=== PATIENT | female | born 1945 | race Caucasian/White ===

== ENCOUNTER → 2020-05-23 09:55 | Outpatient (BNVA) | payer MEDICARE, SELFPAY | PROVIDERS: PCP Nurse Practitioner Family; Visit Provider Surgery | DX: L72.0 Epidermal cyst (principal) | CPT/HCPCS: 99203 ==

== ENCOUNTER 2020-06-11 09:30 | Outpatient (REF) | payer MEDICARE, SELFPAY | END 2020-06-11 09:31 | disposition home or self-care (01) | LOC: HO.LAB 09:30 | PROVIDERS: PCP Nurse Practitioner Family; Visit Provider Surgery | DX: L72.0 Epidermal cyst (principal) | CPT/HCPCS: 11401; 88304 ==

== ENCOUNTER → 2020-06-18 08:29 | Outpatient (BNVA) | payer MEDICARE, SELFPAY | PROVIDERS: PCP Nurse Practitioner Family; Visit Provider Surgery | DX: L72.0 Epidermal cyst (principal); Z87.891 Personal history of nicotine dependence | CPT/HCPCS: 99212 ==

== ENCOUNTER 2020-09-12 07:31 | Outpatient (REF) | payer MEDICARE, SELFPAY ==
--- NOTE | 2020-09-12 07:34 | FL_ITS ---
EXAMINATION: FL BARIUM SWALLOW CLINICAL INFORMATION: Dysphagia. COMPARISON: None TECHNIQUE: Barium swallow examination is performed using fluoroscopic evaluation in addition to multiple fluoroscopic spot views. The patient is imaged both upright and prone and using both thick and thin sulfate along with effervescent granules. Fluoroscopy time: 1.1 minutes DAP: 13.4 Gycm2 Images: 42 FINDINGS: Following oral administration of thick barium, barium-coated turkey and granules, there is normal antegrade flow seen from the oral cavity through the pharynx and esophagus into stomach without any evidence of obstruction or narrowing. There is some mucosal irregularity seen at the GE junction. On oral administration of barium tablet, there is transient holdup at the GE junction. FL/FL barium swallow IMPRESSION: Mild mucosal irregularity along the GE junction with transient holdup of barium tablet. Question reflux esophagitis or underlying lesion. Recommend endoscopy for further evaluation.
== END 2020-09-12 07:32 | disposition home or self-care (01) ==
LOC: HO.XRAY 07:31
PROVIDERS: Visit Provider Internal Medicine
DX: R13.10 Dysphagia, unspecified (principal)
CPT/HCPCS: 74220

== ENCOUNTER 2020-09-19 09:56 | Day surgery (SDC) | payer MEDICARE, SELFPAY ==
--- NOTE | 2020-09-17 14:55 | HO.ANESPROP2 ---
Documented by User: Lucie Amanda 09/17/20 14:58 HPI - Anesthesia Eval Consult details Narrative: 75yo F for Upper Endoscopy with Balloon Dilitation PMFSH Past Medical History Medical History Anxiety Depression Diabetes mellitus Fibromyalgia HTN (hypertension) Hypercholesterolemia Hypothyroidism IBS (irritable bowel syndrome) Mini stroke Mononeuritis Osteoarthritis Osteoporosis Surgical History Surgical History H/O local excision of skin lesion History of back surgery Social History Social History Alcohol intake: never Smoking Status: Former smoker Advance Directives: No Advance Directives Information Provided: Yes Meds Allergies Allergy/AdvReac Type Severity Reaction Status Date / Time ibuprofen [From MOTRIN] Allergy Unknown UPSET Verified 05/23/20 10:57 STOMACH Home Medications Medication Instructions Recorded Confirmed Type aspirin 81 mg tablet,delayed 81 mg PO DAILY 05/23/20 06/18/20 History release atorvastatin 40 mg tablet 40 mg PO DAILY 05/23/20 06/18/20 History bisacodyl 5 mg tablet,delayed 5 mg PO DAILY 05/23/20 06/18/20 History release blood sugar diagnostic #10 ea 05/23/20 06/18/20 History chlorhexidine gluconate 0.12 % 5 - 10 ml PO BID 05/23/20 06/18/20 History mouthwash citalopram 20 mg tablet 20 mg PO DAILY 05/23/20 06/18/20 History clonazepam 0.5 mg tablet 0.5 mg PO BID PRN 05/23/20 06/18/20 History diclofenac sodium 1 % topical gel 1 ea TOPICAL DAILY 05/23/20 06/18/20 History diltiazem HCl 360 mg capsule,24 360 mg PO DAILY 05/23/20 06/18/20 History hr,extended release docusate sodium 100 mg capsule 100 mg PO BID 05/23/20 06/18/20 History folic acid 1 mg tablet 1 mg PO DAILY 05/23/20 06/18/20 History glipizide 10 mg tablet, extended 10 mg PO DAILY 05/23/20 06/18/20 History release 24 hr hydrochlorothiazide 12.5 mg capsule 12.5 mg PO DAILY 05/23/20 06/18/20 History lancets 28 gauge #100 ea 05/23/20 06/18/20 History levothyroxine 100 mcg tablet 100 mcg PO DAILY 05/23/20 06/18/20 History lisinopril 40 mg tablet 40 mg PO DAILY 05/23/20 06/18/20 History metformin 500 mg tablet,extended 1,000 mg PO BID 05/23/20 06/18/20 History release 24 hr metoprolol succinate 100 mg 100 mg PO DAILY 05/23/20 06/18/20 History tablet,extended release 24 hr nabumetone 500 mg tablet 500 mg PO DAILY 05/23/20 06/18/20 History nitroglycerin 0.4 mg sublingual 0.4 mg SUBLINGUAL NEEDED PRN 05/23/20 06/18/20 History tablet omeprazole 20 mg capsule,delayed 20 mg PO DAILY 05/23/20 06/18/20 History release ondansetron HCl 4 mg tablet 4 mg PO Q6H PRN 05/23/20 06/18/20 History pregabalin 200 mg capsule 200 mg PO DAILY 05/23/20 06/18/20 History sitagliptin 100 mg tablet 100 mg PO DAILY 05/23/20 06/18/20 History trazodone 50 mg tablet 50 mg PO BEDTIME 05/23/20 06/18/20 History Exam Exam Date and Time: September 17, 2020 1455 Pertinent Lab Results Pertinent Lab Results: Laboratory Tests 05/29/20 05/29/20 11:05 11:05 WBC 11.1 H Hgb 11.1 L Hct 34.6 L Plt Count 484 H Sodium 140 Potassium 4.8 Chloride 107 Carbon Dioxide 25 BUN 16 Creatinine 1.00 follows heme for anemia, leukocytosis, thrombocytosis Assessment and Plan Assessment Anesthesia Assessment: Chart Reviewed Documented by User: Vamsi Haddad MD 09/19/20 11:20 [facility] Past Medical History Medical History Anxiety Depression Diabetes mellitus Fibromyalgia HTN (hypertension) Hypercholesterolemia Hypothyroidism IBS (irritable bowel syndrome) Mini stroke Mononeuritis Osteoarthritis Osteoporosis Surgical History Surgical History H/O local excision of skin lesion History of back surgery Social History Social History Alcohol intake: never Smoking Status: Former smoker Advance Directives: No Advance Directives Information Provided: Yes Meds Allergies Allergy/AdvReac Type Severity Reaction Status Date / Time ibuprofen [From MOTRIN] Allergy Unknown UPSET Verified 05/23/20 10:57 STOMACH Home Medications Medication Instructions Recorded Confirmed Type aspirin 81 mg tablet,delayed 81 mg PO DAILY 05/23/20 06/18/20 History release atorvastatin 40 mg tablet 40 mg PO DAILY 05/23/20 06/18/20 History bisacodyl 5 mg tablet,delayed 5 mg PO DAILY 05/23/20 06/18/20 History release blood sugar diagnostic #10 ea 05/23/20 06/18/20 History chlorhexidine gluconate 0.12 % 5 - 10 ml PO BID 05/23/20 06/18/20 History mouthwash citalopram 20 mg tablet 20 mg PO DAILY 05/23/20 06/18/20 History clonazepam 0.5 mg tablet 0.5 mg PO BID PRN 05/23/20 06/18/20 History diclofenac sodium 1 % topical gel 1 ea TOPICAL DAILY 05/23/20 06/18/20 History diltiazem HCl 360 mg capsule,24 360 mg PO DAILY 05/23/20 06/18/20 History hr,extended release docusate sodium 100 mg capsule 100 mg PO BID 05/23/20 06/18/20 History folic acid 1 mg tablet 1 mg PO DAILY 05/23/20 06/18/20 History glipizide 10 mg tablet, extended 10 mg PO DAILY 05/23/20 06/18/20 History release 24 hr hydrochlorothiazide 12.5 mg capsule 12.5 mg PO DAILY 05/23/20 06/18/20 History lancets 28 gauge #100 ea 05/23/20 06/18/20 History levothyroxine 100 mcg tablet 100 mcg PO DAILY 05/23/20 06/18/20 History lisinopril 40 mg tablet 40 mg PO DAILY 05/23/20 06/18/20 History metformin 500 mg tablet,extended 1,000 mg PO BID 05/23/20 06/18/20 History release 24 hr metoprolol succinate 100 mg 100 mg PO DAILY 05/23/20 06/18/20 History tablet,extended release 24 hr nabumetone 500 mg tablet 500 mg PO DAILY 05/23/20 06/18/20 History nitroglycerin 0.4 mg sublingual 0.4 mg SUBLINGUAL NEEDED PRN 05/23/20 06/18/20 History tablet omeprazole 20 mg capsule,delayed 20 mg PO DAILY 05/23/20 06/18/20 History release ondansetron HCl 4 mg tablet 4 mg PO Q6H PRN 05/23/20 06/18/20 History pregabalin 200 mg capsule 200 mg PO DAILY 05/23/20 06/18/20 History sitagliptin 100 mg tablet 100 mg PO DAILY 05/23/20 06/18/20 History trazodone 50 mg tablet 50 mg PO BEDTIME 05/23/20 06/18/20 History Exam Airway Mallampati Class: III TM Dist: >3cm Neck ROM: Full Denture: Lower Loose/Missing/Broken Teeth: Yes (Upper implants fixed in place, not removable) Heart: RRR Lungs: NL Assessment and Plan Assessment Anesthesia Assessment: Anesthesia Plan Discussed and Chart Reviewed Final Anesthetic Review NPO: Yes ASA Class: III Final Preanesthetic Review: No Changes in Pt Med Stat, Meds/Allgs Chart Reviewed, Consent Obtained/Reviewed and Anes Risks/Benef Reviewed Patient Risk: Intermediate Procedure Risk: Low Anesthetic Plan Anesthetic Plan: MAC: Disposition: Standard PACU
[2020-09-19 11:22] VITALS: BMI 30.2
[2020-09-19 11:23] LABS: Glucose, Whole Blood 110 mg/dL (60-115)
[2020-09-19 11:25] VITALS: BP 155/87; PULSE 87; RESP 18; TEMP 36.1; O2SAT 98
[2020-09-19] MEDS: Lactated Ringers 1,000 ML 50 ML IVCONT (11:35)
[2020-09-19 12:00] VITALS: BP 127/68; PULSE 82; RESP 20; TEMP 36.2; O2SAT 100
--- NOTE | 2020-09-19 12:03 | PM.OP ---
Brief Operative Note Date of Service: 09/19/20 Pre-op diagnosis: Dysphagia, Abnormal Barium Swallow Post-op diagnosis: other (Hiatal hernia, Gastritis, R/O intestinal metaplasia) Procedure: EGD with biopsies and balloon dilation of EG Junction Surgeon: Aurelio Sweeney Anesthesia: MAC Estimated blood loss (mL): 4.0 Pathology: other (A. Gastric antrum) Condition: stable Disposition: PACU
[2020-09-19 12:11] VITALS: BP 152/83; PULSE 82; RESP 20; TEMP 36.2; O2SAT 100
--- NOTE | 2020-09-19 12:24 | OP_ITS ---
SURGEON: Aurelio Sweeney MD INDICATIONS: The patient presents for evaluation of dysphagia and abnormal barium swallow. Full consent has been obtained from her for this, including risks of bleeding and perforation. PREOPERATIVE DIAGNOSIS: POSTOPERATIVE DIAGNOSIS: PROCEDURE PERFORMED: Esophagogastroduodenoscopy with biopsies and balloon dilation of gastroesophageal junction. ESTIMATED BLOOD LOSS: COMPLICATIONS: ANESTHESIA: Monitored anesthesia care. ASSISTANTS: SPECIMENS: PREOPERATIVE DIAGNOSES: Dysphagia and abnormal barium swallow. POSTOPERATIVE DIAGNOSES: Dysphagia and abnormal barium swallow, hiatal hernia, gastritis with probable intestinal metaplasia. DESCRIPTION OF PROCEDURE: The patient was placed in the left lateral decubitus position. The Olympus video gastroscope was passed in the posterior oropharynx and upper esophagus under direct vision. The scope was passed slowly into the distal esophagus. The gastroesophageal junction appeared at 30 cm. There was no sign of any esophageal stricture nor mass. There was no esophagitis. The scope was entered into the stomach. There was a small to moderate-sized hiatal hernia. The scope was advanced to the pylorus and the duodenum was cannulated to the descending portion. The duodenum including the bulb appeared normal without mass or ulceration. The scope was withdrawn back into the stomach. The gastric antrum and body had areas of erythema and probable intestinal metaplasia. There was no ulceration or mass. Biopsies were obtained. There was good peristalsis. Scope was retroflexed visualizing the proximal stomach carefully, which appeared normal, without any mass or ulceration. Scope was straightened. The scope was withdrawn back into the esophagus. Given her symptomatology, I did use a [employer] incremental balloon to dilate the gastroesophageal junction from 18 mm to 19 mm at the recommended pressure for between 30 and 60 seconds each. There was no definitive heme noted post-dilation. The scope was then withdrawn through the remainder of the esophagus, which appeared normal. The scope was withdrawn from the patient. She tolerated the procedure well and was returned to recovery area in stable condition. IMPRESSION: 1. Hiatal hernia. 2. Gastritis, rule out intestinal metaplasia. PLAN: The results of the biopsy will be checked. She has been advised to continue her regular regimen of omeprazole. She was advised not to use any aspirin nor NSAIDs for at least 1 week. She will have her see me in followup within the next 2 to 3 months. MD LYLY Villatoro/JOSE / [phone]
--- NOTE | 2020-09-19 12:30 | HO.POSTANES ---
Post Anesthesia Evaluation Post Anesthesia Evaluation Vital Signs: Vital Signs Temp Pulse Resp BP Pulse Ox 09/19/20 12:11 97.1 F 82 20 152/83 H 100 09/19/20 12:00 97.1 F 82 20 127/68 100 09/19/20 11:25 96.9 F 87 18 155/87 H 98 Anesthesia: Monitored Mental Status: Awake Pain Control: Satisfactory Nausea/Vomiting: None Hydration: Adequate Anesthesia-Related Issues: No Anes. Related Issues
== END 2020-09-19 12:37 | disposition home or self-care (01) ==
PROVIDERS: PCP Nurse Practitioner Family; Visit Provider Internal Medicine
PROC: (CPT 43239; principal; 2020-09-19 11:40)
DX: R13.10 Dysphagia, unspecified (principal); K29.70 Gastritis, unspecified, without bleeding; K44.9 Diaphragmatic hernia without obstruction or gangrene; K21.9 Gastro-esophageal reflux disease without esophagitis; I10 Essential (primary) hypertension; E11.9 Type 2 diabetes mellitus without complications; Z79.82 Long term (current) use of aspirin; Z79.84 Long term (current) use of oral hypoglycemic drugs; Z79.899 Other long term (current) drug therapy
CPT/HCPCS: 43239; 43249; 82947; 88305; 88342

== ENCOUNTER 2020-11-05 07:55 | Emergency (ER) | payer MEDICARE, SELFPAY ==
--- NOTE | ~2020-11-05 | XR_ITS ---
EXAMINATION: XR SHOULDER, RIGHT CLINICAL INFORMATION: Pain post fall COMPARISON: None TECHNIQUE: 2 views of the right shoulder. FINDINGS: Bone alignment is normal. No fracture or dislocation is seen. Joint spaces are normal. There is soft tissue calcification adjacent to the greater tuberosity. XR/XR shoulder RT min 2V IMPRESSION: No fracture or dislocation. Soft tissue calcification adjacent to the right greater tuberosity suggestive of calcific tendinitis.
--- NOTE | ~2020-11-05 | CT_ITS ---
EXAMINATION: CT BRAIN AND CT CERVICAL SPINE WITHOUT CONTRAST CLINICAL INFORMATION: Trauma, status post fall. COMPARISON: CT brain 02/13/2020 TECHNIQUE: 5 mm thin axial and reformatted 2 mm thin sagittal and coronal images of brain were obtained. Axial 3 mm thin and reformatted 2 mm thin sagittal and coronal images of cervical spine were obtained. DL 974 FINDINGS: BRAIN: There is no acute intra-axial, extra-axial bleed, masses, collection or midline shift. There is no acute infarction in evolution. Both lateral ventricles are moderately enlarged but symmetrical. There is diffuse periventricular hypodensity in both cerebral hemispheres without any mass effect. Bone windows reveal no calvarial abnormality. Bilateral paranasal sinuses and mastoid air cells are well-aerated. CERVICAL SPINE: There is mild straightening of cervical lordosis. There is grade 1 anterolisthesis C3 over C4, C4 over C5 and C5 over C6. There is mild posterior spondylosis C4-C5 disc level. The vertebral heights, alignment and disc heights are normal. The craniovertebral junction and C1-C2 alignment is normal. There is no visible acute fracture, dislocation or subluxation. There is mild left C3 3-4, C4-C5, C5-C6 facet joint arthropathy. The airway is widely patent the prevertebral and paravertebral soft tissues are normal. The thyroid lobes are symmetrical and normal. The lung apices are clear. CT/CT cervical spine wo con IMPRESSION: No acute intracranial process seen. Age-related moderate cerebral atrophy with diffuse chronic small vessel microangiopathy in both several hemispheres. There is no visible acute fracture, dislocation except for mild grade 1 anterolisthesis C3 over C4 and C4-C5 and C5 over C6.
--- NOTE | ~2020-11-05 | CT_ITS ---
EXAMINATION: CT BRAIN AND CT CERVICAL SPINE WITHOUT CONTRAST CLINICAL INFORMATION: Trauma, status post fall. COMPARISON: CT brain 02/13/2020 TECHNIQUE: 5 mm thin axial and reformatted 2 mm thin sagittal and coronal images of brain were obtained. Axial 3 mm thin and reformatted 2 mm thin sagittal and coronal images of cervical spine were obtained. DL 974 FINDINGS: BRAIN: There is no acute intra-axial, extra-axial bleed, masses, collection or midline shift. There is no acute infarction in evolution. Both lateral ventricles are moderately enlarged but symmetrical. There is diffuse periventricular hypodensity in both cerebral hemispheres without any mass effect. Bone windows reveal no calvarial abnormality. Bilateral paranasal sinuses and mastoid air cells are well-aerated. CERVICAL SPINE: There is mild straightening of cervical lordosis. There is grade 1 anterolisthesis C3 over C4, C4 over C5 and C5 over C6. There is mild posterior spondylosis C4-C5 disc level. The vertebral heights, alignment and disc heights are normal. The craniovertebral junction and C1-C2 alignment is normal. There is no visible acute fracture, dislocation or subluxation. There is mild left C3 3-4, C4-C5, C5-C6 facet joint arthropathy. The airway is widely patent the prevertebral and paravertebral soft tissues are normal. The thyroid lobes are symmetrical and normal. The lung apices are clear. CT/CT head/brain wo con IMPRESSION: No acute intracranial process seen. Age-related moderate cerebral atrophy with diffuse chronic small vessel microangiopathy in both several hemispheres. There is no visible acute fracture, dislocation except for mild grade 1 anterolisthesis C3 over C4 and C4-C5 and C5 over C6.
[2020-11-05 07:59] VITALS: BP 132/82; PULSE 96; O2SAT 100
[2020-11-05 08:00] VITALS: BP 126/75; PULSE 90; RESP 16; TEMP 37.1; O2SAT 97; BMI 31.8
--- NOTE | 2020-11-05 08:12 | ECG_ITS ---
Test Reason : FALL Blood Pressure : / mmHG Vent. Rate : 086 BPM Atrial Rate : 086 BPM P-R Int : 160 ms QRS Dur : 078 ms QT Int : 378 ms P-R-T Axes : 037 -09 046 degrees QTc Int : 452 ms Normal sinus rhythm Inferior infarct , age undetermined Abnormal ECG When compared with ECG of 13-FEB-2020 17:27, No significant change was found Referred By: Pilar Massey Electronically Signed By:ANIA BILLINGS
--- NOTE | 2020-11-05 08:14 | ED_ITS ---
HPI - Fall General Chief Complaint: Fall Stated Complaint: fall, hit head Time Seen by Provider: 11/05/20 08:02 Source: patient and EMS Mode of arrival: EMS Limitations: language barrier History of Present Illness HPI Narrative: 75 y/o female with history of diabetes, CKD, fibromyalgia who presnets to the ED from home via EMS who sustained an unwitnessed fall at home in the bathroom at 7am today. She states she got out of bed to go to the bathroom and when she got up from the toilet she fell onto her right side. She hit her head on the floor. She did not lose consciousness. She is on aspirin but no anticoagulation. She denies being dizzy or lightheaded prior to falling, that she just stood up too fast. She did not take her blood sugar this morning yet. She called her neighbor who called 911 for her to get evaluated. She reports some right shoulder pain and headache on arrival. She is AAOx3. complaint: fall Onset (ago): hour(s) (1) Fall from: standing Fall witnessed: no Place fall occurred: home Loss of consciousness: none Prolonged down time: no Symptoms prior to fall: none Context: tripped/slipped Location of injury: head Location of injury - extremities: right: shoulder Severity: moderate Quality: aching Associated symptoms (after fall): headache Related Data Home Medications Medication Instructions Recorded Confirmed aspirin 81 mg tablet,delayed 81 mg PO DAILY 05/23/20 06/18/20 release atorvastatin 40 mg tablet 40 mg PO DAILY 05/23/20 06/18/20 bisacodyl 5 mg tablet,delayed 5 mg PO DAILY 05/23/20 06/18/20 release blood sugar diagnostic #10 ea 05/23/20 06/18/20 chlorhexidine gluconate 0.12 % 5 - 10 ml PO BID 05/23/20 06/18/20 mouthwash citalopram 20 mg tablet 20 mg PO DAILY 05/23/20 06/18/20 clonazepam 0.5 mg tablet 0.5 mg PO BID PRN 05/23/20 06/18/20 diclofenac sodium 1 % topical gel 1 ea TOPICAL DAILY 05/23/20 06/18/20 diltiazem HCl 360 mg capsule,24 360 mg PO DAILY 05/23/20 06/18/20 hr,extended release docusate sodium 100 mg capsule 100 mg PO BID 05/23/20 06/18/20 folic acid 1 mg tablet 1 mg PO DAILY 05/23/20 06/18/20 glipizide 10 mg tablet, extended 10 mg PO DAILY 05/23/20 06/18/20 release 24 hr hydrochlorothiazide 12.5 mg capsule 12.5 mg PO DAILY 05/23/20 06/18/20 lancets 28 gauge #100 ea 05/23/20 06/18/20 levothyroxine 100 mcg tablet 100 mcg PO DAILY 05/23/20 06/18/20 lisinopril 40 mg tablet 40 mg PO DAILY 05/23/20 06/18/20 metformin 500 mg tablet,extended 1,000 mg PO BID 05/23/20 06/18/20 release 24 hr metoprolol succinate 100 mg 100 mg PO DAILY 05/23/20 06/18/20 tablet,extended release 24 hr nabumetone 500 mg tablet 500 mg PO DAILY 05/23/20 06/18/20 nitroglycerin 0.4 mg sublingual 0.4 mg SUBLINGUAL NEEDED PRN 05/23/20 06/18/20 tablet omeprazole 20 mg capsule,delayed 20 mg PO DAILY 05/23/20 06/18/20 release ondansetron HCl 4 mg tablet 4 mg PO Q6H PRN 05/23/20 06/18/20 pregabalin 200 mg capsule 200 mg PO DAILY 05/23/20 06/18/20 sitagliptin 100 mg tablet 100 mg PO DAILY 05/23/20 06/18/20 trazodone 50 mg tablet 50 mg PO BEDTIME 05/23/20 06/18/20 Previous Rx's Medication Instructions Recorded tramadol 50 mg tablet 50 mg PO BID PRN #60 tab 06/27/20 Allergies Allergy/AdvReac Type Severity Reaction Status Date / Time ibuprofen [From MOTRIN] Allergy Unknown UPSET Verified 05/23/20 10:57 STOMACH Review of Systems Review of Systems: Constitutional: No Fever, No Chills ENT/Mouth: No sore throat, No Rhinorrhea, No Swallowing Difficulty Eyes: No Eye Pain, No Swelling, No Redness Cardiovascular: No Chest Pain, No SOB, No Orthopnea, No Edema Respiratory: No Cough, No Sputum, No Wheezing, No dyspnea Gastrointestinal: No Nausea, No Vomiting, No Diarrhea, No abdominal Pain, No Hematochezia, No Melena Genitourinary: No Dysuria, No Urinary Frequency, No Hematuria Musculoskeletal: + joint pain, + Myalgias Skin: No Skin Lesions, No rash Neuro: No Weakness, No Numbness, No Dizziness, + Headache Psych: No Anxiety/Panic, No Depression Heme/Lymph: No Bruising, No Lymphadenopathy Endocrine: No Polyuria, No Polydipsia PMFSH Past Medical History Attestation statement: The following information was validated with the patient. Medical History Anxiety Depression Diabetes mellitus Fibromyalgia HTN (hypertension) Hypercholesterolemia Hypothyroidism IBS (irritable bowel syndrome) Mini stroke Mononeuritis Osteoarthritis Osteoporosis Surgical History H/O local excision of skin lesion History of back surgery Social History Social History Alcohol intake: never Smoking Status: Former smoker Advance Directives: No Advance Directives Information Provided: No Physical Exam Vital Signs: Vital Signs: Last Vital Signs Temp 98.7 F 11/05/20 08:00 Pulse 60 11/05/20 12:43 Resp 16 11/05/20 10:06 BP 131/67 11/05/20 12:43 Pulse Ox 96 11/05/20 10:06 Body Mass Index 31.8 Appearance: Alert. Oriented X3. No acute distress. C-collar in place Head: right parietal area with palpable hematoma, tender, no bleeding. no palpable skill fracture Eyes: Pupils equal, round and reactive to light. ENT: Pharynx normal. Neck: C-collar in place, no appreciable cervical spinal tenderness CVS: Normal heart rate and rhythm. Pulses normal. Respiratory: No respiratory distress. Breath sounds normal. Abdomen: Soft and nontender. +BS x4 Skin: Skin warm and dry. Normal skin color. Normal skin turgor. No rashes. Extremities: No lower extremity edema. Right superior shoulder with mild tenderness, no deformity, normal passive ROM. NV Intact distally. Neuro: Oriented X 3. No motor deficit. No sensory deficit. Course Course Course Narrative: 75 y/o female presenting with headhace and shoulder pain after she fell in the bathroom this morning. Question of mechanical fall per history but she is vague in her history. Will get EKG, CT head/neck and basic lab workup as well as orthostatic VS. Will medically cleared will have her evaluated by physical therapy. Reevaluation(s) Reevaluation #1: CT head showing no acute intracranial process. Cervical spine without fracutre - mild grade 1 anterolisthesis C3 over C4 and C4-C5 and C5 over C6. No cervical spinal tenderness on exam. C-collar removed. Lab workup showing mild leukocytosis. UA negative. No signs or symptoms of infeciton. Magnesium is 1.2 - 2 gm IV magnesium given Reevaluation #2: Patient medically cleared and seen by PT. She did well with ambultation. Recommending home with PT which has been arranged by CM. Patient is stable for discharge with plan to follow up with PCP. MDM - Fall Medical Records Attestation: I reviewed the patient's medical records. Lab Data Attestation: I reviewed the patient's lab results. Result diagrams: 11/05/20 08:30 11/05/20 08:30 Labs: Lab Results 11/05/20 11/05/20 11/05/20 Range/Units 08:30 08:30 08:30 WBC 12.0 H (4.8-10.8) X10*3/uL RBC 3.30 L (4.20-5.50) X10*6/uL Hgb 9.7 L (12.0-16.0) g/dl Hct 30.6 L (37-47) % MCV 92.7 (80-98) fL MCH 29.4 (27.0-33.0) pg MCHC 31.7 (31.0-35.0) g/dl RDW 14.0 (11.0-16.0) % Plt Count 410 H (160-400) X10*3/uL MPV 10.3 (9.4-12.3) fL Immature Gran % (Auto) 0.5 H (0.0-0.4) % Neut % (Auto) 72.8 (45-73) % Lymph % (Auto) 17.8 L (20-40) % [place] % (Auto) 6.3 (2-11) % Eos % (Auto) 1.8 (0-4) % Baso % (Auto) 0.8 (0-2) % Lymph # (Auto) 2.1 (1.2-4.9) X10*3/uL [place] # (Auto) 0.8 (0.1-1.2) X10*3/uL Eos # (Auto) 0.2 (0.0-0.4) X10*3/uL Baso # (Auto) 0.1 (0.0-0.2) X10*3/uL Abs Immat Gran (auto) 0.06 H (0.00-0.03) X10*3/uL Absolute Neuts (auto) 8.7 H (2.0-8.3) X10*3/uL Absolute Nucleated RBC 0.000 (0.0-0.012) X10*3/uL Nucleated RBC % (auto) 0.0 (0.0-0.2) /100WBC Hold Blue Top SEE NOTE Sodium 142 (135-145) mmol/L Potassium 4.9 (3.3-5.1) mmol/L Chloride 104 (96-108) mmol/L Carbon Dioxide 24 (22-29) mmol/L Anion Gap 19 (12-20) BUN 16 (9-16) mg/dL Creatinine 0.97 (0.5-1.4) mg/dL Estim Creat Clear Calc 46.9 Estimated GFR 56 Random Glucose 290 H (60-115) mg/dL Calcium 8.7 (8.4-10.2) mg/dL Magnesium 1.2 L* (1.6-2.6) mg/dL Urine Color Urine Appearance Urine pH (5.0-8.0) Ur Specific [place] (1.005-1.025) Urine Protein (NEG-TRACE) MG/DL Urine Glucose (UA) (NEG) MG/DL Urine Ketones (NEG) MG/DL Urine Blood (NEG) Urine Nitrite (NEG) Ur Leukocyte Esterase (NEG) 11/05/20 Range/Units 12:16 WBC (4.8-10.8) X10*3/uL RBC (4.20-5.50) X10*6/uL Hgb (12.0-16.0) g/dl Hct (37-47) % MCV (80-98) fL MCH (27.0-33.0) pg MCHC (31.0-35.0) g/dl RDW (11.0-16.0) % Plt Count (160-400) X10*3/uL MPV (9.4-12.3) fL Immature Gran % (Auto) (0.0-0.4) % Neut % (Auto) (45-73) % Lymph % (Auto) (20-40) % [place] % (Auto) (2-11) % Eos % (Auto) (0-4) % Baso % (Auto) (0-2) % Lymph # (Auto) (1.2-4.9) X10*3/uL [place] # (Auto) (0.1-1.2) X10*3/uL Eos # (Auto) (0.0-0.4) X10*3/uL Baso # (Auto) (0.0-0.2) X10*3/uL Abs Immat Gran (auto) (0.00-0.03) X10*3/uL Absolute Neuts (auto) (2.0-8.3) X10*3/uL Absolute Nucleated RBC (0.0-0.012) X10*3/uL Nucleated RBC % (auto) (0.0-0.2) /100WBC Hold Blue Top Sodium (135-145) mmol/L Potassium (3.3-5.1) mmol/L Chloride (96-108) mmol/L Carbon Dioxide (22-29) mmol/L Anion Gap (12-20) BUN (9-16) mg/dL Creatinine (0.5-1.4) mg/dL Estim Creat Clear Calc Estimated GFR Random Glucose (60-115) mg/dL Calcium (8.4-10.2) mg/dL Magnesium (1.6-2.6) mg/dL Urine Color YELLOW Urine Appearance HAZY Urine pH 5.5 (5.0-8.0) Ur Specific [place] >= 1.030 H (1.005-1.025) Urine Protein NEG (NEG-TRACE) MG/DL Urine Glucose (UA) 100 H (NEG) MG/DL Urine Ketones NEG (NEG) MG/DL Urine Blood NEG (NEG) Urine Nitrite NEG (NEG) Ur Leukocyte Esterase NEG (NEG) ECG Data Attestation: I personally reviewed and interpreted this ECG as follows: ECG interpretation date: 11/05/20 ECG interpretation time: 08:37 Interpretation: normal sinus rhythm, HR 86 bpm, normal CT interval, normal QTc, no ST segment elevations Discharge Plan Discharge Clinical Impression: Hematoma of parietal scalp, Hypomagnesemia Fall Qualifiers: Encounter type: initial encounter Qualified Code(s): W19.XXXA - Unspecified fall, initial encounter Patient Disposition: Home, Self-Care Instructions: Fall Prevention for Older Adults (ED), Contusion in Adults (ED), Hypomagnesemia (ED) Additional Instructions: Your lab work showed low magnesium levels. You were given IV magnesium in the ER. Recommend following up with your doctor in 1 week for repeat blood work. Use ice to the swollen area on your head. Take tylenol as needed for pain. Home Physical Therapy is being arranged for you. If you develop severe headache, dizziness, chest pain or any other concerning symptom come back to the ER. Prescriptions: No Action tramadol 50 mg tablet 50 mg PO BID PRN (Reason: Pain) Qty: 60 RF: 5 Januvia 100 mg tablet 100 mg PO DAILY RF: 0 nabumetone 500 mg tablet 500 mg PO DAILY RF: 0 pregabalin 200 mg capsule 200 mg PO DAILY RF: 0 metformin 500 mg tablet extended release 24 hr 1,000 mg PO BID RF: 0 lisinopril 40 mg tablet 40 mg PO DAILY RF: 0 hydrochlorothiazide 12.5 mg capsule 12.5 mg PO DAILY RF: 0 omeprazole 20 mg capsule,delayed release(DR/EC) 20 mg PO DAILY RF: 0 citalopram 20 mg tablet 20 mg PO DAILY RF: 0 aspirin 81 mg tablet,delayed release (DR/EC) 81 mg PO DAILY RF: 0 diltiazem HCl 360 mg capsule,extended release 24 hr 360 mg PO DAILY RF: 0 glipizide 10 mg tablet extended release 24hr 10 mg PO DAILY RF: 0 metoprolol succinate 100 mg tablet extended release 24 hr 100 mg PO DAILY RF: 0 atorvastatin 40 mg tablet 40 mg PO DAILY RF: 0 trazodone 50 mg tablet 50 mg PO BEDTIME RF: 0 clonazepam 0.5 mg tablet 0.5 mg PO BID PRN (Reason: Anxiety) RF: 0 docusate sodium 100 mg capsule 100 mg PO BID RF: 0 levothyroxine 100 mcg tablet 100 mcg PO DAILY RF: 0 (DME) lancets 28 gauge misc See Rx Instructions ea topical .MEDSUPPLY Qty: 100 RF: 0 (DME) FreeStyle Lite Strips Strip See Rx Instructions ea Not Applicable .MEDSUPPLY Qty: 10 RF: 0 bisacodyl 5 mg tablet,delayed release (DR/EC) 5 mg PO DAILY RF: 0 diclofenac sodium 1 % gel 1 ea topical DAILY RF: 0 nitroglycerin 0.4 mg tablet, sublingual 0.4 mg sublingual NEEDED PRN (Reason: Chest Pain) RF: 0 ondansetron HCl 4 mg tablet 4 mg PO Q6H PRN (Reason: nausea/vomiting) RF: 0 chlorhexidine gluconate 0.12 % mouthwash 5 - 10 ml PO BID RF: 0 folic acid 1 mg tablet 1 mg PO DAILY RF: 0 Referrals: Roberto Carlos Sanford MD [Physician] - 2 days Print Language: Bol[place]ian
[2020-11-05 08:51] LABS: MANUAL DIFF FLAG NO
[2020-11-05 08:54] LABS: Basophils Absolute Auto 0.1 X10*3/uL (0.0-0.2); Basophils Percent Auto 0.8 % (0-2); Eosinophils Absolute Auto 0.2 X10*3/uL (0.0-0.4); Eosinophils Percent Auto 1.8 % (0-4); Hematocrit 30.6 % (37-47); Hemoglobin 9.7 g/dl (12.0-16.0); Imm Gran Abs Auto 0.06 X10*3/uL (0.00-0.03); Imm Gran Pct Auto 0.5 % (0.0-0.4); Lymphocytes Absolute Auto 2.1 X10*3/uL (1.2-4.9); Lymphocytes Percent Auto 17.8 % (20-40); Mean Corpuscular HGB Conc 31.7 g/dl (31.0-35.0); Mean Corpuscular Hemoglobin 29.4 pg (27.0-33.0); Mean Corpuscular Volume 92.7 fL (80-98); Mean Platelet Volume 10.3 fL (9.4-12.3); Monocytes Absolute Auto 0.8 X10*3/uL (0.1-1.2); Monocytes Percent Auto 6.3 % (2-11); Neutrophils Absolute Auto 8.7 X10*3/uL (2.0-8.3); Neutrophils Percent Auto 72.8 % (45-73); Platelet Count 410 X10*3/uL (160-400)
[2020-11-05 09:36] LABS: Anion Gap 19 (12-20); Blood Urea Nitrogen 16 mg/dL (9-16); Calcium 8.7 mg/dL (8.4-10.2); Carbon Dioxide 24 mmol/L (22-29); Chloride 104 mmol/L (96-108); Creatinine Clr Calc Pharmacy 46.9; Estimated Glomerular Filt Rate 56; Glucose Random 290 mg/dL (60-115); Magnesium 1.2 mg/dL (1.6-2.6); Potassium 4.9 mmol/L (3.3-5.1); Sodium 142 mmol/L (135-145)
--- NOTE | 2020-11-05 10:02 | PC.NURSE ---
Pt's wallet returned to pt from EMS.
[2020-11-05 10:06] VITALS: BP 134/78; PULSE 80; RESP 16; O2SAT 96
[2020-11-05] MEDS: Magnesium Sulfate/H2O 2 GM/50 ML PIGGYBACK IV (10:25)
[2020-11-05] MEDS: Acetaminophen 325 MG TABLET 975 MG PO (10:25)
[2020-11-05 12:30] LABS: Glucose Urine UA 100 MG/DL (NEG); Leukocyte Esterase Urine NEG (NEG); Nitrite Urine NEG (NEG); PH 5.5 (5.0-8.0); Specific Gravity - Urine >= 1.030 (1.005-1.025); Urine Blood NEG (NEG); Urine Ketones NEG (NEG); Urine Protein NEG (NEG-TRACE)
[2020-11-05 12:31] LABS: Appearance Urine HAZY; Color Urine YELLOW
[2020-11-05 12:43] VITALS: BP 131/67; PULSE 60
--- NOTE | 2020-11-05 14:27 | MHC.CM.ED ---
Received case management consult from Pilar SALAS. Patient came to ER due to a fall. Work up essentially negative. Physical therapy eval completed. Home therapy is recommended. Patient is active with [facility]. Spoke with Valencia at [facility]. Their agency will provide home therapy to patient. Attempted to reach patient's Monica MORRISON via telephone at [phone]. Left voicemail explaining above. Continue to monitor for d/c needs.
== END 2020-11-05 13:03 | disposition home or self-care (01) ==
PROVIDERS: Physician Assistant; Emergency Provider Emergency Medicine
DX: S00.03XA Contusion of scalp, initial encounter (principal); W18.12XA Fall from or off toilet with subsequent striking against object, initial encounter; M25.511 Pain in right shoulder; Y93.89 Activity, other specified; Y92.031 Bathroom in apartment as the place of occurrence of the external cause; Y99.9 Unspecified external cause status; E83.42 Hypomagnesemia; E11.22 Type 2 diabetes mellitus with diabetic chronic kidney disease; I12.9 Hypertensive chronic kidney disease with stage 1 through stage 4 chronic kidney disease, or unspecified chronic kidney disease; N18.9 Chronic kidney disease, unspecified; D63.1 Anemia in chronic kidney disease; Z79.899 Other long term (current) drug therapy
CPT/HCPCS: 36415; 70450; 72125; 73030; 80048; 81003; 83735; 85025; 93005; 96365; 96366; 97161; 99283; 99285; J3475

== ENCOUNTER 2021-02-05 08:08 | Outpatient (REF) | payer MEDICARE, SELFPAY ==
--- NOTE | ~2021-02-05 | XR_ITS ---
EXAMINATION: XR SHOULDER, LEFT CLINICAL INFORMATION: Pain. COMPARISON: None TECHNIQUE: AP external rotation, Grashey, scapular Y, and axillary views of the left shoulder. FINDINGS: The glenohumeral joint space and the AC joint spaces maintain normal. No acute fracture, dislocation or subluxation seen. No joint effusion. No soft tissue abnormality. XR/XR shoulder LT min 2V IMPRESSION: Unremarkable left shoulder exam
== END 2021-02-05 08:09 | disposition home or self-care (01) ==
LOC: HO.HOSX 08:08
PROVIDERS: Visit Provider Physician Assistant
DX: M25.512 Pain in left shoulder (principal)
CPT/HCPCS: 20610; 73030; 99202; J1020

== ENCOUNTER 2021-04-11 18:13 | Emergency (ER) | payer MEDICARE, SELFPAY ==
--- NOTE | 2021-04-11 | ECG_ITS ---
Test Reason : EPIGASTRIC Blood Pressure : / mmHG Vent. 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
--- NOTE | ~2021-04-11 | CT_ITS ---
EXAMINATION: CT ABDOMEN AND PELVIS WITH CONTRAST CLINICAL INFORMATION: Epigastric and right upper quadrant pain. COMPARISON: CT abdomen and pelvis 10/23/2019 TECHNIQUE: Multidetector volumetric images were obtained from the superior aspect of the liver through the pubic symphysis following administration 85 mL of Omnipaque 350 intravenous contrast. Sagittal and coronal reformatted images were obtained on the technologist's workstation. Oral contrast: No This CT examination was performed using dose optimization techniques as appropriate, variously including the following: *Automated exposure control *Adjustment of mA and/or kV according to patient size (this includes techniques or standardized protocols for targeted exams where dose is matched to indication/reason for exam; i.e. extremities or head) *Use of iterative reconstruction technique DLP: 675 mGy-cm FINDINGS: LUNG BASES: The visualized lung bases are clear. There are scattered areas of groundglass attenuation which represents subsegmental atelectasis. There is a 4 mm calcified granuloma at the left base. Imaged heart is not enlarged and there is no pericardial effusion. LIVER, GALLBLADDER, AND BILIARY TREE: The liver is normal in size, shape, and attenuation. No focal hepatic lesion or intrahepatic biliary ductal dilatation is present. The gallbladder is distended. There is no wall thickening or pericholecystic inflammation. The common duct is dilated and measures approximately 1 cm in diameter before abruptly tapering. The appearance is similar to prior CT 10/23/2019, though previously the duct measured 7 to 8 mm. PANCREAS: Unremarkable. SPLEEN: There is a punctate calcification within the upper pole the spleen which may represent a granuloma. The spleen is otherwise unremarkable. ADRENAL GLANDS: Unremarkable. KIDNEYS AND URETERS: The kidneys are normal in size, shape, and attenuation. No hydronephrosis, hydroureter, or calculi seen. No perinephric stranding. There is a calyceal diverticulum versus renal sinus cyst at the right lower pole which measures approximately 1.9 cm in diameter. There is a 1.3 cm cyst at the midpole the right kidney which is unchanged. There are several small parapelvic cysts at the left lower pole. BLADDER: Unremarkable. GASTROINTESTINAL TRACT: There is a moderate hiatus hernia with a calcification at the level the gastroesophageal junction which was seen on the prior study. There is mild circumferential thickening of the distal esophagus. Would correlate for reflux esophagitis. The remaining portion of the stomach is decompressed and overall essentially unremarkable. The small and large bowel are nondilated. There are no bowel wall inflammatory changes. There is a normal appendix. There is colonic diverticulosis without inflammation to suggest diverticulitis. There is a partially calcified ovoid 1.2 x 0.7 cm structure associated with the cecum/proximal ascending colon (image 347, series 4) which is unchanged from prior and may represent a calcified epiploic appendage. ABDOMINAL WALL: No significant hernia is appreciated. LYMPH NODES: Normal. VASCULAR: Unremarkable. PELVIC VISCERA: The uterus is surgically absent. No adnexal lesions are identified. OSSEOUS STRUCTURES: There is grade 1 anterolisthesis of L4 on L5 and postsurgical changes relating to postsurgical fusion at this level. No acute or aggressive bony abnormality is identified. CT/CT abdomen pelvis w con IMPRESSION: Dilated common duct measuring approximately 1 cm in diameter with abrupt tapering at the level of the ampulla. Would correlate with total bilirubin and alkaline phosphatase. Further evaluation could be considered with right upper quadrant ultrasound. Moderate hiatus hernia with circumferential thickening of the distal esophagus. Would recommend correlation for reflux esophagitis. Colonic diverticulosis.
[2021-04-11 18:29] VITALS: BP 207/99; PULSE 114; RESP 18; TEMP 37.4; O2SAT 100; BMI 32.2
[2021-04-11 18:48] LABS: MANUAL DIFF FLAG NO
[2021-04-11 18:49] LABS: Basophils Absolute Auto 0.1 X10*3/uL (0.0-0.2); Basophils Percent Auto 0.5 % (0-2); Eosinophils Absolute Auto 0.1 X10*3/uL (0.0-0.4); Eosinophils Percent Auto 0.7 % (0-4); Hematocrit 32.5 % (37-47); Hemoglobin 10.6 g/dl (12.0-16.0); Imm Gran Abs Auto 0.08 X10*3/uL (0.00-0.03); Imm Gran Pct Auto 0.6 % (0.0-0.4); Lymphocytes Absolute Auto 2.4 X10*3/uL (1.2-4.9); Lymphocytes Percent Auto 18.7 % (20-40); Mean Corpuscular HGB Conc 32.6 g/dl (31.0-35.0); Mean Corpuscular Hemoglobin 29.8 pg (27.0-33.0); Mean Corpuscular Volume 91.3 fL (80-98); Mean Platelet Volume 9.8 fL (9.4-12.3); Monocytes Percent Auto 7.6 % (2-11); Neutrophils Absolute Auto 9.4 X10*3/uL (2.0-8.3); Neutrophils Percent Auto 71.9 % (45-73); Platelet Count 413 X10*3/uL (160-400); Red Blood Count 3.56 X10*6/uL (4.20-5.50); Red Cell Distribution Width 14.8 % (11.0-16.0); White Blood Count 13.1 X10*3/uL (4.8-10.8)
[2021-04-11 19:24] LABS: Alanine Aminotransferase 12 U/L (0-31); Albumin Level 3.7 g/dL (3.5-5.0); Alkaline Phosphatase 80 U/L (39-117); Anion Gap 14 (12-20); Aspartate Amino Transferase 11 U/L (5-31); Bilirubin Total < 0.2 mg/dL (0.0-1.0); Blood Urea Nitrogen 18 mg/dL (9-16); Calcium 8.5 mg/dL (8.4-10.2); Carbon Dioxide 24 mmol/L (22-29); Chloride 106 mmol/L (96-108); Creatinine Clr Calc Pharmacy 44.4; Estimated Glomerular Filt Rate 52; Glucose Random 252 mg/dL (60-115); Potassium 4.2 mmol/L (3.3-5.1); Sodium 140 mmol/L (135-145); Total Protein 6.3 g/dL (6.5-8.0)
--- NOTE | 2021-04-11 19:30 | ED_ITS ---
HPI - Abdominal Pain General Chief Complaint: Abdominal Pain <MARITZA Connell Last Filed: 04/11/21 21:17> Stated Complaint: ABD PAIN <MARITZA Connell Last Filed: 04/11/21 21:17> Time Seen by Provider: 04/11/21 18:18 <MARITZA Connell Last Filed: 04/11/21 21:17> Source: patient <MARITZA Connell Last Filed: 04/11/21 21:17> Mode of arrival: EMS <MARITZA Connell Last Filed: 04/11/21 21:17> Limitations: language barrier <MARITZA Connell Last Filed: 04/11/21 21:17> History of Present Illness HPI narrative: 75-year-old female presents with epigastric and right upper quadrant pain that started this morning. The pain is severe. The pain was worse after eating, and radiates to her right upper back. She is nauseous but has not vomited. No fevers, no dysuria or hematuria, no diarrhea. Patient has had a hysterectomy, b ut no other abdominal surgeries. She is vaccinated for Covid. <MARITZA Ann - Last Filed: 04/11/21 21:17> MD elicited complaint: abdominal pain <MARITZA Connell Last Filed: 04/11/21 21:17> Onset (ago): hour(s) (8) <MARITZA Connell Last Filed: 04/11/21 21:17> Pain Consistency: constant <MARITZA Connell Last Filed: 04/11/21 21:17> Location: RUQ <MARITZA Connell Last Filed: 04/11/21 21:17> Severity: severe <MARITZA Connell Last Filed: 04/11/21 21:17> Pain scale (0-10): 10 <MARITZA Connell Last Filed: 04/11/21 21:17> Quality: stabbing and burning <MARITZA Connell Last Filed: 04/11/21 21:17> Radiation: back <MARITZA Connell Last Filed: 04/11/21 21:17> Migration to: no migration <MARITZA Connell - Last Filed: 04/11/21 21:17> Exacerbating factors: eating <MARITZA Connell - Last Filed: 04/11/21 21:17> Relieving factors: nothing <MARITZA Connell - Last Filed: 04/11/21 21:17> Related Data Home Medications: Home Medications Medication Instructions Recorded Confirmed aspirin 81 mg tablet,delayed 81 mg PO DAILY 05/23/20 06/18/20 release atorvastatin 40 mg tablet 40 mg PO DAILY 05/23/20 06/18/20 bisacodyl 5 mg tablet,delayed 5 mg PO DAILY 05/23/20 06/18/20 release blood sugar diagnostic #10 ea 05/23/20 06/18/20 chlorhexidine gluconate 0.12 % 5 - 10 ml PO BID 05/23/20 06/18/20 mouthwash citalopram 20 mg tablet 20 mg PO DAILY 05/23/20 06/18/20 clonazepam 0.5 mg tablet 0.5 mg PO BID PRN 05/23/20 06/18/20 diclofenac sodium 1 % topical gel 1 ea TOPICAL DAILY 05/23/20 06/18/20 diltiazem HCl 360 mg capsule,24 360 mg PO DAILY 05/23/20 06/18/20 hr,extended release docusate sodium 100 mg capsule 100 mg PO BID 05/23/20 06/18/20 folic acid 1 mg tablet 1 mg PO DAILY 05/23/20 06/18/20 glipizide 10 mg tablet, extended 10 mg PO DAILY 05/23/20 06/18/20 release 24 hr hydrochlorothiazide 12.5 mg capsule 12.5 mg PO DAILY 05/23/20 06/18/20 lancets 28 gauge #100 ea 05/23/20 06/18/20 levothyroxine 100 mcg tablet 100 mcg PO DAILY 05/23/20 06/18/20 lisinopril 40 mg tablet 40 mg PO DAILY 05/23/20 06/18/20 metformin 500 mg tablet,extended 1,000 mg PO BID 05/23/20 06/18/20 release 24 hr metoprolol succinate 100 mg 100 mg PO DAILY 05/23/20 06/18/20 tablet,extended release 24 hr nabumetone 500 mg tablet 500 mg PO DAILY 05/23/20 06/18/20 nitroglycerin 0.4 mg sublingual 0.4 mg SUBLINGUAL NEEDED PRN 05/23/20 06/18/20 tablet omeprazole 20 mg capsule,delayed 20 mg PO DAILY 05/23/20 06/18/20 release ondansetron HCl 4 mg tablet 4 mg PO Q6H PRN 05/23/20 06/18/20 pregabalin 200 mg capsule 200 mg PO DAILY 05/23/20 06/18/20 sitagliptin 100 mg tablet 100 mg PO DAILY 05/23/20 06/18/20 trazodone 50 mg tablet 50 mg PO BEDTIME 05/23/20 06/18/20 Previous Rx's Medication Instructions Recorded tramadol 50 mg tablet 50 mg PO BID PRN #60 tab 01/02/21 omeprazole 20 mg capsule,delayed 20 mg PO BID 14 Days #28 cap 04/12/21 release <MARITZA Connell Last Filed: 04/11/21 21:17> Allergies/Adverse Reactions: Allergies Allergy/AdvReac Type Severity Reaction Status Date / Time ibuprofen [From MOTRIN] Allergy Unknown UPSET Verified 02/05/21 09:11 STOMACH <MARITZA Connell Last Filed: 04/11/21 21:17> Review of Systems Constitutional: Denies body ache(s), Denies chills, Denies fever(s), Denies headache(s) and Denies weakness <MARITZA Connell Last Filed: 04/11/21 21:17> Eyes: Denies blurry vision and Denies eye pain <MARITZA Connell Last Filed: 04/11/21 21:17> Denies dysphagia, Denies otalgia, Denies headache(s) and Denies sore throat <MARITZA Connell Last Filed: 04/11/21 21:17> Cardiovascular: Denies chest pain, Denies leg edema, Denies lightheadedness and Denies dyspnea <MARITZA Connell Last Filed: 04/11/21 21:17> Respiratory: Denies chest congestion, Denies cough and Denies dyspnea <MARITZA Connell Last Filed: 04/11/21 21:17> Gastrointestinal: Reports abdominal pain, Denies melena, Denies hematochezia, Denies tenesmus, Denies change in stool character, Denies dysphagia, Denies diarrhea, Reports nausea, Denies vomiting and Denies hematemesis <MARITZA Connell - Last Filed: 04/11/21 21:17> Genitourinary: Denies hematuria, Denies dysuria, Denies pelvic pain, Denies flank pain, Denies urinary incontinence, Denies urinary hesitancy, Denies urinary urgency and Denies vaginal discharge <MARITZA Connell - Last Filed: 04/11/21 21:17> Musculoskeletal: Reports back pain, Denies myalgias and Denies muscle weakness <MARITZA Connell - Last Filed: 04/11/21 21:17> Skin/Breast: Denies erythema and Denies rash <MARITZA Connell - Last Filed: 04/11/21 21:17> Denies headache(s) and Denies weakness <MARITZA Connell - Last Filed: 04/11/21 21:17> Physical Exam Vital Signs: Vital Signs: Last Vital Signs Temp 99.3 F 04/11/21 18:29 Pulse 110 H 04/11/21 23:25 Resp 20 04/11/21 23:25 BP 196/95 H 04/11/21 21:04 Pulse Ox 100 04/11/21 18:29 Body Mass Index 32.2 <MARITZA Connell - Last Filed: 04/11/21 21:17> Vital Signs: Last Vital Signs Temp 99.3 F 04/11/21 18:29 Pulse 110 H 04/11/21 23:25 Resp 20 04/11/21 23:25 BP 196/95 H 04/11/21 21:04 Pulse Ox 100 04/11/21 18:29 Body Mass Index 32.2 <Nataly Wilde NP - Last Filed: 04/12/21 00:26> Const: General: alert, awake, acute distress (d/t pain) moderate and anxious <MARITZA Connell - Last Filed: 04/11/21 21:17> Nutritional Appearance: well nourished <MARITZA Connell - Last Filed: 04/11/21 21:17> Orientation/consciousness: patient oriented x3 <MARITZA Connell - Last Filed: 04/11/21 21:17> Limitations: no limitations <Rukhsana Flores [facility] Last Filed: 04/11/21 21:17> HENMT: Head: Yes normal to inspection, Yes normocephalic and Yes atraumatic <Rukhsana Flores [facility] Last Filed: 04/11/21 21:17> Ears: hearing grossly normal bilaterally <Rukhsana Flores [facility] Last Filed: 04/11/21 21:17> General nose exam: Normal external nose present <Rukhsanaalbertina Mcleodmonster [facility] Last Filed: 04/11/21 21:17> Face and sinus: Yes normal facial exam <Rukhsana Flores [facility] Last Filed: 04/11/21 21:17> Eyes: Pupils: Equal, round and reactive pupils present <Rukhsana Flores [facility] Last Filed: 04/11/21 21:17> EOM: EOMs intact bilaterally <Rukhsanaalbertina Flores [facility] Last Filed: 04/11/21 21:17> Neck: Neck: Yes normal visual inspection, Yes full ROM, Yes no meningeal signs, Yes trachea midline and Yes supple <Rukhsana Flores [facility] Last Filed: 04/11/21 21:17> Resp: Effort & Inspection: normal respiratory effort and able to speak in complete sentences <Rukhsana Flores [facility] Last Filed: 04/11/21 21:17> Auscultation: clear to auscultation bilaterally, no crackles, no rales, no rhonchi and no wheezes <Rukhsana Flores [facility] Last Filed: 04/11/21 21:17> Cardio: Rate: tachycardic <Rukhsana Sandra [facility] Last Filed: 04/11/21 21 :17> Rhythm: regular rhythm <Rukhsanaalbertina Flores [facility] Last Filed: 04/11/21 21:17> Heart sounds: S1 normal heart sound present and S2 normal heart sound present <Rukhsana Flores [facility] Last Filed: 04/11/21 21:17> GI: Inspection: Yes obesity <Rukhsanaalbertina Flores [facility] Last Filed: 04/11/21 21:17> Palpation (GI): Soft to palpation, Tenderness to palpation present (GI) in the epigastrum, in the RUQ and Burkett's sign positive, Guarding due to palpation present (GI) in the RUQ and not rigid <MARITZA Connell - Last Filed: 04/11/21 21:17> Percussion: Yes normal to percussion <MARITZA Connell Last Filed: 04/11/21 21:17> Auscultation: normal bowel sounds <MARITZA Connell - Last Filed: 04/11/21 21:17> : General: Yes no CVA tenderness <MARITZA Connell - Last Filed: 04/11/21 21:17> Back/Spine/Pelvis: Back: no CVA tenderness <MARITZA Connell Last Filed: 04/11/21 21:17> Skin: General skin exam: no rashes or lesions noted <MARITZA Connell Last Filed: 04/11/21 21:17> Neuro: General: patient oriented x3 and no meningeal signs <MARITZA Connell Last Filed: 04/11/21 21:17> Cranial nerves: Yes CN's II-XII intact bilaterally, Yes Facial sensation intact/muscles of mastication intact and Yes Equal, round and reactive pupils present <MARITZA Connell Last Filed: 04/11/21 21:17> Cognition (Neuro): normal cognition <MARITZA Connell Last Filed: 04/11/21 21:17> Course Course Course Narrative: 75-year-old female with past medical history of insulin-dependent diabetes, fibromyalgia, IBS, osteoarthritis, TIA, anxiety depression, hypertension, and hyperlipidemia, presents for sudden onset of severe right upper quadrant pain and epigastric pain that started this morning. Pain is worse with eating. On exam, patient is tender and guarding in her epigastric region and right upper quadrant. Patient has a heart rate of 114 and elevated blood pressure of 207/99. Gave fluids, Zofran, morphine, will get labs, urine, EKG, and CT abdomen pelvis Patient has a white blood cell count of 13.1 blood glucose 252, negative troponin, lipase 43. Signed patient out to Nataly Wilde, pending CT scan and urine <MARITZA Connell Last Filed: 04/11/21 21:17> 75-year-old female with past medical history of insulin-dependent diabetes, fibromyalgia, IBS, osteoarthritis, TIA, anxiety depression, hypertension, and hyperlipidemia, presents for sudden onset of severe right upper quadrant pain and epigastric pain that started this morning. Pain is worse with eating. On exam, patient is tender and guarding in her epigastric region and right upper quadrant. Patient has a heart rate of 114 and elevated blood pressure of 207/99. Gave fluids, Zofran, morphine, will get labs, urine, EKG, and CT abdomen pelvis Patient has a white blood cell count of 13.1 blood glucose 252, negative troponin, lipase 43. Signed patient out to Nataly Wilde, pending CT scan and urine CT scan is negative for acute findings. Has chronically enlarged bile duct, however the bile duct is 0.2 mm larger than prior study, does show some esophagitis. Will have patient follow-up with Gastroenterology as well as start omeprazole 20 mg twice a day. Will give a dose of Maalox and discharged home. spool maker utilized for all correspondence. Google translate utilized for discharge instructions. <Nataly Wilde NP - Last Filed: 04/12/21 00:26> MDM - Abdominal Pain Medical Records Attestation: I reviewed the patient's medical records. <Nataly Wilde NP - Last Filed: 04/12/21 00:26> Lab Data Attestation: I reviewed the patient's lab results. <Nataly Wilde NP - Last Filed: 04/12/21 00:26> Result diagrams: : 04/11/21 18:43 04/11/21 18:43 <MARITZA Connell - Last Filed: 04/11/21 21:17> Labs: Lab Results 04/11/21 04/11/21 04/11/21 Range/Units 18:43 18:43 18:43 WBC 13.1 H (4.8-10.8) X10*3/uL RBC 3.56 L (4.20-5.50) X10*6/uL Hgb 10.6 L (12.0-16.0) g/dl Hct 32.5 L (37-47) % MCV 91.3 (80-98) fL MCH 29.8 (27.0-33.0) pg MCHC 32.6 (31.0-35.0) g/dl RDW 14.8 (11.0-16.0) % Plt Count 413 H (160-400) X10*3/uL MPV 9.8 (9.4-12.3) fL Immature Gran % (Auto) 0.6 H (0.0-0.4) % Neut % (Auto) 71.9 (45-73) % Lymph % (Auto) 18.7 L (20-40) % [place] % (Auto) 7.6 (2-11) % Eos % (Auto) 0.7 (0-4) % Baso % (Auto) 0.5 (0-2) % Lymph # (Auto) 2.4 (1.2-4.9) X10*3/uL [place] # (Auto) 1.0 (0.1-1.2) X10*3/uL Eos # (Auto) 0.1 (0.0-0.4) X10*3/uL Baso # (Auto) 0.1 (0.0-0.2) X10*3/uL Abs Immat Gran (auto) 0.08 H (0.00-0.03) X10*3/uL Absolute Neuts (auto) 9.4 H (2.0-8.3) X10*3/uL Absolute Nucleated RBC 0.000 (0.0-0.012) X10*3/uL Nucleated RBC % (auto) 0.0 (0.0-0.2) /100WBC Sodium 140 (135-145) mmol/L Potassium 4.2 (3.3-5.1) mmol/L Chloride 106 (96-108) mmol/L Carbon Dioxide 24 (22-29) mmol/L Anion Gap 14 (12-20) BUN 18 H (9-16) mg/dL Creatinine 1.03 (0.5-1.4) mg/dL Estim Creat Clear Calc 44.4 Estimated GFR 52 Random Glucose 252 H D (60-115) mg/dL Calcium 8.5 D (8.4-10.2) mg/dL Total Bilirubin < 0.2 (0.0-1.0) mg/dL AST 11 D (5-31) U/L ALT 12 (0-31) U/L Alkaline Phosphatase 80 D (39-117) U/L Troponin I High Sens < 3.5 (<3.5-17.0) ng/L Total Protein 6.3 L (6.5-8.0) g/dL Albumin 3.7 (3.5-5.0) g/dL Lipase 43 (8-78) U/L Urine Color Urine Appearance Urine pH (5.0-8.0) Ur Specific [place] (1.005-1.025) Urine Protein (NEG-TRACE) MG/DL Urine Glucose (UA) (NEG) MG/DL Urine Ketones (NEG) MG/DL Urine Blood (NEG) Urine Nitrite (NEG) Ur Leukocyte Esterase (NEG) COVID-19 (MOHSEN) (Negative) COVID-19 Clin Com 04/11/21 04/11/21 Range/Units 19:44 21:04 WBC (4.8-10.8) X10*3/uL RBC (4.20-5.50) X10*6/uL Hgb (12.0-16.0) g/dl Hct (37-47) % MCV (80-98) fL MCH (27.0-33.0) pg MCHC (31.0-35.0) g/dl RDW (11.0-16.0) % Plt Count (160-400) X10*3/uL MPV (9.4-12.3) fL Immature Gran % (Auto) (0.0-0.4) % Neut % (Auto) (45-73) % Lymph % (Auto) (20-40) % [place] % (Auto) (2-11) % Eos % (Auto) (0-4) % Baso % (Auto) (0-2) % Lymph # (Auto) (1.2-4.9) X10*3/uL [place] # (Auto) (0.1-1.2) X10*3/uL Eos # (Auto) (0.0-0.4) X10*3/uL Baso # (Auto) (0.0-0.2) X10*3/uL Abs Immat Gran (auto) (0.00-0.03) X10*3/uL Absolute Neuts (auto) (2.0-8.3) X10*3/uL Absolute Nucleated RBC (0.0-0.012) X10*3/uL Nucleated RBC % (auto) (0.0-0.2) /100WBC Sodium (135-145) mmol/L Potassium (3.3-5.1) mmol/L Chloride (96-108) mmol/L Carbon Dioxide (22-29) mmol/L Anion Gap (12-20) BUN (9-16) mg/dL Creatinine (0.5-1.4) mg/dL Estim Creat Clear Calc Estimated GFR Random Glucose (60-115) mg/dL Calcium (8.4-10.2) mg/dL Total Bilirubin (0.0-1.0) mg/dL AST (5-31) U/L ALT (0-31) U/L Alkaline Phosphatase (39-117) U/L Troponin I High Sens (<3.5-17.0) ng/L Total Protein (6.5-8.0) g/dL Albumin (3.5-5.0) g/dL Lipase (8-78) U/L Urine Color STRAW Urine Appearance CLEAR Urine pH 6.0 (5.0-8.0) Ur Specific [place] 1.010 (1.005-1.025) Urine Protein NEG (NEG-TRACE) MG/DL Urine Glucose (UA) 500 H (NEG) MG/DL Urine Ketones NEG (NEG) MG/DL Urine Blood NEG (NEG) Urine Nitrite NEG (NEG) Ur Leukocyte Esterase NEG (NEG) COVID-19 (MOHSEN) Negative (Negative) COVID-19 Clin Com See Note <MARITZA Connell - Last Filed: 04/11/21 21:17> Lab Results 04/11/21 04/11/21 04/11/21 Range/Units 18:43 18:43 18:43 WBC 13.1 H (4.8-10.8) X10*3/uL RBC 3.56 L (4.20-5.50) X10*6/uL Hgb 10.6 L (12.0-16.0) g/dl Hct 32.5 L (37-47) % MCV 91.3 (80-98) fL MCH 29.8 (27.0-33.0) pg MCHC 32.6 (31.0-35.0) g/dl RDW 14.8 (11.0-16.0) % Plt Count 413 H (160-400) X10*3/uL MPV 9.8 (9.4-12.3) fL Immature Gran % (Auto) 0.6 H (0.0-0.4) % Neut % (Auto) 71.9 (45-73) % Lymph % (Auto) 18.7 L (20-40) % [place] % (Auto) 7.6 (2-11) % Eos % (Auto) 0.7 (0-4) % Baso % (Auto) 0.5 (0-2) % Lymph # (Auto) 2.4 (1.2-4.9) X10*3/uL [place] # (Auto) 1.0 (0.1-1.2) X10*3/uL Eos # (Auto) 0.1 (0.0-0.4) X10*3/uL Baso # (Auto) 0.1 (0.0-0.2) X10*3/uL Abs Immat Gran (auto) 0.08 H (0.00-0.03) X10*3/uL Absolute Neuts (auto) 9.4 H (2.0-8.3) X10*3/uL Absolute Nucleated RBC 0.000 (0.0-0.012) X10*3/uL Nucleated RBC % (auto) 0.0 (0.0-0.2) /100WBC Sodium 140 (135-145) mmol/L Potassium 4.2 (3.3-5.1) mmol/L Chloride 106 (96-108) mmol/L Carbon Dioxide 24 (22-29) mmol/L Anion Gap 14 (12-20) BUN 18 H (9-16) mg/dL Creatinine 1.03 (0.5-1.4) mg/dL Estim Creat Clear Calc 44.4 Estimated GFR 52 Random Glucose 252 H D (60-115) mg/dL Calcium 8.5 D (8.4-10.2) mg/dL Total Bilirubin < 0.2 (0.0-1.0) mg/dL AST 11 D (5-31) U/L ALT 12 (0-31) U/L Alkaline Phosphatase 80 D (39-117) U/L Troponin I High Sens < 3.5 (<3.5-17.0) ng/L Total Protein 6.3 L (6.5-8.0) g/dL Albumin 3.7 (3.5-5.0) g/dL Lipase 43 (8-78) U/L Urine Color Urine Appearance Urine pH (5.0-8.0) Ur Specific [place] (1.005-1.025) Urine Protein (NEG-TRACE) MG/DL Urine Glucose (UA) (NEG) MG/DL Urine Ketones (NEG) MG/DL Urine Blood (NEG) Urine Nitrite (NEG) Ur Leukocyte Esterase (NEG) COVID-19 (MOHSEN) (Negative) COVID-19 Clin Com 04/11/21 04/11/21 Range/Units 19:44 21:04 WBC (4.8-10.8) X10*3/uL RBC (4.20-5.50) X10*6/uL Hgb (12.0-16.0) g/dl Hct (37-47) % MCV (80-98) fL MCH (27.0-33.0) pg MCHC (31.0-35.0) g/dl RDW (11.0-16.0) % Plt Count (160-400) X10*3/uL MPV (9.4-12.3) fL Immature Gran % (Auto) (0.0-0.4) % Neut % (Auto) (45-73) % Lymph % (Auto) (20-40) % [place] % (Auto) (2-11) % Eos % (Auto) (0-4) % Baso % (Auto) (0-2) % Lymph # (Auto) (1.2-4.9) X10*3/uL [place] # (Auto) (0.1-1.2) X10*3/uL Eos # (Auto) (0.0-0.4) X10*3/uL Baso # (Auto) (0.0-0.2) X10*3/uL Abs Immat Gran (auto) (0.00-0.03) X10*3/uL Absolute Neuts (auto) (2.0-8.3) X10*3/uL Absolute Nucleated RBC (0.0-0.012) X10*3/uL Nucleated RBC % (auto) (0.0-0.2) /100WBC Sodium (135-145) mmol/L Potassium (3.3-5.1) mmol/L Chloride (96-108) mmol/L Carbon Dioxide (22-29) mmol/L Anion Gap (12-20) BUN (9-16) mg/dL Creatinine (0.5-1.4) mg/dL Estim Creat Clear Calc Estimated GFR Random Glucose (60-115) mg/dL Calcium (8.4-10.2) mg/dL Total Bilirubin (0.0-1.0) mg/dL AST (5-31) U/L ALT (0-31) U/L Alkaline Phosphatase (39-117) U/L Troponin I High Sens (<3.5-17.0) ng/L Total Protein (6.5-8.0) g/dL Albumin (3.5-5.0) g/dL Lipase (8-78) U/L Urine Color STRAW Urine Appearance CLEAR Urine pH 6.0 (5.0-8.0) Ur Specific [place] 1.010 (1.005-1.025) Urine Protein NEG (NEG-TRACE) MG/DL Urine Glucose (UA) 500 H (NEG) MG/DL Urine Ketones NEG (NEG) MG/DL Urine Blood NEG (NEG) Urine Nitrite NEG (NEG) Ur Leukocyte Esterase NEG (NEG) COVID-19 (MOHSEN) Negative (Negative) COVID-19 Clin Com See Note <Nataly Wilde NP - Last Filed: 04/12/21 00:26> Imaging Data CT scan - abdomen: Attestation: I personally reviewed and interpreted this imaging study as follows: <Nataly Wilde NP - Last Filed: 04/12/21 00:26> Radiologist's impression: FINDINGS: LUNG BASES: The visualized lung bases are clear. There are scattered areas of groundglass attenuation which represents subsegmental atelectasis. There is a 4 mm calcified granuloma at the left base. Imaged heart is not enlarged and there is no pericardial effusion.? LIVER, GALLBLADDER, AND BILIARY TREE: The liver is normal in size, shape, and attenuation. No focal hepatic lesion or intrahepatic biliary ductal dilatation is present. The gallbladder is distended. There is no wall thickening or pericholecystic inflammation. The common duct is dilated and measures approximately 1 cm in diameter before abruptly tapering. The appearance is similar to prior CT 10/23/2019, though previously the duct measured 7 to 8 mm. PANCREAS: Unremarkable.? SPLEEN: There is a punctate calcification within the upper pole the spleen which may represent a granuloma. The spleen is otherwise unremarkable. ADRENAL GLANDS: Unremarkable.? KIDNEYS AND URETERS: The kidneys are normal in size, shape, and attenuation. No hydronephrosis, hydroureter, or calculi seen. No perinephric stranding. There is a calyceal diverticulum versus renal sinus cyst at the right lower pole which measures approximately 1.9 cm in diameter. There is a 1.3 cm cyst at the midpole the right kidney which is unchanged. There are several small parapelvic cysts at the left lower pole.? BLADDER: Unremarkable.? GASTROINTESTINAL TRACT: There is a moderate hiatus hernia with a calcification at the level the gastroesophageal junction which was seen on the prior study. There is mild circumferential thickening of the distal esophagus. Would correlate for reflux esophagitis. The remaining portion of the stomach is decompressed and overall essentially unremarkable. The small and large bowel are nondilated. There are no bowel wall inflammatory changes. There is a normal appendix. There is colonic diverticulosis without inflammation to suggest diverticulitis. There is a partially calcified ovoid 1.2 x 0.7 cm structure associated with the cecum/proximal ascending colon (image 347, series 4) which is unchanged from prior and may represent a calcified epiploic appendage.? ABDOMINAL WALL: No significant hernia is appreciated.? LYMPH NODES: Normal. VASCULAR: Unremarkable. PELVIC VISCERA: The uterus is surgically absent. No adnexal lesions are identified.? OSSEOUS STRUCTURES: There is grade 1 anterolisthesis of L4 on L5 and postsurgical changes relating to postsurgical fusion at this level. No acute or aggressive bony abnormality is identified.? CT/CT abdomen pelvis w con IMPRESSION: Dilated common duct measuring approximately 1 cm in diameter with abrupt tapering at the level of the ampulla. Would correlate with total bilirubin and alkaline phosphatase. Further evaluation could be considered with right upper quadrant ultrasound. ? Moderate hiatus hernia with circumferential thickening of the distal esophagus. Would recommend correlation for reflux esophagitis. ? Colonic diverticulosis.? <Nataly Wilde NP - Last Filed: 04/12/21 00:26> Discharge Plan Discharge Clinical Impression: Common bile duct dilatation, Esophagitis, Hernia, hiatal <MARITZA Connell - Last Filed: 04/11/21 21:17> Patient Disposition: Home, Self-Care <MARITZA Connell - Last Filed: 04/11/21 21:17> Instructions: Hiatal Hernia (ED), Diet for Stomach Ulcers and Gastritis (ED), Gastroesophageal Reflux Disease (ED), Esophagitis (ED) <MARITZA Connell - Last Filed: 04/11/21 21:17> Additional Instructions: Fue evaluado por dolor abdominal. La tomograf?a computarizada del abdomen y la pelvis indica gastritis y esofagitis. Tambi?n indica que maldonado conducto biliar est? agrandado. No tiene ninguna elevaci?n de las enzimas hep?felipe o pancre?ti srinivasa. Debe hacer un seguimiento con Gastroenterolog?a. Llame y solicite jenny jose. Te recomend? al Dr. Neri. Brier omeprazol dos veces al d?a ursula los pr?ximos 14 d?as. Puede usar un analg?sico de venta steffany david se indica en el paquete que compra. Kushal por elegir aliza departamento de emergencias para maldonado evaluaci?n. Damien un seguimiento con maldonado m?dico de atenci?n primaria seg?n sea necesario. Regrese al departamento de emergencias por cualquier s?ntoma nuevo, preocupante o que empeore. You were evaluated for abdominal pain. CT scan of abdomen and pelvis indicates gastritis and esophagitis. Also indicates that your bile duct is enlarged. You do not have any liver enzyme or pancreatic enzyme elevation. You must follow-up with Gastroenterology. Please call and request an appointment. I referred you to Dr. Neri. Please take omeprazole twice a day for the next 14 days. You may use [id number] acid reliever as directed on the package that you purchase. Thank you for choosing this emergency department for evaluation. Please follow-up with primary care physician as needed. Return to the emergency department for any new, concerning, or worsening symptoms. <MARITZA Connell - Last Filed: 04/11/21 21:17> Prescriptions: New omeprazole 20 mg capsule,delayed release(DR/EC) 20 mg PO BID 14 Days Qty: 28 RF: 0 No Action tramadol 50 mg tablet 50 mg PO BID PRN (Reason: Pain) Qty: 60 RF: 5 Januvia 100 mg tablet 100 mg PO DAILY RF: 0 nabumetone 500 mg tablet 500 mg PO DAILY RF: 0 pregabalin 200 mg capsule 200 mg PO DAILY RF: 0 metformin 500 mg tablet extended release 24 hr 1,000 mg PO BID RF: 0 lisinopril 40 mg tablet 40 mg PO DAILY RF: 0 hydrochlorothiazide 12.5 mg capsule 12.5 mg PO DAILY RF: 0 omeprazole 20 mg capsule,delayed release(DR/EC) 20 mg PO DAILY RF: 0 citalopram 20 mg tablet 20 mg PO DAILY RF: 0 aspirin 81 mg tablet,delayed release (DR/EC) 81 mg PO DAILY RF: 0 diltiazem HCl 360 mg capsule,extended release 24 hr 360 mg PO DAILY RF: 0 glipizide 10 mg tablet extended release 24hr 10 mg PO DAILY RF: 0 metoprolol succinate 100 mg tablet extended release 24 hr 100 mg PO DAILY RF: 0 atorvastatin 40 mg tablet 40 mg PO DAILY RF: 0 trazodone 50 mg tablet 50 mg PO BEDTIME RF: 0 clonazepam 0.5 mg tablet 0.5 mg PO BID PRN (Reason: Anxiety) RF: 0 docusate sodium 100 mg capsule 100 mg PO BID RF: 0 levothyroxine 100 mcg tablet 100 mcg PO DAILY RF: 0 (DME) lancets 28 gauge misc See Rx Instructions ea topical .MEDSUPPLY Qty: 100 RF: 0 (DME) FreeStyle Lite Strips Strip See Rx Instructions ea Not Applicable .MEDSUPPLY Qty: 10 RF: 0 bisacodyl 5 mg tablet,delayed release (DR/EC) 5 mg PO DAILY RF: 0 diclofenac sodium 1 % gel 1 ea topical DAILY RF: 0 nitroglycerin 0.4 mg tablet, sublingual 0.4 mg sublingual NEEDED PRN (Reason: Chest Pain) RF: 0 ondansetron HCl 4 mg tablet 4 mg PO Q6H PRN (Reason: nausea/vomiting) RF: 0 chlorhexidine gluconate 0.12 % mouthwash 5 - 10 ml PO BID RF: 0 folic acid 1 mg tablet 1 mg PO DAILY RF: 0 <MARITZA Connell - Last Filed: 04/11/21 21:17> Referrals: Keisha Neri MD [Physician] - 2 days (Gastritis, esophagitis, hiatal hernia, dilated bile duct without elevated enzymes) <MARITZA Connell - Last Filed: 04/11/21 21:17> PMFSH Past Medical History Medical History: Medical History Anxiety Depression Diabetes mellitus Fibromyalgia HTN (hypertension) Hypercholesterolemia Hypothyroidism IBS (irritable bowel syndrome) Mini stroke Mononeuritis Osteoarthritis Osteoporosis <MARITZA Connell - Last Filed: 04/11/21 21:17> Surgical History: Surgical History H/O local excision of skin lesion History of back surgery <MARITZA Connell - Last Filed: 04/11/21 21:17> Family History Family History: Family History Sister Diabetes <MARITZA Connell - Last Filed: 04/11/21 21:17> Social History Social History: Social History Alcohol intake: never Advance Directives: No Advance Directives Information Provided: No Current occupational status: disabled 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
[2021-04-11] MEDS: ondansetron HCL 4 MG/2 ML VIAL IVPUSH (19:39)
[2021-04-11] MEDS: Morphine Sulfate 4 MG/ML CARTRIDGE IVPUSH (19:39)
[2021-04-11] MEDS: 0.9 % Sodium Chloride 1,000 ML 999 ML IV (19:39)
--- NOTE | 2021-04-11 19:42 | PC.NURSE ---
EKG obtained. Pt medicated per MAR, IVF infusing. Plan for UA when able. Continue to monitor.
[2021-04-11 19:54] LABS: Lipase 43 U/L (8-78)
[2021-04-11 20:06] LABS: COVID-19 Test Negative (Negative); IDNOW Serial# 9DD0AD1C
[2021-04-11 20:09] LABS: Troponin-I High Sensitivity < 3.5 ng/L (<3.5-17.0)
--- NOTE | 2021-04-11 20:47 | PC.NURSE ---
Pt off to CT on hospital bed.
[2021-04-11 21:04] VITALS: BP 196/95; PULSE 104; RESP 20
--- NOTE | 2021-04-11 21:05 | PC.NURSE ---
Pt ambulating to the bathroom to provide UA, ambulates well with cane. UA obtained and sent. Pt reports no relief of pain/nausea. MD aware. VSS but pt noted to be hypertensive after ambulating to the bathroom. Pt aware of plan to await CT results.
[2021-04-11] MEDS: iohexoL 350 MG/ML 100 ML INFUS..BTL IV (21:09)
[2021-04-11 21:16] LABS: Glucose Urine UA 500 MG/DL (NEG); Leukocyte Esterase Urine NEG (NEG); Nitrite Urine NEG (NEG); Urine Blood NEG (NEG); Urine Ketones NEG (NEG); Urine Protein NEG (NEG-TRACE)
[2021-04-11] MEDS: HYDROmorphone HCl 2 MG/ML VIAL 1 MG IVPUSH (21:23)
[2021-04-11 21:25] LABS: Appearance Urine CLEAR; Color Urine STRAW
[2021-04-11 23:25] VITALS: PULSE 110; RESP 20
[2021-04-11] MEDS: Pantoprazole Sodium 40 MG/10 ML VIAL IVPUSH (23:26)
[2021-04-12] MEDS: Magnesium Hydrox/Alum Hydrox 30 ML ORAL.SUSP PO (00:23)
== END 2021-04-12 00:38 | disposition home or self-care (01) ==
PROVIDERS: Physician Assistant; Emergency Provider Emergency Medicine Emergency Medical Services; PCP Internal Medicine
DX: K83.8 Other specified diseases of biliary tract (principal); K20.90 Esophagitis, unspecified without bleeding; K44.9 Diaphragmatic hernia without obstruction or gangrene; R10.9 Unspecified abdominal pain; R11.0 Nausea; Z20.822 Contact with and (suspected) exposure to COVID-19; E11.9 Type 2 diabetes mellitus without complications; I10 Essential (primary) hypertension; E78.00 Pure hypercholesterolemia, unspecified; Z79.82 Long term (current) use of aspirin; Z79.02 Long term (current) use of antithrombotics/antiplatelets; Z79.899 Other long term (current) drug therapy
CPT/HCPCS: 36415; 74177; 80053; 81003; 83690; 84484; 85025; 87635; 93005; 96361; 96374; 96375; 99284; J1170; J2270; J2405; Q9967

== ENCOUNTER 2021-04-16 12:42 | Outpatient (REF) | payer MEDICARE, SELFPAY ==
--- NOTE | ~2021-04-16 | XR_ITS ---
EXAMINATION: CHEST AND RIGHT RIB X-RAYS CLINICAL INFORMATION: Fluoroscopy knee, pleurisy and right upper quadrant pain COMPARISON: Previous chest x-ray February 2020 TECHNIQUE: 2 views of the chest and 3 views of the right ribs FINDINGS: Chest: The cardiac silhouette does not appear enlarged. The thoracic aorta may be ectatic or tortuous but appears unchanged. Hilar and mediastinal contours are otherwise unremarkable. The lungs are clear. There is no pleural effusion or pneumothorax. There are degenerative changes of the spine. Right RIBS: No fracture or bone lesion is seen. There is soft tissue calcification adjacent to the right greater tuberosity. XR/XR ribs RT 2V IMPRESSION: Chest: No evidence for acute disease in the chest. Degenerative changes of the thoracic spine. Right RIBS: Unremarkable exam.
--- NOTE | ~2021-04-16 | XR_ITS ---
EXAMINATION: CHEST AND RIGHT RIB X-RAYS CLINICAL INFORMATION: Fluoroscopy knee, pleurisy and right upper quadrant pain COMPARISON: Previous chest x-ray February 2020 TECHNIQUE: 2 views of the chest and 3 views of the right ribs FINDINGS: Chest: The cardiac silhouette does not appear enlarged. The thoracic aorta may be ectatic or tortuous but appears unchanged. Hilar and mediastinal contours are otherwise unremarkable. The lungs are clear. There is no pleural effusion or pneumothorax. There are degenerative changes of the spine. Right RIBS: No fracture or bone lesion is seen. There is soft tissue calcification adjacent to the right greater tuberosity. XR/XR chest 2V IMPRESSION: Chest: No evidence for acute disease in the chest. Degenerative changes of the thoracic spine. Right RIBS: Unremarkable exam.
== END 2021-04-16 12:43 | disposition home or self-care (01) ==
LOC: HO.XRAY 12:42
PROVIDERS: Absent Provider Internal Medicine; PCP Internal Medicine; Visit Provider Family Medicine
DX: R07.81 Pleurodynia (principal); R09.1 Pleurisy; R10.11 Right upper quadrant pain
CPT/HCPCS: 71046; 71100

== ENCOUNTER 2021-04-27 08:14 | Outpatient (REF) | payer MEDICARE, SELFPAY ==
--- NOTE | ~2021-04-27 | US_ITS ---
EXAMINATION: US ABDOMEN COMPLETE CLINICAL INFORMATION: Right upper quadrant pain. COMPARISON: CT of the abdomen and pelvis March 2021 TECHNIQUE: Real-time imaging of the abdominal viscera. FINDINGS: PANCREAS: The head and body the pancreas are normal. The tail is not seen due to bowel gas. ABDOMINAL AORTA: The proximal, mid, and distal segments are normal in caliber. INFERIOR VENA CAVA: Visualized portions are normal. LIVER: Normal. The liver is normal in size. The liver contour is normal. Parenchymal echogenicity is normal. No focal hepatic lesion. There is no intrahepatic biliary duct dilatation seen. GALLBLADDER: The gallbladder is filled with hypoechoic material and small mobile hyperechoic densities questionable for bile salts versus tiny stones. The gallbladder is upper normal in size.. The gallbladder wall is thickened measuring 0.6 cm. There is some fluid in the gallbladder wall. There is no pericholecystic fluid. COMMON BILE DUCT: Normal in caliber measuring 0.5 cm in diameter. RIGHT KIDNEY: There are 2 small cysts in the lower pole measuring 1.3 x 1.9 x 1.4 cm and 2.2 x 1.9 x 2.1 cm. No hydronephrosis. No renal calculi. The kidney measures 10 cm in maximum dimension. LEFT KIDNEY: There is a cyst in the midpole measuring 0.8 x 0.7 x 0.9 cm. No hydronephrosis. No renal calculi 10 The kidney measures 9.5 cm in maximum dimension. SPLEEN: Normal. The spleen measures 8.3 cm in maximum dimension. FREE FLUID: None. US/US abdomen complete IMPRESSION: Abnormal appearing gallbladder. The gallbladder gallbladder is filled with hypoechoic material and mobile echogenic densities questionable for bile salts or tiny stones. The gallbladder wall is thickened and edematous. Appearance is concerning for possible acute cholecystitis. HIDA scan may be helpful. Findings will be communicated by the [place] work flow learning facilitator Tanvi Ramires.
== END 2021-04-27 08:15 | disposition home or self-care (01) ==
LOC: HO.US 08:14
PROVIDERS: PCP Internal Medicine; Visit Provider Internal Medicine
DX: R10.11 Right upper quadrant pain (principal)
CPT/HCPCS: 76700

== ENCOUNTER 2021-05-14 13:48 | Outpatient (REF) | payer MEDICARE, SELFPAY ==
[2021-05-14 14:16] LABS: MANUAL DIFF FLAG NO
[2021-05-14 14:38] LABS: Basophils Absolute Auto 0.1 X10*3/uL (0.0-0.2); Basophils Percent Auto 0.6 % (0-2); Eosinophils Absolute Auto 0.2 X10*3/uL (0.0-0.4); Eosinophils Percent Auto 1.4 % (0-4); Hematocrit 34.8 % (37-47); Hemoglobin 10.6 g/dl (12.0-16.0); Imm Gran Abs Auto 0.07 X10*3/uL (0.00-0.03); Imm Gran Pct Auto 0.5 % (0.0-0.4); Lymphocytes Absolute Auto 2.5 X10*3/uL (1.2-4.9); Lymphocytes Percent Auto 17.5 % (20-40); Mean Corpuscular HGB Conc 30.5 g/dl (31.0-35.0); Mean Corpuscular Volume 91.8 fL (80-98); Mean Platelet Volume 9.9 fL (9.4-12.3); Monocytes Absolute Auto 0.8 X10*3/uL (0.1-1.2); Monocytes Percent Auto 5.4 % (2-11); Neutrophils Absolute Auto 10.5 X10*3/uL (2.0-8.3); Neutrophils Percent Auto 74.6 % (45-73); Platelet Count 444 X10*3/uL (160-400); Red Blood Count 3.79 X10*6/uL (4.20-5.50); Red Cell Distribution Width 16.9 % (11.0-16.0); White Blood Count 14.1 X10*3/uL (4.8-10.8)
[2021-05-14 15:19] LABS: Alanine Aminotransferase 10 U/L (0-31); Albumin Level 3.5 g/dL (3.5-5.0); Alkaline Phosphatase 98 U/L (39-117); Aspartate Amino Transferase 12 U/L (5-31); Bilirubin Direct < 0.2 mg/dL (0.0-0.5); Bilirubin Total < 0.2 mg/dL (0.0-1.0); Iron 32 mcg/dL (30-160); Lipase 37 U/L (8-78); Percent Iron Saturation 12 % (15-50); Total Iron Binding Capacity 257 mcg/dL (228-428); Total Protein 6.3 g/dL (6.5-8.0); Unsaturated Iron Binding 225 ug/dL
[2021-05-14 15:29] LABS: Ferritin 32 ng/mL (10-250)
[2021-05-14 15:42] LABS: Folate 11.1 ng/mL (> or = 4.0); Vitamin B12 783 pg/mL (200-900)
== END 2021-05-14 13:49 | disposition home or self-care (01) ==
LOC: HO.LAB 13:48
PROVIDERS: PCP Internal Medicine; Visit Provider Internal Medicine
DX: R10.11 Right upper quadrant pain (principal); R93.2 Abnormal findings on diagnostic imaging of liver and biliary tract; K80.20 Calculus of gallbladder without cholecystitis without obstruction
CPT/HCPCS: 36415; 80076; 82607; 82728; 82746; 83540; 83690; 85025

== ENCOUNTER 2021-05-19 | Outpatient (REF) | payer MEDICARE, SELFPAY | END 2021-05-19 00:01 | disposition home or self-care (01) | LOC: CF | PROVIDERS: PCP Internal Medicine; Visit Provider Surgery | DX: K80.00 Calculus of gallbladder with acute cholecystitis without obstruction (principal) | CPT/HCPCS: 99202 ==

== ENCOUNTER → 2021-05-22 09:07 | Outpatient (REF) | payer MEDICARE, SELFPAY ==
--- NOTE | 2021-05-22 09:16 | CA_ITS ---
Transthoracic Echocardiogram Patient (Last, First, Middle): Mikal Canela, Gender: Female Date of : 1945 Age: 75 Procedure Date: 05/22/2021 Procedure Type: Transthoracic Echocardiogram Location: OP Height: 154.94 cm Weight: 72.58 kg BSA: 1.72 m2 Heart Rate: bpm BP: 110 / 60 mmHg Geological Technician: AMINAH/NATALIE Referring MD: Roberto Carlos Sanford MD Symptoms: SYSTOLIC MURMUR AT RUSB R01.1 Study Quality: Fair Conclusions: - Normal left ventricular size and systolic function. - Elevated filling pressures. - Normal right ventricular cavity size and systolic function. - There is mild aortic valve stenosis. There is mild aortic valve regurgitation. - There is mild dilatation of the ascending aorta. - The inferior vena cava is normal in size and collapses greater than 50% with inspiration. Findings Left Ventricle Normal left ventricular size and systolic function. There is moderately increased left ventricular wall thickness. The visually estimated ejection fraction is between 65-70%. There is no evidence of regional wall motion abnormalities. Abnormal diastolic function is noted. Spectral Doppler is indicative of an impaired relaxation filling pattern. Elevated filling pressures. Right Ventricle Normal right ventricular cavity size and systolic function. Atria The left atrium is mildly dilated. The right atrium is normal in size. Aortic Valve There is mild calcification of the aortic valve. There is mild thickening of the aortic valve. There is mild aortic valve stenosis. There is mild aortic valve regurgitation. Mitral Valve There is mild mitral annular calcification. There is trace mitral valve regurgitation. There is no mitral valve stenosis. Pulmonic Valve Normal pulmonic valve structure and function. There is trace pulmonic valve regurgitation. Tricuspid Valve Normal tricuspid valve structure and function. There is trace tricuspid valve regurgitation. Great Vessels There is mild dilatation of the ascending aorta. The visualized portions of the pulmonary artery and branches are normal. Venous The inferior vena cava is normal in size and collapses greater than 50% with inspiration. Pericardium/Pleural There is no evidence of pericardial effusion. Prior Study Comparison No prior study available for comparison. Measurements 2D Linear Measurements IVSd: 1.29 0.6-0.9/0.6-1.0 cm LVIDd: 3.18 3.9-5.3/4.2-5.9 cm LVIDd Index: 1.85 2.4-3.2/2.2-3.1 cm/m2 LVIDs: 2.39 2.0-3.6 cm LVPWd: 1.24 0.7-1.1 cm Ao Root: 3.50 2.1-3.5 cm LA Diam: 3.30 2.7-3.8/3.0-4.0 cm LAIDs Index: 1.92 1.5-2.3 cm/m2 LV Mass: 160.17 67-162/88-224 g LV Mass Index: 93.12 43-95/49-115 g/m2 LVOT Diam: 2.00 3.0+(-)1.3 cm 2D Systolic Function EF 4C: 58.50 >55% EF 2C: 62.60 >55% EF BiP: 63.30 >55% Mitral Valve MV Pk E: 1.04 MV PK A: 1.70 MV Decel Time: 123.00 E/A: 0.60 E'Lateral: 7.51 E'Medial: 5.44 E/E' Med: 19.10 E/E' Lat: 13.80 PHT: 36.00 MVA PHT: 6.11 Decel [place]: 8.41 Aortic Valve AoV Pk Hal: 2.72 AoV Mn Hal: 1.81 AoV VTI: 0.54 AoV Pk Grad: 30.00 Aov Mn Grad: 15.00 ADITYA Cont.VTI: 1.29 AI Pk Hal: 3.60 AI [place]: 3.13 LVOT LVOT Pk Hal: 1.11 LVOT Mn Hal: 0.72 LVOT VTI: 0.22 LVOT Pk Grad: 5.00 LVOT Mn Grad: 2.00 LVOT Diam: 2.00 LVOT Area: 3.14 Diastolic Function MV Pk E: 1.04 MV Pk A: 1.70 E/A: 0.60 E'Medial: 5.44 E/E' Med: 19.10 E' Laterial: 7.51 E/E' Lat: 13.80 Right Ventricle TAPSE (mm): 2.00 TVS' Hal: 9.14 Tricuspid Valve TR Pk Hal: 2.51 TR Pk Grad: 25.00 RA Press: 3.00 RVSP: 28.00 Great Vessels Aorta Ao Root-2D: 3.50 2.0-3.7 cm Ao Asc: 3.70 2.1-3.4 cm Ao Arch: 2.50 Updated in Other Vendor System with Status of Final Rufino Lopez MD electronically signed on 05/24/2021 2:18:53 PM with status of Final
== END ==
LOC: HO.CARD 09:07
PROVIDERS: Visit Provider Internal Medicine
DX: R01.1 Cardiac murmur, unspecified (principal)
CPT/HCPCS: 93306

== ENCOUNTER 2021-06-03 13:34 | Inpatient (IN) | payer MEDICARE, SELFPAY ==
--- NOTE | 2021-06-02 09:43 | HO.ANESPROP2 ---
Documented by User: Lucie Patel NP 06/02/21 09:48 HPI - Anesthesia Eval Consult details Narrative: 75yo F for Cholecystectomy Laparoscopic PMFSH Active Problems Active Problems: All Active Problems (Updated 05/31/21 @ 14:39 by Renata Holcomb MD) Epidermal inclusion cyst (Acute) Anemia in chronic kidney disease (Acute) Tendinitis of left rotator cuff (Acute) Cholecystitis, acute with cholelithiasis (Acute) Past Medical History Medical History Anxiety Asthma Depression Diabetes mellitus Diabetic neuropathy Dysphagia Fibromyalgia GERD (gastroesophageal reflux disease) Hiatal hernia HTN (hypertension) Hx of gastritis Hypercholesterolemia Hypothyroidism IBS (irritable bowel syndrome) Mini stroke Mononeuritis On beta jeannie at home Osteoarthritis Osteoporosis Vitamin B 12 deficiency Family History Family History Sister Diabetes Surgical History Surgical History H/O local excision of skin lesion History of ankle surgery History of back surgery History of esophagogastroduodenoscopy (EGD) History of open reduction and internal fixation (ORIF) procedure Hx of hysterectomy Social History Social History Alcohol intake: never Patient Tobacco Use Status: Former Tobacco user Quit Date: >20 yr ago Use of substances other than those prescribed or required for medical reasons: No Are you DNR?: No Advance Directives: No Advance Directives Information Provided: Yes Current occupational status: disabled 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 Meds Allergies Allergy/AdvReac Type Severity Reaction Status Date / Time ibuprofen [From MOTRIN] Allergy Unknown UPSET Verified 06/03/21 10:43 STOMACH Home Medications Medication Instructions Recorded Confirmed Last Taken Type aspirin 81 mg tablet,delayed 81 mg PO DAILY 05/23/20 05/28/21 09/18/20 05:00 History release atorvastatin 40 mg tablet 40 mg PO DAILY 05/23/20 05/28/21 Unknown History bisacodyl 5 mg tablet,delayed 5 mg PO DAILY 05/23/20 05/28/21 Unknown History release blood sugar diagnostic #10 ea 05/23/20 05/28/21 Unknown History chlorhexidine gluconate 0.12 % 5 - 10 ml PO BID 05/23/20 05/28/21 Unknown History mouthwash citalopram 20 mg tablet 20 mg PO DAILY 05/23/20 05/28/21 Unknown History clonazepam 0.5 mg tablet 0.5 mg PO BID PRN 05/23/20 05/28/21 Unknown History diclofenac sodium 1 % topical gel 1 ea TOPICAL DAILY 05/23/20 05/28/21 Unknown History diltiazem HCl 360 mg capsule,24 360 mg PO DAILY 05/23/20 05/28/21 06/03/21 07:30 History hr,extended release docusate sodium 100 mg capsule 100 mg PO BID 05/23/20 05/28/21 Unknown History folic acid 1 mg tablet 1 mg PO DAILY 05/23/20 05/28/21 Unknown History glipizide 10 mg tablet, extended 10 mg PO DAILY 05/23/20 05/28/21 Unknown History release 24 hr hydrochlorothiazide 12.5 mg capsule 12.5 mg PO DAILY 05/23/20 05/28/21 Unknown History lancets 28 gauge #100 ea 05/23/20 05/28/21 Unknown History levothyroxine 100 mcg tablet 100 mcg PO DAILY 05/23/20 05/28/21 06/03/21 07:30 History lisinopril 40 mg tablet 40 mg PO DAILY 05/23/20 05/28/21 Unknown History metformin 500 mg tablet,extended 1,000 mg PO BID 05/23/20 05/28/21 Unknown History release 24 hr metoprolol succinate 100 mg 100 mg PO DAILY 05/23/20 05/28/21 06/03/21 07:30 History tablet,extended release 24 hr nabumetone 500 mg tablet 500 mg PO DAILY 05/23/20 05/28/21 Unknown History nitroglycerin 0.4 mg sublingual 0.4 mg SUBLINGUAL NEEDED PRN 05/23/20 05/28/21 Unknown History tablet ondansetron HCl 4 mg tablet 4 mg PO Q6H PRN 05/23/20 05/28/21 Unknown History pregabalin 200 mg capsule 200 mg PO DAILY 05/23/20 05/28/21 Unknown History sitagliptin 100 mg tablet 100 mg PO DAILY 05/23/20 05/28/21 Unknown History trazodone 50 mg tablet 50 mg PO BEDTIME 05/23/20 05/28/21 Unknown History Exam Exam Date and Time: June 02, 2021 0943 Pertinent Lab Results Pertinent Lab Results: Laboratory Tests 05/28/21 05/28/21 10:35 10:35 WBC 10.6 Hgb 10.0 L Hct 31.7 L Plt Count 400 Sodium 141 Potassium 4.2 Chloride 104 Carbon Dioxide 29 BUN 12 Creatinine 0.95 Narrative Narrative: EKG 03/2021 Vent. Rate : 109 BPM ? ? Atrial Rate : 109 BPM ?? P-R Int : 162 ms? QRS Dur : 082 ms ? ? QT Int : 346 ms ? ? ? P-R-T Axes : 039 -13 056 degrees ?? QTc Int : 465 ms ? Sinus tachycardia Inferior infarct (cited on or before 05-NOV-2020) Abnormal ECG When compared with ECG of 05-NOV-2020 08:27, Heart rate has increased ECHO 05/2021 Conclusions: - Normal left ventricular size and systolic function.? - Elevated filling pressures.? - Normal right ventricular cavity size and systolic function.? ? - There is mild aortic valve stenosis.? There is mild aortic ? ? valve regurgitation. ? - There is mild dilatation of the ascending aorta. ? - The inferior vena cava is normal in size and collapses greater than 50% with inspiration. ? Assessment and Plan Assessment Anesthesia Assessment: Chart Reviewed Documented by User: Margret Rooney MD 06/03/21 11:38 PMFSH Past Medical History Medical History Anxiety Asthma Depression Diabetes mellitus Diabetic neuropathy Dysphagia Fibromyalgia GERD (gastroesophageal reflux disease) Hiatal hernia HTN (hypertension) Hx of gastritis Hypercholesterolemia Hypothyroidism IBS (irritable bowel syndrome) Mini stroke Mononeuritis On beta jeannie at home Osteoarthritis Osteoporosis Vitamin B 12 deficiency Family History Family History Sister Diabetes Surgical History Surgical History H/O local excision of skin lesion History of ankle surgery History of back surgery History of esophagogastroduodenoscopy (EGD) History of open reduction and internal fixation (ORIF) procedure Hx of hysterectomy History of Problems with Anesthesia: No Social History Social History Alcohol intake: never Patient Tobacco Use Status: Former Tobacco user Quit Date: >20 yr ago Use of substances other than those prescribed or required for medical reasons: No Are you DNR?: No Advance Directives: No Advance Directives Information Provided: Yes Current occupational status: disabled 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 Meds Allergies Allergy/AdvReac Type Severity Reaction Status Date / Time ibuprofen [From MOTRIN] Allergy Unknown UPSET Verified 06/03/21 10:43 STOMACH Home Medications Medication Instructions Recorded Confirmed Last Taken Type aspirin 81 mg tablet,delayed 81 mg PO DAILY 05/23/20 05/28/21 09/18/20 05:00 History release atorvastatin 40 mg tablet 40 mg PO DAILY 05/23/20 05/28/21 Unknown History bisacodyl 5 mg tablet,delayed 5 mg PO DAILY 05/23/20 05/28/21 Unknown History release blood sugar diagnostic #10 ea 05/23/20 05/28/21 Unknown History chlorhexidine gluconate 0.12 % 5 - 10 ml PO BID 05/23/20 05/28/21 Unknown History mouthwash citalopram 20 mg tablet 20 mg PO DAILY 05/23/20 05/28/21 Unknown History clonazepam 0.5 mg tablet 0.5 mg PO BID PRN 05/23/20 05/28/21 Unknown History diclofenac sodium 1 % topical gel 1 ea TOPICAL DAILY 05/23/20 05/28/21 Unknown History diltiazem HCl 360 mg capsule,24 360 mg PO DAILY 05/23/20 05/28/21 06/03/21 07:30 History hr,extended release docusate sodium 100 mg capsule 100 mg PO BID 05/23/20 05/28/21 Unknown History folic acid 1 mg tablet 1 mg PO DAILY 05/23/20 05/28/21 Unknown History glipizide 10 mg tablet, extended 10 mg PO DAILY 05/23/20 05/28/21 Unknown History release 24 hr hydrochlorothiazide 12.5 mg capsule 12.5 mg PO DAILY 05/23/20 05/28/21 Unknown History lancets 28 gauge #100 ea 05/23/20 05/28/21 Unknown History levothyroxine 100 mcg tablet 100 mcg PO DAILY 05/23/20 05/28/21 06/03/21 07:30 History lisinopril 40 mg tablet 40 mg PO DAILY 05/23/20 05/28/21 Unknown History metformin 500 mg tablet,extended 1,000 mg PO BID 05/23/20 05/28/21 Unknown History release 24 hr metoprolol succinate 100 mg 100 mg PO DAILY 05/23/20 05/28/21 06/03/21 07:30 History tablet,extended release 24 hr nabumetone 500 mg tablet 500 mg PO DAILY 05/23/20 05/28/21 Unknown History nitroglycerin 0.4 mg sublingual 0.4 mg SUBLINGUAL NEEDED PRN 05/23/20 05/28/21 Unknown History tablet ondansetron HCl 4 mg tablet 4 mg PO Q6H PRN 05/23/20 05/28/21 Unknown History pregabalin 200 mg capsule 200 mg PO DAILY 05/23/20 05/28/21 Unknown History sitagliptin 100 mg tablet 100 mg PO DAILY 05/23/20 05/28/21 Unknown History trazodone 50 mg tablet 50 mg PO BEDTIME 05/23/20 05/28/21 Unknown History Exam Airway Mallampati Class: III (Implants upper) TM Dist: >3cm Neck ROM: Full Loose/Missing/Broken Teeth: No Heart: RRR Lungs: CTA Assessment and Plan Assessment Anesthesia Assessment: Anesthesia Plan Discussed Final Anesthetic Review History of Problems with Anesthesia: No NPO: Yes ASA Class: III Final Preanesthetic Review: Meds/Allgs Chart Reviewed and Consent Obtained/Reviewed Patient Risk: Intermediate Procedure Risk: Intermediate Anesthetic Plan Anesthetic Plan: GA Disposition: Standard PACU
[2021-06-03] VITALS (20 sets, daily range): BP systolic 108–190; BP diastolic 73–102; PULSE 9–99; RESP 4–20; TEMP 36.3–37; O2SAT 94–100; BMI 34.3
[2021-06-03 11:06] LABS: Glucose, Whole Blood 131 mg/dL (60-115)
[2021-06-03] MEDS: Lactated Ringers 1,000 ML 100 ML IVCONT ×2 (11:21→16:55)
--- NOTE | 2021-06-03 11:24 | MHC.SHP ---
Pre-Procedural Eval Section A Date of Service: 06/03/21 The patient is an INPATIENT: No Changes since office visit: Yes Patient answered all questions; No Cold of Flu in the past 2 weeks, No New Medical Problems and No Changes in Medication The History & Physical has been completed within 30 days and I have reviewed it.: Yes Section B Chief Complaint: calculus of gallbladder Allergies: Allergies Allergy/AdvReac Type Severity Reaction Status Date / Time ibuprofen [From MOTRIN] Allergy Unknown UPSET Verified 06/03/21 10:43 STOMACH Plan Diagnosis/Plan: Unchanged I have reviewed the history and physical and performed a pertinent physical examination on my patient. No changes have occurred unless specified.
--- NOTE | 2021-06-03 11:40 | P.OP_ITS ---
Operative Note Operative Note Date of Service: 06/03/21 Narrative: Preoperative diagnosis: Acute cholecystitis, cholelithiasis Postoperative diagnosis: Acute and chronic cholecystitis, cholecystoenteric fistula Procedure: Laparoscopic cholecystectomy converted to open cholecystectomy, closure of cholecystoenteric fistula Surgeon: Chandu Bynum MD Marketing Trainee: EVELIO Benton Anesthesia: General endotracheal Indications for procedure: 75-year-old female presenting with complaints of abdominal pain in the right upper quadrant found to have thickened gallbladder wall with gallstones suggestive of acute cholecystitis due to cholelithiasis. She presents today for laparoscopic or possible open cholecystectomy. Operative findings: Dense adhesions of the liver to the anterior abdominal wall, dense adhesions to the gallbladder with marked scarring of the gallbladder to the distal stomach and duodenum. Patient was found to have a fistulous communication between the wall of the stomach and gallbladder. This was plicated using Surgilon sutures. Specimen: gallbladder Estimated blood loss: 50 mL Drains: Olivier-Hanson large 10 mm Complications: None Procedure details: Patient was brought to the OR and placed in a supine position. After administering general anesthesia the patient's abdomen was prepped with ChloraPrep and draped in a sterile fashion. Local anesthesia consisting of 0.5% Sensorcaine without epinephrine was infiltrated in a perium bilical region. A 5 mm incision was made above the umbilicus in a transverse fashion. The Veress needle was then inserted while elevating abdominal cavity with towel clips. After positive drop test the abdomen was insufflated to a pressure of 15 mm of mercury. The Veress needle was then removed and a 5 mm trocar inserted. The camera was inserted in the abdomen explored. A 12 mm trocar was then placed in the epigastrium and two 5 mm trocars placed in the right upper quadrant. The patient was placed in reverse Trendelenburg positioning and rotated to the left. The gallbladder could not initially be identified due to dense adhesions to the inferior surface of the gallbladder and liver. Blunt and sharp dissection was used to mobilize the adhesions of the liver to the anterior abdominal wall. Blunt and sharp dissection was then used to attempt to mobilize the stomach and duodenum off the gallbladder however the adhesions were found to be of the chronic nature and very hard. After a period of dissection was determined that further dissection would not be safe laparoscopically therefore patient was converted to an open cholecystectomy. A subcostal, Inder incision was then created using a 15 blade. This was done directly over the gallbladder. Incision was carried out through subcutaneous tissue past the anterior rectus sheath on through the rectus muscle and between fibers of the external and internal oblique muscles. The peritoneum was then entered in the abdomen explored. A bowel for retractor was placed. Gallbladder fundus was grasped with a Inder clamp and a combination of sharp and blunt dissection used to dissect the undersurface of the gallbladder. This was found to be extremely scarred and adherent to the stomach wall. As the dissection was continued from distal to proximal a fistula was identified between the gallbladder and the stomach. No gastric leakage in was identified upon mobilization of this fistula. Fistulous opening was reapproximated using imbricated 4-0 Surgilon sutures. This was later covered with omental fat. The gallbladder was then dissected off the liver edge. Was found to be very intrahepatic with chronic scarring. Electrocautery was used to dissect the scarred tissue off the liver bed. Dissection was continued towards the cystic duct. Cystic duct was identified and cystic artery was also identified. This was ligated using a hemoclip. The gallbladder was then clamped using a right angle clamp. The cystic duct was ligated using a 2-0 silk tie. This was then also clipped with a hemoclip. The gallbladder was removed and sent to pathology for further examination. The abdomen was then thoroughly irrigated and suctioned dry. No bleeding was noted from the liver bed and no bile leak could be identified from the cystic duct. A 10. Olivier-Hanson drain was then brought out through a separate stab and placed at the liver bed. This was secured to the skin using a 4-0 nylon suture. It was then connected to bulb suction. Peritoneum was then closed using a running 0 Polysorb suture. Posterior and anterior rectus sheath were then closed using a running 0 Polysorb suture. Darryl's fascia and dermis reapproximated using interrupted 3-0 Polysorb sutures. Skin was closed using skin urszula. Sterile dressings were then applied. The patient tolerated the procedure well. She was transferred to PACU in stable condition. Sponge, instrument, and needle counts reported as correct.
[2021-06-03] MEDS: fentaNYL citrate/PF 100 MCG/2 ML VIAL 25 MCG IVPUSH ×2 (14:48→14:55)
[2021-06-03] MEDS: fentaNYL citrate/PF 100 MCG/2 ML VIAL 50 MCG IVPUSH (15:03)
[2021-06-03] MEDS: HYDROmorphone HCl 0.5 MG/0.5 ML SYRINGE 0.25 MG IVPUSH ×2 (15:22→15:29)
--- NOTE | 2021-06-03 16:49 | PC.NURSE ---
Pt too lethargic postop to answer admission questions at this time
[2021-06-03 17:00] LABS: Glucose, Whole Blood 176 mg/dL (60-115)
[2021-06-03 17:03] LABS: COVID-19 Test Negative (Negative)
[2021-06-03] MEDS: Insulin Lispro 100 UNIT/ML 3 ML VIAL SUBCUT ×2 (17:07→20:58)
[2021-06-03] MEDS: Morphine Sulfate 2 MG/ML CARTRIDGE 4 MG IVPUSH (18:04)
--- NOTE | 2021-06-03 18:39 | PM.IMHP ---
History of Present Illness Date of Service: 06/03/21 75 year old with diabetes non insulin depedent, HLD controlled with statin, HTN that is is controlled with meds, GERD who as admitted to surgery as having throuchg cholecystecomty from acute and chronic cholecystitis--started as Lap Sonali and converted to open. She is complaining about lots of pain athe moment and seem some confusion likely related to anesthetic and poain meds. Review of Systems Review of Systems: Gen: no fever Resp: no sob, no cough CV: no chest, no RHOADES, no leg edema GI: +abdominal pain Neuro: No confusion [facility] Medical History (Updated 06/03/21 @ 18:52 by Blue Gutiérrez MD) Anxiety Asthma Depression Diabetes mellitus Diabetic neuropathy Dysphagia Fibromyalgia GERD (gastroesophageal reflux disease) Hiatal hernia HTN (hypertension) Hx of gastritis Hypercholesterolemia Hypothyroidism IBS (irritable bowel syndrome) Mini stroke Mononeuritis On beta jeannie at home Osteoarthritis Osteoporosis Vitamin B 12 deficiency Family History Sister Diabetes Pertinent family history: . Surgical History H/O local excision of skin lesion History of ankle surgery History of back surgery History of esophagogastroduodenoscopy (EGD) History of open reduction and internal fixation (ORIF) procedure Hx of hysterectomy Social History Household Members: Unknown / Unable to assess Housing: Unknown / Unable to assess Unable to assess alcohol history related to: Unknown Alcohol intake: never Patient Tobacco Use Status: Former Tobacco user Quit Date: >20 yr ago Use of substances other than those prescribed or required for medical reasons: Unknown Are you DNR?: No Advance Directives: No Advance Directives Information Provided: Yes Current occupational status: disabled 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 Diltiazem HCl (Diltiazem Hcl Cd 180 Mg Cap.Er.24h) 360 mg PO DAILY [facility]; Protocol Escitalopram Oxalate (Escitalopram Oxalate 10 Mg Tablet) 10 mg PO DAILY [facility] Glucose (Glucose Gel 15 Gm Gel..Gram.) 15 gm PO Q15M PRN; Protocol PRN Reason: per Hypoglycemia Standing Ord. Hydrochlorothiazide (Hydrochlorothiazide 12.5 Mg Tablet) 12.5 mg PO DAILY [facility]; Protocol Hydromorphone HCl (Hydromorphone Hcl 0.5 Mg/0.5 Ml Syringe) 0.25 mg IVPUSH Q5M PRN; Protocol PRN Reason: Pain, Severe (Pain Scale 7-10) Last Admin: 06/03/21 15:29 Dose: 0.25 mg Documented by: Lactated Ringer's (Lr) 1,000 mls @ 100 mls/hr IVCONT .Q10H [facility] Last Admin: 06/03/21 16:55 Dose: 100 mls/hr Documented by: Promethazine HCl 6.25 mg/ (Sodium Chloride) 50.25 mls @ 201 mls/hr IV ONCE PRN PRN Reason: Nausea and Vomiting Last Infusion: 06/03/21 16:51 Dose: Infused Documented by: Acetaminophen (Ofirmev) 1,000 mg in 100 mls @ 400 mls/hr IV Q6H PRN PRN Reason: Pain, Severe (Pain Scale 7-10) Insulin Human Lispro (Insulin Lispro 100 Unit/Ml 3 Ml Vial) 0 unit SUBCUT QIDACHS [facility]; Protocol Stop: 06/04/21 14:20 Last Admin: 06/03/21 17:07 Dose: 4 unit Documented by: Levothyroxine Sodium (Levothyroxine Sodium 100 Mcg Tablet) 100 mcg PO DAILY [facility] Lisinopril (Lisinopril 40 Mg Tablet) 40 mg PO DAILY [facility]; Protocol Metoprolol Succinate (Metoprolol Succinate Er 100 Mg Tab.Er.24h) 100 mg PO DAILY [facility]; Protocol Morphine Sulfate (Morphine Sulfate 2 Mg/Ml Cartridge) 4 mg IVPUSH Q3H PRN; Protocol PRN Reason: Pain, Severe (Pain Scale 7-10) Last Admin: 06/03/21 18:04 Dose: 4 mg Documented by: Nitroglycerin (Nitroglycerin 0.4 Mg Tab.Subl) 0.4 mg SUBLINGUAL Q5M PRN PRN Reason: Chest Pain Non-Formulary Medication (Nabumetone) 500 mg PO DAILY [facility] Omeprazole (Omeprazole 20 Mg Capsule.Dr) 20 mg PO BID@0630,1630 [facility] Ondansetron HCl (Ondansetron Hcl 4 Mg/2 Ml Vial) 4 mg IVPUSH Q8H PRN PRN Reason: Nausea and Vomiting Oxycodone HCl (Oxycodone Hcl Immed Release 5 Mg Tablet) 5 mg PO Q4H PRN PRN Reason: Pain, Moderate (Pain Scale 4-6 Pharmacy Consult (Consult Rx Perform Med Rec) 1 each MISCELLANE ONCE PRN PRN Reason: Consult order Pregabalin (Pregabalin 200 Mg Capsule) 200 mg PO DAILY [facility] Sodium Chloride (0.9 % Sodium Chloride Flush 3 Ml Syringe) 3 ml IVFLUSH QSHIFT [facility] Last Admin: 06/03/21 16:55 Dose: Not Given Documented by: Trazodone HCl (Trazodone Hcl 50 Mg Tablet) 50 mg PO BEDTIME [facility] Home Medications Medication Instructions Recorded Confirmed Last Taken Type aspirin 81 mg tablet,delayed 81 mg PO DAILY 05/23/20 05/28/21 09/18/20 05:00 History release atorvastatin 40 mg tablet 40 mg PO DAILY 05/23/20 05/28/21 Unknown History bisacodyl 5 mg tablet,delayed 5 mg PO DAILY 05/23/20 05/28/21 Unknown History release blood sugar diagnostic #10 ea 05/23/20 05/28/21 Unknown History chlorhexidine gluconate 0.12 % 5 - 10 ml PO BID 05/23/20 05/28/21 Unknown History mouthwash citalopram 20 mg tablet 20 mg PO DAILY 05/23/20 05/28/21 Unknown History clonazepam 0.5 mg tablet 0.5 mg PO BID PRN 05/23/20 05/28/21 Unknown History diclofenac sodium 1 % topical gel 1 ea TOPICAL DAILY 05/23/20 05/28/21 Unknown History diltiazem HCl 360 mg capsule,24 360 mg PO DAILY 05/23/20 05/28/21 06/03/21 07:30 History hr,extended release docusate sodium 100 mg capsule 100 mg PO BID 05/23/20 05/28/21 Unknown History folic acid 1 mg tablet 1 mg PO DAILY 05/23/20 05/28/21 Unknown History glipizide 10 mg tablet, extended 10 mg PO DAILY 05/23/20 05/28/21 Unknown History release 24 hr hydrochlorothiazide 12.5 mg capsule 12.5 mg PO DAILY 05/23/20 05/28/21 Unknown History lancets 28 gauge #100 ea 05/23/20 05/28/21 Unknown History levothyroxine 100 mcg tablet 100 mcg PO DAILY 05/23/20 05/28/21 06/03/21 07:30 History lisinopril 40 mg tablet 40 mg PO DAILY 05/23/20 05/28/21 Unknown History metformin 500 mg tablet,extended 1,000 mg PO BID 05/23/20 05/28/21 Unknown History release 24 hr metoprolol succinate 100 mg 100 mg PO DAILY 05/23/20 05/28/21 06/03/21 07:30 History tablet,extended release 24 hr nabumetone 500 mg tablet 500 mg PO DAILY 05/23/20 05/28/21 Unknown History nitroglycerin 0.4 mg sublingual 0.4 mg SUBLINGUAL NEEDED PRN 05/23/20 05/28/21 Unknown History tablet ondansetron HCl 4 mg tablet 4 mg PO Q6H PRN 05/23/20 05/28/21 Unknown History pregabalin 200 mg capsule 200 mg PO DAILY 05/23/20 05/28/21 Unknown History sitagliptin 100 mg tablet 100 mg PO DAILY 05/23/20 05/28/21 Unknown History trazodone 50 mg tablet 50 mg PO BEDTIME 05/23/20 05/28/21 Unknown History Physical Exam Vital Signs and Narrative: Vital Signs: Last Vital Signs Temp 97.4 F 06/03/21 16:00 Pulse 87 06/03/21 16:15 Resp 17 06/03/21 16:15 BP 133/78 06/03/21 16:15 Pulse Ox 100 06/03/21 16:15 Body Mass Index 34.3 Constitutional: Alert, in no distress, overweight. Mental Status: Oriented to person, place and time. Eyes: Pupils are equal, round and reactive to light. Ear, Nose and Throat: Oropharynx clear, mucous membranes moist. ETrachea midline. Respiratory: Clear to auscultation. No wheezing, rales or rhonchi. Cardiovascular: S1 S2 regular. No murmurs, rubs or gallops. Gastrointestinal: Abdomen soft, non-tender, non-distended. Normal bowel sounds.? Neurologic: Cranial nerves II-XII grossly intact. No focal neurological deficits. Moves all extremities spontaneously.? Skin: No rashes or lesions.? Musculoskeletal: No cyanosis or clubbing. Psychiatric: Normal mood and affect? Results Labs Labs: Laboratory Results - last 24 hr 06/03/21 06/03/21 06/03/21 11:03 16:40 16:51 POC Glucose 131 H 176 H COVID-19 ([facility]) Negative COVID-19 Clin Com See Note Assessment and Plan (1) HTN (hypertension): Status: Acute 75/with HTN, DM, hypothyroidism, HLD s/p cholecystectomy today 1/ Diabetes--SSI for now once, eating full meals can resume home meds 2/HTN--continue home meds HCTZ, Lisinopril 3/HLD--continue Lipitor 4/GERD--Omeprazol 5/Hypontyroidism--Levothyroxine 6/ post op management by surgery Quality Stroke Does the patient have a stroke diagnosis?: No VTE Prior VTE?: No VTE Risk Level:: Medical - moderate - high VTE Device Contraindication: N/A - Device Ordered VTE Drug Contraindication: N/A - Med Ordered
[2021-06-03] MEDS: clonazePAM 0.5 MG TABLET PO (20:17)
[2021-06-03] MEDS: oxyCODONE HCl Immed Release 5 MG TABLET PO (20:17)
[2021-06-03] MEDS: traZODone HCL 50 MG TABLET PO (20:17)
[2021-06-03 20:52] LABS: Glucose, Whole Blood 150 mg/dL (60-115)
[2021-06-04] MEDS: Morphine Sulfate 2 MG/ML CARTRIDGE 4 MG IVPUSH ×2 (00:12→08:06)
[2021-06-04] MEDS: Lactated Ringers 1,000 ML 100 ML IVCONT ×2 (02:40→12:57)
[2021-06-04 03:51] VITALS: BP 130/61; PULSE 90; RESP 17; TEMP 36.5; O2SAT 97
[2021-06-04 04:27] LABS: MANUAL DIFF FLAG NO
[2021-06-04 04:37] LABS: Basophils Percent Auto 0.2 % (0-2); Hematocrit 31.1 % (37-47); Hemoglobin 9.8 g/dl (12.0-16.0); Imm Gran Abs Auto 0.16 X10*3/uL (0.00-0.03); Imm Gran Pct Auto 0.7 % (0.0-0.4); Lymphocytes Absolute Auto 1.6 X10*3/uL (1.2-4.9); Lymphocytes Percent Auto 7.1 % (20-40); Mean Corpuscular HGB Conc 31.5 g/dl (31.0-35.0); Mean Corpuscular Hemoglobin 28.7 pg (27.0-33.0); Mean Corpuscular Volume 90.9 fL (80-98); Monocytes Absolute Auto 1.2 X10*3/uL (0.1-1.2); Monocytes Percent Auto 5.2 % (2-11); Neutrophils Absolute Auto 19.8 X10*3/uL (2.0-8.3); Neutrophils Percent Auto 86.8 % (45-73); Platelet Count 484 X10*3/uL (160-400); Red Blood Count 3.42 X10*6/uL (4.20-5.50); Red Cell Distribution Width 16.6 % (11.0-16.0); White Blood Count 22.9 X10*3/uL (4.8-10.8)
[2021-06-04 04:46] LABS: Anion Gap 16 (12-20); Blood Urea Nitrogen 11 mg/dL (9-16); Calcium 7.7 mg/dL (8.4-10.2); Carbon Dioxide 23 mmol/L (22-29); Chloride 105 mmol/L (96-108); Estimated Glomerular Filt Rate > 60; Glucose Random 183 mg/dL (60-115); Potassium 4.6 mmol/L (3.3-5.1); Sodium 139 mmol/L (135-145)
[2021-06-04 04:47] LABS: Alanine Aminotransferase 20 U/L (0-31); Albumin Level 3.1 g/dL (3.5-5.0); Alkaline Phosphatase 90 U/L (39-117); Aspartate Amino Transferase 45 U/L (5-31); Bilirubin Direct 0.2 mg/dL (0.0-0.5); Bilirubin Total 0.4 mg/dL (0.0-1.0); Total Protein 5.6 g/dL (6.5-8.0)
[2021-06-04] MEDS: oxyCODONE HCl Immed Release 5 MG TABLET PO (06:03)
[2021-06-04] MEDS: Omeprazole 20 MG CAPSULE.DR PO ×2 (06:03→16:35)
[2021-06-04 07:14] VITALS: BP 135/72; PULSE 93; RESP 18; TEMP 36.4; O2SAT 94
[2021-06-04] MEDS: lisinopriL 40 MG TABLET PO (07:34)
[2021-06-04] MEDS: Pregabalin 200 MG CAPSULE PO (07:35)
[2021-06-04] MEDS: Insulin Lispro 100 UNIT/ML 3 ML VIAL SUBCUT ×4 (07:36→20:12)
[2021-06-04 07:51] LABS: Glucose, Whole Blood 169 mg/dL (60-115)
[2021-06-04] MEDS: Metoprolol Succinate ER 100 MG TAB.ER.24H PO (08:06)
[2021-06-04] MEDS: Escitalopram Oxalate 10 MG TABLET PO (08:06)
[2021-06-04] MEDS: dilTIAZem HCL CD 180 MG CAP.ER.24H 360 MG PO (08:06)
[2021-06-04] MEDS: Levothyroxine Sodium 100 MCG TABLET PO (08:06)
[2021-06-04] MEDS: Atorvastatin Calcium 40 MG TABLET PO (08:06)
[2021-06-04] MEDS: hydroCHLOROthiazide 12.5 MG TABLET PO (08:06)
--- NOTE | 2021-06-04 08:08 | PM.PNGS ---
Subjective Subjective Date of Service: 06/04/21 <Lyn Young PA-C - Last Filed: 06/04/21 08:15> 06/04/21 <Chandu Bynum MD - Last Filed: 06/04/21 08:22> Interval history: Confused overnight per RN. Seems more orientated this morning. Reports pain at incision site. Tolerating diet but not much. <Lyn Young PA-C - Last Filed: 06/04/21 08:15> Physical Exam Vital Signs: Vital Signs: Last Vital Signs Temp 97.5 F 06/04/21 07:14 Pulse 93 06/04/21 07:14 Resp 18 06/04/21 07:14 BP 135/72 06/04/21 07:14 Pulse Ox 94 06/04/21 07:14 Body Mass Index 34.3 <Lyn Young PA-C - Last Filed: 06/04/21 08:15> Const: General: comfortable, no acute distress and alert <Lyn Young PA-C - Last Filed: 06/04/21 08:15> Orientation/consciousness: patient oriented x3 <Lyn Young PA-C - Last Filed: 06/04/21 08:15> Resp: Effort & Inspection: normal respiratory effort <Lyn Young PA-C - Last Filed: 06/04/21 08:15> Cardio: Rate: regular rate <Lyn Young PA-C - Last Filed: 06/04/21 08:15> GI: Other: MAYI drain with serosanguineous drainage <Lyn Young PA-C - Last Filed: 06/04/21 08:15> Inspection: No distended and Yes incision (dressings c/d/i) <PEG Benton Last Filed: 06/04/21 08:15> Palpation (GI): Soft to palpation, Tenderness to palpation present (GI) (incisional), no guarding and not rigid <PEG Benton Last Filed: 06/04/21 08:15> Skin: Other: warm and dry <Lyn Young PA-C - Last Filed: 06/04/21 08:15> General skin exam: no rashes or lesions noted <Lyn Young PA-C - Last Filed: 06/04/21 08:15> Neuro: General: patient oriented x3 <PEG Benton Last Filed: 06/04/21 08:15> Extrem: General: Yes no clubbing, cyanosis or edema <Lyn Young PA-C - Last Filed: 06/04/21 08:15> Procedures Date of Service Date of Service: 06/04/21 <Lyn Young PA-C - Last Filed: 06/04/21 08:15> Progress Note: A&P Assessment and plan (1) Cholecystitis, acute with cholelithiasis: Status: Acute <PEG Benton Last Filed: 06/04/21 08:15> (2) S/P cholecystectomy: Status: Acute <PEG Benton Last Filed: 06/04/21 08:15> Assessment and Plan: 75 year old female admitted for observation following laparoscopic converted to open cholecystectomy. She is doing fairly well post op. VSS. Abd exam benign with appropriate post op tenderness. Dressings c/d/i. MAYI drain with serosanguineous output, keep in place. Continue pain control. Encouraged OOB/ambulation and IS use. Marked leukocytosis this morning, likely reactive. Will repeat tomorrow am. Hospitalists following. <Lyn Young PA-C - Last Filed: 06/04/21 08:15> 75 year old female admitted for observation following laparoscopic converted to open cholecystectomy. She is doing fairly well post op. VSS. Abd exam benign with appropriate post op tenderness. Dressings c/d/i. MAYI drain with serosanguineous output, keep in place. Continue pain control. Encouraged OOB/ambulation and IS use. Marked leukocytosis this morning, likely reactive. Will repeat tomorrow am. Hospitalists following. I discussed the operative findings in detail with the patient today with the help of a biomedical field service engineer. Patient's main concern is her abdominal pain. She is tolerating breakfast without nausea or vomiting. Wounds are clean and intact without redness or discharge. Olivier-Hanson is producing serosanguineous output with no evidence of bile. Agree with the above assessment and plan. <Chandu Bynum MD - Last Filed: 06/04/21 08:22> Fall Risk Details Current Medications: Current Medications Atorvastatin Calcium (Atorvastatin Calcium 40 Mg Tablet) 40 mg PO DAILY [facility] Clonazepam (Clonazepam 0.5 Mg Tablet) 0.5 mg PO BID PRN PRN Reason: Anxiety Last Admin: 06/03/21 20:17 Dose: 0.5 mg Documented by: Dextrose (Dextrose 50 % 25 Gm/50 Ml Vial) 25 gm IVPUSH Q15M PRN; Protocol PRN Reason: per Hypoglycemia Standing Ord. Diltiazem HCl (Diltiazem Hcl Cd 180 Mg Cap.Er.24h) 360 mg PO DAILY [facility]; Protocol Escitalopram Oxalate (Escitalopram Oxalate 10 Mg Tablet) 10 mg PO DAILY [facility] Glucose (Glucose Gel 15 Gm Gel..Gram.) 15 gm PO Q15M PRN; Protocol PRN Reason: per Hypoglycemia Standing Ord. Hydrochlorothiazide (Hydrochlorothiazide 12.5 Mg Tablet) 12.5 mg PO DAILY [facility]; Protocol Hydromorphone HCl (Hydromorphone Hcl 0.5 Mg/0.5 Ml Syringe) 0.25 mg IVPUSH Q5M PRN; Protocol PRN Reason: Pain, Severe (Pain Scale 7-10) Last Admin: 06/03/21 15:29 Dose: 0.25 mg Documented by: Lactated Ringer's (Lr) 1,000 mls @ 100 mls/hr IVCONT .Q10H [facility] Last Admin: 06/04/21 07:08 Dose: Not Given Documented by: Promethazine HCl 6.25 mg/ (Sodium Chloride) 50.25 mls @ 201 mls/hr IV ONCE PRN PRN Reason: Nausea and Vomiting Last Infusion: 06/03/21 16:51 Dose: Infused Documented by: Acetaminophen (Ofirmev) 1,000 mg in 100 mls @ 400 mls/hr IV Q6H PRN PRN Reason: Pain, Severe (Pain Scale 7-10) Insulin Human Lispro (Insulin Lispro 100 Unit/Ml 3 Ml Vial) 0 unit SUBCUT QIDACHS [facility]; Protocol Stop: 06/04/21 14:20 Last Admin: 06/04/21 07:36 Dose: 4 unit Documented by: Levothyroxine Sodium (Levothyroxine Sodium 100 Mcg Tablet) 100 mcg PO DAILY [facility] Lisinopril (Lisinopril 40 Mg Tablet) 40 mg PO DAILY [facility]; Protocol Last Admin: 06/04/21 07:34 Dose: 40 mg Documented by: Metoprolol Succinate (Metoprolol Succinate Er 100 Mg Tab.Er.24h) 100 mg PO DAILY [facility]; Protocol Morphine Sulfate (Morphine Sulfate 2 Mg/Ml Cartridge) 4 mg IVPUSH Q3H PRN; Protocol PRN Reason: Pain, Severe (Pain Scale 7-10) Last Admin: 06/04/21 00:12 Dose: 4 mg Documented by: Nitroglycerin (Nitroglycerin 0.4 Mg Tab.Subl) 0.4 mg SUBLINGUAL Q5M PRN PRN Reason: Chest Pain Omeprazole (Omeprazole 20 Mg Capsule.Dr) 20 mg PO BID@0630,1630 [facility] Last Admin: 06/04/21 06:03 Dose: 20 mg Documented by: Ondansetron HCl (Ondansetron Hcl 4 Mg/2 Ml Vial) 4 mg IVPUSH Q8H PRN PRN Reason: Nausea and Vomiting Oxycodone HCl (Oxycodone Hcl Immed Release 5 Mg Tablet) 5 mg PO Q4H PRN PRN Reason: Pain, Moderate (Pain Scale 4-6 Last Admin: 06/04/21 06:03 Dose: 5 mg Documented by: Pharmacy Consult (Consult Rx Perform Med Rec) 1 each MISCELLANE ONCE PRN PRN Reason: Consult order Pregabalin (Pregabalin 200 Mg Capsule) 200 mg PO DAILY [facility] Last Admin: 06/04/21 07:35 Dose: 200 mg Documented by: Sodium Chloride (0.9 % Sodium Chloride Flush 3 Ml Syringe) 3 ml IVFLUSH QSHIFT [facility] Last Admin: 06/04/21 07:09 Dose: Not Given Documented by: Trazodone HCl (Trazodone Hcl 50 Mg Tablet) 50 mg PO BEDTIME [facility] Last Admin: 06/03/21 20:17 Dose: 50 mg Documented by: <Lyn Young PA-C - Last Filed: 06/04/21 08:15> Time Spent With Patient Time: Total time spent is greater than 50% in coordination of care (as documented) at patient's floor/unit and/or counseling patient: <Lyn Young PA-C - Last Filed: 06/04/21 08:15> Time with patient: 15 - 24 minutes <Lyn Young PA-C - Last Filed: 06/04/21 08:15> Quality Stroke Does the patient have a stroke diagnosis?: No <Lyn Young PA-C - Last Filed: 06/04/21 08:15> VTE Prior VTE?: No <Lyn Young PA-C - Last Filed: 06/04/21 08:15> VTE Risk Level:: Medical - moderate - high <Lyn Young PA-C - Last Filed: 06/04/21 08:15> VTE Device Contraindication: N/A - Device Ordered <Lyn Young PA-C - Last Filed: 06/04/21 08:15> VTE Drug Contraindication: N/A - Med Ordered <Lyn Young PA-C - Last Filed: 06/04/21 08:15>
--- NOTE | 2021-06-04 08:11 | HO.POSTANES ---
Post Anesthesia Evaluation Post Anesthesia Evaluation Vital Signs: Vital Signs Temp Pulse Resp BP Pulse Ox 06/04/21 07:14 97.5 F 93 18 135/72 94 06/04/21 03:51 97.7 F 90 17 130/61 97 06/03/21 23:55 98.6 F 87 17 164/91 H 95 06/03/21 21:00 97 164/92 H Anesthesia: General Endotracheal-GETA Mental Status: Awake Pain Control: Satisfactory Nausea/Vomiting: None Hydration: Adequate Anesthesia-Related Issues: No Anes. Related Issues Comments: was converted to open
--- NOTE | 2021-06-04 10:04 | HO.PM.IMPN ---
Subjective Subjective Date of Service: 06/04/21 Interval History: Seen in follow-up for medical evaluation postop. Patient is complaining about lots of pain Review of Systems no fever, no chest pain, no sob, + abdominal pain Physical Exam Vital Signs: Vital Signs: Last Vital Signs Temp 97.5 F 06/04/21 07:14 Pulse 93 06/04/21 07:14 Resp 18 06/04/21 07:14 BP 135/72 06/04/21 07:14 Pulse Ox 94 06/04/21 07:14 Body Mass Index 34.3 General: AO X 3, no acute distress Resp: CTA bilateral CVS: S1,S2,RRR GI: +BS, non-specific tenderness, no guarading, no rebound Skin: No rash Neuro: motor grossly intact Psych: appropriate affect Objective Data Active Medications Atorvastatin Calcium (Atorvastatin Calcium 40 Mg Tablet) 40 mg PO DAILY [facility] Last Admin: 06/04/21 08:06 Dose: 40 mg Documented by: KAILEY Clonazepam (Clonazepam 0.5 Mg Tablet) 0.5 mg PO BID PRN PRN Reason: Anxiety Last Admin: 06/03/21 20:17 Dose: 0.5 mg Documented by: AMBROSIO Dextrose (Dextrose 50 % 25 Gm/50 Ml Vial) 25 gm IVPUSH Q15M PRN; Protocol PRN Reason: per Hypoglycemia Standing Ord. Diltiazem HCl (Diltiazem Hcl Cd 180 Mg Cap.Er.24h) 360 mg PO DAILY [facility]; Protocol Last Admin: 06/04/21 08:06 Dose: 360 mg Documented by: KAILEY Escitalopram Oxalate (Escitalopram Oxalate 10 Mg Tablet) 10 mg PO DAILY [facility] Last Admin: 06/04/21 08:06 Dose: 10 mg Documented by: KAILEY Glucose (Glucose Gel 15 Gm Gel..Gram.) 15 gm PO Q15M PRN; Protocol PRN Reason: per Hypoglycemia Standing Ord. Hydrochlorothiazide (Hydrochlorothiazide 12.5 Mg Tablet) 12.5 mg PO DAILY [facility]; Protocol Last Admin: 06/04/21 08:06 Dose: 12.5 mg Documented by: KAILEY Hydromorphone HCl (Hydromorphone Hcl 0.5 Mg/0.5 Ml Syringe) 0.25 mg IVPUSH Q5M PRN; Protocol PRN Reason: Pain, Severe (Pain Scale 7-10) Last Admin: 06/03/21 15:29 Dose: 0.25 mg Documented by: CLEMENTINA Lactated Ringer's (Lr) 1,000 mls @ 100 mls/hr IVCONT .Q10H [facility] Last Admin: 06/04/21 07:08 Dose: Not Given Documented by: KAILEY Non-Admin Reason: IV Running Promethazine HCl 6.25 mg/ (Sodium Chloride) 50.25 mls @ 201 mls/hr IV ONCE PRN PRN Reason: Nausea and Vomiting Last Infusion: 06/03/21 16:51 Dose: 0 mls/hr Documented by: KAILEY Acetaminophen (Ofirmev) 1,000 mg in 100 mls @ 400 mls/hr IV Q6H PRN PRN Reason: Pain, Severe (Pain Scale 7-10) Insulin Human Lispro (Insulin Lispro 100 Unit/Ml 3 Ml Vial) 0 unit SUBCUT QIDACHS [facility]; Protocol Stop: 06/04/21 14:20 Last Admin: 06/04/21 07:36 Dose: 4 unit Documented by: KAILEY Levothyroxine Sodium (Levothyroxine Sodium 100 Mcg Tablet) 100 mcg PO DAILY [facility] Last Admin: 06/04/21 08:06 Dose: 100 mcg Documented by: KAILEY Lisinopril (Lisinopril 40 Mg Tablet) 40 mg PO DAILY [facility]; Protocol Last Admin: 06/04/21 07:34 Dose: 40 mg Documented by: KAILEY Metoprolol Succinate (Metoprolol Succinate Er 100 Mg Tab.Er.24h) 100 mg PO DAILY [facility]; Protocol Last Admin: 06/04/21 08:06 Dose: 100 mg Documented by: KAILEY Morphine Sulfate (Morphine Sulfate 2 Mg/Ml Cartridge) 4 mg IVPUSH Q3H PRN; Protocol PRN Reason: Pain, Severe (Pain Scale 7-10) Last Admin: 06/04/21 08:06 Dose: 4 mg Documented by: KAILEY Nitroglycerin (Nitroglycerin 0.4 Mg Tab.Subl) 0.4 mg SUBLINGUAL Q5M PRN PRN Reason: Chest Pain Omeprazole (Omeprazole 20 Mg Capsule.Dr) 20 mg PO BID@0630,1630 [facility] Last Admin: 06/04/21 06:03 Dose: 20 mg Documented by: AMBROSIO Ondansetron HCl (Ondansetron Hcl 4 Mg/2 Ml Vial) 4 mg IVPUSH Q8H PRN PRN Reason: Nausea and Vomiting Oxycodone HCl (Oxycodone Hcl Immed Release 5 Mg Tablet) 5 mg PO Q4H PRN PRN Reason: Pain, Moderate (Pain Scale 4-6 Last Admin: 06/04/21 06:03 Dose: 5 mg Documented by: AMBROSIO Pharmacy Consult (Consult Rx Perform Med Rec) 1 each MISCELLANE ONCE PRN PRN Reason: Consult order Pregabalin (Pregabalin 200 Mg Capsule) 200 mg PO DAILY [facility] Last Admin: 06/04/21 07:35 Dose: 200 mg Documented by: KAILEY Sodium Chloride (0.9 % Sodium Chloride Flush 3 Ml Syringe) 3 ml IVFLUSH QSHIFT [facility] Last Admin: 06/04/21 07:09 Dose: Not Given Documented by: KAILEY Non-Admin Reason: IV Running Trazodone HCl (Trazodone Hcl 50 Mg Tablet) 50 mg PO BEDTIME [facility] Last Admin: 06/03/21 20:17 Dose: 50 mg Documented by: AMBROSIO Labs CBC & Chem 7: 06/04/21 04:07 06/04/21 04:07 Labs: Laboratory Results - last 24 hr 06/03/21 06/03/21 06/03/21 11:03 16:40 16:51 MCV MCH MCHC RDW Plt Count MPV Immature Gran % (Auto) Neut % (Auto) Lymph % (Auto) [place] % (Auto) Eos % (Auto) Baso % (Auto) Lymph # (Auto) [place] # (Auto) Eos # (Auto) Baso # (Auto) Abs Immat Gran (auto) Absolute Neuts (auto) Absolute Nucleated RBC Nucleated RBC % (auto) Anion Gap Estim Creat Clear Calc Estimated GFR POC Glucose 131 H 176 H Random Glucose Calcium Total Bilirubin Direct Bilirubin AST ALT Alkaline Phosphatase Total Protein Albumin COVID-19 (MOHSEN) Negative COVID-19 Clin Com See Note 06/03/21 06/04/21 06/04/21 20:25 04:07 04:07 MCV 90.9 MCH 28.7 MCHC 31.5 RDW 16.6 H Plt Count 484 H MPV 10.0 Immature Gran % (Auto) 0.7 H Neut % (Auto) 86.8 H Lymph % (Auto) 7.1 L [place] % (Auto) 5.2 Eos % (Auto) 0.0 Baso % (Auto) 0.2 Lymph # (Auto) 1.6 [place] # (Auto) 1.2 Eos # (Auto) 0.0 Baso # (Auto) 0.0 Abs Immat Gran (auto) 0.16 H Absolute Neuts (auto) 19.8 H Absolute Nucleated RBC 0.000 Nucleated RBC % (auto) 0.0 Anion Gap 16 Estim Creat Clear Calc 53.0 Estimated GFR > 60 POC Glucose 150 H Random Glucose 183 H Calcium 7.7 L D Total Bilirubin Direct Bilirubin AST ALT Alkaline Phosphatase Total Protein Albumin COVID-19 (MOHSEN) COVID-19 [facility] Com 06/04/21 06/04/21 04:07 07:11 MCV MCH MCHC RDW Plt Count MPV Immature Gran % (Auto) Neut % (Auto) Lymph % (Auto) [place] % (Auto) Eos % (Auto) Baso % (Auto) Lymph # (Auto) [place] # (Auto) Eos # (Auto) Baso # (Auto) Abs Immat Gran (auto) Absolute Neuts (auto) Absolute Nucleated RBC Nucleated RBC % (auto) Anion Gap Estim Creat Clear Calc Estimated GFR POC Glucose 169 H Random Glucose Calcium Total Bilirubin 0.4 Direct Bilirubin 0.2 AST 45 H D ALT 20 Alkaline Phosphatase 90 Total Protein 5.6 L Albumin 3.1 L COVID-19 (MOHSEN) COVID-19 Clin Com Assessment and Plan (1) HTN (hypertension): Status: Acute (2) Diabetes mellitus: Status: Acute (3) Hypercholesterolemia: Status: Acute Assessment and Plan: 75/with HTN, DM, hypothyroidism, HLD s/p cholecystectomy today 1/ Diabetes--SSI for now once, eating full meals can restart glipizide 2/HTN--continue home meds HCTZ, Lisinopril, cardizem and metoprolol. BP is contorlle 3/HLD--continue Lipitor 4/GERD--Omeprazol 5/Hypontyroidism--Levothyroxine 6/ post op management by surgery 7/Elevated WBC, likely reactive, no fever, If develop fever we shoudl consider Abx or reimage Quality Stroke Does the patient have a stroke diagnosis?: No VTE Prior VTE?: No VTE Risk Level:: Medical - moderate - high VTE Device Contraindication: N/A - Device Ordered VTE Drug Contraindication: N/A - Med Ordered
--- NOTE | 2021-06-04 10:32 | PC.NURSE ---
Skin assessment completed today. Patient has a surgical incision to abdomen, urszula intact dressing C/D/I, no staining. Also has a MAYI drain present. Scattered bruising on BUE. No other skin issues noted at this time.
[2021-06-04 11:25] VITALS: BP 94/57; PULSE 83; RESP 18; TEMP 37.3; O2SAT 93
[2021-06-04 11:41] LABS: Glucose, Whole Blood 192 mg/dL (60-115)
--- NOTE | 2021-06-04 11:59 | MHC.CM.PN ---
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 PATIENT RELIES ON A CANE AND WALKER. HCP IS ON FILE AND VERIFIED, ALTHOUGH SRINATH'S NUMBER IS INCORRECT. YLOANDE AMARO WILL BE IN LATER AND CASE MANAGEMENT CAN GET THE CORRECT CONTACT INFO. SON ASKS FOR A REFERRAL TO [facility], NOW PLACED. IMM 06/04 IN CHART.
[2021-06-04 15:38] VITALS: BP 133/57; PULSE 85; RESP 16; TEMP 37; O2SAT 92
[2021-06-04 16:47] LABS: Glucose, Whole Blood 215 mg/dL (60-115)
[2021-06-04 19:30] VITALS: BP 105/57; PULSE 83; RESP 15; TEMP 36.3; O2SAT 96
[2021-06-04] MEDS: traZODone HCL 50 MG TABLET PO (20:12)
[2021-06-04 20:24] LABS: Glucose, Whole Blood 191 mg/dL (60-115)
[2021-06-04 23:16] VITALS: BP 129/59; PULSE 85; RESP 18; TEMP 37.1; O2SAT 96
[2021-06-05] VITALS (10 sets, daily range): BP systolic 90–136; BP diastolic 51–70; PULSE 74–85; RESP 15–18; TEMP 36.3–37.4; O2SAT 93–97
[2021-06-05] MEDS: Lactated Ringers 1,000 ML 100 ML IVCONT ×3 (00:17→20:32)
[2021-06-05 05:30] LABS: Basophils Percent Auto 0.2 % (0-2); Eosinophils Percent Auto 0.2 % (0-4); Hematocrit 26.1 % (37-47); Hemoglobin 8.2 g/dl (12.0-16.0); Imm Gran Abs Auto 0.15 X10*3/uL (0.00-0.03); Imm Gran Pct Auto 0.8 % (0.0-0.4); Lymphocytes Absolute Auto 2.6 X10*3/uL (1.2-4.9); Lymphocytes Percent Auto 14.2 % (20-40); MANUAL DIFF FLAG SCAN; Mean Corpuscular HGB Conc 31.4 g/dl (31.0-35.0); Mean Corpuscular Hemoglobin 28.9 pg (27.0-33.0); Mean Corpuscular Volume 91.9 fL (80-98); Monocytes Absolute Auto 1.7 X10*3/uL (0.1-1.2); Monocytes Percent Auto 9.3 % (2-11); Neutrophils Absolute Auto 13.7 X10*3/uL (2.0-8.3); Neutrophils Percent Auto 75.3 % (45-73); Platelet Count 414 X10*3/uL (160-400); Red Blood Count 2.84 X10*6/uL (4.20-5.50); Red Cell Distribution Width 16.9 % (11.0-16.0); SCAN SMEAR FLAG 1; White Blood Count 18.2 X10*3/uL (4.8-10.8)
[2021-06-05 05:53] LABS: SLIDE REVIEW VERIFIED
[2021-06-05] MEDS: Omeprazole 20 MG CAPSULE.DR PO ×2 (05:54→16:38)
[2021-06-05 07:46] LABS: Glucose, Whole Blood 181 mg/dL (60-115)
--- NOTE | 2021-06-05 07:55 | P.PNGS_ITS ---
Subjective Subjective Date of Service: 06/05/21 <Lyn Young PA-C - Last Filed: 06/05/21 08:01> 06/05/21 <Chandu Bynum MD - Last Filed: 06/05/21 12:50> Interval history: Feeling a little better this morning. Main complaint is abdominal pain and feeling weak. Does not feel like she will be able to do the 3 flights of stairs at home. Tolerating solid diet, some nausea. No flatus or BM. <Lyn Young PA-C - Last Filed: 06/05/21 08:01> Physical Exam Vital Signs: Vital Signs: Last Vital Signs Temp 99.3 F 06/05/21 07:37 Pulse 85 06/05/21 07:37 Resp 18 06/05/21 07:37 BP 136/67 06/05/21 07:37 Pulse Ox 95 06/05/21 07:37 Body Mass Index 34.3 <Lyn Young PA-C - Last Filed: 06/05/21 08:01> Const: General: comfortable, no acute distress and alert <Lyn Young PA-C - Last Filed: 06/05/21 08:01> Orientation/consciousness: patient oriented x3 <PEG Benton Last Filed: 06/05/21 08:01> Eyes: Sclerae: sclerae normal <Lyn Young PA-C - Last Filed: 06/05/21 08:01> Resp: Effort & Inspection: normal respiratory effort <Lyn Young PA-C - Last Filed: 06/05/21 08:01> GI: Other: MAYI with serosanguineous drainage <PEG Benton Last Filed: 06/05/21 08:01> Inspection: No distended and Yes incision (clean) <PEG Benton Last Filed: 06/05/21 08:01> Palpation (GI): Soft to palpation, Tenderness to palpation present (GI) (mild, incisional), no guarding and not rigid <PEG Benton Last Filed: 06/05/21 08:01> Skin: Other: warm and dry <Lyn HannahDONELL ganClive Willard Last Filed: 06/05/21 08:01> General skin exam: no rashes or lesions noted <Lyn HannahPEG gan Montse Last Filed: 06/05/21 08:01> Neuro: General: patient oriented x3 <DONELL BentonClive Willard Last Filed: 06/05/21 08:01> Procedures Date of Service Date of Service: 06/05/21 <DONELL BentonClive Willard Last Filed: 06/05/21 08:01> Progress Note: A&P Assessment and plan (1) S/P cholecystectomy: Status: Acute <Lyn Young PA-C Montse Last Filed: 06/05/21 08:01> (2) Diabetes mellitus: Status: Acute <DONELL BentonClive Willard Last Filed: 06/05/21 08:01> (3) Cholecystitis, acute with cholelithiasis: Status: Acute <DONELL BentonClive Willard Last Filed: 06/05/21 08:01> Assessment and Plan: 75 year old female admitted for observation following laparoscopic converted to open cholecystectomy. Continues to do fairly well post op. VSS. Abd exam remains benign- incision clean, appropriate post op tenderness. MAYI drain with serosanguineous output, nonbilious, will keep in place for now- remove prior to d/c. Continue pain control.? Encouraged OOB/ambulation and IS use. Will consult PT for evaluation, dispo planning. May benefit from STR stay. WBC downtrending, cont to monitor. Will add colace for bowel regimen. Anticipate discharge over the weekend if continues to do well. <Lyn Young PA-C Montse Last Filed: 06/05/21 08:01> 75 year old female admitted for observation following laparoscopic converted to open cholecystectomy. Continues to do fairly well post op. VSS. Abd exam remains benign- incision clean, appropriate post op tenderness. MAYI drain with serosanguineous output, nonbilious, will keep in place for now- remove prior to d/c. Continue pain control.? Encouraged OOB/ambulation and IS use. Will consult PT for evaluation, dispo planning. May benefit from STR stay. WBC downtrending, cont to monitor. Will add colace for bowel regimen. Anticipate discharge over the weekend if continues to do well. Patient independently interviewed and examined and I concur with the above findings. Patient continues to have incisional pain and is reluctant to ambulate. Agree with physical therapy evaluation. She is willing to consider short-term rehabilitation upon discharge. <Chandu Bynum MD - Last Filed: 06/05/21 12:50> Fall Risk Details Current Medications: Current Medications Atorvastatin Calcium (Atorvastatin Calcium 40 Mg Tablet) 40 mg PO DAILY [facility] Last Admin: 06/04/21 08:06 Dose: 40 mg Documented by: Clonazepam (Clonazepam 0.5 Mg Tablet) 0.5 mg PO BID PRN PRN Reason: Anxiety Last Admin: 06/03/21 20:17 Dose: 0.5 mg Documented by: Dextrose (Dextrose 50 % 25 Gm/50 Ml Vial) 25 gm IVPUSH Q15M PRN; Protocol PRN Reason: per Hypoglycemia Standing Ord. Diltiazem HCl (Diltiazem Hcl Cd 180 Mg Cap.Er.24h) 360 mg PO DAILY [facility]; Protocol Last Admin: 06/04/21 08:06 Dose: 360 mg Documented by: Escitalopram Oxalate (Escitalopram Oxalate 10 Mg Tablet) 10 mg PO DAILY [facility] Last Admin: 06/04/21 08:06 Dose: 10 mg Documented by: Glucose (Glucose Gel 15 Gm Gel..Gram.) 15 gm PO Q15M PRN; Protocol PRN Reason: per Hypoglycemia Standing Ord. Hydrochlorothiazide (Hydrochlorothiazide 12.5 Mg Tablet) 12.5 mg PO DAILY [facility]; Protocol Last Admin: 06/04/21 08:06 Dose: 12.5 mg Documented by: Hydromorphone HCl (Hydromorphone Hcl 0.5 Mg/0.5 Ml Syringe) 0.25 mg IVPUSH Q5M PRN; Protocol PRN Reason: Pain, Severe (Pain Scale 7-10) Last Admin: 06/03/21 15:29 Dose: 0.25 mg Documented by: Lactated Ringer's (Lr) 1,000 mls @ 100 mls/hr IVCONT .Q10H [facility] Last Admin: 06/05/21 00:17 Dose: 100 mls/hr Documented by: Promethazine HCl 6.25 mg/ (Sodium Chloride) 50.25 mls @ 201 mls/hr IV ONCE PRN PRN Reason: Nausea and Vomiting Last Infusion: 06/03/21 16:51 Dose: Infused Documented by: Acetaminophen (Ofirmev) 1,000 mg in 100 mls @ 400 mls/hr IV Q6H PRN PRN Reason: Pain, Severe (Pain Scale 7-10) Insulin Human Lispro (Insulin Lispro 100 Unit/Ml 3 Ml Vial) 0 unit SUBCUT QIDACHS [facility]; Protocol Last Admin: 06/04/21 20:12 Dose: 2 unit Documented by: Levothyroxine Sodium (Levothyroxine Sodium 100 Mcg Tablet) 100 mcg PO DAILY [facility] Last Admin: 06/04/21 08:06 Dose: 100 mcg Documented by: Lisinopril (Lisinopril 40 Mg Tablet) 40 mg PO DAILY [facility]; Protocol Last Admin: 06/04/21 07:34 Dose: 40 mg Documented by: Metoprolol Succinate (Metoprolol Succinate Er 100 Mg Tab.Er.24h) 100 mg PO DAILY [facility]; Protocol Last Admin: 06/04/21 08:06 Dose: 100 mg Documented by: Morphine Sulfate (Morphine Sulfate 2 Mg/Ml Cartridge) 4 mg IVPUSH Q3H PRN; Protocol PRN Reason: Pain, Severe (Pain Scale 7-10) Last Admin: 06/04/21 08:06 Dose: 4 mg Documented by: Nitroglycerin (Nitroglycerin 0.4 Mg Tab.Subl) 0.4 mg SUBLINGUAL Q5M PRN PRN Reason: Chest Pain Omeprazole (Omeprazole 20 Mg Capsule.Dr) 20 mg PO BID@0630,1630 [facility] Last Admin: 06/05/21 05:54 Dose: 20 mg Documented by: Ondansetron HCl (Ondansetron Hcl 4 Mg/2 Ml Vial) 4 mg IVPUSH Q8H PRN PRN Reason: Nausea and Vomiting Oxycodone HCl (Oxycodone Hcl Immed Release 5 Mg Tablet) 5 mg PO Q4H PRN PRN Reason: Pain, Moderate (Pain Scale 4-6 Last Admin: 06/04/21 06:03 Dose: 5 mg Documented by: Oxycodone HCl (Oxycodone Hcl Immed Release 5 Mg Tablet) 10 mg PO Q4H PRN PRN Reason: Pain, Severe (Pain Scale 7-10) Pharmacy Consult (Consult Rx Perform Med Rec) 1 each MISCELLANE ONCE PRN PRN Reason: Consult order Pregabalin (Pregabalin 200 Mg Capsule) 200 mg PO DAILY [facility] Last Admin: 06/04/21 07:35 Dose: 200 mg Documented by: Sodium Chloride (0.9 % Sodium Chloride Flush 3 Ml Syringe) 3 ml IVFLUSH QSHIFT [facility] Last Admin: 06/05/21 00:18 Dose: Not Given Documented by: Trazodone HCl (Trazodone Hcl 50 Mg Tablet) 50 mg PO BEDTIME [facility] Last Admin: 06/04/21 20:12 Dose: 50 mg Documented by: <Lyn Young PA-C - Last Filed: 06/05/21 08:01> Time Spent With Patient Time: Total time spent is greater than 50% in coordination of care (as documented) at patient's floor/unit and/or counseling patient: <Lyn Young PA-C - Last Filed: 06/05/21 08:01> Time with patient: 15 - 24 minutes <Lyn Young PA-C - Last Filed: 06/05/21 08:01> Quality Stroke Does the patient have a stroke diagnosis?: No <Lyn Young PA-C - Last Filed: 06/05/21 08:01> VTE Prior VTE?: No <Lyn Young PA-C - Last Filed: 06/05/21 08:01> VTE Risk Level:: Medical - moderate - high <PEG Benton Last Filed: 06/05/21 08:01> VTE Device Contraindication: N/A - Device Ordered <PEG Benton Last Filed: 06/05/21 08:01> VTE Drug Contraindication: N/A - Med Ordered <Lyn Young PA-C - Last Filed: 06/05/21 08:01>
[2021-06-05] MEDS: Insulin Lispro 100 UNIT/ML 3 ML VIAL SUBCUT ×4 (08:11→21:39)
[2021-06-05] MEDS: hydroCHLOROthiazide 12.5 MG TABLET PO (08:12)
[2021-06-05] MEDS: Docusate Sodium 100 MG CAPSULE PO ×2 (08:12→20:33)
[2021-06-05] MEDS: Escitalopram Oxalate 10 MG TABLET PO (08:12)
[2021-06-05] MEDS: Morphine Sulfate 2 MG/ML CARTRIDGE 4 MG IVPUSH (08:12)
[2021-06-05] MEDS: Pregabalin 200 MG CAPSULE PO (08:12)
[2021-06-05] MEDS: 0.9 % Sodium Chloride Flush 3 ML SYRINGE IVFLUSH (08:12)
[2021-06-05] MEDS: dilTIAZem HCL CD 180 MG CAP.ER.24H 360 MG PO (08:13)
[2021-06-05] MEDS: Levothyroxine Sodium 100 MCG TABLET PO (08:13)
[2021-06-05] MEDS: Atorvastatin Calcium 40 MG TABLET PO (08:13)
[2021-06-05] MEDS: lisinopriL 40 MG TABLET PO (08:13)
[2021-06-05] MEDS: Metoprolol Succinate ER 100 MG TAB.ER.24H PO (08:13)
--- NOTE | 2021-06-05 08:38 | HO.PM.IMPN ---
Subjective Subjective Date of Service: 06/05/21 Interval History: Seen in follow-up for medical evaluation, still complaining about lots of pain Review of Systems no fever abd pain Physical Exam Vital Signs: Vital Signs: Last Vital Signs Temp 99.3 F 06/05/21 07:37 Pulse 85 06/05/21 08:13 Resp 18 06/05/21 07:37 BP 136/67 06/05/21 08:13 Pulse Ox 95 06/05/21 07:37 Body Mass Index 34.3 General: AO X 3, no acute distress Resp: CTA bilateral CVS: S1,S2,RRR GI: +BS, non specific tenderness, sugar in place Skin: No rash Neuro: motor grossly intact Psych: appropriate affect Objective Data Active Medications Atorvastatin Calcium (Atorvastatin Calcium 40 Mg Tablet) 40 mg PO DAILY [facility] Last Admin: 06/05/21 08:13 Dose: 40 mg Documented by: HALLE Clonazepam (Clonazepam 0.5 Mg Tablet) 0.5 mg PO BID PRN PRN Reason: Anxiety Last Admin: 06/03/21 20:17 Dose: 0.5 mg Documented by: AMBROSIO Dextrose (Dextrose 50 % 25 Gm/50 Ml Vial) 25 gm IVPUSH Q15M PRN; Protocol PRN Reason: per Hypoglycemia Standing Ord. Diltiazem HCl (Diltiazem Hcl Cd 180 Mg Cap.Er.24h) 360 mg PO DAILY [facility]; Protocol Last Admin: 06/05/21 08:13 Dose: 360 mg Documented by: HALLE Docusate Sodium (Docusate Sodium 100 Mg Capsule) 100 mg PO BID [facility] Last Admin: 06/05/21 08:12 Dose: 100 mg Documented by: HALLE Escitalopram Oxalate (Escitalopram Oxalate 10 Mg Tablet) 10 mg PO DAILY [facility] Last Admin: 06/05/21 08:12 Dose: 10 mg Documented by: HALLE Glucose (Glucose Gel 15 Gm Gel..Gram.) 15 gm PO Q15M PRN; Protocol PRN Reason: per Hypoglycemia Standing Ord. Hydrochlorothiazide (Hydrochlorothiazide 12.5 Mg Tablet) 12.5 mg PO DAILY [facility]; Protocol Last Admin: 06/05/21 08:12 Dose: 12.5 mg Documented by: HALLE Hydromorphone HCl (Hydromorphone Hcl 0.5 Mg/0.5 Ml Syringe) 0.25 mg IVPUSH Q5M PRN; Protocol PRN Reason: Pain, Severe (Pain Scale 7-10) Last Admin: 06/03/21 15:29 Dose: 0.25 mg Documented by: CLEMENTINA Lactated Ringer's (Lr) 1,000 mls @ 100 mls/hr IVCONT .Q10H [facility] Last Admin: 06/05/21 00:17 Dose: 100 mls/hr Documented by: SAV Promethazine HCl 6.25 mg/ (Sodium Chloride) 50.25 mls @ 201 mls/hr IV ONCE PRN PRN Reason: Nausea and Vomiting Last Infusion: 06/03/21 16:51 Dose: 0 mls/hr Documented by: KAILEY Acetaminophen (Ofirmev) 1,000 mg in 100 mls @ 400 mls/hr IV Q6H PRN PRN Reason: Pain, Severe (Pain Scale 7-10) Insulin Human Lispro (Insulin Lispro 100 Unit/Ml 3 Ml Vial) 0 unit SUBCUT QIDACHS [facility]; Protocol Last Admin: 06/05/21 08:11 Dose: 2 unit Documented by: HALLE Levothyroxine Sodium (Levothyroxine Sodium 100 Mcg Tablet) 100 mcg PO DAILY [facility] Last Admin: 06/05/21 08:13 Dose: 100 mcg Documented by: HALLE Lisinopril (Lisinopril 40 Mg Tablet) 40 mg PO DAILY [facility]; Protocol Last Admin: 06/05/21 08:13 Dose: 40 mg Documented by: HALLE Metoprolol Succinate (Metoprolol Succinate Er 100 Mg Tab.Er.24h) 100 mg PO DAILY [facility]; Protocol Last Admin: 06/05/21 08:13 Dose: 100 mg Documented by: HALLE Morphine Sulfate (Morphine Sulfate 2 Mg/Ml Cartridge) 4 mg IVPUSH Q3H PRN; Protocol PRN Reason: Pain, Severe (Pain Scale 7-10) Last Admin: 06/05/21 08:12 Dose: 4 mg Documented by: HALLE Nitroglycerin (Nitroglycerin 0.4 Mg Tab.Subl) 0.4 mg SUBLINGUAL Q5M PRN PRN Reason: Chest Pain Omeprazole (Omeprazole 20 Mg Capsule.Dr) 20 mg PO BID@0630,1630 [facility] Last Admin: 06/05/21 05:54 Dose: 20 mg Documented by: SAV Ondansetron HCl (Ondansetron Hcl 4 Mg/2 Ml Vial) 4 mg IVPUSH Q8H PRN PRN Reason: Nausea and Vomiting Oxycodone HCl (Oxycodone Hcl Immed Release 5 Mg Tablet) 5 mg PO Q4H PRN PRN Reason: Pain, Moderate (Pain Scale 4-6 Last Admin: 06/04/21 06:03 Dose: 5 mg Documented by: AMBROSIO Oxycodone HCl (Oxycodone Hcl Immed Release 5 Mg Tablet) 10 mg PO Q4H PRN PRN Reason: Pain, Severe (Pain Scale 7-10) Pharmacy Consult (Consult Rx Perform Med Rec) 1 each MISCELLANE ONCE PRN PRN Reason: Consult order Pregabalin (Pregabalin 200 Mg Capsule) 200 mg PO DAILY [facility] Last Admin: 06/05/21 08:12 Dose: 200 mg Documented by: HALLE Sodium Chloride (0.9 % Sodium Chloride Flush 3 Ml Syringe) 3 ml IVFLUSH QSHIFT [facility] Last Admin: 06/05/21 08:12 Dose: 3 ml Documented by: HALLE Trazodone HCl (Trazodone Hcl 50 Mg Tablet) 50 mg PO BEDTIME [facility] Last Admin: 06/04/21 20:12 Dose: 50 mg Documented by: SAV Labs CBC & Chem 7: 06/05/21 05:19 06/04/21 04:07 Labs: Laboratory Results - last 24 hr 06/04/21 06/04/21 06/04/21 11:23 16:38 20:08 MCV MCH MCHC RDW Plt Count MPV Immature Gran % (Auto) Neut % (Auto) Lymph % (Auto) [place] % (Auto) Eos % (Auto) Baso % (Auto) Lymph # (Auto) [place] # (Auto) Eos # (Auto) Baso # (Auto) Abs Immat Gran (auto) Absolute Neuts (auto) Absolute Nucleated RBC Nucleated RBC % (auto) Smear Tech's Comments POC Glucose 192 H 215 H 191 H 06/05/21 06/05/21 05:19 07:23 MCV 91.9 MCH 28.9 MCHC 31.4 RDW 16.9 H Plt Count 414 H MPV 10.0 Immature Gran % (Auto) 0.8 H Neut % (Auto) 75.3 H Lymph % (Auto) 14.2 L [place] % (Auto) 9.3 Eos % (Auto) 0.2 Baso % (Auto) 0.2 Lymph # (Auto) 2.6 [place] # (Auto) 1.7 H Eos # (Auto) 0.0 Baso # (Auto) 0.0 Abs Immat Gran (auto) 0.15 H Absolute Neuts (auto) 13.7 H Absolute Nucleated RBC 0.000 Nucleated RBC % (auto) 0.0 Smear Tech's Comments VERIFIED POC Glucose 181 H Assessment and Plan (1) HTN (hypertension): Status: Acute (2) Diabetes mellitus: Status: Acute (3) Hypercholesterolemia: Status: Acute Assessment and Plan: 75/with HTN, DM, hypothyroidism, HLD s/p cholecystectomy today 1/ Diabetes, FBS 181, SSI for now , once eating full meals can restart glipizide 2/HTN--continue home meds HCTZ, Lisinopril, cardizem and metoprolol. BP is normal 3/HLD--continue Lipitor 4/GERD--Omeprazole 5/Hypontyroidism--Levothyroxine 6/ post op management by surgery 7/Elevated WBC, likely reactive, no fever, If develop fever we shoudl consider Abx or reimage, it is better today Quality Stroke Does the patient have a stroke diagnosis?: No VTE Prior VTE?: No VTE Risk Level:: Medical - moderate - high VTE Device Contraindication: N/A - Device Ordered VTE Drug Contraindication: N/A - Med Ordered
[2021-06-05] MEDS: oxyCODONE HCl Immed Release 5 MG TABLET 10 MG PO (09:41)
[2021-06-05] MEDS: clonazePAM 0.5 MG TABLET PO (09:42)
[2021-06-05 11:32] LABS: Glucose, Whole Blood 280 mg/dL (60-115)
--- NOTE | 2021-06-05 13:46 | P.DS_ITS ---
DS: Providers Provider Date of Service: 06/07/21 Date of admission: 06/03/21 13:34 Primary care physician: Roberto Carlos Sanford MD Attending physician on admission: Chandu Bynum Consults: 06/03/21 16:23 Consult to Hospitalist Routine Consulting Provider: Hospitalist Reason For Exam: s/p open cholecystectomy, Diabetes, HTN med manage Attending physician on discharge: Gina Plaza DS: Diagnosis Discharge Diagnosis (1) S/P cholecystectomy: Status: Acute (2) Diabetes mellitus: Status: Acute (3) Cholecystitis, acute with cholelithiasis: Status: Acute DS: Summary Hospital Course Hospital Course: BRIEF HPI: 75-year-old female presenting with complaints of abdominal pain in the right upper quadrant found to have thickened gallbladder wall with gallstones suggestive of acute cholecystitis due to cholelithiasis.? She presents today for laparoscopic or possible open cholecystectomy. HOSPITAL COURSE: On 06/03/21, a laparoscopic attempted converted to open cholecystectomy, closure of cholecystoenteric fistula was performed by Dr. Bynum without complication. There were dense adhesions of the liver to the anterior abdominal wall and dense adhesions to the gallbladder with marked scarring of the gallbladder to the distal stomach and duodenum necessitating opening. 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 The patient tolerated the procedure well, completed routine recovery in PACU and was admitted to the medical/surgical floor for observation. The patient had a slow but uncomplicated recovery course. A hospitalist consult was obtained for her medical comorbidities. On POD #1, she was doing fairly well but had difficulty with pain control. She was tolerating solids but didn't have much of an appetite. She was ambulated with a lot of assistance. She had a leukocytosis of 22.9 which was thought to be reactive and this was trended. She remained afebrile. It began to downtrend and continued to improve throughout her stay. The patient remained inpatient over the next couple of days for pain control which gradually improved. Her home medications were resumed. She became comfortable on PO analgesics. Her appetite improved. She however felt weak overall and did not feel comfortable returning to home with her stairs. PT consult was requested who recommended discharge to [facility]. On the day of discharge, she was tolerating a solid diet without n/v, her pain was well controlled, she was clinically well with a benign abdominal exam with appropriate post op tenderness. Her MAYI continued with nonbilious, serous output and was removed. She was transferred to [facility] on 06/07/21 in stable condition. Status at Discharge Functional status at discharge: uses cane/walker Overall status at discharge: patient is progressing back to baseline Time Spent with Patient Time attestation: Total time spent providing and/or coordinating discharge services: Discharge coordination time: Greater than 30 minutes Quality: Stroke Does the patient have a stroke diagnosis?: No Physical Exam Vital Signs: Vital Signs: Last Vital Signs Temp 98.7 F 06/05/21 12:00 Pulse 80 06/05/21 12:00 Resp 16 06/05/21 12:00 BP 96/54 L 06/05/21 12:00 Pulse Ox 93 06/05/21 12:00 Body Mass Index 34.3 DS: Data Data Completed and Pending Completed studies during hospitalization [Text1]: 06/03/21 13:53 Surgical [PTH] Routine Gallbladder, cholecystectomy:? Marked acute and chronic cholecystitis with focal mucosal necrosis. Labs on day of discharge: Laboratory Results - last 24 hr 06/04/21 06/04/21 06/05/21 16:38 20:08 05:19 WBC 18.2 H RBC 2.84 L Hgb 8.2 L Hct 26.1 L MCV 91.9 MCH 28.9 MCHC 31.4 RDW 16.9 H Plt Count 414 H MPV 10.0 Immature Gran % (Auto) 0.8 H Neut % (Auto) 75.3 H Lymph % (Auto) 14.2 L [place] % (Auto) 9.3 Eos % (Auto) 0.2 Baso % (Auto) 0.2 Lymph # (Auto) 2.6 [place] # (Auto) 1.7 H Eos # (Auto) 0.0 Baso # (Auto) 0.0 Abs Immat Gran (auto) 0.15 H Absolute Neuts (auto) 13.7 H Absolute Nucleated RBC 0.000 Nucleated RBC % (auto) 0.0 Smear Tech's Comments VERIFIED POC Glucose 215 H 191 H 06/05/21 06/05/21 07:23 11:27 WBC RBC Hgb Hct MCV MCH MCHC RDW Plt Count MPV Immature Gran % (Auto) Neut % (Auto) Lymph % (Auto) [place] % (Auto) Eos % (Auto) Baso % (Auto) Lymph # (Auto) [place] # (Auto) Eos # (Auto) Baso # (Auto) Abs Immat Gran (auto) Absolute Neuts (auto) Absolute Nucleated RBC Nucleated RBC % (auto) Smear Tech's Comments POC Glucose 181 H 280 H Discharge Plan Discharge Anticipated Discharge Date/Time: 06/07/21 13:06 Patient Disposition: Xfer SNF Discharge Diagnosis: s/p open cholecystectomy Referrals: [facility] [Outside] - 1 Week Roberto Carlos Sanford MD [Primary Care Provider] - 1 Week Chandu Bynum MD [Physician] - 1 Week Discharge Medications: Continued tramadol 50 mg tablet 50 mg PO BID PRN (Reason: Pain) Qty: 60 RF: 5 omeprazole 20 mg capsule,delayed release(DR/EC) 20 mg PO BID 14 Days Qty: 28 RF: 0 sitagliptin 100 mg tablet 100 mg PO DAILY RF: 0 nabumetone 500 mg tablet 500 mg PO DAILY RF: 0 pregabalin 200 mg capsule 200 mg PO DAILY RF: 0 metformin 500 mg tablet extended release 24 hr 1,000 mg PO BID RF: 0 lisinopril 40 mg tablet 40 mg PO DAILY RF: 0 hydrochlorothiazide 12.5 mg capsule 12.5 mg PO DAILY RF: 0 citalopram 20 mg tablet 20 mg PO DAILY RF: 0 aspirin 81 mg tablet,delayed release (DR/EC) 81 mg PO DAILY RF: 0 diltiazem HCl 360 mg capsule,extended release 24 hr 360 mg PO DAILY RF: 0 glipizide 10 mg tablet extended release 24hr 10 mg PO DAILY RF: 0 metoprolol succinate 100 mg tablet extended release 24 hr 100 mg PO DAILY RF: 0 atorvastatin 40 mg tablet 40 mg PO DAILY RF: 0 trazodone 50 mg tablet 50 mg PO BEDTIME RF: 0 clonazepam 0.5 mg tablet 0.5 mg PO BID PRN (Reason: Anxiety) RF: 0 docusate sodium 100 mg capsule 100 mg PO BID RF: 0 levothyroxine 100 mcg tablet 100 mcg PO DAILY RF: 0 (DME) lancets 28 gauge misc See Rx Instructions ea topical .MEDSUPPLY Qty: 100 RF: 0 (DME) blood sugar diagnostic Strip See Rx Instructions ea Not Applicable .MEDSUPPLY Qty: 10 RF: 0 bisacodyl 5 mg tablet,delayed release (DR/EC) 5 mg PO DAILY RF: 0 diclofenac sodium 1 % gel 1 ea topical DAILY RF: 0 nitroglycerin 0.4 mg tablet, sublingual 0.4 mg sublingual NEEDED PRN (Reason: Chest Pain) RF: 0 ondansetron HCl 4 mg tablet 4 mg PO Q6H PRN (Reason: nausea/vomiting) RF: 0 chlorhexidine gluconate 0.12 % mouthwash 5 - 10 ml PO BID RF: 0 folic acid 1 mg tablet 1 mg PO DAILY RF: 0 Discharge Orders: Discharge Order (Routine); Ordered 06/07/21 Ordered By: Gina Plaza Diet: diabetic diet and low fat, low cholesterol Activity on Discharge: No heavy lifting Stand Alone Forms: Patient Portal Discharge page Activity Restrictions/Additional Instructions: If the incision area is tender, you may apply an ice pack for short intervals (No more than 20 minutes on, followed by at least 20 minutes off). Do not apply heat. Do not use creams, lotions, or topical antibiotics unless instructed to do so by your surgeon. These can cause infection or allergic reaction. Ok to shower. You have urszula closing your incision and these will be removed approximately 10-14 days after surgery. NO HEAVY LIFTING (>10lbs). Follow up in office with Dr. Bynum in 1 week. ([phone]) Call Your Doctor If: -Your temperature exceeds 101.5? F -You experience excessive pain or swelling -You have an unexpected reaction to medication -You have excessive bleeding -You experience continued vomiting/nausea -Your incision begins to separate -Your incision shows signs of infection such as increased redness, swelling, excessive pain, drainage (light blood or clear fluid is normal) or heat Care Plan Goals: Return to baseline health and gradual return to activity following recovery period. Health Concerns: Diabetes mellitus, HTN, s/p open cholecystectomy Plan of Treatment: Discharge to [facility] for strenghtening, f/u in office in 1 week. Assessment: Improved Discharge Date/Time: 06/07/21 16:45
[2021-06-05 16:27] LABS: Glucose, Whole Blood 320 mg/dL (60-115)
[2021-06-05 20:01] LABS: Glucose, Whole Blood 238 mg/dL (60-115)
[2021-06-05] MEDS: traZODone HCL 50 MG TABLET PO (20:33)
[2021-06-06] VITALS (9 sets, daily range): BP systolic 107–162; BP diastolic 57–77; PULSE 73–85; RESP 16–19; TEMP 36.1–36.5; O2SAT 90–96
[2021-06-06] MEDS: Morphine Sulfate 2 MG/ML CARTRIDGE 4 MG IVPUSH (05:47)
[2021-06-06] MEDS: Lactated Ringers 1,000 ML 100 ML IVCONT ×2 (05:49→16:38)
[2021-06-06] MEDS: Omeprazole 20 MG CAPSULE.DR PO ×2 (05:50→16:38)
[2021-06-06 06:11] LABS: MANUAL DIFF FLAG NO
[2021-06-06 06:14] LABS: Basophils Absolute Auto 0.1 X10*3/uL (0.0-0.2); Basophils Percent Auto 0.3 % (0-2); Eosinophils Absolute Auto 0.3 X10*3/uL (0.0-0.4); Eosinophils Percent Auto 1.6 % (0-4); Hemoglobin 8.7 g/dl (12.0-16.0); Imm Gran Abs Auto 0.22 X10*3/uL (0.00-0.03); Imm Gran Pct Auto 1.3 % (0.0-0.4); Lymphocytes Absolute Auto 2.5 X10*3/uL (1.2-4.9); Mean Corpuscular HGB Conc 31.1 g/dl (31.0-35.0); Mean Corpuscular Hemoglobin 28.2 pg (27.0-33.0); Mean Corpuscular Volume 90.9 fL (80-98); Monocytes Absolute Auto 1.4 X10*3/uL (0.1-1.2); Monocytes Percent Auto 8.7 % (2-11); Neutrophils Absolute Auto 12.1 X10*3/uL (2.0-8.3); Neutrophils Percent Auto 73.1 % (45-73); Platelet Count 454 X10*3/uL (160-400); Red Blood Count 3.08 X10*6/uL (4.20-5.50); Red Cell Distribution Width 16.5 % (11.0-16.0); White Blood Count 16.5 X10*3/uL (4.8-10.8)
[2021-06-06 07:37] LABS: Glucose, Whole Blood 220 mg/dL (60-115)
[2021-06-06] MEDS: Insulin Lispro 100 UNIT/ML 3 ML VIAL SUBCUT ×4 (08:04→22:39)
[2021-06-06] MEDS: dilTIAZem HCL CD 180 MG CAP.ER.24H 360 MG PO (08:04)
[2021-06-06] MEDS: Pregabalin 200 MG CAPSULE PO (08:04)
[2021-06-06] MEDS: Levothyroxine Sodium 100 MCG TABLET PO (08:05)
[2021-06-06] MEDS: Metoprolol Succinate ER 100 MG TAB.ER.24H PO (08:05)
[2021-06-06] MEDS: Atorvastatin Calcium 40 MG TABLET PO (08:05)
[2021-06-06] MEDS: lisinopriL 40 MG TABLET PO (08:05)
[2021-06-06] MEDS: Docusate Sodium 100 MG CAPSULE PO ×2 (08:05→22:41)
[2021-06-06] MEDS: hydroCHLOROthiazide 12.5 MG TABLET PO (08:05)
[2021-06-06] MEDS: Escitalopram Oxalate 10 MG TABLET PO (08:05)
[2021-06-06] MEDS: oxyCODONE HCl Immed Release 5 MG TABLET 10 MG PO (08:06)
--- NOTE | 2021-06-06 08:54 | P.PNIM_ITS ---
Subjective Subjective Date of Service: 06/08/21 Interval History: Seen in follow-up for medical evaluation, still complaining about lots of pain 05/24 but looks very comfortable and eaiting regular food Review of Systems abd pain chest pain pain in feet no feve Physical Exam Vital Signs: Vital Signs: Last Vital Signs Temp 97.6 F 06/06/21 07:55 Pulse 85 06/06/21 08:05 Resp 18 06/06/21 07:55 BP 162/77 H 06/06/21 08:05 Pulse Ox 96 06/06/21 07:55 Body Mass Index 34.3 Const: Other: General: AO X 3, no acute distress Resp: CTA bilateral CVS: S1,S2,RRR GI: +BS, Non specific tenderness Skin: No rash Neuro: motor grossly intact Psych: appropriate affect Objective Data Active Medications Atorvastatin Calcium (Atorvastatin Calcium 40 Mg Tablet) 40 mg PO DAILY [facility] Last Admin: 06/06/21 08:05 Dose: 40 mg Documented by: HALLE Clonazepam (Clonazepam 0.5 Mg Tablet) 0.5 mg PO BID PRN PRN Reason: Anxiety Last Admin: 06/05/21 09:42 Dose: 0.5 mg Documented by: HOLLY Dextrose (Dextrose 50 % 25 Gm/50 Ml Vial) 25 gm IVPUSH Q15M PRN; Protocol PRN Reason: per Hypoglycemia Standing Ord. Diltiazem HCl (Diltiazem Hcl Cd 180 Mg Cap.Er.24h) 360 mg PO DAILY [facility]; Pro tocol Last Admin: 06/06/21 08:04 Dose: 360 mg Documented by: HALLE Docusate Sodium (Docusate Sodium 100 Mg Capsule) 100 mg PO BID [facility] Last Admin: 06/06/21 08:05 Dose: 100 mg Documented by: HALLE Escitalopram Oxalate (Escitalopram Oxalate 10 Mg Tablet) 10 mg PO DAILY [facility] Last Admin: 06/06/21 08:05 Dose: 10 mg Documented by: HALLE Glucose (Glucose Gel 15 Gm Gel..Gram.) 15 gm PO Q15M PRN; Protocol PRN Reason: per Hypoglycemia Standing Ord. Hydrochlorothiazide (Hydrochlorothiazide 12.5 Mg Tablet) 12.5 mg PO DAILY [facility]; Protocol Last Admin: 06/06/21 08:05 Dose: 12.5 mg Documented by: HALLE Hydromorphone HCl (Hydromorphone Hcl 0.5 Mg/0.5 Ml Syringe) 0.25 mg IVPUSH Q5M PRN; Protocol PRN Reason: Pain, Severe (Pain Scale 7-10) Last Admin: 06/03/21 15:29 Dose: 0.25 mg Documented by: CLEMENTINA Lactated Ringer's (Lr) 1,000 mls @ 100 mls/hr IVCONT .Q10H [facility] Last Admin: 06/06/21 05:49 Dose: 100 mls/hr Documented by: KHUSHI Promethazine HCl 6.25 mg/ (Sodium Chloride) 50.25 mls @ 201 mls/hr IV ONCE PRN PRN Reason: Nausea and Vomiting Last Infusion: 06/03/21 16:51 Dose: 0 mls/hr Documented by: KAILEY Acetaminophen (Ofirmev) 1,000 mg in 100 mls @ 400 mls/hr IV Q6H PRN PRN Reason: Pain, Severe (Pain Scale 7-10) Insulin Human Lispro (Insulin Lispro 100 Unit/Ml 3 Ml Vial) 0 unit SUBCUT QIDACHS [facility]; Protocol Last Admin: 06/06/21 08:04 Dose: 4 unit Documented by: HALLE Levothyroxine Sodium (Levothyroxine Sodium 100 Mcg Tablet) 100 mcg PO DAILY [facility] Last Admin: 06/06/21 08:05 Dose: 100 mcg Documented by: HALLE Lisinopril (Lisinopril 40 Mg Tablet) 40 mg PO DAILY [facility]; Protocol Last Admin: 06/06/21 08:05 Dose: 40 mg Documented by: HALLE Metoprolol Succinate (Metoprolol Succinate Er 100 Mg Tab.Er.24h) 100 mg PO DAILY [facility]; Protocol Last Admin: 06/06/21 08:05 Dose: 100 mg Documented by: HALLE Morphine Sulfate (Morphine Sulfate 2 Mg/Ml Cartridge) 4 mg IVPUSH Q3H PRN; Protocol PRN Reason: Pain, Severe (Pain Scale 7-10) Last Admin: 06/06/21 05:47 Dose: 4 mg Documented by: KHUSHI Nitroglycerin (Nitroglycerin 0.4 Mg Tab.Subl) 0.4 mg SUBLINGUAL Q5M PRN PRN Reason: Chest Pain Omeprazole (Omeprazole 20 Mg Capsule.) 20 mg PO BID@0630,1630 [facility] Last Admin: 06/06/21 05:50 Dose: 20 mg Documented by: KHUSHI Ondansetron HCl (Ondansetron Hcl 4 Mg/2 Ml Vial) 4 mg IVPUSH Q8H PRN PRN Reason: Nausea and Vomiting Oxycodone HCl (Oxycodone Hcl Immed Release 5 Mg Tablet) 5 mg PO Q4H PRN PRN Reason: Pain, Moderate (Pain Scale 4-6 Last Admin: 06/04/21 06:03 Dose: 5 mg Documented by: AMBROSIO Oxycodone HCl (Oxycodone Hcl Immed Release 5 Mg Tablet) 10 mg PO Q4H PRN PRN Reason: Pain, Severe (Pain Scale 7-10) Last Admin: 06/06/21 08:06 Dose: 10 mg Documented by: HALLE Pharmacy Consult (Consult Rx Perform Med Rec) 1 each MISCELLANE ONCE PRN PRN Reason: Consult order Pregabalin (Pregabalin 200 Mg Capsule) 200 mg PO DAILY [facility] Last Admin: 06/06/21 08:04 Dose: 200 mg Documented by: HALLE Sodium Chloride (0.9 % Sodium Chloride Flush 3 Ml Syringe) 3 ml IVFLUSH QSHIFT [facility] Last Admin: 06/06/21 08:35 Dose: Not Given Documented by: HALLE Non-Admin Reason: IV Running Trazodone HCl (Trazodone Hcl 50 Mg Tablet) 50 mg PO BEDTIME [facility] Last Admin: 06/05/21 20:33 Dose: 50 mg Documented by: KHUSHI Labs CBC & Chem 7: 06/06/21 05:59 06/04/21 04:07 Labs: Laboratory Results - last 24 hr 06/05/21 06/05/21 06/05/21 11:27 16:18 19:55 MCV MCH MCHC RDW Plt Count MPV Immature Gran % (Auto) Neut % (Auto) Lymph % (Auto) [place] % (Auto) Eos % (Auto) Baso % (Auto) Lymph # (Auto) [place] # (Auto) Eos # (Auto) Baso # (Auto) Abs Immat Gran (auto) Absolute Neuts (auto) Absolute Nucleated RBC Nucleated RBC % (auto) POC Glucose 280 H 320 H 238 H 06/06/21 06/06/21 05:59 07:27 MCV 90.9 MCH 28.2 MCHC 31.1 RDW 16.5 H Plt Count 454 H MPV 10.0 Immature Gran % (Auto) 1.3 H Neut % (Auto) 73.1 H Lymph % (Auto) 15.0 L [place] % (Auto) 8.7 Eos % (Auto) 1.6 Baso % (Auto) 0.3 Lymph # (Auto) 2.5 [place] # (Auto) 1.4 H Eos # (Auto) 0.3 Baso # (Auto) 0.1 Abs Immat Gran (auto) 0.22 H Absolute Neuts (auto) 12.1 H Absolute Nucleated RBC 0.000 Nucleated RBC % (auto) 0.0 POC Glucose 220 H Assessment and Plan (1) HTN (hypertension): Status: Acute (2) Diabetes mellitus: Status: Acute (3) Hypercholesterolemia: Status: Acute Assessment and Plan: 75/with HTN, DM, hypothyroidism, HLD s/p elective cholecystectomy on 06/03 #Diabetes, FBS 220, SSI for now , since eating regular meal can restart glipizide #HTN--continue home meds HCTZ, Lisinopril, cardizem and metoprolol. BP is normal #HLD--continue Lipitor #GERD--Omeprazole #Hypontyroidism--Levothyroxine #post op management by surgery #Elevated WBC, likely reactive, no fever, If develop fever we shoudl consider Abx or reimage, it is better today Quality Stroke Does the patient have a stroke diagnosis?: No VTE Prior VTE?: No VTE Risk Level:: Medical - moderate - high VTE Device Contraindication: N/A - Device Ordered VTE Drug Contraindication: N/A - Med Ordered
[2021-06-06] MEDS: glipiZIDE 5 MG TABLET PO (09:45)
[2021-06-06 11:47] LABS: Glucose, Whole Blood 276 mg/dL (60-115)
--- NOTE | 2021-06-06 12:01 | PM.PNGS ---
Subjective Subjective Date of Service: 06/06/21 Patient reports: no new complaints Physical Exam Vital Signs: Vital Signs: Last Vital Signs Temp 97.7 F 06/06/21 11:28 Pulse 75 06/06/21 11:28 Resp 16 06/06/21 11:28 BP 107/66 06/06/21 11:28 Pulse Ox 90 L 06/06/21 11:28 Body Mass Index 34.3 GI: Other: abdomen soft nontender inciscion healing nicely sugar with little serous fluid Procedures Date of Service Date of Service: 06/06/21 Progress Note: A&P Assessment and plan (1) S/P cholecystectomy: Status: Acute Assessment and Plan: 75 year old female s/p lap to open kumar doing wel re operation - probably approaching her baseine weak status but PT recommends short term rehab and trying to get her a place for tuesday. here we paulino cont to advance diet, po pain meds and try tylenol instead of opiods as so fatigued and tired. PT to work with her to increase her function but it seems her baseline is very limited anyway. Fall Risk Details Current Medications: Current Medications Atorvastatin Calcium (Atorvastatin Calcium 40 Mg Tablet) 40 mg PO DAILY [facility] Last Admin: 06/06/21 08:05 Dose: 40 mg Documented by: Clonazepam (Clonazepam 0.5 Mg Tablet) 0.5 mg PO BID PRN PRN Reason: Anxiety Last Admin: 06/05/21 09:42 Dose: 0.5 mg Documented by: Dextrose (Dextrose 50 % 25 Gm/50 Ml Vial) 25 gm IVPUSH Q15M PRN; Protocol PRN Reason: per Hypoglycemia Standing Ord. Diltiazem HCl (Diltiazem Hcl Cd 180 Mg Cap.Er.24h) 360 mg PO DAILY [facility]; Protocol Last Admin: 06/06/21 08:04 Dose: 360 mg Documented by: Docusate Sodium (Docusate Sodium 100 Mg Capsule) 100 mg PO BID [facility] Last Admin: 06/06/21 08:05 Dose: 100 mg Documented by: Escitalopram Oxalate (Escitalopram Oxalate 10 Mg Tablet) 10 mg PO DAILY [facility] Last Admin: 06/06/21 08:05 Dose: 10 mg Documented by: Glipizide (Glipizide 5 Mg Tablet) 5 mg PO DAILY [facility] Last Admin: 06/06/21 09:45 Dose: 5 mg Documented by: Glucose (Glucose Gel 15 Gm Gel..Gram.) 15 gm PO Q15M PRN; Protocol PRN Reason: per Hypoglycemia Standing Ord. Hydrochlorothiazide (Hydrochlorothiazide 12.5 Mg Tablet) 12.5 mg PO DAILY [facility]; Protocol Last Admin: 06/06/21 08:05 Dose: 12.5 mg Documented by: Hydromorphone HCl (Hydromorphone Hcl 0.5 Mg/0.5 Ml Syringe) 0.25 mg IVPUSH Q5M PRN; Protocol PRN Reason: Pain, Severe (Pain Scale 7-10) Last Admin: 06/03/21 15:29 Dose: 0.25 mg Documented by: Lactated Ringer's (Lr) 1,000 mls @ 100 mls/hr IVCONT .Q10H [facility] Last Admin: 06/06/21 05:49 Dose: 100 mls/hr Documented by: Promethazine HCl 6.25 mg/ (Sodium Chloride) 50.25 mls @ 201 mls/hr IV ONCE PRN PRN Reason: Nausea and Vomiting Last Infusion: 06/03/21 16:51 Dose: Infused Documented by: Insulin Human Lispro (Insulin Lispro 100 Unit/Ml 3 Ml Vial) 0 unit SUBCUT QIDACHS [facility]; Protocol Last Admin: 06/06/21 11:59 Dose: 6 unit Documented by: Levothyroxine Sodium (Levothyroxine Sodium 100 Mcg Tablet) 100 mcg PO DAILY [facility] Last Admin: 06/06/21 08:05 Dose: 100 mcg Documented by: Lisinopril (Lisinopril 40 Mg Tablet) 40 mg PO DAILY [facility]; Protocol Last Admin: 06/06/21 08:05 Dose: 40 mg Documented by: Metoprolol Succinate (Metoprolol Succinate Er 100 Mg Tab.Er.24h) 100 mg PO DAILY [facility]; Protocol Last Admin: 06/06/21 08:05 Dose: 100 mg Documented by: Morphine Sulfate (Morphine Sulfate 2 Mg/Ml Cartridge) 4 mg IVPUSH Q3H PRN; Protocol PRN Reason: Pain, Severe (Pain Scale 7-10) Last Admin: 06/06/21 05:47 Dose: 4 mg Documented by: Nitroglycerin (Nitroglycerin 0.4 Mg Tab.Subl) 0.4 mg SUBLINGUAL Q5M PRN PRN Reason: Chest Pain Omeprazole (Omeprazole 20 Mg Capsule.) 20 mg PO BID@0630,1630 [facility] Last Admin: 06/06/21 05:50 Dose: 20 mg Documented by: Ondansetron HCl (Ondansetron Hcl 4 Mg/2 Ml Vial) 4 mg IVPUSH Q8H PRN PRN Reason: Nausea and Vomiting Oxycodone HCl (Oxycodone Hcl Immed Release 5 Mg Tablet) 5 mg PO Q4H PRN PRN Reason: Pain, Moderate (Pain Scale 4-6 Last Admin: 06/04/21 06:03 Dose: 5 mg Documented by: Oxycodone HCl (Oxycodone Hcl Immed Release 5 Mg Tablet) 10 mg PO Q4H PRN PRN Reason: Pain, Severe (Pain Scale 7-10) Last Admin: 06/06/21 08:06 Dose: 10 mg Documented by: Pharmacy Consult (Consult Rx Perform Med Rec) 1 each MISCELLANE ONCE PRN PRN Reason: Consult order Pregabalin (Pregabalin 200 Mg Capsule) 200 mg PO DAILY [facility] Last Admin: 06/06/21 08:04 Dose: 200 mg Documented by: Sodium Chloride (0.9 % Sodium Chloride Flush 3 Ml Syringe) 3 ml IVFLUSH QSHIFT [facility] Last Admin: 06/06/21 08:35 Dose: Not Given Documented by: Trazodone HCl (Trazodone Hcl 50 Mg Tablet) 50 mg PO BEDTIME [facility] Last Admin: 06/05/21 20:33 Dose: 50 mg Documented by: Time Spent With Patient Time: Total time spent is greater than 50% in coordination of care (as documented) at patient's floor/unit and/or counseling patient: Time with patient: 15 - 24 minutes Quality Stroke Does the patient have a stroke diagnosis?: No VTE Prior VTE?: No VTE Risk Level:: Medical - moderate - high VTE Device Contraindication: N/A - Device Ordered VTE Drug Contraindication: N/A - Med Ordered
--- NOTE | 2021-06-06 12:37 | MHC.CM.PN ---
CM SPOKE W/PT'S NURSE AND ATTENDING, PT WILL HAVE MAYI DRAIN REMOVED LATER TODAY OR EARLY TOMORROW AND WILL BE READY FOR D/C, CM HAS REQUESTED [facility] FOR AUTH AND PT'S SON PREM HAS BEEN MADE AWARE AT 12:20PM [phone], [address] [facility] HCP [facility] BRAVO D/T [facility]ENT'S NUMBER BEING INCORRECT AND ANGERL REPORTED PT RECEIVED COVID VACCINE AT [facility] APPROX NOVEMBER/DECEMBER OF THIS YEAR, ARPIT AND SON BOTH UNSURE OF WHICH VACCINE SHE RECEIVED. CM WILL CONT TO FOLLOW D/C NEEDS.
[2021-06-06] MEDS: 0.9 % Sodium Chloride Flush 3 ML SYRINGE IVFLUSH (15:03)
[2021-06-06 16:29] LABS: Glucose, Whole Blood 203 mg/dL (60-115)
[2021-06-06 20:59] LABS: Glucose, Whole Blood 162 mg/dL (60-115)
[2021-06-06] MEDS: traZODone HCL 50 MG TABLET PO (22:38)
[2021-06-07] MEDS: Lactated Ringers 1,000 ML 100 ML IVCONT ×2 (01:57→12:02)
[2021-06-07 03:34] VITALS: BP 134/65; PULSE 73; RESP 17; TEMP 36.5; O2SAT 94
[2021-06-07] MEDS: Omeprazole 20 MG CAPSULE.DR PO (06:07)
[2021-06-07 07:34] LABS: Glucose, Whole Blood 180 mg/dL (60-115)
[2021-06-07 07:48] VITALS: BP 145/73; PULSE 81; RESP 18; TEMP 36.4; O2SAT 95
[2021-06-07 07:56] VITALS: BP 145/73; PULSE 87
[2021-06-07] MEDS: Insulin Lispro 100 UNIT/ML 3 ML VIAL SUBCUT ×2 (07:56→12:01)
[2021-06-07] MEDS: Levothyroxine Sodium 100 MCG TABLET PO (07:56)
[2021-06-07] MEDS: dilTIAZem HCL CD 180 MG CAP.ER.24H 360 MG PO (07:56)
[2021-06-07 07:57] VITALS: BP 145/73; PULSE 87
[2021-06-07] MEDS: Metoprolol Succinate ER 100 MG TAB.ER.24H PO (07:57)
[2021-06-07] MEDS: glipiZIDE 5 MG TABLET PO (07:57)
[2021-06-07] MEDS: Docusate Sodium 100 MG CAPSULE PO (07:57)
[2021-06-07] MEDS: hydroCHLOROthiazide 12.5 MG TABLET PO (07:57)
[2021-06-07] MEDS: lisinopriL 40 MG TABLET PO (07:57)
[2021-06-07] MEDS: Atorvastatin Calcium 40 MG TABLET PO (07:58)
[2021-06-07] MEDS: Escitalopram Oxalate 10 MG TABLET PO (07:58)
[2021-06-07] MEDS: Pregabalin 200 MG CAPSULE PO (07:58)
--- NOTE | 2021-06-07 11:48 | MHC.CM.PN ---
Addendum entered by Ariela Rand 06/07/21 13:46: CM INFORMED [facility] HAS INSURANCE AUTH FOR PT TO STEP DOWN TO STR LOC. PTS SON, PREM NOTIFIED VIA T/C. PT WILL DC TO [facility] VIA BLS AT 1600 HOURS Original Note: \DCP IS FOR PT TO GO TO [facility] FOR STR PENDING INSURANCE AUTH AND A COPY OF PTS COVID VACCINE CARD. CM CONTACTED PTS SON, PREM. [phone] WHO REPORTED HE WAS IN [place] BUT WOULD EITHER BRING THE CARD HIMSELF OR HAVE A FAMILY MEMBER DO IT SOON POSSIBLE. PT AND SON AWARE OF DC PLAN AND THAT THE CURRENT BARRIERS ARE INSURANCE AUTH AND THE COVID VACC CARD
--- NOTE | 2021-06-07 11:50 | P.PNIM_ITS ---
Subjective Subjective Date of Service: 06/07/21 Interval History: pt interviewed in [place] Citizen c/o abd pain tolerating diet no fever no dyspnea no chest pain Review of Systems Review of Systems: Yes all other systems are reviewed and are negative Physical Exam Vital Signs: Vital Signs: Last Vital Signs Temp 97.6 F 06/07/21 07:48 Pulse 87 06/07/21 07:57 Resp 18 06/07/21 07:48 BP 145/73 H 06/07/21 07:57 Pulse Ox 95 06/07/21 07:48 Body Mass Index 34.3 Gen: in no acute distress HEENT: sclera anicteric, moist mucus membranes Neck: supple Lungs: clear to auscultation bilaterally Heart: regular rate and rhythm, no murmurs Abd: soft, obese, nontender Ext: no edema Skin: warm/well-perfused Neuro: alert and oriented x3, no focal findings Psych: appropriate affect Objective Data Active Medications Acetaminophen (Acetaminophen 325 Mg Tablet) 650 mg PO Q4H PRN PRN Reason: Pain, Mild (Pain Scale 1-3) Atorvastatin Calcium (Atorvastatin Calcium 40 Mg Tablet) 40 mg PO DAILY [facility] Last Admin: 06/07/21 07:58 Dose: 40 mg Documented by: HALLE Clonazepam (Clonazepam 0.5 Mg Tablet) 0.5 mg PO BID PRN PRN Reason: Anxiety Last Admin: 06/05/21 09:42 Dose: 0.5 mg Documented by: HOLLY Dextrose (Dextrose 50 % 25 Gm/50 Ml Vial) 25 gm IVPUSH Q15M PRN; Protocol PRN Reason: per Hypoglycemia Standing Ord. Diltiazem HCl (Diltiazem Hcl Cd 180 Mg Cap.Er.24h) 360 mg PO DAILY [facility]; Protocol Last Admin: 06/07/21 07:56 Dose: 360 mg Documented by: HALLE Docusate Sodium (Docusate Sodium 100 Mg Capsule) 100 mg PO BID [facility] Last Admin: 06/07/21 07:57 Dose: 100 mg Documented by: HALLE Escitalopram Oxalate (Escitalopram Oxalate 10 Mg Tablet) 10 mg PO DAILY [facility] Last Admin: 06/07/21 07:58 Dose: 10 mg Documented by: HALLE Glipizide (Glipizide 5 Mg Tablet) 5 mg PO DAILY [facility] Last Admin: 06/07/21 07:57 Dose: 5 mg Documented by: HALLE Glucose (Glucose Gel 15 Gm Gel..Gram.) 15 gm PO Q15M PRN; Protocol PRN Reason: per Hypoglycemia Standing Ord. Hydrochlorothiazide (Hydrochlorothiazide 12.5 Mg Tablet) 12.5 mg PO DAILY [facility]; Protocol Last Admin: 06/07/21 07:57 Dose: 12.5 mg Documented by: HALLE Hydromorphone HCl (Hydromorphone Hcl 0.5 Mg/0.5 Ml Syringe) 0.25 mg IVPUSH Q5M PRN; Protocol PRN Reason: Pain, Severe (Pain Scale 7-10) Last Admin: 06/03/21 15:29 Dose: 0.25 mg Documented by: CLEMENTINA Lactated Ringer's (Lr) 1,000 mls @ 100 mls/hr IVCONT .Q10H [facility] Last Admin: 06/07/21 01:57 Dose: 100 mls/hr Documented by: KHUSHI Promethazine HCl 6.25 mg/ (Sodium Chloride) 50.25 mls @ 201 mls/hr IV ONCE PRN PRN Reason: Nausea and Vomiting Last Infusion: 06/03/21 16:51 Dose: 0 mls/hr Documented by: KAILEY Insulin Human Lispro (Insulin Lispro 100 Unit/Ml 3 Ml Vial) 0 unit SUBCUT QIDACHS [facility]; Protocol Last Admin: 06/07/21 07:56 Dose: 2 unit Documented by: HALLE Levothyroxine Sodium (Levothyroxine Sodium 100 Mcg Tablet) 100 mcg PO DAILY [facility] Last Admin: 06/07/21 07:56 Dose: 100 mcg Documented by: HALLE Lisinopril (Lisinopril 40 Mg Tablet) 40 mg PO DAILY [facility]; Protocol Last Admin: 06/07/21 07:57 Dose: 40 mg Documented by: HALLE Metoprolol Succinate (Metoprolol Succinate Er 100 Mg Tab.Er.24h) 100 mg PO DAILY [facility]; Protocol Last Admin: 06/07/21 07:57 Dose: 100 mg Documented by: HALLE Nitroglycerin (Nitroglycerin 0.4 Mg Tab.Subl) 0.4 mg SUBLINGUAL Q5M PRN PRN Reason: Chest Pain Omeprazole (Omeprazole 20 Mg Capsule.Dr) 20 mg PO BID@0630,1630 [facility] Last Admin: 06/07/21 06:07 Dose: 20 mg Documented by: KHUSHI Ondansetron HCl (Ondansetron Hcl 4 Mg/2 Ml Vial) 4 mg IVPUSH Q8H PRN PRN Reason: Nausea and Vomiting Oxycodone HCl (Oxycodone Hcl Immed Release 5 Mg Tablet) 5 mg PO Q4H PRN PRN Reason: Pain, Moderate (Pain Scale 4-6 Last Admin: 06/04/21 06:03 Dose: 5 mg Documented by: AMBROSIO Pharmacy Consult (Consult Rx Perform Med Rec) 1 each MISCELLANE ONCE PRN PRN Reason: Consult order Pregabalin (Pregabalin 200 Mg Capsule) 200 mg PO DAILY [facility] Last Admin: 06/07/21 07:58 Dose: 200 mg Documented by: HALLE Sodium Chloride (0.9 % Sodium Chloride Flush 3 Ml Syringe) 3 ml IVFLUSH QSHIFT [facility] Last Admin: 06/07/21 07:58 Dose: Not Given Documented by: HALLE Non-Admin Reason: IV Running Trazodone HCl (Trazodone Hcl 50 Mg Tablet) 50 mg PO BEDTIME [facility] Last Admin: 06/06/21 22:38 Dose: 50 mg Documented by: KHUSHI Labs CBC & Chem 7: 06/06/21 05:59 06/04/21 04:07 Labs: Laboratory Results - last 24 hr 06/06/21 06/06/21 06/07/21 16:25 20:55 07:02 POC Glucose 203 H 162 H 180 H Assessment and Plan (1) HTN (hypertension): Status: Acute (2) Diabetes mellitus: Status: Acute (3) Hypercholesterolemia: Status: Acute Assessment and Plan: hospital d#5 75yo F with HTN, DM, hypothyroidism, HLD s/p elective cholecystectomy on 06/03, laparoscopic converted to open hospitalist consult for management of comorbid issues # DM2 - restarted GPZ since eating regular meals; also correction-dose lispro # HTN - continue HCTZ, lisinopril, diltiazem, metoprolol # HLD - continue atorvastatin # GERD - continue omeprazole # hypothyroidism - continue LT4 # leukocytosis - likely due to surgery; improved # mood disorder - continue trazodone + escitalopram # VTE ppx - SCDs Quality Stroke Does the patient have a stroke diagnosis?: No VTE Prior VTE?: No VTE Risk Level:: Medical - moderate - high VTE Device Contraindication: N/A - Device Ordered VTE Drug Contraindication: N/A - Med Ordered
[2021-06-07 11:56] LABS: Glucose, Whole Blood 257 mg/dL (60-115)
[2021-06-07 12:00] VITALS: BP 159/81; PULSE 84; RESP 18; TEMP 36; O2SAT 94
--- NOTE | 2021-06-07 13:08 | P.DS_ITS ---
DS: Providers Provider Date of Service: 06/07/21 Date of admission: 06/03/21 13:34 Date of discharge: 06/07/21 Primary care physician: Roberto Carlos Sanford MD Admitting clinician: Chandu Bynum Consults: 06/03/21 16:23 Consult to Hospitalist Routine Consulting Provider: Hospitalist Reason For Exam: s/p open cholecystectomy, Diabetes, HTN med manage DS: Transfer Hospital Acceptance Reason for Transfer: Pt s/p open cholecystectomy and needs short term rehab to improve strength and functioning DS: Diagnosis Discharge Diagnosis (1) HTN (hypertension): Status: Acute (2) Diabetes mellitus: Status: Acute (3) Hypercholesterolemia: Status: Acute DS: Summary Hospital Course Hospital Course: BRIEF HPI: 75-year-old female presenting with complaints of abdominal pain in t he right upper quadrant found to have thickened gallbladder wall with gallstones suggestive of acute cholecystitis due to cholelithiasis.? She presents today for laparoscopic or possible open cholecystectomy. HOSPITAL COURSE: On 06/03/21, a laparoscopic attempted converted to open cholecystectomy, closure of cholecystoenteric fistula was performed by Dr. Bynum without complication. There were dense adhesions of the liver to the anterior abdominal wall and dense adhesions to the gallbladder with marked scarring of the gallbladder to the distal stomach and duodenum necessitating opening. 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 The patient tolerated the procedure well, completed routine recovery in PACU and was admitted to the medical/surgical floor for observation. The patient had a slow but uncomplicated recovery course. A hospitalist consult was obtained for her medical comorbidities. On POD #1, she was doing fairly well but had difficulty with pain control. She was tolerating solids but didn't have much of an appetite. She was ambulated with a lot of assistance. She had a leukocytosis of 22.9 which was thought to be reactive and this was trended. She remained afebrile. It began to downtrend and continued to improve throughout her stay. The patient remained inpatient over the next couple of days for pain control which gradually improved. Her home medications were resumed. She became comfortable on PO analgesics. Her appetite improved. She however felt weak overall and did not feel comfortable returning to home with her stairs. PT consult was requested who recommended discharge to [facility]. On the day of discharge, she was tolerating a solid diet without n/v, her pain was well controlled, she was clinically well with a benign abdominal exam with appropriate post op tenderness. Her MAYI continued with nonbilious output and was removed. She was transferred to Status at Discharge Functional status at discharge: bed bound Overall status at discharge: patient is not back to baseline Time Spent with Patient Time attestation: Total time spent providing and/or coordinating discharge services: Discharge coordination time: Less than 30 minutes Quality: Stroke Does the patient have a stroke diagnosis?: No Reason for No Anti-thrombotic at DC: Not indicated Reason for No Anticoagulant at DC: Not indicated Physical Exam Vital Signs: Vital Signs: Last Vital Signs Temp 96.8 F 06/07/21 12:00 Pulse 84 06/07/21 12:00 Resp 18 06/07/21 12:00 BP 159/81 H 06/07/21 12:00 Pulse Ox 94 06/07/21 12:00 Body Mass Index 34.3 Const: General: lethargic Orientation/consciousness: lethargic Resp: Effort & Inspection: normal respiratory effort Cardio: Rate: regular rate Rhythm: regular rhythm GI: Palpation (GI): not firm, nontender and no guarding Auscultation: normal bowel sounds Psych: Other: very sleepy and not awake for most of juanjo day and night DS: Data Data Completed and Pending Completed studies during hospitalization [Text1]: Pending at discharge 06/03/21 13:53 Surgical [PTH] Routine Labs on day of discharge: Laboratory Results - last 24 hr 06/06/21 06/06/21 06/07/21 16:25 20:55 07:02 POC Glucose 203 H 162 H 180 H 06/07/21 11:30 POC Glucose 257 H Discharge Plan Discharge Anticipated Discharge Date/Time: 06/07/21 13:06 Patient Disposition: Xfer SNF Discharge Diagnosis: s/p open cholecystectomy Referrals: Roberto Carlos Sanford MD [Primary Care Provider] - 1 Week Chandu Bynum MD [Physician] - 1 Week Discharge Medications: Continued tramadol 50 mg tablet 50 mg PO BID PRN (Reason: Pain) Qty: 60 RF: 5 omeprazole 20 mg capsule,delayed release(DR/EC) 20 mg PO BID 14 Days Qty: 28 RF: 0 sitagliptin 100 mg tablet 100 mg PO DAILY RF: 0 nabumetone 500 mg tablet 500 mg PO DAILY RF: 0 pregabalin 200 mg capsule 200 mg PO DAILY RF: 0 metformin 500 mg tablet extended release 24 hr 1,000 mg PO BID RF: 0 lisinopril 40 mg tablet 40 mg PO DAILY RF: 0 hydrochlorothiazide 12.5 mg capsule 12.5 mg PO DAILY RF: 0 citalopram 20 mg tablet 20 mg PO DAILY RF: 0 aspirin 81 mg tablet,delayed release (DR/EC) 81 mg PO DAILY RF: 0 diltiazem HCl 360 mg capsule,extended release 24 hr 360 mg PO DAILY RF: 0 glipizide 10 mg tablet extended release 24hr 10 mg PO DAILY RF: 0 metoprolol succinate 100 mg tablet extended release 24 hr 100 mg PO DAILY RF: 0 atorvastatin 40 mg tablet 40 mg PO DAILY RF: 0 trazodone 50 mg tablet 50 mg PO BEDTIME RF: 0 clonazepam 0.5 mg tablet 0.5 mg PO BID PRN (Reason: Anxiety) RF: 0 docusate sodium 100 mg capsule 100 mg PO BID RF: 0 levothyroxine 100 mcg tablet 100 mcg PO DAILY RF: 0 (DME) lancets 28 gauge misc See Rx Instructions ea topical .MEDSUPPLY Qty: 100 RF: 0 (DME) blood sugar diagnostic Strip See Rx Instructions ea Not Applicable .MEDSUPPLY Qty: 10 RF: 0 bisacodyl 5 mg tablet,delayed release (DR/EC) 5 mg PO DAILY RF: 0 diclofenac sodium 1 % gel 1 ea topical DAILY RF: 0 nitroglycerin 0.4 mg tablet, sublingual 0.4 mg sublingual NEEDED PRN (Reason: Chest Pain) RF: 0 ondansetron HCl 4 mg tablet 4 mg PO Q6H PRN (Reason: nausea/vomiting) RF: 0 chlorhexidine gluconate 0.12 % mouthwash 5 - 10 ml PO BID RF: 0 folic acid 1 mg tablet 1 mg PO DAILY RF: 0 Discharge Orders: Discharge Order (Routine); Ordered 06/07/21 Ordered By: Gina Plaza Diet: diabetic diet and low fat, low cholesterol Activity on Discharge: No heavy lifting Stand Alone Forms: Patient Portal Discharge page Activity Restrictions/Additional Instructions: If the incision area is tender, you may apply an ice pack for short intervals (No more than 20 minutes on, followed by at least 20 minutes off). Do not apply heat. Do not use creams, lotions, or topical antibiotics unless instructed to do so by your surgeon. These can cause infection or allergic reaction. Ok to shower. You have urszula closing your incision and these will be removed approximately 10-14 days after surgery. NO HEAVY LIFTING (>10lbs). Follow up in office with Dr. Bynum in 1 week. ([phone]) Call Your Doctor If: -Your temperature exceeds 101.5? F -You experience excessive pain or swelling -You have an unexpected reaction to medication -You have excessive bleeding -You experience continued vomiting/nausea -Your incision begins to separate -Your incision shows signs of infection such as increased redness, swelling, excessive pain, drainage (light blood or clear fluid is normal) or heat Care Plan Goals: Return to baseline health and gradual return to activity following recovery period. Health Concerns: Diabetes mellitus, HTN, s/p open cholecystectomy Plan of Treatment: Discharge to [facility] for strenghtening, f/u in office in 1 week. Assessment: Improved
[2021-06-07 15:50] VITALS: BP 119/60; PULSE 78; RESP 17; TEMP 36.6; O2SAT 93
[2021-06-07 16:47] LABS: Glucose, Whole Blood 274 mg/dL (60-115)
== END 2021-06-07 16:45 | disposition skilled nursing facility (03) | DRG 415 ==
LOC: HO.S3 13:37
PROVIDERS: Physician Assistant Surgical; Admitting Provider Surgery; PCP Internal Medicine; Visit Provider Surgery
PROC: 0FT44ZZ Resection of Gallbladder, Percutaneous Endoscopic Approach (ICD-10-PCS; CPT 47562; principal; 2021-06-03 12:00)
DX: K81.2 Acute cholecystitis with chronic cholecystitis (principal); K83.3 Fistula of bile duct; E03.9 Hypothyroidism, unspecified; K21.9 Gastro-esophageal reflux disease without esophagitis; E78.5 Hyperlipidemia, unspecified; E11.40 Type 2 diabetes mellitus with diabetic neuropathy, unspecified; Z20.822 Contact with and (suspected) exposure to COVID-19; Z87.891 Personal history of nicotine dependence; Z88.6 Allergy status to analgesic agent; Z79.82 Long term (current) use of aspirin; Z79.84 Long term (current) use of oral hypoglycemic drugs; Z79.890 Hormone replacement therapy; Z79.899 Other long term (current) drug therapy; K66.0 Peritoneal adhesions (postprocedural) (postinfection)
CPT/HCPCS: 36415; 80048; 80076; 82947; 85025; 87635; 88304; 97162; 99024; J1100; J1170; J2270; J2405; J2550; J3010

== ENCOUNTER → 2021-06-12 09:14 | Outpatient (BNVA) | payer MEDICARE, SELFPAY | PROVIDERS: PCP Internal Medicine; Referring Provider Internal Medicine; Visit Provider Surgery | DX: Z48.815 Encounter for surgical aftercare following surgery on the digestive system (principal); Z87.19 Personal history of other diseases of the digestive system | CPT/HCPCS: 99212 ==

== ENCOUNTER → 2021-07-14 08:13 | Outpatient (BNVA) | payer MEDICARE, SELFPAY | PROVIDERS: PCP Internal Medicine; Referring Provider Internal Medicine; Visit Provider Surgery | DX: Z48.815 Encounter for surgical aftercare following surgery on the digestive system (principal); Z90.49 Acquired absence of other specified parts of digestive tract | CPT/HCPCS: 99212 ==

== ENCOUNTER 2021-07-15 13:32 | Outpatient (RCR) | payer MEDICARE, SELFPAY | END 2021-09-01 13:32 | disposition home or self-care (01) | LOC: HO.WCC 13:32 | PROVIDERS: PCP Internal Medicine; Visit Provider Surgery | DX: Z09 Encounter for follow-up examination after completed treatment for conditions other than malignant neoplasm (principal); E11.52 Type 2 diabetes mellitus with diabetic peripheral angiopathy with gangrene; Z86.31 Personal history of diabetic foot ulcer | CPT/HCPCS: 99212; 99213 ==

== ENCOUNTER 2021-08-05 14:47 | Emergency (ER) | payer MEDICARE, SELFPAY ==
--- NOTE | ~2021-08-05 | CT_ITS ---
EXAMINATION: CT HEAD WITHOUT CONTRAST CLINICAL INFORMATION: Status post fall. COMPARISON: CT head dated from 11/05/2020. TECHNIQUE: Contiguous axial imaging was performed from the skull base to vertex without intravenous administration of contrast. This CT examination was performed using dose optimization techniques as appropriate, variously including the following: *Automated exposure control *Adjustment of mA and/or kV according to patient size (this includes techniques or standardized protocols for targeted exams where dose is matched to indication/reason for exam; i.e. extremities or head) *Use of iterative reconstruction technique DLP: 603 mGy-cm FINDINGS: There is no evidence of acute intracranial hemorrhage or edematous territorial infarction. Scattered hypoattenuation in the periventricular and deep white matter are consistent with moderate microangiopathy. Rios-white matter differentiation is preserved. Proportional prominence of the ventricles and sulcal spaces. No evidence for obstructive hydrocephalus. No abnormal mass effect or midline shift. No extra-axial fluid collections. There is a large subgaleal hematoma/contusion in the left frontal scalp. No acute osseous abnormalities. The mastoid air cells and paranasal sinuses are clear. CT/CT head/brain wo con IMPRESSION: Large subgaleal hematoma in the left frontal scalp without evidence of acute intracranial abnormalities.
[2021-08-05 14:58] VITALS: BP 162/80; PULSE 92; O2SAT 98
[2021-08-05 15:16] VITALS: BP 108/51; PULSE 75; RESP 18; TEMP 36.8; O2SAT 95; BMI 24.2
--- NOTE | 2021-08-05 19:24 | ED_ITS ---
HPI - Altered Mental Status General Chief Complaint: Altered Mental Status Stated Complaint: AMS X'S WEEKS,L HEEL INF Time Seen by Provider: 08/05/21 19:24 Source: family and EMS Mode of arrival: EMS Limitations: altered mental status History of Present Illness HPI narrative: Patient history of dementia for last few days been more confused according to grandson brought by EMS for further evaluation patient does have a black eschar right heel decubitus had cholecystectomy done once 07/14/2021 otherwise no cough no fever no vomiting patient is eating fine while waiting on the wheelchair outside in the waiting area patient slumped down and fell hitting her forehead to the ground has small hematoma on left forehead no other injuries Related Data Home Medications Medication Instructions Recorded Confirmed aspirin 81 mg tablet,delayed 81 mg PO DAILY 05/23/20 05/28/21 release atorvastatin 40 mg tablet 40 mg PO DAILY 05/23/20 05/28/21 bisacodyl 5 mg tablet,delayed 5 mg PO DAILY 05/23/20 05/28/21 release blood sugar diagnostic #10 ea 05/23/20 05/28/21 chlorhexidine gluconate 0.12 % 5 - 10 ml PO BID 05/23/20 05/28/21 mouthwash citalopram 20 mg tablet 20 mg PO DAILY 05/23/20 05/28/21 clonazepam 0.5 mg tablet 0.5 mg PO BID PRN 05/23/20 05/28/21 diclofenac sodium 1 % topical gel 1 ea TOPICAL DAILY 05/23/20 05/28/21 diltiazem HCl 360 mg capsule,24 360 mg PO DAILY 05/23/20 05/28/21 hr,extended release docusate sodium 100 mg capsule 100 mg PO BID 05/23/20 05/28/21 folic acid 1 mg tablet 1 mg PO DAILY 05/23/20 05/28/21 glipizide 10 mg tablet, extended 10 mg PO DAILY 05/23/20 05/28/21 release 24 hr hydrochlorothiazide 12.5 mg capsule 12.5 mg PO DAILY 05/23/20 05/28/21 lancets 28 gauge #100 ea 05/23/20 05/28/21 levothyroxine 100 mcg tablet 100 mcg PO DAILY 05/23/20 05/28/21 lisinopril 40 mg tablet 40 mg PO DAILY 05/23/20 05/28/21 metformin 500 mg tablet,extended 1,000 mg PO BID 05/23/20 05/28/21 release 24 hr metoprolol succinate 100 mg 100 mg PO DAILY 05/23/20 05/28/21 tablet,extended release 24 hr nabumetone 500 mg tablet 500 mg PO DAILY 05/23/20 05/28/21 nitroglycerin 0.4 mg sublingual 0.4 mg SUBLINGUAL NEEDED PRN 05/23/20 05/28/21 tablet ondansetron HCl 4 mg tablet 4 mg PO Q6H PRN 05/23/20 05/28/21 pregabalin 200 mg capsule 200 mg PO DAILY 05/23/20 05/28/21 sitagliptin 100 mg tablet 100 mg PO DAILY 05/23/20 05/28/21 trazodone 50 mg tablet 50 mg PO BEDTIME 05/23/20 05/28/21 Previous Rx's Medication Instructions Recorded tramadol 50 mg tablet 50 mg PO BID PRN #60 tab 01/02/21 omeprazole 20 mg capsule,delayed 20 mg PO BID 14 Days #28 cap 04/12/21 release Allergies Allergy/AdvReac Type Severity Reaction Status Date / Time ibuprofen [From MOTRIN] Allergy Unknown UPSET Verified 06/03/21 10:43 STOMACH Review of Systems Review of Systems: Yes Unobtainable due to mental status PMFSH Past Medical History Medical History Anxiety Asthma Depression Diabetes mellitus Diabetic neuropathy Dysphagia Fibromyalgia GERD (gastroesophageal reflux disease) Hiatal hernia HTN (hypertension) Hx of gastritis Hypercholesterolemia Hypothyroidism IBS (irritable bowel syndrome) Mini stroke Mononeuritis On beta jeannie at home Osteoarthritis Osteoporosis Vitamin B 12 deficiency Surgical History H/O local excision of skin lesion History of ankle surgery History of back surgery History of esophagogastroduodenoscopy (EGD) History of open reduction and internal fixation (ORIF) procedure Hx of hysterectomy Family History Family History Sister Diabetes Social History Social History Household Members: Unknown / Unable to assess Housing: Unknown / Unable to assess Unable to assess alcohol history related to: Unknown Alcohol intake: never Patient Tobacco Use Status: Former Tobacco user Quit Date: >20 yr ago Advance Directives: No Advance Directives Information Provided: No service: No Current occupational status: disabled 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 Oriented X1-2. No acute distress. Eyes: PERRLA, HEENT: Pharynx normal. Oral Mucosa moist soft tissue hematoma left frontal area Neck: Normal inspection. Neck supple. CVS: Normal heart rate and rhythm. Pulses normal. Respiratory: No respiratory distress. Equal air entry bilateral, no wheezing/rales/rhonchi Abdomen: Soft and nontender. Bowel sounds are present, no mass palpable, no CVA tenderness Skin: Skin warm and dry. Normal skin color. Normal skin turgor. Extremities: No lower extremity edema. No calf tenderness blackish her decubitus ulcer the right heel with surrounding erythema no pus discharge Neuro: Oriented X 3. No motor deficit. No sensory deficit.No cerebellar signs , cranial nerves II-XII intact Course Reevaluation(s) Reevaluation #1: Spoke to patient grandson was very rude and upset the patient not been taking care of for last few hours we told him that patient already has blood workup done and pending further reports will give her antibiotics and admit but he still does not want to keep the patient in the hospital wants to take the patient on his own risk will take the patient to her PCP tomorrow signed against medical advice Time: 20:30 MDM - Altered Mental Status MDM Narrative Medical decision making narrative: Labs were drawn possible patient has been faction remaining labs are pending but patient grandson who has health proxy came wanted to take her home signed against medical advise knowing the risk of her condition getting worse and possible Lab Data Attestation: I reviewed the patient's lab results. Result diagrams: 08/05/21 19:58 08/05/21 20:25 Labs: Lab Results 08/05/21 08/05/21 08/05/21 Range/Units 19:58 20:25 20:25 WBC 18.6 H (4.8-10.8) X10*3/uL RBC 3.71 L (4.20-5.50) X10*6/uL Hgb 9.8 L (12.0-16.0) g/dl Hct 31.0 L (37.0-47.0) % MCV 83.6 (80.0-98.0) fL MCH 26.4 L (27.0-33.0) pg MCHC 31.6 (31.0-35.0) g/dl RDW 16.0 (11.0-16.0) % Plt Count 579 H (160-400) X10*3/uL MPV 10.3 (9.4-12.3) fL Immature Gran % (Auto) 0.6 H (0.0-0.4) % Neut % (Auto) 76.1 H (45-73) % Lymph % (Auto) 16.3 L (20-40) % [place] % (Auto) 6.3 (2-11) % Eos % (Auto) 0.3 (0-4) % Baso % (Auto) 0.4 (0-2) % Lymph # (Auto) 3.0 (1.2-4.9) X10*3/uL [place] # (Auto) 1.2 (0.1-1.2) X10*3/uL Eos # (Auto) 0.1 (0.0-0.4) X10*3/uL Baso # (Auto) 0.1 (0.0-0.2) X10*3/uL Abs Immat Gran (auto) 0.11 H (0.00-0.03) X10*3/uL Absolute Neuts (auto) 14.2 H (2.0-8.3) x10*3/uL Absolute Nucleated RBC 0.000 (0.0-0.012) X10*3/uL Nucleated RBC % (auto) 0.0 (0.0-0.2) /100WBC Sodium 139 (135-145) mmol/L Potassium 4.3 (3.3-5.1) mmol/L Chloride 102 (96-108) mmol/L Carbon Dioxide 22 (22-29) mmol/L Anion Gap 19 (12-20) BUN 16 (9-16) mg/dL Creatinine 1.09 (0.5-1.4) mg/dL Estim Creat Clear Calc 33.0 Estimated GFR 49 Random Glucose 250 H (60-115) mg/dL Lactic Acid 1.5 (0.5-2.0) mmol/L Calcium 9.5 D (8.4-10.2) mg/dL Total Bilirubin 0.4 (0.0-1.0) mg/dL Direct Bilirubin < 0.2 (0.0-0.5) mg/dL AST 14 D (5-31) U/L ALT 11 (0-31) U/L Alkaline Phosphatase 145 H D (39-117) U/L Total Protein 7.6 D (6.5-8.0) g/dL Albumin 3.9 D (3.5-5.0) g/dL Discharge Plan Discharge Clinical Impression: Decubitus ulcer, infected Qualifiers: Pressure injury stage: stage 3 Qualified Code(s): L89.93 - Pressure ulcer of unspecified site, stage 3 Altered mental state Qualifiers: Altered mental status type: unspecified Qualified Code(s): R41.82 - Altered mental status, unspecified Leukocytosis Qualifiers: Leukocytosis type: unspecified Qualified Code(s): D72.829 - Elevated white blood cell count, unspecified Patient Disposition: Left Against Medical Advice Additional Instructions: You been advised to keep the patient in the hospital but you decided to take the patient home against medical advise Prescriptions: No Action tramadol 50 mg tablet 50 mg PO BID PRN (Reason: Pain) Qty: 60 RF: 5 omeprazole 20 mg capsule,delayed release(DR/EC) 20 mg PO BID 14 Days Qty: 28 RF: 0 sitagliptin 100 mg tablet 100 mg PO DAILY RF: 0 nabumetone 500 mg tablet 500 mg PO DAILY RF: 0 pregabalin 200 mg capsule 200 mg PO DAILY RF: 0 metformin 500 mg tablet extended release 24 hr 1,000 mg PO BID RF: 0 lisinopril 40 mg tablet 40 mg PO DAILY RF: 0 hydrochlorothiazide 12.5 mg capsule 12.5 mg PO DAILY RF: 0 citalopram 20 mg tablet 20 mg PO DAILY RF: 0 aspirin 81 mg tablet,delayed release (DR/EC) 81 mg PO DAILY RF: 0 diltiazem HCl 360 mg capsule,extended release 24 hr 360 mg PO DAILY RF: 0 glipizide 10 mg tablet extended release 24hr 10 mg PO DAILY RF: 0 metoprolol succinate 100 mg tablet extended release 24 hr 100 mg PO DAILY RF: 0 atorvastatin 40 mg tablet 40 mg PO DAILY RF: 0 trazodone 50 mg tablet 50 mg PO BEDTIME RF: 0 clonazepam 0.5 mg tablet 0.5 mg PO BID PRN (Reason: Anxiety) RF: 0 docusate sodium 100 mg capsule 100 mg PO BID RF: 0 levothyroxine 100 mcg tablet 100 mcg PO DAILY RF: 0 (DME) lancets 28 gauge misc See Rx Instructions ea topical .MEDSUPPLY Qty: 100 RF: 0 (DME) blood sugar diagnostic Strip See Rx Instructions ea Not Applicable .MEDSUPPLY Qty: 10 RF: 0 bisacodyl 5 mg tablet,delayed release (DR/EC) 5 mg PO DAILY RF: 0 diclofenac sodium 1 % gel 1 ea topical DAILY RF: 0 nitroglycerin 0.4 mg tablet, sublingual 0.4 mg sublingual NEEDED PRN (Reason: Chest Pain) RF: 0 ondansetron HCl 4 mg tablet 4 mg PO Q6H PRN (Reason: nausea/vomiting) RF: 0 chlorhexidine gluconate 0.12 % mouthwash 5 - 10 ml PO BID RF: 0 folic acid 1 mg tablet 1 mg PO DAILY RF: 0 Interventions: ED Discharge Assessment Last Done: 08/05/21 20:53 Discharge Date/Time: 08/05/21 20:53 Print Language: Mohawk
[2021-08-05 20:01] LABS: MANUAL DIFF FLAG NO
[2021-08-05 20:02] LABS: Basophils Absolute Auto 0.1 X10*3/uL (0.0-0.2); Basophils Percent Auto 0.4 % (0-2); Eosinophils Absolute Auto 0.1 X10*3/uL (0.0-0.4); Eosinophils Percent Auto 0.3 % (0-4); Hemoglobin 9.8 g/dl (12.0-16.0); Imm Gran Abs Auto 0.11 X10*3/uL (0.00-0.03); Imm Gran Pct Auto 0.6 % (0.0-0.4); Lymphocytes Percent Auto 16.3 % (20-40); Mean Corpuscular HGB Conc 31.6 g/dl (31.0-35.0); Mean Corpuscular Hemoglobin 26.4 pg (27.0-33.0); Mean Corpuscular Volume 83.6 fL (80.0-98.0); Mean Platelet Volume 10.3 fL (9.4-12.3); Monocytes Absolute Auto 1.2 X10*3/uL (0.1-1.2); Monocytes Percent Auto 6.3 % (2-11); Neutrophils Absolute Auto 14.2 x10*3/uL (2.0-8.3); Neutrophils Percent Auto 76.1 % (45-73); Platelet Count 579 X10*3/uL (160-400); Red Blood Count 3.71 X10*6/uL (4.20-5.50); White Blood Count 18.6 X10*3/uL (4.8-10.8)
[2021-08-05 20:44] LABS: Lactic Acid 1.5 mmol/L (0.5-2.0)
--- NOTE | 2021-08-05 20:48 | PC.NURSE ---
pt came to the ER for AMS per grandson, while waiting in the waiting room pt fell and hit head was brought back for CT scan and blood work, pts grandson was very aggravated and began causing a scene, grandson was asked to leave, grandson returned and was adamant about taking grandmother stating shes been here since 3pm and not gotten any medical attention .
[2021-08-05 20:49] LABS: Alanine Aminotransferase 11 U/L (0-31); Albumin Level 3.9 g/dL (3.5-5.0); Alkaline Phosphatase 145 U/L (39-117); Anion Gap 19 (12-20); Aspartate Amino Transferase 14 U/L (5-31); Bilirubin Direct < 0.2 mg/dL (0.0-0.5); Bilirubin Total 0.4 mg/dL (0.0-1.0); Blood Urea Nitrogen 16 mg/dL (9-16); Calcium 9.5 mg/dL (8.4-10.2); Carbon Dioxide 22 mmol/L (22-29); Chloride 102 mmol/L (96-108); Estimated Glomerular Filt Rate 49; Glucose Random 250 mg/dL (60-115); Potassium 4.3 mmol/L (3.3-5.1); Sodium 139 mmol/L (135-145); Total Protein 7.6 g/dL (6.5-8.0)
== END 2021-08-05 20:53 | disposition left against medical advice (07) ==
PROVIDERS: Emergency Provider Internal Medicine
DX: L89.93 Pressure ulcer of unspecified site, stage 3 (principal); R41.82 Altered mental status, unspecified; F03.90 Unspecified dementia, unspecified severity, without behavioral disturbance, psychotic disturbance, mood disturbance, and anxiety; D72.829 Elevated white blood cell count, unspecified; Z87.891 Personal history of nicotine dependence; Z79.899 Other long term (current) drug therapy
CPT/HCPCS: 36415; 70450; 80048; 80076; 83605; 85025; 87040; 99283; 99284

== ENCOUNTER → 2021-08-11 14:01 | Outpatient (BNVA) | payer MEDICARE, SELFPAY | PROVIDERS: PCP Internal Medicine; Visit Provider Surgery Vascular Surgery | DX: E11.622 Type 2 diabetes mellitus with other skin ulcer (principal); L97.909 Non-pressure chronic ulcer of unspecified part of unspecified lower leg with unspecified severity; E11.51 Type 2 diabetes mellitus with diabetic peripheral angiopathy without gangrene | CPT/HCPCS: 99202 ==

== ENCOUNTER 2021-08-12 12:41 | Inpatient (IN) | payer MEDICARE, SELFPAY ==
--- NOTE | ~2021-08-12 | XR_ITS ---
EXAMINATION: XR CHEST CLINICAL INFORMATION: Right foot infection. COMPARISON: Chest radiograph dated from 04/16/2021. TECHNIQUE: AP view of the chest was obtained. FINDINGS: Normal appearance of the cardiomediastinal silhouette. Adequately expanded lungs with minimal interstitial prominence. No pleural effusions or pneumothorax. No acute osseous abnormalities. Right upper quadrant surgical clips. XR/XR chest 1V IMPRESSION: Mild interstitial prominence of uncertain etiology. This could be related with an infectious or inflammatory process of the small airways in the appropriate clinical context.
--- NOTE | ~2021-08-12 | MR_ITS ---
EXAMINATION: MR ANKLE WITHOUT AND WITH CONTRAST, RIGHT CLINICAL INFORMATION: Rule out osteomyelitis of the foot/ankle. COMPARISON: 08/12/2021 TECHNIQUE: MRI of the ankle was performed before and after the intravenous administration of 6 mL of Gadavist on a high-field scanner. FINDINGS: ACHILLES TENDON: Normal. OTHER TENDONS: Intact. LIGAMENTS: Multiple low signal intensity within the deep fibers of the deltoid is likely due to chronic scarring from a prior sprain or partial tear. No acute ligamentous injuries. Lateral ankle ligaments are intact. Spring ligament is normal. BONE AND ARTICULAR CARTILAGE: Bone marrow signal is normal at the ankle and hindfoot. There is an old avulsion fracture at Chaput's tubercle along the attachment of the anterior tibiofibular ligament. Minimal chondral fissuring at the talar dome. Small marginal osteophytes of the subtalar joint. Midfoot joints are unremarkable. JOINT FLUID AND SOFT TISSUES: There is subcutaneous edema at the ankle and hindfoot. The superficial wound at the dorsal aspect of the calcaneus is well seen. Mild associated edema signal and enhancement are present in this region. Underlying tendon and bone are normal in signal intensity with osteomyelitis. No evidence of abscess. There is fatty atrophy of the majority of the intrinsic foot musculature with increased T2 signal in the remaining muscle fibers, consistent with chronic denervation change, most typical of diabetic neuropathy. PLANTAR FASCIA: Central band is mildly thickened proximally no tears. Plantar calcaneal enthesopathic spur. SINUS TARSI AND TARSAL TUNNEL: Normal. MR/MR ankle RT wo/w con IMPRESSION: Superficial skin wound at the posterior margin of the calcaneal tuberosity without underlying osteomyelitis or abscess. Minimal arthritis at the ankle and subtalar joint. Chronic changes of denervation atrophy in the foot musculature related to diabetic neuropathy.
--- NOTE | ~2021-08-12 | MR_ITS ---
MRI OF THE BRAIN WITHOUT IV CONTRAST INDICATION: Encephalopathy. COMPARISON: Head CT 08/05/2021. TECHNIQUE: Multiplanar multisequence MR imaging of the brain was obtained without IV contrast. FINDINGS: There is no hydrocephalus, extra-axial surface collection, or herniation. No parenchymal signal abnormality. The major flow voids at the skull base are preserved. There is no acute infarct on diffusion-weighted imaging. There is no intracranial hemorrhage on the gradient recalled echo acquisition. The midline structures are normal. The cerebellar tonsils are normally positioned. The cerebellum and brainstem are normal. There is atlantooccipital assimilation bilaterally. Osseous marrow signal intensity is homogenous. High anterior left frontal scalp hematoma is again noted. MR/MR head/brain wo con IMPRESSION: - No acute intracranial findings. - There is global cerebral volume loss and there is moderate chronic microangiopathy. - High anterior left frontal scalp hematoma is again noted.
--- NOTE | ~2021-08-12 | XR_ITS ---
EXAMINATION: XR FOOT, RIGHT CLINICAL INFORMATION: Heel ulcer. COMPARISON: Radiograph of the right ankle dated from 05/04/2019. TECHNIQUE: AP, lateral, and oblique views of the right foot. FINDINGS: No acute fractures or malalignment. No suspicious cortical erosions or irregularity to suspect the presence of osteomyelitis. Healed bilateral malleolar fractures. Chronic appearing deformity of the fifth metatarsal bone. Plantar calcanei enthesophytes. Diffuse soft tissue thickening, more prominent along the plantar surface of the calcaneus without unexpected radiopaque foreign bodies or subcutaneous air. Diffuse vascular calcifications. XR/XR foot RT 2V IMPRESSION: No suspicious cortical disruption or erosions to suspect osteomyelitis. However, early osteomyelitis can be radiographically occult and if indicated further correlation with an MR of the area of clinical concern is recommended. No acute fractures or malalignment.
--- NOTE | ~2021-08-12 | US_ITS ---
EXAMINATION: ULTRASOUND ARTERIAL DUPLEX LOWER EXTREMITY BILATERAL CLINICAL INFORMATION: Peripheral vascular disease. COMPARISON: None TECHNIQUE: Multiple 2-D grayscale and duplex Doppler ultrasound images of the arteries of the bilateral lower extremities were obtained. FINDINGS: Moderate to severe atherosclerosis is seen in the visualized arteries bilaterally. Peak systolic arterial velocities are as follows in centimeters per second: Common femoral: Right 96. Left 25. Profunda femoral: Right 94. Left 100. Proximal superficial femoral: Right 113. Left 40. Mid superficial femoral: Right 48. Left 27. Distal superficial femoral: Right 29. Left 31. Popliteal: Right 33. Left 33. Posterior tibial: Right 22. Left 22. US/US arterial duplex LE BI IMPRESSION: Asymmetrically diminished arterial velocities in the left common femoral and superficial femoral arteries, but no hemodynamically significant stenosis bilaterally.
[2021-08-12 12:55] VITALS: BP 112/80; BP 189/94; PULSE 120; PULSE 86; RESP 18; TEMP 36.9; O2SAT 95; BMI 26.1
[2021-08-12 13:05] VITALS: TEMP 37.7
--- NOTE | 2021-08-12 13:27 | ED_ITS ---
HPI - General Adult General Chief complaint: Extremity Injury, Lower Stated complaint: LEO FOOT PAIN,? INFECTION,NOT SEEN FOR THIS BEFORE Time Seen by Provider: 08/12/21 13:05 Source: patient and EMS Mode of arrival: EMS Limitations: no limitations History of Present Illness HPI narrative: patient was seen at 14:30 08/12/2021. 76 year old female came in for evaluation of her right foot pain. This is a 76-year-old diabetic female with history of chronic right heel ulceration not healing for few months, came in for increased pain and itching of the wound. No fever or chills. Related Data Home Medications Medication Instructions Recorded Confirmed aspirin 81 mg tablet,delayed 81 mg PO DAILY 05/23/20 08/12/21 release blood sugar diagnostic #10 ea 05/23/20 05/28/21 citalopram 20 mg tablet 20 mg PO DAILY 05/23/20 08/12/21 diltiazem HCl 360 mg capsule,24 360 mg PO DAILY 05/23/20 08/12/21 hr,extended release glipizide 10 mg tablet, extended 10 mg PO DAILY 05/23/20 08/12/21 release 24 hr hydrochlorothiazide 12.5 mg capsule 12.5 mg PO DAILY 05/23/20 08/12/21 lancets 28 gauge #100 ea 05/23/20 05/28/21 levothyroxine 100 mcg tablet 100 mcg PO DAILY 05/23/20 08/12/21 lisinopril 40 mg tablet 40 mg PO DAILY 05/23/20 08/12/21 metformin 500 mg tablet,extended 1,000 mg PO BID 05/23/20 08/12/21 release 24 hr metoprolol succinate 100 mg 100 mg PO DAILY 05/23/20 08/12/21 tablet,extended release 24 hr pregabalin 200 mg capsule 200 mg PO BEDTIME 05/23/20 08/12/21 sitagliptin 100 mg tablet 100 mg PO DAILY 05/23/20 08/12/21 trazodone 50 mg tablet 50 mg PO BEDTIME 05/23/20 08/12/21 atorvastatin 80 mg tablet 1 tab PO DAILY 08/12/21 08/12/21 denosumab 60 mg/mL subcutaneous 60 mg SUBCUT [id number] 08/12/21 08/12/21 syringe (Prolia) insulin glargine 100 unit/mL (3 5 unit SUBCUT BEDTIME 08/12/21 08/12/21 mL) subcutaneous pen (Lantus Solostar U-100 Insulin) melatonin 5 mg tablet 5 mg PO BEDTIME 08/12/21 08/12/21 meloxicam 7.5 mg tablet 1 tab PO DAILY 08/12/21 08/12/21 pregabalin 100 mg capsule 100 mg PO DAILY 08/12/21 08/12/21 Previous Rx's Medication Instructions Recorded tramadol 50 mg tablet 50 mg PO BID PRN #60 tab 01/02/21 omeprazole 20 mg capsule,delayed 20 mg PO BID 14 Days #28 cap 04/12/21 release Allergies Allergy/AdvReac Type Severity Reaction Status Date / Time ibuprofen [From MOTRIN] Allergy Unknown UPSET Verified 08/11/21 14:30 STOMACH Review of Systems Review of Systems: All other systems are reviewed and are negative Constitutional: Reports as per HPI and Reports no additional constitutional complaints Eyes: Reports as per HPI and Reports no additional eye complaints Reports system reviewed and no additional complaints, except as documented Cardiovascular: Reports as per HPI and Reports no additional cardiovascular complaints Respiratory: Reports as per HPI and Reports no additional respiratory complaints Gastrointestinal: Reports as per HPI and Reports no additional gastrointestinal complaints Genitourinary: Reports no additional female genitourinary complaints Musculoskeletal: Reports no additional musculoskeletal complaints Skin/Breast: Reports system reviewed and no additional complaints, except as docu Psychiatric: Reports no additional psychiatric complaints Endocrine: Reports no additional endocrine complaints Hematologic/Lymphatic: Reports no additional hematologic/lymphatic complaints Allergic/Immunologic: Reports no additional allergic/immunologic complaints Reports system reviewed and no additional complaints, except as documented and Reports Abnormal speech present [facility] Past Medical History Medical History Anxiety Asthma Depression Diabetes mellitus Diabetic neuropathy Dysphagia Fibromyalgia GERD (gastroesophageal reflux disease) Hiatal hernia HTN (hypertension) Hx of gastritis Hypercholesterolemia Hypothyroidism IBS (irritable bowel syndrome) Mini stroke Mononeuritis On beta jeannie at home Osteoarthritis Osteoporosis Vitamin B 12 deficiency Surgical History H/O local excision of skin lesion History of ankle surgery History of back surgery History of esophagogastroduodenoscopy (EGD) History of open reduction and internal fixation (ORIF) procedure Hx of hysterectomy Family History Family History Sister Diabetes Social History Social History Household Members: None Housing: Apartment Do you presently have visiting nurse or other home services: Yes Unable to assess alcohol history related to: Unknown Alcohol intake: never Patient Tobacco Use Status: Former Tobacco user Quit Date: >20 yr ago Use of substances other than those prescribed or required for medical reasons: No Have you been hit, kicked, punched, or otherwise hurt by someone within the past year? If so, by whom?: No Do you feel safe in your current relationship?: No Current Relationship Is there a partner from a previous relationship who is making you feel unsafe now?: No Are you made to feel afraid or neglected: No Advance Directives: Yes Advance Directives on File: Yes Advance Directives Date on File: 11/05/20 Do you have thoughts of harming others: None Do you have a plan to hurt others: No Plan Recently lost weight without trying: No How much weight loss: Not applicable Eating poorly because of decreased appetite: No Nutrition screen score: 0 Nutrition Risks: No Nutritional Risk Patient : No : No Poor oral hygiene: No service: No Current occupational status: disabled 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 Blood pressure normal. Heart rate elevated. Respiration rate normal. Temperature normal. Oxygen saturation normal. Appearance: Alert. Oriented X3. No acute distress. Head: Normal external exam. Normocephalic. Atraumatic. No Mello signs noted. No raccoon eyes noted Eyes: PERRLA. EOMI. Conjunctiva and sclera normal. Eyelids normal. ENT: TM's Normal. Pharynx normal. Uvula midline. Moist mucous membranes. No trismus noted. No drooling noted. No muffled voice noted. Neck: Normal inspection. Neck supple. FROM. No adenopathy. Thyroid Normal. No meningeal signs. No neck mass noted. CVS: Normal heart rate and rhythm. Heart sound normal. No murmurs noted. Pulses normal throughout. Respiratory: No respiratory distress. Painless inspiration. Breath sounds normal. No wheezes/rales/rhonchi noted. Chest nontender. No accessory muscle usage noted or decreased air movement noted. Abdomen: Soft and nontender. Bowel sounds normal in all 4 quadrants. No distention noted. No organomegaly noted. No visible injury noted. Back: No CVA tenderness. Full range of motion noted. Skin: Skin warm and dry. Normal skin color. Normal skin turgor. No rashes/lesions/lacerations noted. Extremities: Right foot exam: 3 x 4 cm ulcerative lesion surrounded by area of hotness and redness, no fluctuation, no discharge. Neuro: Oriented X 3. Cranial nerve exam: II-XII are grossly intact No motor deficit. No sensory deficit. Reflexes normal. Course Course Course Narrative: 76-year-old female came in with right foot ulcers and infection, patient is diabetic, x-ray showed no osteomyelitis. Patient meets criteria for SIRS, blood culture and lactic acid was sent, ABx was covered, will admit the patient. Medical Decision Making Lab Data Lab results reviewed: Yes I reviewed the patient's lab results. Result diagrams: 08/12/21 14:16 08/12/21 14:17 Labs: Lab Results 08/12/21 08/12/21 08/12/21 Range/Units 14:16 14:17 14:17 WBC 17.8 H (4.8-10.8) X10*3/uL RBC 3.29 L (4.20-5.50) X10*6/uL Hgb 8.6 L (12.0-16.0) g/dl Hct 27.8 L (37.0-47.0) % MCV 84.5 (80.0-98.0) fL MCH 26.1 L (27.0-33.0) pg MCHC 30.9 L (31.0-35.0) g/dl RDW 15.8 (11.0-16.0) % Plt Count 777 H D (160-400) X10*3/uL MPV 9.6 (9.4-12.3) fL Immature Gran % (Auto) 0.6 H (0.0-0.4) % Neut % (Auto) 66.1 (45-73) % Lymph % (Auto) 23.6 (20-40) % [facility] % (Auto) 8.7 (2-11) % Eos % (Auto) 0.6 (0-4) % Baso % (Auto) 0.4 (0-2) % Lymph # (Auto) 4.2 (1.2-4.9) X10*3/uL [facility] # (Auto) 1.6 H (0.1-1.2) X10*3/uL Eos # (Auto) 0.1 (0.0-0.4) X10*3/uL Baso # (Auto) 0.1 (0.0-0.2) X10*3/uL Abs Immat Gran (auto) 0.11 H (0.00-0.03) X10*3/uL Absolute Neuts (auto) 11.8 H (2.0-8.3) x10*3/uL Absolute Nucleated RBC 0.000 (0.0-0.012) X10*3/uL Nucleated RBC % (auto) 0.0 (0.0-0.2) /100WBC Smear Tech's Comments VERIFIED Sodium 141 (135-145) mmol/L Potassium 4.3 (3.3-5.1) mmol/L Chloride 106 (96-108) mmol/L Carbon Dioxide 25 (22-29) mmol/L Anion Gap 14 (12-20) BUN 13 (9-16) mg/dL Creatinine 0.74 (0.5-1.4) mg/dL Estim Creat Clear Calc 54.8 Estimated GFR > 60 Random Glucose 89 (60-115) mg/dL Lactic Acid (0.5-2.0) mmol/L Calcium 8.7 D (8.4-10.2) mg/dL Total Bilirubin 0.2 (0.0-1.0) mg/dL Direct Bilirubin 0.2 (0.0-0.5) mg/dL AST 10 (5-31) U/L ALT 10 (0-31) U/L Alkaline Phosphatase 125 H (39-117) U/L B-Natriuretic Peptide 89 (<100) pg/mL Total Protein 7.0 (6.5-8.0) g/dL Albumin 3.8 (3.5-5.0) g/dL Lipase 24 (8-78) U/L Urine Color Urine Appearance Urine pH (5.0-8.0) Ur Specific [place] (1.005-1.025) Urine Protein (NEG-TRACE) MG/DL Urine Glucose (UA) (NEG) MG/DL Urine Ketones (NEG) MG/DL Urine Blood (NEG) Urine Nitrite (NEG) Ur Leukocyte Esterase (NEG) Urine RBC (0) /HPF Urine WBC (0-4) /HPF Ur Squamous Epith Cells /LPF Urine Bacteria /LPF Influenza Type A (PCR) (Negative) Influenza Type B (PCR) (Negative) RSV RNA Qual (PCR) (Negative) SARS-CoV-2 RNA (RT-PCR) (Negative) 08/12/21 08/12/21 08/12/21 Range/Units 14:17 14:17 15:42 WBC (4.8-10.8) X10*3/uL RBC (4.20-5.50) X10*6/uL Hgb (12.0-16.0) g/dl Hct (37.0-47.0) % MCV (80.0-98.0) fL MCH (27.0-33.0) pg MCHC (31.0-35.0) g/dl RDW (11.0-16.0) % Plt Count (160-400) X10*3/uL MPV (9.4-12.3) fL Immature Gran % (Auto) (0.0-0.4) % Neut % (Auto) (45-73) % Lymph % (Auto) (20-40) % [facility] % (Auto) (2-11) % Eos % (Auto) (0-4) % Baso % (Auto) (0-2) % Lymph # (Auto) (1.2-4.9) X10*3/uL [facility] # (Auto) (0.1-1.2) X10*3/uL Eos # (Auto) (0.0-0.4) X10*3/uL Baso # (Auto) (0.0-0.2) X10*3/uL Abs Immat Gran (auto) (0.00-0.03) X10*3/uL Absolute Neuts (auto) (2.0-8.3) x10*3/uL Absolute Nucleated RBC (0.0-0.012) X10*3/uL Nucleated RBC % (auto) (0.0-0.2) /100WBC Smear Tech's Comments Sodium (135-145) mmol/L Potassium (3.3-5.1) mmol/L Chloride (96-108) mmol/L Carbon Dioxide (22-29) mmol/L Anion Gap (12-20) BUN (9-16) mg/dL Creatinine (0.5-1.4) mg/dL Estim Creat Clear Calc Estimated GFR Random Glucose (60-115) mg/dL Lactic Acid 1.5 (0.5-2.0) mmol/L Calcium (8.4-10.2) mg/dL Total Bilirubin (0.0-1.0) mg/dL Direct Bilirubin (0.0-0.5) mg/dL AST (5-31) U/L ALT (0-31) U/L Alkaline Phosphatase (39-117) U/L B-Natriuretic Peptide (<100) pg/mL Total Protein (6.5-8.0) g/dL Albumin (3.5-5.0) g/dL Lipase (8-78) U/L Urine Color YELLOW Urine Appearance CLEAR Urine pH 8.0 (5.0-8.0) Ur Specific [place] 1.015 (1.005-1.025) Urine Protein NEG (NEG-TRACE) MG/DL Urine Glucose (UA) NEG (NEG) MG/DL Urine Ketones NEG (NEG) MG/DL Urine Blood NEG (NEG) Urine Nitrite NEG (NEG) Ur Leukocyte Esterase 1+ H (NEG) Urine RBC 0-2 (0) /HPF Urine WBC 0-2 (0-4) /HPF Ur Squamous Epith Cells TRACE /LPF Urine Bacteria TRACE /LPF Influenza Type A (PCR) NEGATIVE (Negative) Influenza Type B (PCR) NEGATIVE (Negative) RSV RNA Qual (PCR) NEGATIVE (Negative) SARS-CoV-2 RNA (RT-PCR) NEGATIVE (Negative) Imaging Data Right foot x-ray: Attestation: I personally reviewed and interpreted this imaging study as follows: Radiologist's impression: No suspicious cortical disruption or erosions to suspect osteomyelitis. However, early osteomyelitis can be radiographically occult and if indicated further correlation with an MR of the area of clinical concern is recommended. Chest x-ray: Attestation: I personally reviewed and interpreted this imaging study as follows: Radiologist's impression: Mild interstitial prominence of uncertain etiology. This could be related with an infectious or inflammatory process of the small airways in the appropriate clinical context. Discharge Plan Discharge Clinical Impression: Cellulitis of foot, right Patient Disposition: Admitted As Inpatient Interventions: Admission Worksheet (ED) Last Done: 08/12/21 20:10 Discharge Date/Time: 08/12/21 20:58
[2021-08-12] MEDS: 0.9 % Sodium Chloride 1,000 ML 999 ML IV (14:15)
[2021-08-12 14:26] LABS: Basophils Absolute Auto 0.1 X10*3/uL (0.0-0.2); Basophils Percent Auto 0.4 % (0-2); Eosinophils Absolute Auto 0.1 X10*3/uL (0.0-0.4); Eosinophils Percent Auto 0.6 % (0-4); Hematocrit 27.8 % (37.0-47.0); Hemoglobin 8.6 g/dl (12.0-16.0); Imm Gran Abs Auto 0.11 X10*3/uL (0.00-0.03); Imm Gran Pct Auto 0.6 % (0.0-0.4); Lymphocytes Absolute Auto 4.2 X10*3/uL (1.2-4.9); Lymphocytes Percent Auto 23.6 % (20-40); MANUAL DIFF FLAG SCAN; Mean Corpuscular HGB Conc 30.9 g/dl (31.0-35.0); Mean Corpuscular Hemoglobin 26.1 pg (27.0-33.0); Mean Corpuscular Volume 84.5 fL (80.0-98.0); Mean Platelet Volume 9.6 fL (9.4-12.3); Monocytes Absolute Auto 1.6 X10*3/uL (0.1-1.2); Monocytes Percent Auto 8.7 % (2-11); Neutrophils Absolute Auto 11.8 x10*3/uL (2.0-8.3); Neutrophils Percent Auto 66.1 % (45-73); Platelet Count 777 X10*3/uL (160-400); Red Blood Count 3.29 X10*6/uL (4.20-5.50); Red Cell Distribution Width 15.8 % (11.0-16.0); SCAN SMEAR FLAG 1; White Blood Count 17.8 X10*3/uL (4.8-10.8)
[2021-08-12 14:38] LABS: Lactic Acid 1.5 mmol/L (0.5-2.0)
[2021-08-12 14:44] LABS: SLIDE REVIEW VERIFIED
[2021-08-12 14:44] LABS: Alanine Aminotransferase 10 U/L (0-31); Albumin Level 3.8 g/dL (3.5-5.0); Alkaline Phosphatase 125 U/L (39-117); Anion Gap 14 (12-20); Aspartate Amino Transferase 10 U/L (5-31); Bilirubin Direct 0.2 mg/dL (0.0-0.5); Bilirubin Total 0.2 mg/dL (0.0-1.0); Blood Urea Nitrogen 13 mg/dL (9-16); Calcium 8.7 mg/dL (8.4-10.2); Carbon Dioxide 25 mmol/L (22-29); Chloride 106 mmol/L (96-108); Creatinine Clr Calc Pharmacy 54.8; Estimated Glomerular Filt Rate > 60; Glucose Random 89 mg/dL (60-115); Lipase 24 U/L (8-78); Potassium 4.3 mmol/L (3.3-5.1); Sodium 141 mmol/L (135-145)
[2021-08-12 14:46] LABS: B Type Natriuretic Peptide 89 pg/mL (<100)
[2021-08-12 15:53] LABS: Appearance Urine CLEAR; Color Urine YELLOW; Glucose Urine UA NEG (NEG); Leukocyte Esterase Urine 1+ (NEG); Nitrite Urine NEG (NEG); Specific Gravity - Urine 1.015 (1.005-1.025); UACC Culture Trigger YES; Urine Blood NEG (NEG); Urine Ketones NEG (NEG); Urine Protein NEG (NEG-TRACE)
[2021-08-12 16:19] LABS: Influenza A PCR NEGATIVE (Negative); Influenza B PCR NEGATIVE (Negative); Resp Syncy Virus RNA Qual PCR NEGATIVE (Negative); SARS COV2 PCR INHOUSE NEGATIVE (Negative)
[2021-08-12 16:33] VITALS: BP 167/86; PULSE 121; RESP 18; TEMP 36.7; O2SAT 98
--- NOTE | 2021-08-12 16:46 | PM.IMHP ---
History of Present Illness Date of Service: 08/12/21 Chief Complaint: sepsis /osteomyelitis 76 year old with diabetes non insulin depedent, HLD controlled with statin, HTN that is is controlled with meds,? GERD,: Patient came to the hospital because having foot pain and swelling of the ankle area And redness. She is poor historian, she says that foot pain and ulcer is there for couple months but she is getting more redness recently and having more pain. in addition patient fell down last week she says she tripped and fell did not loss consciousness has ecchymoses on the phase around the eyes and also a bump in the left frontal area of the skull. Denies any new complaint of chest pain or shortness of breath or abdominal pain or fever or chills or nausea or vomiting Denies any cough Denies any weakness or numbness. Review of Systems Review of Systems: As above. Yes all other systems are reviewed and are negative [facility] Medical History Anxiety Asthma Depression Diabetes mellitus Diabetic neuropathy Dysphagia Fibromyalgia GERD (gastroesophageal reflux disease) Hiatal hernia HTN (hypertension) Hx of gastritis Hypercholesterolemia Hypothyroidism IBS (irritable bowel syndrome) Mini stroke Mononeuritis On beta jeannie at home Osteoarthritis Osteoporosis Vitamin B 12 deficiency Family History Sister Diabetes Surgical History H/O local excision of skin lesion History of ankle surgery History of back surgery History of esophagogastroduodenoscopy (EGD) History of open reduction and internal fixation (ORIF) procedure Hx of hysterectomy Social History Household Members: None Housing: Apartment Do you presently have visiting nurse or other home services: Yes Unable to assess alcohol history related to: Unknown Alcohol intake: never Patient Tobacco Use Status: Former Tobacco user Quit Date: >20 yr ago Use of substances other than those prescribed or required for medical reasons: No Currently Displaying Signs/Symptoms of Drug Intoxication Withdrawal: No Have you been hit, kicked, punched, or otherwise hurt by someone within the past year? If so, by whom?: No Do you feel safe in your current relationship?: No Current Relationship Is there a partner from a previous relationship who is making you feel unsafe now?: No Are you made to feel afraid or neglected: No Advance Directives: Yes Advance Directives on File: Yes Advance Directives Date on File: 11/05/20 Do you have thoughts of harming others: None Do you have a plan to hurt others: No Plan Recently lost weight without trying: No How much weight loss: Not applicable Eating poorly because of decreased appetite: No Nutrition screen score: 0 Nutrition Risks: No Nutritional Risk Patient : No : No Poor oral hygiene: No service: No Current occupational status: disabled 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 Meds Allergies Allergy/AdvReac Type Severity Reaction Status Date / Time ibuprofen [From MOTRIN] Allergy Unknown UPSET Verified 08/11/21 14:30 STOMACH Active Medications: Current Medications Piperacillin Sod/Tazobactam (Sod 3.375 gm/ Sodium Chloride) 50 mls @ 100 mls/hr IV ONCE ONE Stop: 08/12/21 17:02 Vancomycin HCl 1,000 mg/ (Sodium Chloride) 270 mls @ 270 mls/hr IV ONCE ONE Stop: 08/12/21 17:32 Piperacillin Sod/Tazobactam (Sod 3.375 gm/ Sodium Chloride) 50 mls @ 100 mls/hr IV Q6H [facility] Pharmacy Consult (Consult Rx Vancomycin Dosing) 1 each MISCELLANE DAILY PRN PRN Reason: Consult order Pharmacy Consult (Consult Rx Perform Med Rec) 1 each MISCELLANE ONCE PRN PRN Reason: Consult order Sodium Chloride (0.9 % Sodium Chloride Flush 3 Ml Syringe) 3 ml IVFLUSH QSHIFT [facility] Home Medications Medication Instructions Recorded Confirmed Last Taken Type aspirin 81 mg tablet,delayed 81 mg PO DAILY 05/23/20 08/12/21 08/11/21 History release blood sugar diagnostic #10 ea 05/23/20 05/28/21 Unknown History citalopram 20 mg tablet 20 mg PO DAILY 05/23/20 08/12/21 08/11/21 History diltiazem HCl 360 mg capsule,24 360 mg PO DAILY 05/23/20 08/12/21 08/11/21 History hr,extended release glipizide 10 mg tablet, extended 10 mg PO DAILY 05/23/20 08/12/21 08/11/21 History release 24 hr hydrochlorothiazide 12.5 mg capsule 12.5 mg PO DAILY 05/23/20 08/12/21 08/11/21 History lancets 28 gauge #100 ea 05/23/20 05/28/21 Unknown History levothyroxine 100 mcg tablet 100 mcg PO DAILY 05/23/20 08/12/21 08/11/21 History lisinopril 40 mg tablet 40 mg PO DAILY 05/23/20 08/12/21 08/11/21 History metformin 500 mg tablet,extended 1,000 mg PO BID 05/23/20 08/12/21 08/11/21 History release 24 hr metoprolol succinate 100 mg 100 mg PO DAILY 05/23/20 08/12/21 08/11/21 History tablet,extended release 24 hr pregabalin 200 mg capsule 200 mg PO BEDTIME 05/23/20 08/12/21 Unknown History sitagliptin 100 mg tablet 100 mg PO DAILY 05/23/20 08/12/21 08/11/21 History trazodone 50 mg tablet 50 mg PO BEDTIME 05/23/20 08/12/21 08/11/21 History atorvastatin 80 mg tablet 1 tab PO DAILY 08/12/21 08/12/21 08/11/21 History denosumab 60 mg/mL subcutaneous 60 mg SUBCUT [id number] 08/12/21 08/12/21 Unknown History syringe (Prolia) insulin glargine 100 unit/mL (3 5 unit SUBCUT BEDTIME 08/12/21 08/12/21 Unknown History mL) subcutaneous pen (Lantus Solostar U-100 Insulin) melatonin 5 mg tablet 5 mg PO BEDTIME 08/12/21 08/12/21 08/11/21 History meloxicam 7.5 mg tablet 1 tab PO DAILY 08/12/21 08/12/21 Unknown History pregabalin 100 mg capsule 100 mg PO DAILY 08/12/21 08/12/21 Unknown History Physical Exam Vital Signs and Narrative: Vital Signs: Last Vital Signs Temp 98.0 F 08/12/21 16:33 Pulse 121 H 08/12/21 16:33 Resp 18 08/12/21 16:33 BP 167/86 H 08/12/21 16:33 Pulse Ox 98 08/12/21 16:33 BMI result Body Mass Index 26.1 physical exam: Appearance: pleasant bermudian speaking female,Alert.? Oriented X3.? not in distress.? Ecchymosis of forehead and eye area as well as bump in the right frontal area. Eyes: Pupils equal, round and reactive to light.? Sclera nonicteric.? ENT: Pharynx normal.? Moist mucous membranes. cvs: rrr, [id number] . res: clear to auscultation ,no rhonchii or wheezing abd: no rebound or guarding ,nt, bs present. ext pulses present , no cyanosis right foot area : ulcer ,erythema warm, no fluctuation or discharge. neuro: axo3 , nonfocal. Results Labs CBC and Chem 7: 08/13/21 05:19 08/13/21 05:19 Labs: Laboratory Results - last 24 hr 08/12/21 08/12/21 08/12/21 14:16 14:17 14:17 MCV 84.5 MCH 26.1 L MCHC 30.9 L RDW 15.8 Plt Count 777 H D MPV 9.6 Immature Gran % (Auto) 0.6 H Neut % (Auto) 66.1 Lymph % (Auto) 23.6 [place] % (Auto) 8.7 Eos % (Auto) 0.6 Baso % (Auto) 0.4 Lymph # (Auto) 4.2 [place] # (Auto) 1.6 H Eos # (Auto) 0.1 Baso # (Auto) 0.1 Abs Immat Gran (auto) 0.11 H Absolute Neuts (auto) 11.8 H Absolute Nucleated RBC 0.000 Nucleated RBC % (auto) 0.0 Smear Tech's Comments VERIFIED Anion Gap 14 Estim Creat Clear Calc 54.8 Estimated GFR > 60 Random Glucose 89 Lactic Acid Calcium 8.7 D Total Bilirubin 0.2 Direct Bilirubin 0.2 AST 10 ALT 10 Alkaline Phosphatase 125 H B-Natriuretic Peptide 89 Total Protein 7.0 Albumin 3.8 Lipase 24 Urine Color Urine Appearance Urine pH Ur Specific [place] Urine Protein Urine Glucose (UA) Urine Ketones Urine Blood Urine Nitrite Ur Leukocyte Esterase Influenza Type A (PCR) Influenza Type B (PCR) RSV RNA Qual (PCR) SARS-CoV-2 RNA (RT-PCR) 08/12/21 08/12/21 08/12/21 14:17 14:17 15:42 MCV MCH MCHC RDW Plt Count MPV Immature Gran % (Auto) Neut % (Auto) Lymph % (Auto) [place] % (Auto) Eos % (Auto) Baso % (Auto) Lymph # (Auto) [place] # (Auto) Eos # (Auto) Baso # (Auto) Abs Immat Gran (auto) Absolute Neuts (auto) Absolute Nucleated RBC Nucleated RBC % (auto) Smear Tech's Comments Anion Gap Estim Creat Clear Calc Estimated GFR Random Glucose Lactic Acid 1.5 Calcium Total Bilirubin Direct Bilirubin AST ALT Alkaline Phosphatase B-Natriuretic Peptide Total Protein Albumin Lipase Urine Color YELLOW Urine Appearance CLEAR Urine pH 8.0 Ur Specific [place] 1.015 Urine Protein NEG Urine Glucose (UA) NEG Urine Ketones NEG Urine Blood NEG Urine Nitrite NEG Ur Leukocyte Esterase 1+ H Influenza Type A (PCR) NEGATIVE Influenza Type B (PCR) NEGATIVE RSV RNA Qual (PCR) NEGATIVE SARS-CoV-2 RNA (RT-PCR) NEGATIVE Imaging Radiologist's Impressions: Impressions Chest X-Ray 08/12/21 14:00 IMPRESSION: Mild interstitial prominence of uncertain etiology. This could be related with an infectious or inflammatory process of the small airways in the appropriate clinical context. Foot X-Ray 08/12/21 14:00 IMPRESSION: No suspicious cortical disruption or erosions to suspect osteomyelitis. However, early osteomyelitis can be radiographically occult and if indicated further correlation with an MR of the area of clinical concern is recommended. No acute fractures or malalignment. Assessment and Plan (1) Cellulitis of foot, right: Status: Acute 1. Foot cellulitis probably has sepsis sepsis exam completed no lactic acidosis continue vanco and Zosyn will add MRI foot id evaluation wound care 2. Diabetes:fs [facility] 3.HTN--continue home meds HCTZ, Lisinopril, cardizem and metoprolol. BP is normal 4.HLD--continue Lipitor 5.GERD--Omeprazole 6.Hypontyroidism--Levothyroxine med reconcillation. dvt prophylax :s/c heparin Quality Stroke Does the patient have a stroke diagnosis?: No VTE Prior VTE?: No VTE Risk Level:: Medical - moderate - high VTE Device Contraindication: Treatment Not Indicated VTE Drug Contraindication: N/A - Med Ordered
--- NOTE | 2021-08-12 17:01 | PC.NURSE ---
PT PLANNED FOR ADMISSION, SHE PULLED HER IV OUT
[2021-08-12] MEDS: Piperacillin Sodium/Tazobactam 3.375 GM in 0.9 % Sodium Chloride 50 ML IV (17:23)
--- NOTE | 2021-08-12 17:31 | PC.NURSE ---
FAMILY AWARE OF ADMISSION
[2021-08-12 18:00] LABS: Bacteria Urine TRACE /LPF; RBC Urine 0-2 /HPF (0); Squamous Epithelial Cell Urine TRACE /LPF; WBC Urine 0-2 /HPF (0-4)
--- NOTE | 2021-08-12 18:05 | PHA.MEDREC ---
Pharmacy Consult ? Medication Reconciliation Pharmacy has completed the medication reconciliation. Spoke to pt's family member Christofer who verified most of her current med list, had to call [facility] to verify Lantus dose. Kiley Mariano RP
[2021-08-12] MEDS: vancomycin HCL 1,000 MG in 0.9 % Sodium Chloride 250 ML 270 MG IV (18:34)
[2021-08-12] MEDS: Heparin Sodium,Porcine 5,000 UNIT/ML VIAL 5000 UNIT SUBCUT (18:34)
[2021-08-12 20:00] VITALS: BP 179/100; PULSE 116; RESP 17; TEMP 36.9; O2SAT 99
[2021-08-12 20:55] LABS: Glucose, Whole Blood 92 mg/dL (60-115)
[2021-08-12] MEDS: Melatonin 3 MG TABLET 6 MG PO (21:41)
[2021-08-12] MEDS: NaPROXEN 250 MG TABLET PO (21:41)
[2021-08-12] MEDS: Pregabalin 200 MG CAPSULE PO (21:41)
[2021-08-12] MEDS: traZODone HCL 50 MG TABLET PO (21:41)
[2021-08-13] VITALS: BP 129/82; PULSE 110; RESP 16; TEMP 36.7; O2SAT 96
[2021-08-13] MEDS: 0.9 % Sodium Chloride Flush 3 ML SYRINGE IVFLUSH ×4 (00:11→21:21)
[2021-08-13] MEDS: Piperacillin Sodium/Tazobactam 3.375 GM in 0.9 % Sodium Chloride 50 ML IV ×5 (00:11→23:43)
[2021-08-13] MEDS: Heparin Sodium,Porcine 5,000 UNIT/ML VIAL 5000 UNIT SUBCUT (00:11)
[2021-08-13 03:35] VITALS: BP 118/68; PULSE 98; RESP 16; TEMP 36.4; O2SAT 96
[2021-08-13] MEDS: Omeprazole 20 MG CAPSULE.DR PO ×2 (05:45→16:44)
[2021-08-13] MEDS: Levothyroxine Sodium 100 MCG TABLET PO (05:45)
[2021-08-13 05:53] LABS: MANUAL DIFF FLAG NO
[2021-08-13 06:03] LABS: Basophils Absolute Auto 0.1 X10*3/uL (0.0-0.2); Basophils Percent Auto 0.5 % (0-2); Eosinophils Absolute Auto 0.1 X10*3/uL (0.0-0.4); Eosinophils Percent Auto 0.9 % (0-4); Hemoglobin 7.6 g/dl (12.0-16.0); Imm Gran Abs Auto 0.06 X10*3/uL (0.00-0.03); Imm Gran Pct Auto 0.5 % (0.0-0.4); Lymphocytes Percent Auto 26.1 % (20-40); Mean Corpuscular HGB Conc 30.4 g/dl (31.0-35.0); Mean Corpuscular Hemoglobin 26.1 pg (27.0-33.0); Mean Corpuscular Volume 85.9 fL (80.0-98.0); Monocytes Absolute Auto 1.1 X10*3/uL (0.1-1.2); Monocytes Percent Auto 9.3 % (2-11); Neutrophils Absolute Auto 7.1 x10*3/uL (2.0-8.3); Neutrophils Percent Auto 62.7 % (45-73); Platelet Count 669 X10*3/uL (160-400); Red Blood Count 2.91 X10*6/uL (4.20-5.50); Red Cell Distribution Width 15.9 % (11.0-16.0); White Blood Count 11.4 X10*3/uL (4.8-10.8)
[2021-08-13 06:22] LABS: Anion Gap 12 (12-20); Blood Urea Nitrogen 10 mg/dL (9-16); Calcium 7.7 mg/dL (8.4-10.2); Carbon Dioxide 22 mmol/L (22-29); Chloride 112 mmol/L (96-108); Estimated Glomerular Filt Rate > 60; Glucose Random 92 mg/dL (60-115); Sodium 142 mmol/L (135-145)
[2021-08-13] MEDS: vancomycin HCL 500 MG in 0.9 % Sodium Chloride 100 ML 110 MG IV ×2 (06:57→19:50)
[2021-08-13 07:43] LABS: Glucose, Whole Blood 101 mg/dL (60-115)
--- NOTE | 2021-08-13 07:56 | HO.PM.IMPN ---
Subjective Subjective Date of Service: 08/13/21 Interval History: dm foot ulcer Review of Systems still has heel pain and erythema Denies any chest pain or shortness of breath or abdominal pain or fever chills or cough or phlegm. Physical Exam Vital Signs: Vital Signs: Last Vital Signs Temp 97.5 F 08/13/21 03:35 Pulse 98 08/13/21 03:35 Resp 16 08/13/21 03:35 BP 118/68 08/13/21 03:35 Pulse Ox 96 08/13/21 03:35 BMI result Body Mass Index 26.1 Appearance: pleasant tuvaluan speaking female,Alert.? Oriented X3.? not in distress.? ? Ecchymosis of forehead and eye area as well as bump in frontal forhead area. Eyes: Pupils equal, round and reactive to light.? Sclera nonicteric.? ENT: Pharynx normal.? Moist mucous membranes. cvs: rrr, [id number] . res: clear to auscultation ,no rhonchii or wheezing abd: no rebound or guarding ,nt, bs present. ext pulses present , no cyanosis right foot heel area : ulcer ,erythema warm,? no? fluctuation or discharge. neuro: axo3 , nonfocal. Objective Data Active Medications Atorvastatin Calcium (Atorvastatin Calcium 80 Mg Tablet) 80 mg PO DAILY [facility] Dextrose (Dextrose 50 % 25 Gm/50 Ml Vial) 25 gm IVPUSH Q15M PRN; Protocol PRN Reason: per Hypoglycemia Standing Ord. Diltiazem HCl (Diltiazem Hcl Cd 180 Mg Cap.Er.24h) 360 mg PO DAILY [facility]; Protocol Escitalopram Oxalate (Escitalopram Oxalate 10 Mg Tablet) 10 mg PO DAILY [facility] Glipizide (Glipizide Xl 10 Mg Tab.Er.24) 10 mg PO DAILY [facility] Glucose (Glucose Gel 15 Gm Gel..Gram.) 15 gm PO Q15M PRN; Protocol PRN Reason: per Hypoglycemia Standing Ord. Hydrochlorothiazide (Hydrochlorothiazide 12.5 Mg Tablet) 12.5 mg PO DAILY [facility]; Protocol Piperacillin Sod/Tazobactam (Sod 3.375 gm/ Sodium Chloride) 50 mls @ 100 mls/hr IV Q6H [facility] Last Infusion: 08/13/21 06:58 Dose: 0 mls/hr Documented by: AMBROSIO Vancomycin HCl 500 mg/ Sodium (Chloride) 110 mls @ 110 mls/hr IV Q12H [facility] Last Admin: 08/13/21 06:57 Dose: 110 mls/hr Documented by: AMBROSIO Insulin Glargine (Insulin Glargine,Hum.Rec.Anlog 100 Unit/Ml 10 Ml Vial) 5 unit SUBCUT BEDTIME [facility] Last Admin: 08/12/21 21:14 Dose: Not Given Documented by: AMBROSIO Non-Admin Reason: Physician Held Med Comments: blood sugar is 92 Insulin Human Lispro (Insulin Lispro 100 Unit/Ml 3 Ml Vial) 0 unit SUBCUT QIDACHS [facility]; Protocol Last Admin: 08/13/21 07:24 Dose: Not Given Documented by: KAILEY Non-Admin Reason: No Insulin Coverage Levothyroxine Sodium (Levothyroxine Sodium 100 Mcg Tablet) 100 mcg PO DAILY@0600 [facility] Last Admin: 08/13/21 05:45 Dose: 100 mcg Documented by: AMBROSIO Melatonin (Melatonin 3 Mg Tablet) 6 mg PO BEDTIME [facility] Last Admin: 08/12/21 21:41 Dose: 6 mg Documented by: AMBROSIO Metoprolol Succinate (Metoprolol Succinate Er 100 Mg Tab.Er.24h) 100 mg PO DAILY [facility]; Protocol Omeprazole (Omeprazole 20 Mg Capsule.) 20 mg PO BID@0630,1630 [facility] Last Admin: 08/13/21 05:45 Dose: 20 mg Documented by: AMBROSIO Pharmacy Consult (Consult Rx Vancomycin Dosing) 1 each MISCELLANE DAILY PRN PRN Reason: Consult order Pharmacy Consult (Consult Rx Perform Med Rec) 1 each MISCELLANE ONCE PRN PRN Reason: Consult order Pregabalin (Pregabalin 100 Mg Capsule) 100 mg PO DAILY [facility] Pregabalin (Pregabalin 200 Mg Capsule) 200 mg PO BEDTIME [facility] Last Admin: 08/12/21 21:41 Dose: 200 mg Documented by: AMBROSIO Sodium Chloride (0.9 % Sodium Chloride Flush 3 Ml Syringe) 3 ml IVFLUSH QSHIFT [facility] Last Admin: 08/13/21 00:11 Dose: 3 ml Documented by: AMBROSIO Trazodone HCl (Trazodone Hcl 50 Mg Tablet) 50 mg PO BEDTIME [facility] Last Admin: 08/12/21 21:41 Dose: 50 mg Documented by: AMBROSIO Labs CBC & Chem 7: 08/13/21 07:54 08/13/21 05:19 Labs: Laboratory Results - last 24 hr 08/12/21 08/12/21 08/12/21 14:16 14:17 14:17 MCV 84.5 MCH 26.1 L MCHC 30.9 L RDW 15.8 Plt Count 777 H D MPV 9.6 Immature Gran % (Auto) 0.6 H Neut % (Auto) 66.1 Lymph % (Auto) 23.6 [place] % (Auto) 8.7 Eos % (Auto) 0.6 Baso % (Auto) 0.4 Lymph # (Auto) 4.2 [place] # (Auto) 1.6 H Eos # (Auto) 0.1 Baso # (Auto) 0.1 Abs Immat Gran (auto) 0.11 H Absolute Neuts (auto) 11.8 H Absolute Nucleated RBC 0.000 Nucleated RBC % (auto) 0.0 Smear Tech's Comments VERIFIED Anion Gap 14 Estim Creat Clear Calc 54.8 Estimated GFR > 60 POC Glucose Random Glucose 89 Lactic Acid Calcium 8.7 D Total Bilirubin 0.2 Direct Bilirubin 0.2 AST 10 ALT 10 Alkaline Phosphatase 125 H B-Natriuretic Peptide 89 Total Protein 7.0 Albumin 3.8 Lipase 24 Urine Color Urine Appearance Urine pH Ur Specific Alpha Urine Protein Urine Glucose (UA) Urine Ketones Urine Blood Urine Nitrite Ur Leukocyte Esterase Urine RBC Urine WBC Ur Squamous Epith Cells Urine Bacteria Influenza Type A (PCR) Influenza Type B (PCR) RSV RNA Qual (PCR) SARS-CoV-2 RNA (RT-PCR) 08/12/21 08/12/21 08/12/21 14:17 14:17 15:42 MCV MCH MCHC RDW Plt Count MPV Immature Gran % (Auto) Neut % (Auto) Lymph % (Auto) [place] % (Auto) Eos % (Auto) Baso % (Auto) Lymph # (Auto) [place] # (Auto) Eos # (Auto) Baso # (Auto) Abs Immat Gran (auto) Absolute Neuts (auto) Absolute Nucleated RBC Nucleated RBC % (auto) Smear Tech's Comments Anion Gap Estim Creat Clear Calc Estimated GFR POC Glucose Random Glucose Lactic Acid 1.5 Calcium Total Bilirubin Direct Bilirubin AST ALT Alkaline Phosphatase B-Natriuretic Peptide Total Protein Albumin Lipase Urine Color YELLOW Urine Appearance CLEAR Urine pH 8.0 Ur Specific Alpha 1.015 Urine Protein NEG Urine Glucose (UA) NEG Urine Ketones NEG Urine Blood NEG Urine Nitrite NEG Ur Leukocyte Esterase 1+ H Urine RBC 0-2 Urine WBC 0-2 Ur Squamous Epith Cells TRACE Urine Bacteria TRACE Influenza Type A (PCR) NEGATIVE Influenza Type B (PCR) NEGATIVE RSV RNA Qual (PCR) NEGATIVE SARS-CoV-2 RNA (RT-PCR) NEGATIVE 08/12/21 08/13/21 08/13/21 20:51 05:19 05:19 MCV 85.9 MCH 26.1 L MCHC 30.4 L RDW 15.9 Plt Count 669 H MPV 10.0 Immature Gran % (Auto) 0.5 H Neut % (Auto) 62.7 Lymph % (Auto) 26.1 [place] % (Auto) 9.3 Eos % (Auto) 0.9 Baso % (Auto) 0.5 Lymph # (Auto) 3.0 [place] # (Auto) 1.1 Eos # (Auto) 0.1 Baso # (Auto) 0.1 Abs Immat Gran (auto) 0.06 H Absolute Neuts (auto) 7.1 Absolute Nucleated RBC 0.000 Nucleated RBC % (auto) 0.0 Smear Tech's Comments Anion Gap 12 Estim Creat Clear Calc 58.0 Estimated GFR > 60 POC Glucose 92 Random Glucose 92 Lactic Acid Calcium 7.7 L D Total Bilirubin Direct Bilirubin AST ALT Alkaline Phosphatase B-Natriuretic Peptide Total Protein Albumin Lipase Urine Color Urine Appearance Urine pH Ur Specific Alpha Urine Protein Urine Glucose (UA) Urine Ketones Urine Blood Urine Nitrite Ur Leukocyte Esterase Urine RBC Urine WBC Ur Squamous Epith Cells Urine Bacteria Influenza Type A (PCR) Influenza Type B (PCR) RSV RNA Qual (PCR) SARS-CoV-2 RNA (RT-PCR) 08/13/21 07:22 MCV MCH MCHC RDW Plt Count MPV Immature Gran % (Auto) Neut % (Auto) Lymph % (Auto) [place] % (Auto) Eos % (Auto) Baso % (Auto) Lymph # (Auto) [place] # (Auto) Eos # (Auto) Baso # (Auto) Abs Immat Gran (auto) Absolute Neuts (auto) Absolute Nucleated RBC Nucleated RBC % (auto) Smear Tech's Comments Anion Gap Estim Creat Clear Calc Estimated GFR POC Glucose 101 Random Glucose Lactic Acid Calcium Total Bilirubin Direct Bilirubin AST ALT Alkaline Phosphatase B-Natriuretic Peptide Total Protein Albumin Lipase Urine Color Urine Appearance Urine pH Ur Specific Alpha Urine Protein Urine Glucose (UA) Urine Ketones Urine Blood Urine Nitrite Ur Leukocyte Esterase Urine RBC Urine WBC Ur Squamous Epith Cells Urine Bacteria Influenza Type A (PCR) Influenza Type B (PCR) RSV RNA Qual (PCR) SARS-CoV-2 RNA (RT-PCR) Assessment and Plan (1) Cellulitis of foot, right: Status: Acute Assessment and Plan: 1. ? Foot cellulitis: sepsis resolving toxic metabolic encephalopathy improving -hold trazodone /pregabalin ?no lactic acidosis ?continue vanco and Zosyn, vanco trough ?added MRI foot ?id evaluation ?wound care 2. Diabetes:fs wth covereage 3.HTN--continue home meds HCTZ, Lisinopril, cardizem and metoprolol. BP is normal 4.HLD--continue Lipitor 5.GERD--Omeprazole 6.Hypontyroidism--Levothyroxine 7. Normochromic anemia: Question if drop of H&H delusional due to fluid patient denies any blood in the stool or melena history iron studies , b12 and folate levels , fobt med reconcillation. dvt prophylax :s/c heparin Quality Stroke Does the patient have a stroke diagnosis?: No VTE Prior VTE?: No VTE Risk Level:: Medical - moderate - high VTE Device Contraindication: Treatment Not Indicated VTE Drug Contraindication: N/A - Med Ordered
[2021-08-13 08:00] VITALS: BP 137/71; PULSE 95; RESP 16; TEMP 36.4; O2SAT 97
[2021-08-13 08:34] LABS: Hematocrit 26.4 % (37.0-47.0); Hemoglobin 7.9 g/dl (12.0-16.0)
[2021-08-13 08:50] LABS: Iron 14 mcg/dL (30-160); Percent Iron Saturation 5 % (15-50); Total Iron Binding Capacity 281 mcg/dL (228-428); Unsaturated Iron Binding 267 ug/dL
[2021-08-13 09:42] LABS: Folate 19.3 ng/mL (> or = 4.0); Vitamin B12 576 pg/mL (200-900)
--- NOTE | 2021-08-13 11:33 | PC.NURSE ---
0800 pt difficult to arouse , made aware and at bedside , pt awakens to hard stimulus . pt oob to chair 3 assist - pt offering no assistance . new order for mri of brain and foot . pt son lamberto aware , pt unable to take AM meds , aware .
[2021-08-13 12:23] LABS: Glucose, Whole Blood 96 mg/dL (60-115)
[2021-08-13] MEDS: dilTIAZem HCL CD 180 MG CAP.ER.24H 360 MG PO (12:24)
[2021-08-13] MEDS: Metoprolol Succinate ER 100 MG TAB.ER.24H PO (12:24)
[2021-08-13] MEDS: hydroCHLOROthiazide 12.5 MG TABLET PO (12:24)
--- NOTE | 2021-08-13 12:28 | PC.NURSE ---
1230, pt now awake, alert , and eating lunch with no difficulties
[2021-08-13 12:38] VITALS: BP 174/93; PULSE 106; RESP 19; TEMP 36.7; O2SAT 98
--- NOTE | 2021-08-13 14:36 | PC.NURSE ---
Skin/wound care assessment completed. Patient has cellulitis of right foot/lower leg with eschar on a diabetic heel ulcer. Dry, flaky skin on feeet. Also has a diabetic ulcer to left 2nd toe with eschar. Betadine applied to both wounds and the heel covered with foam dressing for protection. Bruising to face from a fall and to hip.
[2021-08-13 15:16] VITALS: BP 173/77; PULSE 90; RESP 19; TEMP 36.4; O2SAT 99
--- NOTE | 2021-08-13 15:27 | MHC.CM.PN ---
IMM 08/13/21, EMR REVIEWED, PT ADMITTED W/OSTEOMYELITIS, CM MET W/PT VIA CMA, PT REPORTS SHE LVES ALONE, HAS A WALKER, CANE AND DIABETIC SUPPLIES, HAS 4 [employer] IN [employer] 7 DAYS A WEEK AND DAILY VNA, PT IS UNSURE OF NAME OF VNA, PT CONCERNED ABOUT HER FOOT AND NEEDING TX, PT AGREEABLE TO STR AND REFERRAL WILL BE PLACED FOR [facility] PER PT PREFERENCE, PCP AT [facility], CM VAT PACKER TO VERIFY WHICH PCP, PT HAS A HCP ON FILE FROM PREVIOUS VISIT. D/C PLAN: STR AND POSSIBLE IV ABX, [facility] FOR BLS TRANSPORT
--- NOTE | 2021-08-13 15:29 | MHC.CLN ---
NUTRITION NUTRITION CONSULT DUE TO SKIN INTEGRITY. WOUNDS ARE DIABETIC ULCERS, NOT PRESSURE INJURIES. NO ADDITIONAL NUTRITION INTERVENTIONS AT THIS TIME.
[2021-08-13 16:40] LABS: Glucose, Whole Blood 176 mg/dL (60-115)
[2021-08-13] MEDS: Insulin Lispro 100 UNIT/ML 3 ML VIAL SUBCUT ×2 (16:44→21:20)
[2021-08-13 19:24] VITALS: BP 141/65; PULSE 71; RESP 16; TEMP 36.5; O2SAT 96
[2021-08-13 20:56] LABS: Glucose, Whole Blood 233 mg/dL (60-115)
[2021-08-13] MEDS: Acetaminophen 325 MG TABLET 650 MG PO (21:20)
[2021-08-13] MEDS: Melatonin 3 MG TABLET 6 MG PO (21:20)
[2021-08-13] MEDS: Insulin Glargine,Hum.rec.anlog 100 UNIT/ML 10 ML VIAL SUBCUT (21:21)
[2021-08-14] VITALS (9 sets, daily range): BP systolic 119–187; BP diastolic 64–95; PULSE 76–97; RESP 16–20; TEMP 36.2–37; O2SAT 98–100
[2021-08-14 05:10] LABS: Hematocrit 27.9 % (37.0-47.0); Hemoglobin 8.3 g/dl (12.0-16.0); Mean Corpuscular HGB Conc 29.7 g/dl (31.0-35.0); Mean Corpuscular Hemoglobin 25.5 pg (27.0-33.0); Mean Corpuscular Volume 85.8 fL (80.0-98.0); Mean Platelet Volume 11.8 fL (9.4-12.3); Platelet Count 583 X10*3/uL (160-400); Red Blood Count 3.25 X10*6/uL (4.20-5.50); Red Cell Distribution Width 16.1 % (11.0-16.0)
[2021-08-14 05:24] LABS: Anion Gap 14 (12-20); Blood Urea Nitrogen 11 mg/dL (9-16); Calcium 8.2 mg/dL (8.4-10.2); Carbon Dioxide 22 mmol/L (22-29); Chloride 109 mmol/L (96-108); Creatinine Clr Calc Pharmacy 49.5; Estimated Glomerular Filt Rate > 60; Glucose Random 170 mg/dL (60-115); Potassium 4.4 mmol/L (3.3-5.1); Sodium 141 mmol/L (135-145)
[2021-08-14 05:28] LABS: Vancomycin Trough 12.8 mcg/mL (10.0-20.0)
[2021-08-14] MEDS: Levothyroxine Sodium 100 MCG TABLET PO (05:30)
[2021-08-14] MEDS: Omeprazole 20 MG CAPSULE.DR PO (05:30)
[2021-08-14] MEDS: Piperacillin Sodium/Tazobactam 3.375 GM in 0.9 % Sodium Chloride 50 ML IV ×3 (05:30→16:35)
[2021-08-14] MEDS: vancomycin HCL 500 MG in 0.9 % Sodium Chloride 100 ML 110 MG IV (06:31)
[2021-08-14 07:43] LABS: Glucose, Whole Blood 187 mg/dL (60-115)
[2021-08-14] MEDS: dilTIAZem HCL CD 180 MG CAP.ER.24H 360 MG PO (09:15)
[2021-08-14] MEDS: glipiZIDE XL 10 MG TAB.ER.24 PO (09:16)
[2021-08-14] MEDS: Metoprolol Succinate ER 100 MG TAB.ER.24H PO (09:16)
[2021-08-14] MEDS: hydroCHLOROthiazide 12.5 MG TABLET PO (09:16)
[2021-08-14] MEDS: Atorvastatin Calcium 80 MG TABLET PO (09:17)
[2021-08-14] MEDS: Escitalopram Oxalate 10 MG TABLET PO (09:17)
[2021-08-14] MEDS: Insulin Lispro 100 UNIT/ML 3 ML VIAL SUBCUT ×2 (09:17→12:25)
[2021-08-14] MEDS: Acetaminophen 325 MG TABLET 650 MG PO ×2 (09:21→16:40)
[2021-08-14] MEDS: 0.9 % Sodium Chloride Flush 3 ML SYRINGE IVFLUSH ×3 (09:22→21:25)
--- NOTE | 2021-08-14 09:41 | P.PNIM_ITS ---
Subjective Subjective Date of Service: 08/14/21 Interval History: dm foot ulcer Review of Systems still has mild heel erythema foot heel ulcer unchanged Physical Exam Vital Signs: Vital Signs: Last Vital Signs Temp 98.2 F 08/14/21 07:41 Pulse 88 08/14/21 09:16 Resp 18 08/14/21 07:41 BP 187/80 H 08/14/21 09:16 Pulse Ox 100 08/14/21 07:41 BMI result Body Mass Index 26.1 physical exam: ?Appearance: pleasant northern irish speaking female,Alert.? Oriented X3.? not in dis tress.? ? Ecchymosis of forehead and eye area as well as bump in? frontal forhead area. cvs: rrr, [id number] . res: clear to auscultation ,no rhonchii or wheezing abd: no rebound or guarding ,nt, bs present. ext pulses present , no cyanosis right foot? heel area : ulcer/echcar similar as admission, still has mild erythema,? no? fluctuation or discharge. d/w wound nurse -mri shows superficial wound , but diffcult to stage due to eshcar neuro: axo3 , nonfocal. Objective Data Active Medications Acetaminophen (Acetaminophen 325 Mg Tablet) 650 mg PO Q6H PRN PRN Reason: Pain, Mild (Pain Scale 1-3) Last Admin: 08/14/21 09:21 Dose: 650 mg Documented by: KENTON Atorvastatin Calcium (Atorvastatin Calcium 80 Mg Tablet) 80 mg PO DAILY [facility] Last Admin: 08/14/21 09:17 Dose: 80 mg Documented by: KENTON Dextrose (Dextrose 50 % 25 Gm/50 Ml Vial) 25 gm IVPUSH Q15M PRN; Protocol PRN Reason: per Hypoglycemia Standing Ord. Diltiazem HCl (Diltiazem Hcl Cd 180 Mg Cap.Er.24h) 360 mg PO DAILY [facility]; Protocol Last Admin: 08/14/21 09:15 Dose: 360 mg Documented by: KENTON Escitalopram Oxalate (Escitalopram Oxalate 10 Mg Tablet) 10 mg PO DAILY [facility] Last Admin: 08/14/21 09:17 Dose: 10 mg Documented by: KENTON Glipizide (Glipizide Xl 10 Mg Tab.Er.24) 10 mg PO DAILY [facility] Last Admin: 08/14/21 09:16 Dose: 10 mg Documented by: KENTON Glucose (Glucose Gel 15 Gm Gel..Gram.) 15 gm PO Q15M PRN; Protocol PRN Reason: per Hypoglycemia Standing Ord. Hydrochlorothiazide (Hydrochlorothiazide 12.5 Mg Tablet) 12.5 mg PO DAILY [facility]; Protocol Last Admin: 08/14/21 09:16 Dose: 12.5 mg Documented by: KENTON Piperacillin Sod/Tazobactam (Sod 3.375 gm/ Sodium Chloride) 50 mls @ 100 mls/hr IV Q6H [facility] Last Infusion: 08/14/21 06:30 Dose: 0 mls/hr Documented by: SAV Vancomycin HCl 500 mg/ Sodium (Chloride) 110 mls @ 110 mls/hr IV Q12H [facility] Last Admin: 08/14/21 06:31 Dose: 110 mls/hr Documented by: SAV Insulin Glargine (Insulin Glargine,Hum.Rec.Anlog 100 Unit/Ml 10 Ml Vial) 5 unit SUBCUT BEDTIME [facility] Last Admin: 08/13/21 21:21 Dose: 5 unit Documented by: SAV Insulin Human Lispro (Insulin Lispro 100 Unit/Ml 3 Ml Vial) 0 unit SUBCUT QIDACHS [facility]; Protocol Last Admin: 08/14/21 09:17 Dose: 2 unit Documented by: KENTON Levothyroxine Sodium (Levothyroxine Sodium 100 Mcg Tablet) 100 mcg PO DAILY@0600 [facility] Last Admin: 08/14/21 05:30 Dose: 100 mcg Documented by: SAV Melatonin (Melatonin 3 Mg Tablet) 6 mg PO BEDTIME [facility] Last Admin: 08/13/21 21:20 Dose: 6 mg Documented by: SAV Metoprolol Succinate (Metoprolol Succinate Er 100 Mg Tab.Er.24h) 100 mg PO DAILY [facility]; Protocol Last Admin: 08/14/21 09:16 Dose: 100 mg Documented by: KENTON Omeprazole (Omeprazole 20 Mg Capsule.) 20 mg PO BID@0630,1630 [facility] Last Admin: 08/14/21 05:30 Dose: 20 mg Documented by: SAV Pharmacy Consult (Consult Rx Vancomycin Dosing) 1 each MISCELLANE DAILY PRN PRN Reason: Consult order Pharmacy Consult (Consult Rx Perform Med Rec) 1 each MISCELLANE ONCE PRN PRN Reason: Consult order Pregabalin (Pregabalin 100 Mg Capsule) 100 mg PO DAILY [facility] Last Admin: 08/13/21 10:03 Dose: Not Given Documented by: KAILEY Non-Admin Reason: lethargic Pregabalin (Pregabalin 200 Mg Capsule) 200 mg PO BEDTIME [facility] Last Admin: 08/12/21 21:41 Dose: 200 mg Documented by: AMBROSIO Sodium Chloride (0.9 % Sodium Chloride Flush 3 Ml Syringe) 3 ml IVFLUSH QSHIFT [facility] Last Admin: 08/14/21 09:22 Dose: 3 ml Documented by: KENTON Trazodone HCl (Trazodone Hcl 50 Mg Tablet) 50 mg PO BEDTIME [facility] Last Admin: 08/12/21 21:41 Dose: 50 mg Documented by: AMBROSIO Labs CBC & Chem 7: 08/14/21 04:45 08/14/21 04:45 Labs: Laboratory Results - last 24 hr 08/13/21 08/13/21 08/13/21 07:54 12:18 16:28 MCV MCH MCHC RDW Plt Count MPV Absolute Nucleated RBC Nucleated RBC % (auto) Anion Gap Estim Creat Clear Calc Estimated GFR POC Glucose 96 176 H Random Glucose Calcium Vitamin B12 576 Folate 19.3 Vancomycin Trough 08/13/21 08/14/21 08/14/21 20:44 04:45 04:45 MCV 85.8 MCH 25.5 L MCHC 29.7 L RDW 16.1 H Plt Count 583 H MPV 11.8 Absolute Nucleated RBC 0.000 Nucleated RBC % (auto) 0.0 Anion Gap 14 Estim Creat Clear Calc 49.5 Estimated GFR > 60 POC Glucose 233 H Random Glucose 170 H Calcium 8.2 L D Vitamin B12 Folate Vancomycin Trough 08/14/21 08/14/21 04:45 07:39 MCV MCH MCHC RDW Plt Count MPV Absolute Nucleated RBC Nucleated RBC % (auto) Anion Gap Estim Creat Clear Calc Estimated GFR POC Glucose 187 H Random Glucose Calcium Vitamin B12 Folate Vancomycin Trough 12.8 Microbiology Microbiology Results: Microbiology 08/12/21 14:31 Blood Culture - Preliminary Blood - Venous No growth after 24 hours. 08/12/21 14:18 Blood Culture - Preliminary Blood - Venous No growth after 24 hours. 08/12/21 Unknown Urine Culture - Preliminary Urine clean catch - Urine castillo top No growth to date. Assessment and Plan (1) Cellulitis of foot, right: Status: Acute (2) Anemia in chronic kidney disease: Status: Acute Assessment and Plan: 1. ? Foot cellulitis: sepsis resolved toxic metabolic encephalopathy improved-hold trazodone /pregabalin ?no lactic acidosis blood culture prelim neg@24hrs off vanco and continue Zosyn ? MRI foot:no foot osteo, shows superficial skin wound ?id evaluation ?wound care 2. Diabetes:fs wth covereage. 3.HTN--continue home meds HCTZ, Lisinopril, cardizem and metoprolol. BP is normal. 4.HLD--continue Lipitor. 5.GERD--Omeprazole. 6.Hypontyroidism--Levothyroxine. 7. ? Normochromic anemia:? Question if drop of H&H delusional due to fluid ?patient denies? any blood in the stool or melena history h/h improving iron studies-iron and ironsats low , tibc /iron sats normal , b12 and folate levels normal, fobt Gi eval for anemia ? Iron def , also on AC dvt prophylax :s/c heparin Quality Stroke Does the patient have a stroke diagnosis?: No VTE Prior VTE?: No VTE Risk Level:: Medical - moderate - high VTE Device Contraindication: Treatment Not Indicated VTE Drug Contraindication: N/A - Med Ordered
--- NOTE | 2021-08-14 10:45 | PM.CNGS ---
History of Present Illness Consult details Consult date: 08/14/21 Narrative: 76-year-old female patient presenting with an area of skin necrosis involving the right heel. She has a history of diabetes mellitus and was previously evaluated by Dr. Ravi vascular surgery. Patient reported increased foot pain and return to the emergency department for further evaluation. Patient feels the foot has been getting redder with more discomfort. Noninvasive vascular studies have been ordered as an outpatient but have not yet been completed. Review of Systems Review of Systems: Yes all other systems are reviewed and are negative Cardiovascular: Cardiovascular: Denies chest pain and Reports pedal edema Respiratory: Respiratory: Denies chest congestion and Denies cough Musculoskeletal: Musculoskeletal: Reports as per HPI Integumentary/Breasts: Skin/Breast: Reports as per HPI Hematologic/Lymphatic: Comments: Chronic anemia PMFSH Past Medical History Medical History Anxiety Asthma Depression Diabetes mellitus Diabetic neuropathy Dysphagia Fibromyalgia GERD (gastroesophageal reflux disease) Hiatal hernia HTN (hypertension) Hx of gastritis Hypercholesterolemia Hypothyroidism IBS (irritable bowel syndrome) Mini stroke Mononeuritis On beta jeannie at home Osteoarthritis Osteoporosis Vitamin B 12 deficiency Family History Family History Sister Diabetes Surgical History Surgical History H/O local excision of skin lesion History of ankle surgery History of back surgery History of esophagogastroduodenoscopy (EGD) History of open reduction and internal fixation (ORIF) procedure Hx of hysterectomy Social History Social History Household Members: None Housing: Apartment Do you presently have visiting nurse or other home services: Yes Unable to assess alcohol history related to: Unknown Alcohol intake: never Patient Tobacco Use Status: Former Tobacco user Quit Date: >20 yr ago Use of substances other than those prescribed or required for medical reasons: No Currently Displaying Signs/Symptoms of Drug Intoxication Withdrawal: No Have you been hit, kicked, punched, or otherwise hurt by someone within the past year? If so, by whom?: No Do you feel safe in your current relationship?: No Current Relationship Is there a partner from a previous relationship who is making you feel unsafe now?: No Are you made to feel afraid or neglected: No Advance Directives: Yes Advance Directives on File: Yes Advance Directives Date on File: 11/05/20 Do you have thoughts of harming others: None Do you have a plan to hurt others: No Plan Recently lost weight without trying: No How much weight loss: Not applicable Eating poorly because of decreased appetite: No Nutrition screen score: 0 Nutrition Risks: No Nutritional Risk Patient : No : No Poor oral hygiene: No service: No Current occupational status: disabled 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 Meds Allergies Allergy/AdvReac Type Severity Reaction Status Date / Time ibuprofen [From MOTRIN] Allergy Unknown UPSET Verified 08/11/21 14:30 STOMACH Active Medications: Current Medications Acetaminophen (Acetaminophen 325 Mg Tablet) 650 mg PO Q6H PRN PRN Reason: Pain, Mild (Pain Scale 1-3) Last Admin: 08/14/21 09:21 Dose: 650 mg Documented by: Atorvastatin Calcium (Atorvastatin Calcium 80 Mg Tablet) 80 mg PO DAILY [facility] Last Admin: 08/14/21 09:17 Dose: 80 mg Documented by: Dextrose (Dextrose 50 % 25 Gm/50 Ml Vial) 25 gm IVPUSH Q15M PRN; Protocol PRN Reason: per Hypoglycemia Standing Ord. Diltiazem HCl (Diltiazem Hcl Cd 180 Mg Cap.Er.24h) 360 mg PO DAILY [facility]; Protocol Last Admin: 08/14/21 09:15 Dose: 360 mg Documented by: Escitalopram Oxalate (Escitalopram Oxalate 10 Mg Tablet) 10 mg PO DAILY [facility] Last Admin: 08/14/21 09:17 Dose: 10 mg Documented by: Glipizide (Glipizide Xl 10 Mg Tab.Er.24) 10 mg PO DAILY [facility] Last Admin: 08/14/21 09:16 Dose: 10 mg Documented by: Glucose (Glucose Gel 15 Gm Gel..Gram.) 15 gm PO Q15M PRN; Protocol PRN Reason: per Hypoglycemia Standing Ord. Hydrochlorothiazide (Hydrochlorothiazide 12.5 Mg Tablet) 12.5 mg PO DAILY [facility]; Protocol Last Admin: 08/14/21 09:16 Dose: 12.5 mg Documented by: Piperacillin Sod/Tazobactam (Sod 3.375 gm/ Sodium Chloride) 50 mls @ 100 mls/hr IV Q6H [facility] Last Infusion: 08/14/21 06:30 Dose: Infused Documented by: Insulin Glargine (Insulin Glargine,Hum.Rec.Anlog 100 Unit/Ml 10 Ml Vial) 5 unit SUBCUT BEDTIME [facility] Last Admin: 08/13/21 21:21 Dose: 5 unit Documented by: Insulin Human Lispro (Insulin Lispro 100 Unit/Ml 3 Ml Vial) 0 unit SUBCUT QIDACHS [facility]; Protocol Last Admin: 08/14/21 09:17 Dose: 2 unit Documented by: Levothyroxine Sodium (Levothyroxine Sodium 100 Mcg Tablet) 100 mcg PO DAILY@0600 [facility] Last Admin: 08/14/21 05:30 Dose: 100 mcg Documented by: Melatonin (Melatonin 3 Mg Tablet) 6 mg PO BEDTIME [facility] Last Admin: 08/13/21 21:20 Dose: 6 mg Documented by: Metoprolol Succinate (Metoprolol Succinate Er 100 Mg Tab.Er.24h) 100 mg PO DAILY [facility]; Protocol Last Admin: 08/14/21 09:16 Dose: 100 mg Documented by: Omeprazole (Omeprazole 20 Mg Capsule.) 20 mg PO BID@0630,1630 [facility] Last Admin: 08/14/21 05:30 Dose: 20 mg Documented by: Pharmacy Consult (Consult Rx Vancomycin Dosing) 1 each MISCELLANE DAILY PRN PRN Reason: Consult order Pharmacy Consult (Consult Rx Perform Med Rec) 1 each MISCELLANE ONCE PRN PRN Reason: Consult order Pregabalin (Pregabalin 100 Mg Capsule) 100 mg PO DAILY [facility] Last Admin: 08/13/21 10:03 Dose: Not Given Documented by: Pregabalin (Pregabalin 200 Mg Capsule) 200 mg PO BEDTIME [facility] Last Admin: 08/12/21 21:41 Dose: 200 mg Documented by: Sodium Chloride (0.9 % Sodium Chloride Flush 3 Ml Syringe) 3 ml IVFLUSH QSHIFT [facility] Last Admin: 08/14/21 09:22 Dose: 3 ml Documented by: Trazodone HCl (Trazodone Hcl 50 Mg Tablet) 50 mg PO BEDTIME [facility] Last Admin: 08/12/21 21:41 Dose: 50 mg Documented by: Home Medications Medication Instructions Recorded Confirmed Last Taken Type aspirin 81 mg tablet,delayed 81 mg PO DAILY 05/23/20 08/12/21 08/11/21 History release blood sugar diagnostic #10 ea 05/23/20 05/28/21 Unknown History citalopram 20 mg tablet 20 mg PO DAILY 05/23/20 08/12/21 08/11/21 History diltiazem HCl 360 mg capsule,24 360 mg PO DAILY 05/23/20 08/12/21 08/11/21 History hr,extended release glipizide 10 mg tablet, extended 10 mg PO DAILY 05/23/20 08/12/21 08/11/21 History release 24 hr hydrochlorothiazide 12.5 mg capsule 12.5 mg PO DAILY 05/23/20 08/12/21 08/11/21 History lancets 28 gauge #100 ea 05/23/20 05/28/21 Unknown History levothyroxine 100 mcg tablet 100 mcg PO DAILY 05/23/20 08/12/21 08/11/21 History lisinopril 40 mg tablet 40 mg PO DAILY 05/23/20 08/12/21 08/11/21 History metformin 500 mg tablet,extended 1,000 mg PO BID 05/23/20 08/12/21 08/11/21 History release 24 hr metoprolol succinate 100 mg 100 mg PO DAILY 05/23/20 08/12/21 08/11/21 History tablet,extended release 24 hr pregabalin 200 mg capsule 200 mg PO BEDTIME 05/23/20 08/12/21 Unknown History sitagliptin 100 mg tablet 100 mg PO DAILY 05/23/20 08/12/21 08/11/21 History trazodone 50 mg tablet 50 mg PO BEDTIME 05/23/20 08/12/21 08/11/21 History atorvastatin 80 mg tablet 1 tab PO DAILY 08/12/21 08/12/21 08/11/21 History denosumab 60 mg/mL subcutaneous 60 mg SUBCUT [id number] 08/12/21 08/12/21 Unknown History syringe (Prolia) insulin glargine 100 unit/mL (3 5 unit SUBCUT BEDTIME 08/12/21 08/12/21 Unknown History mL) subcutaneous pen (Lantus Solostar U-100 Insulin) melatonin 5 mg tablet 5 mg PO BEDTIME 08/12/21 08/12/21 08/11/21 History meloxicam 7.5 mg tablet 1 tab PO DAILY 08/12/21 08/12/21 Unknown History pregabalin 100 mg capsule 100 mg PO DAILY 08/12/21 08/12/21 Unknown History Physical Exam Vital Signs: Vital Signs: Last Vital Signs Temp 98.2 F 08/14/21 07:41 Pulse 88 08/14/21 09:16 Resp 18 08/14/21 07:41 BP 187/80 H 08/14/21 09:16 Pulse Ox 100 08/14/21 07:41 BMI result Body Mass Index 26.1 Const: General: cooperative and no acute distress Nutritional Appearance: well nourished Orientation/consciousness: patient oriented x3 Limitations: no limitations HENMT: Head: Yes normocephalic and Yes contusion (Bilateral face) Ears: hearing grossly normal bilaterally Resp: Effort & Inspection: normal respiratory effort, no audible wheezes, no cough and no respiratory distress GI: Inspection: Yes normal to inspection Skin: General skin exam: no rashes or lesions noted Neuro: General: patient oriented x3 Extrem: Other: Right foot with an area of dry skin necrosis involving the heel, no ulceration, bleeding, or discharge noted. No palpable fluctuance below the skin.Necrotic wound was covered with a clean pink foam dressing. No open wound noted. Minimal surrounding erythema is appreciated. Ankle/foot/toe images: 1. Area of skin necrosis Results Labs Result diagrams: 08/14/21 04:45 08/14/21 04:45 Labs: Abnormal lab results 08/13/21 08/13/21 08/14/21 Range/Units 16:28 20:44 04:45 WBC 15.0 H (4.8-10.8) X10*3/uL RBC 3.25 L (4.20-5.50) X10*6/uL Hgb 8.3 L (12.0-16.0) g/dl Hct 27.9 L (37.0-47.0) % MCH 25.5 L (27.0-33.0) pg MCHC 29.7 L (31.0-35.0) g/dl RDW 16.1 H (11.0-16.0) % Plt Count 583 H (160-400) X10*3/uL Chloride (96-108) mmol/L POC Glucose 176 H 233 H (60-115) mg/dL Random Glucose (60-115) mg/dL Calcium (8.4-10.2) mg/dL 08/14/21 08/14/21 Range/Units 04:45 07:39 WBC (4.8-10.8) X10*3/uL RBC (4.20-5.50) X10*6/uL Hgb (12.0-16.0) g/dl Hct (37.0-47.0) % MCH (27.0-33.0) pg MCHC (31.0-35.0) g/dl RDW (11.0-16.0) % Plt Count (160-400) X10*3/uL Chloride 109 H (96-108) mmol/L POC Glucose 187 H (60-115) mg/dL Random Glucose 170 H (60-115) mg/dL Calcium 8.2 L D (8.4-10.2) mg/dL Short CBC 08/14/21 Range/Units 04:45 WBC 15.0 H (4.8-10.8) X10*3/uL Hgb 8.3 L (12.0-16.0) g/dl Hct 27.9 L (37.0-47.0) % Plt Count 583 H (160-400) X10*3/uL BMP 08/14/21 04:45 Sodium 141 Potassium 4.4 Chloride 109 H Carbon Dioxide 22 BUN 11 Creatinine 0.82 Calcium 8.2 L D Urine 08/12/21 Range/Units 15:42 Urine Color YELLOW Urine Appearance CLEAR Urine pH 8.0 (5.0-8.0) Ur Specific [place] 1.015 (1.005-1.025) Urine Protein NEG (NEG-TRACE) MG/DL Urine Glucose (UA) NEG (NEG) MG/DL All other labs normal. Assessment and Plan (1) Cellulitis of foot, right: Status: Acute (2) PAD (peripheral artery disease): Status: Acute (3) Diabetes mellitus: Status: Acute 76-year-old female patient with long history of diabetes mellitus and probable peripheral artery disease found to have a necrotic heel. The wound is dry without underlying abscess. Patient was previously evaluated by Dr. Ravi and noninvasive arterial studies requested. MRI revealed cutaneous changes without underlying osteomyelitis. Recommend obtaining arterial Doppler studies while hospitalized. Patient at high risk for limb loss. Procedures Date of Service Date of Service: 08/14/21
[2021-08-14 11:44] LABS: Glucose, Whole Blood 229 mg/dL (60-115)
--- NOTE | 2021-08-14 16:06 | PM.EVENT ---
Event Note Date of Service: 08/14/21 Event Note: GI Consult-Full note dictated-Hx via patient, her RN, and the EMR Imp: Chronic anemia-patient well known to me from previous office visits. She has had 4 colonoscopies between 2000 and 2012 which have been negative except for a tubular adenoma in 2000, as well as multiple EGD's with the most recent one in 09/2020 with the finding of only some gastritis and a hiatal hernia with biopsies neg. for H.pylori. Previous EGD with duodenal biopsies negative for celiac disease. She is followed by Dr. Holcomb for the chronic anemia as well. It appears to be a combination of B12 and Iron deficiency. as well as anemia of chronic disease and from some renal insufficiency. She presently denies GI complaints and feels better after a CCY in 05/2021. There has been no evidence of bleeding. She has aspirin 81mg and Meloxicam on her med list from home. She is presently admitted for an infected heel ulcer and has been noted to have some decline in her Hgb, but without any active GI complaints nor any evidence of bleeding. Diff dx: Chronic anemia probably most related to chronic disease. Rec: Given no active GI complaints and no signs of GI bleeding I would hold off on any endoscopic intervention at this time. Would treat supportively with oral Iron, and transfusion if needed. Continue QD omeprazole, minimize any aspirin use, and avoid NSAIDs completely if possible. Check stool Hemoccults. She does have an appointment to see me at the end of 08/2021 and we can assess as to whether she might need a colonoscopy at that time given her last exam being in 2012. Please call me if I can be of further assistance during the hospitalization. Thanks
[2021-08-14] MEDS: Ferrous Sulfate 324 MG TABLET.DR PO (16:40)
[2021-08-14 16:51] LABS: Glucose, Whole Blood 96 mg/dL (60-115)
--- NOTE | 2021-08-14 17:26 | CONS_ITS ---
DATE OF SERVICE: 08/14/2021 REASON FOR CONSULTATION: Anemia and iron deficiency. History has been obtained from the patient, her nurse, and the medical record. HISTORY OF PRESENT ILLNESS: Patient is a 76-year-old female, well known to me from previous office visits with underlying chronic anemia. I last saw her in the fall at which time we had reviewed an upper endoscopy from earlier in the year, which had shown a hiatal hernia and some mild gastritis. I did perform balloon dilation of the gastroesophageal junction at that time, although there was no definitive stricture. Gastric biopsies were negative for H pylori at that time. When I saw her in April, she was feeling well from a GI standpoint, but was having some symptomatic issues from gallbladder disease and she subsequently underwent cholecystectomy in May with good relief of those symptoms. In reviewing the record, she has had 4 previous colonoscopies between 2000 and 2012, which have been negative other than a tubular adenoma on one of the exams. She has had multiple upper endoscopies including the most recent one in 2020 in September. A previous upper endoscopy with duodenal biopsies did not show celiac disease. She has had a chronic and intermittent anemia and is followed by Dr. Holcomb for that as well. This is felt to be multifactorial with a previous B12 deficiency, some iron deficiency, and probably some chronic disease in relation to some vascular disease for which she is presently admitted with an infected heel ulcer. Since admission here, she has had some decline in her hemoglobin. On August 05, she had a hemoglobin of 9.8 compared to 8.7 in May. Hemoglobin on August 12 was 8.6 and hemoglobin yesterday was 7.6. Hemoglobin this morning was 8.3. MCV has been normal. In discussion with her, she denies any significant heartburn or dysphagia. She has been eating comfortably. She denies any abdominal pain. There has been no reported melena nor hematochezia. She denies any diarrhea. MEDICATIONS: List at home includes aspirin 81 mg and meloxicam. STUDIES: From April showed a normal B12 and folate level, hemoglobin of 10.6, iron of 32 with a TIBC of 257, and iron saturation of 12% and ferritin of 32. Her most recent iron studies done just yesterday revealed iron of 14, and iron saturation of 5%. CURRENT MEDICATIONS: Include omeprazole 20 mg b.i.d., acetaminophen, atorvastatin, diltiazem, Lexapro, glipizide, hydrochlorothiazide, insulin, levothyroxine, Zosyn, Lyrica, and trazodone. PAST MEDICAL HISTORY: Insulin-dependent diabetes mellitus. Peripheral vascular disease. Recent cholecystectomy as above. Hyperlipidemia. Hypertension. Chronic anemia as above. Gastroesophageal reflux and hiatal hernia. Gastritis. History of tubular adenoma in 2000. Anxiety. Asthma. Depression. Diabetic neuropathy. TIA. PAST SURGICAL HISTORY: Ankle surgery, back surgery and hysterectomy. FAMILY HISTORY: Noncontributory. REVIEW OF SYSTEMS: CONSTITUTIONAL: Her main issue has been that of her heel pain. She denies any anorexia. CARDIAC: No chest pain. PULMONARY: No cough. No hemoptysis. GI: As above. PHYSICAL EXAMINATION: GENERAL: The patient is a pleasant, alert, comfortable-appearing female. SKIN: Warm and dry. Anicteric sclerae. ABDOMEN: Soft, nondistended, nontender. LABORATORY DATA: As above. Normal electrolytes. BUN 11, creatinine 0.8. [place] [address], hemoglobin 8.3, MCV 86, platelets 583,000. IMPRESSION: The patient is a 76-year-old female with multiple medical problems with chronic anemia which seems to be a combination of nutritional factors with low B12 in the past, low iron both in the past and currently, as well as probably some chronic disease component. She has had multiple GI evaluations, although the most recent colonoscopy was back in 2012. She did just have a recent upper endoscopy earlier this year. At this point, she is not having any active GI complaints and there have been no signs of GI bleeding. Therefore, I would hold off on any type of endoscopic intervention during this hospitalization. I would continue omeprazole just once a day given the fairly negative upper endoscopy earlier this year. I would minimize use of aspirin and try to avoid all NSAIDs. I would start her on iron replacement orally at this point. I do not think she needs a transfusion at this time unless the hemoglobin was to drop further. If there is no sign of any active GI bleeding, I would hold off an endoscopy now, but she does have an appointment to see me at the end of August 2021 and I could discuss a colonoscopy with her at that time. Hemoccult stool specimens have been ordered as well. I did review this with her. Obviously, if she shows signs of GI bleeding here, we could reassess that and determine if she needs any endoscopic workup while she is an inpatient, but at this point I do not think that is necessary. Thank you for the consultation. MD LYLY Villatoro/JOSE / [id number] MTDD
[2021-08-14 20:41] LABS: Glucose, Whole Blood 139 mg/dL (60-115)
[2021-08-14] MEDS: Melatonin 3 MG TABLET 6 MG PO (21:21)
[2021-08-14] MEDS: Insulin Glargine,Hum.rec.anlog 100 UNIT/ML 10 ML VIAL SUBCUT (21:21)
--- NOTE | 2021-08-15 00:03 | PC.NURSE ---
pt removed her IV this evening and is confused. Will not allow me to place IV; screamed at first and now is repeating she's done with it and wants to go home. Zosyn not given. Band Manager and Pharmacy made aware. Pharmacy had suggested Augmentin 875mg PO, BID.
[2021-08-15 03:32] VITALS: BP 133/74; PULSE 110; RESP 18; TEMP 37.1; O2SAT 93
[2021-08-15] MEDS: Levothyroxine Sodium 100 MCG TABLET PO (06:30)
[2021-08-15 07:36] LABS: Glucose, Whole Blood 201 mg/dL (60-115)
[2021-08-15 08:00] VITALS: BP 183/86; PULSE 149; RESP 18; TEMP 35.5; O2SAT 91
[2021-08-15] MEDS: Escitalopram Oxalate 10 MG TABLET PO (08:17)
[2021-08-15] MEDS: dilTIAZem HCL CD 180 MG CAP.ER.24H 360 MG PO (08:17)
[2021-08-15] MEDS: hydroCHLOROthiazide 12.5 MG TABLET PO (08:17)
[2021-08-15] MEDS: Insulin Lispro 100 UNIT/ML 3 ML VIAL SUBCUT (08:17)
[2021-08-15] MEDS: Omeprazole 20 MG CAPSULE.DR PO (08:17)
[2021-08-15] MEDS: Ferrous Sulfate 324 MG TABLET.DR PO ×2 (08:17→18:19)
[2021-08-15] MEDS: Metoprolol Succinate ER 100 MG TAB.ER.24H PO (08:18)
[2021-08-15] MEDS: glipiZIDE XL 10 MG TAB.ER.24 PO (08:18)
[2021-08-15] MEDS: Atorvastatin Calcium 80 MG TABLET PO (08:18)
--- NOTE | 2021-08-15 11:25 | P.PNIM_ITS ---
Subjective Subjective Date of Service: 08/15/21 Interval History: dm foot ulcer Review of Systems mild erythema hell area slow improving foot heel ulcer/eshcar old -? necrotic heel ulcer also has pad still has heelpain Physical Exam Vital Signs: Vital Signs: Last Vital Signs Temp 96 F L 08/15/21 08:00 Pulse 149 H 08/15/21 08:00 Resp 18 08/15/21 08:00 BP 183/86 H 08/15/21 08:00 Pulse Ox 91 L 08/15/21 08:00 BMI result Body Mass Index 26.1 ?Appearance: pleasant lithuanian speaking female,Alert.? Oriented X3.? not in distress.? ? Ecchymosis of forehead and eye area as well as bump in? frontal forhead area. cvs: rrr, [id number] . res: clear to auscultation ,no rhonchii or wheezing abd: no rebound or guarding ,nt, bs present. ext pulses present , no cyanosis right foot? heel area : ulcer/echcar similar as admission, still has mild erythema,? no? fluctuation or discharge, possible necrotic ulcer . neuro: axo3 , nonfocal. ? Objective Data Active Medications Acetaminophen (Acetaminophen 325 Mg Tablet) 650 mg PO Q6H PRN PRN Reason: Pain, Mild (Pain Scale 1-3) Last Admin: 08/14/21 16:40 Dose: 650 mg Documented by: KENTON Atorvastatin Calcium (Atorvastatin Calcium 80 Mg Tablet) 80 mg PO DAILY [facility] Last Admin: 08/15/21 08:18 Dose: 80 mg Documented by: ENMA Dextrose (Dextrose 50 % 25 Gm/50 Ml Vial) 25 gm IVPUSH Q15M PRN; Protocol PRN Reason: per Hypoglycemia Standing Ord. Diltiazem HCl (Diltiazem Hcl Cd 180 Mg Cap.Er.24h) 360 mg PO DAILY [facility]; Protocol Last Admin: 08/15/21 08:17 Dose: 360 mg Documented by: ENMA Escitalopram Oxalate (Escitalopram Oxalate 10 Mg Tablet) 10 mg PO DAILY [facility] Last Admin: 08/15/21 08:17 Dose: 10 mg Documented by: ENMA Ferrous Sulfate (Ferrous Sulfate 324 Mg Tablet.) 324 mg PO BIDWM [facility] Last Admin: 08/15/21 08:17 Dose: 324 mg Documented by: ENMA Glipizide (Glipizide Xl 10 Mg Tab.Er.24) 10 mg PO DAILY [facility] Last Admin: 08/15/21 08:18 Dose: 10 mg Documented by: ENMA Glucose (Glucose Gel 15 Gm Gel..Gram.) 15 gm PO Q15M PRN; Protocol PRN Reason: per Hypoglycemia Standing Ord. Hydrochlorothiazide (Hydrochlorothiazide 12.5 Mg Tablet) 12.5 mg PO DAILY [facility]; Protocol Last Admin: 08/15/21 08:17 Dose: 12.5 mg Documented by: ENMA Piperacillin Sod/Tazobactam (Sod 3.375 gm/ Sodium Chloride) 50 mls @ 100 mls/hr IV Q6H [facility] Last Admin: 08/15/21 06:06 Dose: Not Given Documented by: KHUSHI Non-Admin Reason: see RN note Insulin Glargine (Insulin Glargine,Hum.Rec.Anlog 100 Unit/Ml 10 Ml Vial) 5 unit SUBCUT BEDTIME [facility] Last Admin: 08/14/21 21:21 Dose: 5 unit Documented by: KHUSHI Insulin Human Lispro (Insulin Lispro 100 Unit/Ml 3 Ml Vial) 0 unit SUBCUT QIDACHS [facility]; Protocol Last Admin: 08/15/21 08:17 Dose: 4 unit Documented by: ENMA Levothyroxine Sodium (Levothyroxine Sodium 100 Mcg Tablet) 100 mcg PO DAILY@0600 [facility] Last Admin: 08/15/21 06:30 Dose: 100 mcg Documented by: KHUSHI Melatonin (Melatonin 3 Mg Tablet) 6 mg PO BEDTIME [facility] Last Admin: 08/14/21 21:21 Dose: 6 mg Documented by: KHUSHI Metoprolol Succinate (Metoprolol Succinate Er 100 Mg Tab.Er.24h) 100 mg PO DAILY [facility]; Protocol Last Admin: 08/15/21 08:18 Dose: 100 mg Documented by: ENMA Omeprazole (Omeprazole 20 Mg Capsule.) 20 mg PO DAILY [facility] Last Admin: 08/15/21 08:17 Dose: 20 mg Documented by: ENMA Pharmacy Consult (Consult Rx Vancomycin Dosing) 1 each MISCELLANE DAILY PRN PRN Reason: Consult order Pharmacy Consult (Consult Rx Perform Med Rec) 1 each MISCELLANE ONCE PRN PRN Reason: Consult order Pregabalin (Pregabalin 100 Mg Capsule) 100 mg PO DAILY [facility] Last Admin: 08/13/21 10:03 Dose: Not Given Documented by: KAILEY Non-Admin Reason: lethargic Pregabalin (Pregabalin 200 Mg Capsule) 200 mg PO BEDTIME [facility] Last Admin: 08/12/21 21:41 Dose: 200 mg Documented by: AMBROSIO Sodium Chloride (0.9 % Sodium Chloride Flush 3 Ml Syringe) 3 ml IVFLUSH QSHIFT [facility] Last Admin: 08/15/21 08:18 Dose: Not Given Documented by: ENMA Non-Admin Reason: No Access Trazodone HCl (Trazodone Hcl 50 Mg Tablet) 50 mg PO BEDTIME [facility] Last Admin: 08/12/21 21:41 Dose: 50 mg Documented by: AMBROSIO Labs CBC & Chem 7: 08/14/21 04:45 08/14/21 04:45 Labs: Laboratory Results - last 24 hr 08/14/21 08/14/21 08/14/21 11:28 15:49 19:33 POC Glucose 229 H 96 139 H 08/15/21 07:22 POC Glucose 201 H Microbiology Microbiology Results: Microbiology 08/12/21 14:31 Blood Culture - Preliminary Blood - Venous No growth after 48 hours. 08/12/21 14:18 Blood Culture - Preliminary Blood - Venous No growth after 48 hours. 08/12/21 Unknown Urine Culture - Final Urine clean catch - Urine castillo top Assessment and Plan (1) PAD (peripheral artery disease): Status: Acute (2) Cellulitis of foot, right: Status: Acute Assessment and Plan: 1. ? Foot cellulitis: sepsis resolved toxic metabolic encephalopathy improved ?no lactic acidosis blood culture prelim neg ? MRI foot:no foot osteo, shows superficial skin wound continue Zosyn Id evaluation pending surgery evaluation noted: Patient possibly have dry necrotic ulcer at the heel , will get arterial duplex also added vascular consult. 2. Diabetes:fs wth covereage. 3.HTN--continue home meds HCTZ, Lisinopril, cardizem and metoprolol. BP is normal. 4.HLD--continue Lipitor. 5.GERD--Omeprazole. 6.Hypontyroidism--Levothyroxine. 7. ? Normochromic anemia:? Question if drop of H&H delusional due to fluid ?patient denies? any blood in the stool or melena history h/h improving iron studies-iron and ironsats low , tibc /iron sats normal , b12 and folate levels? normal, fobt Gi eval for anemia ? Iron def , also on AC dvt prophylax :s/c heparin Quality Stroke Does the patient have a stroke diagnosis?: No VTE Prior VTE?: No VTE Risk Level:: Medical - moderate - high VTE Device Contraindication: Treatment Not Indicated VTE Drug Contraindication: N/A - Med Ordered
[2021-08-15 11:50] LABS: Glucose, Whole Blood 127 mg/dL (60-115)
[2021-08-15 12:00] VITALS: BP 145/67; PULSE 110; RESP 18; TEMP 36.8; O2SAT 99
[2021-08-15] MEDS: Docusate Sodium 100 MG CAPSULE PO ×2 (14:45→21:06)
[2021-08-15] MEDS: oxyCODONE HCl Immed Release 5 MG TABLET PO (14:45)
[2021-08-15] MEDS: polyethylene glycoL 3350 17 GM POWD.PACK PO (14:45)
[2021-08-15] MEDS: traZODone HCL 25 MG HALFTAB PO (14:46)
[2021-08-15 15:24] VITALS: BP 174/86; PULSE 118; RESP 16; TEMP 36.8; O2SAT 97
[2021-08-15 16:42] LABS: Vancomycin Trough 5.3 mcg/mL (10.0-20.0)
[2021-08-15 16:57] LABS: Glucose, Whole Blood 130 mg/dL (60-115)
[2021-08-15] MEDS: 0.9 % Sodium Chloride Flush 3 ML SYRINGE IVFLUSH ×2 (17:27→21:07)
[2021-08-15] MEDS: Piperacillin Sodium/Tazobactam 3.375 GM in 0.9 % Sodium Chloride 50 ML IV ×2 (18:19→23:11)
--- NOTE | 2021-08-15 19:42 | W.PM.IDCN ---
History of Present Illness Data of Consult Service Date: 08/14/21 Requesting physician: Andrea Cardoza Primary Care Provider: Roberto Carlos Sanford MD HPI Reason for consult: heel eschar,right eschar She presents to hospital with right heel eschar and had this for two months. She has MRI which shows no osteomyelitis She has blood cultures negative Review of Systems Review of Systems: Yes all other systems are reviewed and are negative PMFSH Past Medical History Medical History Anxiety Asthma Depression Diabetes mellitus Diabetic neuropathy Dysphagia Fibromyalgia GERD (gastroesophageal reflux disease) Hiatal hernia HTN (hypertension) Hx of gastritis Hypercholesterolemia Hypothyroidism IBS (irritable bowel syndrome) Mini stroke Mononeuritis On beta jeannie at home Osteoarthritis Osteoporosis Vitamin B 12 deficiency Family History Family History Sister Diabetes Family history: reviewed and not pertinent Surgical History Surgical History H/O local excision of skin lesion History of ankle surgery History of back surgery History of esophagogastroduodenoscopy (EGD) History of open reduction and internal fixation (ORIF) procedure Hx of hysterectomy Social History Social History Household Members: None Housing: Apartment Do you presently have visiting nurse or other home services: Yes Unable to assess alcohol history related to: Unknown Alcohol intake: never Patient Tobacco Use Status: Former Tobacco user Quit Date: >20 yr ago Use of substances other than those prescribed or required for medical reasons: No Currently Displaying Signs/Symptoms of Drug Intoxication Withdrawal: No Have you been hit, kicked, punched, or otherwise hurt by someone within the past year? If so, by whom?: No Do you feel safe in your current relationship?: No Current Relationship Is there a partner from a previous relationship who is making you feel unsafe now?: No Are you made to feel afraid or neglected: No Advance Directives: Yes Advance Directives on File: Yes Advance Directives Date on File: 11/05/20 Do you have thoughts of harming others: None Do you have a plan to hurt others: No Plan Recently lost weight without trying: No How much weight loss: Not applicable Eating poorly because of decreased appetite: No Nutrition screen score: 0 Nutrition Risks: No Nutritional Risk Patient : No : No Poor oral hygiene: No service: No Current occupational status: disabled 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 Meds Allergies Allergy/AdvReac Type Severity Reaction Status Date / Time ibuprofen [From MOTRIN] Allergy Unknown UPSET Verified 08/11/21 14:30 STOMACH Active Medications: Current Medications Acetaminophen (Acetaminophen 325 Mg Tablet) 650 mg PO Q6H PRN PRN Reason: Pain, Mild (Pain Scale 1-3) Last Admin: 08/14/21 16:40 Dose: 650 mg Documented by: Atorvastatin Calcium (Atorvastatin Calcium 80 Mg Tablet) 80 mg PO DAILY [facility] Last Admin: 08/15/21 08:18 Dose: 80 mg Documented by: Dextrose (Dextrose 50 % 25 Gm/50 Ml Vial) 25 gm IVPUSH Q15M PRN; Protocol PRN Reason: per Hypoglycemia Standing Ord. Diltiazem HCl (Diltiazem Hcl Cd 180 Mg Cap.Er.24h) 360 mg PO DAILY [facility]; Protocol Last Admin: 08/15/21 08:17 Dose: 360 mg Documented by: Docusate Sodium (Docusate Sodium 100 Mg Capsule) 100 mg PO BID [facility] Last Admin: 08/15/21 14:45 Dose: 100 mg Documented by: Escitalopram Oxalate (Escitalopram Oxalate 10 Mg Tablet) 10 mg PO DAILY [facility] Last Admin: 08/15/21 08:17 Dose: 10 mg Documented by: Ferrous Sulfate (Ferrous Sulfate 324 Mg Tablet.Dr) 324 mg PO BIDWM [facility] Last Admin: 08/15/21 18:19 Dose: 324 mg Documented by: Glipizide (Glipizide Xl 10 Mg Tab.Er.24) 10 mg PO DAILY [facility] Last Admin: 08/15/21 08:18 Dose: 10 mg Documented by: Glucose (Glucose Gel 15 Gm Gel..Gram.) 15 gm PO Q15M PRN; Protocol PRN Reason: per Hypoglycemia Standing Ord. Hydrochlorothiazide (Hydrochlorothiazide 12.5 Mg Tablet) 12.5 mg PO DAILY [facility]; Protocol Last Admin: 08/15/21 08:17 Dose: 12.5 mg Documented by: Piperacillin Sod/Tazobactam (Sod 3.375 gm/ Sodium Chloride) 50 mls @ 100 mls/hr IV Q6H [facility] Last Infusion: 08/15/21 18:48 Dose: Infused Documented by: Insulin Glargine (Insulin Glargine,Hum.Rec.Anlog 100 Unit/Ml 10 Ml Vial) 5 unit SUBCUT BEDTIME [facility] Last Admin: 08/14/21 21:21 Dose: 5 unit Documented by: Insulin Human Lispro (Insulin Lispro 100 Unit/Ml 3 Ml Vial) 0 unit SUBCUT QIDACHS [facility]; Protocol Last Admin: 08/15/21 17:26 Dose: Not Given Documented by: Levothyroxine Sodium (Levothyroxine Sodium 100 Mcg Tablet) 100 mcg PO DAILY@0600 [facility] Last Admin: 08/15/21 06:30 Dose: 100 mcg Documented by: Melatonin (Melatonin 3 Mg Tablet) 6 mg PO BEDTIME [facility] Last Admin: 08/14/21 21:21 Dose: 6 mg Documented by: Metoprolol Succinate (Metoprolol Succinate Er 100 Mg Tab.Er.24h) 100 mg PO DAILY [facility]; Protocol Last Admin: 08/15/21 08:18 Dose: 100 mg Documented by: Omeprazole (Omeprazole 20 Mg Capsule.) 20 mg PO DAILY [facility] Last Admin: 08/15/21 08:17 Dose: 20 mg Documented by: Pharmacy Consult (Consult Rx Vancomycin Dosing) 1 each MISCELLANE DAILY PRN PRN Reason: Consult order Pharmacy Consult (Consult Rx Perform Med Rec) 1 each MISCELLANE ONCE PRN PRN Reason: Consult order Polyethylene Glycol (Polyethylene Glycol 3350 17 Gm Powd.Pack) 17 gm PO DAILY [facility] Last Admin: 08/15/21 14:45 Dose: 17 gm Documented by: Pregabalin (Pregabalin 100 Mg Capsule) 100 mg PO DAILY [facility] Last Admin: 08/13/21 10:03 Dose: Not Given Documented by: Pregabalin (Pregabalin 200 Mg Capsule) 200 mg PO BEDTIME [facility] Last Admin: 08/12/21 21:41 Dose: 200 mg Documented by: Sodium Chloride (0.9 % Sodium Chloride Flush 3 Ml Syringe) 3 ml IVFLUSH QSHIFT [facility] Last Admin: 08/15/21 17:27 Dose: 3 ml Documented by: Trazodone HCl (Trazodone Hcl 50 Mg Tablet) 50 mg PO BEDTIME [facility] Last Admin: 08/12/21 21:41 Dose: 50 mg Documented by: Home Medications Medication Instructions Recorded Confirmed Last Taken Type aspirin 81 mg tablet,delayed 81 mg PO DAILY 05/23/20 08/12/21 08/11/21 History release blood sugar diagnostic #10 ea 05/23/20 05/28/21 Unknown History citalopram 20 mg tablet 20 mg PO DAILY 05/23/20 08/12/21 08/11/21 History diltiazem HCl 360 mg capsule,24 360 mg PO DAILY 05/23/20 08/12/21 08/11/21 History hr,extended release glipizide 10 mg tablet, extended 10 mg PO DAILY 05/23/20 08/12/21 08/11/21 History release 24 hr hydrochlorothiazide 12.5 mg capsule 12.5 mg PO DAILY 05/23/20 08/12/21 08/11/21 History lancets 28 gauge #100 ea 05/23/20 05/28/21 Unknown History levothyroxine 100 mcg tablet 100 mcg PO DAILY 05/23/20 08/12/21 08/11/21 History lisinopril 40 mg tablet 40 mg PO DAILY 05/23/20 08/12/21 08/11/21 History metformin 500 mg tablet,extended 1,000 mg PO BID 05/23/20 08/12/21 08/11/21 History release 24 hr metoprolol succinate 100 mg 100 mg PO DAILY 05/23/20 08/12/21 08/11/21 History tablet,extended release 24 hr pregabalin 200 mg capsule 200 mg PO BEDTIME 05/23/20 08/12/21 Unknown History sitagliptin 100 mg tablet 100 mg PO DAILY 05/23/20 08/12/21 08/11/21 History trazodone 50 mg tablet 50 mg PO BEDTIME 05/23/20 08/12/21 08/11/21 History atorvastatin 80 mg tablet 1 tab PO DAILY 08/12/21 08/12/21 08/11/21 History denosumab 60 mg/mL subcutaneous 60 mg SUBCUT [id number] 08/12/21 08/12/21 Unknown History syringe (Prolia) insulin glargine 100 unit/mL (3 5 unit SUBCUT BEDTIME 08/12/21 08/12/21 Unknown History mL) subcutaneous pen (Lantus Solostar U-100 Insulin) melatonin 5 mg tablet 5 mg PO BEDTIME 08/12/21 08/12/21 08/11/21 History meloxicam 7.5 mg tablet 1 tab PO DAILY 08/12/21 08/12/21 Unknown History pregabalin 100 mg capsule 100 mg PO DAILY 08/12/21 08/12/21 Unknown History Physical Exam Vital Signs: Vital Signs: Last Vital Signs Temp 98.2 F 08/15/21 15:24 Pulse 118 H 08/15/21 15:24 Resp 16 08/15/21 15:24 BP 174/86 H 08/15/21 15:24 Pulse Ox 97 08/15/21 15:24 BMI result Body Mass Index 26.1 Const: General: cooperative Orientation/consciousness: patient oriented x3 HENMT: Mouth: Normal oral and palatal mucosa present Eyes: General: appearance normal, both eyes and all related structures Pupils: Equal, round and reactive pupils present Resp: Effort & Inspection: normal respiratory effort Cardio: Rate: regular rate Rhythm: regular rhythm GI: Palpation (GI): Soft to palpation and nontender : General: Yes no CVA tenderness Back/Spine/Pelvis: Back: no CVA tenderness Skin: General skin exam: no rashes or lesions noted Neuro: General: patient oriented x3 Cranial nerves: Yes Equal, round and reactive pupils present Extrem: Other: right heel eschar with no cellulitis Results Labs CBC & Chem 7: 08/14/21 04:45 08/14/21 04:45 Microbiology Microbiology Results: Microbiology 08/12/21 14:31 Blood - Venous Blood Culture - Preliminary No growth after 48 hours. 08/12/21 14:18 Blood - Venous Blood Culture - Preliminary No growth after 48 hours. 08/12/21 Unknown Urine clean catch - Urine castillo top Urine Culture - Final Assessment and Plan (1) Cellulitis of foot, right: Status: Acute She has eschar and cellulitis has resolved She has no osteomyelitis found (2) PAD (peripheral artery disease): Status: Acute Would change to po Doxycycline for a week No fpc antibiotics are necessary
[2021-08-15 19:52] VITALS: BP 165/77; PULSE 104; RESP 14; TEMP 36.7; O2SAT 97
[2021-08-15 20:13] LABS: Glucose, Whole Blood 122 mg/dL (60-115)
[2021-08-15] MEDS: Insulin Glargine,Hum.rec.anlog 100 UNIT/ML 10 ML VIAL SUBCUT (21:07)
[2021-08-15] MEDS: Pregabalin 200 MG CAPSULE PO (21:07)
[2021-08-15] MEDS: Melatonin 3 MG TABLET 6 MG PO (21:07)
[2021-08-16] VITALS (7 sets, daily range): BP systolic 110–142; BP diastolic 54–79; PULSE 80–104; RESP 16–18; TEMP 36.1–37.2; O2SAT 92–99
[2021-08-16] MEDS: Levothyroxine Sodium 100 MCG TABLET PO (06:10)
[2021-08-16] MEDS: Piperacillin Sodium/Tazobactam 3.375 GM in 0.9 % Sodium Chloride 50 ML IV ×3 (06:10→19:46)
[2021-08-16 08:00] LABS: Glucose, Whole Blood 81 mg/dL (60-115)
[2021-08-16] MEDS: dilTIAZem HCL CD 180 MG CAP.ER.24H 360 MG PO (08:31)
[2021-08-16] MEDS: Pregabalin 100 MG CAPSULE PO (08:31)
[2021-08-16] MEDS: hydroCHLOROthiazide 12.5 MG TABLET PO (08:31)
[2021-08-16] MEDS: 0.9 % Sodium Chloride Flush 3 ML SYRINGE IVFLUSH ×3 (08:31→22:31)
[2021-08-16] MEDS: Escitalopram Oxalate 10 MG TABLET PO (08:32)
[2021-08-16] MEDS: Atorvastatin Calcium 80 MG TABLET PO (08:32)
[2021-08-16] MEDS: Omeprazole 20 MG CAPSULE.DR PO (08:32)
[2021-08-16] MEDS: Metoprolol Succinate ER 100 MG TAB.ER.24H PO (08:32)
[2021-08-16] MEDS: Ferrous Sulfate 324 MG TABLET.DR PO ×2 (08:32→17:11)
[2021-08-16] MEDS: polyethylene glycoL 3350 17 GM POWD.PACK PO (08:32)
[2021-08-16] MEDS: glipiZIDE XL 10 MG TAB.ER.24 PO (08:32)
[2021-08-16] MEDS: Docusate Sodium 100 MG CAPSULE PO ×2 (08:32→22:19)
[2021-08-16 08:39] LABS: Hematocrit 26.5 % (37.0-47.0); Hemoglobin 8.2 g/dl (12.0-16.0); Mean Corpuscular HGB Conc 30.9 g/dl (31.0-35.0); Mean Corpuscular Hemoglobin 25.9 pg (27.0-33.0); Mean Corpuscular Volume 83.6 fL (80.0-98.0); Mean Platelet Volume 9.5 fL (9.4-12.3); Platelet Count 722 X10*3/uL (160-400); Red Blood Count 3.17 X10*6/uL (4.20-5.50); Red Cell Distribution Width 16.3 % (11.0-16.0); White Blood Count 12.1 X10*3/uL (4.8-10.8)
--- NOTE | 2021-08-16 10:35 | P.PNIM_ITS ---
Subjective Subjective Date of Service: 08/17/21 Interval History: Heel ulcer-necrotic and dry. Review of Systems Cellulitis area seems improving Physical Exam Vital Signs: Vital Signs: Last Vital Signs Temp 98.2 F 08/16/21 07:47 Pulse 98 08/16/21 07:47 Resp 17 08/16/21 07:47 BP 138/66 08/16/21 07:47 Pulse Ox 99 08/16/21 07:47 BMI result Body Mass Index 26.1 Physical exam:Appearance: pleasant maldivian speaking female,Alert.? Oriented X3.? not in distress.? ? Ecchymosis of forehead and eye area as well as bump in? frontal forhead area. cvs: rrr, [id number] . res: clear to auscultation ,no rhonchii or wheezing abd: no rebound or guarding ,nt, bs present. ext pulses present , no cyanosis right foot? heel area : ulcer/echcar similar as admission, still has mild erythema,? no? fluctuation or discharge, necrotic ulcer . neuro: axo3 , nonfocal. Objective Data Active Medications Acetaminophen (Acetaminophen 325 Mg Tablet) 650 mg PO Q6H PRN PRN Reason: Pain, Mild (Pain Scale 1-3) Last Admin: 08/14/21 16:40 Dose: 650 mg Documented by: KENTON Atorvastatin Calcium (Atorvastatin Calcium 80 Mg Tablet) 80 mg PO DAILY [facility] Last Admin: 08/16/21 08:32 Dose: 80 mg Documented by: KHUSHI Dextrose (Dextrose 50 % 25 Gm/50 Ml Vial) 25 gm IVPUSH Q15M PRN; Protocol PRN Reason: per Hypoglycemia Standing Ord. Diltiazem HCl (Diltiazem Hcl Cd 180 Mg Cap.Er.24h) 360 mg PO DAILY [facility]; Protocol Last Admin: 08/16/21 08:31 Dose: 360 mg Documented by: KHUSHI Docusate Sodium (Docusate Sodium 100 Mg Capsule) 100 mg PO BID [facility] Last Admin: 08/16/21 08:32 Dose: 100 mg Documented by: KHUSHI Escitalopram Oxalate (Escitalopram Oxalate 10 Mg Tablet) 10 mg PO DAILY [facility] Last Admin: 08/16/21 08:32 Dose: 10 mg Documented by: KHUSHI Ferrous Sulfate (Ferrous Sulfate 324 Mg Tablet.) 324 mg PO BIDWM [facility] Last Admin: 08/16/21 08:32 Dose: 324 mg Documented by: KHUSHI Glipizide (Glipizide Xl 10 Mg Tab.Er.24) 10 mg PO DAILY [facility] Last Admin: 08/16/21 08:32 Dose: 10 mg Documented by: KHUSHI Glucose (Glucose Gel 15 Gm Gel..Gram.) 15 gm PO Q15M PRN; Protocol PRN Reason: per Hypoglycemia Standing Ord. Hydrochlorothiazide (Hydrochlorothiazide 12.5 Mg Tablet) 12.5 mg PO DAILY [facility]; Protocol Last Admin: 08/16/21 08:31 Dose: 12.5 mg Documented by: KHUSHI Piperacillin Sod/Tazobactam (Sod 3.375 gm/ Sodium Chloride) 50 mls @ 100 mls/hr IV Q6H [facility] Last Infusion: 08/16/21 06:44 Dose: 0 mls/hr Documented by: KHUSHI Insulin Glargine (Insulin Glargine,Hum.Rec.Anlog 100 Unit/Ml 10 Ml Vial) 5 unit SUBCUT BEDTIME [facility] Last Admin: 08/15/21 21:07 Dose: 5 unit Documented by: KHUSHI Insulin Human Lispro (Insulin Lispro 100 Unit/Ml 3 Ml Vial) 0 unit SUBCUT QIDACHS [facility]; Protocol Last Admin: 08/16/21 08:23 Dose: Not Given Documented by: KHUSHI Non-Admin Reason: No Insulin Coverage Levothyroxine Sodium (Levothyroxine Sodium 100 Mcg Tablet) 100 mcg PO DAILY@0600 [facility] Last Admin: 08/16/21 06:10 Dose: 100 mcg Documented by: KHUSHI Melatonin (Melatonin 3 Mg Tablet) 6 mg PO BEDTIME [facility] Last Admin: 08/15/21 21:07 Dose: 6 mg Documented by: KHUSHI Metoprolol Succinate (Metoprolol Succinate Er 100 Mg Tab.Er.24h) 100 mg PO DAILY [facility]; Protocol Last Admin: 08/16/21 08:32 Dose: 100 mg Documented by: KHUSHI Omeprazole (Omeprazole 20 Mg Capsule.) 20 mg PO DAILY [facility] Last Admin: 08/16/21 08:32 Dose: 20 mg Documented by: KHUSHI Pharmacy Consult (Consult Rx Vancomycin Dosing) 1 each MISCELLANE DAILY PRN PRN Reason: Consult order Pharmacy Consult (Consult Rx Perform Med Rec) 1 each MISCELLANE ONCE PRN PRN Reason: Consult order Polyethylene Glycol (Polyethylene Glycol 3350 17 Gm Powd.Pack) 17 gm PO DAILY [facility] Last Admin: 08/16/21 08:32 Dose: 17 gm Documented by: KHUSHI Pregabalin (Pregabalin 100 Mg Capsule) 100 mg PO DAILY [facility] Last Admin: 08/16/21 08:31 Dose: 100 mg Documented by: KHUSHI Pregabalin (Pregabalin 200 Mg Capsule) 200 mg PO BEDTIME [facility] Last Admin: 08/15/21 21:07 Dose: 200 mg Documented by: KHUSHI Sodium Chloride (0.9 % Sodium Chloride Flush 3 Ml Syringe) 3 ml IVFLUSH QSHIFT [facility] Last Admin: 08/16/21 08:31 Dose: 3 ml Documented by: KHUSHI Trazodone HCl (Trazodone Hcl 50 Mg Tablet) 50 mg PO BEDTIME [facility] Last Admin: 08/12/21 21:41 Dose: 50 mg Documented by: DEYSIQC Labs CBC & Chem 7: 08/16/21 07:26 08/14/21 04:45 Labs: Laboratory Results - last 24 hr 08/15/21 08/15/21 08/15/21 11:29 16:11 16:42 MCV MCH MCHC RDW Plt Count MPV Absolute Nucleated RBC Nucleated RBC % (auto) POC Glucose 127 H 130 H Vancomycin Trough 5.3 L 08/15/21 08/16/21 08/16/21 19:50 07:26 07:46 MCV 83.6 MCH 25.9 L MCHC 30.9 L RDW 16.3 H Plt Count 722 H MPV 9.5 Absolute Nucleated RBC 0.000 Nucleated RBC % (auto) 0.0 POC Glucose 122 H 81 Vancomycin Trough Assessment and Plan (1) Cellulitis of foot, right: Status: Acute Assessment and Plan: 1. ? Foot cellulitis: sepsis resolved toxic metabolic encephalopathy improved ?no lactic acidosis blood culture prelim neg ? MRI foot:no foot osteo, shows superficial skin wound started on po doxy ?surgery evaluation noted:? Patient possibly have dry necrotic ulcer at the heel, will get arterial duplex - IMPRESSION: Asymmetrically diminished arterial velocities in the left common femoral and superficial femoral arteries, but no hemodynamically significant stenosis bilaterally. will add vascular eval 2. Diabetes:fs wth covereage. 3.HTN--continue home meds HCTZ, Lisinopril, cardizem and metoprolol. BP is normal. 4.HLD--continue Lipitor. 5.GERD--Omeprazole. 6.Hypontyroidism--Levothyroxine. 7. ? Normochromic anemia:? Question if drop of H&H delusional due to fluid ?patient denies? any blood in the stool or melena history h/h improving iron studies-iron and ironsats low , tibc /iron sats normal , b12 and folate levels? normal, fobt Gi eval for anemia -Iron def anemia , asa on hold further workup outpatient. dvt prophylax :: [facility] devices Quality Stroke Does the patient have a stroke diagnosis?: No VTE Prior VTE?: No VTE Risk Level:: Medical - moderate - high VTE Device Contraindication: Treatment Not Indicated VTE Drug Contraindication: N/A - Med Ordered
[2021-08-16 11:30] LABS: Glucose, Whole Blood 162 mg/dL (60-115)
[2021-08-16] MEDS: Insulin Lispro 100 UNIT/ML 3 ML VIAL SUBCUT ×2 (11:59→17:11)
[2021-08-16 16:37] LABS: Glucose, Whole Blood 187 mg/dL (60-115)
[2021-08-16 20:47] LABS: Glucose, Whole Blood 122 mg/dL (60-115)
[2021-08-16] MEDS: Pregabalin 200 MG CAPSULE PO (22:19)
[2021-08-16] MEDS: Melatonin 3 MG TABLET 6 MG PO (22:19)
[2021-08-16] MEDS: Insulin Glargine,Hum.rec.anlog 100 UNIT/ML 10 ML VIAL SUBCUT (22:19)
[2021-08-17] MEDS: Piperacillin Sodium/Tazobactam 3.375 GM in 0.9 % Sodium Chloride 50 ML IV ×2 (00:29→05:34)
[2021-08-17 04:17] VITALS: BP 119/68; PULSE 74; RESP 20; TEMP 35.9; O2SAT 93
[2021-08-17] MEDS: Levothyroxine Sodium 100 MCG TABLET PO (05:34)
[2021-08-17 07:32] VITALS: BP 142/63; PULSE 76; RESP 18; TEMP 36.5; O2SAT 97
[2021-08-17 07:55] LABS: Glucose, Whole Blood 131 mg/dL (60-115)
[2021-08-17] MEDS: Escitalopram Oxalate 10 MG TABLET PO (09:28)
[2021-08-17] MEDS: Ferrous Sulfate 324 MG TABLET.DR PO (09:28)
[2021-08-17] MEDS: Docusate Sodium 100 MG CAPSULE PO (09:28)
[2021-08-17] MEDS: dilTIAZem HCL CD 180 MG CAP.ER.24H 360 MG PO (09:29)
[2021-08-17] MEDS: hydroCHLOROthiazide 12.5 MG TABLET PO (09:29)
[2021-08-17] MEDS: 0.9 % Sodium Chloride Flush 3 ML SYRINGE IVFLUSH (09:29)
[2021-08-17] MEDS: Metoprolol Succinate ER 100 MG TAB.ER.24H PO (09:29)
[2021-08-17] MEDS: Omeprazole 20 MG CAPSULE.DR PO (09:29)
[2021-08-17] MEDS: glipiZIDE XL 10 MG TAB.ER.24 PO (09:29)
[2021-08-17] MEDS: Pregabalin 100 MG CAPSULE PO (09:29)
[2021-08-17] MEDS: Atorvastatin Calcium 80 MG TABLET PO (09:29)
[2021-08-17] MEDS: polyethylene glycoL 3350 17 GM POWD.PACK PO (09:30)
--- NOTE | 2021-08-17 10:13 | MHC.CM.PN ---
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
[2021-08-17 11:31] LABS: Glucose, Whole Blood 172 mg/dL (60-115)
--- NOTE | 2021-08-17 11:31 | P.PNIM_ITS ---
Subjective Subjective Date of Service: 08/17/21 Interval History: Heel ulcer-necrotic and dry. Review of Systems Cellulitis area seems improving, also Physical Exam Vital Signs: Vital Signs: Last Vital Signs Temp 97.7 F 08/17/21 07:32 Pulse 76 08/17/21 07:32 Resp 18 08/17/21 07:32 BP 142/63 H 08/17/21 07:32 Pulse Ox 97 08/17/21 07:32 BMI result Body Mass Index 26.1 Physical exam:Appearance: pleasant hungarian speaking female,Alert.? Oriented X3.? not in distress.? ? Ecchymosis of forehead and eye area as well as bump in? frontal forhead area. cvs: rrr, [id number] . res: clear to auscultation ,no rhonchii or wheezing abd: no rebound or guarding ,nt, bs present. ext pulses present , no cyanosis right foot? heel area : ulcer/echcar similar as admission, still has mild erythema,? no? fluctuation or discharge,? necrotic ulcer . neuro: axo3 , nonfocal. Objective Data Active Medications Acetaminophen (Acetaminophen 325 Mg Tablet) 650 mg PO Q6H PRN PRN Reason: Pain, Mild (Pain Scale 1-3) Last Admin: 08/14/21 16:40 Dose: 650 mg Documented by: KENTON Atorvastatin Calcium (Atorvastatin Calcium 80 Mg Tablet) 80 mg PO DAILY [facility] Last Admin: 08/17/21 09:29 Dose: 80 mg Documented by: HALLE Dextrose (Dextrose 50 % 25 Gm/50 Ml Vial) 25 gm IVPUSH Q15M PRN; Protocol PRN Reason: per Hypoglycemia Standing Ord. Diltiazem HCl (Diltiazem Hcl Cd 180 Mg Cap.Er.24h) 360 mg PO DAILY [facility]; Protocol Last Admin: 08/17/21 09:29 Dose: 360 mg Documented by: HALLE Docusate Sodium (Docusate Sodium 100 Mg Capsule) 100 mg PO BID [facility] Last Admin: 08/17/21 09:28 Dose: 100 mg Documented by: HALLE Doxycycline Hyclate (Doxycycline Hyclate 100 Mg Tablet) 100 mg PO Q12H [facility] Last Admin: 08/17/21 11:14 Dose: 100 mg Documented by: HALLE Escitalopram Oxalate (Escitalopram Oxalate 10 Mg Tablet) 10 mg PO DAILY [facility] Last Admin: 08/17/21 09:28 Dose: 10 mg Documented by: HALLE Ferrous Sulfate (Ferrous Sulfate 324 Mg Tablet.) 324 mg PO BIDWM [facility] Last Admin: 08/17/21 09:28 Dose: 324 mg Documented by: HALLE Glipizide (Glipizide Xl 10 Mg Tab.Er.24) 10 mg PO DAILY [facility] Last Admin: 08/17/21 09:29 Dose: 10 mg Documented by: HALLE Glucose (Glucose Gel 15 Gm Gel..Gram.) 15 gm PO Q15M PRN; Protocol PRN Reason: per Hypoglycemia Standing Ord. Hydrochlorothiazide (Hydrochlorothiazide 12.5 Mg Tablet) 12.5 mg PO DAILY [facility]; Protocol Last Admin: 08/17/21 09:29 Dose: 12.5 mg Documented by: HALLE Insulin Glargine (Insulin Glargine,Hum.Rec.Anlog 100 Unit/Ml 10 Ml Vial) 5 unit SUBCUT BEDTIME [facility] Last Admin: 08/16/21 22:19 Dose: 5 unit Documented by: JOSIE Insulin Human Lispro (Insulin Lispro 100 Unit/Ml 3 Ml Vial) 0 unit SUBCUT QIDACHS [facility]; Protocol Last Admin: 08/17/21 08:00 Dose: Not Given Documented by: HALLE Non-Admin Reason: No Insulin Coverage Levothyroxine Sodium (Levothyroxine Sodium 100 Mcg Tablet) 100 mcg PO DAILY@0600 [facility] Last Admin: 08/17/21 05:34 Dose: 100 mcg Documented by: JOSIE Melatonin (Melatonin 3 Mg Tablet) 6 mg PO BEDTIME [facility] Last Admin: 08/16/21 22:19 Dose: 6 mg Documented by: JOSIE Metoprolol Succinate (Metoprolol Succinate Er 100 Mg Tab.Er.24h) 100 mg PO DAILY [facility]; Protocol Last Admin: 08/17/21 09:29 Dose: 100 mg Documented by: HALLE Omeprazole (Omeprazole 20 Mg Capsule.) 20 mg PO DAILY [facility] Last Admin: 08/17/21 09:29 Dose: 20 mg Documented by: HALLE Pharmacy Consult (Consult Rx Vancomycin Dosing) 1 each MISCELLANE DAILY PRN PRN Reason: Consult order Pharmacy Consult (Consult Rx Perform Med Rec) 1 each MISCELLANE ONCE PRN PRN Reason: Consult order Polyethylene Glycol (Polyethylene Glycol 3350 17 Gm Powd.Pack) 17 gm PO DAILY [facility] Last Admin: 08/17/21 09:30 Dose: 17 gm Documented by: HALLE Pregabalin (Pregabalin 100 Mg Capsule) 100 mg PO DAILY [facility] Last Admin: 08/17/21 09:29 Dose: 100 mg Documented by: HALLE Pregabalin (Pregabalin 200 Mg Capsule) 200 mg PO BEDTIME [facility] Last Admin: 08/16/21 22:19 Dose: 200 mg Documented by: JOSIE Sodium Chloride (0.9 % Sodium Chloride Flush 3 Ml Syringe) 3 ml IVFLUSH QSHIFT [facility] Last Admin: 08/17/21 09:29 Dose: 3 ml Documented by: HALLE Trazodone HCl (Trazodone Hcl 50 Mg Tablet) 50 mg PO BEDTIME [facility] Last Admin: 08/12/21 21:41 Dose: 50 mg Documented by: DEYSIQC Labs CBC & Chem 7: 08/16/21 07:26 08/14/21 04:45 Labs: Laboratory Results - last 24 hr 08/16/21 08/16/21 08/17/21 16:26 20:43 07:30 POC Glucose 187 H 122 H 131 H Assessment and Plan Assessment and Plan: 1. ? Foot cellulitis: sepsis resolved toxic metabolic encephalopathy improved ?no lactic acidosis blood culture prelim neg ? MRI foot:no foot osteo, shows superficial skin wound started on po doxy ?surgery evaluation noted:? Patient possibly have dry necrotic ulcer at the heel, will get arterial duplex - IMPRESSION: Asymmetrically diminished arterial velocities in the left common femoral and superficial femoral arteries, but no hemodynamically significant stenosis bilaterally. will add vascular eval vascular consult pending 2. Diabetes:fs wth covereage. 3.HTN--continue home meds HCTZ, Lisinopril, cardizem and metoprolol. BP is normal. 4.HLD--continue Lipitor. 5.GERD--Omeprazole. 6.Hypontyroidism--Levothyroxine. 7. ? Normochromic anemia:? Question if drop of H&H delusional due to fluid ?patient denies? any blood in the stool or melena history h/h improving iron studies-iron and ironsats low , tibc /iron sats normal , b12 and folate levels? normal, fobt Gi eval for anemia -Iron def anemia , asa on hold further workup outpatient. dvt prophylax :: mech devices awaiting rehab placement. Quality Stroke Does the patient have a stroke diagnosis?: No VTE Prior VTE?: No VTE Risk Level:: Medical - moderate - high VTE Device Contraindication: Treatment Not Indicated VTE Drug Contraindication: N/A - Med Ordered
[2021-08-17 11:54] VITALS: BP 129/63; PULSE 86; RESP 18; TEMP 36.9; O2SAT 96
[2021-08-17] MEDS: Insulin Lispro 100 UNIT/ML 3 ML VIAL SUBCUT (12:32)
--- NOTE | 2021-08-17 14:21 | P.CONGS_ITS ---
History of Present Illness Consult details Consult date: 08/17/21 Reason for consult: wound care Narrative: Pleasant 76-year-old female with a history of diabetes hyp ercholesterolemia and peripheral vascular disease presents to the hospital for nonhealing ulcer. She had actually seen me at the end of July in the office for these nonhealing ulcers in significant pain and cellulitis. She has undergone noninvasive arterial testing. In addition she has undergone a course of antibiotics is doing significantly better since her last visit. She now presents to us for vascular evaluation. Review of Systems Review of Systems: Yes all other systems are reviewed and are negative Constitutional: Constitutional: Reports no additional constitutional complaints ENT: Reports Normal hearing present Cardiovascular: Cardiovascular: Denies chest pain, Denies chest pain at rest, Denies chest pain with activity and Denies pedal edema Respiratory: Respiratory: Denies cough Gastrointestinal: Gastrointestinal: Denies abdominal pain Musculoskeletal: Musculoskeletal: Denies abnormal gait, Denies muscle cramps and Denies radiating pain into limb Integumentary/Breasts: Skin/Breast: Denies skin ulcer and Denies wounds Neurologic: Reports Normal hearing present and Denies abnormal gait Psychiatric: Psychiatric: Reports no additional psychiatric complaints PMFSH Past Medical History Medical History Anxiety Asthma Depression Diabetes mellitus Diabetic neuropathy Dysphagia Fibromyalgia GERD (gastroesophageal reflux disease) Hiatal hernia HTN (hypertension) Hx of gastritis Hypercholesterolemia Hypothyroidism IBS (irritable bowel syndrome) Mini stroke Mononeuritis On beta jeannie at home Osteoarthritis Osteoporosis Vitamin B 12 deficiency Family History Family History Sister Diabetes Family history: reviewed and not pertinent Surgical History Surgical History H/O local excision of skin lesion History of ankle surgery History of back surgery History of esophagogastroduodenoscopy (EGD) History of open reduction and internal fixation (ORIF) procedure Hx of hysterectomy Social History Social History Household Members: None Housing: Apartment Do you presently have visiting nurse or other home services: Yes Unable to assess alcohol history related to: Unknown Alcohol intake: never Patient Tobacco Use Status: Former Tobacco user Quit Date: >20 yr ago Use of substances other than those prescribed or required for medical reasons: No Currently Displaying Signs/Symptoms of Drug Intoxication Withdrawal: No Have you been hit, kicked, punched, or otherwise hurt by someone within the past year? If so, by whom?: No Do you feel safe in your current relationship?: No Current Relationship Is there a partner from a previous relationship who is making you feel unsafe now?: No Are you made to feel afraid or neglected: No Advance Directives: Yes Advance Directives on File: Yes Advance Directives Date on File: 11/05/20 Do you have thoughts of harming others: None Do you have a plan to hurt others: No Plan Recently lost weight without trying: No How much weight loss: Not applicable Eating poorly because of decreased appetite: No Nutrition screen score: 0 Nutrition Risks: No Nutritional Risk Patient : No : No Poor oral hygiene: No service: No Current occupational status: disabled 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 Meds Allergies Allergy/AdvReac Type Severity Reaction Status Date / Time ibuprofen [From MOTRIN] Allergy Unknown UPSET Verified 08/11/21 14:30 STOMACH Active Medications: Current Medications Acetaminophen (Acetaminophen 325 Mg Tablet) 650 mg PO Q6H PRN PRN Reason: Pain, Mild (Pain Scale 1-3) Last Admin: 08/14/21 16:40 Dose: 650 mg Documented by: Atorvastatin Calcium (Atorvastatin Calcium 80 Mg Tablet) 80 mg PO DAILY [facility] Last Admin: 08/17/21 09:29 Dose: 80 mg Documented by: Dextrose (Dextrose 50 % 25 Gm/50 Ml Vial) 25 gm IVPUSH Q15M PRN; Protocol PRN Reason: per Hypoglycemia Standing Ord. Diltiazem HCl (Diltiazem Hcl Cd 180 Mg Cap.Er.24h) 360 mg PO DAILY [facility]; Protocol Last Admin: 08/17/21 09:29 Dose: 360 mg Documented by: Docusate Sodium (Docusate Sodium 100 Mg Capsule) 100 mg PO BID [facility] Last Admin: 08/17/21 09:28 Dose: 100 mg Documented by: Doxycycline Hyclate (Doxycycline Hyclate 100 Mg Tablet) 100 mg PO Q12H [facility] Last Admin: 08/17/21 11:14 Dose: 100 mg Documented by: Escitalopram Oxalate (Escitalopram Oxalate 10 Mg Tablet) 10 mg PO DAILY [facility] Last Admin: 08/17/21 09:28 Dose: 10 mg Documented by: Ferrous Sulfate (Ferrous Sulfate 324 Mg Tablet.) 324 mg PO BIDWM [facility] Last Admin: 08/17/21 09:28 Dose: 324 mg Documented by: Glipizide (Glipizide Xl 10 Mg Tab.Er.24) 10 mg PO DAILY [facility] Last Admin: 08/17/21 09:29 Dose: 10 mg Documented by: Glucose (Glucose Gel 15 Gm Gel..Gram.) 15 gm PO Q15M PRN; Protocol PRN Reason: per Hypoglycemia Standing Ord. Hydrochlorothiazide (Hydrochlorothiazide 12.5 Mg Tablet) 12.5 mg PO DAILY [facility]; Protocol Last Admin: 08/17/21 09:29 Dose: 12.5 mg Documented by: Insulin Glargine (Insulin Glargine,Hum.Rec.Anlog 100 Unit/Ml 10 Ml Vial) 5 unit SUBCUT BEDTIME [facility] Last Admin: 08/16/21 22:19 Dose: 5 unit Documented by: Insulin Human Lispro (Insulin Lispro 100 Unit/Ml 3 Ml Vial) 0 unit SUBCUT [facility]I [facility]; Protocol Last Admin: 08/17/21 12:32 Dose: 2 unit Documented by: Levothyroxine Sodium (Levothyroxine Sodium 100 Mcg Tablet) 100 mcg PO DAILY@0600 [facility] Last Admin: 08/17/21 05:34 Dose: 100 mcg Documented by: Melatonin (Melatonin 3 Mg Tablet) 6 mg PO BEDTIME [facility] Last Admin: 08/16/21 22:19 Dose: 6 mg Documented by: Metoprolol Succinate (Metoprolol Succinate Er 100 Mg Tab.Er.24h) 100 mg PO DAILY [facility]; Protocol Last Admin: 08/17/21 09:29 Dose: 100 mg Documented by: Omeprazole (Omeprazole 20 Mg Capsule.) 20 mg PO DAILY [facility] Last Admin: 08/17/21 09:29 Dose: 20 mg Documented by: Pharmacy Consult (Consult Rx Vancomycin Dosing) 1 each MISCELLANE DAILY PRN PRN Reason: Consult order Pharmacy Consult (Consult Rx Perform Med Rec) 1 each MISCELLANE ONCE PRN PRN Reason: Consult order Polyethylene Glycol (Polyethylene Glycol 3350 17 Gm Powd.Pack) 17 gm PO DAILY [facility] Last Admin: 08/17/21 09:30 Dose: 17 gm Documented by: Pregabalin (Pregabalin 100 Mg Capsule) 100 mg PO DAILY [facility] Last Admin: 08/17/21 09:29 Dose: 100 mg Documented by: Pregabalin (Pregabalin 200 Mg Capsule) 200 mg PO BEDTIME [facility] Last Admin: 08/16/21 22:19 Dose: 200 mg Documented by: Sodium Chloride (0.9 % Sodium Chloride Flush 3 Ml Syringe) 3 ml IVFLUSH QSHIFT [facility] Last Admin: 08/17/21 09:29 Dose: 3 ml Documented by: Trazodone HCl (Trazodone Hcl 50 Mg Tablet) 50 mg PO BEDTIME [facility] Last Admin: 08/12/21 21:41 Dose: 50 mg Documented by: Home Medications Medication Instructions Recorded Confirmed Last Taken Type aspirin 81 mg tablet,delayed 81 mg PO DAILY 05/23/20 08/12/21 08/11/21 History release blood sugar diagnostic #10 ea 05/23/20 05/28/21 Unknown History citalopram 20 mg tablet 20 mg PO DAILY 05/23/20 08/12/21 08/11/21 History diltiazem HCl 360 mg capsule,24 360 mg PO DAILY 05/23/20 08/12/21 08/11/21 History hr,extended release glipizide 10 mg tablet, extended 10 mg PO DAILY 05/23/20 08/12/21 08/11/21 History release 24 hr hydrochlorothiazide 12.5 mg capsule 12.5 mg PO DAILY 05/23/20 08/12/21 08/11/21 History lancets 28 gauge #100 ea 05/23/20 05/28/21 Unknown History levothyroxine 100 mcg tablet 100 mcg PO DAILY 05/23/20 08/12/21 08/11/21 History lisinopril 40 mg tablet 40 mg PO DAILY 05/23/20 08/12/21 08/11/21 History metformin 500 mg tablet,extended 1,000 mg PO BID 05/23/20 08/12/21 08/11/21 History release 24 hr metoprolol succinate 100 mg 100 mg PO DAILY 05/23/20 08/12/21 08/11/21 History tablet,extended release 24 hr pregabalin 200 mg capsule 200 mg PO BEDTIME 05/23/20 08/12/21 Unknown History sitagliptin 100 mg tablet 100 mg PO DAILY 05/23/20 08/12/21 08/11/21 History trazodone 50 mg tablet 50 mg PO BEDTIME 05/23/20 08/12/21 08/11/21 History atorvastatin 80 mg tablet 1 tab PO DAILY 08/12/21 08/12/21 08/11/21 History denosumab 60 mg/mL subcutaneous 60 mg SUBCUT [id number] 08/12/21 08/12/21 Unknown History syringe (Prolia) insulin glargine 100 unit/mL (3 5 unit SUBCUT BEDTIME 08/12/21 08/12/21 Unknown History mL) subcutaneous pen (Lantus Solostar U-100 Insulin) melatonin 5 mg tablet 5 mg PO BEDTIME 08/12/21 08/12/21 08/11/21 History meloxicam 7.5 mg tablet 1 tab PO DAILY 08/12/21 08/12/21 Unknown History pregabalin 100 mg capsule 100 mg PO DAILY 08/12/21 08/12/21 Unknown History Physical Exam Vital Signs: Vital Signs: Last Vital Signs Temp 98.4 F 08/17/21 11:54 Pulse 86 08/17/21 11:54 Resp 18 08/17/21 11:54 BP 129/63 08/17/21 11:54 Pulse Ox 96 08/17/21 11:54 BMI result Body Mass Index 26.1 Const: General: cooperative, healthy appearing and comfortable Orientation/consciousness: oriented to person, oriented to place and oriented to time HENMT: Head: Yes normal to inspection Neck: Neck: Yes normal visual inspection Carotids: no bruits Chest: Chest palpation & inspection: normal inspection of the chest Resp: Effort & Inspection: normal respiratory effort and able to speak in complete sentences Auscultation: clear to auscultation bilaterally, no crackles, no rales, no rhonchi and no wheezes Cardio: Rate: regular rate Rhythm: regular rhythm Heart sounds: S1 normal heart sound present and S2 normal heart sound present Bruits: no carotid bruits Peripheral pulses: Peripheral pulses 2+ throughout GI: Inspection: Yes normal to inspection Skin: Wounds: no wounds Hair: normal Neuro: General: oriented to person, oriented to place and oriented to time Cranial nerves: Yes CN's II-XII intact bilaterally and Yes Normal hearing present Cognition (Neuro): normal cognition Motor exam (neuro): 5/5 motor strength present throughout Extrem: Other: venous exam: No significant superficial varicosities or spider telangiectasias, minimal edema General: No clubbing, No cyanosis and No edema Psych: Appearance: grossly normal Mental Status: mental status grossly normal Speech and movement: Normal speech and movement present Results Labs Result diagrams: 08/16/21 07:26 08/14/21 04:45 Labs: Abnormal lab results 08/16/21 08/16/21 08/17/21 Range/Units 16:26 20:43 07:30 POC Glucose 187 H 122 H 131 H (60-115) mg/dL 08/17/21 Range/Units 11:24 POC Glucose 172 H (60-115) mg/dL Urine 08/12/21 Range/Units 15:42 Urine Color YELLOW Urine Appearance CLEAR Urine pH 8.0 (5.0-8.0) Ur Specific [place] 1.015 (1.005-1.025) Urine Protein NEG (NEG-TRACE) MG/DL Urine Glucose (UA) NEG (NEG) MG/DL All other labs normal. Assessment and Plan (1) PAD (peripheral artery disease): Status: Acute In short patient has cellulitis appears to have resolved. Her infection seems to be significantly better. For left foot appears to be doing well. Would recommend outpatient follow-up with us. Noninvasive testing was reviewed. I do suspect there is some element of arterial disease as she does not have palpable pulses. She will follow up with us as an outpatient. Thank you for allowing us to assist in her care. Procedures Date of Service Date of Service: 08/17/21
--- NOTE | 2021-08-17 14:32 | PM.DS ---
DS: Providers Provider Date of Service: 08/17/21 Date of admission: 08/12/21 16:41 Date of discharge: 08/17/21 Primary care physician: Roberto Carlos Sanford MD Consults: 08/13/21 07:54 Consult to Infectious Diseases Routine Consulting Provider: Quynh Gee Reason for consultation: foot ulcer/celluiitis -dm patient Has provider been notified: No 08/14/21 08:20 Consult to General Surgery [place]ine [place]ing [place] [facility] [place] [facility] [place] [facility] Reason for consultation: dm heel ulcer Has provider been notified: No 08/14/21 09:57 Consult to Gastroenterology Routine Consulting Provider: Aurelio Sweeney Reason for consultation: anemia iron def. h/h trending down Has provider been notified: No 08/15/21 09:10 Consult to Vascular Surgery Routine Consulting Provider: Vinnie Ravi Reason for consultation: right heel ulcer/non healing/?necrotic Has provider been notified: No 08/16/21 14:13 Consult to Vascular Surgery Routine Consulting Provider: Vinnie Ravi Reason for consultation: heel ulcer -necrotic Has provider been notified: No DS: Diagnosis Discharge Diagnosis (1) PAD (peripheral artery disease): Status: Acute DS: Summary Hospital Course Hospital Course: 76 year old with diabetes non insulin depedent, HLD controlled with statin, HTN that is is controlled with meds,? GERD,: Patient came to the hospital because having foot pain and swelling of the ankle area? And redness. ? She is poor historian, she says that foot pain and ulcer is there for couple months but she is getting more redness recently and having more pain. ?in addition patient fell down last week she says she tripped and fell did not loss consciousness has ecchymoses on the phase around the eyes and also a bump in the left frontal area of the skull. ?? Denies any new complaint of chest pain or shortness of breath or abdominal pain or fever or chills or nausea or vomiting Denies any cough Denies any weakness or numbness. Hospital course: Patient came to the hospital because of heel ulcer, also has mild cellulitis around the area. Patient started on IV antibiotic-he cellulitis area seems improved significantly, also has heel ulcer chronic and necrotic. Patient was seen by surgery and vascular, arterial duplex shows only a symmetrical arterial disease but no significant of obstruction. Further management needs to be done outpatient knee as per vascular. patient also need to follow up with wound care for heel ulcer. Patient also has possible iron/ B12 deficient anemia: Patient will need GI workup out patiently as per GI. Avoid NSAID and he ASA for now as per GI Dr. Sweeney. moniter cbc with pcp. Above management discussed with patient family in detail. patient and her family refused for rehab so going home with VNA. Above management discussed with the patient and her son in detail length they understand and in agreement with the above plan, time spent 50 minutes and 50% time spent on counseling. Significant findings: As above. Procedures performed: None. Treatment and response: As above. Complications: None. Time Spent with Patient Time attestation: Total time spent providing and/or coordinating discharge services: Discharge coordination time: Greater than 30 minutes Quality: Stroke Does the patient have a stroke diagnosis?: No Physical Exam Vital Signs: Vital Signs: Last Vital Signs Temp 98.4 F 08/17/21 11:54 Pulse 86 08/17/21 11:54 Resp 18 08/17/21 11:54 BP 129/63 08/17/21 11:54 Pulse Ox 96 08/17/21 11:54 BMI result Body Mass Index 26.1 Physical exam:Appearance: pleasant luxembourgish speaking female,Alert.? Oriented X3.? not in distress.? ? Ecchymosis of forehead and eye area as well as bump in? frontal forhead area improving. cvs: rrr, [id number] . res: clear to auscultation ,no rhonchii or wheezing abd: no rebound or guarding ,nt, bs present. ext pulses present , no cyanosis right foot? heel area : ulcer/echcar similar as admission, erythema improved,? no? fluctuation or discharge,? necrotic ulcer . neuro: axo3 , nonfocal. DS: Data Data Completed and Pending Completed studies during hospitalization [Text1]: Procedures Inspection of Gallbladder, Percutaneous Endoscopic Approach (06/03/21) Release Peritoneum, Open Approach (06/03/21) Repair Abdominal Wall, Open Approach (06/03/21) Resection of Gallbladder, Open Approach (06/03/21) Labs on day of discharge: Laboratory Results - last 24 hr 08/16/21 08/16/21 08/17/21 16:26 20:43 07:30 POC Glucose 187 H 122 H 131 H 08/17/21 11:24 POC Glucose 172 H Preliminary micro results at discharge 08/12/21 14:31 Blood Culture - Preliminary Blood - Venous No growth after 48 hours. 08/12/21 14:18 Blood Culture - Preliminary Blood - Venous No growth after 48 hours. cbc :wbc: 12.2 , h/h 8.3/27.9, pl:722 bmp: na: 141, k:4.4 , bun/0.82 Additional Comments Additional comments: US/US arterial duplex LE BI IMPRESSION: Asymmetrically diminished arterial velocities in the left common femoral and superficial femoral arteries, but no hemodynamically significant stenosis bilaterally. MR/MR ankle RT wo/w con IMPRESSION: Superficial skin wound at the posterior margin of the calcaneal tuberosity without underlying osteomyelitis or abscess. ? Minimal arthritis at the ankle and subtalar joint. ? Chronic changes of denervation atrophy in the foot musculature related to diabetic neuropathy.? Discharge Plan Discharge Patient Disposition: Home Health Service Discharge Diagnosis: heel ulcer necrotic , foot cellulitis Referrals: [facility] [Outside] - 1 Week Roberto Carlos Sanford MD [Primary Care Provider] - 1 Week Vinnie Ravi MD [Physician] - 1 Week (PLEASE FOLLOW UP WITH VASCULAR SERVICES OUTPATIENT) Aurelio Sweeney [Physician] - 1 Week (follow up outapteintly) Discharge Medications: New ferrous sulfate 324 mg (65 mg iron) Tablet,Delayed Release (Dr/Ec) 324 mg PO BIDWM Qty: 30 RF: 0 doxycycline hyclate 100 mg Tablet 100 mg PO Q12H Qty: 14 RF: 0 Continued tramadol 50 mg tablet 50 mg PO BID PRN (Reason: Pain) Qty: 60 RF: 5 omeprazole 20 mg capsule,delayed release(DR/EC) 20 mg PO BID 14 Days Qty: 28 RF: 0 atorvastatin 80 mg tablet 1 tab PO DAILY RF: 0 meloxicam 7.5 mg tablet 1 tab PO DAILY RF: 0 pregabalin 100 mg capsule 100 mg PO DAILY RF: 0 Lantus Solostar U-100 Insulin 100 unit/mL (3 mL) insulin pen 5 unit subcut BEDTIME RF: 0 melatonin 5 mg tablet 5 mg PO BEDTIME RF: 0 Prolia 60 mg/mL syringe 60 mg subcut [id number] RF: 0 sitagliptin 100 mg tablet 100 mg PO DAILY RF: 0 pregabalin 200 mg capsule 200 mg PO BEDTIME RF: 0 metformin 500 mg tablet extended release 24 hr 1,000 mg PO BID RF: 0 lisinopril 40 mg tablet 40 mg PO DAILY RF: 0 hydrochlorothiazide 12.5 mg capsule 12.5 mg PO DAILY RF: 0 citalopram 20 mg tablet 20 mg PO DAILY RF: 0 diltiazem HCl 360 mg capsule,extended release 24 hr 360 mg PO DAILY RF: 0 glipizide 10 mg tablet extended release 24hr 10 mg PO DAILY RF: 0 metoprolol succinate 100 mg tablet extended release 24 hr 100 mg PO DAILY RF: 0 trazodone 50 mg tablet 50 mg PO BEDTIME RF: 0 levothyroxine 100 mcg tablet 100 mcg PO DAILY RF: 0 (DME) lancets 28 gauge misc See Rx Instructions ea topical .MEDSUPPLY Qty: 100 RF: 0 (DME) blood sugar diagnostic Strip See Rx Instructions ea Not Applicable .MEDSUPPLY Qty: 10 RF: 0 Held aspirin 81 mg tablet,delayed release (DR/EC) 81 mg PO DAILY RF: 0 Hold Instructions: Resume on 10/27/21. Hold until gets Gi workup for anemia Discharge Orders: Discharge Order (Routine); Ordered 08/17/21 Ordered By: Andrea Cardoza Diet: advance to usual diet and diabetic diet Activity on Discharge: As tolerated Stand Alone Forms: Patient Portal Discharge page Other Ambulatory Orders: Complete Blood Count no Diff (Routine) Timeframe: 1 Week Facility: [facility] - Location: Laboratory Ordered By: Andrea Cardoza Care Plan Goals: Patient came to the hospital because of heel ulcer, also has mild cellulitis around the area. Patient started on IV antibiotic-he cellulitis area seems improved significantly, also has heel ulcer chronic and necrotic. Patient was seen by surgery and vascular, arterial duplex shows only a symmetrical arterial disease but no significant of obstruction. Further management needs to be done outpatient knee as per vascular. patient also need to follow up with wound care for heel ulcer. Patient also has possible iron/ B12 deficient anemia: Patient will need GI workup out patiently as per GI. Avoid NSAID and he ASA for now as per GI. Need to follow up outpatient with GI Dr. Sweeney. moniter cbc with pcp. Above management discussed with patient family in detail. Health Concerns: As above. Plan of Treatment: As above. Assessment: As above.
--- NOTE | 2021-08-17 14:44 | P.F2F_ITS ---
Service Date Service Date: 08/17/21 Encounter Date of encounter: 08/17/21 Encounter: dm foot ulcer , foot cellulitis Reasons for Services Reason for residential: medication management, medication treatment and teach disease management Reason for physical therapy: home safety and mobility, therapeutic exercises, restore joint function, gait/transfer training, assess need for DME, ADL training, energy conservation and other MD Overseeing Care: Roberto Carlos Sanford Homebound: Leaving the home is medically contraindicated at this time without the asist of a device and/or another person due th the listed conditions above and below. Homebound supporting statement: patient came in foot ulcer , cellulitis : given IV antibiotics foot cellulitis seems to be improved, patient had multiple comorbidities and also fall at home in addition patient is possible noncompliance to her medications as well as need help to go to appointments. Certification: Based on the above findings, I certify that this patient is confined to the home and needs intermittent residential care, physical therapy and/or speech therapy, or continues to need occupational therapy. The patient is under my care, and I have initiated the establishment of the plan of care. The patient will be followed by a physician who will periodically review the plan of care.
[2021-08-17 15:46] VITALS: BP 124/60; PULSE 83; RESP 17; TEMP 37.2; O2SAT 97
[2021-08-17 16:43] LABS: Glucose, Whole Blood 131 mg/dL (60-115)
--- NOTE | 2021-09-01 09:55 | P.CDIR_ITS ---
Documented by User: Mari Duke CCS, CDIS 09/01/21 10:00 Retrospective Query PHYSICIAN'S DOCUMENTATION REQUEST Date of Query: 09/01/21 0956 Patient Name: Mikal Canela Admit Date: 08/12/21 Dear Doctor, A review of the medical record indicates additional documentation may be needed. Please review below and update the documentation accordingly. Risk Factors/Clinical Indicators/Treatments ED: heel ulcer/cellulitis Ulcerative lesion surrounding the area with hottness and redness, meets SIRS criteria. HR 116 121 WBC 17.8 H&P: 08/12 - Sepsis, IV antibiotics with Vancomycin and Zosyn. PN: 08/13 - Sepsis resolving, foot cellulitis, no osteomyelitis. Please clarify which of the following most accurately describes the above abnormalities: * Sepsis * Systemic manifestations of infection, with 2 or more SIRS criteria which include: -Fever > 100.4F or hypothermia < 96.8 F -Leukocytosis - WBC > 12,000 or leukopenia, WBC < 4,000 or > 10% bands -Tachycardia > 90 beats/minute -Tachypnea - RR > 20 breaths/minute or PaCO2 < 32mmHg * Other * Unable to determine Use of terms such as suspected, likely, concern for, or probable (associated with a specific diagnosis that is being evaluated, monitored, or treated as if it exists) are acceptable and can be coded in the inpatient setting, when documented at the time of discharge. Thank you, Mari Duke CCS,CDIS Extension: [id number] Please use your independent medical judgment in providing your response. THIS QUERY IS PART OF THE PERMANENT MEDICAL RECORD Documented by User: Andrea Cardoza MD 09/02/21 17:47 Retrospective Query Provider Response: Other (sepsis )
== END 2021-08-17 16:45 | disposition home health service (06) | DRG 603 ==
LOC: HO.ED 16:40 → HO.EDOVER 17:00 → HO.S3 18:57
PROVIDERS: Admitting Provider Internal Medicine; Emergency Provider Emergency Medicine; PCP Internal Medicine; Visit Provider Internal Medicine
DX: L03.115 Cellulitis of right lower limb (principal); L97.429 Non-pressure chronic ulcer of left heel and midfoot with unspecified severity; M86.9 Osteomyelitis, unspecified; E78.5 Hyperlipidemia, unspecified; I10 Essential (primary) hypertension; K21.9 Gastro-esophageal reflux disease without esophagitis; E03.9 Hypothyroidism, unspecified; E11.621 Type 2 diabetes mellitus with foot ulcer; E11.69 Type 2 diabetes mellitus with other specified complication; D63.8 Anemia in other chronic diseases classified elsewhere; E11.51 Type 2 diabetes mellitus with diabetic peripheral angiopathy without gangrene; E11.40 Type 2 diabetes mellitus with diabetic neuropathy, unspecified; Z20.822 Contact with and (suspected) exposure to COVID-19; Z87.891 Personal history of nicotine dependence; Z88.6 Allergy status to analgesic agent; Z79.82 Long term (current) use of aspirin; Z79.4 Long term (current) use of insulin; Z79.890 Hormone replacement therapy; Z79.899 Other long term (current) drug therapy
CPT/HCPCS: 0241U; 36415; 70551; 71045; 73620; 73723; 80048; 80076; 80202; 81001; 81003; 82607; 82746; 82947; 83540; 83605; 83690; 83880; 85014; 85018; 85025; 85027; 86850; 86900; 86901; 87040; 87086; 93925; 96361; 96365; 96375; 97162; 99285; A9585; J2543; J3370

== ENCOUNTER → 2021-08-27 14:02 | Outpatient (BNVA) | payer MEDICARE, SELFPAY | PROVIDERS: PCP Internal Medicine; Visit Provider Surgery Vascular Surgery | DX: I73.9 Peripheral vascular disease, unspecified (principal) | CPT/HCPCS: 99212 ==

== ENCOUNTER 2021-09-24 13:01 | Inpatient (IN) | payer MEDICARE, SELFPAY ==
--- NOTE | ~2021-09-24 | US_ITS ---
EXAMINATION: US RETROPERITONEAL LIMITED (RENAL ONLY) CLINICAL INFORMATION: ELLEN. COMPARISON: Ultrasound abdomen complete 04/27/2021 TECHNIQUE: Real-time imaging of the kidneys. Technically limited study secondary to patient's inability to tolerate positioning. FINDINGS: RIGHT KIDNEY: 10.2 x 4.5 x 4.5 cm (SAG x AP x TRV). The kidney is normal in size, contour, and echogenicity. Renal cortical thickness is normal. No renal calculi or hydronephrosis. Benign-appearing right renal cysts measuring up to 2.8 cm, no imaging follow-up recommended. LEFT KIDNEY: 8.7 x 4.9 x 5.8 cm (SAG x AP x TRV). The kidney is normal in size, contour, and echogenicity. Renal cortical thickness is normal. No calculi or focal parenchymal lesions. No hydronephrosis. Partially imaged appears echogenic. US/US renal BI IMPRESSION: No hydronephrosis or nephrolithiasis. Partially imaged liver appears echogenic suggestive of hepatic steatosis or underlying liver disease. This could be further characterized with a dedicated right upper quadrant ultrasound if clinically indicated.
--- NOTE | ~2021-09-24 | XR_ITS ---
EXAMINATION: RIGHT FOOT AND LEFT SECOND TOE CLINICAL INFORMATION: Rule out osteomyelitis COMPARISON: Right foot study of July 25, 2017 TECHNIQUE: 3 views of the right foot and 3 views of the left toes. FINDINGS: 3 views of the left toes show some irregularity of the nail of the second distal phalanx with no underlying acute fracture or definite ulceration. There is limitations in evaluation of the distal interphalangeal joints due to toes being held in flexion and lateral view not toes. There is some degenerative change seen involving the fourth proximal interphalangeal joint. There is postsurgical repair of distal left fibular fracture. There is deformity from previous healed right fifth metatarsal fracture. Patient status post distal right fibular fracture. Old healed medial malleolar fracture. Vascular calcifications present. There is low density seen around the plantar and posterior aspects of the calcaneus without definite erosion identified. About the dorsum of the calcaneus there is a lack of soft tissue which appears be related to ulceration of the skin. There is edema seen within the plantar aspect of the calcaneus and midfoot. There appears be some edema about the fifth metatarsophalangeal joint. XR/XR toe LT min 2V IMPRESSION: Status post multiple old fractures as described. No definite acute fracture or bony erosion identified. There is low density seen around the dorsal and plantar aspects of the calcaneus with some adjacent edematous change which may be related to gas with ulceration..
--- NOTE | ~2021-09-24 | XR_ITS ---
EXAMINATION: RIGHT FOOT AND LEFT SECOND TOE CLINICAL INFORMATION: Rule out osteomyelitis COMPARISON: Right foot study of July 25, 2017 TECHNIQUE: 3 views of the right foot and 3 views of the left toes. FINDINGS: 3 views of the left toes show some irregularity of the nail of the second distal phalanx with no underlying acute fracture or definite ulceration. There is limitations in evaluation of the distal interphalangeal joints due to toes being held in flexion and lateral view not toes. There is some degenerative change seen involving the fourth proximal interphalangeal joint. There is postsurgical repair of distal left fibular fracture. There is deformity from previous healed right fifth metatarsal fracture. Patient status post distal right fibular fracture. Old healed medial malleolar fracture. Vascular calcifications present. There is low density seen around the plantar and posterior aspects of the calcaneus without definite erosion identified. About the dorsum of the calcaneus there is a lack of soft tissue which appears be related to ulceration of the skin. There is edema seen within the plantar aspect of the calcaneus and midfoot. There appears be some edema about the fifth metatarsophalangeal joint. XR/XR foot RT 2V IMPRESSION: Status post multiple old fractures as described. No definite acute fracture or bony erosion identified. There is low density seen around the dorsal and plantar aspects of the calcaneus with some adjacent edematous change which may be related to gas with ulceration..
[2021-09-24 13:24] VITALS: BP 122/86; BP 156/88; PULSE 124; PULSE 125; RESP 18; TEMP 37.1; O2SAT 100; O2SAT 98; BMI 24.5
--- NOTE | 2021-09-24 13:47 | ED.LOWEXIN ---
HPI - Extremity Injury (Lower) General Chief Complaint: Wound/Laceration Stated Complaint: R FOOT DIABETIC WOUND PER EMS Time Seen by Provider: 09/24/21 13:26 Source: patient Mode of arrival: wheelchair Limitations: no limitations History of Present Illness HPI Narrative: Patient comes to the emergency room complaining of right foot swelling. Patient has for some circulation, patient has been seen by vascular surgery, she has been told that she would likely need an amputation. According to the patient's son who is at bedside, the patient was started on antibiotics approximately 3 weeks ago. Today the patient's foot looks more red and swollen. Patient states that she has no pain or sensation. Patient is poor historian, according to the grandson the patient has not been diagnosed formally with dementia. But the patient has gradually been declining cognitively. Related Data Home Medications Medication Instructions Recorded Confirmed aspirin 81 mg tablet,delayed 81 mg PO DAILY 05/23/20 08/12/21 release blood sugar diagnostic #10 ea 05/23/20 05/28/21 citalopram 20 mg tablet 20 mg PO DAILY 05/23/20 08/12/21 diltiazem HCl 360 mg capsule,24 360 mg PO DAILY 05/23/20 08/12/21 hr,extended release glipizide 10 mg tablet, extended 10 mg PO DAILY 05/23/20 08/12/21 release 24 hr hydrochlorothiazide 12.5 mg capsule 12.5 mg PO DAILY 05/23/20 08/12/21 lancets 28 gauge #100 ea 05/23/20 05/28/21 levothyroxine 100 mcg tablet 100 mcg PO DAILY 05/23/20 08/12/21 lisinopril 40 mg tablet 40 mg PO DAILY 05/23/20 08/12/21 metformin 500 mg tablet,extended 1,000 mg PO BID 05/23/20 08/12/21 release 24 hr metoprolol succinate 100 mg 100 mg PO DAILY 05/23/20 08/12/21 tablet,extended release 24 hr pregabalin 200 mg capsule 200 mg PO BEDTIME 05/23/20 08/12/21 sitagliptin 100 mg tablet 100 mg PO DAILY 05/23/20 08/12/21 trazodone 50 mg tablet 50 mg PO BEDTIME 05/23/20 08/12/21 atorvastatin 80 mg tablet 1 tab PO DAILY 08/12/21 08/12/21 denosumab 60 mg/mL subcutaneous 60 mg SUBCUT [id number] 08/12/21 08/12/21 syringe (Prolia) insulin glargine 100 unit/mL (3 5 unit SUBCUT BEDTIME 08/12/21 08/12/21 mL) subcutaneous pen (Lantus Solostar U-100 Insulin) melatonin 5 mg tablet 5 mg PO BEDTIME 08/12/21 08/12/21 meloxicam 7.5 mg tablet 1 tab PO DAILY 08/12/21 08/12/21 pregabalin 100 mg capsule 100 mg PO DAILY 08/12/21 08/12/21 Previous Rx's Medication Instructions Recorded tramadol 50 mg tablet 50 mg PO BID PRN #60 tab 01/02/21 omeprazole 20 mg capsule,delayed 20 mg PO BID 14 Days #28 cap 04/12/21 release doxycycline hyclate 100 mg tablet 100 mg PO Q12H #14 tab 08/17/21 ferrous sulfate 324 mg (65 mg 324 mg PO BIDWM #30 tab 08/17/21 iron) tablet,delayed release Allergies Allergy/AdvReac Type Severity Reaction Status Date / Time ibuprofen [From MOTRIN] Allergy Unknown UPSET Verified 09/24/21 13:23 STOMACH Review of Systems Review of Systems: Constitutional : No Weight loss, No Fever, No Chills, No Night Sweats, No Fatigue, No Malaise ENT/Mouth : No Hearing loss, No Ear Pain, No Nasal Congestion, No Sinus Pain, No Hoarseness, No sore throat, No Rhinorrhea, No Swallowing Difficulty Eyes: No Eye Pain, No Swelling, No Redness, No Foreign Body, No Discharge, No Vision Changes Cardiovascular : No Chest Pain, No SOB, No Dyspnea on Exertion, No Orthopnea, No Edema, No Palpitations Respiratory : No Cough, No Sputum, No Wheezing, No Smoke Exposure, No Dyspnea Gastrointestinal : No Nausea, No Vomiting, No Diarrhea, No Constipation, No abdominal Pain, No Hematochezia, No Melena Genitourinary : no irregular bleeding, No Dysuria, No Urinary Frequency, No Hematuria, No Urinary Incontinence, No Urgency, No Flank Pain, No Urinary Flow Changes, No Hesitancy Musculoskeletal : No joint pain, No Myalgias, No Joint Swelling Skin : Nonhealing ulcer in the right heel and 2nd toe on the left Neuro : No Weakness, No Numbness, No Paresthesias, No Loss of Consciousness, No Dizziness, No Headache Psych : No Anxiety/Panic, No Depression, No SI/HI/AH/VH, No Social Issues, Heme/Lymph: No Bruising, No Bleeding,No Lymphadenopathy Endocrine : No Polyuria, No Polydipsia, No Temperature Intolerance [facility] Past Medical History Medical History Anemia in chronic kidney disease Anxiety Asthma Depression Diabetes mellitus Diabetic neuropathy Dysphagia Fibromyalgia GERD (gastroesophageal reflux disease) Hiatal hernia HTN (hypertension) Hx of gastritis Hypercholesterolemia Hypothyroidism IBS (irritable bowel syndrome) Mini stroke Mononeuritis On beta jeannie at home Osteoarthritis Osteoporosis PAD (peripheral artery disease) Vitamin B 12 deficiency Surgical History H/O local excision of skin lesion History of ankle surgery History of back surgery History of esophagogastroduodenoscopy (EGD) History of open reduction and internal fixation (ORIF) procedure Hx of hysterectomy Family History Family History Sister Diabetes Social History Social History Household Members: None Housing: Apartment Do you presently have visiting nurse or other home services: Yes Unable to assess alcohol history related to: Unknown Alcohol intake: never Patient Tobacco Use Status: Former Tobacco user Quit Date: >20 yr ago Use of substances other than those prescribed or required for medical reasons: No Advance Directives: Yes Advance Directives on File: Yes Advance Directives Date on File: 11/05/20 service: No Current occupational status: disabled 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 No acute distress. Eyes: Pupils equal, round and reactive to light. ENT: Pharynx normal. Neck: Normal inspection. Neck supple. No lymph nodes noted. No crepitus CVS: Normal heart rate and rhythm. Pulses normal. Normal S1 and S2 Respiratory: No respiratory distress. Breath sounds normal. No Wheezing. No rales Abdomen: Soft and nontender. No rigidity. No distention. good BS x4 Skin: Skin warm and dry. Nonhealing ulcers, especially in the right heel and 2nd toe, patient seems to not have any pain on palpation Extremities: No lower extremity edema. No lower extremity edema. No Lacerations. No Rash Neuro: CN 2 to 12 grossly intact. No motor deficit. No sensory deficit. Moving all extermities. No slurred speech. Course Course Course Narrative: At this time that this is not suspected. Patient was given a dose of Zosyn and vancomycin. Patient does not seem to have any new findings. Patient will need an amputation. At this time, Dr. Ravi is in the procedure, we will consult with Dr. Ravi if he wants to admit the patient for irritation versus arranging an office visit and discussing a petition further with the patient in an outpatient basis Physician observation started at 16:17 17:00 I discussed the patient with Dr. Ravi. Patient would benefit from admission, IV antibiotics and patient will likely have a right foot amputation MDM - Extremity Injury (Lower) Lab Data Result diagrams: 09/24/21 15:06 09/24/21 15:06 Labs: Lab Results 09/24/21 09/24/21 09/24/21 Range/Units 15:06 15:06 15:06 WBC 19.1 H (4.8-10.8) X10*3/uL RBC 3.61 L (4.20-5.50) X10*6/uL Hgb 8.9 L (12.0-16.0) g/dl Hct 29.3 L (37.0-47.0) % MCV 81.2 (80.0-98.0) fL MCH 24.7 L (27.0-33.0) pg MCHC 30.4 L (31.0-35.0) g/dl RDW 17.6 H (11.0-16.0) % Plt Count 725 H (160-400) X10*3/uL MPV 9.8 (9.4-12.3) fL Immature Gran % (Auto) 0.6 H (0.0-0.4) % Neut % (Auto) 80.0 H (45-73) % Lymph % (Auto) 12.3 L (20-40) % [place] % (Auto) 6.7 (2-11) % Eos % (Auto) 0.1 (0-4) % Baso % (Auto) 0.3 (0-2) % Lymph # (Auto) 2.4 (1.2-4.9) X10*3/uL [place] # (Auto) 1.3 H (0.1-1.2) X10*3/uL Eos # (Auto) 0.0 (0.0-0.4) X10*3/uL Baso # (Auto) 0.1 (0.0-0.2) X10*3/uL Abs Immat Gran (auto) 0.12 H (0.00-0.03) X10*3/uL Absolute Neuts (auto) 15.3 H (2.0-8.3) x10*3/uL Absolute Nucleated RBC 0.000 (0.0-0.012) X10*3/uL Nucleated RBC % (auto) 0.0 (0.0-0.2) /100WBC PT (9.9-13.0) SEC INR (0.9-1.1) Sodium 140 (135-145) mmol/L Potassium 4.2 (3.3-5.1) mmol/L Chloride 102 (96-108) mmol/L Carbon Dioxide 25 (22-29) mmol/L Anion Gap 17 (12-20) BUN 17 H D (9-16) mg/dL Creatinine 0.83 (0.5-1.4) mg/dL Estim Creat Clear Calc 47.7 Estimated GFR > 60 Random Glucose 91 (60-115) mg/dL Lactic Acid (0.5-2.0) mmol/L Calcium 9.2 D (8.4-10.2) mg/dL Total Bilirubin 0.3 (0.0-1.0) mg/dL Direct Bilirubin 0.2 (0.0-0.5) mg/dL AST 14 (5-31) U/L ALT 13 (0-31) U/L Alkaline Phosphatase 131 H (39-117) U/L Total Protein 7.0 (6.5-8.0) g/dL Albumin 3.5 (3.5-5.0) g/dL COVID-19 (MOHSEN) Negative (Negative) COVID-19 Clin Com See Note 09/24/21 09/24/21 Range/Units 15:06 16:44 WBC (4.8-10.8) X10*3/uL RBC (4.20-5.50) X10*6/uL Hgb (12.0-16.0) g/dl Hct (37.0-47.0) % MCV (80.0-98.0) fL MCH (27.0-33.0) pg MCHC (31.0-35.0) g/dl RDW (11.0-16.0) % Plt Count (160-400) X10*3/uL MPV (9.4-12.3) fL Immature Gran % (Auto) (0.0-0.4) % Neut % (Auto) (45-73) % Lymph % (Auto) (20-40) % [place] % (Auto) (2-11) % Eos % (Auto) (0-4) % Baso % (Auto) (0-2) % Lymph # (Auto) (1.2-4.9) X10*3/uL [place] # (Auto) (0.1-1.2) X10*3/uL Eos # (Auto) (0.0-0.4) X10*3/uL Baso # (Auto) (0.0-0.2) X10*3/uL Abs Immat Gran (auto) (0.00-0.03) X10*3/uL Absolute Neuts (auto) (2.0-8.3) x10*3/uL Absolute Nucleated RBC (0.0-0.012) X10*3/uL Nucleated RBC % (auto) (0.0-0.2) /100WBC PT 14.0 H (9.9-13.0) SEC INR 1.2 H (0.9-1.1) Sodium (135-145) mmol/L Potassium (3.3-5.1) mmol/L Chloride (96-108) mmol/L Carbon Dioxide (22-29) mmol/L Anion Gap (12-20) BUN (9-16) mg/dL Creatinine (0.5-1.4) mg/dL Estim Creat Clear Calc Estimated GFR Random Glucose (60-115) mg/dL Lactic Acid 1.1 (0.5-2.0) mmol/L Calcium (8.4-10.2) mg/dL Total Bilirubin (0.0-1.0) mg/dL Direct Bilirubin (0.0-0.5) mg/dL AST (5-31) U/L ALT (0-31) U/L Alkaline Phosphatase (39-117) U/L Total Protein (6.5-8.0) g/dL Albumin (3.5-5.0) g/dL COVID-19 (MOHSEN) (Negative) COVID-19 Clin Com Discharge Plan Discharge Clinical Impression: Chronic foot ulcer Patient Disposition: Admitted As Inpatient Prescriptions: No Action tramadol 50 mg tablet 50 mg PO BID PRN (Reason: Pain) Qty: 60 5RF omeprazole 20 mg capsule,delayed release(DR/EC) 20 mg PO BID 14 Days Qty: 28 0RF atorvastatin 80 mg tablet 1 tab PO DAILY 0RF meloxicam 7.5 mg tablet 1 tab PO DAILY 0RF pregabalin 100 mg capsule 100 mg PO DAILY 0RF Lantus Solostar U-100 Insulin 100 unit/mL (3 mL) insulin pen 5 unit subcut BEDTIME 0RF melatonin 5 mg tablet 5 mg PO BEDTIME 0RF Prolia 60 mg/mL syringe 60 mg subcut [id number] 0RF ferrous sulfate 324 mg (65 mg iron) Tablet,Delayed Release (Dr/Ec) 324 mg PO BIDWM Qty: 30 0RF doxycycline hyclate 100 mg Tablet 100 mg PO Q12H Qty: 14 0RF sitagliptin 100 mg tablet 100 mg PO DAILY 0RF pregabalin 200 mg capsule 200 mg PO BEDTIME 0RF metformin 500 mg tablet extended release 24 hr 1,000 mg PO BID 0RF lisinopril 40 mg tablet 40 mg PO DAILY 0RF hydrochlorothiazide 12.5 mg capsule 12.5 mg PO DAILY 0RF citalopram 20 mg tablet 20 mg PO DAILY 0RF aspirin 81 mg tablet,delayed release (DR/EC) 81 mg PO DAILY 0RF Hold Instructions: Resume on 10/27/21. Hold until gets Gi workup for anemia diltiazem HCl 360 mg capsule,extended release 24 hr 360 mg PO DAILY 0RF glipizide 10 mg tablet extended release 24hr 10 mg PO DAILY 0RF metoprolol succinate 100 mg tablet extended release 24 hr 100 mg PO DAILY 0RF trazodone 50 mg tablet 50 mg PO BEDTIME 0RF levothyroxine 100 mcg tablet 100 mcg PO DAILY 0RF (DME) lancets 28 gauge misc See Rx Instructions ea topical .MEDSUPPLY Qty: 100 0RF Rx Instructions: As directed (DME) blood sugar diagnostic Strip See Rx Instructions ea Not Applicable .MEDSUPPLY Qty: 10 0RF Rx Instructions: As directed
[2021-09-24 15:10] LABS: MANUAL DIFF FLAG NO
[2021-09-24 15:15] LABS: Basophils Absolute Auto 0.1 X10*3/uL (0.0-0.2); Basophils Percent Auto 0.3 % (0-2); Eosinophils Percent Auto 0.1 % (0-4); Hematocrit 29.3 % (37.0-47.0); Hemoglobin 8.9 g/dl (12.0-16.0); Imm Gran Abs Auto 0.12 X10*3/uL (0.00-0.03); Imm Gran Pct Auto 0.6 % (0.0-0.4); Lymphocytes Absolute Auto 2.4 X10*3/uL (1.2-4.9); Lymphocytes Percent Auto 12.3 % (20-40); Mean Corpuscular HGB Conc 30.4 g/dl (31.0-35.0); Mean Corpuscular Hemoglobin 24.7 pg (27.0-33.0); Mean Corpuscular Volume 81.2 fL (80.0-98.0); Mean Platelet Volume 9.8 fL (9.4-12.3); Monocytes Absolute Auto 1.3 X10*3/uL (0.1-1.2); Monocytes Percent Auto 6.7 % (2-11); Neutrophils Absolute Auto 15.3 x10*3/uL (2.0-8.3); Platelet Count 725 X10*3/uL (160-400); Red Blood Count 3.61 X10*6/uL (4.20-5.50); Red Cell Distribution Width 17.6 % (11.0-16.0); White Blood Count 19.1 X10*3/uL (4.8-10.8)
[2021-09-24] MEDS: 0.9 % Sodium Chloride 1,000 ML 999 ML IVCONT (15:20)
[2021-09-24 15:22] LABS: INTERNATIONAL NORM RATIO 1.2 (0.9-1.1)
[2021-09-24 15:28] LABS: Alanine Aminotransferase 13 U/L (0-31); Albumin Level 3.5 g/dL (3.5-5.0); Alkaline Phosphatase 131 U/L (39-117); Anion Gap 17 (12-20); Aspartate Amino Transferase 14 U/L (5-31); Bilirubin Direct 0.2 mg/dL (0.0-0.5); Bilirubin Total 0.3 mg/dL (0.0-1.0); Blood Urea Nitrogen 17 mg/dL (9-16); Calcium 9.2 mg/dL (8.4-10.2); Carbon Dioxide 25 mmol/L (22-29); Chloride 102 mmol/L (96-108); Creatinine Clr Calc Pharmacy 47.7; Estimated Glomerular Filt Rate > 60; Glucose Random 91 mg/dL (60-115); Potassium 4.2 mmol/L (3.3-5.1); Sodium 140 mmol/L (135-145)
[2021-09-24 15:42] LABS: COVID-19 Test Negative (Negative); IDNOW Serial# 9DD0AD1C
[2021-09-24] MEDS: Piperacillin Sodium/Tazobactam 3.375 GM in 0.9 % Sodium Chloride 50 ML IV ×2 (16:42→22:45)
[2021-09-24 16:43] VITALS: BP 138/71; PULSE 111; RESP 18; TEMP 36.8; O2SAT 98
--- NOTE | 2021-09-24 16:46 | PC.NURSE ---
pt resting quietly. in addition to large necrotic wound on right heel there is a sml wound on right great toe and left 2nd toe. all are dry wound with dark wound beds.
[2021-09-24 16:59] LABS: Lactic Acid 1.1 mmol/L (0.5-2.0)
--- NOTE | 2021-09-24 17:16 | PHA.MEDREC ---
Pharmacy Consult ? Medication Reconciliation Pharmacy has completed the medication reconciliation. Spoke with crista who had her med boxes with him.
[2021-09-24 17:44] VITALS: BP 152/88; PULSE 112; RESP 16; O2SAT 98
[2021-09-24] MEDS: vancomycin HCL 750 MG in 0.9 % Sodium Chloride 250 ML 265 MG IV (17:44)
--- NOTE | 2021-09-24 17:45 | PC.NURSE ---
pt sleeping. repositioned and feet elevated. barely wakes for repositioning. st on monitor.
--- NOTE | 2021-09-24 17:48 | P.HPHOSP_ITS ---
History of Present Illness Date of Service: 09/24/21 Chief Complaint: Foot pain, increased weakness A 76 years old lady with PMH of PVD, HTN, diabetes, hypothyroidism among others who presents to the hospital with right foot pain and swelling. She reported that she started oral antibiotic almost 3 weeks ago but her foot has been getting worse with more swelling and erythema. She denies having any sensation in the foot with no associated pain. She has a very poor historian and she could not contribute more than that but she denies chills, fevers, chest pain, change in bowel habit. In the emergency she was found septic and started broad-spectrum antibiotics. Evaluated by vascular surgery team who recommended admission for possible amputation. Review of Systems Review of Systems: No fever, chills but has generalized weakness No chest pain, palpitation No shortness of breath or coughing No abdominal pain, nausea or vomiting No urinary symptoms Right foot pain, swelling and erythema PMFSH Medical History Anemia in chronic kidney disease Anxiety Asthma Depression Diabetes mellitus Diabetic neuropathy Dysphagia Fibromyalgia GERD (gastroesophageal reflux disease) Hiatal hernia HTN (hypertension) Hx of gastritis Hypercholesterolemia Hypothyroidism IBS (irritable bowel syndrome) Mini stroke Mononeuritis On beta jeannie at home Osteoarthritis Osteoporosis PAD (peripheral artery disease) Vitamin B 12 deficiency Family History Sister Diabetes Surgical History H/O local excision of skin lesion History of ankle surgery History of back surgery History of esophagogastroduodenoscopy (EGD) History of open reduction and internal fixation (ORIF) procedure Hx of hysterectomy Social History Household Members: None Housing: Apartment Do you presently have visiting nurse or other home services: Yes Unable to assess alcohol history related to: Unknown Alcohol intake: never Patient Tobacco Use Status: Former Tobacco user Quit Date: >20 yr ago Use of substances other than those prescribed or required for medical reasons: No Advance Directives: Yes Advance Directives on File: Yes Advance Directives Date on File: 11/05/20 service: No Current occupational status: disabled 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 Meds Allergies Allergy/AdvReac Type Severity Reaction Status Date / Time ibuprofen [From MOTRIN] Allergy Unknown UPSET Verified 09/24/21 13:23 STOMACH Home Medications Medication Instructions Recorded Confirmed Last Taken Type aspirin 81 mg tablet,delayed 81 mg PO DAILY 05/23/20 09/24/21 08/11/21 History release citalopram 20 mg tablet 20 mg PO DAILY 05/23/20 09/24/21 08/11/21 History diltiazem HCl 360 mg capsule,24 360 mg PO DAILY 05/23/20 09/24/21 08/11/21 History hr,extended release glipizide 10 mg tablet, extended 10 mg PO DAILY 05/23/20 09/24/21 08/11/21 History release 24 hr hydrochlorothiazide 12.5 mg capsule 12.5 mg PO DAILY 05/23/20 09/24/21 08/11/21 History levothyroxine 100 mcg tablet 100 mcg PO DAILY 05/23/20 09/24/21 08/11/21 History lisinopril 40 mg tablet 40 mg PO DAILY 05/23/20 09/24/21 08/11/21 History metformin 500 mg tablet,extended 1,000 mg PO BID 05/23/20 09/24/21 08/11/21 History release 24 hr metoprolol succinate 100 mg 100 mg PO DAILY 05/23/20 09/24/21 08/11/21 History tablet,extended release 24 hr pregabalin 200 mg capsule 200 mg PO BEDTIME 05/23/20 09/24/21 Unknown History sitagliptin 100 mg tablet 100 mg PO DAILY 05/23/20 09/24/21 08/11/21 History trazodone 50 mg tablet 50 mg PO BEDTIME 05/23/20 09/24/21 08/11/21 History atorvastatin 80 mg tablet 1 tab PO DAILY 08/12/21 09/24/21 08/11/21 History denosumab 60 mg/mL subcutaneous 60 mg SUBCUT [id number] 08/12/21 09/24/21 Unknown History syringe (Prolia) insulin glargine 100 unit/mL (3 15 unit SUBCUT BEDTIME 08/12/21 09/24/21 Unknown History mL) subcutaneous pen (Lantus Solostar U-100 Insulin) melatonin 5 mg tablet 10 mg PO BEDTIME 08/12/21 09/24/21 08/11/21 History meloxicam 7.5 mg tablet 1 tab PO DAILY 08/12/21 09/24/21 Unknown History pregabalin 100 mg capsule 100 mg PO DAILY 08/12/21 09/24/21 Unknown History omeprazole 20 mg capsule,delayed 20 mg PO DAILY 09/24/21 09/24/21 Unknown History release oxycodone 5 mg tablet 1 tab PO BID PRN 09/24/21 09/24/21 Unknown History Physical Exam Vital Signs and Narrative: Vital Signs: Last Vital Signs Temp 98.2 F 09/24/21 16:43 Pulse 112 H 09/24/21 17:44 Resp 16 09/24/21 17:44 BP 152/88 H 09/24/21 17:44 Pulse Ox 98 09/24/21 17:44 BMI result Body Mass Index 24.5 Const: Other: Constitutional : Alert, looks lethargic, not in distress Neck : Normal inspection, Supple Cardiovascular : RRR, S1 S2, no lower extremity edema Respiratory : Good bilateral air entry, no crackles, wheezes or rhonchi Gastrointestinal: soft, lax, Normal bowel sounds, Non tender Skin : Dry gangrene in the right foot, as the pictures Neurological : Alert & oriented to self but not to place, No focal deficit Results Labs CBC and Chem 7: 09/25/21 07:26 09/25/21 07:26 Labs: Laboratory Results - last 24 hr 09/24/21 09/24/21 09/24/21 15:06 15:06 15:06 MCV 81.2 MCH 24.7 L MCHC 30.4 L RDW 17.6 H Plt Count 725 H MPV 9.8 Immature Gran % (Auto) 0.6 H Neut % (Auto) 80.0 H Lymph % (Auto) 12.3 L [place] % (Auto) 6.7 Eos % (Auto) 0.1 Baso % (Auto) 0.3 Lymph # (Auto) 2.4 [place] # (Auto) 1.3 H Eos # (Auto) 0.0 Baso # (Auto) 0.1 Abs Immat Gran (auto) 0.12 H Absolute Neuts (auto) 15.3 H Absolute Nucleated RBC 0.000 Nucleated RBC % (auto) 0.0 PT INR Anion Gap 17 Estim Creat Clear Calc 47.7 Estimated GFR > 60 Random Glucose 91 Lactic Acid Calcium 9.2 D Total Bilirubin 0.3 Direct Bilirubin 0.2 AST 14 ALT 13 Alkaline Phosphatase 131 H Total Protein 7.0 Albumin 3.5 COVID-19 (MOHSEN) Negative COVID-19 Clin Com See Note 09/24/21 09/24/21 15:06 16:44 MCV MCH MCHC RDW Plt Count MPV Immature Gran % (Auto) Neut % (Auto) Lymph % (Auto) [place] % (Auto) Eos % (Auto) Baso % (Auto) Lymph # (Auto) [place] # (Auto) Eos # (Auto) Baso # (Auto) Abs Immat Gran (auto) Absolute Neuts (auto) Absolute Nucleated RBC Nucleated RBC % (auto) PT 14.0 H INR 1.2 H Anion Gap Estim Creat Clear Calc Estimated GFR Random Glucose Lactic Acid 1.1 Calcium Total Bilirubin Direct Bilirubin AST ALT Alkaline Phosphatase Total Protein Albumin COVID-19 (MOHSEN) COVID-19 Clin Com Imaging Radiologist's Impressions: Impressions Foot X-Ray 09/24/21 14:23 IMPRESSION: Status post multiple old fractures as described. No definite acute fracture or bony erosion identified. There is low density seen around the dorsal and plantar aspects of the calcaneus with some adjacent edematous change which may be related to gas with ulceration.. Toe X-Ray 09/24/21 14:23 IMPRESSION: Status post multiple old fractures as described. No definite acute fracture or bony erosion identified. There is low density seen around the dorsal and plantar aspects of the calcaneus with some adjacent edematous change which may be related to gas with ulceration.. Assessment and Plan (1) Dry gangrene: Status: Acute (2) Cellulitis of foot, right: Status: Acute (3) Sepsis: Status: Acute Plan A 76 years old lady with PMH of PVD, HTN, diabetes, hypothyroidism among others who presents to the hospital with right foot pain and swelling. Sepsis Secondary to right foot cellulitis, dry gangrene Who ruled in with infection, tachycardia and elevated WBCs Negative lactic acid Blood cultures Start broad-spectrum antibiotics Get vascular surgery evaluation Type 2 diabetes Hold oral medications Insulin next Lyme diabetic diet Hypertension continue Cardizem, lisinopril and metoprolol Neuropathy continue pregabalin PVD continue aspirin and atorvastatin DVT PPX Heparin Quality Stroke Does the patient have a stroke diagnosis?: No VTE Prior VTE?: No VTE Risk Level:: Medical - moderate - high VTE Device Contraindication: Treatment Not Indicated VTE Drug Contraindication: N/A - Med Ordered
--- NOTE | 2021-09-24 18:49 | PC.NURSE ---
pt has been repositioned in hospital bed. responds to voice. assisted to take PO pudding and milk. becomes more alert with interventions.
[2021-09-24 18:50] LABS: Glucose, Whole Blood 87 mg/dL (60-115)
--- NOTE | 2021-09-24 18:59 | PHA.PROG ---
Admission Date/Time: September 24, 2021 17:42 Indication: SKIN/SKIN STRUCTURE INF Weight in k.7 kg Adjusted body weight in K.5 KG [place] body weight in K.4 KG Obesity Dosing Indication % IBW: Serum Creatinine - Last 168 Hours 09/24/21 15:06 Creatinine 0.83 Estimated CrCl and GFR - Last 168 Hours 09/24/21 15:06 Estim Creat Clear Calc 47.7 Estimated GFR > 60 Vancomycin Loading Dose: 750 MG + 500 MG = 1250 MG Current Vancomycin Dosing Regimen: 1000 MG Q24H Vancomycin Monitoring using AUC goal of 400 - 600 range with trough as surrogate marker: PREDICTED AUC 456, PREDICTED TROUGH 13.6 Date and Time for next Vancomycin Level to be drawn: 09/26/21 @1700 Pharmacist Comments on Vancomycin Plan: 750 MG X 1 ORDERED IN ED, ORDERED ADDITIONAL 500 MG DOSE Vancomycin dosing will take advantage of [employer] as a clinical decision support tool that uses Bayesian modeling to calculate individual patient's pharmacokinetic parameters and forecast the patient's drug concentration time course with the target goal AUC 24 range of 400 - 600 mg/L/hr.
[2021-09-24 19:41] VITALS: BP 136/63; PULSE 116; RESP 17; TEMP 36.8; O2SAT 100
[2021-09-24 20:09] LABS: Glucose, Whole Blood 153 mg/dL (60-115)
[2021-09-24 20:13] VITALS: BP 136/63; PULSE 116; RESP 16; O2SAT 100
[2021-09-24] MEDS: traZODone HCL 50 MG TABLET PO (21:58)
[2021-09-24] MEDS: Pregabalin 200 MG CAPSULE PO (21:58)
[2021-09-24] MEDS: Insulin Glargine,Hum.rec.anlog 100 UNIT/ML 10 ML VIAL 15 UNIT SUBCUT (21:59)
[2021-09-24 22:09] LABS: Glucose, Whole Blood 142 mg/dL (60-115)
[2021-09-24 22:14] VITALS: BP 167/78; PULSE 108; RESP 13; O2SAT 99
[2021-09-24] MEDS: Heparin Sodium,Porcine 5,000 UNIT/ML VIAL 5000 UNIT SUBCUT (22:17)
[2021-09-24] MEDS: Metoprolol Succinate ER 100 MG TAB.ER.24H PO (22:17)
[2021-09-25] VITALS (7 sets, daily range): BP systolic 119–162; BP diastolic 70–82; PULSE 84–104; RESP 12–20; TEMP 35.9–37.2; O2SAT 98–100
[2021-09-25] MEDS: Levothyroxine Sodium 100 MCG TABLET PO (07:05)
[2021-09-25] MEDS: Piperacillin Sodium/Tazobactam 3.375 GM in 0.9 % Sodium Chloride 50 ML IV ×4 (07:05→21:11)
[2021-09-25] MEDS: Omeprazole 20 MG CAPSULE.DR PO (07:05)
[2021-09-25 07:12] LABS: Glucose, Whole Blood 72 mg/dL (60-115)
[2021-09-25 07:59] LABS: Hematocrit 27.2 % (37.0-47.0); Hemoglobin 8.2 g/dl (12.0-16.0); Mean Corpuscular HGB Conc 30.1 g/dl (31.0-35.0); Mean Corpuscular Hemoglobin 24.6 pg (27.0-33.0); Mean Corpuscular Volume 81.7 fL (80.0-98.0); Platelet Count 590 X10*3/uL (160-400); Red Blood Count 3.33 X10*6/uL (4.20-5.50); Red Cell Distribution Width 17.5 % (11.0-16.0); White Blood Count 14.9 X10*3/uL (4.8-10.8)
[2021-09-25 08:15] LABS: Anion Gap 13 (12-20); Blood Urea Nitrogen 13 mg/dL (9-16); Calcium 8.4 mg/dL (8.4-10.2); Carbon Dioxide 24 mmol/L (22-29); Chloride 110 mmol/L (96-108); Creatinine Clr Calc Pharmacy 52.8; Estimated Glomerular Filt Rate > 60; Glucose Random 97 mg/dL (60-115); Potassium 3.9 mmol/L (3.3-5.1); Sodium 143 mmol/L (135-145)
--- NOTE | 2021-09-25 09:13 | PHA.PROG ---
Admission Date/Time: September 24, 2021 17:42 Indication: Sepsis, right foot cellulitis Weight in k.7 kg Adjusted body weight in K.5 KG [place] body weight in K.4 KG Obesity Dosing Indication % IBW:119% Serum Creatinine - Last 168 Hours 09/24/21 09/25/21 15:06 07:26 Creatinine 0.83 0.75 Estimated CrCl and GFR - Last 168 Hours 09/24/21 09/25/21 15:06 07:26 Estim Creat Clear Calc 47.7 52.8 Estimated GFR > 60 > 60 Vancomycin Loading Dose: 09/24: 750 mg @ 1744 + 500 mg @ 2209 Current Vancomycin Dosing Regimen: 1000 mg Q24H Date and Time for next Vancomycin Level to be drawn: 09/26 @ 1500 Pharmacist Comments on Vancomycin Plan: Patient SCr has decrease a little Patient's age is >65 therefore reguire geriatric dose Will increase dose to 1250 mg Q24H. Expected AUC 455 with a trough of 12.6 Pharmacy to monitor renal function daily Jenifer Rojas PharmD Vancomycin dosing will take advantage of [employer] as a clinical decision support tool that uses Bayesian modeling to calculate individual patient's pharmacokinetic parameters and forecast the patient's drug concentration time course with the target goal AUC 24 range of 400 - 600 mg/L/hr.
[2021-09-25 09:45] LABS: Estimated Average Glucose 180 mg/dL; Hemoglobin A1c % 7.9 %
[2021-09-25 09:54] LABS: Glucose, Whole Blood 74 mg/dL (60-115)
--- NOTE | 2021-09-25 10:05 | MHC.CM.PN ---
CM attempted to meet with Patient at bedside but she appeared to be sleeping soundly; CM spoke with Primary Contact/GRANDSON/Ranjan @ [phone] and addressed IMM with him (original to be mailed certified letter to him and a copy placed on the chart). . Patient lives in an apartment with her Grandson/Ranjan and she uses both a walker and w/c to assist with mobility. Patient receives a [facility] and RN for wound care and the goal for dc is home/resume said services. CM has initiated and will follow for dc planning. Patient's PCP is Dr. Roberto Carlos Sanford and patient has received CovKSE vax X2 (unsure of brand).
[2021-09-25] MEDS: 0.9 % Sodium Chloride Flush 3 ML SYRINGE IVFLUSH ×3 (10:46→21:11)
[2021-09-25] MEDS: Heparin Sodium,Porcine 5,000 UNIT/ML VIAL 5000 UNIT SUBCUT ×3 (10:49→22:17)
--- NOTE | 2021-09-25 10:54 | P.CONGS_ITS ---
History of Present Illness Consult details Consult date: 09/25/21 Narrative: Complex 76-year-old female well known to me for nonhealing ulcers. [facility]. In addition she has had prior noninvasive arterial testing which was fairly stable from our perspective. She had this nonhealing he left heel ulcer. At the time of her last visit she had elected to conservatively manage this and see how we would go. She was most recently found to have some cellulitis associated with it she was subsequently admitted for workup. She now presents to us for vascular evaluation. Review of Systems Review of Systems: Yes all other systems are reviewed and are negative Constitutional: Constitutional: Reports no additional constitutional complaints ENT: Reports Normal hearing present Cardiovascular: Cardiovascular: Denies chest pain, Denies chest pain at rest, Denies chest pain with activity and Denies pedal edema Respiratory: Respiratory: Denies cough Gastrointestinal: Gastrointestinal: Denies abdominal pain Musculoskeletal: Musculoskeletal: Denies abnormal gait, Denies muscle cramps and Denies radiating pain into limb Integumentary/Breasts: Skin/Breast: Denies skin ulcer and Denies wounds Neurologic: Reports Normal hearing present and Denies abnormal gait Psychiatric: Psychiatric: Reports no additional psychiatric complaints PMFSH Past Medical History Medical History Anemia in chronic kidney disease Anxiety Asthma Depression Diabetes mellitus Diabetic neuropathy Dysphagia Fibromyalgia GERD (gastroesophageal reflux disease) Hiatal hernia HTN (hypertension) Hx of gastritis Hypercholesterolemia Hypothyroidism IBS (irritable bowel syndrome) Mini stroke Mononeuritis On beta jeannie at home Osteoarthritis Osteoporosis PAD (peripheral artery disease) Vitamin B 12 deficiency Family History Family History Sister Diabetes Surgical History Surgical History H/O local excision of skin lesion History of ankle surgery History of back surgery History of esophagogastroduodenoscopy (EGD) History of open reduction and internal fixation (ORIF) procedure Hx of hysterectomy Social History Social History Household Members: None Housing: Apartment Do you presently have visiting nurse or other home services: Yes Unable to assess alcohol history related to: Unknown Alcohol intake: never Patient Tobacco Use Status: Former Tobacco user Quit Date: >20 yr ago Use of substances other than those prescribed or required for medical reasons: No Advance Directives: Yes Advance Directives on File: Yes Advance Directives Date on File: 11/05/20 service: No Current occupational status: disabled 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 Meds Allergies Allergy/AdvReac Type Severity Reaction Status Date / Time ibuprofen [From MOTRIN] Allergy Unknown UPSET Verified 09/24/21 13:23 STOMACH Active Medications: Current Medications Acetaminophen (Acetaminophen 325 Mg Tablet) 650 mg PO Q6H PRN PRN Reason: Pain, Mild (Pain Scale 1-3) Aspirin (Aspirin Enteric Coated 81 Mg Tablet.) 81 mg PO DAILY [facility] Last Admin: 09/25/21 10:46 Dose: Not Given Documented by: Atorvastatin Calcium (Atorvastatin Calcium 80 Mg Tablet) 80 mg PO DAILY [facility] Last Admin: 09/25/21 10:46 Dose: Not Given Documented by: Diltiazem HCl (Diltiazem Hcl Cd 180 Mg Cap.Er.24h) 360 mg PO DAILY [facility]; Protocol Last Admin: 09/25/21 10:46 Dose: Not Given Documented by: Ferrous Sulfate (Ferrous Sulfate 324 Mg Tablet.) 324 mg PO BIDWM [facility] Last Admin: 09/25/21 10:46 Dose: Not Given Documented by: Heparin Sodium (Porcine) (Heparin Sodium,Porcine 5,000 Unit/Ml Vial) 5,000 unit SUBCUT Q8H [facility] Last Admin: 09/25/21 10:49 Dose: 5,000 unit Documented by: Hydrochlorothiazide (Hydrochlorothiazide 12.5 Mg Tablet) 12.5 mg PO DAILY [facility]; Protocol Last Admin: 09/25/21 10:46 Dose: Not Given Documented by: Piperacillin Sod/Tazobactam (Sod 3.375 gm/ Sodium Chloride) 50 mls @ 100 mls/hr IV Q6H [facility] Last Infusion: 09/25/21 10:10 Dose: Infused Documented by: Vancomycin HCl 1,250 mg/ (Sodium Chloride) 250 mls @ 166.667 mls/hr IV Q24H [facility] Insulin Glargine (Insulin Glargine,Hum.Rec.Anlog 100 Unit/Ml 10 Ml Vial) 15 unit SUBCUT BEDTIME [facility] Last Admin: 09/24/21 21:59 Dose: 15 unit Documented by: Insulin Human Lispro (Insulin Lispro 100 Unit/Ml 3 Ml Vial) 0 unit SUBCUT QIDACHS [facility]; Protocol Last Admin: 09/25/21 09:11 Dose: Not Given Documented by: Levothyroxine Sodium (Levothyroxine Sodium 100 Mcg Tablet) 100 mcg PO DAILY@0600 [facility] Last Admin: 09/25/21 07:05 Dose: 100 mcg Documented by: Lisinopril (Lisinopril 40 Mg Tablet) 40 mg PO DAILY [facility]; Protocol Last Admin: 09/25/21 10:47 Dose: Not Given Documented by: Metoprolol Succinate (Metoprolol Succinate Er 100 Mg Tab.Er.24h) 100 mg PO DAILY [facility]; Protocol Last Admin: 09/25/21 10:47 Dose: Not Given Documented by: Omeprazole (Omeprazole 20 Mg Capsule.Dr) 20 mg PO DAILY@0630 [facility] Last Admin: 09/25/21 07:05 Dose: 20 mg Documented by: Ondansetron HCl (Ondansetron Hcl 4 Mg/2 Ml Vial) 4 mg IVPUSH Q8H PRN PRN Reason: Nausea and Vomiting Oxycodone HCl (Oxycodone Hcl Immed Release 5 Mg Tablet) 5 mg PO BID PRN PRN Reason: Pain, Severe (Pain Scale 7-10) Pharmacy Consult (Consult Rx Vancomycin Dosing) 1 each MISCELLANE DAILY PRN PRN Reason: Consult order Sitagliptin Phosphate (Sitagliptin Phosphate 100 Mg Tablet) 100 mg PO DAILY [facility] Last Admin: 09/25/21 10:47 Dose: Not Given Documented by: Sodium Chloride (0.9 % Sodium Chloride Flush 3 Ml Syringe) 3 ml IVFLUSH QSHIFT [facility] Last Admin: 09/25/21 10:46 Dose: 3 ml Documented by: Trazodone HCl (Trazodone Hcl 50 Mg Tablet) 50 mg PO BEDTIME [facility] Last Admin: 09/24/21 21:58 Dose: 50 mg Documented by: Home Medications Medication Instructions Recorded Confirmed Last Taken Type aspirin 81 mg tablet,delayed 81 mg PO DAILY 05/23/20 09/24/21 08/11/21 History release citalopram 20 mg tablet 20 mg PO DAILY 05/23/20 09/24/21 08/11/21 History diltiazem HCl 360 mg capsule,24 360 mg PO DAILY 05/23/20 09/24/21 08/11/21 History hr,extended release glipizide 10 mg tablet, extended 10 mg PO DAILY 05/23/20 09/24/21 08/11/21 History release 24 hr hydrochlorothiazide 12.5 mg capsule 12.5 mg PO DAILY 05/23/20 09/24/21 08/11/21 History levothyroxine 100 mcg tablet 100 mcg PO DAILY 05/23/20 09/24/21 08/11/21 History lisinopril 40 mg tablet 40 mg PO DAILY 05/23/20 09/24/21 08/11/21 History metformin 500 mg tablet,extended 1,000 mg PO BID 05/23/20 09/24/21 08/11/21 History release 24 hr metoprolol succinate 100 mg 100 mg PO DAILY 05/23/20 09/24/21 08/11/21 History tablet,extended release 24 hr pregabalin 200 mg capsule 200 mg PO BEDTIME 05/23/20 09/24/21 Unknown History sitagliptin 100 mg tablet 100 mg PO DAILY 05/23/20 09/24/21 08/11/21 History trazodone 50 mg tablet 50 mg PO BEDTIME 05/23/20 09/24/21 08/11/21 History atorvastatin 80 mg tablet 1 tab PO DAILY 08/12/21 09/24/21 08/11/21 History denosumab 60 mg/mL subcutaneous 60 mg SUBCUT [id number] 08/12/21 09/24/21 Unknown History syringe (Prolia) insulin glargine 100 unit/mL (3 15 unit SUBCUT BEDTIME 08/12/21 09/24/21 Unknown History mL) subcutaneous pen (Lantus Solostar U-100 Insulin) melatonin 5 mg tablet 10 mg PO BEDTIME 08/12/21 09/24/21 08/11/21 History meloxicam 7.5 mg tablet 1 tab PO DAILY 08/12/21 09/24/21 Unknown History pregabalin 100 mg capsule 100 mg PO DAILY 08/12/21 09/24/21 Unknown History omeprazole 20 mg capsule,delayed 20 mg PO DAILY 09/24/21 09/24/21 Unknown History release oxycodone 5 mg tablet 1 tab PO BID PRN 09/24/21 09/24/21 Unknown History Physical Exam Vital Signs: Vital Signs: Last Vital Signs Temp 97.5 F 09/25/21 09:44 Pulse 88 09/25/21 09:44 Resp 18 09/25/21 09:44 BP 162/70 H 09/25/21 09:44 Pulse Ox 100 09/25/21 09:44 BMI result Body Mass Index 24.5 Const: General: cooperative, healthy appearing and comfortable Orientation/consciousness: oriented to person, oriented to place and oriented to time HENMT: Head: Yes normal to inspection Neck: Neck: Yes normal visual inspection Carotids: no bruits Chest: Chest palpation & inspection: normal inspection of the chest Resp: Effort & Inspection: normal respiratory effort and able to speak in complete sentences Auscultation: clear to auscultation bilaterally, no crackles, no rales, no rhonchi and no wheezes Cardio: Rate: regular rate Rhythm: regular rhythm Heart sounds: S1 normal heart sound present and S2 normal heart sound present Bruits: no carotid bruits Peripheral pulses: dorsalis pedis present (Bilateral DP signals) GI: Inspection: Yes normal to inspection Skin: Other: Right heel black and eschar penetrating all the way to bone. Surrounding associated cellulitis. Left foot toe ulcer Wounds: no wounds Hair: normal Neuro: General: oriented to person, oriented to place and oriented to time Cranial nerves: Yes CN's II-XII intact bilaterally and Yes Normal hearing present Cognition (Neuro): normal cognition Motor exam (neuro): 5/5 motor strength present throughout Extrem: Other: venous exam: No significant superficial varicosities or spider telangiectasias, minimal edema General: No clubbing, No cyanosis and No edema Psych: Appearance: grossly normal Mental Status: mental status grossly normal Speech and movement: Normal speech and movement present Results Labs Result diagrams: 09/25/21 07:26 09/25/21 07:26 Labs: Abnormal lab results 09/24/21 09/24/21 09/24/21 Range/Units 15:06 15:06 15:06 WBC 19.1 H (4.8-10.8) X10*3/uL RBC 3.61 L (4.20-5.50) X10*6/uL Hgb 8.9 L (12.0-16.0) g/dl Hct 29.3 L (37.0-47.0) % MCH 24.7 L (27.0-33.0) pg MCHC 30.4 L (31.0-35.0) g/dl RDW 17.6 H (11.0-16.0) % Plt Count 725 H (160-400) X10*3/uL Immature Gran % (Auto) 0.6 H (0.0-0.4) % Neut % (Auto) 80.0 H (45-73) % Lymph % (Auto) 12.3 L (20-40) % [place] # (Auto) 1.3 H (0.1-1.2) X10*3/uL Abs Immat Gran (auto) 0.12 H (0.00-0.03) X10*3/uL Absolute Neuts (auto) 15.3 H (2.0-8.3) x10*3/uL PT 14.0 H (9.9-13.0) SEC INR 1.2 H (0.9-1.1) Chloride (96-108) mmol/L BUN 17 H D (9-16) mg/dL POC Glucose (60-115) mg/dL Alkaline Phosphatase 131 H (39-117) U/L 09/24/21 09/24/21 09/25/21 Range/Units 19:54 21:55 07:26 WBC 14.9 H (4.8-10.8) X10*3/uL RBC 3.33 L (4.20-5.50) X10*6/uL Hgb 8.2 L (12.0-16.0) g/dl Hct 27.2 L (37.0-47.0) % MCH 24.6 L (27.0-33.0) pg MCHC 30.1 L (31.0-35.0) g/dl RDW 17.5 H (11.0-16.0) % Plt Count 590 H (160-400) X10*3/uL Immature Gran % (Auto) (0.0-0.4) % Neut % (Auto) (45-73) % Lymph % (Auto) (20-40) % [place] # (Auto) (0.1-1.2) X10*3/uL Abs Immat Gran (auto) (0.00-0.03) X10*3/uL Absolute Neuts (auto) (2.0-8.3) x10*3/uL PT (9.9-13.0) SEC INR (0.9-1.1) Chloride (96-108) mmol/L BUN (9-16) mg/dL POC Glucose 153 H 142 H (60-115) mg/dL Alkaline Phosphatase (39-117) U/L 09/25/21 Range/Units 07:26 WBC (4.8-10.8) X10*3/uL RBC (4.20-5.50) X10*6/uL Hgb (12.0-16.0) g/dl Hct (37.0-47.0) % MCH (27.0-33.0) pg MCHC (31.0-35.0) g/dl RDW (11.0-16.0) % Plt Count (160-400) X10*3/uL Immature Gran % (Auto) (0.0-0.4) % Neut % (Auto) (45-73) % Lymph % (Auto) (20-40) % [place] # (Auto) (0.1-1.2) X10*3/uL Abs Immat Gran (auto) (0.00-0.03) X10*3/uL Absolute Neuts (auto) (2.0-8.3) x10*3/uL PT (9.9-13.0) SEC INR (0.9-1.1) Chloride 110 H (96-108) mmol/L BUN (9-16) mg/dL POC Glucose (60-115) mg/dL Alkaline Phosphatase (39-117) U/L Short CBC 09/24/21 09/25/21 Range/Units 15:06 07:26 WBC 19.1 H 14.9 H (4.8-10.8) X10*3/uL Hgb 8.9 L 8.2 L (12.0-16.0) g/dl Hct 29.3 L 27.2 L (37.0-47.0) % Plt Count 725 H 590 H (160-400) X10*3/uL BMP 09/24/21 09/25/21 15:06 07:26 Sodium 140 143 Potassium 4.2 3.9 Chloride 102 110 H Carbon Dioxide 25 24 BUN 17 H D 13 Creatinine 0.83 0.75 Calcium 9.2 D 8.4 D Liver Function 09/24/21 Range/Units 15:06 Total Bilirubin 0.3 (0.0-1.0) mg/dL Direct Bilirubin 0.2 (0.0-0.5) mg/dL AST 14 (5-31) U/L ALT 13 (0-31) U/L Alkaline Phosphatase 131 H (39-117) U/L Albumin 3.5 (3.5-5.0) g/dL All other labs normal. Assessment and Plan (1) Dry gangrene: Status: Acute Plan In short patient has a nonhealing right foot ulcer. She has failed trial of conservative treatment. The patient will require right below-knee amputation. Risks benefits complications were discussed with the patient. In addition a call was put out to the grandson who is power of bankruptcy attorney as well. Will schedule for Tuesday if patient is stable. Thank you for allowing us to assist in this patient's care. If there are any questions or concerns please do not hesitate to contact us. Procedures Date of Service Date of Service: 09/25/21
--- NOTE | 2021-09-25 12:05 | P.PNIM_ITS ---
Subjective Subjective Date of Service: 09/25/21 Interval History: the patient was seen and evaluated this morning Laying in bed, difficult to wake med she woke up by herself around noontime Reporting pain in her ankle and foot No reported other overnight events. Systemic review: No fever, chills or weakness No chest pain, palpitation No shortness of breath or coughing No abdominal pain, nausea or vomiting No urinary symptoms Pain in the ankle and foot Physical Exam Vital Signs: Vital Signs: Last Vital Signs Temp 97.3 F 09/25/21 11:55 Pulse 99 09/25/21 11:55 Resp 16 09/25/21 11:55 BP 158/82 H 09/25/21 11:55 Pulse Ox 98 09/25/21 11:55 BMI result Body Mass Index 24.5 Const: Other: Constitutional : Obtunded in the morning but responded to stimulation, woke up around noon, interactive Neck : Normal inspection, Supple Cardiovascular : RRR, S1 S2, no lower extremity edema Respiratory : Good bilateral air entry,? no crackles, wheezes or rhonchi Gastrointestinal:? soft, lax, Normal bowel sounds, Non tender Skin :? Dry gangrene in the right foot with black discoloration in Right heel Neurological : Alert & oriented to self but not to place, No focal deficit Objective Data Active Medications Acetaminophen (Acetaminophen 325 Mg Tablet) 650 mg PO Q6H PRN PRN Reason: Pain, Mild (Pain Scale 1-3) Aspirin (Aspirin Enteric Coated 81 Mg Tablet.) 81 mg PO DAILY [facility] Last Admin: 09/25/21 10:46 Dose: Not Given Documented by: WANDA Non-Admin Reason: Patient Condition Contraindication Atorvastatin Calcium (Atorvastatin Calcium 80 Mg Tablet) 80 mg PO DAILY [facility] Last Admin: 09/25/21 10:46 Dose: Not Given Documented by: WANDA Non-Admin Reason: Patient Condition Contraindication Diltiazem HCl (Diltiazem Hcl Cd 180 Mg Cap.Er.24h) 360 mg PO DAILY [facility]; Protocol Last Admin: 09/25/21 10:46 Dose: Not Given Documented by: WANDA Non-Admin Reason: Patient Condition Contraindication Ferrous Sulfate (Ferrous Sulfate 324 Mg Tablet.) 324 mg PO BIDWM [facility] Last Admin: 09/25/21 10:46 Dose: Not Given Documented by: WANDA Non-Admin Reason: Patient Condition Contraindication Heparin Sodium (Porcine) (Heparin Sodium,Porcine 5,000 Unit/Ml Vial) 5,000 unit SUBCUT Q8H [facility] Last Admin: 09/25/21 10:49 Dose: 5,000 unit Documented by: WANDA Hydrochlorothiazide (Hydrochlorothiazide 12.5 Mg Tablet) 12.5 mg PO DAILY [facility]; Protocol Last Admin: 09/25/21 10:46 Dose: Not Given Documented by: WANDA Non-Admin Reason: Patient Condition Contraindication Piperacillin Sod/Tazobactam (Sod 3.375 gm/ Sodium Chloride) 50 mls @ 100 mls/hr IV Q6H [facility] Last Infusion: 09/25/21 10:10 Dose: 0 mls/hr Documented by: WANDA Vancomycin HCl 1,250 mg/ (Sodium Chloride) 250 mls @ 166.667 mls/hr IV Q24H [facility] Insulin Glargine (Insulin Glargine,Hum.Rec.Anlog 100 Unit/Ml 10 Ml Vial) 15 unit SUBCUT BEDTIME [facility] Last Admin: 09/24/21 21:59 Dose: 15 unit Documented by: YEMI Insulin Human Lispro (Insulin Lispro 100 Unit/Ml 3 Ml Vial) 0 unit SUBCUT QIDACHS [facility]; Protocol Last Admin: 09/25/21 09:11 Dose: Not Given Documented by: SAID Non-Admin Reason: No Insulin Coverage Levothyroxine Sodium (Levothyroxine Sodium 100 Mcg Tablet) 100 mcg PO DAILY@0600 [facility] Last Admin: 09/25/21 07:05 Dose: 100 mcg Documented by: JOSS Lisinopril (Lisinopril 40 Mg Tablet) 40 mg PO DAILY [facility]; Protocol Last Admin: 09/25/21 10:47 Dose: Not Given Documented by: WANDA Non-Admin Reason: Patient Condition Contraindication Metoprolol Succinate (Metoprolol Succinate Er 100 Mg Tab.Er.24h) 100 mg PO DAILY [facility]; Protocol Last Admin: 09/25/21 10:47 Dose: Not Given Documented by: WANDA Non-Admin Reason: Patient Condition Contraindication Omeprazole (Omeprazole 20 Mg Capsule.Dr) 20 mg PO DAILY@0630 [facility] Last Admin: 09/25/21 07:05 Dose: 20 mg Documented by: JOSS Ondansetron HCl (Ondansetron Hcl 4 Mg/2 Ml Vial) 4 mg IVPUSH Q8H PRN PRN Reason: Nausea and Vomiting Oxycodone HCl (Oxycodone Hcl Immed Release 5 Mg Tablet) 5 mg PO BID PRN PRN Reason: Pain, Severe (Pain Scale 7-10) Pharmacy Consult (Consult Rx Vancomycin Dosing) 1 each MISCELLANE DAILY PRN PRN Reason: Consult order Sitagliptin Phosphate (Sitagliptin Phosphate 100 Mg Tablet) 100 mg PO DAILY [facility] Last Admin: 09/25/21 10:47 Dose: Not Given Documented by: WANAD Non-Admin Reason: Patient Condition Contraindication Sodium Chloride (0.9 % Sodium Chloride Flush 3 Ml Syringe) 3 ml IVFLUSH QSHIFT [facility] Last Admin: 09/25/21 10:46 Dose: 3 ml Documented by: WANDA Trazodone HCl (Trazodone Hcl 50 Mg Tablet) 50 mg PO BEDTIME [facility] Last Admin: 09/24/21 21:58 Dose: 50 mg Documented by: YEMI Labs CBC & Chem 7: 09/25/21 07:26 09/25/21 07:26 Labs: Laboratory Results - last 24 hr 09/24/21 09/24/21 09/24/21 15:06 15:06 15:06 MCV 81.2 MCH 24.7 L MCHC 30.4 L RDW 17.6 H Plt Count 725 H MPV 9.8 Immature Gran % (Auto) 0.6 H Neut % (Auto) 80.0 H Lymph % (Auto) 12.3 L [place] % (Auto) 6.7 Eos % (Auto) 0.1 Baso % (Auto) 0.3 Lymph # (Auto) 2.4 [place] # (Auto) 1.3 H Eos # (Auto) 0.0 Baso # (Auto) 0.1 Abs Immat Gran (auto) 0.12 H Absolute Neuts (auto) 15.3 H Absolute Nucleated RBC 0.000 Nucleated RBC % (auto) 0.0 PT INR Anion Gap 17 Estim Creat Clear Calc 47.7 Estimated GFR > 60 POC Glucose Random Glucose 91 Estimat Average Glucose Hemoglobin A1c % Lactic Acid Calcium 9.2 D Total Bilirubin 0.3 Direct Bilirubin 0.2 AST 14 ALT 13 Alkaline Phosphatase 131 H Total Protein 7.0 Albumin 3.5 COVID-19 (MOHSEN) Negative COVID-19 Clin Com See Note 09/24/21 09/24/21 09/24/21 15:06 16:44 18:46 MCV MCH MCHC RDW Plt Count MPV Immature Gran % (Auto) Neut % (Auto) Lymph % (Auto) [place] % (Auto) Eos % (Auto) Baso % (Auto) Lymph # (Auto) [place] # (Auto) Eos # (Auto) Baso # (Auto) Abs Immat Gran (auto) Absolute Neuts (auto) Absolute Nucleated RBC Nucleated RBC % (auto) PT 14.0 H INR 1.2 H Anion Gap Estim Creat Clear Calc Estimated GFR POC Glucose 87 Random Glucose Estimat Average Glucose Hemoglobin A1c % Lactic Acid 1.1 Calcium Total Bilirubin Direct Bilirubin AST ALT Alkaline Phosphatase Total Protein Albumin COVID-19 ([facility]HSEN) COVID-19 Clin Com 09/24/21 09/24/21 09/25/21 19:54 21:55 07:07 MCV MCH MCHC RDW Plt Count MPV Immature Gran % (Auto) Neut % (Auto) Lymph % (Auto) [place] % (Auto) Eos % (Auto) Baso % (Auto) Lymph # (Auto) [place] # (Auto) Eos # (Auto) Baso # (Auto) Abs Immat Gran (auto) Absolute Neuts (auto) Absolute Nucleated RBC Nucleated RBC % (auto) PT INR Anion Gap Estim Creat Clear Calc Estimated GFR POC Glucose 153 H 142 H 72 Random Glucose Estimat Average Glucose Hemoglobin A1c % Lactic Acid Calcium Total Bilirubin Direct Bilirubin AST ALT Alkaline Phosphatase Total Protein Albumin COVID-19 ([facility]) COVID-19 Clin Com 09/25/21 09/25/21 09/25/21 07:26 07:26 07:26 MCV 81.7 MCH 24.6 L MCHC 30.1 L RDW 17.5 H Plt Count 590 H MPV 10.0 Immature Gran % (Auto) Neut % (Auto) Lymph % (Auto) [place] % (Auto) Eos % (Auto) Baso % (Auto) Lymph # (Auto) [place] # (Auto) Eos # (Auto) Baso # (Auto) Abs Immat Gran (auto) Absolute Neuts (auto) Absolute Nucleated RBC 0.000 Nucleated RBC % (auto) 0.0 PT INR Anion Gap 13 Estim Creat Clear Calc 52.8 Estimated GFR > 60 POC Glucose Random Glucose 97 Estimat Average Glucose 180 Hemoglobin A1c % 7.9 Lactic Acid Calcium 8.4 D Total Bilirubin Direct Bilirubin AST ALT Alkaline Phosphatase Total Protein Albumin COVID-19 ([facility]) COVID-19 Clin Com 09/25/21 09:47 MCV MCH MCHC RDW Plt Count MPV Immature Gran % (Auto) Neut % (Auto) Lymph % (Auto) [place] % (Auto) Eos % (Auto) Baso % (Auto) Lymph # (Auto) [place] # (Auto) Eos # (Auto) Baso # (Auto) Abs Immat Gran (auto) Absolute Neuts (auto) Absolute Nucleated RBC Nucleated RBC % (auto) PT INR Anion Gap Estim Creat Clear Calc Estimated GFR POC Glucose 74 Random Glucose Estimat Average Glucose Hemoglobin A1c % Lactic Acid Calcium Total Bilirubin Direct Bilirubin AST ALT Alkaline Phosphatase Total Protein Albumin COVID-19 ([facility]) COVID-19 Clin Com Assessment and Plan (1) Sepsis: Status: Acute (2) Dry gangrene: Status: Acute (3) Chronic foot ulcer: Status: Acute Plan A 76 years old lady with PMH of PVD, HTN, diabetes, hypothyroidism among others who presents to the hospital with right foot pain and swelling. Sepsis, resolved Secondary to right diabetic foot infection, dry gangrene Negative lactic acid Blood cultures Start broad-spectrum antibiotics vascular surgery evaluation, plan for BKA Tuesday morning Type 2 diabetes Hold oral medications Insulin next [place] diabetic diet Hypertension continue Cardizem, lisinopril and metoprolol Neuropathy continue pregabalin PVD continue aspirin and atorvastatin DVT PPX Heparin Quality Stroke Does the patient have a stroke diagnosis?: No VTE Prior VTE?: No VTE Risk Level:: Medical - moderate - high VTE Device Contraindication: Treatment Not Indicated VTE Drug Contraindication: N/A - Med Ordered
[2021-09-25] MEDS: Acetaminophen 325 MG TABLET 650 MG PO (15:30)
[2021-09-25 16:05] LABS: Glucose, Whole Blood 134 mg/dL (60-115)
[2021-09-25] MEDS: Ferrous Sulfate 324 MG TABLET.DR PO (18:17)
[2021-09-25] MEDS: vancomycin HCL 1,250 MG in 0.9 % Sodium Chloride 250 ML 166.67 MG IV (19:25)
[2021-09-25 19:45] LABS: Glucose, Whole Blood 158 mg/dL (60-115)
[2021-09-25] MEDS: Insulin Glargine,Hum.rec.anlog 100 UNIT/ML 10 ML VIAL 15 UNIT SUBCUT (21:10)
[2021-09-25] MEDS: Insulin Lispro 100 UNIT/ML 3 ML VIAL SUBCUT (21:11)
[2021-09-26 03:50] VITALS: BP 163/90; PULSE 86; RESP 18; TEMP 37; O2SAT 98
[2021-09-26] MEDS: Piperacillin Sodium/Tazobactam 3.375 GM in 0.9 % Sodium Chloride 50 ML IV ×3 (05:58→18:12)
[2021-09-26] MEDS: Levothyroxine Sodium 100 MCG TABLET PO (06:01)
[2021-09-26] MEDS: Omeprazole 20 MG CAPSULE.DR PO (06:01)
[2021-09-26 07:20] LABS: Hematocrit 29.3 % (37.0-47.0); Hemoglobin 8.8 g/dl (12.0-16.0); Mean Corpuscular Hemoglobin 24.8 pg (27.0-33.0); Mean Corpuscular Volume 82.5 fL (80.0-98.0); Mean Platelet Volume 10.1 fL (9.4-12.3); Platelet Count 734 X10*3/uL (160-400); Red Blood Count 3.55 X10*6/uL (4.20-5.50); Red Cell Distribution Width 17.5 % (11.0-16.0); White Blood Count 16.6 X10*3/uL (4.8-10.8)
[2021-09-26 07:42] LABS: Glucose, Whole Blood 138 mg/dL (60-115)
[2021-09-26 07:57] LABS: Anion Gap 16 (12-20); Blood Urea Nitrogen 10 mg/dL (9-16); Calcium 8.6 mg/dL (8.4-10.2); Carbon Dioxide 24 mmol/L (22-29); Chloride 109 mmol/L (96-108); Estimated Glomerular Filt Rate > 60; Glucose Random 160 mg/dL (60-115); Sodium 145 mmol/L (135-145)
[2021-09-26 08:00] VITALS: BP 140/89; PULSE 114; RESP 20; TEMP 37.1; O2SAT 100
[2021-09-26] MEDS: Heparin Sodium,Porcine 5,000 UNIT/ML VIAL 5000 UNIT SUBCUT (08:38)
[2021-09-26] MEDS: oxyCODONE HCl Immed Release 5 MG TABLET PO ×2 (08:38→20:12)
[2021-09-26] MEDS: Atorvastatin Calcium 80 MG TABLET PO (08:38)
[2021-09-26] MEDS: Ferrous Sulfate 324 MG TABLET.DR PO (08:38)
[2021-09-26] MEDS: Aspirin Enteric Coated 81 MG TABLET.DR PO (08:38)
[2021-09-26] MEDS: dilTIAZem HCL CD 180 MG CAP.ER.24H 360 MG PO (08:38)
[2021-09-26] MEDS: Metoprolol Succinate ER 100 MG TAB.ER.24H PO (08:38)
[2021-09-26] MEDS: 0.9 % Sodium Chloride Flush 3 ML SYRINGE IVFLUSH ×2 (08:38→15:36)
[2021-09-26] MEDS: SITagliptin Phosphate 100 MG TABLET PO (08:39)
[2021-09-26] MEDS: Acetaminophen 325 MG TABLET 650 MG PO ×2 (08:39→17:17)
[2021-09-26] MEDS: hydroCHLOROthiazide 12.5 MG TABLET PO (08:39)
[2021-09-26] MEDS: lisinopriL 40 MG TABLET PO (08:39)
--- NOTE | 2021-09-26 11:21 | HO.PM.IMPN ---
Subjective Subjective Date of Service: 09/26/21 Interval History: the patient was seen and evaluated this morning Laying in bed, alert and interactive Moved by the fact that she might lose her foot, feels upset Reporting pain in her ankle and foot No reported other overnight events. Systemic review: No fever, chills or weakness No chest pain, palpitation No shortness of breath or coughing No abdominal pain, nausea or vomiting No urinary symptoms Pain in the ankle and foot Physical Exam Vital Signs: Vital Signs: Last Vital Signs Temp 98.8 F 09/26/21 08:00 Pulse 114 H 09/26/21 08:00 Resp 20 09/26/21 08:00 BP 140/89 H 09/26/21 08:00 Pulse Ox 100 09/26/21 08:00 BMI result Body Mass Index 24.5 Const: Other: Constitutional : Obtunded in the morning but responded to stimulation, woke up around noon, interactive Neck : Normal inspection, Supple Cardiovascular : RRR, S1 S2, no lower extremity edema Respiratory : Good bilateral air entry,? no crackles, wheezes or rhonchi Gastrointestinal:? soft, lax, Normal bowel sounds, Non tender Skin :? Dry gangrene in the right foot with black discoloration in Right heel and left base of toe ulcer Neurological : Alert & oriented to self but not to place, No focal deficit Objective Data Active Medications Acetaminophen (Acetaminophen 325 Mg Tablet) 650 mg PO Q6H PRN PRN Reason: Pain, Mild (Pain Scale 1-3) Last Admin: 09/26/21 08:39 Dose: 650 mg Documented by: COTEMA Aspirin (Aspirin Enteric Coated 81 Mg Tablet.) 81 mg PO DAILY [facility] Last Admin: 09/26/21 08:38 Dose: 81 mg Documented by: COTEMA Atorvastatin Calcium (Atorvastatin Calcium 80 Mg Tablet) 80 mg PO DAILY [facility] Last Admin: 09/26/21 08:38 Dose: 80 mg Documented by: COTEMA Diltiazem HCl (Diltiazem Hcl Cd 180 Mg Cap.Er.24h) 360 mg PO DAILY [facility]; Protocol Last Admin: 09/26/21 08:38 Dose: 360 mg Documented by: COTEMA Ferrous Sulfate (Ferrous Sulfate 324 Mg Tablet.) 324 mg PO BIDWM [facility] Last Admin: 09/26/21 08:38 Dose: 324 mg Documented by: HO.COTEMA Heparin Sodium (Porcine) (Heparin Sodium,Porcine 5,000 Unit/Ml Vial) 5,000 unit SUBCUT Q8H [facility] Last Admin: 09/26/21 08:38 Dose: 5,000 unit Documented by: CECILIO Hydrochlorothiazide (Hydrochlorothiazide 12.5 Mg Tablet) 12.5 mg PO DAILY [facility]; Protocol Last Admin: 09/26/21 08:39 Dose: 12.5 mg Documented by: COTEMA Piperacillin Sod/Tazobactam (Sod 3.375 gm/ Sodium Chloride) 50 mls @ 100 mls/hr IV Q6H [facility] Last Infusion: 09/26/21 08:01 Dose: 0 mls/hr Documented by: CECILIO Vancomycin HCl 1,250 mg/ (Sodium Chloride) 250 mls @ 166.667 mls/hr IV Q24H [facility] Last Infusion: 09/25/21 21:18 Dose: 0 mls/hr Documented by: ANTOIC Insulin Glargine (Insulin Glargine,Hum.Rec.Anlog 100 Unit/Ml 10 Ml Vial) 15 unit SUBCUT BEDTIME [facility] Last Admin: 09/25/21 21:10 Dose: 15 unit Documented by: BEV Insulin Human Lispro (Insulin Lispro 100 Unit/Ml 3 Ml Vial) 0 unit SUBCUT QIDACHS [facility]; Protocol Last Admin: 09/26/21 07:31 Dose: Not Given Documented by: CECILIO Non-Admin Reason: No Insulin Coverage Levothyroxine Sodium (Levothyroxine Sodium 100 Mcg Tablet) 100 mcg PO DAILY@0600 [facility] Last Admin: 09/26/21 06:01 Dose: 100 mcg Documented by: ANTOIC Lisinopril (Lisinopril 40 Mg Tablet) 40 mg PO DAILY [facility]; Protocol Last Admin: 09/26/21 08:39 Dose: 40 mg Documented by: CECILIO Metoprolol Succinate (Metoprolol Succinate Er 100 Mg Tab.Er.24h) 100 mg PO DAILY [facility]; Protocol Last Admin: 09/26/21 08:38 Dose: 100 mg Documented by: CECILIO Omeprazole (Omeprazole 20 Mg Capsule.Dr) 20 mg PO DAILY@0630 [facility] Last Admin: 09/26/21 06:01 Dose: 20 mg Documented by: ANTOIC Ondansetron HCl (Ondansetron Hcl 4 Mg/2 Ml Vial) 4 mg IVPUSH Q8H PRN PRN Reason: Nausea and Vomiting Oxycodone HCl (Oxycodone Hcl Immed Release 5 Mg Tablet) 5 mg PO BID PRN PRN Reason: Pain, Severe (Pain Scale 7-10) Last Admin: 09/26/21 08:38 Dose: 5 mg Documented by: COTEMA Pharmacy Consult (Consult Rx Vancomycin Dosing) 1 each MISCELLANE DAILY PRN PRN Reason: Consult order Sitagliptin Phosphate (Sitagliptin Phosphate 100 Mg Tablet) 100 mg PO DAILY [facility] Last Admin: 09/26/21 08:39 Dose: 100 mg Documented by: COTEMA Sodium Chloride (0.9 % Sodium Chloride Flush 3 Ml Syringe) 3 ml IVFLUSH QSHIFT [facility] Last Admin: 09/26/21 08:38 Dose: 3 ml Documented by: COTEMA Trazodone HCl (Trazodone Hcl 50 Mg Tablet) 50 mg PO BEDTIME [facility] Last Admin: 09/25/21 20:58 Dose: Not Given Documented by: ANTJOLIE Non-Admin Reason: Patient Asleep Labs CBC & Chem 7: 09/26/21 06:37 09/26/21 06:37 Labs: Laboratory Results - last 24 hr 09/25/21 09/25/21 09/26/21 15:55 19:32 06:37 MCV 82.5 MCH 24.8 L MCHC 30.0 L RDW 17.5 H Plt Count 734 H MPV 10.1 Absolute Nucleated RBC 0.000 Nucleated RBC % (auto) 0.0 Anion Gap Estim Creat Clear Calc Estimated GFR POC Glucose 134 H 158 H Random Glucose Calcium 09/26/21 09/26/21 06:37 07:12 MCV MCH MCHC RDW Plt Count MPV Absolute Nucleated RBC Nucleated RBC % (auto) Anion Gap 16 Estim Creat Clear Calc 46.0 Estimated GFR > 60 POC Glucose 138 H Random Glucose 160 H Calcium 8.6 Microbiology Microbiology Results: Microbiology 09/24/21 15:19 Blood Culture - Preliminary Blood - Venous No growth after 24 hours. 09/24/21 15:06 Blood Culture - Preliminary Blood - Venous No growth after 24 hours. Assessment and Plan (1) Sepsis: Status: Acute (2) Dry gangrene: Status: Acute (3) Chronic foot ulcer: Status: Acute Plan A 76 years old lady with PMH of PVD, HTN, diabetes, hypothyroidism among others who presents to the hospital with right foot pain and swelling. Sepsis, resolved Secondary to right diabetic foot infection, dry gangrene Negative lactic acid Pending Blood cultures Continue broad-spectrum antibiotics vascular surgery evaluation, plan for amputation Tuesday morning Id consult pending, family requested General surgery evaluation for 2nd opinion on amputation Type 2 diabetes Hold oral medications Insulin diabetic diet Hypertension continue Cardizem, lisinopril and metoprolol Neuropathy continue pregabalin PVD continue aspirin and atorvastatin DVT PPX Heparin Quality Stroke Does the patient have a stroke diagnosis?: No VTE Prior VTE?: No VTE Risk Level:: Medical - moderate - high VTE Device Contraindication: Treatment Not Indicated VTE Drug Contraindication: N/A - Med Ordered
[2021-09-26 11:32] LABS: Glucose, Whole Blood 219 mg/dL (60-115)
[2021-09-26 12:00] VITALS: BP 109/55; PULSE 81; RESP 20; TEMP 36.6; O2SAT 99
[2021-09-26] MEDS: Insulin Lispro 100 UNIT/ML 3 ML VIAL SUBCUT (12:08)
[2021-09-26 15:16] VITALS: BP 93/55; PULSE 72; RESP 15; TEMP 36.4; O2SAT 99
--- NOTE | 2021-09-26 15:24 | P.CNID_ITS ---
History of Present Illness Data of Consult Service Date: 09/26/21 Requesting physician: Graciela Carson Primary Care Provider: Roberto Carlos Sanford MD HPI Reason for consult: foot dry gangrene,right She presents to hospital with right foot dry gangrene as well as failure to improve. She was started on antibiotics three weeks ago po and area didnt improve It got worse She has no fever or chills Review of Systems Review of Systems: Yes all other systems are reviewed and are negative [facility] Past Medical History Medical History Anemia in chronic kidney disease Anxiety Asthma Depression Diabetes mellitus Diabetic neuropathy Dysphagia Fibromyalgia GERD (gastroesophageal reflux disease) Hiatal hernia HTN (hypertension) Hx of gastritis Hypercholesterolemia Hypothyroidism IBS (irritable bowel syndrome) Mini stroke Mononeuritis On beta jeannie at home Osteoarthritis Osteoporosis PAD (peripheral artery disease) Vitamin B 12 deficiency Family History Family History Sister Diabetes Family history: reviewed and not pertinent Surgical History Surgical History H/O local excision of skin lesion History of ankle surgery History of back surgery History of esophagogastroduodenoscopy (EGD) History of open reduction and internal fixation (ORIF) procedure Hx of hysterectomy Social History Social History Household Members: Other Housing: [facility] Do you presently have visiting nurse or other home services: No Unable to assess alcohol history related to: Unknown Alcohol intake: never Patient Tobacco Use Status: Former Tobacco user Quit Date: >20 yr ago e-Cigarette/Vaping Use: Never Used Second Hand Smoke Exposure: No Advance Directives Date on File: 11/05/20 service: No Current occupational status: disabled 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 Meds Allergies Allergy/AdvReac Type Severity Reaction Status Date / Time ibuprofen [From MOTRIN] Allergy Unknown UPSET Verified 09/24/21 13:23 STOMACH Active Medications: Current Medications Acetaminophen (Acetaminophen 325 Mg Tablet) 650 mg PO Q6H PRN PRN Reason: Pain, Mild (Pain Scale 1-3) Last Admin: 09/26/21 08:39 Dose: 650 mg Documented by: Aspirin (Aspirin Enteric Coated 81 Mg Tablet.) 81 mg PO DAILY [facility] Last Admin: 09/26/21 08:38 Dose: 81 mg Documented by: Atorvastatin Calcium (Atorvastatin Calcium 80 Mg Tablet) 80 mg PO DAILY [facility] Last Admin: 09/26/21 08:38 Dose: 80 mg Documented by: Diltiazem HCl (Diltiazem Hcl Cd 180 Mg Cap.Er.24h) 360 mg PO DAILY [facility]; Protocol Last Admin: 09/26/21 08:38 Dose: 360 mg Documented by: Ferrous Sulfate (Ferrous Sulfate 324 Mg Tablet.) 324 mg PO BIDWM [facility] Last Admin: 09/26/21 08:38 Dose: 324 mg Documented by: Heparin Sodium (Porcine) (Heparin Sodium,Porcine 5,000 Unit/Ml Vial) 5,000 unit SUBCUT Q8H [facility] Last Admin: 09/26/21 08:38 Dose: 5,000 unit Documented by: Hydrochlorothiazide (Hydrochlorothiazide 12.5 Mg Tablet) 12.5 mg PO DAILY [facility]; Protocol Last Admin: 09/26/21 08:39 Dose: 12.5 mg Documented by: Piperacillin Sod/Tazobactam (Sod 3.375 gm/ Sodium Chloride) 50 mls @ 100 mls/hr IV Q6H [facility] Last Infusion: 09/26/21 12:48 Dose: Infused Documented by: Vancomycin HCl 1,250 mg/ (Sodium Chloride) 250 mls @ 166.667 mls/hr IV Q24H [facility] Last Infusion: 09/25/21 21:18 Dose: Infused Documented by: Insulin Glargine (Insulin Glargine,Hum.Rec.Anlog 100 Unit/Ml 10 Ml Vial) 15 unit SUBCUT BEDTIME [facility] Last Admin: 09/25/21 21:10 Dose: 15 unit Documented by: Insulin Human Lispro (Insulin Lispro 100 Unit/Ml 3 Ml Vial) 0 unit SUBCUT QIDACHS [facility]; Protocol Last Admin: 09/26/21 12:08 Dose: 4 unit Documented by: Levothyroxine Sodium (Levothyroxine Sodium 100 Mcg Tablet) 100 mcg PO DAILY@0600 [facility] Last Admin: 09/26/21 06:01 Dose: 100 mcg Documented by: Lisinopril (Lisinopril 40 Mg Tablet) 40 mg PO DAILY [facility]; Protocol Last Admin: 02/12/22 08:39 Dose: 40 mg Documented by: Metoprolol Succinate (Metoprolol Succinate Er 100 Mg Tab.Er.24h) 100 mg PO DAILY [facility]; Protocol Last Admin: 09/26/21 08:38 Dose: 100 mg Documented by: Omeprazole (Omeprazole 20 Mg Capsule.Dr) 20 mg PO DAILY@0630 [facility] Last Admin: 09/26/21 06:01 Dose: 20 mg Documented by: Ondansetron HCl (Ondansetron Hcl 4 Mg/2 Ml Vial) 4 mg IVPUSH Q8H PRN PRN Reason: Nausea and Vomiting Oxycodone HCl (Oxycodone Hcl Immed Release 5 Mg Tablet) 5 mg PO BID PRN PRN Reason: Pain, Severe (Pain Scale 7-10) Last Admin: 09/26/21 08:38 Dose: 5 mg Documented by: Pharmacy Consult (Consult Rx Vancomycin Dosing) 1 each MISCELLANE DAILY PRN PRN Reason: Consult order Sitagliptin Phosphate (Sitagliptin Phosphate 100 Mg Tablet) 100 mg PO DAILY [facility] Last Admin: 09/26/21 08:39 Dose: 100 mg Documented by: Sodium Chloride (0.9 % Sodium Chloride Flush 3 Ml Syringe) 3 ml IVFLUSH QSHIFT [facility] Last Admin: 09/26/21 08:38 Dose: 3 ml Documented by: Trazodone HCl (Trazodone Hcl 50 Mg Tablet) 50 mg PO BEDTIME [facility] Last Admin: 09/25/21 20:58 Dose: Not Given Documented by: Home Medications Medication Instructions Recorded Confirmed Last Taken Type citalopram 20 mg tablet 20 mg PO DAILY 05/23/20 10/08/21 08/11/21 History diltiazem HCl 360 mg capsule,24 360 mg PO DAILY 05/23/20 10/08/21 08/11/21 History hr,extended release levothyroxine 100 mcg tablet 100 mcg PO DAILY@0600 05/23/20 10/08/21 08/11/21 History metoprolol succinate 100 mg 100 mg PO DAILY 05/23/20 10/08/21 08/11/21 History tablet,extended release 24 hr sitagliptin 100 mg tablet 100 mg PO DAILY 05/23/20 10/08/21 08/11/21 History trazodone 50 mg tablet 50 mg PO BEDTIME 05/23/20 10/08/21 08/11/21 History atorvastatin 80 mg tablet 1 tab PO DAILY 08/12/21 10/08/21 08/11/21 History denosumab 60 mg/mL subcutaneous 60 mg SUBCUT [id number] 08/12/21 10/08/21 Unknown History syringe (Prolia) insulin glargine 100 unit/mL (3 15 unit SUBCUT BEDTIME 08/12/21 10/08/21 Unknown History mL) subcutaneous pen (Lantus Solostar U-100 Insulin) melatonin 5 mg tablet 10 mg PO BEDTIME 08/12/21 10/08/21 08/11/21 History omeprazole 20 mg capsule,delayed 20 mg PO DAILY@0630 09/24/21 10/08/21 Unknown History release aspirin 81 mg chewable tablet 81 mg PO DAILY 10/08/21 10/08/21 Unknown History Physical Exam Vital Signs: Vital Signs: Last Vital Signs Temp 97.5 F 09/26/21 15:16 Pulse 72 09/26/21 15:16 Resp 15 09/26/21 15:16 BP 93/55 L 09/26/21 15:16 Pulse Ox 99 09/26/21 15:16 BMI result Body Mass Index 24.5 Const: General: cooperative HENMT: Head: Yes normal to inspection Mouth: Normal oral and palatal mucosa present Resp: Effort & Inspection: normal respiratory effort Cardio: Rate: regular rate Rhythm: regular rhythm GI: Palpation (GI): Soft to palpation and nontender Extrem: Other: right heel and extending up Achilles tendon dry gangrene Results Labs CBC & Chem 7: 10/06/21 04:08 10/06/21 04:08 Labs: Short CBC 09/26/21 Range/Units 06:37 WBC 16.6 H (4.8-10.8) X10*3/uL Hgb 8.8 L (12.0-16.0) g/dl Hct 29.3 L (37.0-47.0) % Plt Count 734 H (160-400) X10*3/uL BMP 09/26/21 06:37 Sodium 145 Potassium 4.0 Chloride 109 H Carbon Dioxide 24 BUN 10 Creatinine 0.86 Calcium 8.6 Microbiology Microbiology Results: Microbiology 09/24/21 15:19 Blood - Venous Blood Culture - Preliminary No growth after 24 hours. 09/24/21 15:06 Blood - Venous Blood Culture - Preliminary No growth after 24 hours. Assessment and Plan (1) Chronic foot ulcer: (2) Dry gangrene: She has become worse on po antibiotics I do not think that IV antibiotics would allow patient to salvage foot Plan Would continue IV antibiotics for now. BKA seems only course of action (patient is seeing Vascular and patient is absorbing this information).
[2021-09-26 15:44] LABS: Creatinine Clr Calc Pharmacy 48.9; Estimated Glomerular Filt Rate > 60
--- NOTE | 2021-09-26 16:01 | PM.CNGS ---
History of Present Illness Consult details Consult date: 09/26/21 Requesting physician: Graciela Carson Narrative: the pt is well known to us in Wound care with dry gangrene of the right foot. It seems to have gone from stable dry gangrene to active infection in some segments and has not responded well to antibiotics. she has been seen by vascular who advocates for amputation bka as this area should be well vascularized to heal PMFSH Past Medical History Medical History Anemia in chronic kidney disease Anxiety Asthma Depression Diabetes mellitus Diabetic neuropathy Dysphagia Fibromyalgia GERD (gastroesophageal reflux disease) Hiatal hernia HTN (hypertension) Hx of gastritis Hypercholesterolemia Hypothyroidism IBS (irritable bowel syndrome) Mini stroke Mononeuritis On beta jeannie at home Osteoarthritis Osteoporosis PAD (peripheral artery disease) Vitamin B 12 deficiency Family History Family History Sister Diabetes Family history: reviewed and not pertinent Surgical History Surgical History H/O local excision of skin lesion History of ankle surgery History of back surgery History of esophagogastroduodenoscopy (EGD) History of open reduction and internal fixation (ORIF) procedure Hx of hysterectomy Social History Social History Household Members: Family Housing: House Do you presently have visiting nurse or other home services: Yes Unable to assess alcohol history related to: Unknown Alcohol intake: never Patient Tobacco Use Status: Former Tobacco user Quit Date: >20 yr ago e-Cigarette/Vaping Use: Never Used Use of substances other than those prescribed or required for medical reasons: No Currently Displaying Signs/Symptoms of Drug Intoxication Withdrawal: No Have you been hit, kicked, punched, or otherwise hurt by someone within the past year? 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 Meds Allergies Allergy/AdvReac Type Severity Reaction Status Date / Time ibuprofen [From MOTRIN] Allergy Unknown UPSET Verified 09/24/21 13:23 STOMACH Active Medications: Current Medications Acetaminophen (Acetaminophen 325 Mg Tablet) 650 mg PO Q6H PRN PRN Reason: Pain, Mild (Pain Scale 1-3) Last Admin: 09/26/21 08:39 Dose: 650 mg Documented by: Aspirin (Aspirin Enteric Coated 81 Mg Tablet.) 81 mg PO DAILY [facility] Last Admin: 09/26/21 08:38 Dose: 81 mg Documented by: Atorvastatin Calcium (Atorvastatin Calcium 80 Mg Tablet) 80 mg PO DAILY [facility] Last Admin: 09/26/21 08:38 Dose: 80 mg Documented by: Diltiazem HCl (Diltiazem Hcl Cd 180 Mg Cap.Er.24h) 360 mg PO DAILY [facility]; Protocol Last Admin: 09/26/21 08:38 Dose: 360 mg Documented by: Ferrous Sulfate (Ferrous Sulfate 324 Mg Tablet.) 324 mg PO BIDWM [facility] Last Admin: 09/26/21 08:38 Dose: 324 mg Documented by: Heparin Sodium (Porcine) (Heparin Sodium,Porcine 5,000 Unit/Ml Vial) 5,000 unit SUBCUT Q8H [facility] Last Admin: 09/26/21 08:38 Dose: 5,000 unit Documented by: Hydrochlorothiazide (Hydrochlorothiazide 12.5 Mg Tablet) 12.5 mg PO DAILY [facility]; Protocol Last Admin: 09/26/21 08:39 Dose: 12.5 mg Documented by: Piperacillin Sod/Tazobactam (Sod 3.375 gm/ Sodium Chloride) 50 mls @ 100 mls/hr IV Q6H [facility] Last Infusion: 09/26/21 12:48 Dose: Infused Documented by: Vancomycin HCl 1,250 mg/ (Sodium Chloride) 250 mls @ 166.667 mls/hr IV Q24H [facility] Last Infusion: 09/25/21 21:18 Dose: Infused Documented by: Insulin Glargine (Insulin Glargine,Hum.Rec.Anlog 100 Unit/Ml 10 Ml Vial) 15 unit SUBCUT BEDTIME [facility] Last Admin: 09/25/21 21:10 Dose: 15 unit Documented by: Insulin Human Lispro (Insulin Lispro 100 Unit/Ml 3 Ml Vial) 0 unit SUBCUT QIDACHS [facility]; Protocol Last Admin: 09/26/21 12:08 Dose: 4 unit Documented by: Levothyroxine Sodium (Levothyroxine Sodium 100 Mcg Tablet) 100 mcg PO DAILY@0600 [facility] Last Admin: 09/26/21 06:01 Dose: 100 mcg Documented by: Lisinopril (Lisinopril 40 Mg Tablet) 40 mg PO DAILY [facility]; Protocol Last Admin: 09/26/21 08:39 Dose: 40 mg Documented by: Metoprolol Succinate (Metoprolol Succinate Er 100 Mg Tab.Er.24h) 100 mg PO DAILY [facility]; Protocol Last Admin: 09/26/21 08:38 Dose: 100 mg Documented by: Omeprazole (Omeprazole 20 Mg Capsule.Dr) 20 mg PO DAILY@0630 [facility] Last Admin: 09/26/21 06:01 Dose: 20 mg Documented by: Ondansetron HCl (Ondansetron Hcl 4 Mg/2 Ml Vial) 4 mg IVPUSH Q8H PRN PRN Reason: Nausea and Vomiting Oxycodone HCl (Oxycodone Hcl Immed Release 5 Mg Tablet) 5 mg PO BID PRN PRN Reason: Pain, Severe (Pain Scale 7-10) Last Admin: 09/26/21 08:38 Dose: 5 mg Documented by: Pharmacy Consult (Consult Rx Vancomycin Dosing) 1 each MISCELLANE DAILY PRN PRN Reason: Consult order Sitagliptin Phosphate (Sitagliptin Phosphate 100 Mg Tablet) 100 mg PO DAILY [facility] Last Admin: 09/26/21 08:39 Dose: 100 mg Documented by: Sodium Chloride (0.9 % Sodium Chloride Flush 3 Ml Syringe) 3 ml IVFLUSH QSHIFT [facility] Last Admin: 09/26/21 15:36 Dose: 3 ml Documented by: Trazodone HCl (Trazodone Hcl 50 Mg Tablet) 50 mg PO BEDTIME [facility] Last Admin: 09/25/21 20:58 Dose: Not Given Documented by: Home Medications Medication Instructions Recorded Confirmed Last Taken Type aspirin 81 mg tablet,delayed 81 mg PO DAILY 05/23/20 09/24/21 08/11/21 History release citalopram 20 mg tablet 20 mg PO DAILY 05/23/20 09/24/21 08/11/21 History diltiazem HCl 360 mg capsule,24 360 mg PO DAILY 05/23/20 09/24/21 08/11/21 History hr,extended release glipizide 10 mg tablet, extended 10 mg PO DAILY 05/23/20 09/24/21 08/11/21 History release 24 hr hydrochlorothiazide 12.5 mg capsule 12.5 mg PO DAILY 05/23/20 09/24/21 08/11/21 History levothyroxine 100 mcg tablet 100 mcg PO DAILY 05/23/20 09/24/21 08/11/21 History lisinopril 40 mg tablet 40 mg PO DAILY 05/23/20 09/24/21 08/11/21 History metformin 500 mg tablet,extended 1,000 mg PO BID 05/23/20 09/24/21 08/11/21 History release 24 hr metoprolol succinate 100 mg 100 mg PO DAILY 05/23/20 09/24/21 08/11/21 History tablet,extended release 24 hr pregabalin 200 mg capsule 200 mg PO BEDTIME 05/23/20 09/24/21 Unknown History sitagliptin 100 mg tablet 100 mg PO DAILY 05/23/20 09/24/21 08/11/21 History trazodone 50 mg tablet 50 mg PO BEDTIME 05/23/20 09/24/21 08/11/21 History atorvastatin 80 mg tablet 1 tab PO DAILY 08/12/21 09/24/21 08/11/21 History denosumab 60 mg/mL subcutaneous 60 mg SUBCUT [id number] 08/12/21 09/24/21 Unknown History syringe (Prolia) insulin glargine 100 unit/mL (3 15 unit SUBCUT BEDTIME 08/12/21 09/24/21 Unknown History mL) subcutaneous pen (Lantus Solostar U-100 Insulin) melatonin 5 mg tablet 10 mg PO BEDTIME 08/12/21 09/24/21 08/11/21 History meloxicam 7.5 mg tablet 1 tab PO DAILY 08/12/21 09/24/21 Unknown History pregabalin 100 mg capsule 100 mg PO DAILY 08/12/21 09/24/21 Unknown History omeprazole 20 mg capsule,delayed 20 mg PO DAILY 09/24/21 09/24/21 Unknown History release oxycodone 5 mg tablet 1 tab PO BID PRN 09/24/21 09/24/21 Unknown History Physical Exam Vital Signs: Vital Signs: Last Vital Signs Temp 97.5 F 09/26/21 15:16 Pulse 72 09/26/21 15:16 Resp 15 09/26/21 15:16 BP 93/55 L 09/26/21 15:16 Pulse Ox 99 09/26/21 15:16 BMI result Body Mass Index 24.5 Skin: Other: The right heel has significant dry gangrene no open areas but there are softer areas where it is tender and maybe a litle softer not stable dry gangrene no erythema the lower leg looks great and good calf muscle. Results Labs Result diagrams: 09/26/21 06:37 09/26/21 15:02 Labs: Abnormal lab results 09/25/21 09/25/21 09/26/21 Range/Units 15:55 19:32 06:37 WBC 16.6 H (4.8-10.8) X10*3/uL RBC 3.55 L (4.20-5.50) X10*6/uL Hgb 8.8 L (12.0-16.0) g/dl Hct 29.3 L (37.0-47.0) % MCH 24.8 L (27.0-33.0) pg MCHC 30.0 L (31.0-35.0) g/dl RDW 17.5 H (11.0-16.0) % Plt Count 734 H (160-400) X10*3/uL Chloride (96-108) mmol/L POC Glucose 134 H 158 H (60-115) mg/dL Random Glucose (60-115) mg/dL 09/26/21 09/26/21 09/26/21 Range/Units 06:37 07:12 11:00 WBC (4.8-10.8) X10*3/uL RBC (4.20-5.50) X10*6/uL Hgb (12.0-16.0) g/dl Hct (37.0-47.0) % MCH (27.0-33.0) pg MCHC (31.0-35.0) g/dl RDW (11.0-16.0) % Plt Count (160-400) X10*3/uL Chloride 109 H (96-108) mmol/L POC Glucose 138 H 219 H (60-115) mg/dL Random Glucose 160 H (60-115) mg/dL Short CBC 09/26/21 Range/Units 06:37 WBC 16.6 H (4.8-10.8) X10*3/uL Hgb 8.8 L (12.0-16.0) g/dl Hct 29.3 L (37.0-47.0) % Plt Count 734 H (160-400) X10*3/uL BMP 09/26/21 09/26/21 06:37 15:02 Sodium 145 Potassium 4.0 Chloride 109 H Carbon Dioxide 24 BUN 10 Creatinine 0.86 0.81 Calcium 8.6 All other labs normal. Assessment and Plan (1) Dry gangrene: Status: Acute (2) Chronic foot ulcer: Status: Acute (3) PVD (peripheral vascular disease): Status: Acute Plan 76 year old female with long history of dry gangrene of the foot and no improvement and her vasculature probably wont heal any debridement and potentially make her septic. she is not ambulating now anywhere so agree to do bka and have that heal well with decrease in pain Procedures Date of Service Date of Service: 09/26/21
[2021-09-26 16:09] LABS: Vancomycin Random 15.6 mcg/mL (15-20)
--- NOTE | 2021-09-26 16:31 | PHA.PROG ---
Admission Date/Time: September 24, 2021 17:42 Indication: Weight in k.7 kg Adjusted body weight in Kg: [place] body weight in Kg: Obesity Dosing Indication % IBW: Serum Creatinine - Last 168 Hours 09/24/21 09/25/21 09/26/21 15:06 07:26 06:37 Creatinine 0.83 0.75 0.86 09/26/21 15:02 Creatinine 0.81 Estimated CrCl and GFR - Last 168 Hours 09/24/21 09/25/21 09/26/21 15:06 07:26 06:37 Estim Creat Clear Calc 47.7 52.8 46.0 Estimated GFR > 60 > 60 > 60 09/26/21 15:02 Estim Creat Clear Calc 48.9 Estimated GFR > 60 Vancomycin Loading Dose: Current Vancomycin Dosing Regimen: Vancomycin Monitoring using AUC goal of 400 - 600 range with trough as surrogate marker: Date and Time for next Vancomycin Level to be drawn: Pharmacist Comments on Vancomycin Plan: decreseasing to 1 gm q24h, trough ordered for migue in relation to increase in cr Vancomycin dosing will take advantage of [employer] as a clinical decision support tool that uses Bayesian modeling to calculate individual patient's pharmacokinetic parameters and forecast the patient's drug concentration time course with the target goal AUC 24 range of 400 - 600 mg/L/hr.
[2021-09-26 16:32] LABS: Glucose, Whole Blood 59 mg/dL (60-115)
[2021-09-26 16:43] LABS: Glucose, Whole Blood 66 mg/dL (60-115)
[2021-09-26] MEDS: vancomycin HCL 1,000 MG in 0.9 % Sodium Chloride 250 ML 270 MG IV (18:48)
[2021-09-26 19:09] VITALS: BP 102/60; PULSE 70; RESP 18; TEMP 36.6; O2SAT 92
[2021-09-26] MEDS: traZODone HCL 50 MG TABLET PO (20:12)
[2021-09-26 20:42] LABS: Glucose, Whole Blood 147 mg/dL (60-115)
[2021-09-26 23:20] VITALS: BP 110/68; PULSE 88; RESP 18; TEMP 36.6; O2SAT 98
[2021-09-27] MEDS: Piperacillin Sodium/Tazobactam 3.375 GM in 0.9 % Sodium Chloride 50 ML IV ×5 (01:16→23:25)
[2021-09-27] MEDS: Heparin Sodium,Porcine 5,000 UNIT/ML VIAL 5000 UNIT SUBCUT ×3 (01:16→16:53)
[2021-09-27] MEDS: Acetaminophen 325 MG TABLET 650 MG PO ×2 (01:16→08:35)
[2021-09-27] MEDS: 0.9 % Sodium Chloride Flush 3 ML SYRINGE IVFLUSH ×4 (01:16→20:13)
[2021-09-27 03:31] VITALS: BP 111/57; PULSE 88; RESP 20; TEMP 37.1; O2SAT 97
[2021-09-27] MEDS: Levothyroxine Sodium 100 MCG TABLET PO (05:44)
[2021-09-27] MEDS: Omeprazole 20 MG CAPSULE.DR PO (05:44)
[2021-09-27 06:59] VITALS: BP 139/62; PULSE 68; RESP 20; TEMP 37; O2SAT 97
[2021-09-27 07:26] LABS: Glucose, Whole Blood 84 mg/dL (60-115)
[2021-09-27] MEDS: Aspirin Enteric Coated 81 MG TABLET.DR PO (08:35)
[2021-09-27] MEDS: oxyCODONE HCl Immed Release 5 MG TABLET PO ×2 (08:35→23:51)
[2021-09-27] MEDS: hydroCHLOROthiazide 12.5 MG TABLET PO (08:35)
[2021-09-27] MEDS: Ferrous Sulfate 324 MG TABLET.DR PO (08:35)
[2021-09-27] MEDS: dilTIAZem HCL CD 180 MG CAP.ER.24H 360 MG PO (08:35)
[2021-09-27] MEDS: Metoprolol Succinate ER 100 MG TAB.ER.24H PO (08:35)
[2021-09-27] MEDS: Atorvastatin Calcium 80 MG TABLET PO (08:35)
[2021-09-27] MEDS: SITagliptin Phosphate 100 MG TABLET PO (08:35)
[2021-09-27] MEDS: lisinopriL 40 MG TABLET PO (08:36)
[2021-09-27 09:09] VITALS: RESP 17
[2021-09-27] MEDS: Morphine Sulfate 2 MG/ML CARTRIDGE IVPUSH (09:09)
--- NOTE | 2021-09-27 09:36 | P.PNIM_ITS ---
Subjective Subjective Date of Service: 09/27/21 Interval History: the patient was seen and evaluated this morning Laying in bed, little bit more confused this morning Complaining of pain in her foot Reporting pain in her ankle and foot Was anxious overnight Systemic review: No fever, chills but has pain in her foot No chest pain, palpitation No shortness of breath or coughing No abdominal pain, nausea or vomiting No urinary symptoms Pain in the ankle and foot Physical Exam Vital Signs: Vital Signs: Last Vital Signs Temp 98.6 F 09/27/21 06:59 Pulse 68 09/27/21 06:59 Resp 17 09/27/21 09:09 BP 139/62 09/27/21 06:59 Pulse Ox 97 09/27/21 06:59 BMI result Body Mass Index 24.5 Const: Other: Constitutional : Alert, interactive, mildly confused interactive Neck : Normal inspection, Supple Cardiovascular : RRR, S1 S2, no lower extremity edema Respiratory : Good bilateral air entry,? no crackles, wheezes or rhonchi Gastrointestinal:? soft, lax, Normal bowel sounds, Non tender Skin :? Dry gangrene in the right foot with black discoloration in Right heel and left base of toe ulcer Neurological : Alert & oriented to self but not to place, mildly confused No focal deficit Objective Data Active Medications Acetaminophen (Acetaminophen 325 Mg Tablet) 650 mg PO Q6H PRN PRN Reason: Pain, Mild (Pain Scale 1-3) Last Admin: 09/27/21 08:35 Dose: 650 mg Documented by: COTEMA Aspirin (Aspirin Enteric Coated 81 Mg Tablet.) 81 mg PO DAILY [facility] Last Admin: 09/27/21 08:35 Dose: 81 mg Documented by: COTEMA Atorvastatin Calcium (Atorvastatin Calcium 80 Mg Tablet) 80 mg PO DAILY [facility] Last Admin: 09/27/21 08:35 Dose: 80 mg Documented by: COTEMA Diltiazem HCl (Diltiazem Hcl Cd 180 Mg Cap.Er.24h) 360 mg PO DAILY [facility]; Protocol Last Admin: 09/27/21 08:35 Dose: 360 mg Documented by: COTEMA Ferrous Sulfate (Ferrous Sulfate 324 Mg Tablet.) 324 mg PO BIDWM [facility] Last Admin: 09/27/21 08:35 Dose: 324 mg Documented by: COTEMA Heparin Sodium (Porcine) (Heparin Sodium,Porcine 5,000 Unit/Ml Vial) 5,000 unit SUBCUT Q8H [facility] Last Admin: 09/27/21 08:34 Dose: 5,000 unit Documented by: COTEMA Hydrochlorothiazide (Hydrochlorothiazide 12.5 Mg Tablet) 12.5 mg PO DAILY [facility]; Protocol Last Admin: 09/27/21 08:35 Dose: 12.5 mg Documented by: COTEMA Piperacillin Sod/Tazobactam (Sod 3.375 gm/ Sodium Chloride) 50 mls @ 100 mls/hr IV Q6H [facility] Last Infusion: 09/27/21 06:22 Dose: 0 mls/hr Documented by: ANTOIC Vancomycin HCl 1,000 mg/ (Sodium Chloride) 270 mls @ 270 mls/hr IV Q24H [facility] Last Infusion: 09/26/21 19:57 Dose: 0 mls/hr Documented by: BEV Insulin Glargine (Insulin Glargine,Hum.Rec.Anlog 100 Unit/Ml 10 Ml Vial) 15 unit SUBCUT BEDTIME [facility] Last Admin: 09/26/21 21:05 Dose: Not Given Documented by: BEV Non-Admin Reason: No Insulin Coverage Insulin Human Lispro (Insulin Lispro 100 Unit/Ml 3 Ml Vial) 0 unit SUBCUT QIDACHS [facility]; Protocol Last Admin: 09/27/21 07:27 Dose: Not Given Documented by: CECILIO Non-Admin Reason: No Insulin Coverage Levothyroxine Sodium (Levothyroxine Sodium 100 Mcg Tablet) 100 mcg PO DAILY@0600 [facility] Last Admin: 09/27/21 05:44 Dose: 100 mcg Documented by: BEV Lisinopril (Lisinopril 40 Mg Tablet) 40 mg PO DAILY [facility]; Protocol Last Admin: 09/27/21 08:36 Dose: 40 mg Documented by: COTBEBETO Metoprolol Succinate (Metoprolol Succinate Er 100 Mg Tab.Er.24h) 100 mg PO DAILY [facility]; Protocol Last Admin: 09/27/21 08:35 Dose: 100 mg Documented by: COTEMA Omeprazole (Omeprazole 20 Mg Capsule.Dr) 20 mg PO DAILY@0630 [facility] Last Admin: 09/27/21 05:44 Dose: 20 mg Documented by: ANTOIC Ondansetron HCl (Ondansetron Hcl 4 Mg/2 Ml Vial) 4 mg IVPUSH Q8H PRN PRN Reason: Nausea and Vomiting Oxycodone HCl (Oxycodone Hcl Immed Release 5 Mg Tablet) 5 mg PO BID PRN PRN Reason: Pain, Severe (Pain Scale 7-10) Last Admin: 09/27/21 08:35 Dose: 5 mg Documented by: CECILIO Pharmacy Consult (Consult Rx Vancomycin Dosing) 1 each MISCELLANE DAILY PRN PRN Reason: Consult order Sitagliptin Phosphate (Sitagliptin Phosphate 100 Mg Tablet) 100 mg PO DAILY [facility] Last Admin: 09/27/21 08:35 Dose: 100 mg Documented by: CECILIO Sodium Chloride (0.9 % Sodium Chloride Flush 3 Ml Syringe) 3 ml IVFLUSH QSHIFT [facility] Last Admin: 09/27/21 08:35 Dose: 3 ml Documented by: COTBEBETO Trazodone HCl (Trazodone Hcl 50 Mg Tablet) 50 mg PO BEDTIME [facility] Last Admin: 09/26/21 20:12 Dose: 50 mg Documented by: ANTOIC Labs CBC & Chem 7: 09/26/21 06:37 09/26/21 15:02 Labs: Laboratory Results - last 24 hr 09/26/21 09/26/21 09/26/21 11:00 15:02 15:02 Estim Creat Clear Calc 48.9 Estimated GFR > 60 POC Glucose 219 H Random Vancomycin 15.6 Blood Type Antibody Screen 09/26/21 09/26/21 09/26/21 16:17 16:39 20:30 Estim Creat Clear Calc Estimated GFR POC Glucose 59 L* 66 147 H Random Vancomycin Blood Type Antibody Screen 09/27/21 09/27/21 06:17 06:54 Estim Creat Clear Calc Estimated GFR POC Glucose 84 Random Vancomycin Blood Type A Negative Antibody Screen NEGATIVE Microbiology Microbiology Results: Microbiology 09/24/21 15:19 Blood Culture - Preliminary Blood - Venous No growth after 48 hours. 09/24/21 15:06 Blood Culture - Preliminary Blood - Venous No growth after 48 hours. Assessment and Plan (1) Dry gangrene: Status: Acute (2) Chronic foot ulcer: Status: Acute (3) Cellulitis of foot, right: Status: Acute Plan A 76 years old lady with PMH of PVD, HTN, diabetes, hypothyroidism among others who presents to the hospital with right foot pain and swelling. Sepsis, resolved Secondary to right diabetic foot infection, dry gangrene Negative lactic acid Pending Blood cultures Continue broad-spectrum antibiotics vascular surgery evaluation, plan for amputation Tuesday morning Id and General surgery evaluation for 2nd opinion with recommended below knee am putation Type 2 diabetes Hold oral medications Insulin diabetic diet Hypertension continue Cardizem, lisinopril and metoprolol Neuropathy continue pregabalin PVD continue aspirin and atorvastatin DVT PPX Heparin Quality Stroke Does the patient have a stroke diagnosis?: No VTE Prior VTE?: No VTE Risk Level:: Medical - moderate - high VTE Device Contraindication: Treatment Not Indicated VTE Drug Contraindication: N/A - Med Ordered
[2021-09-27 10:39] VITALS: BP 120/60; PULSE 76; RESP 20; TEMP 36.2; O2SAT 100
[2021-09-27 10:48] LABS: Glucose, Whole Blood 114 mg/dL (60-115)
[2021-09-27 15:18] LABS: Creatinine Clr Calc Pharmacy 50.1; Estimated Glomerular Filt Rate > 60
[2021-09-27 15:21] VITALS: BP 145/72; PULSE 95; RESP 16; TEMP 37.1; O2SAT 94
[2021-09-27 15:55] VITALS: BP 135/90; PULSE 95; RESP 18; TEMP 37.1
[2021-09-27 16:08] LABS: Glucose, Whole Blood 104 mg/dL (60-115)
--- NOTE | 2021-09-27 18:09 | PHA.PROG ---
Admission Date/Time: September 24, 2021 17:42 Indication: Weight in k.7 kg Adjusted body weight in Kg: [place] body weight in Kg: Obesity Dosing Indication % IBW: Serum Creatinine - Last 168 Hours 09/24/21 09/25/21 09/26/21 15:06 07:26 06:37 Creatinine 0.83 0.75 0.86 09/26/21 09/27/21 15:02 14:57 Creatinine 0.81 0.79 Estimated CrCl and GFR - Last 168 Hours 09/24/21 09/25/21 09/26/21 15:06 07:26 06:37 Estim Creat Clear Calc 47.7 52.8 46.0 Estimated GFR > 60 > 60 > 60 09/26/21 09/27/21 15:02 14:57 Estim Creat Clear Calc 48.9 50.1 Estimated GFR > 60 > 60 Vancomycin Loading Dose: Current Vancomycin Dosing Regimen: Vancomycin Monitoring using AUC goal of 400 - 600 range with trough as surrogate marker: Date and Time for next Vancomycin Level to be drawn: Vancomycin Trough 18.0 mcg/mL (10.0-20.0) 09/27/21 14:57 Pharmacist Comments on Vancomycin Plan:decreased dose to 750 mg q24h with trough to be drawn 09/27/21. insight predicts an auc 407 with a trough of 12.4 but judging on current trend may need to decrease further to 500 mg q24h Vancomycin dosing will take advantage of [employer] as a clinical decision support tool that uses Bayesian modeling to calculate individual patient's pharmacokinetic parameters and forecast the patient's drug concentration time course with the target goal AUC 24 range of 400 - 600 mg/L/hr.
[2021-09-27] MEDS: traZODone HCL 50 MG TABLET PO (20:12)
[2021-09-27] MEDS: vancomycin HCL 750 MG in 0.9 % Sodium Chloride 250 ML 265 MG IV (20:12)
[2021-09-27 20:22] LABS: Glucose, Whole Blood 118 mg/dL (60-115)
[2021-09-28] VITALS (14 sets, daily range): BP systolic 114–165; BP diastolic 59–112; PULSE 81–124; RESP 14–19; TEMP 36.4–37.7; O2SAT 90–100
[2021-09-28] MEDS: Piperacillin Sodium/Tazobactam 3.375 GM in 0.9 % Sodium Chloride 50 ML IV ×4 (05:19→22:46)
[2021-09-28 07:15] LABS: Anion Gap 19 (12-20); Blood Urea Nitrogen 8 mg/dL (9-16); Carbon Dioxide 18 mmol/L (22-29); Chloride 107 mmol/L (96-108); Creatinine Clr Calc Pharmacy 52.8; Estimated Glomerular Filt Rate > 60; Glucose Random 135 mg/dL (60-115); Potassium 3.9 mmol/L (3.3-5.1); Sodium 140 mmol/L (135-145)
[2021-09-28 07:43] LABS: Glucose, Whole Blood 132 mg/dL (60-115)
[2021-09-28] MEDS: dilTIAZem HCL CD 180 MG CAP.ER.24H 360 MG PO (07:55)
[2021-09-28] MEDS: Aspirin Enteric Coated 81 MG TABLET.DR PO (07:55)
[2021-09-28] MEDS: hydroCHLOROthiazide 12.5 MG TABLET PO (07:55)
[2021-09-28] MEDS: SITagliptin Phosphate 100 MG TABLET PO (07:55)
[2021-09-28] MEDS: Ferrous Sulfate 324 MG TABLET.DR PO (07:55)
[2021-09-28] MEDS: Metoprolol Succinate ER 100 MG TAB.ER.24H PO (07:55)
[2021-09-28] MEDS: Atorvastatin Calcium 80 MG TABLET PO (07:55)
[2021-09-28] MEDS: lisinopriL 40 MG TABLET PO (07:55)
[2021-09-28] MEDS: 0.9 % Sodium Chloride Flush 3 ML SYRINGE IVFLUSH ×3 (07:56→20:42)
--- NOTE | 2021-09-28 10:00 | HO.PM.IMPN ---
Subjective Subjective Date of Service: 09/28/21 Interval History: the patient was seen and evaluated this morning Laying in bed, anxious and worried about going for the surgery Reporting pain in her ankle and foot Was anxious overnight Systemic review: No fever, chills but has pain in her foot and looks anxious No chest pain, palpitation No shortness of breath or coughing No abdominal pain, nausea or vomiting No urinary symptoms Pain in the ankle and foot Physical Exam Vital Signs: Vital Signs: Last Vital Signs Temp 99.9 F 09/28/21 07:15 Pulse 124 H 09/28/21 07:15 Resp 18 09/28/21 07:15 BP 138/80 09/28/21 07:15 Pulse Ox 95 09/28/21 07:15 BMI result Body Mass Index 24.5 Const: Other: Constitutional : Alert, interactive, mildly anxious Neck : Normal inspection, Supple Cardiovascular : RRR, S1 S2, no lower extremity edema Respiratory : Good bilateral air entry,? no crackles, wheezes or rhonchi Gastrointestinal:? soft, lax, Normal bowel sounds, Non tender Skin :? Dry gangrene in the right foot with black discoloration in Right heel and left base of toe ulcer Neurological : Alert & oriented to self but not to place, mildly confused No focal deficit Objective Data Active Medications Acetaminophen (Acetaminophen 325 Mg Tablet) 650 mg PO Q6H PRN PRN Reason: Pain, Mild (Pain Scale 1-3) Last Admin: 09/27/21 08:35 Dose: 650 mg Documented by: CECILIO Aspirin (Aspirin Enteric Coated 81 Mg Tablet.) 81 mg PO DAILY [facility] Last Admin: 09/28/21 07:55 Dose: 81 mg Documented by: HALLE Atorvastatin Calcium (Atorvastatin Calcium 80 Mg Tablet) 80 mg PO DAILY [facility] Last Admin: 09/28/21 07:55 Dose: 80 mg Documented by: HALLE Diltiazem HCl (Diltiazem Hcl Cd 180 Mg Cap.Er.24h) 360 mg PO DAILY [facility]; Protocol Last Admin: 09/28/21 07:55 Dose: 360 mg Documented by: HALLE Ferrous Sulfate (Ferrous Sulfate 324 Mg Tablet.) 324 mg PO BIDWM [facility] Last Admin: 09/28/21 07:55 Dose: 324 mg Documented by: HALLE Heparin Sodium (Porcine) (Heparin Sodium,Porcine 5,000 Unit/Ml Vial) 5,000 unit SUBCUT Q8H [facility] Last Admin: 09/28/21 09:50 Dose: Not Given Documented by: HALLE Non-Admin Reason: pre op Hydrochlorothiazide (Hydrochlorothiazide 12.5 Mg Tablet) 12.5 mg PO DAILY [facility]; Protocol Last Admin: 09/28/21 07:55 Dose: 12.5 mg Documented by: HALLE Piperacillin Sod/Tazobactam (Sod 3.375 gm/ Sodium Chloride) 50 mls @ 100 mls/hr IV Q6H [facility] Last Infusion: 09/28/21 05:51 Dose: 0 mls/hr Documented by: FERNANDO Vancomycin HCl 750 mg/ Sodium (Chloride) 265 mls @ 265 mls/hr IV Q24H [facility] Last Infusion: 09/27/21 21:28 Dose: 0 mls/hr Documented by: FERNANDO Insulin Glargine (Insulin Glargine,Hum.Rec.Anlog 100 Unit/Ml 10 Ml Vial) 15 unit SUBCUT BEDTIME [facility] Last Admin: 09/27/21 20:30 Dose: Not Given Documented by: FERNANDO Non-Admin Reason: No Insulin Coverage Insulin Human Lispro (Insulin Lispro 100 Unit/Ml 3 Ml Vial) 0 unit SUBCUT QIDACHS [facility]; Protocol Last Admin: 09/28/21 07:46 Dose: Not Given Documented by: HALLE Non-Admin Reason: No Insulin Coverage Levothyroxine Sodium (Levothyroxine Sodium 100 Mcg Tablet) 100 mcg PO DAILY@0600 [facility] Last Admin: 09/28/21 05:20 Dose: Not Given Documented by: FERNANDO Non-Admin Reason: NPO Lisinopril (Lisinopril 40 Mg Tablet) 40 mg PO DAILY [facility]; Protocol Last Admin: 09/28/21 07:55 Dose: 40 mg Documented by: HALLE Metoprolol Succinate (Metoprolol Succinate Er 100 Mg Tab.Er.24h) 100 mg PO DAILY [facility]; Protocol Last Admin: 09/28/21 07:55 Dose: 100 mg Documented by: HALLE Morphine Sulfate (Morphine Sulfate 4 Mg/Ml Cartridge) 3 mg IVPUSH Q4H PRN; Protocol PRN Reason: Pain, Severe (Pain Scale 7-10) Omeprazole (Omeprazole 20 Mg Capsule.Dr) 20 mg PO DAILY@0630 [facility] Last Admin: 09/28/21 05:20 Dose: Not Given Documented by: FERNANDO Non-Admin Reason: NPO Ondansetron HCl (Ondansetron Hcl 4 Mg/2 Ml Vial) 4 mg IVPUSH Q8H PRN PRN Reason: Nausea and Vomiting Oxycodone HCl (Oxycodone Hcl Immed Release 5 Mg Tablet) 5 mg PO BID PRN PRN Reason: Pain, Severe (Pain Scale 7-10) Last Admin: 09/27/21 23:51 Dose: 5 mg Documented by: FERNANDO Pharmacy Consult (Consult Rx Vancomycin Dosing) 1 each MISCELLANE DAILY PRN PRN Reason: Consult order Sitagliptin Phosphate (Sitagliptin Phosphate 100 Mg Tablet) 100 mg PO DAILY [facility] Last Admin: 09/28/21 07:55 Dose: 100 mg Documented by: HALLE Sodium Chloride (0.9 % Sodium Chloride Flush 3 Ml Syringe) 3 ml IVFLUSH QSHIFT [facility] Last Admin: 09/28/21 07:56 Dose: 3 ml Documented by: HALLE Trazodone HCl (Trazodone Hcl 50 Mg Tablet) 50 mg PO BEDTIME [facility] Last Admin: 09/27/21 20:12 Dose: 50 mg Documented by: FERNANDO Labs CBC & Chem 7: 09/26/21 06:37 09/28/21 06:18 Labs: Laboratory Results - last 24 hr 09/27/21 09/27/21 09/27/21 10:44 14:57 14:57 Anion Gap Estim Creat Clear Calc 50.1 Estimated GFR > 60 POC Glucose 114 Random Glucose Calcium Vancomycin Trough 18.0 09/27/21 09/27/21 09/28/21 16:04 20:19 06:18 Anion Gap Estim Creat Clear Calc Cancelled Estimated GFR Cancelled POC Glucose 104 118 H Random Glucose Calcium Vancomycin Trough 09/28/21 09/28/21 06:18 07:13 Anion Gap 19 Estim Creat Clear Calc 52.8 Estimated GFR > 60 POC Glucose 132 H Random Glucose 135 H Calcium 8.0 L D Vancomycin Trough Assessment and Plan (1) Dry gangrene: Status: Acute (2) Chronic foot ulcer: Status: Acute Plan A 76 years old lady with PMH of PVD, HTN, diabetes, hypothyroidism among others who presents to the hospital with right foot pain and swelling. Sepsis, resolved Secondary to right diabetic foot infection, dry gangrene Negative lactic acid Negative Blood cultures Continue broad-spectrum antibiotics vascular surgery evaluation, plan for amputation today Id and General surgery evaluation for 2nd opinion with recommended below knee amputation Type 2 diabetes Hold oral medications Insulin diabetic diet Hypertension continue Cardizem, lisinopril and metoprolol Neuropathy continue pregabalin PVD continue aspirin and atorvastatin DVT PPX Heparin Quality Stroke Does the patient have a stroke diagnosis?: No VTE Prior VTE?: No VTE Risk Level:: Medical - moderate - high VTE Device Contraindication: Treatment Not Indicated VTE Drug Contraindication: N/A - Med Ordered
[2021-09-28 11:43] LABS: Glucose, Whole Blood 157 mg/dL (60-115)
--- NOTE | 2021-09-28 12:11 | HO.ANESPROP2 ---
HPI - Anesthesia Eval Consult details Narrative: chronic ulcer right foot PMFSH Active Problems Active Problems: All Active Problems (Updated 09/24/21 @ 17:57 by Graciela Carson MD) Sepsis (Acute) Dry gangrene (Acute) Chronic foot ulcer (Acute) PVD (peripheral vascular disease) (Acute) Anemia (Acute) Cellulitis of foot, right (Acute) Hypercholesterolemia (Acute) S/P cholecystectomy (Acute) HTN (hypertension) (Acute) Epidermal inclusion cyst (Acute) Tendinitis of left rotator cuff (Acute) Cholecystitis, acute with cholelithiasis (Acute) Past Medical History Medical History Anemia in chronic kidney disease Anxiety Asthma Depression Diabetes mellitus Diabetic neuropathy Dysphagia Fibromyalgia GERD (gastroesophageal reflux disease) Hiatal hernia HTN (hypertension) Hx of gastritis Hypercholesterolemia Hypothyroidism IBS (irritable bowel syndrome) Mini stroke Mononeuritis On beta jeannie at home Osteoarthritis Osteoporosis PAD (peripheral artery disease) Vitamin B 12 deficiency Family History Family History Sister Diabetes Family history of problems with anesthesia: No Surgical History Surgical History H/O local excision of skin lesion History of ankle surgery History of back surgery History of esophagogastroduodenoscopy (EGD) History of open reduction and internal fixation (ORIF) procedure Hx of hysterectomy History of Problems with Anesthesia: No Social History Social History Household Members: Family Housing: House Do you presently have visiting nurse or other home services: Yes Unable to assess alcohol history related to: Unknown Alcohol intake: never Patient Tobacco Use Status: Former Tobacco user Quit Date: >20 yr ago e-Cigarette/Vaping Use: Never Used Second Hand Smoke Exposure: No Use of substances other than those prescribed or required for medical reasons: No Currently Displaying Signs/Symptoms of Drug Intoxication Withdrawal: No Have you been hit, kicked, punched, or otherwise hurt by someone within the past year? 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 Meds Allergies Allergy/AdvReac Type Severity Reaction Status Date / Time ibuprofen [From MOTRIN] Allergy Unknown UPSET Verified 09/24/21 13:23 STOMACH Active Medications: Current Medications Acetaminophen (Acetaminophen 325 Mg Tablet) 650 mg PO Q6H PRN PRN Reason: Pain, Mild (Pain Scale 1-3) Last Admin: 09/27/21 08:35 Dose: 650 mg Documented by: Aspirin (Aspirin Enteric Coated 81 Mg Tablet.) 81 mg PO DAILY [facility] Last Admin: 09/28/21 07:55 Dose: 81 mg Documented by: Atorvastatin Calcium (Atorvastatin Calcium 80 Mg Tablet) 80 mg PO DAILY [facility] Last Admin: 09/28/21 07:55 Dose: 80 mg Documented by: Diltiazem HCl (Diltiazem Hcl Cd 180 Mg Cap.Er.24h) 360 mg PO DAILY [facility]; Protocol Last Admin: 09/28/21 07:55 Dose: 360 mg Documented by: Ferrous Sulfate (Ferrous Sulfate 324 Mg Tablet.) 324 mg PO BIDWM [facility] Last Admin: 09/28/21 07:55 Dose: 324 mg Documented by: Heparin Sodium (Porcine) (Heparin Sodium,Porcine 5,000 Unit/Ml Vial) 5,000 unit SUBCUT Q8H [facility] Last Admin: 09/28/21 09:50 Dose: Not Given Documented by: Hydrochlorothiazide (Hydrochlorothiazide 12.5 Mg Tablet) 12.5 mg PO DAILY [facility]; Protocol Last Admin: 09/28/21 07:55 Dose: 12.5 mg Documented by: Piperacillin Sod/Tazobactam (Sod 3.375 gm/ Sodium Chloride) 50 mls @ 100 mls/hr IV Q6H [facility] Last Admin: 09/28/21 11:08 Dose: 100 mls/hr Documented by: Vancomycin HCl 750 mg/ Sodium (Chloride) 265 mls @ 265 mls/hr IV Q24H [facility] Last Infusion: 09/27/21 21:28 Dose: Infused Documented by: Insulin Glargine (Insulin Glargine,Hum.Rec.Anlog 100 Unit/Ml 10 Ml Vial) 15 unit SUBCUT BEDTIME [facility] Last Admin: 09/27/21 20:30 Dose: Not Given Documented by: Insulin Human Lispro (Insulin Lispro 100 Unit/Ml 3 Ml Vial) 0 unit SUBCUT QIDACHS [facility]; Protocol Last Admin: 09/28/21 07:46 Dose: Not Given Documented by: Levothyroxine Sodium (Levothyroxine Sodium 100 Mcg Tablet) 100 mcg PO DAILY@0600 [facility] Last Admin: 09/28/21 05:20 Dose: Not Given Documented by: Lisinopril (Lisinopril 40 Mg Tablet) 40 mg PO DAILY [facility]; Protocol Last Admin: 09/28/21 07:55 Dose: 40 mg Documented by: Metoprolol Succinate (Metoprolol Succinate Er 100 Mg Tab.Er.24h) 100 mg PO DAILY [facility]; Protocol Last Admin: 09/28/21 07:55 Dose: 100 mg Documented by: Morphine Sulfate (Morphine Sulfate 4 Mg/Ml Cartridge) 3 mg IVPUSH Q4H PRN; Protocol PRN Reason: Pain, Severe (Pain Scale 7-10) Omeprazole (Omeprazole 20 Mg Capsule.Dr) 20 mg PO DAILY@0630 [facility] Last Admin: 09/28/21 05:20 Dose: Not Given Documented by: Ondansetron HCl (Ondansetron Hcl 4 Mg/2 Ml Vial) 4 mg IVPUSH Q8H PRN PRN Reason: Nausea and Vomiting Oxycodone HCl (Oxycodone Hcl Immed Release 5 Mg Tablet) 5 mg PO BID PRN PRN Reason: Pain, Severe (Pain Scale 7-10) Last Admin: 09/27/21 23:51 Dose: 5 mg Documented by: Pharmacy Consult (Consult Rx Vancomycin Dosing) 1 each MISCELLANE DAILY PRN PRN Reason: Consult order Sitagliptin Phosphate (Sitagliptin Phosphate 100 Mg Tablet) 100 mg PO DAILY [facility] Last Admin: 09/28/21 07:55 Dose: 100 mg Documented by: Sodium Chloride (0.9 % Sodium Chloride Flush 3 Ml Syringe) 3 ml IVFLUSH QSHIFT [facility] Last Admin: 09/28/21 07:56 Dose: 3 ml Documented by: Trazodone HCl (Trazodone Hcl 50 Mg Tablet) 50 mg PO BEDTIME [facility] Last Admin: 09/27/21 20:12 Dose: 50 mg Documented by: Home Medications Medication Instructions Recorded Confirmed Last Taken Type aspirin 81 mg tablet,delayed 81 mg PO DAILY 05/23/20 09/24/21 08/11/21 History release citalopram 20 mg tablet 20 mg PO DAILY 05/23/20 09/24/21 08/11/21 History diltiazem HCl 360 mg capsule,24 360 mg PO DAILY 05/23/20 09/24/21 08/11/21 History hr,extended release glipizide 10 mg tablet, extended 10 mg PO DAILY 05/23/20 09/24/21 08/11/21 History release 24 hr hydrochlorothiazide 12.5 mg capsule 12.5 mg PO DAILY 05/23/20 09/24/21 08/11/21 History levothyroxine 100 mcg tablet 100 mcg PO DAILY 05/23/20 09/24/21 08/11/21 History lisinopril 40 mg tablet 40 mg PO DAILY 05/23/20 09/24/21 08/11/21 History metformin 500 mg tablet,extended 1,000 mg PO BID 05/23/20 09/24/21 08/11/21 History release 24 hr metoprolol succinate 100 mg 100 mg PO DAILY 05/23/20 09/24/21 08/11/21 History tablet,extended release 24 hr pregabalin 200 mg capsule 200 mg PO BEDTIME 05/23/20 09/24/21 Unknown History sitagliptin 100 mg tablet 100 mg PO DAILY 05/23/20 09/24/21 08/11/21 History trazodone 50 mg tablet 50 mg PO BEDTIME 05/23/20 09/24/21 08/11/21 History atorvastatin 80 mg tablet 1 tab PO DAILY 08/12/21 09/24/21 08/11/21 History denosumab 60 mg/mL subcutaneous 60 mg SUBCUT [id number] 08/12/21 09/24/21 Unknown History syringe (Prolia) insulin glargine 100 unit/mL (3 15 unit SUBCUT BEDTIME 08/12/21 09/24/21 Unknown History mL) subcutaneous pen (Lantus Solostar U-100 Insulin) melatonin 5 mg tablet 10 mg PO BEDTIME 08/12/21 09/24/21 08/11/21 History meloxicam 7.5 mg tablet 1 tab PO DAILY 08/12/21 09/24/21 Unknown History pregabalin 100 mg capsule 100 mg PO DAILY 08/12/21 09/24/21 Unknown History omeprazole 20 mg capsule,delayed 20 mg PO DAILY 09/24/21 09/24/21 Unknown History release oxycodone 5 mg tablet 1 tab PO BID PRN 09/24/21 09/24/21 Unknown History Exam Exam Date and Time: September 28, 2021 1211 Height,Weight and Vital Signs: Height 5 ft 3 in Weight 62.7 kg Last Vital Signs Temp 98.2 F 09/28/21 11:29 Pulse 97 09/28/21 11:29 Resp 18 09/28/21 11:29 BP 117/59 L 09/28/21 11:29 Pulse Ox 97 09/28/21 11:29 Pertinent Lab Results Pertinent Lab Results: Laboratory Tests 09/24/21 09/24/21 09/24/21 15:06 15:06 15:06 WBC 19.1 H RBC 3.61 L Hgb 8.9 L Hct 29.3 L MCV 81.2 MCH 24.7 L MCHC 30.4 L RDW 17.6 H Plt Count 725 H MPV 9.8 Immature Gran % (Auto) 0.6 H Neut % (Auto) 80.0 H Lymph % (Auto) 12.3 L [place] % (Auto) 6.7 Eos % (Auto) 0.1 Baso % (Auto) 0.3 Lymph # (Auto) 2.4 [place] # (Auto) 1.3 H Eos # (Auto) 0.0 Baso # (Auto) 0.1 Abs Immat Gran (auto) 0.12 H Absolute Neuts (auto) 15.3 H Absolute Nucleated RBC 0.000 Nucleated RBC % (auto) 0.0 PT INR Sodium 140 Potassium 4.2 Chloride 102 Carbon Dioxide 25 Anion Gap 17 BUN 17 H D Creatinine 0.83 Estim Creat Clear Calc 47.7 Estimated GFR > 60 POC Glucose Random Glucose 91 Estimat Average Glucose Hemoglobin A1c % Lactic Acid Calcium 9.2 D Total Bilirubin 0.3 Direct Bilirubin 0.2 AST 14 ALT 13 Alkaline Phosphatase 131 H Total Protein 7.0 Albumin 3.5 Vancomycin Trough Random Vancomycin COVID-19 (MOHSEN) Negative COVID-19 Clin Com See Note Blood Type Antibody Screen 09/24/21 09/24/21 09/24/21 15:06 16:44 18:46 WBC RBC Hgb Hct MCV MCH MCHC RDW Plt Count MPV Immature Gran % (Auto) Neut % (Auto) Lymph % (Auto) [place] % (Auto) Eos % (Auto) Baso % (Auto) Lymph # (Auto) [place] # (Auto) Eos # (Auto) Baso # (Auto) Abs Immat Gran (auto) Absolute Neuts (auto) Absolute Nucleated RBC Nucleated RBC % (auto) PT 14.0 H INR 1.2 H Sodium Potassium Chloride Carbon Dioxide Anion Gap BUN Creatinine Estim Creat Clear Calc Estimated GFR POC Glucose 87 Random Glucose Estimat Average Glucose Hemoglobin A1c % Lactic Acid 1.1 Calcium Total Bilirubin Direct Bilirubin AST ALT Alkaline Phosphatase Total Protein Albumin Vancomycin Trough Random Vancomycin COVID-19 (MOHSEN) [facility] Blood Type Antibody Screen 09/24/21 09/24/21 09/25/21 19:54 21:55 07:07 WBC RBC Hgb Hct MCV MCH MCHC RDW Plt Count MPV Immature Gran % (Auto) Neut % (Auto) Lymph % (Auto) [place] % (Auto) Eos % (Auto) Baso % (Auto) Lymph # (Auto) [place] # (Auto) Eos # (Auto) Baso # (Auto) Abs Immat Gran (auto) Absolute Neuts (auto) Absolute Nucleated RBC Nucleated RBC % (auto) PT INR Sodium Potassium Chloride Carbon Dioxide Anion Gap BUN Creatinine Estim Creat Clear Calc Estimated GFR POC Glucose 153 H 142 H 72 Random Glucose Estimat Average Glucose Hemoglobin A1c % Lactic Acid Calcium Total Bilirubin Direct Bilirubin AST ALT Alkaline Phosphatase Total Protein Albumin Vancomycin Trough Random Vancomycin COVID-19 (MOHSEN) COVIDImmunovaccine Blood Type Antibody Screen 09/25/21 09/25/21 09/25/21 07:26 07:26 07:26 WBC 14.9 H RBC 3.33 L Hgb 8.2 L Hct 27.2 L MCV 81.7 MCH 24.6 L MCHC 30.1 L RDW 17.5 H Plt Count 590 H MPV 10.0 Immature Gran % (Auto) Neut % (Auto) Lymph % (Auto) [place] % (Auto) Eos % (Auto) Baso % (Auto) Lymph # (Auto) [place] # (Auto) Eos # (Auto) Baso # (Auto) Abs Immat Gran (auto) Absolute Neuts (auto) Absolute Nucleated RBC 0.000 Nucleated RBC % (auto) 0.0 PT INR Sodium 143 Potassium 3.9 Chloride 110 H Carbon Dioxide 24 Anion Gap 13 BUN 13 Creatinine 0.75 Estim Creat Clear Calc 52.8 Estimated GFR > 60 POC Glucose Random Glucose 97 Estimat Average Glucose 180 Hemoglobin A1c % 7.9 Lactic Acid Calcium 8.4 D Total Bilirubin Direct Bilirubin AST ALT Alkaline Phosphatase Total Protein Albumin Vancomycin Trough Random Vancomycin COVID-19 (MOHSEN) COVID-19 [facility] Blood Type Antibody Screen 09/25/21 09/25/21 09/25/21 09:47 15:55 19:32 WBC RBC Hgb Hct MCV MCH MCHC RDW Plt Count MPV Immature Gran % (Auto) Neut % (Auto) Lymph % (Auto) [place] % (Auto) Eos % (Auto) Baso % (Auto) Lymph # (Auto) [place] # (Auto) Eos # (Auto) Baso # (Auto) Abs Immat Gran (auto) Absolute Neuts (auto) Absolute Nucleated RBC Nucleated RBC % (auto) PT INR Sodium Potassium Chloride Carbon Dioxide Anion Gap BUN Creatinine Estim Creat Clear Calc Estimated GFR POC Glucose 74 134 H 158 H Random Glucose Estimat Average Glucose Hemoglobin A1c % Lactic Acid Calcium Total Bilirubin Direct Bilirubin AST ALT Alkaline Phosphatase Total Protein Albumin Vancomycin Trough Random Vancomycin COVID-19 (MOHSEN) COVID-19 [facility] Blood Type Antibody Screen 09/26/21 09/26/21 09/26/21 06:37 06:37 07:12 WBC 16.6 H RBC 3.55 L Hgb 8.8 L Hct 29.3 L MCV 82.5 MCH 24.8 L MCHC 30.0 L RDW 17.5 H Plt Count 734 H MPV 10.1 Immature Gran % (Auto) Neut % (Auto) Lymph % (Auto) [place] % (Auto) Eos % (Auto) Baso % (Auto) Lymph # (Auto) [place] # (Auto) Eos # (Auto) Baso # (Auto) Abs Immat Gran (auto) Absolute Neuts (auto) Absolute Nucleated RBC 0.000 Nucleated RBC % (auto) 0.0 PT INR Sodium 145 Potassium 4.0 Chloride 109 H Carbon Dioxide 24 Anion Gap 16 BUN 10 Creatinine 0.86 Estim Creat Clear Calc 46.0 Estimated GFR > 60 POC Glucose 138 H Random Glucose 160 H Estimat Average Glucose Hemoglobin A1c % Lactic Acid Calcium 8.6 Total Bilirubin Direct Bilirubin AST ALT Alkaline Phosphatase Total Protein Albumin Vancomycin Trough Random Vancomycin COVID-19 (MOHSEN) COVIDImmunovaccine Blood Type Antibody Screen 09/26/21 09/26/21 09/26/21 11:00 15:02 15:02 WBC RBC Hgb Hct MCV MCH MCHC RDW Plt Count MPV Immature Gran % (Auto) Neut % (Auto) Lymph % (Auto) [place] % (Auto) Eos % (Auto) Baso % (Auto) Lymph # (Auto) [place] # (Auto) Eos # (Auto) Baso # (Auto) Abs Immat Gran (auto) Absolute Neuts (auto) Absolute Nucleated RBC Nucleated RBC % (auto) PT INR Sodium Potassium Chloride Carbon Dioxide Anion Gap BUN Creatinine 0.81 Estim Creat Clear Calc 48.9 Estimated GFR > 60 POC Glucose 219 H Random Glucose Estimat Average Glucose Hemoglobin A1c % Lactic Acid Calcium Total Bilirubin Direct Bilirubin AST ALT Alkaline Phosphatase Total Protein Albumin Vancomycin Trough Random Vancomycin 15.6 COVID-19 (MOHSEN) [employer] Blood Type Antibody Screen 09/26/21 09/26/21 09/26/21 16:17 16:39 20:30 WBC RBC Hgb Hct MCV MCH MCHC RDW Plt Count MPV Immature Gran % (Auto) Neut % (Auto) Lymph % (Auto) [place] % (Auto) Eos % (Auto) Baso % (Auto) Lymph # (Auto) [place] # (Auto) Eos # (Auto) Baso # (Auto) Abs Immat Gran (auto) Absolute Neuts (auto) Absolute Nucleated RBC Nucleated RBC % (auto) PT INR Sodium Potassium Chloride Carbon Dioxide Anion Gap BUN Creatinine Estim Creat Clear Calc Estimated GFR POC Glucose 59 L* 66 147 H Random Glucose Estimat Average Glucose Hemoglobin A1c % Lactic Acid Calcium Total Bilirubin Direct Bilirubin AST ALT Alkaline Phosphatase Total Protein Albumin Vancomycin Trough Random Vancomycin COVID-19 (MOHSEN) [employer] Blood Type Antibody Screen 09/27/21 09/27/21 09/27/21 06:17 06:54 10:44 WBC RBC Hgb Hct MCV MCH MCHC RDW Plt Count MPV Immature Gran % (Auto) Neut % (Auto) Lymph % (Auto) [place] % (Auto) Eos % (Auto) Baso % (Auto) Lymph # (Auto) [place] # (Auto) Eos # (Auto) Baso # (Auto) Abs Immat Gran (auto) Absolute Neuts (auto) Absolute Nucleated RBC Nucleated RBC % (auto) PT INR Sodium Potassium Chloride Carbon Dioxide Anion Gap BUN Creatinine Estim Creat Clear Calc Estimated GFR POC Glucose 84 114 Random Glucose Estimat Average Glucose Hemoglobin A1c % Lactic Acid Calcium Total Bilirubin Direct Bilirubin AST ALT Alkaline Phosphatase Total Protein Albumin Vancomycin Trough Random Vancomycin COVID-19 ([facility]HSEN) COVID-[facility]OL[facility] Blood Type A Negative Antibody Screen NEGATIVE 09/27/21 09/27/21 09/27/21 14:57 14:57 16:04 WBC RBC Hgb Hct MCV MCH MCHC RDW Plt Count MPV Immature Gran % (Auto) Neut % (Auto) Lymph % (Auto) [place] % (Auto) Eos % (Auto) Baso % (Auto) Lymph # (Auto) [place] # (Auto) Eos # (Auto) Baso # (Auto) Abs Immat Gran (auto) Absolute Neuts (auto) Absolute Nucleated RBC Nucleated RBC % (auto) PT INR Sodium Potassium Chloride Carbon Dioxide Anion Gap BUN Creatinine 0.79 Estim Creat Clear Calc 50.1 Estimated GFR > 60 POC Glucose 104 Random Glucose Estimat Average Glucose Hemoglobin A1c % Lactic Acid Calcium Total Bilirubin Direct Bilirubin AST ALT Alkaline Phosphatase Total Protein Albumin Vancomycin Trough 18.0 Random Vancomycin COVID-19 (MOHSEN) COVID-19 [facility] Blood Type Antibody Screen 09/27/21 09/28/21 09/28/21 20:19 06:18 06:18 WBC RBC Hgb Hct MCV MCH MCHC RDW Plt Count MPV Immature Gran % (Auto) Neut % (Auto) Lymph % (Auto) [place] % (Auto) Eos % (Auto) Baso % (Auto) Lymph # (Auto) [place] # (Auto) Eos # (Auto) Baso # (Auto) Abs Immat Gran (auto) Absolute Neuts (auto) Absolute Nucleated RBC Nucleated RBC % (auto) PT INR Sodium 140 Potassium 3.9 Chloride 107 Carbon Dioxide 18 L Anion Gap 19 BUN 8 L Creatinine Cancelled 0.75 Estim Creat Clear Calc Cancelled 52.8 Estimated GFR Cancelled > 60 POC Glucose 118 H Random Glucose 135 H Estimat Average Glucose Hemoglobin A1c % Lactic Acid Calcium 8.0 L D Total Bilirubin Direct Bilirubin AST ALT Alkaline Phosphatase Total Protein Albumin Vancomycin Trough Random Vancomycin COVID-19 (MOHSEN) COVID-19 [employer] [facility] Blood Type Antibody Screen 09/28/21 09/28/21 07:13 11:17 WBC RBC Hgb Hct MCV MCH MCHC RDW Plt Count MPV Immature Gran % (Auto) Neut % (Auto) Lymph % (Auto) [place] % (Auto) Eos % (Auto) Baso % (Auto) Lymph # (Auto) [place] # (Auto) Eos # (Auto) Baso # (Auto) Abs Immat Gran (auto) Absolute Neuts (auto) Absolute Nucleated RBC Nucleated RBC % (auto) PT INR Sodium Potassium Chloride Carbon Dioxide Anion Gap BUN Creatinine Estim Creat Clear Calc Estimated GFR POC Glucose 132 H 157 H Random Glucose Estimat Average Glucose Hemoglobin A1c % Lactic Acid Calcium Total Bilirubin Direct Bilirubin AST ALT Alkaline Phosphatase Total Protein Albumin Vancomycin Trough Random Vancomycin COVID-19 (MOHSEN) COVID-19 Clin Com Blood Type Antibody Screen Airway Mallampati Class: II TM Dist: >3cm Neck ROM: Full Loose/Missing/Broken Teeth: Yes (Patient states all teeth are hers upper and lower and not dentures of bridges) Heart: [id number] Lungs: cta b/l Assessment and Plan Final Anesthetic Review Family History of Problems with Anesthesia: No History of Problems with Anesthesia: No NPO: Yes ASA Class: IV Final Preanesthetic Review: No Changes in Pt Med Stat, Meds/Allgs Chart Reviewed, Consent Obtained/Reviewed and Anes Risks/Benef Reviewed Patient Risk: High Procedure Risk: Intermediate Assessment/Block/Sedation in SS: Assess/Block/Sedation-SS Anesthetic Plan Anesthetic Plan: GA and Agree w/ Assess. and Plan Disposition: Standard PACU
--- NOTE | 2021-09-28 12:21 | MHC.SHP ---
Pre-Procedural Eval Section A Date of Service: 09/28/21 The patient is an INPATIENT: Yes Changes since office visit: Yes Patient answered all questions The History & Physical has been completed within 30 days and I have reviewed it.: Yes Section B Chief Complaint: Foot Pain Allergies: Allergies Allergy/AdvReac Type Severity Reaction Status Date / Time ibuprofen [From MOTRIN] Allergy Unknown UPSET Verified 09/24/21 13:23 STOMACH Plan I have reviewed the history and physical and performed a pertinent physical examination on my patient. No changes have occurred unless specified.
[2021-09-28] MEDS: fentaNYL citrate/PF 100 MCG/2 ML VIAL 25 MCG IVPUSH ×2 (14:11→14:18)
[2021-09-28] MEDS: ondansetron HCL 4 MG/2 ML VIAL IVPUSH (14:13)
--- NOTE | 2021-09-28 14:22 | P.OP_ITS ---
Operative Note Operative Note Date of Service: 09/28/21 Narrative: Operative note by [facility] Preoperative diagnosis: Nonhealing right leg diabetic foot ulcer Postoperative diagnosis: Same Procedure: Right below-knee amputation Surgeon:Vinnie Ravi M.D. Sanitary Napkin Machine Tender: Anya Anesthesia: General Specimens: 1 Drains: None Estimated blood loss: 100 mL Indications: 76-year-old female with a prior history of nonhealing ulcer has been managed conservatively continues to have this nonhealing right heel ulcer. Continues to be a source of significant pain. She now presents for amputation. The healthcare proxy has signed the informed consent after reviewing risks, complications, benefits, and alternatives previously discussed with the patient. The patient was given the opportunity to ask any additional questions or voice any concerns. All questions were answered to the patient's satisfaction. Procedure in detail: Patient was brought to the operating room prior to which a time-out was called for patient identification site verification. Right leg was prepped and draped in standard surgical fashion. Approximately 10 cm below the tibial tuberosity incision was carried out over the skin fascia at tibia and fibula. In addition posterior flap was created. We then used electrocautery to dissect down. Three we were able to identify anterior tibial posterior tibial and peroneal arteries and these were ligated with 2-0 silk ties. On the tibia we made a reverse hockey stick shaped incision. And the fibula approximately 3 in below the tibial cut the fibula was transected. Using electrocautery we dissected out the posterior flap. Using electrocautery we achieved adequate hemostasis. The fascia was brought together using 2 0 poly Sorb. Superficial layer was closed off with 2 0 nylon in a mattress fashion. Finally skin clips were used. At the end the case sponge needle instrument counts were correct. Patient tolerated the procedure well. Returned to recovery with stable vitals. This note is constructed using voice recognition software. While every effort has been made to ensure accuracy, operating manager errors may have been included. Thank you for allowing me to participate in the care of your patient. Yours sincerely, Vinnie Ravi MD, FACS, R.P.V.I.
[2021-09-28 16:13] LABS: Glucose, Whole Blood 170 mg/dL (60-115)
[2021-09-28] MEDS: Insulin Lispro 100 UNIT/ML 3 ML VIAL SUBCUT ×2 (16:37→20:42)
[2021-09-28 18:47] LABS: Vancomycin Trough 8.9 mcg/mL (10.0-20.0)
--- NOTE | 2021-09-28 20:07 | PHA.PROG ---
Admission Date/Time: September 24, 2021 17:42 Indication: Indication: Sepsis (resolved) - Diabetic right foot infection Weight in k.7 kg Adjusted body weight in K.5 KG [place] body weight in K.4 KG Obesity Dosing Indication % IBW:119% Serum Creatinine - Last 168 Hours 09/24/21 09/25/21 09/26/21 15:06 07:26 06:37 Creatinine 0.83 0.75 0.86 09/26/21 09/27/21 09/28/21 15:02 14:57 06:18 Creatinine 0.81 0.79 Cancelled 09/28/21 06:18 Creatinine 0.75 Estimated CrCl and GFR - Last 168 Hours 09/24/21 09/25/21 09/26/21 15:06 07:26 06:37 Estim Creat Clear Calc 47.7 52.8 46.0 Estimated GFR > 60 > 60 > 60 09/26/21 09/27/21 09/28/21 15:02 14:57 06:18 Estim Creat Clear Calc 48.9 50.1 Cancelled Estimated GFR > 60 > 60 Cancelled 09/28/21 06:18 Estim Creat Clear Calc 52.8 Estimated GFR > 60 Vancomycin Loading Dose: 09/24: 750 mg @ 1744 + 500 mg @ 2209 Current Vancomycin Dosing Regimen: 750 mg Q24H Vancomycin Trough 8.9 mcg/mL (10.0-20.0) L 09/28/21 18:00 Pharmacist Comments on Vancomycin Plan: Patient's vancomycin level dropped to subtherpatuic levels with decrease in dose Renal function is stable Will increase to vancomycin 1000 mg Q24H. Expected AUC 432 with a trough of 11.7 Will drawn another trough in 24 hours, on 09/29 @ 1800. Dose may need to be adjust daily as patient's level has been fluctuating Pharmacy will continue to monitor renal function daily. Jenifer Rojas, James Vancomycin dosing will take advantage of [employer] as a clinical decision support tool that uses Bayesian modeling to calculate individual patient's pharmacokinetic parameters and forecast the patient's drug concentration time course with the target goal AUC 24 range of 400 - 600 mg/L/hr.
[2021-09-28 20:18] LABS: Glucose, Whole Blood 197 mg/dL (60-115)
[2021-09-28] MEDS: traZODone HCL 50 MG TABLET PO (20:41)
[2021-09-28] MEDS: vancomycin HCL 1,000 MG in 0.9 % Sodium Chloride 250 ML 270 MG IV (20:41)
[2021-09-28] MEDS: Morphine Sulfate 4 MG/ML CARTRIDGE 3 MG IVPUSH (20:53)
[2021-09-29] MEDS: Heparin Sodium,Porcine 5,000 UNIT/ML VIAL 5000 UNIT SUBCUT ×2 (03:00→17:14)
[2021-09-29 03:23] VITALS: BP 174/82; PULSE 90; RESP 20; TEMP 37.2; O2SAT 99
[2021-09-29] MEDS: Piperacillin Sodium/Tazobactam 3.375 GM in 0.9 % Sodium Chloride 50 ML IV ×4 (05:26→22:44)
[2021-09-29 07:26] VITALS: BP 165/82; PULSE 82; RESP 20; TEMP 37; O2SAT 99
[2021-09-29 07:26] LABS: Glucose, Whole Blood 198 mg/dL (60-115)
[2021-09-29 08:37] LABS: Hematocrit 28.4 % (37.0-47.0); Hemoglobin 8.4 g/dl (12.0-16.0); Mean Corpuscular HGB Conc 29.6 g/dl (31.0-35.0); Mean Corpuscular Hemoglobin 25.1 pg (27.0-33.0); Platelet Count 641 X10*3/uL (160-400); Red Blood Count 3.34 X10*6/uL (4.20-5.50); Red Cell Distribution Width 18.1 % (11.0-16.0)
[2021-09-29 08:53] LABS: Anion Gap 22 (12-20); Blood Urea Nitrogen 7 mg/dL (9-16); Calcium 7.9 mg/dL (8.4-10.2); Carbon Dioxide 15 mmol/L (22-29); Chloride 109 mmol/L (96-108); Creatinine Clr Calc Pharmacy 46.5; Estimated Glomerular Filt Rate > 60; Glucose Random 229 mg/dL (60-115); Potassium 3.5 mmol/L (3.3-5.1); Sodium 142 mmol/L (135-145)
--- NOTE | 2021-09-29 08:55 | HO.POSTANES ---
Post Anesthesia Evaluation Post Anesthesia Evaluation Vital Signs: Vital Signs Temp Pulse Resp BP Pulse Ox 09/29/21 07:26 98.6 F 82 20 165/82 H 99 09/29/21 03:23 99.0 F 90 20 174/82 H 99 09/28/21 23:14 99.6 F 95 19 135/65 90 L Anesthesia: General Mental Status: Awake Pain Control: Satisfactory Nausea/Vomiting: None Hydration: Adequate Anesthesia-Related Issues: No Anes. Related Issues
[2021-09-29 09:17] LABS: White Blood Count 30.4 X10*3/uL (4.8-10.8)
[2021-09-29] MEDS: Morphine Sulfate 4 MG/ML CARTRIDGE 3 MG IVPUSH ×2 (09:25→17:19)
[2021-09-29] MEDS: ondansetron HCL 4 MG/2 ML VIAL IVPUSH ×2 (09:26→18:02)
--- NOTE | 2021-09-29 10:08 | PC.NURSE ---
Skin/wound assessment completed today. Patient has a BKA with gauze bandage and giorgio wrap. Patient also has blanchable redness to coccyx/buttocks plus redness in melany area from incotinennce. EPC cream applied to all areas.
[2021-09-29 10:52] LABS: Glucose, Whole Blood 195 mg/dL (60-115)
[2021-09-29 11:00] VITALS: BP 162/72; PULSE 97; RESP 20; TEMP 37.2; O2SAT 100
[2021-09-29] MEDS: Insulin Lispro 100 UNIT/ML 3 ML VIAL SUBCUT ×3 (11:25→20:16)
--- NOTE | 2021-09-29 11:26 | HO.PM.IMPN ---
Subjective Subjective Date of Service: 09/29/21 Interval History: the patient was seen and evaluated this morning Laying in bed, anxious S she removed her dressing Reporting dry heaving Electrolytes showing acidosis Reporting pain at site of surgery Was anxious overnight Systemic review: No fever, chills but has pain in her foot and looks anxious No chest pain, palpitation No shortness of breath or coughing No abdominal pain, reporting dry heaving No urinary symptoms Pain in the site of surgery Physical Exam Vital Signs: Vital Signs: Last Vital Signs Temp 99.0 F 09/29/21 11:00 Pulse 97 09/29/21 11:00 Resp 20 09/29/21 11:00 BP 162/72 H 09/29/21 11:00 Pulse Ox 100 09/29/21 11:00 BMI result Body Mass Index 24.5 Const: Other: Constitutional : Alert, interactive, mildly anxious, having dry heaving Neck : Normal inspection, Supple Cardiovascular : RRR, S1 S2, no lower extremity edema Respiratory : Good bilateral air entry,? no crackles, wheezes or rhonchi Gastrointestinal:? soft, lax, Normal bowel sounds, Non tender Skin :? Below-knee amputation, wound looks clean with no erythema or bleeding. Neurological : Alert & oriented to self but not to place, mildly confused No focal deficit Objective Data Active Medications Acetaminophen (Acetaminophen 325 Mg Tablet) 650 mg PO Q6H PRN PRN Reason: Pain, Mild (Pain Scale 1-3) Last Admin: 09/27/21 08:35 Dose: 650 mg Documented by: CECILIO Aspirin (Aspirin Enteric Coated 81 Mg Tablet.) 81 mg PO DAILY [facility] Last Admin: 09/29/21 09:36 Dose: Not Given Documented by: HALLE Non-Admin Reason: Patient Refused Atorvastatin Calcium (Atorvastatin Calcium 80 Mg Tablet) 80 mg PO DAILY [facility] Last Admin: 09/29/21 09:36 Dose: Not Given Documented by: HALLE Non-Admin Reason: Patient Refused Diltiazem HCl (Diltiazem Hcl Cd 180 Mg Cap.Er.24h) 360 mg PO DAILY [facility]; Protocol Last Admin: 09/29/21 09:36 Dose: Not Given Documented by: HALLE Non-Admin Reason: Patient Refused Fentanyl (Fentanyl Citrate/Pf 100 Mcg/2 Ml Vial) 25 mcg IVPUSH Q5M PRN; Protocol PRN Reason: Pain, Moderate (Pain Scale 4-6 Last Admin: 09/28/21 14:18 Dose: 25 mcg Documented by: SAAD Ferrous Sulfate (Ferrous Sulfate 324 Mg Tablet.Dr) 324 mg PO BIDWM [facility] Last Admin: 09/29/21 08:52 Dose: Not Given Documented by: HALLE Non-Admin Reason: Patient Asleep Heparin Sodium (Porcine) (Heparin Sodium,Porcine 5,000 Unit/Ml Vial) 5,000 unit SUBCUT Q8H [facility] Last Admin: 09/29/21 10:36 Dose: Not Given Documented by: HALLE Non-Admin Reason: Patient Refused Hydrochlorothiazide (Hydrochlorothiazide 12.5 Mg Tablet) 12.5 mg PO DAILY [facility]; Protocol Last Admin: 09/29/21 09:36 Dose: Not Given Documented by: HALLE Non-Admin Reason: Patient Refused Piperacillin Sod/Tazobactam (Sod 3.375 gm/ Sodium Chloride) 50 mls @ 100 mls/hr IV Q6H [facility] Last Admin: 09/29/21 10:57 Dose: 100 mls/hr Documented by: HALLE Vancomycin HCl 1,000 mg/ (Sodium Chloride) 270 mls @ 270 mls/hr IV Q24H [facility] Last Infusion: 09/28/21 22:56 Dose: 0 mls/hr Documented by: FERNANDO Insulin Glargine (Insulin Glargine,Hum.Rec.Anlog 100 Unit/Ml 10 Ml Vial) 15 unit SUBCUT BEDTIME [facility] Last Admin: 09/28/21 20:42 Dose: Not Given Documented by: FERNANDO Non-Admin Reason: No Insulin Coverage Insulin Human Lispro (Insulin Lispro 100 Unit/Ml 3 Ml Vial) 0 unit SUBCUT QIDACHS [facility]; Protocol Last Admin: 09/29/21 08:52 Dose: Not Given Documented by: HALLE Non-Admin Reason: patient asleep/not eating Levothyroxine Sodium (Levothyroxine Sodium 100 Mcg Tablet) 100 mcg PO DAILY@0600 [facility] Last Admin: 09/29/21 05:32 Dose: Not Given Documented by: FERNANDO Non-Admin Reason: Patient Refused Lisinopril (Lisinopril 40 Mg Tablet) 40 mg PO DAILY [facility]; Protocol Last Admin: 09/29/21 09:36 Dose: Not Given Documented by: HALLE Non-Admin Reason: Patient Refused Metoprolol Succinate (Metoprolol Succinate Er 100 Mg Tab.Er.24h) 100 mg PO DAILY [facility]; Protocol Last Admin: 09/29/21 09:36 Dose: Not Given Documented by: HALLE Non-Admin Reason: Patient Refused Morphine Sulfate (Morphine Sulfate 4 Mg/Ml Cartridge) 3 mg IVPUSH Q4H PRN; Protocol PRN Reason: Pain, Severe (Pain Scale 7-10) Last Admin: 09/29/21 09:25 Dose: 3 mg Documented by: HALLE Omeprazole (Omeprazole 20 Mg Capsule.Dr) 20 mg PO DAILY@0630 [facility] Last Admin: 09/29/21 05:32 Dose: Not Given Documented by: FERNANDO Non-Admin Reason: Patient Refused Ondansetron HCl (Ondansetron Hcl 4 Mg/2 Ml Vial) 4 mg IVPUSH Q8H PRN PRN Reason: Nausea and Vomiting Last Admin: 09/29/21 09:26 Dose: 4 mg Documented by: HALLE Oxycodone HCl (Oxycodone Hcl Immed Release 5 Mg Tablet) 5 mg PO BID PRN PRN Reason: Pain, Severe (Pain Scale 7-10) Last Admin: 09/27/21 23:51 Dose: 5 mg Documented by: FERNANDO Pharmacy Consult (Consult Rx Vancomycin Dosing) 1 each MISCELLANE DAILY PRN PRN Reason: Consult order Sitagliptin Phosphate (Sitagliptin Phosphate 100 Mg Tablet) 100 mg PO DAILY [facility] Last Admin: 09/29/21 09:37 Dose: Not Given Documented by: HALLE Non-Admin Reason: Patient Refused Sodium Chloride (0.9 % Sodium Chloride Flush 3 Ml Syringe) 3 ml IVFLUSH QSHIFT [facility] Last Admin: 09/29/21 08:52 Dose: Not Given Documented by: HALLE Non-Admin Reason: Patient Asleep Trazodone HCl (Trazodone Hcl 50 Mg Tablet) 50 mg PO BEDTIME [facility] Last Admin: 09/28/21 20:41 Dose: 50 mg Documented by: FERNANDO Labs CBC & Chem 7: 09/29/21 08:15 09/29/21 08:14 Labs: Laboratory Results - last 24 hr 09/28/21 09/28/21 09/28/21 11:17 16:03 18:00 MCV MCH MCHC RDW Plt Count MPV Absolute Nucleated RBC Nucleated RBC % (auto) Anion Gap Estim Creat Clear Calc Estimated GFR POC Glucose 157 H 170 H Random Glucose Calcium Vancomycin Trough 8.9 L 09/28/21 09/29/21 09/29/21 20:08 07:10 08:14 MCV MCH MCHC RDW Plt Count MPV Absolute Nucleated RBC Nucleated RBC % (auto) Anion Gap 22 H Estim Creat Clear Calc 46.5 Estimated GFR > 60 POC Glucose 197 H 198 H Random Glucose 229 H Calcium 7.9 L Vancomycin Trough 09/29/21 09/29/21 08:15 10:47 MCV 85.0 MCH 25.1 L MCHC 29.6 L RDW 18.1 H Plt Count 641 H MPV 10.0 Absolute Nucleated RBC 0.000 Nucleated RBC % (auto) 0.0 Anion Gap Estim Creat Clear Calc Estimated GFR POC Glucose 195 H Random Glucose Calcium Vancomycin Trough Assessment and Plan (1) Dry gangrene: Status: Acute (2) Chronic foot ulcer: Status: Acute (3) Metabolic acidosis: Status: Acute (4) Leukocytosis: Status: Acute Plan A 76 years old lady with PMH of PVD, HTN, diabetes, hypothyroidism among others who presents to the hospital with right foot pain and swelling. Sepsis, resolved Secondary to right foot dry gangrene, post amputation BKA Pod 1 Negative Blood cultures Continue broad-spectrum antibiotics vascular surgery evaluation appreciated To do physical therapy Leukocytosis WBCs increased from 16-30 after surgery Could be leukemoid reaction as no fevers, chills reported Continue IV antibiotics and monitor CBC Anion gap Metabolic acidosis Bicarb dropped to 16 since the surgery No ELLEN, Check VBG, lactic acid To give sodium bicarb IV Repeat BMP this afternoon nephrology consult Type 2 diabetes Hold oral medications Insulin diabetic diet Hypertension continue Cardizem, lisinopril and metoprolol Neuropathy continue pregabalin PVD continue aspirin and atorvastatin DVT PPX Heparin Quality Stroke Does the patient have a stroke diagnosis?: No VTE Prior VTE?: No VTE Risk Level:: Medical - moderate - high VTE Device Contraindication: Treatment Not Indicated VTE Drug Contraindication: N/A - Med Ordered
[2021-09-29 12:00] VITALS: BP 162/72; PULSE 97; O2SAT 100
[2021-09-29 12:18] VITALS: O2SAT 98
[2021-09-29 12:22] LABS: Lactic Acid 1.6 mmol/L (0.5-2.0)
[2021-09-29 12:42] LABS: Acetone, serum QL Small (Negative)
[2021-09-29 12:50] LABS: Venous Blood Gas Refer to POC result
[2021-09-29 12:51] LABS: VBG Base Excess -7.3 mmol/L; VBG HCO3 15 mmol/L (22-26); VBG pCO2 24 mmHg; VBG pH 7.41 (7.32-7.43); VBG pO2 51 mmHg
[2021-09-29 12:58] LABS: Anion Gap 23 (12-20); Blood Urea Nitrogen 7 mg/dL (9-16); Calcium 8.1 mg/dL (8.4-10.2); Carbon Dioxide 17 mmol/L (22-29); Chloride 107 mmol/L (96-108); Estimated Glomerular Filt Rate 59; Glucose Random 249 mg/dL (60-115); Potassium 3.4 mmol/L (3.3-5.1); Sodium 144 mmol/L (135-145)
[2021-09-29] MEDS: Sodium Bicarbonate 8.4% 150 MEQ in Dextrose 5 % 850 ML 100 MEQ IV (14:03)
--- NOTE | 2021-09-29 14:43 | HO.VASCPN ---
Subjective Subjective Date of Service: 09/29/21 Interval history: 76-year-old female postop day 1 status post right BKA. In general she continues to be fairly confused in bed. She is somewhat somnolent. She moves around and responds when spoken to but does not have purposeful communication. She is now for routine postop follow-up. Physical Exam Vital Signs: Vital Signs: Last Vital Signs Temp 99.0 F 09/29/21 11:00 Pulse 97 09/29/21 12:00 Resp 20 09/29/21 11:00 BP 162/72 H 09/29/21 12:00 Pulse Ox 98 09/29/21 12:18 BMI result Body Mass Index 24.5 Const: General: cooperative, healthy appearing and no acute distress Orientation/consciousness: oriented to person, oriented to place and oriented to time HENMT: Head: Yes normal to inspection Neck: Carotids: no bruits Chest: Chest palpation & inspection: normal inspection of the chest Resp: Effort & Inspection: normal respiratory effort and able to speak in complete sentences Auscultation: clear to auscultation bilaterally Cardio: Rate: regular rate Heart sounds: S1 normal heart sound present and S2 normal heart sound present GI: Inspection: Yes normal to inspection Skin: General skin exam: no rashes or lesions noted Wounds: amputation site (Right side amp dressing clean dry intact) Neuro: General: oriented to person, oriented to place, oriented to time and CN's II-XI intact bilaterally Extrem: General: Yes normal to inspection, Yes full ROM and Yes no clubbing, cyanosis or edema Psych: Appearance: grossly normal and well kempt Speech and movement: Normal speech and movement present Affect: normal affect Progress Note: A&P Assessment and plan (1) PVD (peripheral vascular disease): Status: Acute Assessment and Plan: Patient is status post BKA. Would continue dressing for now. Plan for change on . Would like to start PT 1 she is less confused. We will continue to monitor her status with you. Fall Risk Details Current Medications: Current Medications Acetaminophen (Acetaminophen 325 Mg Tablet) 650 mg PO Q6H PRN PRN Reason: Pain, Mild (Pain Scale 1-3) Last Admin: 09/27/21 08:35 Dose: 650 mg Documented by: Aspirin (Aspirin Enteric Coated 81 Mg Tablet.) 81 mg PO DAILY [facility] Last Admin: 09/29/21 09:36 Dose: Not Given Documented by: Atorvastatin Calcium (Atorvastatin Calcium 80 Mg Tablet) 80 mg PO DAILY [facility] Last Admin: 09/29/21 09:36 Dose: Not Given Documented by: Diltiazem HCl (Diltiazem Hcl Cd 180 Mg Cap.Er.24h) 360 mg PO DAILY [facility]; Protocol Last Admin: 09/29/21 09:36 Dose: Not Given Documented by: Fentanyl (Fentanyl Citrate/Pf 100 Mcg/2 Ml Vial) 25 mcg IVPUSH Q5M PRN; Protocol PRN Reason: Pain, Moderate (Pain Scale 4-6 Last Admin: 09/28/21 14:18 Dose: 25 mcg Documented by: Ferrous Sulfate (Ferrous Sulfate 324 Mg Tablet.Dr) 324 mg PO BIDWM [facility] Last Admin: 09/29/21 08:52 Dose: Not Given Documented by: Heparin Sodium (Porcine) (Heparin Sodium,Porcine 5,000 Unit/Ml Vial) 5,000 unit SUBCUT Q8H [facility] Last Admin: 09/29/21 10:36 Dose: Not Given Documented by: Hydrochlorothiazide (Hydrochlorothiazide 12.5 Mg Tablet) 12.5 mg PO DAILY [facility]; Protocol Last Admin: 09/29/21 09:36 Dose: Not Given Documented by: Piperacillin Sod/Tazobactam (Sod 3.375 gm/ Sodium Chloride) 50 mls @ 100 mls/hr IV Q6H [facility] Last Infusion: 09/29/21 11:42 Dose: Infused Documented by: Vancomycin HCl 1,000 mg/ (Sodium Chloride) 270 mls @ 270 mls/hr IV Q24H [facility] Last Infusion: 09/28/21 22:56 Dose: Infused Documented by: Sodium Bicarbonate 150 meq/ (Dextrose) 1,000 mls @ 100 mls/hr IV .Q10H [facility] Stop: 09/30/21 08:29 Last Admin: 09/29/21 14:03 Dose: 100 mls/hr Documented by: Insulin Glargine (Insulin Glargine,Hum.Rec.Anlog 100 Unit/Ml 10 Ml Vial) 15 unit SUBCUT BEDTIME [facility] Last Admin: 09/28/21 20:42 Dose: Not Given Documented by: Insulin Human Lispro (Insulin Lispro 100 Unit/Ml 3 Ml Vial) 0 unit SUBCUT QIDACHS [facility]; Protocol Last Admin: 09/29/21 11:25 Dose: 2 unit Documented by: Levothyroxine Sodium (Levothyroxine Sodium 100 Mcg Tablet) 100 mcg PO DAILY@0600 [facility] Last Admin: 09/29/21 05:32 Dose: Not Given Documented by: Lisinopril (Lisinopril 40 Mg Tablet) 40 mg PO DAILY [facility]; Protocol Last Admin: 09/29/21 09:36 Dose: Not Given Documented by: Metoprolol Succinate (Metoprolol Succinate Er 100 Mg Tab.Er.24h) 100 mg PO DAILY [facility]; Protocol Last Admin: 09/29/21 09:36 Dose: Not Given Documented by: Morphine Sulfate (Morphine Sulfate 4 Mg/Ml Cartridge) 3 mg IVPUSH Q4H PRN; Protocol PRN Reason: Pain, Severe (Pain Scale 7-10) Last Admin: 09/29/21 09:25 Dose: 3 mg Documented by: Omeprazole (Omeprazole 20 Mg Capsule.Dr) 20 mg PO DAILY@0630 [facility] Last Admin: 09/29/21 05:32 Dose: Not Given Documented by: Ondansetron HCl (Ondansetron Hcl 4 Mg/2 Ml Vial) 4 mg IVPUSH Q8H PRN PRN Reason: Nausea and Vomiting Last Admin: 09/29/21 09:26 Dose: 4 mg Documented by: Oxycodone HCl (Oxycodone Hcl Immed Release 5 Mg Tablet) 5 mg PO BID PRN PRN Reason: Pain, Severe (Pain Scale 7-10) Last Admin: 09/27/21 23:51 Dose: 5 mg Documented by: Pharmacy Consult (Consult Rx Vancomycin Dosing) 1 each MISCELLANE DAILY PRN PRN Reason: Consult order Sodium Bicarbonate (Sodium Bicarbonate 650 Mg Tablet) 650 mg PO BID [facility] Sodium Chloride (0.9 % Sodium Chloride Flush 3 Ml Syringe) 3 ml IVFLUSH QSHIFT [facility] Last Admin: 09/29/21 08:52 Dose: Not Given Documented by: Trazodone HCl (Trazodone Hcl 50 Mg Tablet) 50 mg PO BEDTIME [facility] Last Admin: 09/28/21 20:41 Dose: 50 mg Documented by: Time Spent With Patient Time: Total time spent is greater than 50% in coordination of care (as documented) at patient's floor/unit and/or counseling patient: Time with patient: 15 - 24 minutes Procedures Date of Service Date of Service: 09/29/21 Quality Stroke Does the patient have a stroke diagnosis?: No VTE Prior VTE?: No VTE Risk Level:: Medical - moderate - high VTE Device Contraindication: Treatment Not Indicated VTE Drug Contraindication: N/A - Med Ordered
[2021-09-29 15:35] VITALS: TEMP 37.7
[2021-09-29 17:03] LABS: Glucose, Whole Blood 244 mg/dL (60-115)
--- NOTE | 2021-09-29 17:28 | PM.CNNEP ---
History of Present Illness Reason for Consult Consult date: 09/29/21 Reason for consult: Acidosis Requesting physician: Graciela Carson Chief Complaint Chief complaint: Foot Pain History of Present Illness Narrative: Ms. Mikal Canela is a 76-year-old female with past medical history of PVD, HTN, diabetes, hypothyroidism who presented with right foot pain and swelling. She was found to have dry gangrene and is now s/p Right BKA. He hospital course is now complicated by a drop in serum bicarb which started as non-gap on 09/28/2021 and developed into AG by 09/29/2021. She has normal renal function otherwise. On my assessment the patient denies pain. She appears well, satting well on room air. No respiratory distress noted. Review of Systems Review of Systems Yes all other systems are reviewed and are negative Constitutional: Reports no additional constitutional complaints Cardiovascular: Denies chest pain, Denies chest pain at rest, Denies chest pain with activity and Denies pedal edema Respiratory: Denies cough Gastrointestinal: Denies abdominal pain PMFSH Past Medical History Medical History Anemia in chronic kidney disease Anxiety Asthma Depression Diabetes mellitus Diabetic neuropathy Dysphagia Fibromyalgia GERD (gastroesophageal reflux disease) Hiatal hernia HTN (hypertension) Hx of gastritis Hypercholesterolemia Hypothyroidism IBS (irritable bowel syndrome) Mini stroke Mononeuritis On beta jeannie at home Osteoarthritis Osteoporosis PAD (peripheral artery disease) Vitamin B 12 deficiency Family History Family History Sister Diabetes Family history: reviewed and not pertinent Surgical History Surgical History H/O local excision of skin lesion History of ankle surgery History of back surgery History of esophagogastroduodenoscopy (EGD) History of open reduction and internal fixation (ORIF) procedure Hx of hysterectomy Social History Social History Household Members: Family Housing: House Do you presently have visiting nurse or other home services: Yes Unable to assess alcohol history related to: Unknown Alcohol intake: never Patient Tobacco Use Status: Former Tobacco user Quit Date: >20 yr ago e-Cigarette/Vaping Use: Never Used Second Hand Smoke Exposure: No Use of substances other than those prescribed or required for medical reasons: No Currently Displaying Signs/Symptoms of Drug Intoxication Withdrawal: No Have you been hit, kicked, punched, or otherwise hurt by someone within the past year? 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 Meds Allergies Allergy/AdvReac Type Severity Reaction Status Date / Time ibuprofen [From MOTRIN] Allergy Unknown UPSET Verified 09/24/21 13:23 STOMACH Active Medications: Current Medications Acetaminophen (Acetaminophen 325 Mg Tablet) 650 mg PO Q6H PRN PRN Reason: Pain, Mild (Pain Scale 1-3) Last Admin: 09/27/21 08:35 Dose: 650 mg Documented by: Aspirin (Aspirin Enteric Coated 81 Mg Tablet.) 81 mg PO DAILY [facility] Last Admin: 09/29/21 09:36 Dose: Not Given Documented by: Atorvastatin Calcium (Atorvastatin Calcium 80 Mg Tablet) 80 mg PO DAILY [facility] Last Admin: 09/29/21 09:36 Dose: Not Given Documented by: Diltiazem HCl (Diltiazem Hcl Cd 180 Mg Cap.Er.24h) 360 mg PO DAILY [facility]; Protocol Last Admin: 09/29/21 09:36 Dose: Not Given Documented by: Fentanyl (Fentanyl Citrate/Pf 100 Mcg/2 Ml Vial) 25 mcg IVPUSH Q5M PRN; Protocol PRN Reason: Pain, Moderate (Pain Scale 4-6 Last Admin: 09/28/21 14:18 Dose: 25 mcg Documented by: Ferrous Sulfate (Ferrous Sulfate 324 Mg Tablet.) 324 mg PO BIDWM [facility] Last Admin: 09/29/21 08:52 Dose: Not Given Documented by: Heparin Sodium (Porcine) (Heparin Sodium,Porcine 5,000 Unit/Ml Vial) 5,000 unit SUBCUT Q8H [facility] Last Admin: 09/29/21 10:36 Dose: Not Given Documented by: Hydrochlorothiazide (Hydrochlorothiazide 12.5 Mg Tablet) 12.5 mg PO DAILY [facility]; Protocol Last Admin: 09/29/21 09:36 Dose: Not Given Documented by: Piperacillin Sod/Tazobactam (Sod 3.375 gm/ Sodium Chloride) 50 mls @ 100 mls/hr IV Q6H [facility] Last Infusion: 09/29/21 11:42 Dose: Infused Documented by: Vancomycin HCl 1,000 mg/ (Sodium Chloride) 270 mls @ 270 mls/hr IV Q24H [facility] Last Infusion: 09/28/21 22:56 Dose: Infused Documented by: Sodium Bicarbonate 150 meq/ (Dextrose) 1,000 mls @ 100 mls/hr IV .Q10H [facility] Stop: 09/30/21 08:29 Last Admin: 09/29/21 14:03 Dose: 100 mls/hr Documented by: Insulin Glargine (Insulin Glargine,Hum.Rec.Anlog 100 Unit/Ml 10 Ml Vial) 15 unit SUBCUT BEDTIME [facility] Last Admin: 09/28/21 20:42 Dose: Not Given Documented by: Insulin Human Lispro (Insulin Lispro 100 Unit/Ml 3 Ml Vial) 0 unit SUBCUT QIDACHS [facility]; Protocol Last Admin: 09/29/21 11:25 Dose: 2 unit Documented by: Levothyroxine Sodium (Levothyroxine Sodium 100 Mcg Tablet) 100 mcg PO DAILY@0600 [facility] Last Admin: 09/29/21 05:32 Dose: Not Given Documented by: Lisinopril (Lisinopril 40 Mg Tablet) 40 mg PO DAILY [facility]; Protocol Last Admin: 09/29/21 09:36 Dose: Not Given Documented by: Metoprolol Succinate (Metoprolol Succinate Er 100 Mg Tab.Er.24h) 100 mg PO DAILY [facility]; Protocol Last Admin: 09/29/21 09:36 Dose: Not Given Documented by: Morphine Sulfate (Morphine Sulfate 4 Mg/Ml Cartridge) 3 mg IVPUSH Q4H PRN; Protocol PRN Reason: Pain, Severe (Pain Scale 7-10) Last Admin: 09/29/21 09:25 Dose: 3 mg Documented by: Omeprazole (Omeprazole 20 Mg Capsule.Dr) 20 mg PO DAILY@0630 [facility] Last Admin: 09/29/21 05:32 Dose: Not Given Documented by: Ondansetron HCl (Ondansetron Hcl 4 Mg/2 Ml Vial) 4 mg IVPUSH Q8H PRN PRN Reason: Nausea and Vomiting Last Admin: 09/29/21 09:26 Dose: 4 mg Documented by: Oxycodone HCl (Oxycodone Hcl Immed Release 5 Mg Tablet) 5 mg PO BID PRN PRN Reason: Pain, Severe (Pain Scale 7-10) Last Admin: 09/27/21 23:51 Dose: 5 mg Documented by: Pharmacy Consult (Consult Rx Vancomycin Dosing) 1 each MISCELLANE DAILY PRN PRN Reason: Consult order Sodium Bicarbonate (Sodium Bicarbonate 650 Mg Tablet) 650 mg PO BID [facility] Sodium Chloride (0.9 % Sodium Chloride Flush 3 Ml Syringe) 3 ml IVFLUSH QSHIFT [facility] Last Admin: 09/29/21 15:29 Dose: Not Given Documented by: Trazodone HCl (Trazodone Hcl 50 Mg Tablet) 50 mg PO BEDTIME [facility] Last Admin: 09/28/21 20:41 Dose: 50 mg Documented by: Home Medications Medication Instructions Recorded Confirmed Last Taken Type aspirin 81 mg tablet,delayed 81 mg PO DAILY 05/23/20 09/24/21 08/11/21 History release citalopram 20 mg tablet 20 mg PO DAILY 05/23/20 09/24/21 08/11/21 History diltiazem HCl 360 mg capsule,24 360 mg PO DAILY 05/23/20 09/24/21 08/11/21 History hr,extended release glipizide 10 mg tablet, extended 10 mg PO DAILY 05/23/20 09/24/21 08/11/21 History release 24 hr hydrochlorothiazide 12.5 mg capsule 12.5 mg PO DAILY 05/23/20 09/24/21 08/11/21 History levothyroxine 100 mcg tablet 100 mcg PO DAILY 05/23/20 09/24/21 08/11/21 History lisinopril 40 mg tablet 40 mg PO DAILY 05/23/20 09/24/21 08/11/21 History metformin 500 mg tablet,extended 1,000 mg PO BID 05/23/20 09/24/21 08/11/21 History release 24 hr metoprolol succinate 100 mg 100 mg PO DAILY 05/23/20 09/24/21 08/11/21 History tablet,extended release 24 hr pregabalin 200 mg capsule 200 mg PO BEDTIME 05/23/20 09/24/21 Unknown History sitagliptin 100 mg tablet 100 mg PO DAILY 05/23/20 09/24/21 08/11/21 History trazodone 50 mg tablet 50 mg PO BEDTIME 05/23/20 09/24/21 08/11/21 History atorvastatin 80 mg tablet 1 tab PO DAILY 08/12/21 09/24/21 08/11/21 History denosumab 60 mg/mL subcutaneous 60 mg SUBCUT [id number] 08/12/21 09/24/21 Unknown History syringe (Prolia) insulin glargine 100 unit/mL (3 15 unit SUBCUT BEDTIME 08/12/21 09/24/21 Unknown History mL) subcutaneous pen (Lantus Solostar U-100 Insulin) melatonin 5 mg tablet 10 mg PO BEDTIME 08/12/21 09/24/21 08/11/21 History meloxicam 7.5 mg tablet 1 tab PO DAILY 08/12/21 09/24/21 Unknown History pregabalin 100 mg capsule 100 mg PO DAILY 08/12/21 09/24/21 Unknown History omeprazole 20 mg capsule,delayed 20 mg PO DAILY 09/24/21 09/24/21 Unknown History release oxycodone 5 mg tablet 1 tab PO BID PRN 09/24/21 09/24/21 Unknown History Physical Exam Vital Signs: Last Vital Signs Temp 99.8 F 09/29/21 15:35 Pulse 97 09/29/21 12:00 Resp 20 09/29/21 11:00 BP 162/72 H 09/29/21 12:00 Pulse Ox 98 09/29/21 12:18 BMI result Body Mass Index 24.5 Const General: cooperative, healthy appearing and comfortable Orientation/consciousness: oriented to person, oriented to place and oriented to time HENMT Mouth: Normal oral and palatal mucosa present Resp Effort & Inspection: normal respiratory effort Auscultation: clear to auscultation bilaterally and no crackles Cardio Rate: regular rate Rhythm: regular rhythm GI Palpation (GI): Soft to palpation and nontender Neuro General: oriented to person, oriented to place and oriented to time Extrem General: No clubbing, No cyanosis and No edema Results Lab Results Result Diagrams: 09/29/21 08:15 09/29/21 12:02 Lab results: Chemistry 09/27/21 09/28/21 09/28/21 14:57 06:18 06:18 Sodium 140 Potassium 3.9 Carbon Dioxide 18 L BUN 8 L Creatinine 0.79 Cancelled 0.75 Calcium 8.0 L D 09/29/21 09/29/21 08:14 12:02 Sodium 142 144 Potassium 3.5 3.4 Carbon Dioxide 15 L 17 L BUN 7 L 7 L Creatinine 0.85 0.92 Calcium 7.9 L 8.1 L Hematology 09/29/21 08:15 WBC 30.4 H* Hgb 8.4 L Plt Count 641 H Assessment and Plan (1) Metabolic acidosis: Status: Acute (2) Sepsis: Status: Acute (3) HTN (hypertension): Status: Acute (4) Respiratory alkalosis: Status: Acute Plan Ms. Canela has a bicarbonate drop that started 09/28/2021 with AG 19 and Bicarb 18meq/L. Today this progressed to AG 22 and Bicarb 15meq/L. Anion gap work up included a normal lactate and a CK level lof 838. Otherwise a VBG showed 7.41/24/51/15 The patient likely has some component of Respiratoty Alkalosis. The Normal pH on VBG points more towards a respiratory alklasis and the bicarb drop to 15 appears to be compensatory. Assuming a chronic respiratory Alkalosis (about 24 hours) the drop of CO2 from 40 to 24, you should expect a drop in Bicarb by about 10meq/L, and so the bicarb on VBG is 15 (from 24). The Anion Gap can occur with Resp Alkalosis. CJASN Aug 2006, 21 162-174. Still there could be some other process causing anion gap. Perhaps she is so tachypneic she is raising lactic acid? Or perhaps she has some Compartment with high CK levels to raise anion gap. Plan: - I have taken the liberty to stop NaBicarb pills as this is primarily resp acidosis - Ok to c/w NaBicarb IVF (only 2 liters and order will drop off). IVF will help with CK elimination in urine - Work up the Tachypnea (?PE ?Pain ?Anxiety) - Trend the VBG daily - full renal panel daily Thank you for consulting MALINA Godoy I am on [employer]. Procedures Date of Service Date of Service: 09/29/21
[2021-09-29 18:49] LABS: Vancomycin Trough 12.5 mcg/mL (10.0-20.0)
--- NOTE | 2021-09-29 18:54 | PHA.PROG ---
Admission Date/Time: September 24, 2021 17:42 Indication: Indication: Sepsis (resolved) - Diabetic right foot infection Weight in k.7 kg Adjusted body weight in K.5 KG [place] body weight in K.4 KG Obesity Dosing Indication % IBW:119% Serum Creatinine - Last 168 Hours 09/24/21 09/25/21 09/26/21 15:06 07:26 06:37 Creatinine 0.83 0.75 0.86 09/26/21 09/27/21 09/28/21 15:02 14:57 06:18 Creatinine 0.81 0.79 Cancelled 09/28/21 09/29/21 09/29/21 06:18 08:14 12:02 Creatinine 0.75 0.85 0.92 Estimated CrCl and GFR - Last 168 Hours 09/24/21 09/25/21 09/26/21 15:06 07:26 06:37 Estim Creat Clear Calc 47.7 52.8 46.0 Estimated GFR > 60 > 60 > 60 09/26/21 09/27/21 09/28/21 15:02 14:57 06:18 Estim Creat Clear Calc 48.9 50.1 Cancelled Estimated GFR > 60 > 60 Cancelled 09/28/21 09/29/21 09/29/21 06:18 08:14 12:02 Estim Creat Clear Calc 52.8 46.5 43.0 Estimated GFR > 60 > 60 59 Vancomycin Loading Dose: 09/24: 750 mg @ 1744 + 500 mg @ 2209 Current Vancomycin Dosing Regimen: 1000 mg Q24H Vancomycin Trough 12.5 mcg/mL (10.0-20.0) 09/29/21 18:12 Pharmacist Comments on Vancomycin Plan: Continue same regimen Trough is at therapeutic levels Will drawn another trough tomorrow to confirm patient is at steady state SCr is slowly increasing. Pharmacy will continue to monitor renal function daily Jenifer Rojas PharmD Vancomycin dosing will take advantage of [employer] as a clinical decision support tool that uses Bayesian modeling to calculate individual patient's pharmacokinetic parameters and forecast the patient's drug concentration time course with the target goal AUC 24 range of 400 - 600 mg/L/hr.
[2021-09-29 20:04] LABS: Glucose, Whole Blood 211 mg/dL (60-115)
[2021-09-29] MEDS: vancomycin HCL 1,000 MG in 0.9 % Sodium Chloride 250 ML 270 MG IV (20:16)
[2021-09-29] MEDS: Insulin Glargine,Hum.rec.anlog 100 UNIT/ML 10 ML VIAL 15 UNIT SUBCUT (20:17)
[2021-09-29] MEDS: 0.9 % Sodium Chloride Flush 3 ML SYRINGE IVFLUSH (22:46)
[2021-09-30] VITALS (8 sets, daily range): BP systolic 122–191; BP diastolic 60–87; PULSE 83–124; RESP 16–20; TEMP 36–36.9; O2SAT 89–100
[2021-09-30] MEDS: Sodium Bicarbonate 8.4% 150 MEQ in Dextrose 5 % 850 ML 100 MEQ IV (00:19)
[2021-09-30] MEDS: Heparin Sodium,Porcine 5,000 UNIT/ML VIAL 5000 UNIT SUBCUT ×3 (01:45→18:49)
[2021-09-30] MEDS: Piperacillin Sodium/Tazobactam 3.375 GM in 0.9 % Sodium Chloride 50 ML IV (05:02)
[2021-09-30 07:24] LABS: Glucose, Whole Blood 233 mg/dL (60-115)
[2021-09-30] MEDS: Insulin Lispro 100 UNIT/ML 3 ML VIAL SUBCUT (07:45)
[2021-09-30] MEDS: 0.9 % Sodium Chloride Flush 3 ML SYRINGE IVFLUSH ×3 (07:48→20:19)
[2021-09-30 08:30] LABS: Hematocrit 25.8 % (37.0-47.0); Mean Corpuscular Hemoglobin 24.8 pg (27.0-33.0); Mean Corpuscular Volume 79.9 fL (80.0-98.0); Mean Platelet Volume 9.4 fL (9.4-12.3); Platelet Count 665 X10*3/uL (160-400); Red Blood Count 3.23 X10*6/uL (4.20-5.50); Red Cell Distribution Width 17.8 % (11.0-16.0); White Blood Count 25.4 X10*3/uL (4.8-10.8)
[2021-09-30 08:51] LABS: Blood Urea Nitrogen 9 mg/dL (9-16); Calcium 7.6 mg/dL (8.4-10.2); Estimated Glomerular Filt Rate 33; Glucose Random 222 mg/dL (60-115)
[2021-09-30 08:52] LABS: Creatinine Clr Calc Pharmacy 26.2; Estimated Glomerular Filt Rate 34
[2021-09-30 09:15] LABS: Anion Gap 14 (12-20); Carbon Dioxide 33 mmol/L (22-29); Chloride 102 mmol/L (96-108); Potassium 2.6 mmol/L (3.3-5.1); Sodium 146 mmol/L (135-145)
--- NOTE | 2021-09-30 09:43 | HO.VASCPN ---
Subjective Subjective Date of Service: 09/30/21 Patient reports: no new complaints Interval history: 76-year-old female status post BKA. Appears to be doing relatively better today. Confusion is less. She appears less restless. Although noncommunicative she does not appear to be any pain. Physical Exam Vital Signs: Vital Signs: Last Vital Signs Temp 98.4 F 09/30/21 07:13 Pulse 114 H 09/30/21 07:13 Resp 20 09/30/21 07:13 BP 122/80 09/30/21 07:13 Pulse Ox 96 09/30/21 07:13 BMI result Body Mass Index 24.5 Const: General: cooperative, healthy appearing and no acute distress Orientation/consciousness: oriented to person, oriented to place and oriented to time HENMT: Head: Yes normal to inspection Neck: Carotids: no bruits Chest: Chest palpation & inspection: normal inspection of the chest Resp: Effort & Inspection: normal respiratory effort and able to speak in complete sentences Auscultation: clear to auscultation bilaterally Cardio: Rate: regular rate Heart sounds: S1 normal heart sound present and S2 normal heart sound present GI: Inspection: Yes normal to inspection Skin: Wounds: amputation site (Dressing clean dry intact) Neuro: General: oriented to person, oriented to place, oriented to time and CN's II-XI intact bilaterally Extrem: General: Yes normal to inspection, Yes full ROM and Yes no clubbing, cyanosis or edema Psych: Appearance: grossly normal and well kempt Speech and movement: Normal speech and movement present Affect: normal affect Progress Note: A&P Assessment and plan (1) PVD (peripheral vascular disease): Status: Acute Assessment and Plan: Patient is status post BKA. Will plan for dressing change for tomorrow. If patient is stable will plan for potential discharge. Hopefully her confusion continues to improve. We will continue to follow with you. Thank you for allowing us to assist in her care. Fall Risk Details Current Medications: Current Medications Acetaminophen (Acetaminophen 325 Mg Tablet) 650 mg PO Q6H PRN PRN Reason: Pain, Mild (Pain Scale 1-3) Last Admin: 09/27/21 08:35 Dose: 650 mg Documented by: Aspirin (Aspirin Enteric Coated 81 Mg Tablet.) 81 mg PO DAILY [facility] Last Admin: 09/29/21 09:36 Dose: Not Given Documented by: Atorvastatin Calcium (Atorvastatin Calcium 80 Mg Tablet) 80 mg PO DAILY [facility] Last Admin: 09/29/21 09:36 Dose: Not Given Documented by: Diltiazem HCl (Diltiazem Hcl Cd 180 Mg Cap.Er.24h) 360 mg PO DAILY [facility]; Protocol Last Admin: 09/29/21 09:36 Dose: Not Given Documented by: Fentanyl (Fentanyl Citrate/Pf 100 Mcg/2 Ml Vial) 25 mcg IVPUSH Q5M PRN; Protocol PRN Reason: Pain, Moderate (Pain Scale 4-6 Last Admin: 09/28/21 14:18 Dose: 25 mcg Documented by: Ferrous Sulfate (Ferrous Sulfate 324 Mg Tablet.) 324 mg PO BIDWM [facility] Last Admin: 09/29/21 17:31 Dose: Not Given Documented by: Heparin Sodium (Porcine) (Heparin Sodium,Porcine 5,000 Unit/Ml Vial) 5,000 unit SUBCUT Q8H [facility] Last Admin: 09/30/21 01:45 Dose: 5,000 unit Documented by: Hydrochlorothiazide (Hydrochlorothiazide 12.5 Mg Tablet) 12.5 mg PO DAILY [facility]; Protocol Last Admin: 09/29/21 09:36 Dose: Not Given Documented by: Insulin Glargine (Insulin Glargine,Hum.Rec.Anlog 100 Unit/Ml 10 Ml Vial) 15 unit SUBCUT BEDTIME [facility] Last Admin: 09/29/21 20:17 Dose: 15 unit Documented by: Insulin Human Lispro (Insulin Lispro 100 Unit/Ml 3 Ml Vial) 0 unit SUBCUT QIDACHS [facility]; Protocol Last Admin: 09/30/21 07:45 Dose: 4 unit Documented by: Levothyroxine Sodium (Levothyroxine Sodium 100 Mcg Tablet) 100 mcg PO DAILY@0600 [facility] Last Admin: 09/30/21 05:03 Dose: Not Given Documented by: Metoprolol Succinate (Metoprolol Succinate Er 100 Mg Tab.Er.24h) 100 mg PO DAILY [facility]; Protocol Last Admin: 09/29/21 09:36 Dose: Not Given Documented by: Morphine Sulfate (Morphine Sulfate 4 Mg/Ml Cartridge) 3 mg IVPUSH Q4H PRN; Protocol PRN Reason: Pain, Severe (Pain Scale 7-10) Last Admin: 09/29/21 17:19 Dose: 3 mg Documented by: Omeprazole (Omeprazole 20 Mg Capsule.) 20 mg PO DAILY@0630 [facility] Last Admin: 09/30/21 05:04 Dose: Not Given Documented by: Ondansetron HCl (Ondansetron Hcl 4 Mg/2 Ml Vial) 4 mg IVPUSH Q8H PRN PRN Reason: Nausea and Vomiting Last Admin: 09/29/21 18:02 Dose: 4 mg Documented by: Pharmacy Consult (Consult Rx Vancomycin Dosing) 1 each MISCELLANE DAILY PRN PRN Reason: Consult order Sodium Chloride (0.9 % Sodium Chloride Flush 3 Ml Syringe) 3 ml IVFLUSH QSHIFT [facility] Last Admin: 09/30/21 07:48 Dose: 3 ml Documented by: Trazodone HCl (Trazodone Hcl 50 Mg Tablet) 50 mg PO BEDTIME [facility] Last Admin: 09/29/21 20:17 Dose: Not Given Documented by: Time Spent With Patient Time: Total time spent is greater than 50% in coordination of care (as documented) at patient's floor/unit and/or counseling patient: Time with patient: 15 - 24 minutes Procedures Date of Service Date of Service: 09/30/21 Quality Stroke Does the patient have a stroke diagnosis?: No VTE Prior VTE?: No VTE Risk Level:: Medical - moderate - high VTE Device Contraindication: Treatment Not Indicated VTE Drug Contraindication: N/A - Med Ordered
[2021-09-30] MEDS: ondansetron HCL 4 MG/2 ML VIAL IVPUSH (10:04)
--- NOTE | 2021-09-30 10:21 | PM.PNNEP ---
Subjective Subjective Date of Service: 09/30/21 Interval history: Events noted Physical Exam Vital Signs: Vital Signs: Last Vital Signs Temp 98.4 F 09/30/21 07:13 Pulse 114 H 09/30/21 07:13 Resp 20 09/30/21 07:13 BP 122/80 09/30/21 07:13 Pulse Ox 96 09/30/21 07:13 BMI result Body Mass Index 24.5 Const: General: cooperative, healthy appearing and comfortable Orientation/consciousness: oriented to person, oriented to place and oriented to time HENMT: Mouth: Normal oral and palatal mucosa present Resp: Effort & Inspection: normal respiratory effort Auscultation: clear to auscultation bilaterally and no crackles Cardio: Rate: regular rate Rhythm: regular rhythm GI: Palpation (GI): Soft to palpation and nontender Neuro: General: oriented to person, oriented to place and oriented to time Extrem: General: No clubbing, No cyanosis and No edema Objective Data Labs CBC & Chem 7: 09/30/21 08:12 09/30/21 08:12 Labs: Laboratory Results - last 24 hr 09/29/21 09/29/21 09/29/21 10:47 12:01 12:02 WBC RBC Hgb Hct MCV MCH MCHC RDW Plt Count MPV Absolute Nucleated RBC Nucleated RBC % (auto) VBG pH VBG pCO2 VBG pO2 VBG HCO3 VBG O2 Saturation VBG Base Excess Sodium 144 Potassium 3.4 Chloride 107 Carbon Dioxide 17 L Anion Gap 23 H BUN 7 L Creatinine 0.92 Estim Creat Clear Calc 43.0 Estimated GFR 59 POC Glucose 195 H Random Glucose 249 H Lactic Acid 1.6 Calcium 8.1 L Total Creatine Kinase 838 H Vancomycin Trough Acetone, Qual 09/29/21 09/29/21 09/29/21 12:02 12:07 16:31 WBC RBC Hgb Hct MCV MCH MCHC RDW Plt Count MPV Absolute Nucleated RBC Nucleated RBC % (auto) VBG pH 7.41 VBG pCO2 24 VBG pO2 51 VBG HCO3 15 L VBG O2 Saturation 79.0 VBG Base Excess -7.3 Sodium Potassium Chloride Carbon Dioxide Anion Gap BUN Creatinine Estim Creat Clear Calc Estimated GFR POC Glucose 244 H Random Glucose Lactic Acid Calcium Total Creatine Kinase Vancomycin Trough Acetone, Qual Small H 02/15/22 02/15/22 02/16/22 18:12 19:53 07:12 WBC RBC Hgb Hct MCV MCH MCHC RDW Plt Count MPV Absolute Nucleated RBC Nucleated RBC % (auto) VBG pH VBG pCO2 VBG pO2 VBG HCO3 VBG O2 Saturation VBG Base Excess Sodium Potassium Chloride Carbon Dioxide Anion Gap BUN Creatinine Estim Creat Clear Calc Estimated GFR POC Glucose 211 H 233 H Random Glucose Lactic Acid Calcium Total Creatine Kinase Vancomycin Trough 12.5 Acetone, Qual 09/30/21 09/30/21 09/30/21 08:12 08:12 08:12 WBC 25.4 H RBC 3.23 L Hgb 8.0 L Hct 25.8 L MCV 79.9 L D MCH 24.8 L MCHC 31.0 RDW 17.8 H Plt Count 665 H MPV 9.4 Absolute Nucleated RBC 0.000 Nucleated RBC % (auto) 0.0 VBG pH VBG pCO2 VBG pO2 VBG HCO3 VBG O2 Saturation VBG Base Excess Sodium 146 H Potassium 2.6 L D Chloride 102 Carbon Dioxide 33 H Anion Gap 14 BUN 9 Creatinine 1.52 H 1.51 H Estim Creat Clear Calc 26.0 26.2 Estimated GFR 33 34 POC Glucose Random Glucose 222 H Lactic Acid Calcium 7.6 L D Total Creatine Kinase 1202 H D Vancomycin Trough Acetone, Qual Microbiology Microbiology Results: Microbiology 09/24/21 15:19 Blood - Venous Blood Culture - Final No growth after 5 days. 09/24/21 15:06 Blood - Venous Blood Culture - Final No growth after 5 days. Procedures Date of Service Date of Service: 09/30/21 Assessment & Plan Assessment and plan (1) Sepsis: Status: Acute (2) HTN (hypertension): Status: Acute (3) Respiratory alkalosis: Status: Acute Plan Low Bicarb due to REspiratory alkalosis Bicarb is up to 33 after IVF NaHCOs DC IV bicarb Renal function stable Time Spent With Patient Time: Total time spent is greater than 50% in coordination of care (as documented) at patient's floor/unit and/or counseling patient: Time with patient: 15 - 24 minutes Progress Note: Quality Stroke Does the patient have a stroke diagnosis?: No
[2021-09-30] MEDS: Morphine Sulfate 4 MG/ML CARTRIDGE 3 MG IVPUSH ×2 (11:17→20:14)
[2021-09-30] MEDS: OLANZapine 10 MG VIAL 2.5 MG IM (12:24)
--- NOTE | 2021-09-30 12:45 | HO.PM.IMPN ---
Subjective Subjective Date of Service: 09/30/21 Interval History: cc: gangrene interval history: agitated Review of Systems Review of Systems: Yes Unobtainable due to mental condition Physical Exam Vital Signs: Vital Signs: Last Vital Signs Temp 97.4 F 09/30/21 10:57 Pulse 124 H 09/30/21 10:57 Resp 20 09/30/21 10:57 BP 154/87 H 09/30/21 10:57 Pulse Ox 100 09/30/21 12:00 BMI result Body Mass Index 24.5 General: AO X 1, no acute distress Resp: CTA bilateral, no accessory muscles used CVS: S1,S2,RRR GI: soft, non tender, non distended Neuro: 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 Objective Data Active Medications Acetaminophen (Acetaminophen 325 Mg Tablet) 650 mg PO Q6H PRN PRN Reason: Pain, Mild (Pain Scale 1-3) Last Admin: 09/27/21 08:35 Dose: 650 mg Documented by: COTEMA Aspirin (Aspirin Enteric Coated 81 Mg Tablet.) 81 mg PO DAILY [facility] Last Admin: 09/30/21 10:14 Dose: Not Given Documented by: DHARA Non-Admin Reason: Patient Refused Atorvastatin Calcium (Atorvastatin Calcium 80 Mg Tablet) 80 mg PO DAILY [facility] Last Admin: 09/30/21 10:14 Dose: Not Given Documented by: DHARA Non-Admin Reason: Patient Refused Diltiazem HCl (Diltiazem Hcl Cd 180 Mg Cap.Er.24h) 360 mg PO DAILY [facility]; Protocol Last Admin: 09/30/21 10:14 Dose: Not Given Documented by: DHARA Non-Admin Reason: Patient Refused Fentanyl (Fentanyl Citrate/Pf 100 Mcg/2 Ml Vial) 25 mcg IVPUSH Q5M PRN; Protocol PRN Reason: Pain, Moderate (Pain Scale 4-6 Last Admin: 09/28/21 14:18 Dose: 25 mcg Documented by: SAAD Ferrous Sulfate (Ferrous Sulfate 324 Mg Tablet.) 324 mg PO BIDWM [facility] Last Admin: 09/30/21 10:14 Dose: Not Given Documented by: DHARA Non-Admin Reason: Patient Refused Heparin Sodium (Porcine) (Heparin Sodium,Porcine 5,000 Unit/Ml Vial) 5,000 unit SUBCUT Q8H [facility] Last Admin: 09/30/21 09:39 Dose: 5,000 unit Documented by: DHARA Hydrochlorothiazide (Hydrochlorothiazide 12.5 Mg Tablet) 12.5 mg PO DAILY [facility]; Protocol Last Admin: 09/30/21 10:15 Dose: Not Given Documented by: DHARA Non-Admin Reason: Patient Refused Insulin Glargine (Insulin Glargine,Hum.Rec.Anlog 100 Unit/Ml 10 Ml Vial) 15 unit SUBCUT BEDTIME [facility] Last Admin: 09/29/21 20:17 Dose: 15 unit Documented by: KELSIE Insulin Human Lispro (Insulin Lispro 100 Unit/Ml 3 Ml Vial) 0 unit SUBCUT QIDACHS [facility]; Protocol Last Admin: 09/30/21 12:29 Dose: Not Given Documented by: DHARA Non-Admin Reason: pt refused meal Levothyroxine Sodium (Levothyroxine Sodium 100 Mcg Tablet) 100 mcg PO DAILY@0600 [facility] Last Admin: 09/30/21 05:03 Dose: Not Given Documented by: KELSIE Non-Admin Reason: Patient Refused Metoprolol Succinate (Metoprolol Succinate Er 100 Mg Tab.Er.24h) 100 mg PO DAILY [facility]; Protocol Last Admin: 09/30/21 10:15 Dose: Not Given Documented by: DHARA Non-Admin Reason: Patient Refused Morphine Sulfate (Morphine Sulfate 4 Mg/Ml Cartridge) 3 mg IVPUSH Q4H PRN; Protocol PRN Reason: Pain, Severe (Pain Scale 7-10) Last Admin: 09/30/21 11:17 Dose: 3 mg Documented by: DHARA Omeprazole (Omeprazole 20 Mg Capsule.Dr) 20 mg PO DAILY@0630 [facility] Last Admin: 09/30/21 05:04 Dose: Not Given Documented by: KELSIE Non-Admin Reason: Patient Refused Ondansetron HCl (Ondansetron Hcl 4 Mg/2 Ml Vial) 4 mg IVPUSH Q8H PRN PRN Reason: Nausea and Vomiting Last Admin: 09/30/21 10:04 Dose: 4 mg Documented by: DHARA Pharmacy Consult (Consult Rx Vancomycin Dosing) 1 each MISCELLANE DAILY PRN PRN Reason: Consult order Sodium Chloride (0.9 % Sodium Chloride Flush 3 Ml Syringe) 3 ml IVFLUSH QSHIFT [facility] Last Admin: 09/30/21 07:48 Dose: 3 ml Documented by: DHARA Trazodone HCl (Trazodone Hcl 50 Mg Tablet) 50 mg PO BEDTIME [facility] Last Admin: 09/29/21 20:17 Dose: Not Given Documented by: KELSIE Non-Admin Reason: Patient Refused Labs CBC & Chem 7: 09/30/21 08:12 09/30/21 08:12 Labs: Laboratory Results - last 24 hr 09/29/21 09/29/21 09/29/21 12:02 12:07 16:31 MCV MCH MCHC RDW Plt Count MPV Absolute Nucleated RBC Nucleated RBC % (auto) VBG pH 7.41 VBG pCO2 24 VBG pO2 51 VBG HCO3 15 L VBG O2 Saturation 79.0 VBG Base Excess -7.3 Anion Gap 23 H Estim Creat Clear Calc 43.0 Estimated GFR 59 POC Glucose 244 H Random Glucose 249 H Calcium 8.1 L Total Creatine Kinase 838 H Vancomycin Trough 09/29/21 09/29/21 09/30/21 18:12 19:53 07:12 MCV MCH MCHC RDW Plt Count MPV Absolute Nucleated RBC Nucleated RBC % (auto) VBG pH VBG pCO2 VBG pO2 VBG HCO3 VBG O2 Saturation VBG Base Excess Anion Gap Estim Creat Clear Calc Estimated GFR POC Glucose 211 H 233 H Random Glucose Calcium Total Creatine Kinase Vancomycin Trough 12.5 09/30/21 09/30/21 09/30/21 08:12 08:12 08:12 MCV 79.9 L D MCH 24.8 L MCHC 31.0 RDW 17.8 H Plt Count 665 H MPV 9.4 Absolute Nucleated RBC 0.000 Nucleated RBC % (auto) 0.0 VBG pH VBG pCO2 VBG pO2 VBG HCO3 VBG O2 Saturation VBG Base Excess Anion Gap 14 Estim Creat Clear Calc 26.0 26.2 Estimated GFR 33 34 POC Glucose Random Glucose 222 H Calcium 7.6 L D Total Creatine Kinase 1202 H D Vancomycin Trough Microbiology Microbiology Results: Microbiology 09/24/21 15:19 Blood Culture - Final Blood - Venous No growth after 5 days. 09/24/21 15:06 Blood Culture - Final Blood - Venous No growth after 5 days. Assessment and Plan (1) Dry gangrene: Status: Acute (2) Chronic foot ulcer: Status: Acute (3) Metabolic acidosis: Status: Acute (4) Leukocytosis: Status: Acute Plan A 76 years old lady with PMH of PVD, HTN, diabetes, hypothyroidism among others who presents to the hospital with right foot pain and swelling. Sepsis, resolved Secondary to right foot dry gangrene, post amputation BKA Pod 2 Negative Blood cultures dc antibiotics Anion gap Metabolic acidosis Bicarb increased to 33, dc iv bicarb mointor ELLEN dc lisinopril, monitor hypokalemia replace, monitor Type 2 diabetes Hold oral medications Insulin diabetic diet Hypertension continue Cardizem, lisinopril and metoprolol Neuropathy continue pregabalin PVD continue aspirin and atorvastatin DVT PPX Heparin Quality Stroke Does the patient have a stroke diagnosis?: No VTE Prior VTE?: No VTE Risk Level:: Medical - moderate - high VTE Device Contraindication: Treatment Not Indicated VTE Drug Contraindication: N/A - Med Ordered
[2021-09-30 13:37] LABS: Glucose, Whole Blood 108 mg/dL (60-115)
--- NOTE | 2021-09-30 15:17 | MHC.CM.PN ---
CCA is recommending STR r/t new BKA and Patient living on the 3rd floor and usually carried up the stairs by family.CM will follow.
[2021-09-30 16:38] LABS: Glucose, Whole Blood 96 mg/dL (60-115)
--- NOTE | 2021-09-30 17:41 | MHC.SL.SWA ---
Speech Pathologist Impression: Risk of Aspiration Oralpharyngeal Dysphagia Risk of Aspiration Due to: Reduced Cognition Dysphasia Diet Status: No Change Liquid Consistency and Strategies for Safe Swallow: Liquid Intake Recommendation: NPO Liquid Intake Strategies: Solid Food Consistency: Dietary Recommendations: NPO Additional Modifications to Solid Foods: Overt s/s of aspiration- Recommend continue NPO at this time. Elevate head of bed at least 30 degrees to reduce risk of microaspiration, perform daily oral care. PIZZA BAKER to re-evaluate tomorrow morning. Oral Medication Intake: NPO Supervision While Eating and Drinking for Safe Swallow: PO with PIZZA BAKER Swallowing Recommended Treatments: Compens. Strategy Educat. Recommendation for Speech: Inpatient Speech Therapy Comment: M-F Long Term Care Pharmacist Clinican/Clinical Fellow: No Supervisory Statement: I have reviewed and agree with the student/clinical fellow's documentation: N/A Speech Language Pathologist: Cordelia Rose M.A., CCC-PIZZA BAKER
[2021-09-30] MEDS: Potassium Chloride/H20 10 MEQ/100 ML PIGGYBACK 100 MEQ IV ×4 (18:20→22:30)
[2021-09-30 20:30] LABS: Glucose, Whole Blood 112 mg/dL (60-115)
[2021-10-01] VITALS (8 sets, daily range): BP systolic 128–188; BP diastolic 66–85; PULSE 110–125; RESP 16–18; TEMP 35.6–37.1; O2SAT 92–98
[2021-10-01] MEDS: Heparin Sodium,Porcine 5,000 UNIT/ML VIAL 5000 UNIT SUBCUT ×3 (03:03→18:24)
[2021-10-01] MEDS: Morphine Sulfate 4 MG/ML CARTRIDGE 3 MG IVPUSH ×2 (03:11→20:22)
[2021-10-01 06:51] LABS: Hematocrit 27.7 % (37.0-47.0); Hemoglobin 8.3 g/dl (12.0-16.0); Mean Corpuscular Hemoglobin 24.7 pg (27.0-33.0); Mean Corpuscular Volume 82.4 fL (80.0-98.0); Mean Platelet Volume 9.9 fL (9.4-12.3); Platelet Count 775 X10*3/uL (160-400); Red Blood Count 3.36 X10*6/uL (4.20-5.50); Red Cell Distribution Width 18.4 % (11.0-16.0); White Blood Count 28.7 X10*3/uL (4.8-10.8)
[2021-10-01 07:13] LABS: Anion Gap 21 (12-20); Blood Urea Nitrogen 13 mg/dL (9-16); Calcium 7.7 mg/dL (8.4-10.2); Carbon Dioxide 26 mmol/L (22-29); Chloride 106 mmol/L (96-108); Creatinine Clr Calc Pharmacy 15.3; Estimated Glomerular Filt Rate 18; Glucose Fasting 211 mg/dL (60-99); Sodium 149 mmol/L (135-145)
[2021-10-01 07:53] LABS: Glucose, Whole Blood 197 mg/dL (60-115)
--- NOTE | 2021-10-01 09:37 | HO.PM.IMPN ---
Subjective Subjective Date of Service: 10/01/21 Interval History: cc: gangrene interval history: agitated Review of Systems Review of Systems: Yes Unobtainable due to mental condition Physical Exam Vital Signs: Vital Signs: Last Vital Signs Temp 97.4 F 10/01/21 07:51 Pulse 120 H 10/01/21 07:51 Resp 18 10/01/21 07:51 BP 158/85 H 10/01/21 08:36 Pulse Ox 94 10/01/21 08:36 BMI result Body Mass Index 24.5 General: AO X 1, no acute distress Resp:? CTA bilateral, no accessory muscles used CVS: S1,S2,RRR GI: soft, non tender, non distended Neuro:? 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 Objective Data Active Medications Acetaminophen (Acetaminophen 325 Mg Tablet) 650 mg PO Q6H PRN PRN Reason: Pain, Mild (Pain Scale 1-3) Last Admin: 09/27/21 08:35 Dose: 650 mg Documented by: CECILIO Aspirin (Aspirin Enteric Coated 81 Mg Tablet.) 81 mg PO DAILY [facility] Last Admin: 09/30/21 10:14 Dose: Not Given Documented by: DHARA Non-Admin Reason: Patient Refused Atorvastatin Calcium (Atorvastatin Calcium 80 Mg Tablet) 80 mg PO DAILY [facility] Last Admin: 09/30/21 10:14 Dose: Not Given Documented by: DHARA Non-Admin Reason: Patient Refused Diltiazem HCl (Diltiazem Hcl Cd 180 Mg Cap.Er.24h) 360 mg PO DAILY [facility]; Protocol Last Admin: 09/30/21 10:14 Dose: Not Given Documented by: DHARA Non-Admin Reason: Patient Refused Ferrous Sulfate (Ferrous Sulfate 324 Mg Tablet.) 324 mg PO BIDWM [facility] Last Admin: 09/30/21 18:05 Dose: Not Given Documented by: DHARA Non-Admin Reason: NPO Heparin Sodium (Porcine) (Heparin Sodium,Porcine 5,000 Unit/Ml Vial) 5,000 unit SUBCUT Q8H [facility] Last Admin: 10/01/21 03:03 Dose: 5,000 unit Documented by: CAMILLA Dextrose/Sodium Chloride (D51/2ns) 1,000 mls @ 125 mls/hr IVCONT .Q8H [facility] Insulin Human Lispro (Insulin Lispro 100 Unit/Ml 3 Ml Vial) 0 unit SUBCUT QIDACHS [facility]; Protocol Last Admin: 10/01/21 07:30 Dose: Not Given Documented by: ROSALINDA Non-Admin Reason: NPO Levothyroxine Sodium (Levothyroxine Sodium 100 Mcg Tablet) 100 mcg PO DAILY@0600 [facility] Last Admin: 10/01/21 06:09 Dose: Not Given Documented by: CAMILLA Non-Admin Reason: NPO Metoprolol Succinate (Metoprolol Succinate Er 100 Mg Tab.Er.24h) 100 mg PO DAILY [facility]; Protocol Last Admin: 09/30/21 10:15 Dose: Not Given Documented by: DHARA Non-Admin Reason: Patient Refused Morphine Sulfate (Morphine Sulfate 4 Mg/Ml Cartridge) 3 mg IVPUSH Q4H PRN; Protocol PRN Reason: Pain, Severe (Pain Scale 7-10) Last Admin: 10/01/21 03:11 Dose: 3 mg Documented by: CAMILLA Omeprazole (Omeprazole 20 Mg Capsule.Dr) 20 mg PO DAILY@0630 [facility] Last Admin: 10/01/21 06:10 Dose: Not Given Documented by: CAMILLA Non-Admin Reason: NPO Ondansetron HCl (Ondansetron Hcl 4 Mg/2 Ml Vial) 4 mg IVPUSH Q8H PRN PRN Reason: Nausea and Vomiting Last Admin: 09/30/21 10:04 Dose: 4 mg Documented by: DHARA Pharmacy Consult (Consult Rx Vancomycin Dosing) 1 each MISCELLANE DAILY PRN PRN Reason: Consult order Sodium Chloride (0.9 % Sodium Chloride Flush 3 Ml Syringe) 3 ml IVFLUSH QSHIFT [facility] Last Admin: 09/30/21 20:19 Dose: 3 ml Documented by: CAMILLA Trazodone HCl (Trazodone Hcl 50 Mg Tablet) 50 mg PO BEDTIME [facility] Last Admin: 09/30/21 20:33 Dose: Not Given Documented by: CAMILLA Non-Admin Reason: time change Labs CBC & Chem 7: 10/01/21 06:34 10/01/21 06:34 Labs: Laboratory Results - last 24 hr 09/30/21 09/30/21 09/30/21 13:33 16:32 20:16 MCV MCH MCHC RDW Plt Count MPV Absolute Nucleated RBC Nucleated RBC % (auto) Anion Gap Estim Creat Clear Calc Estimated GFR POC Glucose 108 96 112 Fasting Glucose Calcium 10/01/21 10/01/21 10/01/21 06:34 06:34 07:49 MCV 82.4 MCH 24.7 L MCHC 30.0 L RDW 18.4 H Plt Count 775 H MPV 9.9 Absolute Nucleated RBC 0.000 Nucleated RBC % (auto) 0.0 Anion Gap 21 H Estim Creat Clear Calc 15.3 Estimated GFR 18 POC Glucose 197 H Fasting Glucose 211 H Calcium 7.7 L Assessment and Plan (1) Dry gangrene: Status: Acute (2) Chronic foot ulcer: Status: Acute (3) Metabolic acidosis: Status: Acute (4) Leukocytosis: Status: Acute Plan A 76 years old lady with PMH of PVD, HTN, diabetes, hypothyroidism among others who presents to the hospital with right foot pain and swelling. Sepsis, resolved Secondary to right foot dry gangrene, post amputation BKA Pod 3 Negative Blood cultures off antibiotics ELLEN, hypernatremia worsened dced lisinopril, will start on D51/2ns, monitor hypokalemia replaced dysphagia npo for now, follow up with FOOD SERVICE ASSISTANT Type 2 diabetes Hold oral medications Insulin Hypertension continue Cardizem, metoprolol Neuropathy continue pregabalin PVD continue aspirin and atorvastatin DVT PPX Heparin Quality Stroke Does the patient have a stroke diagnosis?: No VTE Prior VTE?: No VTE Risk Level:: Medical - moderate - high VTE Device Contraindication: Treatment Not Indicated VTE Drug Contraindication: N/A - Med Ordered
[2021-10-01] MEDS: 0.9 % Sodium Chloride Flush 3 ML SYRINGE IVFLUSH ×2 (11:06→20:22)
[2021-10-01] MEDS: Dextrose 5 % and 0.45 % NaCl 1,000 ML 125 ML IVCONT ×3 (11:12→23:47)
[2021-10-01 11:28] LABS: Glucose, Whole Blood 231 mg/dL (60-115)
--- NOTE | 2021-10-01 11:45 | MHC.SL.SWA ---
Speech Pathologist Impression: Risk of Aspiration Oralpharyngeal Dysphagia Risk of Aspiration Due to: Reduced Cognition Dysphasia Diet Status: UPGRADE Liquid Consistency and Strategies for Safe Swallow: Liquid Intake Recommendation: Thin Liquid Intake Strategies: Small Sips Solid Food Consistency: Dietary Recommendations: Grnd/Mech Altered (NDD2) Additional Modifications to Solid Foods: Oral Medication Intake: Crushed with Puree Compensatory Strategies and Precautions to be Taken for Safe Swallow: Sitting Upright (90 deg) Liquids from Cup Small Bites and Sips Alternate Liquids/Solids Oral Check Supervision While Eating and Drinking for Safe Swallow: Total Supervision (1:1) Foods to Avoid: Recommend full supervision during meals, w/monitor for signs of aspiration. Per , Pt was an ate independently w/o assistance at home, but current AMS may require more close assistance during meals. Swallowing Recommended Treatments: Compens. Strategy Educat. Recommendation for Speech: Inpatient Speech Therapy Comment: Pt was alert and interactive this morning, w/ present at bedside. Pt verbalized, but responses were not what was expected in the social context, and has difficulty following directions. Pt took tsps and cup sip of thin liquid (water), w some anterior escape of liquid when given by spoon, oral phase and pharyngeal phase wnl, w/ no clinical signs of aspiration noted. Pt took tsps of puree consistency, w/mild delay of oral phase, with tongue used to mash bolus, swallow trigger, laryngeal elevation wnl after oral transit of bolus. On soft solid (Clarence Cracker in puree), Pt masticated the solids, used tongue to mash bolus, w/timely pharyngeal phase of swallow, some oral residual which was cleared by oral wash (sip of liquid). Pt refused attempt of bite of sandwich, so unable to assess more advanced consistencies at this time. Recommend UPGRADE to Ground Mechanical/Altered (NDD2) w/ THIN liquids, Pills Crushed in Puree. Diet consistency recommendations sent via secure text to MD, Inpatient Nursing Aide, Dietary. Frequency/Duration: Date Range for Service Req: Timeline to reassess: Stereoptician Clinican/Clinical Fellow: No Supervisory Statement: I have reviewed and agree with the student/clinical fellow's documentation: N/A Speech Language Pathologist: Laurel De Luna M.A., CCC-BAG MENDER
[2021-10-01] MEDS: Insulin Lispro 100 UNIT/ML 3 ML VIAL SUBCUT ×3 (11:47→20:26)
--- NOTE | 2021-10-01 13:35 | HO.VASCPN ---
Subjective Subjective Date of Service: 10/01/21 Patient reports: no new complaints and feels better Interval history: 76-year-old female status post BKA. Doing relatively well. No interval issues. She appears to be less confused today. Son at bedside. Physical Exam Vital Signs: Vital Signs: Last Vital Signs Temp 98.7 F 10/01/21 11:17 Pulse 125 H 10/01/21 11:17 Resp 17 10/01/21 11:17 BP 135/67 10/01/21 11:17 Pulse Ox 95 10/01/21 11:41 BMI result Body Mass Index 24.5 Const: General: cooperative, healthy appearing and no acute distress Orientation/consciousness: oriented to person, oriented to place and oriented to time HENMT: Head: Yes normal to inspection Neck: Carotids: no bruits Chest: Chest palpation & inspection: normal inspection of the chest Resp: Effort & Inspection: normal respiratory effort and able to speak in complete sentences Auscultation: clear to auscultation bilaterally Cardio: Rate: regular rate Heart sounds: S1 normal heart sound present and S2 normal heart sound present GI: Inspection: Yes normal to inspection Skin: General skin exam: no rashes or lesions noted Wounds: amputation site (Dressing change- minimal ecchymosis at incision line) Neuro: General: oriented to person, oriented to place, oriented to time and CN's II-XI intact bilaterally Extrem: General: Yes normal to inspection, Yes full ROM and Yes no clubbing, cyanosis or edema Psych: Appearance: grossly normal and well kempt Speech and movement: Normal speech and movement present Affect: normal affect Progress Note: A&P Assessment and plan (1) Status post below-knee amputation: Status: Acute Assessment and Plan: In short patient is doing well status post BKA stump is healing well. Once her confusion improves she will require physical therapy as she is starting to contract that knee. She is stable from my perspective for discharge. She can follow up with me as an outpatient in approximately 2 weeks for suture and staple removal. Fall Risk Details Current Medications: Current Medications Acetaminophen (Acetaminophen 325 Mg Tablet) 650 mg PO Q6H PRN PRN Reason: Pain, Mild (Pain Scale 1-3) Last Admin: 09/27/21 08:35 Dose: 650 mg Documented by: Aspirin (Aspirin Enteric Coated 81 Mg Tablet.) 81 mg PO DAILY [facility] Last Admin: 10/01/21 11:13 Dose: Not Given Documented by: Atorvastatin Calcium (Atorvastatin Calcium 80 Mg Tablet) 80 mg PO DAILY [facility] B[facility]S AT [facility] Last Admin: 10/01/21 11:13 Dose: Not Given Documented by: Diltiazem HCl (Diltiazem Hcl Cd 180 Mg Cap.Er.24h) 360 mg PO DAILY [facility] 234 [facility]S AT [facility]; Protocol Last Admin: 10/01/21 11:13 Dose: Not Given Documented by: Ferrous Sulfate (Ferrous Sulfate 324 Mg Tablet.) 324 mg PO BIDWM [facility]S [facility]CLUDE 234 BEDS AT [facility] Last Admin: 10/01/21 11:13 Dose: Not Given Documented by: Heparin Sodium (Porcine) (Heparin Sodium,Porcine 5,000 Unit/Ml Vial) 5,000 unit SUBCUT Q8H [facility] 234 BEDS AT [facility] Last Admin: 10/01/21 11:18 Dose: 5,000 unit Documented by: Dextrose/Sodium Chloride (D51/2ns) 1,000 mls @ 125 mls/hr IVCONT .Q8H [facility] 234 BEDS AT [facility] Last Admin: 10/01/21 11:12 Dose: 125 mls/hr Documented by: Insulin Human Lispro (Insulin Lispro 100 Unit/Ml 3 Ml Vial) 0 unit SUBCUT QIDACHS [facility] 234 BEDS AT [facility]; Protocol Last Admin: 10/01/21 11:47 Dose: 4 unit Documented by: Levothyroxine Sodium (Levothyroxine Sodium 100 Mcg Tablet) 100 mcg PO DAILY@0600 [facility] 234 BEDS AT [facility] Last Admin: 10/01/21 06:09 Dose: Not Given Documented by: Metoprolol Succinate (Metoprolol Succinate Er 100 Mg Tab.Er.24h) 100 mg PO DAILY [facility] 234 BEDS AT [facility]; Protocol Last Admin: 10/01/21 11:13 Dose: Not Given Documented by: Morphine Sulfate (Morphine Sulfate 4 Mg/Ml Cartridge) 3 mg IVPUSH Q4H PRN; Protocol PRN Reason: Pain, Severe (Pain Scale 7-10) Last Admin: 10/01/21 03:11 Dose: 3 mg Documented by: Omeprazole (Omeprazole 20 Mg Capsule.) 20 mg PO DAILY@0630 [facility] 234 BEDS AT [facility] Last Admin: 10/01/21 06:10 Dose: Not Given Documented by: Ondansetron HCl (Ondansetron Hcl 4 Mg/2 Ml Vial) 4 mg IVPUSH Q8H PRN PRN Reason: Nausea and Vomiting Last Admin: 09/30/21 10:04 Dose: 4 mg Documented by: Pharmacy Consult (Consult Rx Vancomycin Dosing) 1 each MISCELLANE DAILY PRN PRN Reason: Consult order Sodium Chloride (0.9 % Sodium Chloride Flush 3 Ml Syringe) 3 ml IVFLUSH QSHIFT [facility] 234 BEDS AT [facility] Last Admin: 10/01/21 11:06 Dose: 3 ml Documented by: Trazodone HCl (Trazodone Hcl 50 Mg Tablet) 50 mg PO BEDTIME [facility] 234 BEDS AT [facility] Last Admin: 09/30/21 20:33 Dose: Not Given Documented by: Time Spent With Patient Time: Total time spent is greater than 50% in coordination of care (as documented) at patient's floor/unit and/or counseling patient: Time with patient: 15 - 24 minutes Procedures Date of Service Date of Service: 10/01/21 Quality Stroke Does the patient have a stroke diagnosis?: No VTE Prior VTE?: No VTE Risk Level:: Medical - moderate - high VTE Device Contraindication: Treatment Not Indicated VTE Drug Contraindication: N/A - Med Ordered
--- NOTE | 2021-10-01 15:09 | P.PNNP_ITS ---
Subjective Subjective Date of Service: 10/14/21 Interval history: Events noted Family at bedside Physical Exam Vital Signs: Vital Signs: Last Vital Signs Temp 98.7 F 10/01/21 11:17 Pulse 125 H 10/01/21 11:17 Resp 17 10/01/21 11:17 BP 135/67 10/01/21 11:17 Pulse Ox 95 10/01/21 11:41 BMI result Body Mass Index 24.5 Const: General: cooperative, healthy appearing and comfortable Or ientation/consciousness: oriented to person, oriented to place and oriented to time HENMT: Mouth: Normal oral and palatal mucosa present Resp: Effort & Inspection: normal respiratory effort Auscultation: clear to auscultation bilaterally and no crackles Cardio: Rate: regular rate Rhythm: regular rhythm GI: Palpation (GI): Soft to palpation and nontender Neuro: General: oriented to person, oriented to place and oriented to time Extrem: General: No clubbing, No cyanosis and No edema Objective Data Labs CBC & Chem 7: 10/06/21 04:08 10/06/21 04:08 Labs: Laboratory Results - last 24 hr 09/30/21 09/30/21 10/01/21 16:32 20:16 06:34 WBC 28.7 H RBC 3.36 L Hgb 8.3 L Hct 27.7 L MCV 82.4 MCH 24.7 L MCHC 30.0 L RDW 18.4 H Plt Count 775 H MPV 9.9 Absolute Nucleated RBC 0.000 Nucleated RBC % (auto) 0.0 Sodium Potassium Chloride Carbon Dioxide Anion Gap BUN Creatinine Estim Creat Clear Calc Estimated GFR POC Glucose 96 112 Fasting Glucose Calcium 10/01/21 10/01/21 10/01/21 06:34 07:49 11:20 WBC RBC Hgb Hct MCV MCH MCHC RDW Plt Count MPV Absolute Nucleated RBC Nucleated RBC % (auto) Sodium 149 H Potassium 4.0 D Chloride 106 Carbon Dioxide 26 Anion Gap 21 H BUN 13 Creatinine 2.58 H Estim Creat Clear Calc 15.3 Estimated GFR 18 POC Glucose 197 H 231 H Fasting Glucose 211 H Calcium 7.7 L Microbiology Microbiology Results: Microbiology 09/24/21 15:19 Blood - Venous Blood Culture - Final No growth after 5 days. 09/24/21 15:06 Blood - Venous Blood Culture - Final No growth after 5 days. Procedures Date of Service Date of Service: 10/01/21 Assessment & Plan Assessment and plan (1) Sepsis: Status: Acute (2) HTN (hypertension): Status: Acute (3) Respiratory alkalosis: Status: Acute Plan Low Bicarb due to REspiratory alkalosis Bicarb is up to 33 after IVF NaHCOs DC IV bicarb ELLEN DDX: Hypoperfusion from volume depletion ATN - multifactorial Other causes including obstruction /AGN /AiN need to be ruled out Hypernatremia Due to free water deficit Suggest Keep I > O with hypotonic fluids Check renal sonogram Urine for UA. , Pro: Cr, If creatinine does not improve in 24 hours, needs further serological work up Time Spent With Patient Time: Total time spent is greater than 50% in coordination of care (as documented) at patient's floor/unit and/or counseling patient: Time with patient: 15 - 24 minutes Progress Note: Quality Stroke Does the patient have a stroke diagnosis?: No
[2021-10-01 17:13] LABS: Glucose, Whole Blood 198 mg/dL (60-115)
[2021-10-01 20:33] LABS: Glucose, Whole Blood 247 mg/dL (60-115)
--- NOTE | 2021-10-01 23:00 | PM.EVENT ---
Event Note Date of Service: 10/01/21 Event Note: Urine retention: Patient is bladder scan showed greater than 999 cc of urine. Patient unable to void. Gardiner catheter. Urology follow-up.
[2021-10-02] VITALS (8 sets, daily range): BP systolic 121–159; BP diastolic 60–79; PULSE 82–109; RESP 16–20; TEMP 36.2–37.1; O2SAT 89–96
[2021-10-02] MEDS: Morphine Sulfate 4 MG/ML CARTRIDGE 3 MG IVPUSH ×3 (00:50→22:12)
[2021-10-02] MEDS: Heparin Sodium,Porcine 5,000 UNIT/ML VIAL 5000 UNIT SUBCUT ×3 (00:51→17:30)
[2021-10-02 06:41] LABS: Hematocrit 28.4 % (37.0-47.0); Mean Corpuscular HGB Conc 28.2 g/dl (31.0-35.0); Mean Corpuscular Hemoglobin 24.7 pg (27.0-33.0); Mean Corpuscular Volume 87.7 fL (80.0-98.0); Platelet Count 465 X10*3/uL (160-400); Red Blood Count 3.24 X10*6/uL (4.20-5.50); Red Cell Distribution Width 18.6 % (11.0-16.0); White Blood Count 17.8 X10*3/uL (4.8-10.8)
[2021-10-02 07:26] LABS: Anion Gap 16 (12-20); Blood Urea Nitrogen 15 mg/dL (9-16); Carbon Dioxide 25 mmol/L (22-29); Chloride 105 mmol/L (96-108); Creatinine Clr Calc Pharmacy 14.7; Estimated Glomerular Filt Rate 17; Glucose Fasting 305 mg/dL (60-99); Potassium 3.5 mmol/L (3.3-5.1); Sodium 142 mmol/L (135-145)
[2021-10-02 07:51] LABS: Glucose, Whole Blood 305 mg/dL (60-115)
[2021-10-02] MEDS: Ferrous Sulfate 324 MG TABLET.DR PO ×2 (08:21→17:30)
[2021-10-02] MEDS: Atorvastatin Calcium 80 MG TABLET PO (08:21)
[2021-10-02] MEDS: Dextrose 5 % and 0.45 % NaCl 1,000 ML 125 ML IVCONT (08:21)
[2021-10-02] MEDS: dilTIAZem HCL CD 180 MG CAP.ER.24H 360 MG PO (08:21)
[2021-10-02] MEDS: Metoprolol Succinate ER 100 MG TAB.ER.24H PO (08:22)
[2021-10-02] MEDS: Aspirin Enteric Coated 81 MG TABLET.DR PO (08:22)
[2021-10-02] MEDS: Insulin Lispro 100 UNIT/ML 3 ML VIAL SUBCUT ×2 (08:23→17:22)
--- NOTE | 2021-10-02 09:46 | HO.PM.IMPN ---
Subjective Subjective Date of Service: 10/02/21 Interval History: cc: gangrene interval history: agitated Review of Systems Review of Systems: Yes Unobtainable due to mental condition Physical Exam Vital Signs: Vital Signs: Last Vital Signs Temp 98.1 F 10/02/21 07:45 Pulse 103 H 10/02/21 07:45 Resp 18 10/02/21 07:45 BP 144/70 H 10/02/21 07:45 Pulse Ox 95 10/02/21 07:45 BMI result Body Mass Index 24.5 General: agitated Resp:? CTA bilateral, no accessory muscles used CVS: S1,S2,RRR GI: soft, non tender, non distended Neuro:? 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 Objective Data Active Medications Acetaminophen (Acetaminophen 325 Mg Tablet) 650 mg PO Q6H PRN PRN Reason: Pain, Mild (Pain Scale 1-3) Last Admin: 09/27/21 08:35 Dose: 650 mg Documented by: CECILIO Aspirin (Aspirin Enteric Coated 81 Mg Tablet.) 81 mg PO DAILY [facility] Last Admin: 10/02/21 08:22 Dose: 81 mg Documented by: FOZIA Atorvastatin Calcium (Atorvastatin Calcium 80 Mg Tablet) 80 mg PO DAILY [facility] Last Admin: 10/02/21 08:21 Dose: 80 mg Documented by: FOZIA Diltiazem HCl (Diltiazem Hcl Cd 180 Mg Cap.Er.24h) 360 mg PO DAILY [facility]; Protocol Last Admin: 10/02/21 08:21 Dose: 360 mg Documented by: FOZIA Ferrous Sulfate (Ferrous Sulfate 324 Mg Tablet.) 324 mg PO BIDWM [facility] Last Admin: 10/02/21 08:21 Dose: 324 mg Documented by: FOZIA Heparin Sodium (Porcine) (Heparin Sodium,Porcine 5,000 Unit/Ml Vial) 5,000 unit SUBCUT Q8H [facility] Last Admin: 10/02/21 08:24 Dose: 5,000 unit Documented by: FOZIA Dextrose/Sodium Chloride (D51/2ns) 1,000 mls @ 80 mls/hr IVCONT .[id number] [facility] Last Admin: 10/02/21 08:21 Dose: 125 mls/hr Documented by: FOZIA Insulin Human Lispro (Insulin Lispro 100 Unit/Ml 3 Ml Vial) 0 unit SUBCUT QIDACHS [facility]; Protocol Last Admin: 10/02/21 08:23 Dose: 8 unit Documented by: FOZIA Levothyroxine Sodium (Levothyroxine Sodium 100 Mcg Tablet) 100 mcg PO DAILY@0600 [facility] Last Admin: 10/02/21 05:49 Dose: Not Given Documented by: CAMILLA Non-Admin Reason: NPO Metoprolol Succinate (Metoprolol Succinate Er 100 Mg Tab.Er.24h) 100 mg PO DAILY [facility]; Protocol Last Admin: 10/02/21 08:22 Dose: 100 mg Documented by: FOZIA Morphine Sulfate (Morphine Sulfate 4 Mg/Ml Cartridge) 3 mg IVPUSH Q4H PRN; Protocol PRN Reason: Pain, Severe (Pain Scale 7-10) Last Admin: 10/02/21 08:52 Dose: 3 mg Documented by: FOZIA Omeprazole (Omeprazole 20 Mg Capsule.Dr) 20 mg PO DAILY@0630 [facility] Last Admin: 10/02/21 05:49 Dose: Not Given Documented by: CAMILLA Non-Admin Reason: NPO Ondansetron HCl (Ondansetron Hcl 4 Mg/2 Ml Vial) 4 mg IVPUSH Q8H PRN PRN Reason: Nausea and Vomiting Last Admin: 09/30/21 10:04 Dose: 4 mg Documented by: DHARA Sodium Chloride (0.9 % Sodium Chloride Flush 3 Ml Syringe) 3 ml IVFLUSH QSHIFT [facility] Last Admin: 10/02/21 08:22 Dose: Not Given Documented by: FOZIA Non-Admin Reason: IV Running Trazodone HCl (Trazodone Hcl 50 Mg Tablet) 50 mg PO BEDTIME [facility] Last Admin: 10/01/21 21:37 Dose: Not Given Documented by: CAMILLA Non-Admin Reason: NPO Labs CBC & Chem 7: 10/02/21 06:21 10/02/21 06:21 Labs: Laboratory Results - last 24 hr 10/01/21 10/01/21 10/01/21 11:20 17:03 20:22 MCV MCH MCHC RDW Plt Count MPV Absolute Nucleated RBC Nucleated RBC % (auto) Anion Gap Estim Creat Clear Calc Estimated GFR POC Glucose 231 H 198 H 247 H Fasting Glucose Calcium 10/02/21 10/02/21 10/02/21 06:21 06:21 07:47 MCV 87.7 D MCH 24.7 L MCHC 28.2 L RDW 18.6 H Plt Count 465 H D MPV 11.0 Absolute Nucleated RBC 0.000 Nucleated RBC % (auto) 0.0 Anion Gap 16 Estim Creat Clear Calc 14.7 Estimated GFR 17 POC Glucose 305 H Fasting Glucose 305 H Calcium 7.0 L D Assessment and Plan (1) Dry gangrene: Status: Acute (2) Chronic foot ulcer: Status: Acute (3) Metabolic acidosis: Status: Acute (4) Leukocytosis: Status: Acute Plan A 76 years old lady with PMH of PVD, HTN, diabetes, hypothyroidism among others who presents to the hospital with right foot pain and swelling. 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
--- NOTE | 2021-10-02 10:20 | PC.NURSE ---
Skin assessment completed. Patient has a right below the knee amp with xeroform and dressing. 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 Triad applied to all reddened areas and incontinent wrap between legs.
--- NOTE | 2021-10-02 10:40 | MHC.SLORD ---
Speech Language Pathology Order Status: Pt is refusing food items with staff but tolerating thin and ground when she does take bites and sips. Taking medications in puree.
[2021-10-02 11:28] LABS: Glucose, Whole Blood 163 mg/dL (60-115)
[2021-10-02 12:47] LABS: Myeloperoxidase Antibody <1.0 AI; Proteinase 3 PR3 Antibodies <1.0 AI
--- NOTE | 2021-10-02 13:10 | MHC.CM.PN ---
per rounds pt not ready for dc she is septic and has an acute kidney injury
--- NOTE | 2021-10-02 15:07 | P.PNNP_ITS ---
Subjective Subjective Date of Service: 10/02/21 Interval history: seen and examined events reviewed and noted no complaints Physical Exam 2 Vital Signs: Vital Signs: Last Vital Signs Temp 97.6 F 10/02/21 11:42 Pulse 99 10/02/21 11:42 Resp 19 10/02/21 11:42 BP 121/68 10/02/21 11:42 Pulse Ox 95 10/02/21 11:43 BMI result Body Mass Index 24.5 Const: General: no acute distress Neck: Neck: Yes supple Resp: Auscultation: diminished lung sounds Cardio: Heart sounds: S1 normal heart sound present and S2 normal heart sound present GI: Palpation (GI): Soft to palpation and nontender Extrem: General: No edema Objective Data Labs CBC & Chem 7: 10/02/21 06:21 10/02/21 06:21 Labs: Laboratory Results - last 24 hr 10/01/21 10/01/21 10/01/21 15:37 17:03 20:22 WBC RBC Hgb Hct MCV MCH MCHC RDW Plt Count MPV Absolute Nucleated RBC Nucleated RBC % (auto) Sodium Potassium Chloride Carbon Dioxide Anion Gap BUN Creatinine Estim Creat Clear Calc Estimated GFR POC Glucose 198 H 247 H Fasting Glucose Calcium Proteinase 3 (PR3) Ab <1.0 Myeloperoxidase Ab <1.0 10/02/21 10/02/21 10/02/21 06:21 06:21 07:47 WBC 17.8 H RBC 3.24 L Hgb 8.0 L Hct 28.4 L MCV 87.7 D MCH 24.7 L MCHC 28.2 L RDW 18.6 H Plt Count 465 H D MPV 11.0 Absolute Nucleated RBC 0.000 Nucleated RBC % (auto) 0.0 Sodium 142 Potassium 3.5 Chloride 105 Carbon Dioxide 25 Anion Gap 16 BUN 15 Creatinine 2.68 H Estim Creat Clear Calc 14.7 Estimated GFR 17 POC Glucose 305 H Fasting Glucose 305 H Calcium 7.0 L D Proteinase 3 (PR3) Ab Myeloperoxidase Ab 10/02/21 11:03 WBC RBC Hgb Hct MCV MCH MCHC RDW Plt Count MPV Absolute Nucleated RBC Nucleated RBC % (auto) Sodium Potassium Chloride Carbon Dioxide Anion Gap BUN Creatinine Estim Creat Clear Calc Estimated GFR POC Glucose 163 H Fasting Glucose Calcium Proteinase 3 (PR3) Ab Myeloperoxidase Ab Microbiology Microbiology Results: Microbiology 09/24/21 15:19 Blood - Venous Blood Culture - Final No growth after 5 days. 09/24/21 15:06 Blood - Venous Blood Culture - Final No growth after 5 days. Procedures Date of Service Date of Service: 10/02/21 Assessment & Plan Assessment and plan (1) ELLEN (acute kidney injury): Status: Acute Plan Scr up ELLEN due to compromised kidney perfusion and tubular stress renal US negative for obstruction no proteinuria and benign urine sediment REC IVF hold ACEi follow kidney function and electrolytes Time Spent With Patient Time: Total time spent is greater than 50% in coordination of care (as documented) at patient's floor/unit and/or counseling patient: Progress Note: Quality Stroke Does the patient have a stroke diagnosis?: No
[2021-10-02 16:21] LABS: Glucose, Whole Blood 272 mg/dL (60-115)
[2021-10-02] MEDS: 0.9 % Sodium Chloride Flush 3 ML SYRINGE IVFLUSH ×2 (17:30→20:32)
[2021-10-02 17:41] LABS: Complement C3 143 mg/dL (83-193)
[2021-10-02 17:41] LABS: Complement C3 140 mg/dL (83-193)
[2021-10-02 20:28] LABS: Glucose, Whole Blood 115 mg/dL (60-115)
[2021-10-02] MEDS: Acetaminophen 325 MG TABLET 650 MG PO (20:32)
[2021-10-02] MEDS: traZODone HCL 50 MG TABLET PO (20:32)
[2021-10-02] MEDS: Dextrose 5 % and 0.45 % NaCl 1,000 ML 80 ML IVCONT (20:40)
[2021-10-03] VITALS (8 sets, daily range): BP systolic 125–141; BP diastolic 60–61; PULSE 75–91; RESP 14–20; TEMP 36.7–37.3; O2SAT 95–99
[2021-10-03] MEDS: Morphine Sulfate 4 MG/ML CARTRIDGE 3 MG IVPUSH ×4 (02:00→20:22)
[2021-10-03] MEDS: Heparin Sodium,Porcine 5,000 UNIT/ML VIAL 5000 UNIT SUBCUT ×2 (02:03→09:12)
[2021-10-03] MEDS: Levothyroxine Sodium 100 MCG TABLET PO (06:06)
[2021-10-03] MEDS: Omeprazole 20 MG CAPSULE.DR PO (06:06)
[2021-10-03 06:57] LABS: Hematocrit 23.7 % (37.0-47.0); Hemoglobin 7.2 g/dl (12.0-16.0); Mean Corpuscular HGB Conc 30.4 g/dl (31.0-35.0); Mean Corpuscular Hemoglobin 25.1 pg (27.0-33.0); Mean Corpuscular Volume 82.6 fL (80.0-98.0); Mean Platelet Volume 10.2 fL (9.4-12.3); Platelet Count 540 X10*3/uL (160-400); Red Blood Count 2.87 X10*6/uL (4.20-5.50); White Blood Count 19.6 X10*3/uL (4.8-10.8)
[2021-10-03 07:15] LABS: Anion Gap 15 (12-20); Blood Urea Nitrogen 15 mg/dL (9-16); Calcium 6.3 mg/dL (8.4-10.2); Carbon Dioxide 23 mmol/L (22-29); Chloride 106 mmol/L (96-108); Creatinine Clr Calc Pharmacy 16.3; Estimated Glomerular Filt Rate 19; Glucose Fasting 232 mg/dL (60-99); Sodium 141 mmol/L (135-145)
[2021-10-03 07:33] LABS: Glucose, Whole Blood 236 mg/dL (60-115)
[2021-10-03] MEDS: Potassium Chloride ER 20 MEQ TAB.ER.PRT 40 MEQ PO (08:52)
[2021-10-03] MEDS: Dextrose 5 % and 0.45 % NaCl 1,000 ML 80 ML IVCONT ×2 (08:52→22:00)
[2021-10-03] MEDS: dilTIAZem HCL CD 180 MG CAP.ER.24H 360 MG PO (08:52)
[2021-10-03] MEDS: Aspirin Enteric Coated 81 MG TABLET.DR PO (08:53)
[2021-10-03] MEDS: Insulin Lispro 100 UNIT/ML 3 ML VIAL SUBCUT ×4 (08:53→20:23)
[2021-10-03] MEDS: Metoprolol Succinate ER 100 MG TAB.ER.24H PO (08:53)
[2021-10-03] MEDS: Ferrous Sulfate 324 MG TABLET.DR PO (08:54)
[2021-10-03] MEDS: 0.9 % Sodium Chloride Flush 3 ML SYRINGE IVFLUSH ×2 (08:54→20:23)
[2021-10-03] MEDS: Atorvastatin Calcium 80 MG TABLET PO (08:54)
[2021-10-03 11:24] LABS: Glucose, Whole Blood 267 mg/dL (60-115)
--- NOTE | 2021-10-03 13:07 | HO.PM.IMPN ---
Subjective Subjective Date of Service: 10/03/21 Interval History: cc: gangrene interval history: in pain Cardiovascular Cardiovascular: Reports no additional cardiovascular complaints Respiratory Respiratory: Reports no additional respiratory complaints Physical Exam Vital Signs: Vital Signs: Last Vital Signs Temp 98.5 F 10/03/21 11:45 Pulse 75 10/03/21 11:45 Resp 18 10/03/21 12:43 BP 125/60 10/03/21 11:45 Pulse Ox 99 10/03/21 11:45 BMI result Body Mass Index 24.5 General: agitated Resp:? CTA bilateral, no accessory muscles used CVS: S1,S2,RRR GI: soft, non tender, non distended Neuro:? 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 Objective Data Active Medications Acetaminophen (Acetaminophen 325 Mg Tablet) 650 mg PO Q6H PRN PRN Reason: Pain, Mild (Pain Scale 1-3) Last Admin: 10/02/21 20:32 Dose: 650 mg Documented by: TRINH Aspirin (Aspirin Enteric Coated 81 Mg Tablet.) 81 mg PO DAILY [facility] Last Admin: 10/03/21 08:53 Dose: 81 mg Documented by: SENIA Atorvastatin Calcium (Atorvastatin Calcium 80 Mg Tablet) 80 mg PO DAILY [facility] Last Admin: 10/03/21 08:54 Dose: 80 mg Documented by: SENIA Diltiazem HCl (Diltiazem Hcl Cd 180 Mg Cap.Er.24h) 360 mg PO DAILY [facility]; Protocol Last Admin: 10/03/21 08:52 Dose: 360 mg Documented by: SENIA Ferrous Sulfate (Ferrous Sulfate 324 Mg Tablet.) 324 mg PO BIDWM [facility] Last Admin: 10/03/21 08:54 Dose: 324 mg Documented by: SENIA Heparin Sodium (Porcine) (Heparin Sodium,Porcine 5,000 Unit/Ml Vial) 5,000 unit SUBCUT Q8H [facility] Last Admin: 10/03/21 09:12 Dose: 5,000 unit Documented by: SENIA Dextrose/Sodium Chloride (D51/2ns) 1,000 mls @ 80 mls/hr IVCONT .[id number] [facility] Last Admin: 10/03/21 08:52 Dose: 80 mls/hr Documented by: SENIA Insulin Human Lispro (Insulin Lispro 100 Unit/Ml 3 Ml Vial) 0 unit SUBCUT QIDACHS [facility]; Protocol Last Admin: 10/03/21 11:46 Dose: 6 unit Documented by: SENIA Levothyroxine Sodium (Levothyroxine Sodium 100 Mcg Tablet) 100 mcg PO DAILY@0600 [facility] Last Admin: 10/03/21 06:06 Dose: 100 mcg Documented by: JUMA Metoprolol Succinate (Metoprolol Succinate Er 100 Mg Tab.Er.24h) 100 mg PO DAILY [facility]; Protocol Last Admin: 10/03/21 08:53 Dose: 100 mg Documented by: SENIA Morphine Sulfate (Morphine Sulfate 4 Mg/Ml Cartridge) 3 mg IVPUSH Q4H PRN; Protocol PRN Reason: moderate pain Last Admin: 10/03/21 12:43 Dose: 3 mg Documented by: BRET Omeprazole (Omeprazole 20 Mg Capsule.) 20 mg PO DAILY@0630 [facility] Last Admin: 10/03/21 06:06 Dose: 20 mg Documented by: JUMA Ondansetron HCl (Ondansetron Hcl 4 Mg/2 Ml Vial) 4 mg IVPUSH Q8H PRN PRN Reason: Nausea and Vomiting Last Admin: 09/30/21 10:04 Dose: 4 mg Documented by: DHARA Sodium Chloride (0.9 % Sodium Chloride Flush 3 Ml Syringe) 3 ml IVFLUSH QSHIFT [facility] Last Admin: 10/03/21 08:54 Dose: 3 ml Documented by: SENIA Trazodone HCl (Trazodone Hcl 50 Mg Tablet) 50 mg PO BEDTIME [facility] Last Admin: 10/02/21 20:32 Dose: 50 mg Documented by: TRINH Labs CBC & Chem 7: 10/03/21 06:05 10/03/21 06:05 Labs: Laboratory Results - last 24 hr 10/01/21 10/01/21 10/02/21 11:43 15:37 15:49 MCV MCH MCHC RDW Plt Count MPV Absolute Nucleated RBC Nucleated RBC % (auto) Anion Gap Estim Creat Clear Calc Estimated GFR POC Glucose 272 H Fasting Glucose Calcium Complement C3 140 143 Complement C4 34 36 10/02/21 10/03/21 10/03/21 20:19 06:05 06:05 MCV 82.6 D MCH 25.1 L MCHC 30.4 L RDW 18.0 H Plt Count 540 H MPV 10.2 Absolute Nucleated RBC 0.000 Nucleated RBC % (auto) 0.0 Anion Gap 15 Estim Creat Clear Calc 16.3 Estimated GFR 19 POC Glucose 115 Fasting Glucose 232 H Calcium 6.3 L D Complement C3 Complement C4 10/03/21 10/03/21 07:12 11:17 MCV MCH MCHC RDW Plt Count MPV Absolute Nucleated RBC Nucleated RBC % (auto) Anion Gap Estim Creat Clear Calc Estimated GFR POC Glucose 236 H 267 H Fasting Glucose Calcium Complement C3 Complement C4 Assessment and Plan (1) Dry gangrene: Status: Acute (2) Chronic foot ulcer: Status: Acute (3) Metabolic acidosis: Status: Acute (4) Leukocytosis: Status: Acute Plan A 76 years old lady with PMH of PVD, HTN, diabetes, hypothyroidism among others who presents to the hospital with right foot pain and swelling. 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
--- NOTE | 2021-10-03 13:27 | PM.PNNEP ---
Subjective Subjective Date of Service: 10/03/21 Interval history: seen and examined discussed with medical attending Physical Exam Vital Signs: Vital Signs: Last Vital Signs Temp 98.5 F 10/03/21 11:45 Pulse 75 10/03/21 11:45 Resp 18 10/03/21 12:43 BP 125/60 10/03/21 11:45 Pulse Ox 96 10/03/21 12:00 BMI result Body Mass Index 24.5 Const: General: no acute distress Neck: Neck: Yes supple Resp: Auscultation: diminished lung sounds Cardio: Heart sounds: S1 normal heart sound present and S2 normal heart sound present GI: Palpation (GI): Soft to palpation and nontender Extrem: General: No edema Objective Data Labs CBC & Chem 7: 10/03/21 06:05 10/03/21 06:05 Labs: Laboratory Results - last 24 hr 10/01/21 10/01/21 10/02/21 11:43 15:37 15:49 WBC RBC Hgb Hct MCV MCH MCHC RDW Plt Count MPV Absolute Nucleated RBC Nucleated RBC % (auto) Sodium Potassium Chloride Carbon Dioxide Anion Gap BUN Creatinine Estim Creat Clear Calc Estimated GFR POC Glucose 272 H Fasting Glucose Calcium Complement C3 140 143 Complement C4 34 36 10/02/21 10/03/21 10/03/21 20:19 06:05 06:05 WBC 19.6 H RBC 2.87 L Hgb 7.2 L Hct 23.7 L MCV 82.6 D MCH 25.1 L MCHC 30.4 L RDW 18.0 H Plt Count 540 H MPV 10.2 Absolute Nucleated RBC 0.000 Nucleated RBC % (auto) 0.0 Sodium 141 Potassium 3.0 L Chloride 106 Carbon Dioxide 23 Anion Gap 15 BUN 15 Creatinine 2.42 H Estim Creat Clear Calc 16.3 Estimated GFR 19 POC Glucose 115 Fasting Glucose 232 H Calcium 6.3 L D Complement C3 Complement C4 10/03/21 10/03/21 07:12 11:17 WBC RBC Hgb Hct MCV MCH MCHC RDW Plt Count MPV Absolute Nucleated RBC Nucleated RBC % (auto) Sodium Potassium Chloride Carbon Dioxide Anion Gap BUN Creatinine Estim Creat Clear Calc Estimated GFR POC Glucose 236 H 267 H Fasting Glucose Calcium Complement C3 Complement C4 Microbiology Microbiology Results: Microbiology 09/24/21 15:19 Blood - Venous Blood Culture - Final No growth after 5 days. 09/24/21 15:06 Blood - Venous Blood Culture - Final No growth after 5 days. Procedures Date of Service Date of Service: 10/03/21 Assessment & Plan Assessment and plan (1) ELLEN (acute kidney injury): Status: Acute Plan Scr marginally better ELLEN due to compromised kidney perfusion and tubular stress renal US negative for obstruction no proteinuria and benign urine sediment REC continue IVF hold ACEi follow kidney function and electrolytes Time Spent With Patient Time: Total time spent is greater than 50% in coordination of care (as documented) at patient's floor/unit and/or counseling patient: Progress Note: Quality Stroke Does the patient have a stroke diagnosis?: No
[2021-10-03 17:21] LABS: Glucose, Whole Blood 164 mg/dL (60-115)
[2021-10-03 20:13] LABS: Glucose, Whole Blood 165 mg/dL (60-115)
[2021-10-03] MEDS: traZODone HCL 50 MG TABLET PO (20:22)
[2021-10-04] VITALS (13 sets, daily range): BP systolic 115–143; BP diastolic 56–94; PULSE 81–98; RESP 16–20; TEMP 36.7–37.4; O2SAT 95–99
[2021-10-04] MEDS: Morphine Sulfate 4 MG/ML CARTRIDGE 3 MG IVPUSH ×2 (01:58→12:07)
[2021-10-04] MEDS: Heparin Sodium,Porcine 5,000 UNIT/ML VIAL 5000 UNIT SUBCUT ×3 (01:58→17:13)
[2021-10-04 07:20] LABS: Hematocrit 22.5 % (37.0-47.0); Mean Corpuscular HGB Conc 30.2 g/dl (31.0-35.0); Mean Corpuscular Hemoglobin 24.5 pg (27.0-33.0); Mean Corpuscular Volume 81.2 fL (80.0-98.0); Mean Platelet Volume 9.7 fL (9.4-12.3); Platelet Count 597 X10*3/uL (160-400); Red Blood Count 2.77 X10*6/uL (4.20-5.50); Red Cell Distribution Width 17.8 % (11.0-16.0); White Blood Count 18.6 X10*3/uL (4.8-10.8)
[2021-10-04 07:46] LABS: Glucose, Whole Blood 241 mg/dL (60-115)
[2021-10-04 07:50] LABS: Anion Gap 13 (12-20); Blood Urea Nitrogen 15 mg/dL (9-16); Calcium 6.1 mg/dL (8.4-10.2); Carbon Dioxide 23 mmol/L (22-29); Chloride 108 mmol/L (96-108); Creatinine Clr Calc Pharmacy 16.2; Estimated Glomerular Filt Rate 19; Glucose Fasting 262 mg/dL (60-99); Potassium 3.9 mmol/L (3.3-5.1); Sodium 140 mmol/L (135-145)
[2021-10-04 07:51] LABS: Hemoglobin 6.8 g/dl (12.0-16.0)
[2021-10-04] MEDS: Insulin Lispro 100 UNIT/ML 3 ML VIAL SUBCUT ×2 (08:05→11:56)
[2021-10-04] MEDS: Aspirin Enteric Coated 81 MG TABLET.DR PO (08:06)
[2021-10-04] MEDS: dilTIAZem HCL CD 180 MG CAP.ER.24H 360 MG PO (08:06)
[2021-10-04] MEDS: Metoprolol Succinate ER 100 MG TAB.ER.24H PO (08:06)
[2021-10-04] MEDS: Ferrous Sulfate 324 MG TABLET.DR PO ×2 (08:06→17:13)
[2021-10-04] MEDS: 0.9 % Sodium Chloride Flush 3 ML SYRINGE IVFLUSH ×2 (08:06→12:08)
[2021-10-04] MEDS: Atorvastatin Calcium 80 MG TABLET PO (08:06)
--- NOTE | 2021-10-04 09:43 | P.PNIM_ITS ---
Subjective Subjective Date of Service: 10/04/21 Interval History: cc: gangrene interval history: no complaints Cardiovascular Cardiovascular: Reports no additional cardiovascular complaints Respiratory Respiratory: Reports no additional respiratory complaints Physical Exam Vital Signs: Vital Signs: Last Vital Signs Temp 99.3 F 10/04/21 07:16 Pulse 87 10/04/21 07:16 Resp 18 10/04/21 07:16 BP 119/58 L 10/04/21 07:16 Pulse Ox 96 10/04/21 07:16 BMI result Body Mass Index 24.5 General: agitated Resp:? CTA bilateral, no accessory muscles used CVS: S1,S2,RRR GI: soft, non tender, non distended Neuro:? 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 Objective Data Active Medications Acetaminophen (Acetaminophen 325 Mg Tablet) 650 mg PO Q6H PRN PRN Reason: Pain, Mild (Pain Scale 1-3) Last Admin: 10/02/21 20:32 Dose: 650 mg Documented by: TRINH Aspirin (Aspirin Enteric Coated 81 Mg Tablet.) 81 mg PO DAILY [facility] Last Admin: 10/04/21 08:06 Dose: 81 mg Documented by: TORITO Atorvastatin Calcium (Atorvastatin Calcium 80 Mg Tablet) 80 mg PO DAILY [facility] Last Admin: 10/04/21 08:06 Dose: 80 mg Documented by: TORITO Diltiazem HCl (Diltiazem Hcl Cd 180 Mg Cap.Er.24h) 360 mg PO DAILY [facility]; Protocol Last Admin: 10/04/21 08:06 Dose: 360 mg Documented by: TORITO Ferrous Sulfate (Ferrous Sulfate 324 Mg Tablet.) 324 mg PO BIDWM [facility] Last Admin: 10/04/21 08:06 Dose: 324 mg Documented by: TORITO Heparin Sodium (Porcine) (Heparin Sodium,Porcine 5,000 Unit/Ml Vial) 5,000 unit SUBCUT Q8H [facility] Last Admin: 10/04/21 08:07 Dose: 5,000 unit Documented by: TORITO Dextrose/Sodium Chloride (D51/2ns) 1,000 mls @ 80 mls/hr IVCONT .[id number] [facility] Last Admin: 10/03/21 22:00 Dose: 80 mls/hr Documented by: TRINH Insulin Human Lispro (Insulin Lispro 100 Unit/Ml 3 Ml Vial) 0 unit SUBCUT Q IDACHS [facility]; Protocol Last Admin: 10/04/21 08:05 Dose: 4 unit Documented by: TORITO Levothyroxine Sodium (Levothyroxine Sodium 100 Mcg Tablet) 100 mcg PO DAILY@0600 [facility] Last Admin: 10/04/21 06:21 Dose: Not Given Documented by: TRINH Non-Admin Reason: Patient Refused Metoprolol Succinate (Metoprolol Succinate Er 100 Mg Tab.Er.24h) 100 mg PO DAILY [facility]; Protocol Last Admin: 10/04/21 08:06 Dose: 100 mg Documented by: TORITO Morphine Sulfate (Morphine Sulfate 4 Mg/Ml Cartridge) 3 mg IVPUSH Q4H PRN; Protocol PRN Reason: moderate pain Last Admin: 10/04/21 01:58 Dose: 3 mg Documented by: TRINH Omeprazole (Omeprazole 20 Mg Capsule.Dr) 20 mg PO DAILY@0630 [facility] Last Admin: 10/04/21 06:21 Dose: Not Given Documented by: TRINH Non-Admin Reason: Patient Refused Ondansetron HCl (Ondansetron Hcl 4 Mg/2 Ml Vial) 4 mg IVPUSH Q8H PRN PRN Reason: Nausea and Vomiting Last Admin: 09/30/21 10:04 Dose: 4 mg Documented by: DHARA Sodium Chloride (0.9 % Sodium Chloride Flush 3 Ml Syringe) 3 ml IVFLUSH QSHIFT [facility] Last Admin: 10/04/21 08:06 Dose: 3 ml Documented by: TORITO Trazodone HCl (Trazodone Hcl 50 Mg Tablet) 50 mg PO BEDTIME [facility] Last Admin: 10/03/21 20:22 Dose: 50 mg Documented by: TRINH Labs CBC & Chem 7: 10/04/21 07:08 10/04/21 07:08 Labs: Laboratory Results - last 24 hr 10/03/21 10/03/21 10/03/21 11:17 16:52 20:05 MCV MCH MCHC RDW Plt Count MPV Absolute Nucleated RBC Nucleated RBC % (auto) Anion Gap Estim Creat Clear Calc Estimated GFR POC Glucose 267 H 164 H 165 H Fasting Glucose Calcium Crossmatch 02/10/04/21 10/04/21 07:08 07:08 07:18 MCV 81.2 MCH 24.5 L MCHC 30.2 L RDW 17.8 H Plt Count 597 H MPV 9.7 Absolute Nucleated RBC 0.000 Nucleated RBC % (auto) 0.0 Anion Gap 13 Estim Creat Clear Calc 16.2 Estimated GFR 19 POC Glucose 241 H Fasting Glucose 262 H Calcium 6.1 L Crossmatch 10/04/21 08:37 MCV MCH MCHC RDW Plt Count MPV Absolute Nucleated RBC Nucleated RBC % (auto) Anion Gap Estim Creat Clear Calc Estimated GFR POC Glucose Fasting Glucose Calcium Crossmatch See Detail Assessment and Plan (1) Dry gangrene: Status: Acute (2) Chronic foot ulcer: Status: Acute (3) Metabolic acidosis: Status: Acute (4) Leukocytosis: Status: Acute Plan A 76 years old lady with PMH of PVD, HTN, diabetes, hypothyroidism among others who presents to the hospital with right foot pain and swelling. 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
--- NOTE | 2021-10-04 09:54 | PM.PNNEP ---
Subjective Subjective Date of Service: 10/04/21 Interval history: seen an examined no complaints Physical Exam Vital Signs: Vital Signs: Last Vital Signs Temp 99.3 F 10/04/21 07:16 Pulse 87 10/04/21 07:16 Resp 18 10/04/21 07:16 BP 119/58 L 10/04/21 07:16 Pulse Ox 96 10/04/21 07:16 BMI result Body Mass Index 24.5 Const: General: no acute distress Neck: Neck: Yes supple Resp: Auscultation: diminished lung sounds Cardio: Heart sounds: S1 normal heart sound present and S2 normal heart sound present GI: Palpation (GI): Soft to palpation and nontender Extrem: General: No edema Objective Data Labs CBC & Chem 7: 10/04/21 07:08 10/04/21 07:08 Labs: Laboratory Results - last 24 hr 10/03/21 10/03/21 10/03/21 11:17 16:52 20:05 WBC RBC Hgb Hct MCV MCH MCHC RDW Plt Count MPV Absolute Nucleated RBC Nucleated RBC % (auto) Sodium Potassium Chloride Carbon Dioxide Anion Gap BUN Creatinine Estim Creat Clear Calc Estimated GFR POC Glucose 267 H 164 H 165 H Fasting Glucose Calcium Blood Type Antibody Screen Crossmatch 10/04/21 10/04/21 10/04/21 07:08 07:08 07:18 WBC 18.6 H RBC 2.77 L Hgb 6.8 L* Hct 22.5 L MCV 81.2 MCH 24.5 L MCHC 30.2 L RDW 17.8 H Plt Count 597 H MPV 9.7 Absolute Nucleated RBC 0.000 Nucleated RBC % (auto) 0.0 Sodium 140 Potassium 3.9 D Chloride 108 Carbon Dioxide 23 Anion Gap 13 BUN 15 Creatinine 2.43 H Estim Creat Clear Calc 16.2 Estimated GFR 19 POC Glucose 241 H Fasting Glucose 262 H Calcium 6.1 L Blood Type Antibody Screen Crossmatch 10/04/21 08:37 WBC RBC Hgb Hct MCV MCH MCHC RDW Plt Count MPV Absolute Nucleated RBC Nucleated RBC % (auto) Sodium Potassium Chloride Carbon Dioxide Anion Gap BUN Creatinine Estim Creat Clear Calc Estimated GFR POC Glucose Fasting Glucose Calcium Blood Type A Negative Antibody Screen NEGATIVE Crossmatch See Detail Microbiology Microbiology Results: Microbiology 09/24/21 15:19 Blood - Venous Blood Culture - Final No growth after 5 days. 09/24/21 15:06 Blood - Venous Blood Culture - Final No growth after 5 days. Procedures Date of Service Date of Service: 10/04/21 Assessment & Plan Assessment and plan (1) ELLEN (acute kidney injury): Status: Acute Plan kidney function stable ELLEN due to compromised kidney perfusion and tubular stress renal US negative for obstruction no proteinuria and benign urine sediment REC IVF hold ACEi follow kidney function and electrolytes Time Spent With Patient Time: Total time spent is greater than 50% in coordination of care (as documented) at patient's floor/unit and/or counseling patient: Progress Note: Quality Stroke Does the patient have a stroke diagnosis?: No
[2021-10-04 11:48] LABS: Glucose, Whole Blood 165 mg/dL (60-115)
[2021-10-04 16:44] LABS: Glucose, Whole Blood 148 mg/dL (60-115)
[2021-10-04] MEDS: Dextrose 5 % and 0.45 % NaCl 1,000 ML 80 ML IVCONT (17:07)
--- NOTE | 2021-10-04 19:37 | PC.NURSE ---
Low hemoglobin this AM. Reported to who ordered one unit PRBCs. Consent obtained. Blood transfused over 4hrs. Site intact. No reaction. VSS. Labs in AM to recheck levels. Poor PO intake. Fluids continue as ordered. Buttocks remains excoriated yet appears to be healing in some areas. TRIAD in use. F/C intact draining small amount of clear yellow urine. See MAR for insulin coverage in correlation to POCs.
[2021-10-04 21:09] LABS: Glucose, Whole Blood 158 mg/dL (60-115)
[2021-10-05] VITALS (8 sets, daily range): BP systolic 105–165; BP diastolic 64–75; PULSE 83–113; RESP 16–18; TEMP 36.7–37.9; O2SAT 93–99
[2021-10-05] MEDS: Heparin Sodium,Porcine 5,000 UNIT/ML VIAL 5000 UNIT SUBCUT ×3 (00:55→17:46)
[2021-10-05] MEDS: Dextrose 5 % and 0.45 % NaCl 1,000 ML 80 ML IVCONT (06:12)
[2021-10-05 07:35] LABS: Glucose, Whole Blood 253 mg/dL (60-115)
[2021-10-05 07:36] LABS: Hematocrit 29.7 % (37.0-47.0); Hemoglobin 9.2 g/dl (12.0-16.0); Mean Corpuscular Hemoglobin 25.3 pg (27.0-33.0); Mean Corpuscular Volume 81.6 fL (80.0-98.0); Mean Platelet Volume 9.8 fL (9.4-12.3); Platelet Count 634 X10*3/uL (160-400); Red Blood Count 3.64 X10*6/uL (4.20-5.50); Red Cell Distribution Width 17.5 % (11.0-16.0); White Blood Count 20.7 X10*3/uL (4.8-10.8)
[2021-10-05 07:49] LABS: Anion Gap 16 (12-20); Blood Urea Nitrogen 16 mg/dL (9-16); Calcium 6.2 mg/dL (8.4-10.2); Carbon Dioxide 21 mmol/L (22-29); Chloride 108 mmol/L (96-108); Creatinine Clr Calc Pharmacy 16.7; Estimated Glomerular Filt Rate 20; Glucose Fasting 288 mg/dL (60-99); Potassium 3.6 mmol/L (3.3-5.1); Sodium 141 mmol/L (135-145)
[2021-10-05] MEDS: Insulin Lispro 100 UNIT/ML 3 ML VIAL SUBCUT ×2 (08:00→11:41)
[2021-10-05] MEDS: Aspirin Enteric Coated 81 MG TABLET.DR PO (08:06)
[2021-10-05] MEDS: Levothyroxine Sodium 100 MCG TABLET PO (08:06)
--- NOTE | 2021-10-05 09:16 | P.PNIM_ITS ---
Subjective Subjective Date of Service: 10/05/21 Interval History: cc: gangrene interval history: no complaints Cardiovascular Cardiovascular: Reports no additional cardiovascular complaints Respiratory Respiratory: Reports no additional respiratory complaints Physical Exam Vital Signs: Vital Signs: Last Vital Signs Temp 99.4 F 10/05/21 07:42 Pulse 83 10/05/21 07:42 Resp 18 10/05/21 07:42 BP 138/69 10/05/21 07:42 Pulse Ox 99 10/05/21 07:42 BMI result Body Mass Index 24.5 General: agitated Resp:? CTA bilateral, no accessory muscles used CVS: S1,S2,RRR GI: soft, non tender, non distended Neuro:? 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 Objective Data Active Medications Acetaminophen (Acetaminophen 325 Mg Tablet) 650 mg PO Q6H PRN PRN Reason: Pain, Mild (Pain Scale 1-3) Last Admin: 10/02/21 20:32 Dose: 650 mg Documented by: TRINH Aspirin (Aspirin Enteric Coated 81 Mg Tablet.) 81 mg PO DAILY [facility] Last Admin: 10/05/21 08:06 Dose: 81 mg Documented by: DIANA Atorvastatin Calcium (Atorvastatin Calcium 80 Mg Tablet) 80 mg PO DAILY [facility] Last Admin: 10/05/21 08:06 Dose: 80 mg Documented by: DIANA Diltiazem HCl (Diltiazem Hcl Cd 180 Mg Cap.Er.24h) 360 mg PO DAILY [facility]; Protocol Last Admin: 10/04/21 08:06 Dose: 360 mg Documented by: TORITO Ferrous Sulfate (Ferrous Sulfate 324 Mg Tablet.) 324 mg PO BIDWM [facility] Last Admin: 10/05/21 08:06 Dose: 324 mg Documented by: DIANA Heparin Sodium (Porcine) (Heparin Sodium,Porcine 5,000 Unit/Ml Vial) 5,000 unit SUBCUT Q8H [facility] Last Admin: 10/05/21 00:55 Dose: 5,000 unit Documented by: TRINH Dextrose/Sodium Chloride (D51/2ns) 1,000 mls @ 80 mls/hr IVCONT .[id number] [facility] Last Admin: 10/05/21 06:12 Dose: 80 mls/hr Documented by: TRINH Insulin Human Lispro (Insulin Lispro 100 Unit/Ml 3 Ml Vial) 0 unit SUBCUT QIDAC HS [facility]; Protocol Last Admin: 10/05/21 08:00 Dose: 6 unit Documented by: DIANA Levothyroxine Sodium (Levothyroxine Sodium 100 Mcg Tablet) 100 mcg PO DAILY@0600 [facility] Last Admin: 10/05/21 08:06 Dose: 100 mcg Documented by: DIANA Metoprolol Succinate (Metoprolol Succinate Er 100 Mg Tab.Er.24h) 100 mg PO DAILY [facility]; Protocol Last Admin: 10/04/21 08:06 Dose: 100 mg Documented by: TORITO Morphine Sulfate (Morphine Sulfate 4 Mg/Ml Cartridge) 3 mg IVPUSH Q4H PRN; Protocol PRN Reason: moderate pain Last Admin: 10/04/21 12:07 Dose: 3 mg Documented by: TORITO Omeprazole (Omeprazole 20 Mg Capsule.Dr) 20 mg PO DAILY@0630 [facility] Last Admin: 10/05/21 08:06 Dose: 20 mg Documented by: DIANA Ondansetron HCl (Ondansetron Hcl 4 Mg/2 Ml Vial) 4 mg IVPUSH Q8H PRN PRN Reason: Nausea and Vomiting Last Admin: 09/30/21 10:04 Dose: 4 mg Documented by: DHARA Sodium Chloride (0.9 % Sodium Chloride Flush 3 Ml Syringe) [facility] Last Admin: 10/05/21 08:00 Dose: Not Given Documented by: DIANA Non-Admin Reason: IV Running Trazodone HCl (Trazodone Hcl 50 Mg Tablet) 50 mg PO BEDTIME [facility] Last Admin: 10/04/21 23:44 Dose: Not Given Documented by: TRINH Non-Admin Reason: pt sleeping Labs CBC & Chem 7: 10/05/21 06:49 10/05/21 06:49 Labs: Laboratory Results - last 24 hr 10/04/21 10/04/21 10/04/21 08:37 11:35 16:20 MCV MCH MCHC RDW Plt Count MPV Absolute Nucleated RBC Nucleated RBC % (auto) Anion Gap Estim Creat Clear Calc Estimated GFR POC Glucose 165 H 148 H Fasting Glucose Calcium Blood Type A Negative Antibody Screen NEGATIVE Crossmatch See Detail 0210/05/21 10/05/21 20:59 06:49 06:49 MCV 81.6 MCH 25.3 L MCHC 31.0 RDW 17.5 H Plt Count 634 H MPV 9.8 Absolute Nucleated RBC 0.000 Nucleated RBC % (auto) 0.0 Anion Gap 16 Estim Creat Clear Calc 16.7 Estimated GFR 20 POC Glucose 158 H Fasting Glucose 288 H Calcium 6.2 L Blood Type Antibody Screen Crossmatch 10/05/21 07:25 MCV MCH MCHC RDW Plt Count MPV Absolute Nucleated RBC Nucleated RBC % (auto) Anion Gap Estim Creat Clear Calc Estimated GFR POC Glucose 253 H Fasting Glucose Calcium Blood Type Antibody Screen Crossmatch Assessment and Plan (1) Dry gangrene: Status: Acute (2) Chronic foot ulcer: Status: Acute (3) Metabolic acidosis: Status: Acute (4) Leukocytosis: Status: Acute Plan A 76 years old lady with PMH of PVD, HTN, diabetes, hypothyroidism among others who presents to the hospital with right foot pain and swelling. Sepsis, resolved Secondary to right foot dry gangrene, post amputation BKA Pod 7 Negative Blood cultures off antibiotics ELLEN, hypernatremia dced lisinopril renal us was negative for hydro, but had some urinary retention (1L pvr), rock placed - will do trial of voiding hypernatremia resolved nephro following monitor bmp anemia likely inflammatory, no obvious blood loss transfused 1 unit prbc, hgb improved appropriately dysphagia mid teacher appreciated, continue modified diet Type 2 diabetes Hold oral medications Insulin Hypertension continue Cardizem, metoprolol Neuropathy continue pregabalin PVD continue aspirin and atorvastatin DVT PPX Heparin Quality Stroke Does the patient have a stroke diagnosis?: No VTE Prior VTE?: No VTE Risk Level:: Medical - moderate - high VTE Device Contraindication: Treatment Not Indicated VTE Drug Contraindication: N/A - Med Ordered
--- NOTE | 2021-10-05 10:22 | PM.PNNEP ---
Subjective Subjective Date of Service: 10/05/21 Interval history: seen and examined no complaints Physical Exam Vital Signs: Vital Signs: Last Vital Signs Temp 99.4 F 10/05/21 07:42 Pulse 83 10/05/21 07:42 Resp 18 10/05/21 07:42 BP 138/69 10/05/21 07:42 Pulse Ox 99 10/05/21 07:42 BMI result Body Mass Index 24.5 Const: General: no acute distress Neck: Neck: Yes supple Resp: Auscultation: diminished lung sounds Cardio: Heart sounds: S1 normal heart sound present and S2 normal heart sound present GI: Palpation (GI): Soft to palpation and nontender Extrem: General: No edema Objective Data Labs CBC & Chem 7: 10/05/21 06:49 10/05/21 06:49 Labs: Laboratory Results - last 24 hr 10/04/21 10/04/21 10/04/21 08:37 11:35 16:20 WBC RBC Hgb Hct MCV MCH MCHC RDW Plt Count MPV Absolute Nucleated RBC Nucleated RBC % (auto) Sodium Potassium Chloride Carbon Dioxide Anion Gap BUN Creatinine Estim Creat Clear Calc Estimated GFR POC Glucose 165 H 148 H Fasting Glucose Calcium Blood Type A Negative Antibody Screen NEGATIVE Crossmatch See Detail 10/04/21 10/05/21 10/05/21 20:59 06:49 06:49 WBC 20.7 H RBC 3.64 L D Hgb 9.2 L D Hct 29.7 L D MCV 81.6 MCH 25.3 L MCHC 31.0 RDW 17.5 H Plt Count 634 H MPV 9.8 Absolute Nucleated RBC 0.000 Nucleated RBC % (auto) 0.0 Sodium 141 Potassium 3.6 Chloride 108 Carbon Dioxide 21 L Anion Gap 16 BUN 16 Creatinine 2.37 H Estim Creat Clear Calc 16.7 Estimated GFR 20 POC Glucose 158 H Fasting Glucose 288 H Calcium 6.2 L Blood Type Antibody Screen Crossmatch 10/05/21 07:25 WBC RBC Hgb Hct MCV MCH MCHC RDW Plt Count MPV Absolute Nucleated RBC Nucleated RBC % (auto) Sodium Potassium Chloride Carbon Dioxide Anion Gap BUN Creatinine Estim Creat Clear Calc Estimated GFR POC Glucose 253 H Fasting Glucose Calcium Blood Type Antibody Screen Crossmatch Microbiology Microbiology Results: Microbiology 09/24/21 15:19 Blood - Venous Blood Culture - Final No growth after 5 days. 09/24/21 15:06 Blood - Venous Blood Culture - Final No growth after 5 days. Procedures Date of Service Date of Service: 10/05/21 Assessment & Plan Assessment and plan (1) ELLEN (acute kidney injury): Status: Acute Plan kidney function marginally better ELLEN due to compromised kidney perfusion and tubular stress renal US negative for obstruction no proteinuria and benign urine sediment REC discontinue IVF hold ACEi follow kidney function and electrolytes Time Spent With Patient Time: Total time spent is greater than 50% in coordination of care (as documented) at patient's floor/unit and/or counseling patient: Progress Note: Quality Stroke Does the patient have a stroke diagnosis?: No
--- NOTE | 2021-10-05 10:46 | PM.UROCN ---
History of Present Illness Consult details Consult date: 10/05/21 Narrative: 76-year-old female Background of poorly controlled chronic diabetes Admission to hospital with sepsis from distal limb and has undergone amputation Associated acute on chronic renal insult Has difficulty with urination incomplete emptying Type 2 diabetes neuropathic bladder Would suggest indwelling Gardiner catheter short-term and then may require clean intermittent catheterization Review of Systems Constitutional: Constitutional: Reports as per HPI and Reports no additional constitutional complaints Cardiovascular: Cardiovascular: Reports as per HPI and Reports no additional cardiovascular complaints Respiratory: Respiratory: Reports as per HPI and Reports no additional respiratory complaints Gastrointestinal: Gastrointestinal: Reports as per HPI and Reports no additional gastrointestinal complaints Genitourinary: Genitourinary: Reports as per HPI Musculoskeletal: Musculoskeletal: Reports no additional musculoskeletal complaints and Reports as per HPI Neurologic: Reports system reviewed and no additional complaints, except as documented and Reports as per HPI PMF Past Medical History Medical History Anemia in chronic kidney disease Anxiety Asthma Depression Diabetes mellitus Diabetic neuropathy Dysphagia Fibromyalgia GERD (gastroesophageal reflux disease) Hiatal hernia HTN (hypertension) Hx of gastritis Hypercholesterolemia Hypothyroidism IBS (irritable bowel syndrome) Mini stroke Mononeuritis On beta jeannie at home Osteoarthritis Osteoporosis PAD (peripheral artery disease) Vitamin B 12 deficiency Family History Family History Sister Diabetes Family history: reviewed and not pertinent Surgical History Surgical History H/O local excision of skin lesion History of ankle surgery History of back surgery History of esophagogastroduodenoscopy (EGD) History of open reduction and internal fixation (ORIF) procedure Hx of hysterectomy Social History Social History Household Members: Family Housing: House Do you presently have visiting nurse or other home services: Yes Unable to assess alcohol history related to: Unknown Alcohol intake: never Patient Tobacco Use Status: Former Tobacco user Quit Date: >20 yr ago e-Cigarette/Vaping Use: Never Used Second Hand Smoke Exposure: No Use of substances other than those prescribed or required for medical reasons: No Currently Displaying Signs/Symptoms of Drug Intoxication Withdrawal: No Have you been hit, kicked, punched, or otherwise hurt by someone within the past year? 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 Meds Allergies Allergy/AdvReac Type Severity Reaction Status Date / Time ibuprofen [From MOTRIN] Allergy Unknown UPSET Verified 09/24/21 13:23 STOMACH Active Medications: Current Medications Acetaminophen (Acetaminophen 325 Mg Tablet) 650 mg PO Q6H PRN PRN Reason: Pain, Mild (Pain Scale 1-3) Last Admin: 10/02/21 20:32 Dose: 650 mg Documented by: Aspirin (Aspirin Enteric Coated 81 Mg Tablet.) 81 mg PO DAILY [facility] Last Admin: 10/05/21 08:06 Dose: 81 mg Documented by: Atorvastatin Calcium (Atorvastatin Calcium 80 Mg Tablet) 80 mg PO DAILY [facility] Last Admin: 10/05/21 08:06 Dose: 80 mg Documented by: Diltiazem HCl (Diltiazem Hcl Cd 180 Mg Cap.Er.24h) 360 mg PO DAILY [facility]; Protocol Last Admin: 10/04/21 08:06 Dose: 360 mg Documented by: Ferrous Sulfate (Ferrous Sulfate 324 Mg Tablet.) 324 mg PO BIDWM [facility] Last Admin: 10/05/21 08:06 Dose: 324 mg Documented by: Heparin Sodium (Porcine) (Heparin Sodium,Porcine 5,000 Unit/Ml Vial) 5,000 unit SUBCUT Q8H [facility] Last Admin: 10/05/21 00:55 Dose: 5,000 unit Documented by: Dextrose/Sodium Chloride (D51/2ns) 1,000 mls @ 80 mls/hr IVCONT .[id number] [facility] Last Admin: 10/05/21 06:12 Dose: 80 mls/hr Documented by: Insulin Human Lispro (Insulin Lispro 100 Unit/Ml 3 Ml Vial) 0 unit SUBCUT QIDACHS [facility]; Protocol Last Admin: 10/05/21 08:00 Dose: 6 unit Documented by: Levothyroxine Sodium (Levothyroxine Sodium 100 Mcg Tablet) 100 mcg PO DAILY@0600 [facility] Last Admin: 10/05/21 08:06 Dose: 100 mcg Documented by: Metoprolol Succinate (Metoprolol Succinate Er 100 Mg Tab.Er.24h) 100 mg PO DAILY [facility]; Protocol Last Admin: 10/04/21 08:06 Dose: 100 mg Documented by: Morphine Sulfate (Morphine Sulfate 4 Mg/Ml Cartridge) 3 mg IVPUSH Q4H PRN; Protocol PRN Reason: moderate pain Last Admin: 10/04/21 12:07 Dose: 3 mg Documented by: Omeprazole (Omeprazole 20 Mg Capsule.) 20 mg PO DAILY@0630 [facility] Last Admin: 10/05/21 08:06 Dose: 20 mg Documented by: Ondansetron HCl (Ondansetron Hcl 4 Mg/2 Ml Vial) 4 mg IVPUSH Q8H PRN PRN Reason: Nausea and Vomiting Last Admin: 09/30/21 10:04 Dose: 4 mg Documented by: Sodium Chloride (0.9 % Sodium Chloride Flush 3 Ml Syringe) 3 ml IVFLUSH QSHIFT [facility] Last Admin: 10/05/21 08:00 Dose: Not Given Documented by: Trazodone HCl (Trazodone Hcl 50 Mg Tablet) 50 mg PO BEDTIME [facility] Last Admin: 10/04/21 23:44 Dose: Not Given Documented by: Home Medications Medication Instructions Recorded Confirmed Last Taken Type aspirin 81 mg tablet,delayed 81 mg PO DAILY 05/23/20 09/24/21 08/11/21 History release citalopram 20 mg tablet 20 mg PO DAILY 05/23/20 09/24/21 08/11/21 History diltiazem HCl 360 mg capsule,24 360 mg PO DAILY 05/23/20 09/24/21 08/11/21 History hr,extended release glipizide 10 mg tablet, extended 10 mg PO DAILY 05/23/20 09/24/21 08/11/21 History release 24 hr hydrochlorothiazide 12.5 mg capsule 12.5 mg PO DAILY 05/23/20 09/24/21 08/11/21 History levothyroxine 100 mcg tablet 100 mcg PO DAILY 05/23/20 09/24/21 08/11/21 History lisinopril 40 mg tablet 40 mg PO DAILY 05/23/20 09/24/21 08/11/21 History metformin 500 mg tablet,extended 1,000 mg PO BID 05/23/20 09/24/21 08/11/21 History release 24 hr metoprolol succinate 100 mg 100 mg PO DAILY 05/23/20 09/24/21 08/11/21 History tablet,extended release 24 hr pregabalin 200 mg capsule 200 mg PO BEDTIME 05/23/20 09/24/21 Unknown History sitagliptin 100 mg tablet 100 mg PO DAILY 05/23/20 09/24/21 08/11/21 History trazodone 50 mg tablet 50 mg PO BEDTIME 05/23/20 09/24/21 08/11/21 History atorvastatin 80 mg tablet 1 tab PO DAILY 08/12/21 09/24/21 08/11/21 History denosumab 60 mg/mL subcutaneous 60 mg SUBCUT [id number] 08/12/21 09/24/21 Unknown History syringe (Prolia) insulin glargine 100 unit/mL (3 15 unit SUBCUT BEDTIME 08/12/21 09/24/21 Unknown History mL) subcutaneous pen (Lantus Solostar U-100 Insulin) melatonin 5 mg tablet 10 mg PO BEDTIME 08/12/21 09/24/21 08/11/21 History meloxicam 7.5 mg tablet 1 tab PO DAILY 08/12/21 09/24/21 Unknown History pregabalin 100 mg capsule 100 mg PO DAILY 08/12/21 09/24/21 Unknown History omeprazole 20 mg capsule,delayed 20 mg PO DAILY 09/24/21 09/24/21 Unknown History release oxycodone 5 mg tablet 1 tab PO BID PRN 09/24/21 09/24/21 Unknown History Physical Exam Vital Signs: Vital Signs: Last Vital Signs Temp 99.4 F 10/05/21 07:42 Pulse 83 10/05/21 07:42 Resp 18 10/05/21 07:42 BP 138/69 10/05/21 07:42 Pulse Ox 99 10/05/21 07:42 BMI result Body Mass Index 24.5 Const: General: cooperative, healthy appearing, comfortable and no acute distress Orientation/consciousness: patient oriented x3 HENMT: Face and sinus: Yes normal facial exam Mouth: moist mucous membranes Neck: Neck: Yes normal visual inspection, Yes full ROM and Yes trachea midline Chest: Chest palpation & inspection: normal inspection of the chest Resp: Effort & Inspection: normal respiratory effort, able to speak in complete sentences and no respiratory distress GI: Inspection: Yes normal to inspection Back/Spine/Pelvis: Cervical Spine: normal cervical lordosis Thoracic/Lumbar Spine: thoracic and lumbar spine normal to inspection Skin: General skin exam: no rashes or lesions noted Neuro: General: patient oriented x3, tone normal and moves all extremities Extrem: General: Yes normal to inspection and Yes capillary refill normal Results Labs Result diagrams: 10/05/21 06:49 10/05/21 06:49 Labs: Abnormal lab results 10/04/21 10/04/21 10/04/21 Range/Units 08:37 11:35 16:20 WBC (4.8-10.8) X10*3/uL RBC (4.20-5.50) X10*6/uL Hgb (12.0-16.0) g/dl Hct (37.0-47.0) % MCH (27.0-33.0) pg RDW (11.0-16.0) % Plt Count (160-400) X10*3/uL Carbon Dioxide (22-29) mmol/L Creatinine (0.5-1.4) mg/dL POC Glucose 165 H 148 H (60-115) mg/dL Fasting Glucose (60-99) mg/dL Calcium (8.4-10.2) mg/dL Crossmatch See Detail 10/04/21 10/05/21 10/05/21 Range/Units 20:59 06:49 06:49 WBC 20.7 H (4.8-10.8) X10*3/uL RBC 3.64 L D (4.20-5.50) X10*6/uL Hgb 9.2 L D (12.0-16.0) g/dl Hct 29.7 L D (37.0-47.0) % MCH 25.3 L (27.0-33.0) pg RDW 17.5 H (11.0-16.0) % Plt Count 634 H (160-400) X10*3/uL Carbon Dioxide 21 L (22-29) mmol/L Creatinine 2.37 H (0.5-1.4) mg/dL POC Glucose 158 H (60-115) mg/dL Fasting Glucose 288 H (60-99) mg/dL Calcium 6.2 L (8.4-10.2) mg/dL Crossmatch 10/05/21 Range/Units 07:25 WBC (4.8-10.8) X10*3/uL RBC (4.20-5.50) X10*6/uL Hgb (12.0-16.0) g/dl Hct (37.0-47.0) % MCH (27.0-33.0) pg RDW (11.0-16.0) % Plt Count (160-400) X10*3/uL Carbon Dioxide (22-29) mmol/L Creatinine (0.5-1.4) mg/dL POC Glucose 253 H (60-115) mg/dL Fasting Glucose (60-99) mg/dL Calcium (8.4-10.2) mg/dL Crossmatch Short CBC 10/05/21 Range/Units 06:49 WBC 20.7 H (4.8-10.8) X10*3/uL Hgb 9.2 L D (12.0-16.0) g/dl Hct 29.7 L D (37.0-47.0) % Plt Count 634 H (160-400) X10*3/uL BMP 10/05/21 06:49 Sodium 141 Potassium 3.6 Chloride 108 Carbon Dioxide 21 L BUN 16 Creatinine 2.37 H Calcium 6.2 L All other labs normal. Assessment and Plan (1) Neurogenic urinary bladder disorder: Status: Acute (2) Diabetic neuropathy associated with diabetes mellitus due to underlying condition: Status: Acute Plan Gardiner catheter for 7 days then CIC teaching Procedures Date of Service Date of Service: 10/05/21
--- NOTE | 2021-10-05 10:58 | MHC.SLORD ---
Speech Language Pathology Order Status: CENTRAL OFFICE FRAME WIRER attempted to see patient for dysphagia treatment- Offered patient food and liquid- patient refused all items. Patient is on [facility] (NDD2) solids and THIN liquids- CENTRAL OFFICE FRAME WIRER will continue to follow.
--- NOTE | 2021-10-05 11:03 | MHC.CLN ---
F/U NSG REPORTED POOR PO AND FRAGILE SKIN RECOMMEND ADDING GLUCERNA TID TO INCREASE KCALS MONITOR PO INTAKE CLOSELY
--- NOTE | 2021-10-05 11:14 | W.MHC.F2F ---
Service Date Service Date: 10/05/21 Encounter Date of encounter: 10/05/21 Reasons for Services Reason for longterm: wound care (Wound care upon discharge: xeroform, 4x4 and Kerlix wrap to be changed daily. Please call Dr. Ravi at [phone] for 2 week follow up for suture and staple removal), medication management, medication treatment and teach disease management Homebound: Leaving the home is medically contraindicated at this time without the asist of a device and/or another person due th the listed conditions above and below. Reason homebound: unsteady gait / fall risk Certification: Based on the above findings, I certify that this patient is confined to the home and needs intermittent longterm care, physical therapy and/or speech therapy, or continues to need occupational therapy. The patient is under my care, and I have initiated the establishment of the plan of care. The patient will be followed by a physician who will periodically review the plan of care.
--- NOTE | 2021-10-05 11:15 | PM.DS ---
DS: Providers Provider Date of Service: 10/06/21 Date of admission: 09/24/21 17:42 Primary care physician: Roberto Carlos Sanford MD Consults: 09/24/21 17:42 Consult to Vascular Surgery Routine Consulting Provider: Vinnie Alaniz Reason for consultation: Foot ischemia 09/26/21 08:07 Consult to Infectious Diseases Routine Consulting Provider: Quynh Gee Reason for consultation: Gas Gangrene ? for your kind eval and rec./2nd opinion for amputation by fm 09/26/21 10:29 Consult to General Surgery Routine Consulting Provider: Gina Plaza Reason for consultation: 2nd opinion on amputation per family request, Rt heel gangrene 09/29/21 11:41 Consult to Nephrology Routine Consulting Provider: Carlton Zhang Reason for consultation: Anion gap metabolic acidosis for your kind eval 10/01/21 23:00 Consult to Urology Routine Consulting Provider: Elías Bales Reason for consultation: urine retension DS: Diagnosis Discharge Diagnosis (1) Neurogenic urinary bladder disorder: Status: Acute (2) Diabetic neuropathy associated with diabetes mellitus due to underlying condition: Status: Acute DS: Summary Hospital Course Hospital Course: Patient was admitted for sepsis secondary to right foot dry gangrene. She was treated with empiric antibiotics of vancomycin Zosyn, she underwent right BKA, blood cultures were negative, antibiotics were discontinued. Course complicated by acute kidney injury and hypernatremia. Her lisinopril was discontinued. She was noted to have some urinary retention but no hydronephrosis on ultrasound. She was given IV fluids and hypernatremia resolved, ELLEN improved slightly and stabilized. She should follow up labs outpatient to ensure continued renal recovery. Patient also had some anemia due to inflammation and was transfused. Hemoglobin improved appropriately. Patient is feeling better will be discharged to snf. she is expected to require less than 30 days. Time Spent with Patient Time attestation: Total time spent providing and/or coordinating discharge services: Discharge coordination time: Greater than 30 minutes Quality: Stroke Does the patient have a stroke diagnosis?: No Physical Exam Vital Signs: Vital Signs: Last Vital Signs Temp 99.4 F 10/05/21 07:42 Pulse 83 10/05/21 07:42 Resp 18 10/05/21 07:42 BP 138/69 10/05/21 07:42 Pulse Ox 99 10/05/21 07:42 BMI result Body Mass Index 24.5 General: agitated Resp:? CTA bilateral, no accessory muscles used CVS: S1,S2,RRR GI: soft, non tender, non distended Neuro:? 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 DS: Data Data Completed and Pending Completed studies during hospitalization [Text1]: Pending at discharge 09/28/21 13:03 Surgical [PTH] Routine Procedures Inspection of Gallbladder, Percutaneous Endoscopic Approach (06/03/21) Release Peritoneum, Open Approach (06/03/21) Repair Abdominal Wall, Open Approach (06/03/21) Resection of Gallbladder, Open Approach (06/03/21) Labs on day of discharge: Laboratory Results - last 24 hr 10/04/21 10/04/21 10/04/21 08:37 11:35 16:20 WBC RBC Hgb Hct MCV MCH MCHC RDW Plt Count MPV Absolute Nucleated RBC Nucleated RBC % (auto) Sodium Potassium Chloride Carbon Dioxide Anion Gap BUN Creatinine Estim Creat Clear Calc Estimated GFR POC Glucose 165 H 148 H Fasting Glucose Calcium Blood Type A Negative Antibody Screen NEGATIVE Crossmatch See Detail 10/04/21 10/05/21 10/05/21 20:59 06:49 06:49 WBC 20.7 H RBC 3.64 L D Hgb 9.2 L D Hct 29.7 L D MCV 81.6 MCH 25.3 L MCHC 31.0 RDW 17.5 H Plt Count 634 H MPV 9.8 Absolute Nucleated RBC 0.000 Nucleated RBC % (auto) 0.0 Sodium 141 Potassium 3.6 Chloride 108 Carbon Dioxide 21 L Anion Gap 16 BUN 16 Creatinine 2.37 H Estim Creat Clear Calc 16.7 Estimated GFR 20 POC Glucose 158 H Fasting Glucose 288 H Calcium 6.2 L Blood Type Antibody Screen Crossmatch 10/05/21 07:25 WBC RBC Hgb Hct MCV MCH MCHC RDW Plt Count MPV Absolute Nucleated RBC Nucleated RBC % (auto) Sodium Potassium Chloride Carbon Dioxide Anion Gap BUN Creatinine Estim Creat Clear Calc Estimated GFR POC Glucose 253 H Fasting Glucose Calcium Blood Type Antibody Screen Crossmatch Discharge Plan Discharge Patient Disposition: er SNF Discharge Diagnosis: ellen, DFU Referrals: Roberto Carlos Sanford MD [Primary Care Provider] - 1 Week Discharge Medications: New tamsulosin 0.4 mg Capsule 0.4 mg PO BEDTIME Qty: 30 0RF Continued atorvastatin 80 mg tablet 1 tab PO DAILY 0RF Lantus Solostar U-100 Insulin 100 unit/mL (3 mL) insulin pen 15 unit subcut BEDTIME 0RF melatonin 5 mg tablet 10 mg PO BEDTIME 0RF Prolia 60 mg/mL syringe 60 mg subcut [id number] 0RF ferrous sulfate 324 mg (65 mg iron) Tablet,Delayed Release (Dr/Ec) 324 mg PO BIDWM Qty: 30 0RF omeprazole 20 mg capsule,delayed release(DR/EC) 20 mg PO DAILY 0RF oxycodone 5 mg tablet 1 tab PO BID PRN (Reason: Pain) Qty: 30 0RF pregabalin 100 mg capsule 100 mg PO DAILY Qty: 30 0RF pregabalin 200 mg capsule 200 mg PO BEDTIME Qty: 30 0RF sitagliptin 100 mg tablet 100 mg PO DAILY 0RF citalopram 20 mg tablet 20 mg PO DAILY 0RF aspirin 81 mg tablet,delayed release (DR/EC) 81 mg PO DAILY 0RF Hold Instructions: Resume on 10/27/21. Hold until gets Gi workup for anemia diltiazem HCl 360 mg capsule,extended release 24 hr 360 mg PO DAILY 0RF metoprolol succinate 100 mg tablet extended release 24 hr 100 mg PO DAILY 0RF trazodone 50 mg tablet 50 mg PO BEDTIME 0RF levothyroxine 100 mcg tablet 100 mcg PO DAILY 0RF Discontinued meloxicam 7.5 mg tablet 1 tab PO DAILY 0RF metformin 500 mg tablet extended release 24 hr 1,000 mg PO BID 0RF lisinopril 40 mg tablet 40 mg PO DAILY 0RF hydrochlorothiazide 12.5 mg capsule 12.5 mg PO DAILY 0RF glipizide 10 mg tablet extended release 24hr 10 mg PO DAILY 0RF Discharge Orders: Discharge Order (Routine); Ordered 10/06/21 Ordered By: Hever Mcgee Diet: advance to usual diet Activity on Discharge: As tolerated Stand Alone Forms: Patient Portal Discharge page Activity Restrictions/Additional Instructions: Wound care upon discharge: xeroform, 4x4 and Kerlix wrap to be changed daily. Please call Dr. Alaniz at [phone] for 2 week follow up for suture and staple removal Care Plan Goals: recovery Health Concerns: ellen, bka Plan of Treatment: encourage po intake, follow up with dr alaniz Assessment: see above
[2021-10-05 11:21] LABS: Glucose, Whole Blood 344 mg/dL (60-115)
[2021-10-05] MEDS: Morphine Sulfate 4 MG/ML CARTRIDGE 3 MG IVPUSH ×2 (12:09→17:46)
--- NOTE | 2021-10-05 12:49 | MHC.CM.PN ---
pt ready for dc today ..family planning on taking pt home unaware of bed search in progress ..discussed str with family who will agree to placemnt for short time only natty acuna considering pt [facility] will need to give auth if auth cvan be received as it is a holiday today md aware of change in dc plans
[2021-10-05 16:26] LABS: Glucose, Whole Blood 127 mg/dL (60-115)
[2021-10-05] MEDS: 0.9 % Sodium Chloride Flush 3 ML SYRINGE IVFLUSH (16:56)
[2021-10-05] MEDS: Nystatin Powder 15 GM BOTTLE 1 APPL TOPICAL ×2 (16:58→21:05)
--- NOTE | 2021-10-05 17:52 | PC.NURSE ---
1700 Bladder scan 133ml. Abd soft. Refused all meals and PO meds. Dr Mcgee aware. Very restless uncooperative with care. Morphine given with some eff. Dsg on right stump D&I
[2021-10-05 17:53] LABS: Influenza A PCR NEGATIVE (Negative); Influenza B PCR NEGATIVE (Negative); Resp Syncy Virus RNA Qual PCR NEGATIVE (Negative); SARS COV2 PCR INHOUSE NEGATIVE (Negative)
[2021-10-05 20:28] LABS: Glucose, Whole Blood 157 mg/dL (60-115)
[2021-10-05] MEDS: traZODone HCL 50 MG TABLET PO (20:59)
[2021-10-06] MEDS: 0.9 % Sodium Chloride Flush 3 ML SYRINGE IVFLUSH ×2 (02:21→08:39)
[2021-10-06 04:00] VITALS: BP 167/73; PULSE 101; RESP 18; TEMP 37.2; O2SAT 97
[2021-10-06 04:45] LABS: Hematocrit 26.7 % (37.0-47.0); Hemoglobin 8.4 g/dl (12.0-16.0); Mean Corpuscular HGB Conc 31.5 g/dl (31.0-35.0); Mean Corpuscular Hemoglobin 25.8 pg (27.0-33.0); Mean Corpuscular Volume 81.9 fL (80.0-98.0); Mean Platelet Volume 9.8 fL (9.4-12.3); Platelet Count 608 X10*3/uL (160-400); Red Blood Count 3.26 X10*6/uL (4.20-5.50); Red Cell Distribution Width 17.3 % (11.0-16.0); White Blood Count 19.5 X10*3/uL (4.8-10.8)
[2021-10-06 05:11] LABS: Anion Gap 16 (12-20); Blood Urea Nitrogen 17 mg/dL (9-16); Calcium 6.1 mg/dL (8.4-10.2); Carbon Dioxide 22 mmol/L (22-29); Chloride 110 mmol/L (96-108); Creatinine Clr Calc Pharmacy 17.3; Estimated Glomerular Filt Rate 21; Glucose Fasting 178 mg/dL (60-99); Potassium 3.5 mmol/L (3.3-5.1); Sodium 144 mmol/L (135-145)
[2021-10-06 07:25] LABS: Glucose, Whole Blood 182 mg/dL (60-115)
[2021-10-06 07:45] VITALS: BP 136/63; PULSE 99; RESP 18; TEMP 37.2; O2SAT 99
--- NOTE | 2021-10-06 07:54 | PM.PNNEP ---
Subjective Subjective Date of Service: 10/06/21 Interval history: seen and examined no complaints Physical Exam Vital Signs: Vital Signs: Last Vital Signs Temp 99.0 F 10/06/21 07:45 Pulse 99 10/06/21 07:45 Resp 18 10/06/21 07:45 BP 136/63 10/06/21 07:45 Pulse Ox 99 10/06/21 07:45 BMI result Body Mass Index 24.5 Const: General: no acute distress Neck: Neck: Yes supple Resp: Auscultation: diminished lung sounds Cardio: Heart sounds: S1 normal heart sound present and S2 normal heart sound present GI: Palpation (GI): Soft to palpation and nontender Extrem: General: No edema Objective Data Labs CBC & Chem 7: 10/06/21 04:08 10/06/21 04:08 Labs: Laboratory Results - last 24 hr 10/05/21 10/05/21 10/05/21 11:17 16:17 17:10 WBC RBC Hgb Hct MCV MCH MCHC RDW Plt Count MPV Absolute Nucleated RBC Nucleated RBC % (auto) Sodium Potassium Chloride Carbon Dioxide Anion Gap BUN Creatinine Estim Creat Clear Calc Estimated GFR POC Glucose 344 H 127 H Fasting Glucose Calcium Influenza Type A (PCR) NEGATIVE Influenza Type B (PCR) NEGATIVE RSV RNA Qual (PCR) NEGATIVE SARS-CoV-2 RNA (RT-PCR) NEGATIVE 10/05/21 10/06/21 10/06/21 20:24 04:08 04:08 WBC 19.5 H RBC 3.26 L Hgb 8.4 L Hct 26.7 L MCV 81.9 MCH 25.8 L MCHC 31.5 RDW 17.3 H Plt Count 608 H MPV 9.8 Absolute Nucleated RBC 0.000 Nucleated RBC % (auto) 0.0 Sodium 144 Potassium 3.5 Chloride 110 H Carbon Dioxide 22 Anion Gap 16 BUN 17 H Creatinine 2.28 H Estim Creat Clear Calc 17.3 Estimated GFR 21 POC Glucose 157 H Fasting Glucose 178 H Calcium 6.1 L Influenza Type A (PCR) Influenza Type B (PCR) RSV RNA Qual (PCR) SARS-CoV-2 RNA (RT-PCR) 10/06/21 07:18 WBC RBC Hgb Hct MCV MCH MCHC RDW Plt Count MPV Absolute Nucleated RBC Nucleated RBC % (auto) Sodium Potassium Chloride Carbon Dioxide Anion Gap BUN Creatinine Estim Creat Clear Calc Estimated GFR POC Glucose 182 H Fasting Glucose Calcium Influenza Type A (PCR) Influenza Type B (PCR) RSV RNA Qual (PCR) SARS-CoV-2 RNA (RT-PCR) Microbiology Microbiology Results: Microbiology 09/24/21 15:19 Blood - Venous Blood Culture - Final No growth after 5 days. 09/24/21 15:06 Blood - Venous Blood Culture - Final No growth after 5 days. Procedures Date of Service Date of Service: 10/06/21 Assessment & Plan Assessment and plan (1) ELLEN (acute kidney injury): Status: Acute Plan kidney function slowly improving ELLEN due to compromised kidney perfusion and tubular stress renal US negative for obstruction no proteinuria and benign urine sediment normal baseline kidney function REC no need for IVF hold ACEi follow kidney function and electrolytes Time Spent With Patient Time: Total time spent is greater than 50% in coordination of care (as documented) at patient's floor/unit and/or counseling patient: Progress Note: Quality Stroke Does the patient have a stroke diagnosis?: No
[2021-10-06] MEDS: Morphine Sulfate 4 MG/ML CARTRIDGE 3 MG IVPUSH (08:31)
[2021-10-06] MEDS: Heparin Sodium,Porcine 5,000 UNIT/ML VIAL 5000 UNIT SUBCUT (08:33)
[2021-10-06] MEDS: dilTIAZem HCL CD 180 MG CAP.ER.24H 360 MG PO (08:34)
[2021-10-06] MEDS: Metoprolol Succinate ER 100 MG TAB.ER.24H PO (08:35)
[2021-10-06] MEDS: Aspirin Enteric Coated 81 MG TABLET.DR PO (08:35)
[2021-10-06] MEDS: Nystatin Powder 15 GM BOTTLE 1 APPL TOPICAL (08:38)
--- NOTE | 2021-10-06 09:39 | MHC.CM.PN ---
PT REMAINS MEDICALLY CLEARED FOR D/C, NO BED OFFERS FROM [facility], CM AWAITING INSURANCE AUTH FORM [facility]UL[facility] JOSEPH PT WILL BE ABLE TO D/C LATER TODAY ONCE AUTH OBTAINED W/[facility] FOR BLS TRANSPORT.
[2021-10-06 11:08] LABS: Glucose, Whole Blood 202 mg/dL (60-115)
[2021-10-06 11:53] VITALS: BP 125/84; PULSE 90; RESP 18; TEMP 36.4; O2SAT 96
--- NOTE | 2021-10-06 12:15 | MHC.CM.PN ---
[facility] HAS RECEIVED AUTH, PT WILL D/C AT APPROX 3PM VIA [facility] FOR BLS TRANSPORT, CM CONTACTED PTS ALTERNATE HCP [facility] AT 11:30AM PRIMARY HCP UNAVAILABLE, [facility] AGREEABLE TO PLAN. [facility] DID REQUEST SNF IN [place] HOWEVER HE IS AWARE PT DID NOT RECEIVE BED OFFERS FROM ANY [place] SNF.
[2021-10-06] MEDS: Insulin Lispro 100 UNIT/ML 3 ML VIAL SUBCUT (12:16)
[2021-10-06 13:02] LABS: Anti Glomerular Basement Memb <1.0 AI; Myeloperoxidase Antibody <1.0 AI; Proteinase 3 PR3 Antibodies <1.0 AI
--- NOTE | 2021-10-06 14:59 | MHC.SLORD ---
Speech Language Pathology Order Status: Attempted to see PT this a.m. Pt refusing food, stating she has no appetite. PT did not have breakfast this a.m. for this reason, per who was present. Will re-attempt tomorrow a.m.
[2021-10-06 15:31] VITALS: BP 164/74; PULSE 93; RESP 18; TEMP 37.6; O2SAT 91
[2021-10-06 15:55] LABS: Glucose, Whole Blood 139 mg/dL (60-115)
== END 2021-10-06 16:24 | disposition skilled nursing facility (03) | DRG 854 ==
LOC: HO.ED 17:02 → HO.EDOVER 17:57 → HO.IMC 09-25 06:11 → HO.S3 10-05 17:07
PROVIDERS: Internal Medicine Hypertension Specialist; Surgery Vascular Surgery; Admitting Provider Student in an Organized Health Care Education/Training Program; Emergency Provider Emergency Medicine; PCP Internal Medicine; Visit Provider Internal Medicine
PROC: 0Y6H0Z2 Detachment at Right Lower Leg, Mid, Open Approach (ICD-10-PCS; CPT 27880; principal; 2021-09-28 11:50)
DX: A41.9 Sepsis, unspecified organism (principal); L03.115 Cellulitis of right lower limb; E11.52 Type 2 diabetes mellitus with diabetic peripheral angiopathy with gangrene; E87.2 Acidosis; E03.9 Hypothyroidism, unspecified; E11.40 Type 2 diabetes mellitus with diabetic neuropathy, unspecified; E11.621 Type 2 diabetes mellitus with foot ulcer; L97.519 Non-pressure chronic ulcer of other part of right foot with unspecified severity; R33.9 Retention of urine, unspecified; E87.6 Hypokalemia; D72.829 Elevated white blood cell count, unspecified; D64.9 Anemia, unspecified; I10 Essential (primary) hypertension; R13.10 Dysphagia, unspecified; Z20.822 Contact with and (suspected) exposure to COVID-19; Z88.6 Allergy status to analgesic agent; Z79.82 Long term (current) use of aspirin; Z79.4 Long term (current) use of insulin; Z79.890 Hormone replacement therapy; Z79.899 Other long term (current) drug therapy
CPT/HCPCS: 0241U; 36415; 73620; 73660; 76775; 80048; 80076; 80202; 82009; 82550; 82565; 82803; 82947; 83036; 83520; 83605; 85025; 85027; 85610; 86021; 86160; 86850; 86900; 86901; 86923; 87040; 87635; 88307; 88311; 92526; 92610; 96361; 96365; 96375; 97162; 97530; 99285; C1758; J2250; J2270; J2370; J2405; J2543; J2550; J3010; J3370; P9016

== ENCOUNTER 2021-10-08 12:28 | Inpatient (IN) | payer MEDICARE, SELFPAY ==
--- NOTE | ~2021-10-08 | XR_ITS ---
EXAMINATION: XR FOOT, LEFT CLINICAL INFORMATION: Evaluate osteomyelitis COMPARISON: September 24, 2021 and May 04, 2019 TECHNIQUE: AP, lateral, and oblique views of the left foot. FINDINGS: There is no evidence of acute fracture or dislocation of the left foot. Ulceration is seen about the dorsum of the second distal phalanx. No definite erosive or bone destructive identified. There is an old healed left fifth proximal phalanx fracture. Prominent vascular calcifications are seen. Plantar calcaneal spur is noted. There is some degenerative change likely posttraumatic involving the fourth proximal interphalangeal joint. Metallic hardware seen about the ankle. XR/XR foot LT min 3V IMPRESSION: Ulceration about the dorsal aspect of the second distal phalanx without plain film evidence of acute osteomyelitis.
--- NOTE | ~2021-10-08 | XR_ITS ---
EXAMINATION: XR CHEST CLINICAL INFORMATION: FTT COMPARISON: August 12, 2021 TECHNIQUE: AP portable view of the chest was obtained. FINDINGS: There is no evidence of acute parenchymal disease, pneumothorax, or pleural effusion. Heart upper limits of normal in size. No evidence of pulmonary edema. There is calcific tendinitis of the right shoulder. XR/XR chest 1V IMPRESSION: No acute disease.
[2021-10-08 12:45] VITALS: BP 131/53; BP 142/79; PULSE 112; PULSE 115; RESP 18; TEMP 36.6; O2SAT 95; O2SAT 99; BMI 27.3
--- NOTE | 2021-10-08 12:50 | PHA.MEDREC ---
Pharmacy Consult ? Medication Reconciliation Pharmacy has completed the medication reconciliation. Patient discharge 10/06/21 to [facility]. Patient was sent back with a medication list. Medication list matched discharge summary. Jenifer Rojas, MaeD
--- NOTE | 2021-10-08 13:20 | ECG_ITS ---
Test Reason : FAILURE TO THRIVE Blood Pressure : / mmHG Vent. Rate : 115 BPM Atrial Rate : 115 BPM P-R Int : 140 ms QRS Dur : 064 ms QT Int : 350 ms P-R-T Axes : 054 003 065 degrees QTc Int : 484 ms Sinus tachycardia Nonspecific ST and T wave abnormality Abnormal ECG When compared with ECG of 11-APR-2021 19:39, Criteria for Inferior infarct are no longer Present Nonspecific T wave abnormality now evident in Lateral leads Referred By: Patricia Riley Electronically Signed By:ANIA BILLINGS
--- NOTE | 2021-10-08 13:56 | ED_ITS ---
HPI - General Adult General Chief complaint: Failure to Thrive Stated complaint: FTT, REFUSING TREATMENT Time Seen by Provider: 10/08/21 12:53 Source: patient and EMS Mode of arrival: EMS History of Present Illness HPI narrative: 76-year-old female with a PMHx anemia, anxiety, asthma, IDDM, fibromyalgia, GERD, HTN, HLD, hypothyroid, IBS, PAD, recently discharged from our facility on 10/05/2021 s/p sepsis secondary to right foot gangrene s/p right BKA, hospital course complicated by ELLEN and hypernatremia, presenting to ED from SNF for f ailure to thrive. Per son patient has been refusing everything at rehab including food, water, rehab, and medications other than opiates. Per son patient acute on chronically confused due to pain. Son also reports worsening L foot ulcerations. History limited due to patient's acute mental status Onset (ago): week(s) Related Data Home Medications Medication Instructions Recorded Confirmed citalopram 20 mg tablet 20 mg PO DAILY 05/23/20 10/08/21 diltiazem HCl 360 mg capsule,24 360 mg PO DAILY 05/23/20 10/08/21 hr,extended release levothyroxine 100 mcg tablet 100 mcg PO DAILY@0600 05/23/20 10/08/21 metoprolol succinate 100 mg 100 mg PO DAILY 05/23/20 10/08/21 tablet,extended release 24 hr sitagliptin 100 mg tablet 100 mg PO DAILY 05/23/20 10/08/21 trazodone 50 mg tablet 50 mg PO BEDTIME 05/23/20 10/08/21 atorvastatin 80 mg tablet 1 tab PO DAILY 08/12/21 10/08/21 denosumab 60 mg/mL subcutaneous 60 mg SUBCUT [id number] 08/12/21 10/08/21 syringe (Prolia) insulin glargine 100 unit/mL (3 15 unit SUBCUT BEDTIME 08/12/21 10/08/21 mL) subcutaneous pen (Lantus Solostar U-100 Insulin) melatonin 5 mg tablet 10 mg PO BEDTIME 08/12/21 10/08/21 omeprazole 20 mg capsule,delayed 20 mg PO DAILY@0630 09/24/21 10/08/21 release aspirin 81 mg chewable tablet 81 mg PO DAILY 10/08/21 10/08/21 Previous Rx's Medication Instructions Recorded ferrous sulfate 324 mg (65 mg 324 mg PO BIDWM #30 tab 08/17/21 iron) tablet,delayed release tamsulosin 0.4 mg capsule 0.4 mg PO BEDTIME #30 cap 10/05/21 oxycodone 5 mg tablet 1 tab PO BID PRN #30 tab 10/06/21 pregabalin 100 mg capsule 100 mg PO DAILY #30 cap 10/06/21 pregabalin 200 mg capsule 200 mg PO BEDTIME #30 cap 10/06/21 Allergies Allergy/AdvReac Type Severity Reaction Status Date / Time ibuprofen [From MOTRIN] Allergy Unknown UPSET Verified 09/24/21 13:23 STOMACH Review of Systems 2 Review of Systems: Constitutional: No Fever, No Chills No Fatigue, No Malaise Cardiovascular: No Chest Pain, No SOB Respiratory: No Cough, No Sputum, No Dyspnea Gastrointestinal: No Nausea, No Vomiting, No Abdominal pain Musculoskeletal: No joint pain, No Myalgias, No Joint Swelling Skin: + Skin Lesions, No rash History limited from patient's acute mental status Yes all other systems are reviewed and are negative [facility] Past Medical History Attestation statement: The following information was validated with the patient. Medical History Anemia in chronic kidney disease Anxiety Asthma Depression Diabetes mellitus Diabetic neuropathy Dysphagia Fibromyalgia GERD (gastroesophageal reflux disease) Hiatal hernia HTN (hypertension) Hx of gastritis Hypercholesterolemia Hypothyroidism IBS (irritable bowel syndrome) Mini stroke Mononeuritis On beta jeannie at home Osteoarthritis Osteoporosis PAD (peripheral artery disease) Vitamin B 12 deficiency Surgical History H/O local excision of skin lesion History of ankle surgery History of back surgery History of esophagogastroduodenoscopy (EGD) History of open reduction and internal fixation (ORIF) procedure Hx of hysterectomy Family History Family History Sister Diabetes Social History Social History Household Members: Family Housing: House Do you presently have visiting nurse or other home services: Yes Unable to assess alcohol history related to: Unknown Alcohol intake: never Patient Tobacco Use Status: Former Tobacco user Quit Date: >20 yr ago e-Cigarette/Vaping Use: Never Used Second Hand Smoke Exposure: No Advance Directives: Yes Advance Directives on File: Yes Advance Directives Date on File: 11/05/20 service: No Current occupational status: disabled 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 Physical Exam ED Vital Signs: Vital Signs - 24 hr 10/08/21 12:45 10/08/21 14:43 Temperature 97.8 F Pulse Rate 112 H 115 H Respiratory Rate 18 14 Blood Pressure 131/53 L 150/89 H Pulse Oximetry 99 98 BMI result Body Mass Index 27.3 Const General: no acute distress, alert, awake and Physically active Orientation/consciousness: oriented to place HENMT Head: Yes normal to inspection and Yes atraumatic Ears: hearing grossly normal bilaterally General nose exam: Normal external nose present Face and sinus: Yes normal facial exam Eyes General: appearance normal, both eyes and all related structures EOM: EOMs intact bilaterally Neck Neck: Yes normal visual inspection and Yes no meningeal signs Resp Effort & Inspection: normal respiratory effort and no respiratory distress Auscultation: clear to auscultation bilaterally Cardio Rate: regular rate Heart sounds: S1 normal heart sound present and S2 normal heart sound present GI Inspection: Yes normal to inspection Palpation (GI): Soft to palpation, nontender, no guarding and not rigid General: Yes no CVA tenderness Back/Spine/Pelvis Back: no CVA tenderness Neuro General: oriented to place, tone normal, moves all extremities and no meningeal signs Extrem Other: Please refer to images above, right BKA with urszula intact, no overlying cellulitis, darkness over suture line, no fluctuance/induration. Left 2nd toe with large ulceration/necrosis. Left great toe with discoloration, lateral ulceration also noted to left 5th toe. NV intact. Course Course Course Narrative: -[id number]--patient with chronic leukocytosis up-trending from discharge, Vanc/Zosyn ordered empirically. H&H stable. Chronic CKD. -hypomagnesemic with a Mag of 1.1 >2g IV repletion ordered. BNP acutely elevated to 218 XR chest 1V IMPRESSION: No acute disease. ? XR foot LT min 3V IMPRESSION: Ulceration about the dorsal aspect of the second distal phalanx without plain film evidence of acute osteomyelitis. >> patient admitted for further management Medical Decision Making [facility] Narrative Medical decision making narrative: 76-year-old female with a PMHx anemia, anxiety, asthma, IDDM, fibromyalgia, GERD, HTN, HLD, hypothyroid, IBS, PAD, recently discharged from our facility on 10/05/2021 s/p sepsis secondary to right foot gangrene s/p right BKA, hospital course complicated by ELLEN and hypernatremia, presenting to ED from SNF for failure to thrive & worsening L foot ulcerations. On exam tachycardic likely from pain, A&O x1, confused, please refer to images above of bilateral LE, c oncern for acute on chronic worsening wounds with osteomyelitis/necrosis. Concern for encephalopathy. Rule out metabolic/infectious etiologies. Low concern for severe sepsis at this time as likely tachycardia from pain Plan: EKG, labs, UA, CXR, foot x-ray, lactic/blood cultures, IVF Medical Records Medical records reviewed: Yes I reviewed the patient's medical records. Lab Data Lab results reviewed: Yes I reviewed the patient's lab results. Result diagrams: 10/08/21 14:08 10/08/21 14:08 Labs: Lab Results 10/08/21 10/08/21 10/08/21 Range/Units 14:08 14:08 14:08 WBC 21.8 H (4.8-10.8) X10*3/uL RBC 3.89 L (4.20-5.50) X10*6/uL Hgb 10.0 L (12.0-16.0) g/dl Hct 31.6 L (37.0-47.0) % MCV 81.2 (80.0-98.0) fL MCH 25.7 L (27.0-33.0) pg MCHC 31.6 (31.0-35.0) g/dl RDW 18.4 H (11.0-16.0) % Plt Count 647 H (160-400) X10*3/uL MPV 9.0 L (9.4-12.3) fL Immature Gran % (Auto) 0.7 H (0.0-0.4) % Neut % (Auto) 84.2 H (45-73) % Lymph % (Auto) 8.6 L (20-40) % Grimes % (Auto) 6.2 (2-11) % Eos % (Auto) 0.2 (0-4) % Baso % (Auto) 0.1 (0-2) % Lymph # (Auto) 1.9 (1.2-4.9) X10*3/uL Grimes # (Auto) 1.4 H (0.1-1.2) X10*3/uL Eos # (Auto) 0.1 (0.0-0.4) X10*3/uL Baso # (Auto) 0.0 (0.0-0.2) X10*3/uL Abs Immat Gran (auto) 0.16 H (0.00-0.03) X10*3/uL Absolute Neuts (auto) 18.3 H (2.0-8.3) x10*3/uL Absolute Nucleated RBC 0.000 (0.0-0.012) X10*3/uL Nucleated RBC % (auto) 0.0 (0.0-0.2) /100WBC ESR (0-20) MM/HR PT 12.8 (9.9-13.0) SEC INR 1.1 (0.9-1.1) Sodium 146 H (135-145) mmol/L Potassium 3.6 (3.3-5.1) mmol/L Chloride 110 H (96-108) mmol/L Carbon Dioxide 24 (22-29) mmol/L Anion Gap 16 (12-20) BUN 16 (9-16) mg/dL Creatinine 2.09 H (0.5-1.4) mg/dL Estim Creat Clear Calc 19.8 Estimated GFR 23 Random Glucose 125 H (60-115) mg/dL Lactic Acid (0.5-2.0) mmol/L Calcium 6.7 L D (8.4-10.2) mg/dL Magnesium 1.1 L* (1.6-2.6) mg/dL Total Bilirubin 0.4 (0.0-1.0) mg/dL Direct Bilirubin 0.2 (0.0-0.5) mg/dL AST 29 D (5-31) U/L ALT 20 (0-31) U/L Alkaline Phosphatase 213 H D (39-117) U/L Ammonia (13-55) umol/L C-Reactive Protein 18.70 H (< or = 0.50) mg/dL B-Natriuretic Peptide (<100) pg/mL Total Protein 5.8 L (6.5-8.0) g/dL Albumin 2.8 L (3.5-5.0) g/dL 10/08/21 10/08/21 10/08/21 Range/Units 14:08 14:08 14:08 WBC (4.8-10.8) X10*3/uL RBC (4.20-5.50) X10*6/uL Hgb (12.0-16.0) g/dl Hct (37.0-47.0) % MCV (80.0-98.0) fL MCH (27.0-33.0) pg MCHC (31.0-35.0) g/dl RDW (11.0-16.0) % Plt Count (160-400) X10*3/uL MPV (9.4-12.3) fL Immature Gran % (Auto) (0.0-0.4) % Neut % (Auto) (45-73) % Lymph % (Auto) (20-40) % Grimes % (Auto) (2-11) % Eos % (Auto) (0-4) % Baso % (Auto) (0-2) % Lymph # (Auto) (1.2-4.9) X10*3/uL Grimes # (Auto) (0.1-1.2) X10*3/uL Eos # (Auto) (0.0-0.4) X10*3/uL Baso # (Auto) (0.0-0.2) X10*3/uL Abs Immat Gran (auto) (0.00-0.03) X10*3/uL Absolute Neuts (auto) (2.0-8.3) x10*3/uL Absolute Nucleated RBC (0.0-0.012) X10*3/uL Nucleated RBC % (auto) (0.0-0.2) /100WBC ESR (0-20) MM/HR PT (9.9-13.0) SEC INR (0.9-1.1) Sodium (135-145) mmol/L Potassium (3.3-5.1) mmol/L Chloride (96-108) mmol/L Carbon Dioxide (22-29) mmol/L Anion Gap (12-20) BUN (9-16) mg/dL Creatinine (0.5-1.4) mg/dL Estim Creat Clear Calc Estimated GFR Random Glucose (60-115) mg/dL Lactic Acid 1.4 (0.5-2.0) mmol/L Calcium (8.4-10.2) mg/dL Magnesium (1.6-2.6) mg/dL Total Bilirubin (0.0-1.0) mg/dL Direct Bilirubin (0.0-0.5) mg/dL AST (5-31) U/L ALT (0-31) U/L Alkaline Phosphatase (39-117) U/L Ammonia 15 (13-55) umol/L C-Reactive Protein (< or = 0.50) mg/dL B-Natriuretic Peptide 218 H (<100) pg/mL Total Protein (6.5-8.0) g/dL Albumin (3.5-5.0) g/dL 10/08/21 Range/Units 14:08 WBC (4.8-10.8) X10*3/uL RBC (4.20-5.50) X10*6/uL Hgb (12.0-16.0) g/dl Hct (37.0-47.0) % MCV (80.0-98.0) fL MCH (27.0-33.0) pg MCHC (31.0-35.0) g/dl RDW (11.0-16.0) % Plt Count (160-400) X10*3/uL MPV (9.4-12.3) fL Immature Gran % (Auto) (0.0-0.4) % Neut % (Auto) (45-73) % Lymph % (Auto) (20-40) % Grimes % (Auto) (2-11) % Eos % (Auto) (0-4) % Baso % (Auto) (0-2) % Lymph # (Auto) (1.2-4.9) X10*3/uL Grimes # (Auto) (0.1-1.2) X10*3/uL Eos # (Auto) (0.0-0.4) X10*3/uL Baso # (Auto) (0.0-0.2) X10*3/uL Abs Immat Gran (auto) (0.00-0.03) X10*3/uL Absolute Neuts (auto) (2.0-8.3) x10*3/uL Absolute Nucleated RBC (0.0-0.012) X10*3/uL Nucleated RBC % (auto) (0.0-0.2) /100WBC ESR 95 H (0-20) MM/HR PT (9.9-13.0) SEC INR (0.9-1.1) Sodium (135-145) mmol/L Potassium (3.3-5.1) mmol/L Chloride (96-108) mmol/L Carbon Dioxide (22-29) mmol/L Anion Gap (12-20) BUN (9-16) mg/dL Creatinine (0.5-1.4) mg/dL Estim Creat Clear Calc Estimated GFR Random Glucose (60-115) mg/dL Lactic Acid (0.5-2.0) mmol/L Calcium (8.4-10.2) mg/dL Magnesium (1.6-2.6) mg/dL Total Bilirubin (0.0-1.0) mg/dL Direct Bilirubin (0.0-0.5) mg/dL AST (5-31) U/L ALT (0-31) U/L Alkaline Phosphatase (39-117) U/L Ammonia (13-55) umol/L C-Reactive Protein (< or = 0.50) mg/dL B-Natriuretic Peptide (<100) pg/mL Total Protein (6.5-8.0) g/dL Albumin (3.5-5.0) g/dL Discharge Plan Discharge Clinical Impression: Adult failure to thrive, Hypomagnesemia, Toe necrosis Patient Disposition: Admitted As Inpatient
[2021-10-08 14:15] LABS: MANUAL DIFF FLAG NO
[2021-10-08 14:16] LABS: Basophils Percent Auto 0.1 % (0-2); Eosinophils Absolute Auto 0.1 X10*3/uL (0.0-0.4); Eosinophils Percent Auto 0.2 % (0-4); Hematocrit 31.6 % (37.0-47.0); Imm Gran Abs Auto 0.16 X10*3/uL (0.00-0.03); Imm Gran Pct Auto 0.7 % (0.0-0.4); Lymphocytes Absolute Auto 1.9 X10*3/uL (1.2-4.9); Lymphocytes Percent Auto 8.6 % (20-40); Mean Corpuscular HGB Conc 31.6 g/dl (31.0-35.0); Mean Corpuscular Hemoglobin 25.7 pg (27.0-33.0); Mean Corpuscular Volume 81.2 fL (80.0-98.0); Monocytes Absolute Auto 1.4 X10*3/uL (0.1-1.2); Monocytes Percent Auto 6.2 % (2-11); Neutrophils Absolute Auto 18.3 x10*3/uL (2.0-8.3); Neutrophils Percent Auto 84.2 % (45-73); Platelet Count 647 X10*3/uL (160-400); Red Blood Count 3.89 X10*6/uL (4.20-5.50); Red Cell Distribution Width 18.4 % (11.0-16.0); White Blood Count 21.8 X10*3/uL (4.8-10.8)
[2021-10-08 14:21] LABS: INTERNATIONAL NORM RATIO 1.1 (0.9-1.1); Prothrombin Time 12.8 SEC (9.9-13.0)
[2021-10-08 14:24] LABS: Ammonia 15 umol/L (13-55)
[2021-10-08 14:27] LABS: Lactic Acid 1.4 mmol/L (0.5-2.0)
[2021-10-08 14:35] LABS: Alanine Aminotransferase 20 U/L (0-31); Albumin Level 2.8 g/dL (3.5-5.0); Alkaline Phosphatase 213 U/L (39-117); Anion Gap 16 (12-20); Aspartate Amino Transferase 29 U/L (5-31); Bilirubin Direct 0.2 mg/dL (0.0-0.5); Bilirubin Total 0.4 mg/dL (0.0-1.0); Blood Urea Nitrogen 16 mg/dL (9-16); Calcium 6.7 mg/dL (8.4-10.2); Carbon Dioxide 24 mmol/L (22-29); Chloride 110 mmol/L (96-108); Creatinine Clr Calc Pharmacy 19.8; Estimated Glomerular Filt Rate 23; Glucose Random 125 mg/dL (60-115); Magnesium 1.1 mg/dL (1.6-2.6); Potassium 3.6 mmol/L (3.3-5.1); Sodium 146 mmol/L (135-145); Total Protein 5.8 g/dL (6.5-8.0)
[2021-10-08 14:36] LABS: B Type Natriuretic Peptide 218 pg/mL (<100)
[2021-10-08 14:43] VITALS: BP 150/89; PULSE 115; RESP 14; O2SAT 98
--- NOTE | 2021-10-08 15:28 | P.HPHOSP_ITS ---
History of Present Illness Date of Service: 10/08/21 Chief Complaint: failure to thrive, hypernatremia a 76 years old lady with PMH of type 2 diabetes, asthma, HTN, HLD, PAD post below-knee amputation RLE who presents to the hospital from facility for decreased oral intake, weakness and confusion. According to [place] caregiver the patient has been refusing food, medication and water into rehab as she was complaining of significant pain and kept asking for the pain medications. She reports that she is having pain at the stump area and her back. The noticed worsening left foot ischemic changes specially on the 2nd toe. She denies any fever, chills, abdominal pain, shortness of breath, nausea or vom iting or change in bowel habit. No urinary symptoms. Found to have hypernatremia and hypomagnesemia. Admitted for further evaluation and treatment. Review of Systems Review of Systems: No fever, chills But complaining of pain in the stump area and decreased appetite No chest pain, palpitation No shortness of breath or coughing No abdominal pain, nausea or vomiting No urinary symptoms No any rash or wounds Yes all other systems are reviewed and are negative [facility] Medical History Anemia in chronic kidney disease Anxiety Asthma Depression Diabetes mellitus Diabetic neuropathy Dysphagia Fibromyalgia GERD (gastroesophageal reflux disease) Hiatal hernia HTN (hypertension) Hx of gastritis Hypercholesterolemia Hypothyroidism IBS (irritable bowel syndrome) Mini stroke Mononeuritis On beta jeannie at home Osteoarthritis Osteoporosis PAD (peripheral artery disease) Vitamin B 12 deficiency Family History Sister Diabetes Surgical History H/O local excision of skin lesion History of ankle surgery History of back surgery History of esophagogastroduodenoscopy (EGD) History of open reduction and internal fixation (ORIF) procedure Hx of hysterectomy Social History Household Members: Family Housing: House Do you presently have visiting nurse or other home services: Yes Unable to assess alcohol history related to: Unknown Alcohol intake: never Patient Tobacco Use Status: Former Tobacco user Quit Date: >20 yr ago e-Cigarette/Vaping Use: Never Used Second Hand Smoke Exposure: No Advance Directives: Yes Advance Directives on File: Yes Advance Directives Date on File: 11/05/20 service: No Current occupational status: disabled 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 Meds Allergies Allergy/AdvReac Type Severity Reaction Status Date / Time ibuprofen [From MOTRIN] Allergy Unknown UPSET Verified 09/24/21 13:23 STOMACH Active Medications: Current Medications Aspirin (Aspirin 81 Mg Tab.Chew) 81 mg PO DAILY [facility] Atorvastatin Calcium (Atorvastatin Calcium 80 Mg Tablet) 80 mg PO DAILY [facility] Diltiazem HCl (Diltiazem Hcl Cd 180 Mg Cap.Er.24h) 360 mg PO DAILY [facility]; Protocol Ferrous Sulfate (Ferrous Sulfate 324 Mg Tablet.) 324 mg PO BIDWM [facility] Magnesium Sulfate (Magnesium Sulfate/H2o) 2 gm in 50 mls @ 25 mls/hr IV ONCE ONE Stop: 10/08/21 16:47 Vancomycin HCl 1,250 mg/ (Sodium Chloride) 250 mls @ 166.667 mls/hr IV ONCE ONE Stop: 10/08/21 16:44 Insulin Glargine (Insulin Glargine,Hum.Rec.Anlog 100 Unit/Ml 10 Ml Vial) 15 unit SUBCUT BEDTIME [facility] Levothyroxine Sodium (Levothyroxine Sodium 100 Mcg Tablet) 100 mcg PO DAILY@0600 [facility] Melatonin (Melatonin 3 Mg Tablet) 6 mg PO BEDTIME [facility] Metoprolol Succinate (Metoprolol Succinate Er 100 Mg Tab.Er.24h) 100 mg PO DAILY [facility]; Protocol Omeprazole (Omeprazole 20 Mg Capsule.) 20 mg PO DAILY@0630 [facility] Pharmacy Consult (Consult Rx Perform Med Rec) 1 each MISCELLANE ONCE PRN PRN Reason: Consult order Pharmacy Consult (Consult Rx Vancomycin Dosing) 1 each MISCELLANE DAILY PRN PRN Reason: Consult order Pregabalin (Pregabalin 100 Mg Capsule) 100 mg PO DAILY [facility] Pregabalin (Pregabalin 200 Mg Capsule) 200 mg PO BEDTIME [facility] Sitagliptin Phosphate (Sitagliptin Phosphate 100 Mg Tablet) 100 mg PO DAILY [facility] Tamsulosin HCl (Tamsulosin Hcl 0.4 Mg Capsule) 0.4 mg PO BEDTIME [facility] Trazodone HCl (Trazodone Hcl 50 Mg Tablet) 50 mg PO BEDTIME [facility] Home Medications Medication Instructions Recorded Confirmed Last Taken Type citalopram 20 mg tablet 20 mg PO DAILY 05/23/20 10/08/21 08/11/21 History diltiazem HCl 360 mg capsule,24 360 mg PO DAILY 05/23/20 10/08/21 08/11/21 History hr,extended release levothyroxine 100 mcg tablet 100 mcg PO DAILY@0600 05/23/20 10/08/21 08/11/21 History metoprolol succinate 100 mg 100 mg PO DAILY 05/23/20 10/08/21 08/11/21 History tablet,extended release 24 hr sitagliptin 100 mg tablet 100 mg PO DAILY 05/23/20 10/08/21 08/11/21 History trazodone 50 mg tablet 50 mg PO BEDTIME 05/23/20 10/08/21 08/11/21 History atorvastatin 80 mg tablet 1 tab PO DAILY 08/12/21 10/08/21 08/11/21 History denosumab 60 mg/mL subcutaneous 60 mg SUBCUT [id number] 08/12/21 10/08/21 Unknown History syringe (Prolia) insulin glargine 100 unit/mL (3 15 unit SUBCUT BEDTIME 08/12/21 10/08/21 Unknown History mL) subcutaneous pen (Lantus Solostar U-100 Insulin) melatonin 5 mg tablet 10 mg PO BEDTIME 08/12/21 10/08/21 08/11/21 History omeprazole 20 mg capsule,delayed 20 mg PO DAILY@0630 09/24/21 10/08/21 Unknown History release aspirin 81 mg chewable tablet 81 mg PO DAILY 10/08/21 10/08/21 Unknown History Physical Exam Vital Signs and Narrative: Vital Signs: Last Vital Signs Temp 97.8 F 10/08/21 12:45 Pulse 115 H 10/08/21 14:43 Resp 14 10/08/21 14:43 BP 150/89 H 10/08/21 14:43 Pulse Ox 98 10/08/21 14:43 BMI result Body Mass Index 27.3 Const: Other: Constitutional :? Alert, interactive , mildly confused and little bit an xious Neck : Sophie l inspection, Supp le Cardiovascular : RRR, S1 S2, no l ower extremity jeimy ma Respiratory : G ood bilateral air entry,? no crackle s, wheezes or rhon chi Gastrointestin al:? soft, lax, No rmal bowel sounds, Non tender Skin : ? Below-knee amput ation, wound looks clean with no jamari thema or bleeding but very sensitive and tender to sima ch. chronic foot u lcer in the left f oot with worsening blackish discolor ation of the 2nd t oe. Neurological : Alert & oriented to self but not to place, mildly con fused No focal def icit Extrem: Other: Please refer to images above, right BKA with urszula intact, no overlying cellulitis, darkness over suture line, no fluctuance/induration. Left 2nd toe with large ulceration/necrosis. Left great toe with discoloration, lateral ulceration also noted to left 5th toe. NV intact. Results Labs CBC and Chem 7: 10/08/21 14:08 10/08/21 14:08 Labs: Laboratory Results - last 24 hr 10/08/21 10/08/21 10/08/21 14:08 14:08 14:08 MCV 81.2 MCH 25.7 L MCHC 31.6 RDW 18.4 H Plt Count 647 H MPV 9.0 L Immature Gran % (Auto) 0.7 H Neut % (Auto) 84.2 H Lymph % (Auto) 8.6 L [place] % (Auto) 6.2 Eos % (Auto) 0.2 Baso % (Auto) 0.1 Lymph # (Auto) 1.9 [place] # (Auto) 1.4 H Eos # (Auto) 0.1 Baso # (Auto) 0.0 Abs Immat Gran (auto) 0.16 H Absolute Neuts (auto) 18.3 H Absolute Nucleated RBC 0.000 Nucleated RBC % (auto) 0.0 PT 12.8 INR 1.1 Anion Gap 16 Estim Creat Clear Calc 19.8 Estimated GFR 23 Random Glucose 125 H Lactic Acid Calcium 6.7 L D Magnesium 1.1 L* Total Bilirubin 0.4 Direct Bilirubin 0.2 AST 29 D ALT 20 Alkaline Phosphatase 213 H D Ammonia B-Natriuretic Peptide Total Protein 5.8 L Albumin 2.8 L 10/08/21 10/08/21 10/08/21 14:08 14:08 14:08 MCV MCH MCHC RDW Plt Count MPV Immature Gran % (Auto) Neut % (Auto) Lymph % (Auto) [place] % (Auto) Eos % (Auto) Baso % (Auto) Lymph # (Auto) [place] # (Auto) Eos # (Auto) Baso # (Auto) Abs Immat Gran (auto) Absolute Neuts (auto) Absolute Nucleated RBC Nucleated RBC % (auto) PT INR Anion Gap Estim Creat Clear Calc Estimated GFR Random Glucose Lactic Acid 1.4 Calcium Magnesium Total Bilirubin Direct Bilirubin AST ALT Alkaline Phosphatase Ammonia 15 B-Natriuretic Peptide 218 H Total Protein Albumin Imaging Radiologist's Impressions: Impressions Chest X-Ray 10/08/21 14:20 IMPRESSION: No acute disease. Foot X-Ray 10/08/21 14:20 IMPRESSION: Ulceration about the dorsal aspect of the second distal phalanx without plain film evidence of acute osteomyelitis. Assessment and Plan (1) Amputation stump pain: Status: Acute (2) Adult failure to thrive: Status: Acute (3) Hypomagnesemia: Status: Acute (4) Dry gangrene: Status: Acute (5) Chronic foot ulcer: Status: Acute Plan a 76 years old lady with PMH of type 2 diabetes, asthma, HTN, HLD, PAD post below-knee amputation RLE who presents to the hospital from facility for decr eased oral intake, weakness and confusion. Decreased oral intake, FTT in adult Secondary to general deconditioning, confusion, pain Start diet with supplements To do physical therapy Controlled pain Stump pain Post amputation Start p.o. oxycodone Get surgical evaluation Left foot ulcer, dry gangrene Second toe dry gangrene The surgical team evaluation No signs of infection, hold antibiotics for now Hypernatremia Sodium 146, secondary to decreased p.o. intake Start gentle hydration with D5 Follow BMP Hypomagnesemia Mg of 1.1 Received supplement, follow mg Type 2 diabetes Insulin diabetic diet Hypertension continue Cardizem, lisinopril and metoprolol Neuropathy continue pregabalin PVD continue aspirin and atorvastatin DVT PPX Lovenox Quality Stroke Does the patient have a stroke diagnosis?: No VTE Prior VTE?: No VTE Risk Level:: Medical - moderate - high VTE Device Contraindication: Treatment Not Indicated VTE Drug Contraindication: N/A - Med Ordered
[2021-10-08 15:56] LABS: Erythrocyte Sedimentation Rate 95 MM/HR (0-20)
--- NOTE | 2021-10-08 15:56 | PM.CNGS ---
History of Present Illness Consult details Consult date: 10/08/21 Narrative: 76-year-old female patient with prior history of peripheral vascular disease and diabetes, status post right below-knee amputation by Dr. Ravi on 09/28/2021. Patient recently discharged from the hospital on 10/05/2021 and returns today to the emergency department for failure to thrive. Patient apparently is refusing all p.o. intake at the nursing facility. Patient was found to have increasing necrosis of her left foot at the toes. There has been no apparent nausea, vomiting, fever, or chills. The toes are dry without discharge or bleeding. Patient is apparently having significant amount of pain from both the stump and the left foot. In the emergency department revealed an elevated WBC of 21.8. Review of Systems Review of Systems: Yes Unobtainable due to mental status Neurologic: Reports confusion Psychiatric: Psychiatric: Reports confusion [facility] Past Medical History Medical History Anemia in chronic kidney disease Anxiety Asthma Depression Diabetes mellitus Diabetic neuropathy Dysphagia Fibromyalgia GERD (gastroesophageal reflux disease) Hiatal hernia HTN (hypertension) Hx of gastritis Hypercholesterolemia Hypothyroidism IBS (irritable bowel syndrome) Mini stroke Mononeuritis On beta jeannie at home Osteoarthritis Osteoporosis PAD (peripheral artery disease) Vitamin B 12 deficiency Family History Family History Sister Diabetes Surgical History Surgical History H/O local excision of skin lesion History of ankle surgery History of back surgery History of esophagogastroduodenoscopy (EGD) History of open reduction and internal fixation (ORIF) procedure Hx of hysterectomy Social History Social History Household Members: Family Housing: House Do you presently have visiting nurse or other home services: Yes Unable to assess alcohol history related to: Unknown Alcohol intake: never Patient Tobacco Use Status: Former Tobacco user Quit Date: >20 yr ago e-Cigarette/Vaping Use: Never Used Second Hand Smoke Exposure: No Advance Directives: Yes Advance Directives on File: Yes Advance Directives Date on File: 11/05/20 service: No Current occupational status: disabled 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 Meds Allergies Allergy/AdvReac Type Severity Reaction Status Date / Time ibuprofen [From MOTRIN] Allergy Unknown UPSET Verified 09/24/21 13:23 STOMACH Active Medications: Current Medications Acetaminophen (Acetaminophen 325 Mg Tablet) 650 mg PO QSHIFT [facility] Aspirin (Aspirin 81 Mg Tab.Chew) 81 mg PO DAILY [facility] Atorvastatin Calcium (Atorvastatin Calcium 80 Mg Tablet) 80 mg PO DAILY [facility] Diltiazem HCl (Diltiazem Hcl Cd 180 Mg Cap.Er.24h) 360 mg PO DAILY [facility]; Protocol Enoxaparin Sodium (Enoxaparin Sodium 40 Mg/0.4 Ml Syringe) 40 mg SUBCUT Q24H [facility] Ferrous Sulfate (Ferrous Sulfate 324 Mg Tablet.) 324 mg PO BIDWM [facility] Magnesium Sulfate (Magnesium Sulfate/H2o) 2 gm in 50 mls @ 25 mls/hr IV ONCE ONE Stop: 10/08/21 16:47 Vancomycin HCl 1,250 mg/ (Sodium Chloride) 250 mls @ 166.667 mls/hr IV ONCE ONE Stop: 10/08/21 16:44 Dextrose/Sodium Chloride (D51/2ns) 1,000 mls @ 100 mls/hr IVCONT .Q10H [facility] Stop: 10/09/21 11:29 Insulin Glargine (Insulin Glargine,Hum.Rec.Anlog 100 Unit/Ml 10 Ml Vial) 15 unit SUBCUT BEDTIME [facility] Insulin Human Lispro (Insulin Lispro 100 Unit/Ml 3 Ml Vial) 0 unit SUBCUT QIDACHS [facility]; Protocol Levothyroxine Sodium (Levothyroxine Sodium 100 Mcg Tablet) 100 mcg PO DAILY@0600 [facility] Melatonin (Melatonin 3 Mg Tablet) 6 mg PO BEDTIME [facility] Metoprolol Succinate (Metoprolol Succinate Er 100 Mg Tab.Er.24h) 100 mg PO DAILY [facility]; Protocol Omeprazole (Omeprazole 20 Mg Capsule.) 20 mg PO DAILY@0630 [facility] Ondansetron HCl (Ondansetron Hcl 4 Mg/2 Ml Vial) 4 mg IVPUSH Q8H PRN PRN Reason: Nausea and Vomiting Oxycodone HCl (Oxycodone Hcl Immed Release 5 Mg Tablet) 5 mg PO Q6H PRN PRN Reason: Pain, Severe (Pain Scale 7-10) Pharmacy Consult (Consult Rx Perform Med Rec) 1 each MISCELLANE ONCE PRN PRN Reason: Consult order Pharmacy Consult (Consult Rx Vancomycin Dosing) 1 each MISCELLANE DAILY PRN PRN Reason: Consult order Pregabalin (Pregabalin 100 Mg Capsule) 100 mg PO DAILY [facility] Pregabalin (Pregabalin 200 Mg Capsule) 200 mg PO BEDTIME [facility] Sitagliptin Phosphate (Sitagliptin Phosphate 100 Mg Tablet) 100 mg PO DAILY [facility] Sodium Chloride (0.9 % Sodium Chloride Flush 3 Ml Syringe) 3 ml IVFLUSH QSHIFT [facility] Tamsulosin HCl (Tamsulosin Hcl 0.4 Mg Capsule) 0.4 mg PO BEDTIME [facility] Trazodone HCl (Trazodone Hcl 50 Mg Tablet) 50 mg PO BEDTIME [facility] Home Medications Medication Instructions Recorded Confirmed Last Taken Type citalopram 20 mg tablet 20 mg PO DAILY 05/23/20 10/08/21 08/11/21 History diltiazem HCl 360 mg capsule,24 360 mg PO DAILY 05/23/20 10/08/21 08/11/21 History hr,extended release levothyroxine 100 mcg tablet 100 mcg PO DAILY@0600 05/23/20 10/08/21 08/11/21 History metoprolol succinate 100 mg 100 mg PO DAILY 05/23/20 10/08/21 08/11/21 History tablet,extended release 24 hr sitagliptin 100 mg tablet 100 mg PO DAILY 05/23/20 10/08/21 08/11/21 History trazodone 50 mg tablet 50 mg PO BEDTIME 05/23/20 10/08/21 08/11/21 History atorvastatin 80 mg tablet 1 tab PO DAILY 08/12/21 10/08/21 08/11/21 History denosumab 60 mg/mL subcutaneous 60 mg SUBCUT [id number] 08/12/21 10/08/21 Unknown History syringe (Prolia) insulin glargine 100 unit/mL (3 15 unit SUBCUT BEDTIME 08/12/21 10/08/21 Unknown History mL) subcutaneous pen (Lantus Solostar U-100 Insulin) melatonin 5 mg tablet 10 mg PO BEDTIME 08/12/21 10/08/21 08/11/21 History omeprazole 20 mg capsule,delayed 20 mg PO DAILY@0630 09/24/21 10/08/21 Unknown History release aspirin 81 mg chewable tablet 81 mg PO DAILY 10/08/21 10/08/21 Unknown History Physical Exam Vital Signs: Vital Signs: Last Vital Signs Temp 97.8 F 10/08/21 12:45 Pulse 115 H 10/08/21 14:43 Resp 14 10/08/21 14:43 BP 150/89 H 10/08/21 14:43 Pulse Ox 98 10/08/21 14:43 BMI result Body Mass Index 27.3 Const: General: comfortable, no acute distress and confusion Nutritional Appearance: average body habitus Orientation/consciousness: confusion HENMT: Head: Yes normocephalic and Yes atraumatic Resp: Effort & Inspection: normal respiratory effort, no audible wheezes, no cough and no respiratory distress Skin: Other: Warm, dry, no rash Neuro: General: confusion Extrem: Other: Right leg: Severe contracture at the knee and hip. Incision is intact with in situ sutures. No surrounding erythema is appreciated. There is ulceration at the popliteal fossa from the severe contracture. No underlying abscess is appreciated. Left foot: Dry skin necrosis involving the 2nd toe and the tip of the great toe with no significant erythema and no fluctuance. No evidence of an abscess or cellulitis. Results Labs Result diagrams: 10/08/21 14:08 10/08/21 14:08 Labs: Abnormal lab results 10/08/21 10/08/21 10/08/21 Range/Units 14:08 14:08 14:08 WBC 21.8 H (4.8-10.8) X10*3/uL RBC 3.89 L (4.20-5.50) X10*6/uL Hgb 10.0 L (12.0-16.0) g/dl Hct 31.6 L (37.0-47.0) % MCH 25.7 L (27.0-33.0) pg RDW 18.4 H (11.0-16.0) % Plt Count 647 H (160-400) X10*3/uL MPV 9.0 L (9.4-12.3) fL Immature Gran % (Auto) 0.7 H (0.0-0.4) % Neut % (Auto) 84.2 H (45-73) % Lymph % (Auto) 8.6 L (20-40) % [place] # (Auto) 1.4 H (0.1-1.2) X10*3/uL Abs Immat Gran (auto) 0.16 H (0.00-0.03) X10*3/uL Absolute Neuts (auto) 18.3 H (2.0-8.3) x10*3/uL Sodium 146 H (135-145) mmol/L Chloride 110 H (96-108) mmol/L Creatinine 2.09 H (0.5-1.4) mg/dL Random Glucose 125 H (60-115) mg/dL Calcium 6.7 L D (8.4-10.2) mg/dL Magnesium 1.1 L* (1.6-2.6) mg/dL Alkaline Phosphatase 213 H D (39-117) U/L C-Reactive Protein 18.70 H (< or = 0.50) mg/dL B-Natriuretic Peptide 218 H (<100) pg/mL Total Protein 5.8 L (6.5-8.0) g/dL Albumin 2.8 L (3.5-5.0) g/dL Short CBC 10/08/21 Range/Units 14:08 WBC 21.8 H (4.8-10.8) X10*3/uL Hgb 10.0 L (12.0-16.0) g/dl Hct 31.6 L (37.0-47.0) % Plt Count 647 H (160-400) X10*3/uL BMP 10/08/21 14:08 Sodium 146 H Potassium 3.6 Chloride 110 H Carbon Dioxide 24 BUN 16 Creatinine 2.09 H Calcium 6.7 L D Liver Function 10/08/21 Range/Units 14:08 Total Bilirubin 0.4 (0.0-1.0) mg/dL Direct Bilirubin 0.2 (0.0-0.5) mg/dL AST 29 D (5-31) U/L ALT 20 (0-31) U/L Alkaline Phosphatase 213 H D (39-117) U/L Albumin 2.8 L (3.5-5.0) g/dL All other labs normal. Assessment and Plan (1) Amputation stump pain: Status: Acute (2) Toe necrosis: Status: Acute Plan 76-year-old female patient with multiple medical problems including diabetes and peripheral vascular disease returning from nursing facility with complaints of foot pain and stump pain. She is status post right leg below-knee amputation performed by Dr. Ravi. Patient now has a severe contracture at the right leg with resulting skin breakdown at the popliteal fossa crease. Suture line is otherwise intact with no evidence of an abscess. Left foot also has an area of skin necrosis involving the 2nd toe and a small portion of the great toe. No definite abscess is identified. The left foot wounds are dry without surrounding erythema or discharge. Physical therapy to the right leg with would normally be helpful although I am not certain that she will be able to participate in the therapy. Another option is a knee immobilizer although this also may cause skin breakdown. I will follow along during her hospitalization in Dr. Ravi's absence. Procedures Date of Service Date of Service: 10/08/21
[2021-10-08] MEDS: Piperacillin Sodium/Tazobactam 3.375 GM in 0.9 % Sodium Chloride 50 ML IV (16:21)
[2021-10-08] MEDS: 0.9 % Sodium Chloride 1,000 ML 999 ML IV (16:21)
[2021-10-08] MEDS: Magnesium Sulfate/H2O 2 GM/50 ML PIGGYBACK IV (17:07)
[2021-10-08] MEDS: vancomycin HCL 1,250 MG in 0.9 % Sodium Chloride 250 ML 166.67 MG IV (17:17)
[2021-10-08] MEDS: Morphine Sulfate 2 MG/ML CARTRIDGE IVPUSH (17:32)
[2021-10-08] MEDS: Acetaminophen 325 MG TABLET 650 MG PO (17:33)
[2021-10-08] MEDS: Ferrous Sulfate 324 MG TABLET.DR PO (17:34)
[2021-10-08 21:19] VITALS: BP 157/71; PULSE 98; RESP 16
[2021-10-08] MEDS: Dextrose 5 % and 0.45 % NaCl 1,000 ML 100 ML IVCONT (21:22)
[2021-10-08 21:23] VITALS: BP 157/71; PULSE 98; RESP 16
--- NOTE | 2021-10-08 21:24 | PC.NURSE ---
no insulin coverage given by prev shift blood sugar below 150
[2021-10-08 21:51] VITALS: BP 156/75
[2021-10-08] MEDS: traZODone HCL 50 MG TABLET PO (22:05)
[2021-10-08] MEDS: Pregabalin 200 MG CAPSULE PO (22:05)
[2021-10-08] MEDS: Melatonin 3 MG TABLET 6 MG PO (22:06)
[2021-10-08] MEDS: Tamsulosin HCL 0.4 MG CAPSULE PO (22:06)
[2021-10-08 22:11] LABS: COVID-19 Test Negative (Negative)
[2021-10-08 22:17] LABS: Glucose, Whole Blood 76 mg/dL (60-115)
[2021-10-09] VITALS (7 sets, daily range): BP systolic 88–155; BP diastolic 43–116; PULSE 65–114; RESP 14–16; TEMP 35.8–36.6; O2SAT 94–100
[2021-10-09] MEDS: Omeprazole 20 MG CAPSULE.DR PO (06:40)
[2021-10-09] MEDS: Levothyroxine Sodium 100 MCG TABLET PO (06:40)
[2021-10-09 06:47] LABS: Hemoglobin 9.6 g/dl (12.0-16.0); Mean Corpuscular Hemoglobin 25.8 pg (27.0-33.0); Mean Corpuscular Volume 83.3 fL (80.0-98.0); Platelet Count 520 X10*3/uL (160-400); Red Blood Count 3.72 X10*6/uL (4.20-5.50); Red Cell Distribution Width 18.3 % (11.0-16.0); White Blood Count 18.6 X10*3/uL (4.8-10.8)
[2021-10-09 08:09] LABS: Glucose, Whole Blood 169 mg/dL (60-115)
[2021-10-09 08:22] LABS: Anion Gap 15 (12-20); Blood Urea Nitrogen 15 mg/dL (9-16); Calcium 5.9 mg/dL (8.4-10.2); Carbon Dioxide 18 mmol/L (22-29); Chloride 114 mmol/L (96-108); Creatinine Clr Calc Pharmacy 22.2; Estimated Glomerular Filt Rate 26; Glucose Random 189 mg/dL (60-115); Magnesium 1.4 mg/dL (1.6-2.6); Potassium 4.2 mmol/L (3.3-5.1); Sodium 143 mmol/L (135-145)
[2021-10-09 09:06] LABS: Alanine Aminotransferase 14 U/L (0-31); Albumin Level 2.2 g/dL (3.5-5.0); Alkaline Phosphatase 170 U/L (39-117); Aspartate Amino Transferase 25 U/L (5-31); Bilirubin Direct < 0.2 mg/dL (0.0-0.5); Bilirubin Total 0.3 mg/dL (0.0-1.0)
[2021-10-09] MEDS: Atorvastatin Calcium 80 MG TABLET PO (09:07)
[2021-10-09] MEDS: Acetaminophen 325 MG TABLET 650 MG PO (09:07)
[2021-10-09] MEDS: Pregabalin 100 MG CAPSULE PO (09:07)
[2021-10-09] MEDS: Ferrous Sulfate 324 MG TABLET.DR PO (09:08)
[2021-10-09] MEDS: Insulin Lispro 100 UNIT/ML 3 ML VIAL SUBCUT (09:08)
[2021-10-09] MEDS: dilTIAZem HCL CD 180 MG CAP.ER.24H 360 MG PO (09:08)
[2021-10-09] MEDS: Metoprolol Succinate ER 100 MG TAB.ER.24H PO (09:08)
[2021-10-09] MEDS: Aspirin 81 MG TAB.CHEW PO (09:08)
[2021-10-09 09:25] LABS: Vitamin D 25-OH Total 16.9 ng/mL (>30)
[2021-10-09] MEDS: Calcium Gluconate/NaCl,Iso-Osm 2 GM/100 ML PLAST..BAG IV (09:26)
[2021-10-09] MEDS: Magnesium Sulfate/H2O 2 GM/50 ML PIGGYBACK IV (09:27)
--- NOTE | 2021-10-09 09:36 | P.CDIC_ITS ---
[facility]I Concurrent Query Documentation Clarification: PHYSICIAN'S DOCUMENTATION REQUEST Date of Query: 10/09/21 0936 Patient Name: Mikal Canela Admit Date: 10/08/21 Dear Doctor, A review of the medical record indicates additional documentation may be needed. Please review below and update the documentation accordingly. Clinical Indicators: Risk Factors/Clinical Indicators/Treatments ED: 10/08 - Confusion, general deconditioning, weakness, acute on chronically confused, refusing everything, food, water, medication except opiates, failure to thrive. Evaluation - concerning for encephalopathy. Based on the above, please further specify, in the Progress Notes, the known or suspected type of the documented encephalopathy: * Metabolic * Toxic * Toxic metabolic * Due to a specified condition (such as UTI, hyponatremia, CVA, etc.) * Other (please specify) * Unable to determine Use of terms such as suspected, likely, concern for, or probable (associated with a specific diagnosis that is being evaluated, monitored, or treated as if it exists) are acceptable and can be coded in the inpatient setting, when documented at the time of discharge. Thank you, Mari Duke [facility], [facility] Extension: [phone] Please use your independent medical judgment in providing your response. THIS QUERY IS PART OF THE PERMANENT MEDICAL RECORD Provider Response: Other Other Diagnosis: Toxic metabolic encephalopathy secondary to dementia and medications
--- NOTE | 2021-10-09 11:30 | P.PNIM_ITS ---
Subjective Subjective Date of Service: 10/09/21 Interval History: The patient was seen and evaluated this morning Laying in bed, difficult to arouse in the morning, partially confused Reporting pain in the stump Denies any fever, chills or shortness of breath No reported other overnight events. Review of Systems No fever, chills But complaining of pain in the stump area and decreased appetite No chest pain, palpitation No shortness of breath or coughing No abdominal pain, nausea or vomiting No urinary symptoms No any rash or wounds Physical Exam Vital Signs: Vital Signs: Last Vital Signs Temp 97.9 F 10/09/21 05:47 Pulse 81 10/09/21 10:36 Resp 14 10/09/21 10:36 BP 108/57 L 10/09/21 10:36 Pulse Ox 100 10/09/21 10:36 BMI result Body Mass Index 27.3 Const: Other: Constitutional :? Alert, interactive , mildly confused and little bit an xious Neck : Sophie l inspection, Supp le Cardiovascular : RRR, S1 S2, no l ower extremity jeimy ma Respiratory : G ood bilateral air entry,? no crackle s, wheezes or rhon chi Gastrointestin al:? soft, lax, No rmal bowel sounds, Non tender Skin : ? Below-knee amput ation, wound looks clean with no jamari thema or bleeding but very sensitive and tender to sima ch. chronic foot u lcer in the left f oot with worsening blackish discolor ation of the 2nd t oe. Neurological : Alert & oriented to self but not to place, mildly con fused No focal def icit Extrem: Other: Please refer to images above, right BKA with urszula intact, no overlying cellulitis, darkness over suture line, no fluctuance/induration. Left 2nd toe with large ulceration/necrosis. Left great toe with discoloration, lateral ulceration also noted to left 5th toe. NV intact. Objective Data Active Medications Acetaminophen (Acetaminophen 325 Mg Tablet) 650 mg PO QSHIFT [facility] Last Admin: 10/09/21 09:07 Dose: 650 mg Documented by: SHON Aspirin (Aspirin 81 Mg Tab.Chew) 81 mg PO DAILY [facility] Last Admin: 10/09/21 09:08 Dose: 81 mg Documented by: SHON Atorvastatin Calcium (Atorvastatin Calcium 80 Mg Tablet) 80 mg PO DAILY [facility] Last Admin: 10/09/21 09:07 Dose: 80 mg Documented by: SHON Diltiazem HCl (Diltiazem Hcl Cd 180 Mg Cap.Er.24h) 360 mg PO DAILY [facility]; Protocol Last Admin: 10/09/21 09:08 Dose: 360 mg Documented by: SHON Enoxaparin Sodium (Enoxaparin Sodium 40 Mg/0.4 Ml Syringe) 40 mg SUBCUT Q24H [facility] Last Admin: 10/08/21 18:19 Dose: Not Given Documented by: BRENNEN Non-Admin Reason: Patient Refused Ferrous Sulfate (Ferrous Sulfate 324 Mg Tablet.) 324 mg PO BIDWM [facility] Last Admin: 10/09/21 09:08 Dose: 324 mg Documented by: SHON Insulin Glargine (Insulin Glargine,Hum.Rec.Anlog 100 Unit/Ml 10 Ml Vial) 15 unit SUBCUT BEDTIME [facility] Last Admin: 10/08/21 22:15 Dose: Not Given Documented by: YEMI Non-Admin Reason: No Insulin Coverage Insulin Human Lispro (Insulin Lispro 100 Unit/Ml 3 Ml Vial) 0 unit SUBCUT QIDACHS [facility]; Protocol Last Admin: 10/09/21 09:08 Dose: 2 unit Documented by: SHON Levothyroxine Sodium (Levothyroxine Sodium 100 Mcg Tablet) 100 mcg PO DAILY@0600 [facility] Last Admin: 10/09/21 06:40 Dose: 100 mcg Documented by: YEMI Melatonin (Melatonin 3 Mg Tablet) 6 mg PO BEDTIME [facility] Last Admin: 10/08/21 22:06 Dose: 6 mg Documented by: YEMI Metoprolol Succinate (Metoprolol Succinate Er 100 Mg Tab.Er.24h) 100 mg PO DAILY [facility]; Protocol Last Admin: 10/09/21 09:08 Dose: 100 mg Documented by: SHON Omeprazole (Omeprazole 20 Mg Capsule.) 20 mg PO DAILY@0630 [facility] Last Admin: 10/09/21 06:40 Dose: 20 mg Documented by: YEMI Ondansetron HCl (Ondansetron Hcl 4 Mg/2 Ml Vial) 4 mg IVPUSH Q8H PRN PRN Reason: Nausea and Vomiting Oxycodone HCl (Oxycodone Hcl Immed Release 5 Mg Tablet) 5 mg PO Q6H PRN PRN Reason: Pain, Severe (Pain Scale 7-10) Pharmacy Consult (Consult Rx Perform Med Rec) 1 each MISCELLANE ONCE PRN PRN Reason: Consult order Pharmacy Consult (Consult Rx Vancomycin Dosing) 1 each MISCELLANE DAILY PRN PRN Reason: Consult order Pregabalin (Pregabalin 100 Mg Capsule) 100 mg PO DAILY [facility] Last Admin: 10/09/21 09:07 Dose: 100 mg Documented by: SHON Pregabalin (Pregabalin 200 Mg Capsule) 200 mg PO BEDTIME [facility] Last Admin: 10/08/21 22:05 Dose: 200 mg Documented by: YEMI Sitagliptin Phosphate (Sitagliptin Phosphate 100 Mg Tablet) 100 mg PO DAILY [facility] Last Admin: 10/09/21 09:36 Dose: Not Given Documented by: SHON Non-Admin Reason: Patient Refused Sodium Chloride (0.9 % Sodium Chloride Flush 3 Ml Syringe) 3 ml IVFLUSH QSHIFT [facility] Last Admin: 10/09/21 08:48 Dose: Not Given Documented by: SHON Non-Admin Reason: IV Running Tamsulosin HCl (Tamsulosin Hcl 0.4 Mg Capsule) 0.4 mg PO BEDTIME [facility] Last Admin: 10/08/21 22:06 Dose: 0.4 mg Documented by: YEMI Trazodone HCl (Trazodone Hcl 50 Mg Tablet) 50 mg PO BEDTIME [facility] Last Admin: 10/08/21 22:05 Dose: 50 mg Documented by: YEMI Labs CBC & Chem 7: 10/09/21 06:15 10/09/21 07:48 Labs: Laboratory Results - last 24 hr 10/08/21 10/08/21 10/08/21 14:08 14:08 14:08 MCV 81.2 MCH 25.7 L MCHC 31.6 RDW 18.4 H Plt Count 647 H MPV 9.0 L Immature Gran % (Auto) 0.7 H Neut % (Auto) 84.2 H Lymph % (Auto) 8.6 L [place] % (Auto) 6.2 Eos % (Auto) 0.2 Baso % (Auto) 0.1 Lymph # (Auto) 1.9 [place] # (Auto) 1.4 H Eos # (Auto) 0.1 Baso # (Auto) 0.0 Abs Immat Gran (auto) 0.16 H Absolute Neuts (auto) 18.3 H Absolute Nucleated RBC 0.000 Nucleated RBC % (auto) 0.0 ESR PT 12.8 INR 1.1 Anion Gap 16 Estim Creat Clear Calc 19.8 Estimated GFR 23 POC Glucose Random Glucose 125 H Lactic Acid Calcium 6.7 L D Magnesium 1.1 L* Total Bilirubin 0.4 Direct Bilirubin 0.2 AST 29 D ALT 20 Alkaline Phosphatase 213 H D Ammonia C-Reactive Protein 18.70 H B-Natriuretic Peptide Total Protein 5.8 L Albumin 2.8 L 25-OH Vitamin D Total COVID-19 (MOHSEN) [email or web address] 10/08/21 10/08/21 10/08/21 14:08 14:08 14:08 MCV MCH MCHC RDW Plt Count MPV Immature Gran % (Auto) Neut % (Auto) Lymph % (Auto) [place] % (Auto) Eos % (Auto) Baso % (Auto) Lymph # (Auto) [place] # (Auto) Eos # (Auto) Baso # (Auto) Abs Immat Gran (auto) Absolute Neuts (auto) Absolute Nucleated RBC Nucleated RBC % (auto) ESR PT INR Anion Gap Estim Creat Clear Calc Estimated GFR POC Glucose Random Glucose Lactic Acid 1.4 Calcium Magnesium Total Bilirubin Direct Bilirubin AST ALT Alkaline Phosphatase Ammonia 15 C-Reactive Protein B-Natriuretic Peptide 218 H Total Protein Albumin 25-OH Vitamin D Total COVID-19 (MOHSEN) COVID-[place] 10/08/21 10/08/21 10/08/21 14:08 21:50 22:11 MCV MCH MCHC RDW Plt Count MPV Immature Gran % (Auto) Neut % (Auto) Lymph % (Auto) [place] % (Auto) Eos % (Auto) Baso % (Auto) Lymph # (Auto) [place] # (Auto) Eos # (Auto) Baso # (Auto) Abs Immat Gran (auto) Absolute Neuts (auto) Absolute Nucleated RBC Nucleated RBC % (auto) ESR 95 H PT INR Anion Gap Estim Creat Clear Calc Estimated GFR POC Glucose 76 Random Glucose Lactic Acid Calcium Magnesium Total Bilirubin Direct Bilirubin AST ALT Alkaline Phosphatase Ammonia C-Reactive Protein B-Natriuretic Peptide Total Protein Albumin 25-OH Vitamin D Total COVID-19 (MOHSEN) Negative COVID-19 Clin Com See Note 10/09/21 10/09/21 10/09/21 06:15 07:48 08:05 MCV 83.3 MCH 25.8 L MCHC 31.0 RDW 18.3 H Plt Count 520 H MPV 10.0 Immature Gran % (Auto) Neut % (Auto) Lymph % (Auto) [place] % (Auto) Eos % (Auto) Baso % (Auto) Lymph # (Auto) [place] # (Auto) Eos # (Auto) Baso # (Auto) Abs Immat Gran (auto) Absolute Neuts (auto) Absolute Nucleated RBC 0.000 Nucleated RBC % (auto) 0.0 ESR PT INR Anion Gap 15 Estim Creat Clear Calc 22.2 Estimated GFR 26 POC Glucose 169 H Random Glucose 189 H Lactic Acid Calcium 5.9 L* D Magnesium 1.4 L* Total Bilirubin 0.3 Direct Bilirubin < 0.2 AST 25 ALT 14 Alkaline Phosphatase 170 H D Ammonia C-Reactive Protein B-Natriuretic Peptide Total Protein 5.0 L Albumin 2.2 L D 25-OH Vitamin D Total 16.9 COVID-19 (MOHSEN) COVID-19 Clin Com Assessment and Plan (1) Hypocalcemia: Status: Acute (2) Amputation stump pain: Status: Acute (3) Adult failure to thrive: Status: Acute (4) Hypomagnesemia: Status: Acute (5) Dry gangrene: Status: Acute (6) Toxic metabolic encephalopathy: Status: Acute Plan a 76 years old lady with PMH of type 2 diabetes, asthma, HTN, HLD, PAD post below-knee amputation RLE who presents to the hospital from facility for decreased oral intake, weakness and confusion. Toxic metabolic encephalopathy secondary to placement,dementia and medications Recurrent orientation Cut down narcotics as possible Monitor Decreased oral intake, FTT in adult Secondary to general deconditioning, confusion, pain Start diet with supplements To do physical therapy Controlled pain Stump pain Post amputation Start p.o. oxycodone higher frequency Vascular surgery evaluation , no signs of infection continue pain management Left foot ulcer, dry gangrene Second toe dry gangrene Seems worsening in comparison to last admission No signs of infection, hold antibiotics for now Surgery input, consider amputation or hospice measures Hypernatremia Sodium improved to 143 Continue gentle hydration with D5 Follow BMP Hypomagnesemia Mg of 1.4 Received supplement, follow mg Hypocalcemia Corrected calcium of 7.3 To give IV supplement Follow calcium level Type 2 diabetes Insulin diabetic diet Hypertension continue Cardizem, lisinopril and metoprolol Neuropathy continue pregabalin PVD continue aspirin and atorvastatin DVT PPX Lovenox Quality Stroke Does the patient have a stroke diagnosis?: No VTE Prior VTE?: No VTE Risk Level:: Medical - moderate - high VTE Device Contraindication: Treatment Not Indicated VTE Drug Contraindication: N/A - Med Ordered
[2021-10-09 12:33] LABS: Glucose, Whole Blood 141 mg/dL (60-115)
--- NOTE | 2021-10-09 13:03 | P.CONGS_ITS ---
History of Present Illness Consult details Consult date: 10/09/21 Reason for consult: wound care Narrative: Very confused 76-year-old female presents for vascular evaluation. Of note most recently she had undergone right BKA. She has undergone a period of significant confusion. She has nonhealing ulcers of the left foot. She was in a facility and was brought back to the hospital. She now presents to us for vascular evaluation. Of note she was non communicative and minimally arousable. She was asleep in bed. Per reports from facility her p.o. intake has diminished significantly. She is currently being held in the ER overflow. Review of Systems Review of Systems: Yes Unobtainable due to mental condition PMFSH Past Medical History Medical History Anemia in chronic kidney disease Anxiety Asthma Depression Diabetes mellitus Diabetic neuropathy Dysphagia Fibromyalgia GERD (gastroesophageal reflux disease) Hiatal hernia HTN (hypertension) Hx of gastritis Hypercholesterolemia Hypothyroidism IBS (irritable bowel syndrome) Mini stroke Mononeuritis On beta jeannie at home Osteoarthritis Osteoporosis PAD (peripheral artery disease) Vitamin B 12 deficiency Family History Family History Sister Diabetes Surgical History Surgical History H/O local excision of skin lesion History of ankle surgery History of back surgery History of esophagogastroduodenoscopy (EGD) History of open reduction and internal fixation (ORIF) procedure Hx of hysterectomy Social History Social History Household Members: Family Housing: House Do you presently have visiting nurse or other home services: Yes Unable to assess alcohol history related to: Unknown Alcohol intake: never Patient Tobacco Use Status: Former Tobacco user Quit Date: >20 yr ago e-Cigarette/Vaping Use: Never Used Second Hand Smoke Exposure: No Advance Directives: Yes Advance Directives on File: Yes Advance Directives Date on File: 11/05/20 service: No Current occupational status: disabled 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 Meds Allergies Allergy/AdvReac Type Severity Reaction Status Date / Time ibuprofen [From MOTRIN] Allergy Unknown UPSET Verified 09/24/21 13:23 STOMACH Active Medications: Current Medications Acetaminophen (Acetaminophen 325 Mg Tablet) 650 mg PO QSHIFT [facility] Last Admin: 10/09/21 09:07 Dose: 650 mg Documented by: Aspirin (Aspirin 81 Mg Tab.Chew) 81 mg PO DAILY [facility] Last Admin: 10/09/21 09:08 Dose: 81 mg Documented by: Atorvastatin Calcium (Atorvastatin Calcium 80 Mg Tablet) 80 mg PO DAILY [facility] Last Admin: 10/09/21 09:07 Dose: 80 mg Documented by: Diltiazem HCl (Diltiazem Hcl Cd 180 Mg Cap.Er.24h) 360 mg PO DAILY [facility]; Protocol Last Admin: 10/09/21 09:08 Dose: 360 mg Documented by: Enoxaparin Sodium (Enoxaparin Sodium 40 Mg/0.4 Ml Syringe) 40 mg SUBCUT Q24H [facility] Last Admin: 10/08/21 18:19 Dose: Not Given Documented by: Ferrous Sulfate (Ferrous Sulfate 324 Mg Tablet.) 324 mg PO BIDWM [facility] Last Admin: 10/09/21 09:08 Dose: 324 mg Documented by: Insulin Glargine (Insulin Glargine,Hum.Rec.Anlog 100 Unit/Ml 10 Ml Vial) 15 unit SUBCUT BEDTIME [facility] Last Admin: 10/08/21 22:15 Dose: Not Given Documented by: Insulin Human Lispro (Insulin Lispro 100 Unit/Ml 3 Ml Vial) 0 unit SUBCUT QIDACHS [facility]; Protocol Last Admin: 10/09/21 12:37 Dose: Not Given Documented by: Levothyroxine Sodium (Levothyroxine Sodium 100 Mcg Tablet) 100 mcg PO DAILY@0600 [facility] Last Admin: 10/09/21 06:40 Dose: 100 mcg Documented by: Melatonin (Melatonin 3 Mg Tablet) 6 mg PO BEDTIME [facility] Last Admin: 10/08/21 22:06 Dose: 6 mg Documented by: Metoprolol Succinate (Metoprolol Succinate Er 100 Mg Tab.Er.24h) 100 mg PO DAILY [facility]; Protocol Last Admin: 10/09/21 09:08 Dose: 100 mg Documented by: Nystatin (Nystatin Ointment 15 Gm Tube) 1 appl TOPICAL BID [facility]; Protocol Omeprazole (Omeprazole 20 Mg Capsule.) 20 mg PO DAILY@0630 [facility] Last Admin: 10/09/21 06:40 Dose: 20 mg Documented by: Ondansetron HCl (Ondansetron Hcl 4 Mg/2 Ml Vial) 4 mg IVPUSH Q8H PRN PRN Reason: Nausea and Vomiting Oxycodone HCl (Oxycodone Hcl Immed Release 5 Mg Tablet) 5 mg PO Q6H PRN PRN Reason: Pain, Severe (Pain Scale 7-10) Pharmacy Consult (Consult Rx Perform Med Rec) 1 each MISCELLANE ONCE PRN PRN Reason: Consult order Pharmacy Consult (Consult Rx Vancomycin Dosing) 1 each MISCELLANE DAILY PRN PRN Reason: Consult order Pregabalin (Pregabalin 100 Mg Capsule) 100 mg PO DAILY [facility] Last Admin: 10/09/21 09:07 Dose: 100 mg Documented by: Pregabalin (Pregabalin 200 Mg Capsule) 200 mg PO BEDTIME [facility] Last Admin: 10/08/21 22:05 Dose: 200 mg Documented by: Sitagliptin Phosphate (Sitagliptin Phosphate 100 Mg Tablet) 100 mg PO DAILY [facility] Last Admin: 10/09/21 09:36 Dose: Not Given Documented by: Sodium Chloride (0.9 % Sodium Chloride Flush 3 Ml Syringe) 3 ml IVFLUSH QSHIFT [facility] Last Admin: 10/09/21 08:48 Dose: Not Given Documented by: Tamsulosin HCl (Tamsulosin Hcl 0.4 Mg Capsule) 0.4 mg PO BEDTIME [facility] Last Admin: 10/08/21 22:06 Dose: 0.4 mg Documented by: Trazodone HCl (Trazodone Hcl 50 Mg Tablet) 50 mg PO BEDTIME [facility] Last Admin: 10/08/21 22:05 Dose: 50 mg Documented by: Home Medications Medication Instructions Recorded Confirmed Last Taken Type citalopram 20 mg tablet 20 mg PO DAILY 05/23/20 10/08/21 08/11/21 History diltiazem HCl 360 mg capsule,24 360 mg PO DAILY 05/23/20 10/08/21 08/11/21 History hr,extended release levothyroxine 100 mcg tablet 100 mcg PO DAILY@0600 05/23/20 10/08/21 08/11/21 History metoprolol succinate 100 mg 100 mg PO DAILY 05/23/20 10/08/21 08/11/21 History tablet,extended release 24 hr sitagliptin 100 mg tablet 100 mg PO DAILY 05/23/20 10/08/21 08/11/21 History trazodone 50 mg tablet 50 mg PO BEDTIME 05/23/20 10/08/21 08/11/21 History atorvastatin 80 mg tablet 1 tab PO DAILY 08/12/21 10/08/21 08/11/21 History denosumab 60 mg/mL subcutaneous 60 mg SUBCUT [id number] 08/12/21 10/08/21 Unknown History syringe (Prolia) insulin glargine 100 unit/mL (3 15 unit SUBCUT BEDTIME 08/12/21 10/08/21 Unknown History mL) subcutaneous pen (Lantus Solostar U-100 Insulin) melatonin 5 mg tablet 10 mg PO BEDTIME 08/12/21 10/08/21 08/11/21 History omeprazole 20 mg capsule,delayed 20 mg PO DAILY@0630 09/24/21 10/08/21 Unknown History release aspirin 81 mg chewable tablet 81 mg PO DAILY 10/08/21 10/08/21 Unknown History Physical Exam Vital Signs: Vital Signs: Last Vital Signs Temp 97.9 F 10/09/21 05:47 Pulse 81 10/09/21 10:36 Resp 14 10/09/21 10:36 BP 108/57 L 10/09/21 10:36 Pulse Ox 100 10/09/21 10:36 BMI result Body Mass Index 27.3 Const: General: lethargic and tired appearing Orientation/consciousness: o riented to person, oriented to place, oriented to time and lethargic HENMT: Head: Yes normal to inspection Neck: Carotids: no bruits Chest: Chest palpation & inspection: normal inspection of the chest Resp: Effort & Inspection: normal respiratory effort and able to speak in complete sentences Auscultation: clear to auscultation bilaterally Cardio: Rate: regular rate Heart sounds: S1 normal heart sound present and S2 normal heart sound present Peripheral pulses: dorsalis pedis present (Bilateral DP signal) GI: Inspection: Yes normal to inspection Skin: General skin exam: no rashes or lesions noted Wounds: amputation site (Right BKA stump appears to be healing well. Some irritation in the knee fo) and wounds noted (Left foot toe ulcers appears ischemic) Neuro: General: oriented to person, oriented to place, oriented to time and CN's II-XI intact bilaterally Extrem: General: Yes normal to inspection, Yes full ROM and Yes no clubbing, cyanosis or edema Psych: Appearance: grossly normal and well kempt Speech and movement: Normal speech and movement present Affect: normal affect Results Labs Result diagrams: 10/09/21 06:15 10/09/21 07:48 Labs: Abnormal lab results 10/08/21 10/08/21 10/08/21 Range/Units 14:08 14:08 14:08 WBC 21.8 H (4.8-10.8) X10*3/uL RBC 3.89 L (4.20-5.50) X10*6/uL Hgb 10.0 L (12.0-16.0) g/dl Hct 31.6 L (37.0-47.0) % MCH 25.7 L (27.0-33.0) pg RDW 18.4 H (11.0-16.0) % Plt Count 647 H (160-400) X10*3/uL MPV 9.0 L (9.4-12.3) fL Immature Gran % (Auto) 0.7 H (0.0-0.4) % Neut % (Auto) 84.2 H (45-73) % Lymph % (Auto) 8.6 L (20-40) % [place] # (Auto) 1.4 H (0.1-1.2) X10*3/uL Abs Immat Gran (auto) 0.16 H (0.00-0.03) X10*3/uL Absolute Neuts (auto) 18.3 H (2.0-8.3) x10*3/uL ESR (0-20) MM/HR Sodium 146 H (135-145) mmol/L Chloride 110 H (96-108) mmol/L Carbon Dioxide (22-29) mmol/L Creatinine 2.09 H (0.5-1.4) mg/dL POC Glucose (60-115) mg/dL Random Glucose 125 H (60-115) mg/dL Calcium 6.7 L D (8.4-10.2) mg/dL Magnesium 1.1 L* (1.6-2.6) mg/dL Alkaline Phosphatase 213 H D (39-117) U/L C-Reactive Protein 18.70 H (< or = 0.50) mg/dL B-Natriuretic Peptide 218 H (<100) pg/mL Total Protein 5.8 L (6.5-8.0) g/dL Albumin 2.8 L (3.5-5.0) g/dL 10/08/21 10/09/21 10/09/21 Range/Units 14:08 06:15 07:48 WBC 18.6 H (4.8-10.8) X10*3/uL RBC 3.72 L (4.20-5.50) X10*6/uL Hgb 9.6 L (12.0-16.0) g/dl Hct 31.0 L (37.0-47.0) % MCH 25.8 L (27.0-33.0) pg RDW 18.3 H (11.0-16.0) % Plt Count 520 H (160-400) X10*3/uL MPV (9.4-12.3) fL Immature Gran % (Auto) (0.0-0.4) % Neut % (Auto) (45-73) % Lymph % (Auto) (20-40) % [place] # (Auto) (0.1-1.2) X10*3/uL Abs Immat Gran (auto) (0.00-0.03) X10*3/uL Absolute Neuts (auto) (2.0-8.3) x10*3/uL ESR 95 H (0-20) MM/HR Sodium (135-145) mmol/L Chloride 114 H (96-108) mmol/L Carbon Dioxide 18 L (22-29) mmol/L Creatinine 1.87 H (0.5-1.4) mg/dL POC Glucose (60-115) mg/dL Random Glucose 189 H (60-115) mg/dL Calcium 5.9 L* D (8.4-10.2) mg/dL Magnesium 1.4 L* (1.6-2.6) mg/dL Alkaline Phosphatase 170 H D (39-117) U/L C-Reactive Protein (< or = 0.50) mg/dL B-Natriuretic Peptide (<100) pg/mL Total Protein 5.0 L (6.5-8.0) g/dL Albumin 2.2 L D (3.5-5.0) g/dL 10/09/21 10/09/21 Range/Units 08:05 12:02 WBC (4.8-10.8) X10*3/uL RBC (4.20-5.50) X10*6/uL Hgb (12.0-16.0) g/dl Hct (37.0-47.0) % MCH (27.0-33.0) pg RDW (11.0-16.0) % Plt Count (160-400) X10*3/uL MPV (9.4-12.3) fL Immature Gran % (Auto) (0.0-0.4) % Neut % (Auto) (45-73) % Lymph % (Auto) (20-40) % [place] # (Auto) (0.1-1.2) X10*3/uL Abs Immat Gran (auto) (0.00-0.03) X10*3/uL Absolute Neuts (auto) (2.0-8.3) x10*3/uL ESR (0-20) MM/HR Sodium (135-145) mmol/L Chloride (96-108) mmol/L Carbon Dioxide (22-29) mmol/L Creatinine (0.5-1.4) mg/dL POC Glucose 169 H 141 H (60-115) mg/dL Random Glucose (60-115) mg/dL Calcium (8.4-10.2) mg/dL Magnesium (1.6-2.6) mg/dL Alkaline Phosphatase (39-117) U/L C-Reactive Protein (< or = 0.50) mg/dL B-Natriuretic Peptide (<100) pg/mL Total Protein (6.5-8.0) g/dL Albumin (3.5-5.0) g/dL Short CBC 10/08/21 10/09/21 Range/Units 14:08 06:15 WBC 21.8 H 18.6 H (4.8-10.8) X10*3/uL Hgb 10.0 L 9.6 L (12.0-16.0) g/dl Hct 31.6 L 31.0 L (37.0-47.0) % Plt Count 647 H 520 H (160-400) X10*3/uL BMP 10/08/21 10/09/21 14:08 07:48 Sodium 146 H 143 Potassium 3.6 4.2 Chloride 110 H 114 H Carbon Dioxide 24 18 L BUN 16 15 Creatinine 2.09 H 1.87 H Calcium 6.7 L D 5.9 L* D Liver Function 10/08/21 10/09/21 Range/Units 14:08 07:48 Total Bilirubin 0.4 0.3 (0.0-1.0) mg/dL Direct Bilirubin 0.2 < 0.2 (0.0-0.5) mg/dL AST 29 D 25 (5-31) U/L ALT 20 14 (0-31) U/L Alkaline Phosphatase 213 H D 170 H D (39-117) U/L Albumin 2.8 L 2.2 L D (3.5-5.0) g/dL All other labs normal. Assessment and Plan (1) PVD (peripheral vascular disease): Status: Acute In short patient has nonhealing left foot ulcers. She has multiple comorbidities in appears to be clinically deteriorating. She is minimally re sponsive. At the current time it does not appear that she will improve. I would only offer her an AKA at this point. I do believe the better course for her would be hospice and potentially home hospice. No acute intervention indicated. I did attempt to reach out to the grandson and am awaiting a call back. We will monitor this patient with you. Thank you for allowing us to assist in her care. Procedures Date of Service Date of Service: 10/09/21
[2021-10-09] MEDS: Nystatin Ointment 15 GM TUBE 1 APPL TOPICAL (14:28)
--- NOTE | 2021-10-09 15:22 | PC.NURSE ---
Pt rested during her stay in ED overflow. Pt remained responsive to pain stimuli only during her stay. Pt did not consume any meals while she was here. Pt was also noted to be hypotensive; provider as notified. Report given to oncoming nurse
--- NOTE | 2021-10-09 16:12 | MHC.CM.PN ---
CM CONTACTED PTS GRANDSON/PRIMARY CONTACT, JOHNNY [phone] WHO REPORTS THE PT WAS LIVING AT HOME PRIOR TO HER LAST ADMISSION. HE REPORTS HE HAS BEEN STAYING WITH HER SINCE SHE HAS BEEN HAVING TROUBLE TAKING CARE OF HERSELF HE REPORTS WHEN SHE IS AT HOME SHE HAS 24/7 CARE PROVIDED BY FAMILY PT WAS DISCHARGED TO [facility] ON 10/06, JOHNNY REPORTS HE IS UNSURE IF THEY WILL WANT PT TO RETURN TO STR OR HOME. HE WILL SPEAK WITH PT AND FAMILY PTS MEDICARE RIGHTS WERE DELIVERED, ORIGINAL LEFT AT BEDSIDE PER DAT REQUEST, WILLIAM SENT TO [facility] CURRENT DC PLAN IS RETURN TO STR AT [facility] VS HOME WITH RESUMPTION OF SERVICES AND HOME PT PT WILL REQUIRE BLS TRANSPORT
[2021-10-09] MEDS: 0.9 % Sodium Chloride 250 ML 999 ML IV (17:11)
--- NOTE | 2021-10-09 20:33 | PC.NURSE ---
RN MADE HOSPITALIST AWARE PT CONTINUES TO BE MINIMALLY RESPONSIVE THROUGHOUT THIS SHIFT. PT RESPONDS TO VERBAL STIMULI BUT REFUSES TO EAT, AND WILL NOT TAKE PO MEDS. PER MD NOC MEDS & INSULIN TO BE HELD. PT VS REMAIN STABLE
[2021-10-09] MEDS: 0.9 % Sodium Chloride Flush 3 ML SYRINGE IVFLUSH (23:28)
[2021-10-10 01:01] VITALS: BP 125/93; PULSE 85; RESP 18; TEMP 37.1; O2SAT 96
[2021-10-10 06:06] VITALS: BP 121/62; PULSE 75; RESP 16; TEMP 36.7; O2SAT 100
[2021-10-10 08:24] LABS: Alanine Aminotransferase 13 U/L (0-31); Albumin Level 1.9 g/dL (3.5-5.0); Alkaline Phosphatase 161 U/L (39-117); Anion Gap 17 (12-20); Aspartate Amino Transferase 23 U/L (5-31); Bilirubin Direct < 0.2 mg/dL (0.0-0.5); Bilirubin Total 0.4 mg/dL (0.0-1.0); Blood Urea Nitrogen 15 mg/dL (9-16); Calcium 6.7 mg/dL (8.4-10.2); Carbon Dioxide 21 mmol/L (22-29); Chloride 114 mmol/L (96-108); Estimated Glomerular Filt Rate 27; Glucose Random 99 mg/dL (60-115); Magnesium 1.8 mg/dL (1.6-2.6); Potassium 3.7 mmol/L (3.3-5.1); Sodium 148 mmol/L (135-145); Total Protein 4.7 g/dL (6.5-8.0)
[2021-10-10 08:31] LABS: Hematocrit 27.4 % (37.0-47.0); Hemoglobin 8.5 g/dl (12.0-16.0); Mean Corpuscular Hemoglobin 25.6 pg (27.0-33.0); Mean Corpuscular Volume 82.5 fL (80.0-98.0); Platelet Count 529 X10*3/uL (160-400); Red Blood Count 3.32 X10*6/uL (4.20-5.50); Red Cell Distribution Width 18.3 % (11.0-16.0); White Blood Count 19.7 X10*3/uL (4.8-10.8)
[2021-10-10] MEDS: 0.9 % Sodium Chloride Flush 3 ML SYRINGE IVFLUSH ×2 (09:03→16:07)
[2021-10-10 09:04] VITALS: BP 119/56; PULSE 79; RESP 12; TEMP 36.4; O2SAT 96
[2021-10-10] MEDS: dilTIAZem HCL CD 180 MG CAP.ER.24H 360 MG PO (10:21)
[2021-10-10] MEDS: Pregabalin 100 MG CAPSULE PO (10:22)
[2021-10-10] MEDS: SITagliptin Phosphate 100 MG TABLET PO (10:22)
[2021-10-10] MEDS: Acetaminophen 325 MG TABLET 650 MG PO ×2 (10:22→16:02)
[2021-10-10] MEDS: Metoprolol Succinate ER 100 MG TAB.ER.24H PO (10:22)
[2021-10-10] MEDS: Ferrous Sulfate 324 MG TABLET.DR PO ×2 (10:22→16:02)
[2021-10-10] MEDS: Atorvastatin Calcium 80 MG TABLET PO (10:23)
[2021-10-10] MEDS: Aspirin 81 MG TAB.CHEW PO (10:23)
--- NOTE | 2021-10-10 10:43 | P.PNIM_ITS ---
Subjective Subjective Date of Service: 10/10/21 Interval History: The patient was seen and evaluated this morning Laying in bed, difficult to arouse in the morning Family at the bedside No reported other overnight events. Review of Systems No fever, chills but decreased energy and decreased appetite No chest pain, palpitation No shortness of breath or coughing No abdominal pain, nausea or vomiting No urinary symptoms No any rash or wounds Physical Exam Vital Signs: Vital Signs: Last Vital Signs Temp 97.6 F 10/10/21 09:04 Pulse 79 10/10/21 09:04 Resp 12 10/10/21 09:04 BP 119/56 L 10/10/21 09:04 Pulse Ox 96 10/10/21 09:04 BMI result Body Mass Index 27.3 Const: Other: Constitutional :? Alert, interactive , mildly confused Neck : Normal in spection, Supple C ardiovascular : RR R, S1 S2, no lower extremity edema R espiratory : Good bilateral air entr y,? no crackles, w heezes or rhonchi Gastrointestinal:? soft, lax, Normal bowel sounds, Non tender Skin :? Be low-knee amputatio n, wound looks neymar an with no erythem a or bleeding but very sensitive and tender to touch. chronic foot ulcer in the left foot with worsening munira ckish discoloratio n of the 2nd toe. Neurological : Sabrina rt & oriented to s elf but not to gayla ce, mildly confuse d No focal deficit Extrem: Other: Please refer to images above, right BKA with urszula intact, no overlying cellulitis, darkness over suture line, no fluctuance/induration. Left 2nd toe with large ulceration/necrosis. Left great toe with discoloration, lateral ulceration also noted to left 5th toe. NV intact. Objective Data Active Medications Acetaminophen (Acetaminophen 325 Mg Tablet) 650 mg PO QSHIFT [facility] Last Admin: 10/10/21 10:22 Dose: 650 mg Documented by: LYDIA Aspirin (Aspirin 81 Mg Tab.Chew) 81 mg PO DAILY [facility] Last Admin: 10/10/21 10:23 Dose: 81 mg Documented by: LYDIA Atorvastatin Calcium (Atorvastatin Calcium 80 Mg Tablet) 80 mg PO DAILY [facility] Last Admin: 10/10/21 10:23 Dose: 80 mg Documented by: LYDIA Diltiazem HCl (Diltiazem Hcl Cd 180 Mg Cap.Er.24h) 360 mg PO DAILY [facility]; Protocol Last Admin: 10/10/21 10:21 Dose: 360 mg Documented by: LYDIA Enoxaparin Sodium (Enoxaparin Sodium 40 Mg/0.4 Ml Syringe) 40 mg SUBCUT Q24H [facility] Last Admin: 10/09/21 16:38 Dose: Not Given Documented by: ELDON Non-Admin Reason: Patient Refused Ferrous Sulfate (Ferrous Sulfate 324 Mg Tablet.) 324 mg PO BIDWM [facility] Last Admin: 10/10/21 10:22 Dose: 324 mg Documented by: LYDAI Insulin Glargine (Insulin Glargine,Hum.Rec.Anlog 100 Unit/Ml 10 Ml Vial) 15 unit SUBCUT BEDTIME [facility] Last Admin: 10/09/21 20:41 Dose: Not Given Documented by: ELDON Non-Admin Reason: Physician Held Med Insulin Human Lispro (Insulin Lispro 100 Unit/Ml 3 Ml Vial) 0 unit SUBCUT QIDACHS [facility]; Protocol Last Admin: 10/10/21 09:03 Dose: Not Given Documented by: LYDIA Non-Admin Reason: No Insulin Coverage Levothyroxine Sodium (Levothyroxine Sodium 100 Mcg Tablet) 100 mcg PO DAILY@0600 [facility] Last Admin: 10/10/21 06:24 Dose: Not Given Documented by: OFELIA Non-Admin Reason: Patient Asleep Melatonin (Melatonin 3 Mg Tablet) 6 mg PO BEDTIME [facility] Last Admin: 10/09/21 20:55 Dose: Not Given Documented by: ELDON Non-Admin Reason: Physician Held Med Metoprolol Succinate (Metoprolol Succinate Er 100 Mg Tab.Er.24h) 100 mg PO DAILY [facility]; Protocol Last Admin: 10/10/21 10:22 Dose: 100 mg Documented by: LYDIA Nystatin (Nystatin Ointment 15 Gm Tube) 1 appl TOPICAL BID [facility]; Protocol Last Admin: 10/09/21 20:55 Dose: Not Given Documented by: ELDON Non-Admin Reason: See Note Omeprazole (Omeprazole 20 Mg Capsule.) 20 mg PO DAILY@0630 [facility] Last Admin: 10/10/21 06:24 Dose: Not Given Documented by: OFELIA Non-Admin Reason: Patient Asleep Ondansetron HCl (Ondansetron Hcl 4 Mg/2 Ml Vial) 4 mg IVPUSH Q8H PRN PRN Reason: Nausea and Vomiting Oxycodone HCl (Oxycodone Hcl Immed Release 5 Mg Tablet) 5 mg PO Q6H PRN PRN Reason: Pain, Severe (Pain Scale 7-10) Pharmacy Consult (Consult Rx Perform Med Rec) 1 each MISCELLANE ONCE PRN PRN Reason: Consult order Pharmacy Consult (Consult Rx Vancomycin Dosing) 1 each MISCELLANE DAILY PRN PRN Reason: Consult order Pregabalin (Pregabalin 100 Mg Capsule) 100 mg PO DAILY [facility] Last Admin: 10/10/21 10:22 Dose: 100 mg Documented by: OSIRISRAMPAM Pregabalin (Pregabalin 200 Mg Capsule) 200 mg PO BEDTIME [facility] Last Admin: 10/09/21 20:46 Dose: Not Given Documented by: ELDON Non-Admin Reason: Physician Held Med Sitagliptin Phosphate (Sitagliptin Phosphate 100 Mg Tablet) 100 mg PO DAILY [facility] Last Admin: 10/10/21 10:22 Dose: 100 mg Documented by: LYDIA Sodium Chloride (0.9 % Sodium Chloride Flush 3 Ml Syringe) 3 ml IVFLUSH QSHIFT [facility] Last Admin: 10/10/21 09:03 Dose: 3 ml Documented by: LYDIA Tamsulosin HCl (Tamsulosin Hcl 0.4 Mg Capsule) 0.4 mg PO BEDTIME [facility] Last Admin: 10/09/21 20:46 Dose: Not Given Documented by: ELDON Non-Admin Reason: Physician Held Med Trazodone HCl (Trazodone Hcl 50 Mg Tablet) 50 mg PO BEDTIME [facility] Last Admin: 10/09/21 20:48 Dose: Not Given Documented by: ELDON Non-Admin Reason: Physician Held Med Labs CBC & Chem 7: 10/10/21 08:25 10/10/21 07:39 Labs: Laboratory Results - last 24 hr 10/09/21 10/10/21 10/10/21 12:02 07:39 07:39 MCV MCH MCHC RDW Plt Count MPV Absolute Nucleated RBC Nucleated RBC % (auto) Anion Gap 17 Estim Creat Clear Calc 23.0 Estimated GFR 27 POC Glucose 141 H Random Glucose 99 Calcium 6.7 L D Magnesium 1.8 Total Bilirubin 0.4 Direct Bilirubin < 0.2 AST 23 ALT 13 Alkaline Phosphatase 161 H Total Protein 4.7 L Albumin 1.9 L 10/10/21 08:25 MCV 82.5 MCH 25.6 L MCHC 31.0 RDW 18.3 H Plt Count 529 H MPV 9.0 L Absolute Nucleated RBC 0.000 Nucleated RBC % (auto) 0.0 Anion Gap Estim Creat Clear Calc Estimated GFR POC Glucose Random Glucose Calcium Magnesium Total Bilirubin Direct Bilirubin AST ALT Alkaline Phosphatase Total Protein Albumin Microbiology Microbiology Results: Microbiology 10/08/21 14:08 Blood Culture - Preliminary Blood - Venous No growth after 24 hours. 10/08/21 14:04 Blood Culture - Preliminary Blood - Venous No growth after 24 hours. Assessment and Plan (1) Toxic metabolic encephalopathy: Status: Acute (2) Hypocalcemia: Status: Acute (3) Amputation stump pain: Status: Acute (4) Adult failure to thrive: Status: Acute (5) Hypomagnesemia: Status: Acute (6) Toe necrosis: Status: Acute (7) Hypernatremia: Status: Acute Plan a 76 years old lady with PMH of type 2 diabetes, asthma, HTN, HLD, PAD post below-knee amputation RLE who presents to the hospital from facility for decreased oral intake, weakness and confusion. Toxic metabolic encephalopathy secondary to physical deconditioning, dementia and medications Recurrent orientation Cut down narcotics as possible Monitor Decreased oral intake, FTT in adult Secondary to general deconditioning, confusion, pain Start diet with supplements To do physical therapy Controlled pain Discussed goals of care with the family, her son, HCP okay with having discussion with hospice team. Stump pain Post amputation Continue p.o. oxycodone higher frequency Vascular surgery evaluation , no signs of infection continue pain management Left foot ulcer, dry gangrene Second toe dry gangrene Seems worsening in comparison to last admission No signs of infection, hold antibiotics for now Surgery input, consider amputation or hospice measures Hypernatremia Sodium increased to 148 Continue gentle hydration with D5 Follow BMP Hypomagnesemia Mg of 1.8 Received supplement, follow mg Hypocalcemia Corrected calcium of 8.4 Follow calcium level Type 2 diabetes Insulin diabetic diet Hypertension continue Cardizem, lisinopril and metoprolol Neuropathy continue pregabalin PVD continue aspirin and atorvastatin DVT PPX Lovenox Quality Stroke Does the patient have a stroke diagnosis?: No VTE Prior VTE?: No VTE Risk Level:: Medical - moderate - high VTE Device Contraindication: Treatment Not Indicated VTE Drug Contraindication: N/A - Med Ordered
--- NOTE | 2021-10-10 13:58 | PC.NURSE ---
Pt Alert, swazi speaking only. Answers questions at this time. Denies pain at this time, R BKA with dark coloring along staple line, redness noted behind R knee and L foor 2nd toe gangrene in appearance as well as 5th toe. Family at bedside, pt eating and drinking at this time, took AM meds without difficulty. Plan for IV fluids at this time, per MD, family agreeable to hospice consult. Call manzano within reach. Will continue to monitor.
[2021-10-10] MEDS: Dextrose 5 % 1,000 ML 80 ML IVCONT ×2 (15:07→15:56)
[2021-10-10] MEDS: oxyCODONE HCl Immed Release 5 MG TABLET PO (15:27)
[2021-10-10 15:47] VITALS: BP 99/55; PULSE 78; RESP 18; TEMP 37.1; O2SAT 96
[2021-10-10] MEDS: Enoxaparin Sodium 40 MG/0.4 ML SYRINGE SUBCUT (16:03)
[2021-10-10 16:10] LABS: Glucose, Whole Blood 233 mg/dL (60-115)
[2021-10-10] MEDS: Insulin Lispro 100 UNIT/ML 3 ML VIAL SUBCUT ×2 (16:52→20:15)
[2021-10-10 19:12] VITALS: BP 140/72; PULSE 65; RESP 18; TEMP 36.6; O2SAT 97
[2021-10-10 19:56] LABS: Glucose, Whole Blood 214 mg/dL (60-115)
[2021-10-10] MEDS: Insulin Glargine,Hum.rec.anlog 100 UNIT/ML 10 ML VIAL 15 UNIT SUBCUT (20:14)
[2021-10-10] MEDS: Nystatin Ointment 15 GM TUBE 1 APPL TOPICAL (20:16)
[2021-10-10 23:50] VITALS: BP 96/65; PULSE 62; RESP 16; TEMP 36.4; O2SAT 97
[2021-10-11 04:00] VITALS: BP 81/42; PULSE 57; RESP 16; TEMP 36; O2SAT 96
[2021-10-11] MEDS: Dextrose 5 % 1,000 ML 80 ML IVCONT (04:20)
[2021-10-11] MEDS: Levothyroxine Sodium 100 MCG TABLET PO (05:48)
[2021-10-11] MEDS: Omeprazole 20 MG CAPSULE.DR PO (05:48)
[2021-10-11 06:38] LABS: Anion Gap 12 (12-20); Blood Urea Nitrogen 19 mg/dL (9-16); Calcium 6.7 mg/dL (8.4-10.2); Carbon Dioxide 23 mmol/L (22-29); Chloride 106 mmol/L (96-108); Creatinine Clr Calc Pharmacy 17.7; Estimated Glomerular Filt Rate 20; Glucose Random 148 mg/dL (60-115); Potassium 3.3 mmol/L (3.3-5.1); Sodium 138 mmol/L (135-145)
[2021-10-11 07:27] LABS: Glucose, Whole Blood 196 mg/dL (60-115)
[2021-10-11 07:56] VITALS: BP 93/53; PULSE 54; RESP 15; TEMP 36; O2SAT 97
[2021-10-11] MEDS: Insulin Lispro 100 UNIT/ML 3 ML VIAL SUBCUT (08:20)
[2021-10-11] MEDS: Aspirin 81 MG TAB.CHEW PO (08:20)
[2021-10-11] MEDS: Acetaminophen 325 MG TABLET 650 MG PO ×2 (08:20→15:37)
[2021-10-11] MEDS: Ferrous Sulfate 324 MG TABLET.DR PO (08:20)
[2021-10-11] MEDS: Pregabalin 100 MG CAPSULE PO (08:20)
[2021-10-11] MEDS: Atorvastatin Calcium 80 MG TABLET PO (08:20)
[2021-10-11] MEDS: SITagliptin Phosphate 100 MG TABLET PO (08:20)
[2021-10-11] MEDS: Nystatin Ointment 15 GM TUBE 1 APPL TOPICAL ×2 (08:29→20:32)
--- NOTE | 2021-10-11 08:59 | MHC.CM.PN ---
Referral placed for Hospice informational meeting with [facility] per family request and concurrence with MD. Pt with overall poor prognosis but no need for GIP admission as she is stable and not exhibiting uncontrolled pain issues, high O2 needs or other intensity of medical services. CM to follow
--- NOTE | 2021-10-11 10:28 | HO.PM.IMPN ---
Subjective Subjective Date of Service: 10/11/21 Interval History: The patient was seen and evaluated this morning Laying in bed, calmly confused Pain is under fair control No reported other overnight events. Review of Systems No fever, chills but decreased energy and decreased appetite No chest pain, palpitation No shortness of breath or coughing No abdominal pain, nausea or vomiting No urinary symptoms No any rash or wounds Physical Exam Vital Signs: Vital Signs: Last Vital Signs Temp 96.8 F 10/11/21 07:56 Pulse 54 10/11/21 07:56 Resp 15 10/11/21 07:56 BP 93/53 L 10/11/21 07:56 Pulse Ox 97 10/11/21 07:56 BMI result Body Mass Index 27.3 Const: Other: Constitutional :? Alert, interactive , mildly confused Neck : Normal in spection, Supple C ardiovascular : RR R, S1 S2, no lower extremity edema R espiratory : Good bilateral air entr y,? no crackles, w heezes or rhonchi Gastrointestinal:? soft, lax, Normal bowel sounds, Non tender Skin :? Be low-knee amputatio n, stump wound loo ks clean with no e rythema or bleedin g , mildly tender to touch. chronic foot ulcer in the left foot with wor sening blackish di scoloration of the 2nd toe. Neurolog ical : Alert & lee ann ented to self but not to place, mild ly confused No foc al deficit Objective Data Active Medications Acetaminophen (Acetaminophen 325 Mg Tablet) 650 mg PO QSHIFT [facility] Last Admin: 10/11/21 08:20 Dose: 650 mg Documented by: RICHARD Aspirin (Aspirin 81 Mg Tab.Chew) 81 mg PO DAILY [facility] Last Admin: 10/11/21 08:20 Dose: 81 mg Documented by: RICHARD Atorvastatin Calcium (Atorvastatin Calcium 80 Mg Tablet) 80 mg PO DAILY [facility] Last Admin: 10/11/21 08:20 Dose: 80 mg Documented by: RICHARD Diltiazem HCl (Diltiazem Hcl Cd 240 Mg Cap.Er.Deg) 240 mg PO DAILY [facility]; Protocol Enoxaparin Sodium (Enoxaparin Sodium 40 Mg/0.4 Ml Syringe) 40 mg SUBCUT Q24H [facility] Last Admin: 10/10/21 16:03 Dose: 40 mg Documented by: RICHARD Ferrous Sulfate (Ferrous Sulfate 324 Mg Tablet.) 324 mg PO BIDWM [facility] Last Admin: 10/11/21 08:20 Dose: 324 mg Documented by: RICHARD Dextrose (D5w) 1,000 mls @ 80 mls/hr IVCONT .[id number] [facility] Last Admin: 10/11/21 04:20 Dose: 80 mls/hr Documented by: OFELIA Insulin Glargine (Insulin Glargine,Hum.Rec.Anlog 100 Unit/Ml 10 Ml Vial) 15 unit SUBCUT BEDTIME [facility] Last Admin: 10/10/21 20:14 Dose: 15 unit Documented by: OFELIA Insulin Human Lispro (Insulin Lispro 100 Unit/Ml 3 Ml Vial) 0 unit SUBCUT QIDACHS [facility]; Protocol Last Admin: 10/11/21 08:20 Dose: 2 unit Documented by: RICHARD Levothyroxine Sodium (Levothyroxine Sodium 100 Mcg Tablet) 100 mcg PO DAILY@0600 [facility] Last Admin: 10/11/21 05:48 Dose: 100 mcg Documented by: OFELIA Melatonin (Melatonin 3 Mg Tablet) 6 mg PO BEDTIME [facility] Last Admin: 10/10/21 20:18 Dose: Not Given Documented by: OFELIA Non-Admin Reason: Patient Refused Metoprolol Succinate (Metoprolol Succinate Er 50 Mg Tab.Er.24h) 50 mg PO DAILY [facility]; Protocol Nystatin (Nystatin Ointment 15 Gm Tube) 1 appl TOPICAL BID [facility]; Protocol Last Admin: 10/11/21 08:29 Dose: 1 appl Documented by: RICHARD Omeprazole (Omeprazole 20 Mg Capsule.) 20 mg PO DAILY@0630 [facility] Last Admin: 10/11/21 05:48 Dose: 20 mg Documented by: OFELIA Ondansetron HCl (Ondansetron Hcl 4 Mg/2 Ml Vial) 4 mg IVPUSH Q8H PRN PRN Reason: Nausea and Vomiting Oxycodone HCl (Oxycodone Hcl Immed Release 5 Mg Tablet) 5 mg PO Q6H PRN PRN Reason: Pain, Severe (Pain Scale 7-10) Last Admin: 10/10/21 15:27 Dose: 5 mg Documented by: LYDIA Pharmacy Consult (Consult Rx Perform Med Rec) 1 each MISCELLANE ONCE PRN PRN Reason: Consult order Pharmacy Consult (Consult Rx Vancomycin Dosing) 1 each MISCELLANE DAILY PRN PRN Reason: Consult order Pregabalin (Pregabalin 100 Mg Capsule) 100 mg PO DAILY [facility] Last Admin: 10/11/21 08:20 Dose: 100 mg Documented by: RICHARD Pregabalin (Pregabalin 200 Mg Capsule) 200 mg PO BEDTIME [facility] Last Admin: 10/10/21 20:18 Dose: Not Given Documented by: OFELIA Non-Admin Reason: Patient Refused Sitagliptin Phosphate (Sitagliptin Phosphate 100 Mg Tablet) 100 mg PO DAILY [facility] Last Admin: 10/11/21 08:20 Dose: 100 mg Documented by: RICHARD Sodium Chloride (0.9 % Sodium Chloride Flush 3 Ml Syringe) 3 ml IVFLUSH QSHIFT [facility] Last Admin: 10/11/21 08:20 Dose: Not Given Documented by: RICHARD Non-Admin Reason: IV Running Tamsulosin HCl (Tamsulosin Hcl 0.4 Mg Capsule) 0.4 mg PO BEDTIME [facility] Last Admin: 10/10/21 20:18 Dose: Not Given Documented by: OFELIA Non-Admin Reason: Patient Refused Trazodone HCl (Trazodone Hcl 50 Mg Tablet) 50 mg PO BEDTIME [facility] Last Admin: 10/10/21 20:18 Dose: Not Given Documented by: OFELIA Non-Admin Reason: Patient Refused Labs CBC & Chem 7: 10/10/21 08:25 10/11/21 05:57 Labs: Laboratory Results - last 24 hr 10/08/21 10/10/21 10/10/21 14:08 16:02 19:47 ESR 95 H Anion Gap Estim Creat Clear Calc Estimated GFR POC Glucose 233 H 214 H Random Glucose Calcium 10/11/21 10/11/21 05:57 07:24 ESR Anion Gap 12 Estim Creat Clear Calc 17.7 Estimated GFR 20 POC Glucose 196 H Random Glucose 148 H Calcium 6.7 L Microbiology Microbiology Results: Microbiology 10/08/21 14:08 Blood Culture - Preliminary Blood - Venous No growth after 48 hours. 10/08/21 14:04 Blood Culture - Preliminary Blood - Venous No growth after 48 hours. Assessment and Plan (1) Hypernatremia: Status: Acute (2) Toxic metabolic encephalopathy: Status: Acute (3) Hypocalcemia: Status: Acute (4) Toe necrosis: Status: Acute Plan a 76 years old lady with PMH of type 2 diabetes, asthma, HTN, HLD, PAD post below-knee amputation RLE who presents to the hospital from facility for decreased oral intake, weakness and confusion. Hypotension Blood pressure running so it 90s over 50s Secondary to blood pressure medication not sepsis Hold blood pressure medication and give IV fluid Monitor blood pressure Toxic metabolic encephalopathy secondary to physical deconditioning, dementia and medications Recurrent orientation Cut down narcotics as possible Monitor Decreased oral intake, FTT in adult Secondary to general deconditioning, confusion, pain Start diet with supplements To do physical therapy Control pain Discussed goals of care with the family, her son, HCP okay with having discussion with hospice team. Hospice will be here by tomorrow to discuss. Stump pain Post amputation Continue p.o. oxycodone higher frequency Vascular surgery evaluation , no signs of infection continue pain management Left foot ulcer, dry gangrene Second toe dry gangrene Seems worsening in comparison to last admission No signs of infection, hold antibiotics for now Surgery input, consider amputation or hospice measures Hypernatremia Sodium improved back to normal Continue gentle hydration with D5 Follow BMP Hypomagnesemia Mg of 1.8 Received supplement, follow mg Hypocalcemia Corrected calcium of 8.4 Low vitamin-D Received calcium supplement and start vitamin-D Follow calcium level Type 2 diabetes Insulin diabetic diet Hypertension continue Cardizem, lisinopril and metoprolol Neuropathy continue pregabalin PVD continue aspirin and atorvastatin DVT PPX Lovenox Quality Stroke Does the patient have a stroke diagnosis?: No VTE Prior VTE?: No VTE Risk Level:: Medical - moderate - high VTE Device Contraindication: Treatment Not Indicated VTE Drug Contraindication: N/A - Med Ordered
[2021-10-11] MEDS: oxyCODONE HCl Immed Release 5 MG TABLET PO ×2 (11:13→18:12)
[2021-10-11 11:32] LABS: Glucose, Whole Blood 135 mg/dL (60-115)
[2021-10-11 11:43] VITALS: BP 85/49; PULSE 53; RESP 15; TEMP 36.6; O2SAT 94
[2021-10-11] MEDS: 0.9 % Sodium Chloride 500 ML IV (12:08)
[2021-10-11 13:36] VITALS: BP 93/59
[2021-10-11] MEDS: Lactated Ringers 1,000 ML 80 ML IVCONT (13:53)
[2021-10-11 15:25] VITALS: BP 105/68; PULSE 69; RESP 17; TEMP 36.7; O2SAT 95
[2021-10-11] MEDS: Enoxaparin Sodium 40 MG/0.4 ML SYRINGE SUBCUT (15:31)
[2021-10-11 15:45] LABS: Glucose, Whole Blood 132 mg/dL (60-115)
[2021-10-11 19:17] VITALS: BP 94/50; PULSE 74; RESP 17; TEMP 36.8; O2SAT 98
[2021-10-11] MEDS: Pregabalin 200 MG CAPSULE PO (20:31)
[2021-10-11 20:32] LABS: Glucose, Whole Blood 112 mg/dL (60-115)
--- NOTE | 2021-10-11 22:43 | PC.NURSE ---
attempted to give pm meds to pt, pt took first med, but spitted out all other meds. multiple attempts made with no result. will cont to monitor
[2021-10-12] VITALS: BP 119/66; PULSE 83; RESP 17; TEMP 36; O2SAT 99
[2021-10-12] MEDS: Lactated Ringers 1,000 ML 80 ML IVCONT (01:52)
[2021-10-12 04:00] VITALS: BP 142/74; PULSE 81; RESP 17; TEMP 36.1; O2SAT 100
[2021-10-12] MEDS: Levothyroxine Sodium 100 MCG TABLET PO (04:46)
[2021-10-12] MEDS: Omeprazole 20 MG CAPSULE.DR PO (04:48)
[2021-10-12 06:31] LABS: Glucose, Whole Blood 126 mg/dL (60-115)
[2021-10-12 06:31] LABS: Glucose, Whole Blood 97 mg/dL (60-115)
[2021-10-12 06:32] LABS: Glucose, Whole Blood 149 mg/dL (60-115)
[2021-10-12 07:09] VITALS: BP 118/58; PULSE 87; RESP 18; TEMP 36.4; O2SAT 96
[2021-10-12 08:08] LABS: Glucose, Whole Blood 86 mg/dL (60-115)
[2021-10-12] MEDS: oxyCODONE HCl Immed Release 5 MG TABLET PO (08:42)
--- NOTE | 2021-10-12 09:56 | MHC.CM.PN ---
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
[2021-10-12 11:02] VITALS: BP 122/68; PULSE 100; RESP 18; TEMP 37.2; O2SAT 97
[2021-10-12 11:30] LABS: Glucose, Whole Blood 128 mg/dL (60-115)
[2021-10-12] MEDS: Nystatin Ointment 15 GM TUBE 1 APPL TOPICAL ×2 (11:33→20:18)
--- NOTE | 2021-10-12 11:45 | HO.PM.IMPN ---
Subjective Subjective Date of Service: 10/12/21 Interval History: The patient was seen and evaluated this morning Laying in bed, calmly confused with no overnight reported issues Pain is under fair control No reported other overnight events. Review of Systems No fever, chills but decreased energy and decreased appetite No chest pain, palpitation No shortness of breath or coughing No abdominal pain, nausea or vomiting No urinary symptoms No any rash or wounds Physical Exam Vital Signs: Vital Signs: Last Vital Signs Temp 98.9 F 10/12/21 11:02 Pulse 100 10/12/21 11:02 Resp 18 10/12/21 11:02 BP 122/68 10/12/21 11:02 Pulse Ox 97 10/12/21 11:02 BMI result Body Mass Index 27.3 Const: Other: Constitutional :? Alert, interactive , mildly confused Neck : Normal in spection, Supple C ardiovascular : RR R, S1 S2, no lower extremity edema R espiratory : Good bilateral air entr y,? no crackles, w heezes or rhonchi Gastrointestinal:? soft, lax, Normal bowel sounds, Non tender Skin :? Be low-knee amputatio n, stump wound loo ks clean with no e rythema or bleedin g , mildly tender to touch. chronic foot ulcer in the left foot with wor sening blackish di scoloration of the 2nd toe. Neurolog ical : Alert & lee ann ented to self but not to place, mild ly confused No foc al deficit Objective Data Active Medications Acetaminophen (Acetaminophen 325 Mg Tablet) 650 mg PO QSHIFT [facility] Last Admin: 10/12/21 08:52 Dose: Not Given Documented by: RICHARD Non-Admin Reason: Patient Refused Aspirin (Aspirin 81 Mg Tab.Chew) 81 mg PO DAILY [facility] Last Admin: 10/12/21 08:52 Dose: Not Given Documented by: RICHARD Non-Admin Reason: Patient Refused Atorvastatin Calcium (Atorvastatin Calcium 80 Mg Tablet) 80 mg PO DAILY [facility] Last Admin: 10/12/21 08:52 Dose: Not Given Documented by: RICHARD Non-Admin Reason: Patient Refused Diltiazem HCl (Diltiazem Hcl Cd 240 Mg Cap.Er.Deg) 240 mg PO DAILY [facility]; Protocol Last Admin: 10/12/21 08:53 Dose: Not Given Documented by: RICHARD Non-Admin Reason: Patient Refused Docusate Sodium (Docusate Sodium 100 Mg Capsule) 100 mg PO BID [facility] Last Admin: 10/12/21 08:53 Dose: Not Given Documented by: RICHARD Non-Admin Reason: Patient Refused Enoxaparin Sodium (Enoxaparin Sodium 40 Mg/0.4 Ml Syringe) 40 mg SUBCUT Q24H [facility] Last Admin: 10/11/21 15:31 Dose: 40 mg Documented by: RICHARD Ferrous Sulfate (Ferrous Sulfate 324 Mg Tablet.Dr) 324 mg PO BIDWM [facility] Last Admin: 10/12/21 08:52 Dose: Not Given Documented by: RICHARD Non-Admin Reason: Patient Refused Lactated Ringer's (Lr) 1,000 mls @ 80 mls/hr IVCONT .[id number] [facility] Last Admin: 10/12/21 01:52 Dose: 80 mls/hr Documented by: OFELIA Insulin Glargine (Insulin Glargine,Hum.Rec.Anlog 100 Unit/Ml 10 Ml Vial) 15 unit SUBCUT BEDTIME [facility] Last Admin: 10/11/21 20:32 Dose: Not Given Documented by: OFELIA Non-Admin Reason: poor po Insulin Human Lispro (Insulin Lispro 100 Unit/Ml 3 Ml Vial) 0 unit SUBCUT QIDACHS [facility]; Protocol Last Admin: 10/12/21 07:58 Dose: Not Given Documented by: RICHARD Non-Admin Reason: No Insulin Coverage Levothyroxine Sodium (Levothyroxine Sodium 100 Mcg Tablet) 100 mcg PO DAILY@0600 [facility] Last Admin: 10/12/21 04:46 Dose: 100 mcg Documented by: OFELIA Melatonin (Melatonin 3 Mg Tablet) 6 mg PO BEDTIME [facility] Last Admin: 10/11/21 20:41 Dose: Not Given Documented by: OFELIA Non-Admin Reason: Patient Refused Metoprolol Succinate (Metoprolol Succinate Er 50 Mg Tab.Er.24h) 50 mg PO DAILY [facility]; Protocol Last Admin: 10/12/21 08:53 Dose: Not Given Documented by: RICHARD Non-Admin Reason: Patient Refused Nystatin (Nystatin Ointment 15 Gm Tube) 1 appl TOPICAL BID [facility]; Protocol Last Admin: 10/12/21 11:33 Dose: 1 appl Documented by: RICHARD Omeprazole (Omeprazole 20 Mg Capsule.) 20 mg PO DAILY@0630 [facility] Last Admin: 10/12/21 04:48 Dose: 20 mg Documented by: OFELIA Ondansetron HCl (Ondansetron Hcl 4 Mg/2 Ml Vial) 4 mg IVPUSH Q8H PRN PRN Reason: Nausea and Vomiting Oxycodone HCl (Oxycodone Hcl Immed Release 5 Mg Tablet) 5 mg PO Q6H PRN PRN Reason: Pain, Severe (Pain Scale 7-10) Last Admin: 10/12/21 08:42 Dose: 5 mg Documented by: RICHARD Pharmacy Consult (Consult Rx Perform Med Rec) 1 each MISCELLANE ONCE PRN PRN Reason: Consult order Pharmacy Consult (Consult Rx Vancomycin Dosing) 1 each MISCELLANE DAILY PRN PRN Reason: Consult order Pregabalin (Pregabalin 100 Mg Capsule) 100 mg PO DAILY [facility] Last Admin: 10/12/21 08:53 Dose: Not Given Documented by: RICHARD Non-Admin Reason: Patient Refused Pregabalin (Pregabalin 200 Mg Capsule) 200 mg PO BEDTIME [facility] Last Admin: 10/11/21 20:31 Dose: 200 mg Documented by: OFELIA Sitagliptin Phosphate (Sitagliptin Phosphate 100 Mg Tablet) 100 mg PO DAILY [facility] Last Admin: 10/12/21 08:54 Dose: Not Given Documented by: RICHARD Non-Admin Reason: Patient Refused Sodium Chloride (0.9 % Sodium Chloride Flush 3 Ml Syringe) 3 ml IVFLUSH QSHIFT [facility] Last Admin: 10/12/21 08:00 Dose: Not Given Documented by: RICHARD Non-Admin Reason: IV Running Tamsulosin HCl (Tamsulosin Hcl 0.4 Mg Capsule) 0.4 mg PO BEDTIME [facility] Last Admin: 10/11/21 20:41 Dose: Not Given Documented by: OFELIA Non-Admin Reason: Patient Refused Trazodone HCl (Trazodone Hcl 50 Mg Tablet) 50 mg PO BEDTIME [facility] Last Admin: 10/11/21 20:41 Dose: Not Given Documented by: OFELIA Non-Admin Reason: Patient Refused Vitamin D (Cholecalciferol (Vitamin D3) 25 Mcg Tablet) 50 mcg PO DAILY [facility] Last Admin: 10/12/21 08:53 Dose: Not Given Documented by: RICHARD Non-Admin Reason: Patient Refused Labs CBC & Chem 7: 10/10/21 08:25 10/11/21 05:57 Labs: Laboratory Results - last 24 hr 10/09/21 10/10/21 10/10/21 16:57 07:27 13:21 POC Glucose 126 H 97 149 H 10/11/21 10/11/21 10/12/21 15:31 19:19 07:11 POC Glucose 132 H 112 86 10/12/21 11:25 POC Glucose 128 H Assessment and Plan (1) Toxic metabolic encephalopathy: Status: Acute (2) Amputation stump pain: Status: Acute (3) Adult failure to thrive: Status: Acute (4) Toe necrosis: Status: Acute Plan a 76 years old lady with PMH of type 2 diabetes, asthma, HTN, HLD, PAD post below-knee amputation RLE who presents to the hospital from facility for decreased oral intake, weakness and confusion. Hypotension Improved Secondary to blood pressure medication not sepsis , on hold Discontinue IV fluid Monitor blood pressure Toxic metabolic encephalopathy secondary to physical deconditioning, dementia and medications Recurrent orientation Cut down narcotics as possible Monitor Decreased oral intake, FTT in adult Secondary to general deconditioning, confusion, pain Start diet with supplements physical therapy , PT recommended she is not appropriate for skilled PT. Discussed goals of care with the family, her son, HCP okay with having discussion with hospice team. Hospice will be here by today to discuss. Stump pain Post amputation Continue p.o. oxycodone higher frequency Vascular surgery evaluation , no signs of infection continue pain management Left foot ulcer, dry gangrene Second toe dry gangrene Seems worsening in comparison to last admission No signs of infection, hold antibiotics for now Surgery input, consider amputation or hospice measures Hypernatremia Resolved Hypomagnesemia Resolved Hypocalcemia Resolved Corrected calcium of 8.4 Low vitamin-D Received calcium supplement and start vitamin-D Type 2 diabetes Insulin diabetic diet Hypertension continue Cardizem, lisinopril and metoprolol Neuropathy continue pregabalin PVD continue aspirin and atorvastatin DVT PPX Lovenox Dispo: Discuss goals of care with hospice team with a plan to discharge her home on palliative care or hospice. Quality Stroke Does the patient have a stroke diagnosis?: No VTE Prior VTE?: No VTE Risk Level:: Medical - moderate - high VTE Device Contraindication: Treatment Not Indicated VTE Drug Contraindication: N/A - Med Ordered
--- NOTE | 2021-10-12 11:54 | PC.NURSE ---
Skin/wound assessment completed today. Patient has a blister to right amp covered with small foam dressing. She also has bruisng/redness under right knee, apply nakia cream. Gangrenous toes on left foot. Betadine applied. Dermatitis rash to melany area and buttocks- Triad applied. Reform and sutures on incision site with black eschar. Betadine applied.
--- NOTE | 2021-10-12 14:19 | MHC.CM.PN ---
nurse correctional casework specialist note electronic medical record reviewed along with case discussed with staff nurse and hospitlsist patients son/hcp lamberto hernandez will be in today for hospice [facility] meeting , confirmed with arnaud and lamberto , he wants to take his mother home to her house, she has pickle maker and family that are with her 24 hrs , he will also be they several time of day as well as other family members , he is aware that someone needs to be there 24 hrs day /7 days week . health care proxy uploaded to [employer] , lamberto met with [facility] and completed a molst form this to also uploaed to [employer] consuelo , paln per arnaud is for discharge tomorrow to home once all equipement is delivered and date of sign on would be tuesday patient twill need action bls /
[2021-10-12 14:30] VITALS: BMI 27.3
--- NOTE | 2021-10-12 14:36 | MHC.CLN ---
RE: CONSULT RECENT S/P BKA SX WITH FRAGILE SKIN AND PT REFUSED FOOD, MEDS AND WATER WHILE AT REHAB PT WITH NONSIGNIFICANT WT LOSS BUT QUESTION EXACT AMOUNT R/T RECENT POST BKA WITH SOME WT LOSS EXPECTED. DIET RX: 2000DM-APPROPRIATE PT WITH ENSURE CLEAR TID IN PLACE RECOMMEND CHANGING SUPPLEMENT TO GLUCERNA BID AND TAMI TO PROMOTE WOUND HEALING SUPPS TO PROVIDE 634KCALS, 25G PROTEIN MONITOR PO INTAKE CLOSELY SEE ALSO FULL CLINICAL NUTRITION ASSESSMENT
[2021-10-12] MEDS: Enoxaparin Sodium 40 MG/0.4 ML SYRINGE SUBCUT (14:54)
--- NOTE | 2021-10-12 14:55 | PC.NURSE ---
Pt without IV access, ok to leave out per Dr Carson
--- NOTE | 2021-10-12 15:47 | PC.NURSE ---
Pt awake at times, at other times pt is difficult to arouse. Pt refuses some medications. Taking only a couple of bites of food throughout the day. IV access lost and per MD ok to leave out. Inc urine- purewick placed. Repositioned
[2021-10-12 16:00] VITALS: BP 111/64; PULSE 75; RESP 16; TEMP 36.2; O2SAT 95
[2021-10-12 16:38] LABS: Glucose, Whole Blood 176 mg/dL (60-115)
[2021-10-12 19:25] VITALS: BP 110/54; PULSE 96; RESP 15; TEMP 36.2; O2SAT 99
[2021-10-12 20:24] LABS: Glucose, Whole Blood 121 mg/dL (60-115)
[2021-10-13] VITALS: BP 108/58; PULSE 94; RESP 17; TEMP 36.3; O2SAT 99
[2021-10-13 04:00] VITALS: BP 109/61; PULSE 90; RESP 17; TEMP 36.1; O2SAT 97
[2021-10-13 07:23] VITALS: BP 108/55; PULSE 98; RESP 18; TEMP 36.4; O2SAT 100
[2021-10-13 07:44] LABS: Glucose, Whole Blood 123 mg/dL (60-115)
--- NOTE | 2021-10-13 09:15 | PM.DS ---
DS: Providers Provider Date of Service: 10/13/21 Date of admission: 10/08/21 15:22 Primary care physician: Roberto Carlos Sanford MD Consults: 10/08/21 15:23 Consult to General Surgery Routine Consulting Provider: Chandu Bynum Reason for consultation: Stump pain, left 2nd toe gangrene for your kind wendyal DS: Diagnosis Discharge Diagnosis (1) Toxic metabolic encephalopathy: Status: Acute (2) Amputation stump pain: Status: Acute (3) Adult failure to thrive: Status: Acute (4) Toe necrosis: Status: Acute (5) Hypernatremia: Status: Acute (6) Hypocalcemia: Status: Acute (7) Hypomagnesemia: Status: Acute DS: Summary Hospital Course Hospital Course: Admission note HPI ?a 76 years old lady with PMH of type 2 diabetes, asthma, HTN, HLD,? PAD? post below-knee amputation RLE who presents to the? hospital from facility for decreased oral intake, weakness and confusion.? According to [place] caregiver the patient has been refusing food, medication and water into rehab as she was complaining of significant pain and kept asking for the pain medications.? She reports that she is having pain at the stump area and her back.? The noticed worsening left foot ischemic changes specially on the 2nd toe.? She denies any fever, chills, abdominal pain, shortness of breath, nausea or vomiting or change in bowel habit.? No urinary symptoms.? Found to have hypernatremia and hypomagnesemia.? Admitted for further evaluation and treatment. Hospital course The patient was admitted to the hospital for evaluation of pain management. Responded fairly well to IV morphine and later to p.o. oxycodone. Seen by vascular surgery for the left toe necrosis with recommendation for either amputation versus comfort measures. Upon discussing that with the healthcare proxy decision was made to change the patient's status to hospice care. Evaluated by hospice team with decision to go back home and be followed there. The patient mentation did not improve significantly and continue to fluctuate during the day but she is more confused than baseline. Will need recurrent orientation hopefully will improve upon going back home. Noticed to have failure of thrive in adult with decreased oral intake. Seen by Physical therapy who believe she is not a candidate for with skilled therapy. Started on diet was supplement. Next Lyme Had electrolyte imbalance of hypomagnesemia, hypocalcemia and hypernatremia which all were corrected upon repeated labs. Plan to discharge home with hospice care. Time Spent with Patient Time attestation: Total time spent providing and/or coordinating discharge services: Discharge coordination time: Greater than 30 minutes Quality: Stroke Does the patient have a stroke diagnosis?: No Physical Exam Vital Signs: Vital Signs: Last Vital Signs Temp 97.5 F 10/13/21 07:23 Pulse 98 10/13/21 07:23 Resp 18 10/13/21 07:23 BP 108/55 L 10/13/21 07:23 Pulse Ox 100 10/13/21 07:23 BMI result Body Mass Index 27.3 Const: Other: Constitutional :? Alert, interactive , mildly confused Neck : Normal in spection, Supple C ardiovascular : RR R, S1 S2, no lower extremity edema R espiratory : Good bilateral air entr y,? no crackles, w heezes or rhonchi Gastrointestinal:? soft, lax, Normal bowel sounds, Non tender Skin :? Be low-knee amputatio n, stump wound loo ks clean with no e rythema or bleedin g , mildly tender to touch. chronic foot ulcer in the left foot with wor sening blackish di scoloration of the 2nd toe. Neurolog ical : Alert & lee ann ented to self but not to place, mild ly confused No foc al deficit Extrem: Other: Please refer to images above, right BKA with urszula intact, no overlying cellulitis, darkness over suture line, no fluctuance/induration. Left 2nd toe with large ulceration/necrosis. Left great toe with discoloration, lateral ulceration also noted to left 5th toe. NV intact. DS: Data Data Completed and Pending Completed studies during hospitalization [Text1]: Procedures Detachment at Right Lower Leg, Mid, Open Approach (09/24/21) Inspection of Gallbladder, Percutaneous Endoscopic Approach (06/03/21) Release Peritoneum, Open Approach (06/03/21) Repair Abdominal Wall, Open Approach (06/03/21) Resection of Gallbladder, Open Approach (06/03/21) Transfusion of Nonautologous Red Blood Cells into Peripheral Vein, Percutaneous Approach (09/24/21) Labs on day of discharge: Laboratory Results - last 24 hr 10/12/21 10/12/21 10/12/21 11:25 16:31 20:14 POC Glucose 128 H 176 H 121 H 10/13/21 07:18 POC Glucose 123 H Preliminary micro results at discharge 10/08/21 14:08 Blood Culture - Preliminary Blood - Venous No growth after 48 hours. 10/08/21 14:04 Blood Culture - Preliminary Blood - Venous No growth after 48 hours. Discharge Plan Discharge Patient Disposition: Hospice - Home Discharge Diagnosis: Confusion Stump pain Toe necrosis Referrals: Roberto Carlos Sanford MD [Primary Care Provider] - 1 Week Discharge Medications: New oxycodone 5 mg Tablet 5 mg PO Q6H PRN (Reason: Pain, Severe (Pain Scale 7-10)) Qty: 12 0RF nystatin 100,000 unit/gram Ointment 1 appl topical BID 7 Days 0RF Protocol: Apply to: Apply to: affected areas Rt leg Continued atorvastatin 80 mg tablet 1 tab PO DAILY 0RF Lantus Solostar U-100 Insulin 100 unit/mL (3 mL) insulin pen 15 unit subcut BEDTIME 0RF melatonin 5 mg tablet 10 mg PO BEDTIME 0RF Prolia 60 mg/mL syringe 60 mg subcut [id number] 0RF Rx Instructions: due 10/18/21 ferrous sulfate 324 mg (65 mg iron) Tablet,Delayed Release (Dr/Ec) 324 mg PO BIDWM Qty: 30 0RF aspirin 81 mg Tablet,Chewable 81 mg PO DAILY 0RF omeprazole 20 mg capsule,delayed release(DR/EC) 20 mg PO DAILY@0630 0RF tamsulosin 0.4 mg Capsule 0.4 mg PO BEDTIME Qty: 30 0RF pregabalin 100 mg capsule 100 mg PO DAILY Qty: 30 0RF pregabalin 200 mg capsule 200 mg PO BEDTIME Qty: 30 0RF sitagliptin 100 mg tablet 100 mg PO DAILY 0RF citalopram 20 mg tablet 20 mg PO DAILY 0RF diltiazem HCl 360 mg capsule,extended release 24 hr 360 mg PO DAILY 0RF metoprolol succinate 100 mg tablet extended release 24 hr 100 mg PO DAILY 0RF trazodone 50 mg tablet 50 mg PO BEDTIME 0RF levothyroxine 100 mcg tablet 100 mcg PO DAILY@0600 0RF Discontinued oxycodone 5 mg tablet 1 tab PO BID PRN (Reason: Pain) Qty: 30 0RF Discharge Orders: Discharge Order (Routine); Ordered 10/13/21 Ordered By: Graciela Carson Activity on Discharge: As tolerated Stand Alone Forms: Patient Portal Discharge page Care Plan Goals: Read below Health Concerns: Read below Plan of Treatment: Read below Assessment: You were admitted to the hospital for management of pain at the surgical stump. Noticed to pain more confused and lethargic. Noticed to have left foot toe necrosis. Evaluated by surgery team who recommended no further intervention. After discussions with family decision was made to change her status to hospice care. Hospice team will follow at home
[2021-10-13] MEDS: dilTIAZem HCL CD 240 MG CAP.ER.DEG PO (09:18)
[2021-10-13] MEDS: Acetaminophen 325 MG TABLET 650 MG PO (09:18)
[2021-10-13] MEDS: Ferrous Sulfate 324 MG TABLET.DR PO (09:19)
[2021-10-13] MEDS: Aspirin 81 MG TAB.CHEW PO (09:19)
[2021-10-13] MEDS: Docusate Sodium 100 MG CAPSULE PO (09:19)
[2021-10-13] MEDS: SITagliptin Phosphate 100 MG TABLET PO (09:19)
[2021-10-13] MEDS: Pregabalin 100 MG CAPSULE PO (09:19)
[2021-10-13] MEDS: Cholecalciferol (Vitamin D3) 25 MCG TABLET 50 MCG PO (09:19)
[2021-10-13] MEDS: Atorvastatin Calcium 80 MG TABLET PO (09:19)
[2021-10-13] MEDS: Metoprolol Succinate ER 50 MG TAB.ER.24H PO (09:19)
[2021-10-13] MEDS: Nystatin Ointment 15 GM TUBE 1 APPL TOPICAL (09:28)
[2021-10-13 10:51] VITALS: BP 105/54; PULSE 98; RESP 18; TEMP 36.8; O2SAT 100
[2021-10-13 11:19] LABS: Glucose, Whole Blood 231 mg/dL (60-115)
--- NOTE | 2021-10-13 11:53 | MHC.CM.PN ---
nurse shelter case manager note e;lectronic medical record reviewed along with case discssed with hoispitalist and staff nurse . spoke with son/hcp lamberto [phone] and tiana bauman [phone] they are still waiting for equip[ement to be delivered to the home and thye have not heard any thing about what time od delivery , i encpuraged them to call [facility] , once confimring delivery of wequipement patient will be discharge home with hospice and the hospice nurs will call for when /time to visit . tentatively set upaction bls for 2pm
[2021-10-13] MEDS: Insulin Lispro 100 UNIT/ML 3 ML VIAL SUBCUT (12:05)
== END 2021-10-13 13:50 | disposition hospice, home (50) | DRG 299 ==
LOC: HO.ED 15:18 → HO.EDOVER 16:25 → HO.S3 10-10 14:31
PROVIDERS: Physician Assistant; Admitting Provider Student in an Organized Health Care Education/Training Program; Emergency Provider Emergency Medicine; PCP Internal Medicine; Visit Provider Student in an Organized Health Care Education/Training Program
DX: E11.52 Type 2 diabetes mellitus with diabetic peripheral angiopathy with gangrene (principal); G92.8 Other toxic encephalopathy; E87.0 Hyperosmolality and hypernatremia; E11.621 Type 2 diabetes mellitus with foot ulcer; K21.9 Gastro-esophageal reflux disease without esophagitis; F03.90 Unspecified dementia, unspecified severity, without behavioral disturbance, psychotic disturbance, mood disturbance, and anxiety; E11.40 Type 2 diabetes mellitus with diabetic neuropathy, unspecified; R62.7 Adult failure to thrive; E83.51 Hypocalcemia; T87.89 Other complications of amputation stump; Z68.27 Body mass index [BMI] 27.0-27.9, adult; L97.529 Non-pressure chronic ulcer of other part of left foot with unspecified severity; E83.42 Hypomagnesemia; I95.2 Hypotension due to drugs; T46.5X5A Adverse effect of other antihypertensive drugs, initial encounter; Z20.822 Contact with and (suspected) exposure to COVID-19; M79.7 Fibromyalgia; Z87.891 Personal history of nicotine dependence; Z79.4 Long term (current) use of insulin; Z79.82 Long term (current) use of aspirin; Z79.890 Hormone replacement therapy; Z79.899 Other long term (current) drug therapy
CPT/HCPCS: 36415; 71045; 73630; 80048; 80076; 82140; 82306; 82947; 83605; 83735; 83880; 85025; 85027; 85610; 85652; 86140; 87040; 87635; 93005; 96361; 96365; 96366; 96375; 99285; J0610; J1650; J2270; J2543; J3370; J3475